=== PATIENT | male | born 1945 | race Caucasian/White ===

== ENCOUNTER → 2016-08-26 | Outpatient (CLI) | payer MEDICARE | END | disposition home or self-care (01) | LOC: LABWHC1 13:05 | PROVIDERS: ATTEND Psychiatry & Neurology Psychiatry | DX: F32.9 Major depressive disorder, single episode, unspecified (principal) | CPT/HCPCS: 36415; 80164; 84450; 84460 ==

== ENCOUNTER 2016-12-30 00:48 | Emergency (ER) | payer MEDICARE ==
--- NOTE | 2016-12-30 00:51 | ED ---
General Adult HPI - General Stated complaint: SEIZURE Time Seen by Provider: 12/30/16 00:49 Source: RN notes reviewed, old records reviewed - History of Present Illness Initial comments: This is a 71-year-old male to the ER for evaluation. This male presents for evaluation of seizure. Patient does have history of seizures. Patient does have medical history of heart disease. Patient did have witnessed seizure by family tonight. History of CVA - Related Data Home Medications Medication Instructions Recorded Confirmed Lisinopril 10 mg PO DAILY 06/14/15 08/12/16 Montelukast Sodium 10 mg PO DAILY 06/14/15 08/12/16 Oxybutynin Chloride [Ditropan] 5 mg PO BID 06/14/15 08/12/16 Albuterol Sulfate [Proair Hfa] 1 - 2 puff INHALATION RT-Q4H PRN 10/14/15 Budesonide/Formoterol Fumarate 2 puff INHALATION RT-BID 10/14/15 08/12/16 [Symbicort 160-4.5 Mcg Inhaler] Multivitamins, Thera [Multivitamin 1 tab PO DAILY 10/29/15 08/12/16 (formulary)] Calcium Carbonate [Tums] 500 mg PO QID 07/24/16 08/12/16 Divalproex ER [Depakote ER] 250 mg PO BID 07/24/16 08/12/16 Escitalopram [Lexapro] 10 mg PO DAILY 07/24/16 08/12/16 guaiFENesin [Mucinex] 600 mg PO Q12HR 07/24/16 08/12/16 Acetaminophen-Codeine 300-30mg 1 tab PO Q6HR PRN 08/12/16 08/12/16 [Tylenol w/codeine #3] Ipratropium-Albuterol Nebulize 3 ml INHALATION RT-TID 08/12/16 08/12/16 [Duoneb 0.5 mg-3 mg/3 ml Soln] Previous Rx's Medication Instructions Recorded Aspirin 81 mg PO BID chew 07/28/16 Atorvastatin [Lipitor] 40 mg PO DAILY #30 tab 07/28/16 Gabapentin [Neurontin] 300 mg PO TID #60 cap 07/28/16 Cefdinir [Omnicef] 300 mg PO BID #6 cap 08/15/16 predniSONE 10 mg PO DAILY #30 tab 08/15/16 Allergies Allergy/AdvReac Type Severity Reaction Status Date / Time No Known Allergies Allergy Verified 08/12/16 13:50 Review of Systems ROS Statement: Those systems with pertinent positive or pertinent negative responses have been documented in the HPI. ROS Other: All systems not noted in ROS Statement are negative. 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 Last Myocardial Infarction Date:: unknown History of Any Multi-Drug Resistant Organisms: None Reported Past Surgical History: Appendectomy, Back Surgery Additional Past Surgical History / Comment(s): EGD with bx/colonoscopy with bx. Past Anesthesia/Blood Transfusion Reactions: No Reported Reaction Additional Past Anesthesia/Blood Transfusion Reaction / Comment(s): Pt has never received blood. Past Psychological History: Anxiety, Depression Additional Psychological History / Comment(s): Pt resides with his neri. He has a walker which he uses prn. He no longer drives. His daughter is his snow plow tractor operator and drives him to appts. He has a legal gaurdian, Rica E-Semble ([facility]). Smoking Status: Former smoker Past Alcohol Use History: None Reported Additional Past Alcohol Use History / Comment(s): quit smoking August 2015, smoked for >50 yrs. Past alcohol abuse-quit drinking August 2015. Past Drug Use History: None Reported Additional Drug Use History / Comment(s): cocaine use in past-quit 2 yrs ago. - Past Family History Father Family Medical History: Cancer Additional Family Medical History / Comment(s): Father had throat cancer. Mother Family Medical History: Cancer Additional Family Medical History / Comment(s): Mother had breast cancer. General Exam General appearance: alert, in no apparent distress Head exam: Present: atraumatic, normocephalic, normal inspection Eye exam: Present: normal appearance, PERRL, EOMI. Absent: scleral icterus, conjunctival injection, periorbital swelling ENT exam: Present: normal exam, mucous membranes moist Neck exam: Present: normal inspection. Absent: tenderness, meningismus, lymphadenopathy Respiratory exam: Present: normal lung sounds bilaterally. Absent: respiratory distress, wheezes, rales, rhonchi, stridor Cardiovascular Exam: Present: regular rate, normal rhythm, normal heart sounds. Absent: systolic murmur, diastolic murmur, rubs, gallop, clicks GI/Abdominal exam: Present: soft, normal bowel sounds. Absent: distended, tenderness, guarding, rebound, rigid Extremities exam: Present: normal inspection, full ROM, normal capillary refill. Absent: tenderness, pedal edema, joint swelling, calf tenderness Back exam: Present: normal inspection Neurological exam: Present: alert, oriented X3, CN II-XII intact Psychiatric exam: Present: normal affect, normal mood Skin exam: Present: warm, dry, intact, normal color. Absent: rash Course Vital Signs 12/30/16 01:03 Temperature 97.6 F Pulse Rate 89 Respiratory 16 Rate Blood Pressure 125/88 O2 Sat by Pulse 93 L Oximetry - Reevaluation(s) Reevaluation #1: 12/30/16 02:33 Family family states patient is taking Depakote as prescribed EKG Findings - EKG Comments: EKG Findings:: EKG shows sinus rhythm rate of 80, NC 134, QRS 70, QTC 470 Medical Decision Making - Medical Decision Making 71-year-old male ER for evaluation of seizure, breakthrough seizure, at this point patient is awake alert no seizure-like activity, level is normal patient can be discharged home - Lab Data Result diagrams: 12/30/16 01:38 12/30/16 01:38 Lab Results 12/30/16 12/30/16 12/30/16 Range/Units 01:38 01:38 01:38 WBC 7.5 (3.8-10.6) k/uL RBC 3.91 L (4.30-5.90) m/uL Hgb 12.7 L (13.0-17.5) gm/dL Hct 37.4 L (39.0-53.0) % MCV 95.6 (80.0-100.0) fL MCH 32.4 (25.0-35.0) pg MCHC 33.8 (31.0-37.0) g/dL RDW 12.9 (11.5-15.5) % Plt Count 242 (150-450) k/uL Neutrophils % 63 % Lymphocytes % 24 % Monocytes % 7 % Eosinophils % 3 % Basophils % 0 % Neutrophils # 4.8 (1.3-7.7) k/uL Lymphocytes # 1.8 (1.0-4.8) k/uL Monocytes # 0.5 (0-1.0) k/uL Eosinophils # 0.2 (0-0.7) k/uL Basophils # 0.0 (0-0.2) k/uL PT (9.0-12.0) sec INR (<1.1) APTT (22.0-30.0) sec Sodium 129 L (137-145) mmol/L Potassium 4.1 (3.5-5.1) mmol/L Chloride 96 L (98-107) mmol/L Carbon Dioxide 25 (22-30) mmol/L Anion Gap 8 mmol/L BUN 15 (9-20) mg/dL Creatinine 0.90 (0.66-1.25) mg/dL Est GFR (MDRD) Af Amer >60 (>60 ml/min/1.73 sqM) Est GFR (MDRD) Non-Af >60 (>60 ml/min/1.73 sqM) Glucose 91 (74-99) mg/dL Calcium 8.9 (8.4-10.2) mg/dL Phosphorus 3.1 (2.5-4.5) mg/dL Magnesium 1.9 (1.6-2.3) mg/dL Total Bilirubin 0.3 (0.2-1.3) mg/dL AST 26 (17-59) U/L ALT 33 (21-72) U/L Alkaline Phosphatase 65 (38-126) U/L Total Creatine Kinase 152 (55-170) U/L CK-MB (CK-2) 3.5 H* (0.0-2.4) ng/mL CK-MB (CK-2) Rel Index 2.3 Troponin I <0.012 (0.000-0.034) ng/mL Total Protein 6.1 L (6.3-8.2) g/dL Albumin 3.5 (3.5-5.0) g/dL 12/30/16 Range/Units 01:38 WBC (3.8-10.6) k/uL RBC (4.30-5.90) m/uL Hgb (13.0-17.5) gm/dL Hct (39.0-53.0) % MCV (80.0-100.0) fL MCH (25.0-35.0) pg MCHC (31.0-37.0) g/dL RDW (11.5-15.5) % Plt Count (150-450) k/uL Neutrophils % % Lymphocytes % % Monocytes % % Eosinophils % % Basophils % % Neutrophils # (1.3-7.7) k/uL Lymphocytes # (1.0-4.8) k/uL Monocytes # (0-1.0) k/uL Eosinophils # (0-0.7) k/uL Basophils # (0-0.2) k/uL PT 12.2 H (9.0-12.0) sec INR 1.2 (<1.1) APTT 26.9 (22.0-30.0) sec Sodium (137-145) mmol/L Potassium (3.5-5.1) mmol/L Chloride (98-107) mmol/L Carbon Dioxide (22-30) mmol/L Anion Gap mmol/L BUN (9-20) mg/dL Creatinine (0.66-1.25) mg/dL Est GFR (MDRD) Af Amer (>60 ml/min/1.73 sqM) Est GFR (MDRD) Non-Af (>60 ml/min/1.73 sqM) Glucose (74-99) mg/dL Calcium (8.4-10.2) mg/dL Phosphorus (2.5-4.5) mg/dL Magnesium (1.6-2.3) mg/dL Total Bilirubin (0.2-1.3) mg/dL AST (17-59) U/L ALT (21-72) U/L Alkaline Phosphatase (38-126) U/L Total Creatine Kinase (55-170) U/L CK-MB (CK-2) (0.0-2.4) ng/mL CK-MB (CK-2) Rel Index Troponin I (0.000-0.034) ng/mL Total Protein (6.3-8.2) g/dL Albumin (3.5-5.0) g/dL - Radiology Data Radiology results: report reviewed (CT brain is negative for acute disease), image reviewed Disposition Clinical Impression: Altered mental status, Generalized seizure Disposition: HOME SELF-CARE Condition: Good Instructions: Recurrent Seizures in Adults (ED) Referrals: Errol Henderson MD [Primary Care Provider] - 1-2 days
[2016-12-30] MEDS ORDERED: SODIUM CHLORIDE 0.9% 500 ML IV STA (00:52)
[2016-12-30 01:07] VITALS: RESP 16; TEMP 97.6
[2016-12-30 01:52] LABS: Basophils % (A) 0 %; CH 32.5; CHCM 34.1; Eosinophils # (A) 0.2 k/uL (0-0.7); Eosinophils % (A) 3 %; HCT 37.4 % (39.0-53.0); HDW 2.35; HGB 12.7 gm/dL (13.0-17.5); Luc # (Auto) 0.17; Luc % (Auto) 2; Lymphocytes # (A) 1.8 k/uL (1.0-4.8); Lymphocytes % (A) 24 %; MCH 32.4 pg (25.0-35.0); MCHC 33.8 g/dL (31.0-37.0); MCV 95.6 fL (80.0-100.0); Mean Platelet Volume 6.3; Monocytes # (A) 0.5 k/uL (0-1.0); Monocytes % (A) 7 %; Neutrophils # (A) 4.8 k/uL (1.3-7.7); Neutrophils % (A) 63 %; RBC 3.91 m/uL (4.30-5.90); RDW 12.9 % (11.5-15.5); WBC 7.5 k/uL (3.8-10.6)
--- NOTE | 2016-12-30 02:00 | CT ---
EXAM: CT Head Without Intravenous Contrast CLINICAL HISTORY: Reason: weakness TECHNIQUE: Axial computed tomography images of the head/brain without intravenous contrast. Sagittal and coronal reformats were reviewed. CTDI is 77 mGy and DLP is 1047 mGy-cm This CT exam was performed using one or more of the following dose reduction techniques: automated exposure control, adjustment of the mA and/or kV according to patient size, and/or use of iterative reconstruction technique. COMPARISON: Head CT 07-24-16 FINDINGS: No intracranial hemorrhage, abnormal intra- or extra-axial collections or parenchymal lesions are seen. There are involutional changes with prominence of the sulci, basal cisterns and ventricles. Scattered white matter hypoattenuations are present, likely from small vessel disease. The lyles-white differentiation is preserved. No evidence of mass effect, midline shift, or edema. The osseous structures are unremarkable. The visualized portions of the paranasal sinuses are clear. IMPRESSION: 1. No acute intracranial process. 2. Involutional changes with small vessel disease.
[2016-12-30 02:04] LABS: ALT 33 U/L (21-72); AST 26 U/L (17-59); Alkaline Phosphatase 65 U/L (38-126); Anion Gap 8 mmol/L; Blood Urea Nitrogen 15 mg/dL (9-20); Calcium 8.9 mg/dL (8.4-10.2); Carbon Dioxide 25 mmol/L (22-30); Chloride 96 mmol/L (98-107); Glucose 91 mg/dL (74-99); Magnesium 1.9 mg/dL (1.6-2.3); Non-African American GFR(MDRD) >60 (>60 ml/min/1.73 sqM); Phosphorous 3.1 mg/dL (2.5-4.5); Potassium 4.1 mmol/L (3.5-5.1); Sodium 129 mmol/L (137-145); Total Bilirubin 0.3 mg/dL (0.2-1.3); Total Protein 6.1 g/dL (6.3-8.2)
[2016-12-30 02:07] LABS: INR 1.2 (<1.1); Partial Thromboplastin Time 26.9 sec (22.0-30.0); Prothrombin Time 12.2 sec (9.0-12.0)
[2016-12-30 02:12] LABS: Creatine Kinase 152 U/L (55-170)
[2016-12-30 02:24] LABS: Creatine Kinase MB 3.5 ng/mL (0.0-2.4)
[2016-12-30 02:26] LABS: Troponin I <0.012 ng/mL (0.000-0.034)
[2016-12-30 02:49] VITALS: BP 141/65; PULSE 78
== END 2016-12-30 02:49 | disposition home or self-care (01) ==
LOC: EC 00:48
DX: R56.9 Unspecified convulsions (principal); R41.82 Altered mental status, unspecified; F03.90 Unspecified dementia, unspecified severity, without behavioral disturbance, psychotic disturbance, mood disturbance, and anxiety; J44.9 Chronic obstructive pulmonary disease, unspecified; I10 Essential (primary) hypertension; K21.9 Gastro-esophageal reflux disease without esophagitis; F32.9 Major depressive disorder, single episode, unspecified; F41.9 Anxiety disorder, unspecified; Z87.891 Personal history of nicotine dependence; Z79.899 Other long term (current) drug therapy; Z79.51 Long term (current) use of inhaled steroids; Z87.01 Personal history of pneumonia (recurrent)
CPT/HCPCS: 36415; 70450; 80053; 82550; 82553; 83735; 84100; 84484; 85025; 85610; 85730; 93005; 99285

== ENCOUNTER → 2017-01-12 | Outpatient (CLI) | payer MEDICARE ==
--- NOTE | 2017-01-12 08:34 | MR ---
EXAMINATION TYPE: MR brain wo/w con DATE OF EXAM: 01/12/2017 8:14 AM COMPARISON: July 24, 2016 HISTORY: Stroke CONTRAST: Patient received 15 mL intravenous MultiHance gadolinium contrast. Multiplanar and multispin-echo imaging of the brain was performed . Pre and post contrast enhanced i mages are obtained. The ventricles, basal cisterns and sulci overlying the cerebral convexities are moderately enlarged. There is evidence of moderate periventricular white matter ischemic demyelination. Increased signal is also noted within the delma. Remote deep white matter insults are also noted. No acute edema is seen on diffusion weighted imaging. There is no evidence for midline shift or mass effect. Acute intracranial hemorrhage or extra-axial collection is not evident. No enhancing lesions are seen. The paranasal sinuses and mastoid air cells are well-aerated. IMPRESSION: Stable Age-related atrophic and chronic small vessel ischemic change. No acute intracranial process at this time. No enhancing lesions are seen.
== END | disposition home or self-care (01) ==
LOC: RADMRIMAIN 07:05
PROVIDERS: ATTEND Psychiatry & Neurology Pain Medicine
DX: G31.9 Degenerative disease of nervous system, unspecified (principal); I67.82 Cerebral ischemia
CPT/HCPCS: 70553; A9577

== ENCOUNTER → 2017-03-12 | Outpatient (CLI) | payer MEDICARE ==
[2017-03-12 11:04] LABS: Calcium 9.4 mg/dL (8.4-10.2); Magnesium 1.9 mg/dL (1.6-2.3)
[2017-03-12 12:27] LABS: Hemoglobin A1C 5.7 % (4.2-6.1)
[2017-03-14 09:15] LABS: Vitamin E (Alpha Tocopherol) 470 ug/dL (500-1800)
== END | disposition home or self-care (01) ==
LOC: LABWHC1 08:43
PROVIDERS: ATTEND Psychiatry & Neurology Pain Medicine
DX: G40.909 Epilepsy, unspecified, not intractable, without status epilepticus (principal); G89.4 Chronic pain syndrome; Z79.899 Other long term (current) drug therapy
CPT/HCPCS: 36415; 80164; 82306; 82310; 82550; 83036; 83519; 83735; 84207; 84425; 84446; 84590; 84591; 84597

== ENCOUNTER → 2017-05-13 | Outpatient (CLI) | payer MEDICARE ==
[2017-05-13 15:33] LABS: ALT 45 U/L (21-72); AST 31 U/L (17-59)
== END | disposition home or self-care (01) ==
LOC: LABWHC1 15:02
PROVIDERS: ATTEND Psychiatry & Neurology Psychiatry
DX: F32.9 Major depressive disorder, single episode, unspecified (principal)
CPT/HCPCS: 36415; 84450; 84460

== ENCOUNTER → 2017-07-20 | Day surgery (SDC) | payer MEDICARE ==
[2017-07-19 13:27] VITALS: BMI 27.3
[~2017-07-20] MED LIST: CEFTAROLINE FOSAMIL 600 MG in SODIUM CHLORIDE 0.9% 250 ML IVPB ONE; LIDOCAINE 2% INJ 20 MG/ML SQ ONE; cefTRIAXone IN SWFI 1,000 MG/10 ML SYRINGE IVP SCH
[2017-07-20 07:47] VITALS: BP 125/60; RESP 18; TEMP 98.2
[2017-07-20 10:22] VITALS: PULSE 68
--- NOTE | 2017-07-20 11:08 | IR ---
PICC LINE PLACEMENT: HISTORY: Infection requiring long-term antibiotic therapy PROCEDURE: Ultrasound and fluoroscopic guidance of PICC line placement. COMPLICATIONS: None ANESTHESIA: 1. 1% Lidocaine locally. FINDINGS/TECHNIQUE: The procedure was explained to the patient. The risks, complications, benefits and alternatives were discussed and any questions were answered. Informed consent was obtained. The patient was placed supine on the fluoroscopic table and prepped and draped in the usual sterile fas ion. Utilizing a 21 gauge needle and sonographic and fluoroscopic guidance, access in the vein was achieved and there is placement of a 0.018 guidewire. The vein is patent. A 4-F sheath was placed o tamara the guidewire. The guidewire and dilator were removed and a 4-F. PICC line was placed through th e sheath with the tip at the level of the SVC. The sheath was removed, the catheter was flushed and sutured into position. The patient was stable throughout the procedure and remained stable upon disc harge from the Department of Radiology. The vein puncture was patent under ultrasound. A river scale image was obtained to document patency of the vein punctured. All elements of the maximal barrier technique were utilized. FLUOROSCOPY TIME: 0.2 minutes, one image submitted. IMPRESSION: Successful PICC line placement under ultrasound and fluoroscopic guidance.
== END ==
LOC: CATHCVL 07:06
PROVIDERS: ATTEND Radiology Diagnostic Radiology
DX: J44.1 Chronic obstructive pulmonary disease with (acute) exacerbation (principal); M47.816 Spondylosis without myelopathy or radiculopathy, lumbar region; I25.9 Chronic ischemic heart disease, unspecified; I10 Essential (primary) hypertension; M54.6 Pain in thoracic spine; N40.0 Benign prostatic hyperplasia without lower urinary tract symptoms; Z79.82 Long term (current) use of aspirin; Z79.51 Long term (current) use of inhaled steroids; Z79.52 Long term (current) use of systemic steroids; Z79.899 Other long term (current) drug therapy
CPT/HCPCS: 96365; 96366; 36569; 76937; 77001; C1751; C1769; J2001; J1956; J1642; J0712

== ENCOUNTER → 2018-01-25 | Outpatient (CLI) | payer MEDICARE ==
--- NOTE | 2018-01-25 14:46 | US ---
EXAMINATION TYPE: US kidneys/renal and bladder DATE OF EXAM: 01/25/2018 COMPARISON: NONE CLINICAL HISTORY: R94.4 Abn results kidney function studies. Abnormal results of kidney function EXAM MEASUREMENTS: Right Kidney: 10.1x 4.0 x 4.0 cm Left Kidney: 10.1 x 5.5 x 4.6 cm Right Kidney: no evidence of hydronephrosis Left Kidney: lobulated mid/lower pole Bladder: not fully distended Bilateral Jets seen: no There is no evidence for hydronephrosis at this point in time. No nephrolithiasis is seen. The urina ry bladder is anechoic. Cortical medullary differentiation is maintained. IMPRESSION: The bladder is not distended. Lobular contour lower pole left kidney may be normal variant, consider short interval follow-up versus contrast enhanced CT or MRI for better evaluation to exclude mass.
== END | disposition home or self-care (01) ==
LOC: RADUSWWP 13:21
PROVIDERS: ATTEND Family Medicine
DX: R94.4 Abnormal results of kidney function studies (principal)
CPT/HCPCS: 76770

== ENCOUNTER 2018-04-13 13:35 | Inpatient (IN) | payer MEDICARE ==
[2018-04-13] MEDS ORDERED: DIPH,PERTUS(ACELL)TETVAC-LF 0.5 ML VIAL IM ONE (13:41)
--- NOTE | 2018-04-13 13:45 | ED ---
General Adult HPI - General Stated complaint: DIZZINESS, FALL, FACIAL INJURY Time Seen by Provider: 04/13/18 13:35 Source: RN notes reviewed - History of Present Illness Initial comments: This is a 72-year-old male who presents emergency department after he had a fall. Patient states he became dizzy in the parking lot of the hospital on his way to a doctor appointment. Patient states he started to walk fast try to get inside the hospital and then he fell and hit his nose on the ground. Patient states he now has some pain over the nose and a little bit of a headache. Patient denies any loss of consciousness. Patient denies being days. Patient denies any neck pain. Patient denies any numbness weakness. Patient denies any back pain chest pain difficulty breathing shortness of breath. Patient denies abdominal pain. Patient denies any extremity pain. - Related Data Home Medications Medication Instructions Recorded Confirmed Montelukast Sodium 10 mg PO DAILY 06/14/15 04/13/18 Oxybutynin Chloride [Ditropan] 5 mg PO BID 06/14/15 04/13/18 Albuterol Sulfate [Proair Hfa] 1 - 2 puff INHALATION RT-Q4H PRN 10/14/15 Budesonide/Formoterol Fumarate 2 puff INHALATION RT-BID 10/14/15 04/13/18 [Symbicort 160-4.5 Mcg Inhaler] Escitalopram [Lexapro] 10 mg PO DAILY 07/24/16 04/13/18 Gabapentin 600 mg PO TID 06/14/17 04/13/18 HYDROcodone/APAP 10-325MG [[place] 1 tab PO TID PRN 06/14/17 04/13/18 10-325] Primidone [Mysoline] 100 mg PO DAILY 06/14/17 04/13/18 Albuterol Nebulized [Ventolin 2.5 mg INHALATION RT-QID PRN 04/13/18 04/13/18 Nebulized] Divalproex Sodium [Depakote ER] 500 mg PO BID 04/13/18 04/13/18 Donepezil [Aricept] 20 mg PO HS 04/13/18 04/13/18 Ipratropium-Albuterol Nebulize 3 ml INHALATION RT-QID PRN 04/13/18 04/13/18 [Duoneb 0.5 mg-3 mg/3 ml Soln] Metoprolol Tartrate [Lopressor] 12.5 mg PO BID 04/13/18 04/13/18 Omeprazole 40 mg PO DAILY 04/13/18 04/13/18 Ranitidine HCl [Zantac] 150 mg PO BID 04/13/18 04/13/18 Rivaroxaban [Xarelto] 20 mg PO DAILY 04/13/18 04/13/18 rOPINIRole HCL [Requip] 0.5 mg PO TID 04/13/18 04/13/18 Previous Rx's Medication Instructions Recorded Atorvastatin [Lipitor] 40 mg PO DAILY #30 tab 07/28/16 Aspirin 81 mg PO DAILY #0 chew 08/10/17 Furosemide [Lasix] 40 mg PO DAILY #30 tab 08/10/17 Allergies Allergy/AdvReac Type Severity Reaction Status Date / Time No Known Allergies Allergy Verified 04/13/18 14:07 Review of Systems ROS Statement: Those systems with pertinent positive or pertinent negative responses have been documented in the HPI. ROS Other: All systems not noted in ROS Statement are negative. Past Medical History Past Medical History: COPD, CVA/TIA, Dementia, GERD/Reflux, Hyperlipidemia, Hypertension, Memory Impairment, Myocardial Infarction ([place]), Osteoarthritis (OA) , Pneumonia Additional Past Medical History / Comment(s): Dementia, COPD, coronary artery disease, CVA, acid reflux, hyperlipidemia, hypertension, osteoarthritis, hemorrhoids, small hiatal hernia, overactive bladder, chronic back pain, recovering alcoholic and he quit in August 2015 Last Myocardial Infarction Date:: unknown History of Any Multi-Drug Resistant Organisms: None Reported Past Surgical History: Appendectomy, Back Surgery Additional Past Surgical History / Comment(s): EGD with bx/colonoscopy with bx. Past Anesthesia/Blood Transfusion Reactions: No Reported Reaction Additional Past Anesthesia/Blood Transfusion Reaction / Comment(s): Pt has never received blood. Past Psychological History: Anxiety, Depression Smoking Status: Former smoker - Past Family History Father Family Medical History: Cancer Additional Family Medical History / Comment(s): Father had throat cancer. Mother Family Medical History: Cancer Additional Family Medical History / Comment(s): Mother had breast cancer. General Exam - General Exam Comments Initial Comments: GENERAL: Patient is well-developed and well-nourished. Patient is nontoxic and well- hydrated and is in mild distress. ENT: Neck is soft and supple. No significant lymphadenopathy is noted. Oropharynx is clear. Moist mucous membranes. Patient's in a c-collar did not move his neck until we get a CAT scan of the patient's C-spine EYES: The sclera were anicteric and conjunctiva were pink and moist. Extraocular movements were intact and pupils were equal round and reactive to light. Eyelids were unremarkable. PULMONARY: Unlabored respirations. Good breath sounds bilaterally. No audible rales rhonchi or wheezing was noted. CARDIOVASCULAR: There is a regular rate and rhythm without any murmurs gallops or rubs. ABDOMEN: Soft and nontender with normal bowel sounds. No palpable organomegaly was noted. There is no palpable pulsatile mass. SKIN: Patient has about a 1-1/2 cm laceration nose. Patient also has some superficial abrasions of the right wrist and fingers of the right hand NEUROLOGIC: Patient is alert and oriented x3. Cranial nerves II through XII are grossly intact. Motor and sensory are also intact. Normal speech, volume and content. Symmetrical smile. MUSCULOSKELETAL: Normal extremities with adequate strength and full range of motion. No lower extremity swelling or edema. No calf tenderness. LYMPHATICS: No significant lymphadenopathy is noted PSYCHIATRIC: Normal psychiatric evaluation. Course Vital Signs 04/13/18 04/13/18 13:39 15:25 Temperature 98.8 F Pulse Rate 62 55 L Respiratory 18 18 Rate Blood Pressure 137/59 140/67 O2 Sat by Pulse 96 97 Oximetry Procedures - Laceration Laceration #1 Consent Obtained: verbal consent Time Out Performed: Yes Indication: laceration Site: other (Nose) Size (cm): 1 Depth: simple, single layer Technique: other (Tissue adhesive) Patient Tolerated Procedure: well, no complications Medical Decision Making - Medical Decision Making EKG shows sinus bradycardia with PVC at 52 bpm KS interval is on a 42 QRS is 82 QT interval is 474 QTC is 440. Patient's EKG shows no ST segment elevation or depression or T wave abnormalities are noted. CT of the brain and C-spine are negative for any acute abnormality. However the CT of the brain does show a nasal bone fracture it's nondisplaced. Patient was given Ancef because it is an open fracture because the laceration. I spoke with sounds physician they agreed to admit the patient admitted the patient I wrote admitting orders. Patient's heart rate dipped down into the 30s a repeat EKG was done and showed that he had a 41 heart rate was a sinus bradycardia with a KS interval of 142 QRS is 86 QT interval is 508 QTC was 419. Patient was a symptomatically this time patient's EKG shows no ST segment elevation or depression. - Lab Data Result diagrams: 04/13/18 13:56 04/13/18 13:56 Lab Results 04/13/18 04/13/18 04/13/18 Range/Units 13:56 13:56 13:56 WBC 7.6 (3.8-10.6) k/uL RBC 4.19 L (4.30-5.90) m/uL Hgb 12.8 L (13.0-17.5) gm/dL Hct 40.5 (39.0-53.0) % MCV 96.8 (80.0-100.0) fL MCH 30.5 (25.0-35.0) pg MCHC 31.5 (31.0-37.0) g/dL RDW 13.5 (11.5-15.5) % Plt Count 314 (150-450) k/uL Neutrophils % 50 % Lymphocytes % 38 % Monocytes % 7 % Eosinophils % 3 % Basophils % 1 % Neutrophils # 3.8 (1.3-7.7) k/uL Lymphocytes # 2.9 (1.0-4.8) k/uL Monocytes # 0.5 (0-1.0) k/uL Eosinophils # 0.2 (0-0.7) k/uL Basophils # 0.1 (0-0.2) k/uL PT (9.0-12.0) sec INR (<1.2) APTT (22.0-30.0) sec Sodium 139 (137-145) mmol/L Potassium 4.3 (3.5-5.1) mmol/L Chloride 107 (98-107) mmol/L Carbon Dioxide 27 (22-30) mmol/L Anion Gap 5 mmol/L BUN 16 (9-20) mg/dL Creatinine 1.08 (0.66-1.25) mg/dL Est GFR (CKD-EPI)AfAm 78 (>60 ml/min/1.73 sqM) Est GFR (CKD-EPI)NonAf 68 (>60 ml/min/1.73 sqM) Glucose 91 (74-99) mg/dL Calcium 8.9 (8.4-10.2) mg/dL Magnesium 1.9 (1.6-2.3) mg/dL Total Bilirubin 0.4 (0.2-1.3) mg/dL AST 31 (17-59) U/L ALT 39 (21-72) U/L Alkaline Phosphatase 65 (38-126) U/L Total Creatine Kinase 56 (55-170) U/L CK-MB (CK-2) 1.3 (0.0-2.4) ng/mL CK-MB (CK-2) Rel Index 2.3 Troponin I <0.012 (0.000-0.034) ng/mL Total Protein 6.0 L (6.3-8.2) g/dL Albumin 3.3 L (3.5-5.0) g/dL 04/13/18 Range/Units 13:56 WBC (3.8-10.6) k/uL RBC (4.30-5.90) m/uL Hgb (13.0-17.5) gm/dL Hct (39.0-53.0) % MCV (80.0-100.0) fL MCH (25.0-35.0) pg MCHC (31.0-37.0) g/dL RDW (11.5-15.5) % Plt Count (150-450) k/uL Neutrophils % % Lymphocytes % % Monocytes % % Eosinophils % % Basophils % % Neutrophils # (1.3-7.7) k/uL Lymphocytes # (1.0-4.8) k/uL Monocytes # (0-1.0) k/uL Eosinophils # (0-0.7) k/uL Basophils # (0-0.2) k/uL PT 13.1 H (9.0-12.0) sec INR 1.4 H (<1.2) APTT 28.8 (22.0-30.0) sec Sodium (137-145) mmol/L Potassium (3.5-5.1) mmol/L Chloride (98-107) mmol/L Carbon Dioxide (22-30) mmol/L Anion Gap mmol/L BUN (9-20) mg/dL Creatinine (0.66-1.25) mg/dL Est GFR (CKD-EPI)AfAm (>60 ml/min/1.73 sqM) Est GFR (CKD-EPI)NonAf (>60 ml/min/1.73 sqM) Glucose (74-99) mg/dL Calcium (8.4-10.2) mg/dL Magnesium (1.6-2.3) mg/dL Total Bilirubin (0.2-1.3) mg/dL AST (17-59) U/L ALT (21-72) U/L Alkaline Phosphatase (38-126) U/L Total Creatine Kinase (55-170) U/L CK-MB (CK-2) (0.0-2.4) ng/mL CK-MB (CK-2) Rel Index Troponin I (0.000-0.034) ng/mL Total Protein (6.3-8.2) g/dL Albumin (3.5-5.0) g/dL Disposition Clinical Impression: Fall, Bradycardia, Dizziness, Nasal bones, open fracture Disposition: ADMITTED IP TO THIS [facility] Time of Disposition: 15:21
[2018-04-13 14:08] LABS: Basophils # (A) 0.1 k/uL (0-0.2); Basophils % (A) 1 %; Eosinophils # (A) 0.2 k/uL (0-0.7); Eosinophils % (A) 3 %; HCT 40.5 % (39.0-53.0); HGB 12.8 gm/dL (13.0-17.5); Lymphocytes # (A) 2.9 k/uL (1.0-4.8); Lymphocytes % (A) 38 %; MCH 30.5 pg (25.0-35.0); MCHC 31.5 g/dL (31.0-37.0); MCV 96.8 fL (80.0-100.0); Mean Platelet Volume 6.6; Monocytes # (A) 0.5 k/uL (0-1.0); Monocytes % (A) 7 %; Neutrophils # (A) 3.8 k/uL (1.3-7.7); Neutrophils % (A) 50 %; Platelet Count 314 k/uL (150-450); RBC 4.19 m/uL (4.30-5.90); RDW 13.5 % (11.5-15.5); WBC 7.6 k/uL (3.8-10.6)
[2018-04-13 14:24] LABS: Albumin 3.3 g/dL (3.5-5.0); Calcium 8.9 mg/dL (8.4-10.2); Magnesium 1.9 mg/dL (1.6-2.3); Potassium 4.3 mmol/L (3.5-5.1); Total Bilirubin 0.4 mg/dL (0.2-1.3)
[2018-04-13 14:25] LABS: INR 1.4 (<1.2); Partial Thromboplastin Time 28.8 sec (22.0-30.0); Prothrombin Time 13.1 sec (9.0-12.0)
[2018-04-13 14:30] LABS: Creatine Kinase 56 U/L (55-170)
[2018-04-13 14:42] LABS: Creatine Kinase MB 1.3 ng/mL (0.0-2.4); Troponin I <0.012 ng/mL (0.000-0.034)
--- NOTE | 2018-04-13 15:13 | CT ---
EXAMINATION TYPE: CT brain nette wo con DATE OF EXAM: 04/13/2018 COMPARISON: 12/30/2016 HISTORY: Trauma, fall CT DLP: [address] of the brain was performed. The ventricles, basal cisterns and sulci overlying the cerebral convexities demonstrate mild enlargem ent. There is no evidence for intracranial hemorrhage or sulcal effacement. There is decreased attenuatio n about the periventricular white matter and deep white matter of both cerebral hemispheres, compatib le with chronic small vessel ischemia. No mass effects are seen. If symptoms persist consider MRI. Osseous calvarium is intact. Chronic sinusitis noted. IMPRESSION: 1. Age related atrophic and chronic small vessel ischemic change without acute intracranial process seen at this time. CT Cervical Spine: Unenhanced CT of the cervical spine was performed with bone and soft tissue window settings submitted . Coronal and sagittal reconstruction is obtained. There is normal alignment and prevertebral soft tissues. No evidence for acute cervical fracture . Scattered degenerative disc disease and spondylosis. Biapical scarring. IMPRESSION: 1. No evidence for acute fracture or subluxation of the cervical spine.
[2018-04-13] MEDS ORDERED: ACETAMINOPHEN TAB 500 MG TAB PO STA (15:17)
[2018-04-13] MEDS ORDERED: TOPICAL SKIN ADHESIVE 1 EACH AMP TOPICAL ONE (15:18)
[2018-04-13] MEDS ORDERED: ceFAZolin IN SWFI 2 GM/20 ML SYRINGE IVP STA (15:21)
[2018-04-13] MEDS ORDERED: SODIUM CHLORIDE 0.9% 1,000 ML IV ONE (15:29)
[2018-04-13] MEDS ORDERED: traMADol 50 MG TAB PO PRN (18:04)
[2018-04-13] MEDS ORDERED: NALOXONE 0.4 MG/ML 1 ML VIAL IV PRN (18:04)
--- NOTE | 2018-04-13 18:26 | P.HPIM ---
History of Present Illness H&P Date: 04/13/18 Chief Complaint: Fall 72-year-old male who presents emergency department after he had a fall. Patient states he was not wearing the oxygen that he is supposed to, became dizzy while he was walking fast in the parking lot of the hospital on his way to a doctor appointment. He had slight chest pain after the fall. He denied losing consciousness. After the fall he hit his nose as well as right knee on the ground. Patient states he now has some pain over the nose and a little bit of a headache. No seizure activity, no focal weakness, no blurry vision or double vision. No slurred speech. No neck pain. He stated that he has chronic shortness of breath and that has not gotten worse lately. He felt nauseous but no vomiting, no abdominal pain. No fevers but he has some chills at times. In the emergency department he was found to have significant bradycardia with heart rate ranging between 40-50. He was subsequently admitted for further evaluation and management. 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 Past Anesthesia/Blood Transfusion Reactions: No Reported Reaction Additional Past Anesthesia/Blood Transfusion Reaction / Comment(s): Pt has never received blood. Past Psychological History: Anxiety, Depression Smoking Status: Former smoker - Past Family History Father Family Medical History: Cancer Additional Family Medical History / Comment(s): Father had throat cancer. Mother Family Medical History: Cancer Additional Family Medical History / Comment(s): Mother had breast cancer. Medications and Allergies Home Medications Medication Instructions Recorded Confirmed Type Montelukast Sodium 10 mg PO DAILY 06/14/15 04/13/18 History Oxybutynin Chloride [Ditropan] 5 mg PO BID 06/14/15 04/13/18 History Albuterol Sulfate [Proair Hfa] 1 - 2 puff INHALATION RT-Q4H PRN 10/14/15 History Budesonide/Formoterol Fumarate 2 puff INHALATION RT-BID 10/14/15 04/13/18 History [Symbicort 160-4.5 Mcg Inhaler] Escitalopram [Lexapro] 10 mg PO DAILY 07/24/16 04/13/18 History Atorvastatin [Lipitor] 40 mg PO DAILY #30 tab 07/28/16 04/13/18 Rx Gabapentin 600 mg PO TID 06/14/17 04/13/18 History HYDROcodone/APAP 10-325MG [[place] 1 tab PO TID PRN 06/14/17 04/13/18 History 10-325] Primidone [Mysoline] 100 mg PO DAILY 06/14/17 04/13/18 History Aspirin 81 mg PO DAILY #0 chew 08/10/17 04/13/18 Rx Furosemide [Lasix] 40 mg PO DAILY #30 tab 08/10/17 04/13/18 Rx Albuterol Nebulized [Ventolin 2.5 mg INHALATION RT-QID PRN 04/13/18 04/13/18 History Nebulized] Divalproex Sodium [Depakote ER] 500 mg PO BID 04/13/18 04/13/18 History Donepezil [Aricept] 20 mg PO HS 04/13/18 04/13/18 History Ipratropium-Albuterol Nebulize 3 ml INHALATION RT-QID PRN 04/13/18 04/13/18 History [Duoneb 0.5 mg-3 mg/3 ml Soln] Metoprolol Tartrate [Lopressor] 12.5 mg PO BID 04/13/18 04/13/18 History Omeprazole 40 mg PO DAILY 04/13/18 04/13/18 History Ranitidine HCl [Zantac] 150 mg PO BID 04/13/18 04/13/18 History Rivaroxaban [Xarelto] 20 mg PO DAILY 04/13/18 04/13/18 History rOPINIRole HCL [Requip] 0.5 mg PO TID 08/22/18 08/22/18 History Allergies Allergy/AdvReac Type Severity Reaction Status Date / Time No Known Allergies Allergy Verified 04/13/18 14:07 Physical Exam Vitals: Vital Signs Temp Pulse Resp BP Pulse Ox 04/13/18 17:28 46 L 18 136/63 100 04/13/18 16:19 52 L 04/13/18 16:12 38 L 18 164/84 99 04/13/18 15:25 55 L 18 140/67 97 04/13/18 13:39 98.8 F 62 18 137/59 96 Intake and Output 04/13/18 04/13/18 04/13/18 06:59 14:59 22:59 Other: Weight 79.379 kg Constitutional: No acute distress, conversant, pleasant Eyes:Anicteric sclerae, moist conjunctiva, no lid-lag, PERRLA, ENMT: Bloody nose, oropharynx clear, no erythema, exudates Neck: Supple, FROM, no masses, or JVD, No carotid bruits, No thyromegaly Lungs: Clear to auscultation, Clear to percussion, Normal respiratory effort, no accessory muscle use Cardiovascular: Bradycardia, irregular, No murmurs, gallops, or rubs, No peripheral edema Abdominal: Soft, Nontender, no guarding, rebound or rigidity, Normoactive bowel sounds, No hepatomegaly, No splenomegaly, No palpable mass Skin: Normal temperature, tone, texture, turgor, no induration, No subcutaneous nodules, No rash, lesions, No ulcers Extremities: Right knee bruise, no digital cyanosis, No clubbing, Pedal pulses intact and symmetrical, Radial pulses intact and symmetrical, No calf tenderness Psychiatric: Alert and oriented to person, place and time, appropriate affect, intact judgement Neuro: Muscles Strength 5/5 in all 4 extremities, Sensation to light touch grossly present throughout, Cranial nerves II-XII grossly intact, no focal sensory deficits Results CBC & Chem 7: 04/13/18 13:56 04/13/18 13:56 Labs: Abnormal Lab Results - Last 24 Hours (Table) 04/13/18 04/13/18 04/13/18 Range/Units 13:56 13:56 13:56 RBC 4.19 L (4.30-5.90) m/uL Hgb 12.8 L (13.0-17.5) gm/dL PT 13.1 H (9.0-12.0) sec INR 1.4 H (<1.2) Total Protein 6.0 L (6.3-8.2) g/dL Albumin 3.3 L (3.5-5.0) g/dL Assessment and Plan Plan: Severe bradycardia, high degree AV block Might qualify for a pacemaker, EKG reviewed Cardiology evaluation Monitor on telemetry Admit to selective Chest pain/ with history of CAD and [place] Rule out ACS, initial troponin negative Cycle troponins Monitor on telemetry History of COPD Stable No exacerbation Continue home inhalers and nebulizers. 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
[2018-04-13] MEDS: IPRATROPIUM-ALBUTEROL 3 ML NEB INHALATION PRN (19:48)
[2018-04-13] MEDS: SYMBICORT 160-4.5 MCG INHALER INHALATION SCH (19:48)
[2018-04-13] MEDS: HYDROcodone/APAP 10-325MG 1 EACH TAB PO PRN (20:25)
[2018-04-13] MEDS: FAMOTIDINE 20 MG TAB PO SCH (20:27)
[2018-04-13] MEDS: DONEPEZIL 10 MG TAB PO SCH (20:27)
[2018-04-13] MEDS: DIVALPROEX ER 500 MG TAB.ER.24H PO SCH (20:28)
[2018-04-13] MEDS: OXYBUTYNIN CHLORIDE 5 MG TAB PO SCH (20:28)
[2018-04-13] MEDS: GABAPENTIN 300 MG CAP PO SCH (20:28)
[2018-04-13] MEDS: ACETAMINOPHEN TAB 325 MG TAB PO PRN (23:09)
[2018-04-13 23:30] LABS: Creatine Kinase 62 U/L (55-170)
[2018-04-13 23:42] LABS: Creatine Kinase MB 1.7 ng/mL (0.0-2.4); Troponin I <0.012 ng/mL (0.000-0.034)
[2018-04-14 06:04] LABS: Basophils # (A) 0.1 k/uL (0-0.2); Basophils % (A) 1 %; Eosinophils # (A) 0.2 k/uL (0-0.7); Eosinophils % (A) 3 %; HCT 37.7 % (39.0-53.0); HGB 12.2 gm/dL (13.0-17.5); Lymphocytes # (A) 2.4 k/uL (1.0-4.8); Lymphocytes % (A) 36 %; MCH 31.3 pg (25.0-35.0); MCHC 32.2 g/dL (31.0-37.0); MCV 96.9 fL (80.0-100.0); Mean Platelet Volume 6.8; Monocytes # (A) 0.6 k/uL (0-1.0); Monocytes % (A) 9 %; Neutrophils # (A) 3.2 k/uL (1.3-7.7); Neutrophils % (A) 49 %; Platelet Count 264 k/uL (150-450); RBC 3.89 m/uL (4.30-5.90); RDW 13.2 % (11.5-15.5); WBC 6.5 k/uL (3.8-10.6)
[2018-04-14 06:14] LABS: ALT 38 U/L (21-72); AST 26 U/L (17-59); Albumin 2.9 g/dL (3.5-5.0); Alkaline Phosphatase 61 U/L (38-126); Anion Gap 6 mmol/L; Blood Urea Nitrogen 16 mg/dL (9-20); Calcium 8.7 mg/dL (8.4-10.2); Carbon Dioxide 25 mmol/L (22-30); Chloride 107 mmol/L (98-107); Glucose 83 mg/dL (74-99); Phosphorus 4.2 mg/dL (2.5-4.5); Potassium 4.3 mmol/L (3.5-5.1); Sodium 138 mmol/L (137-145); Total Bilirubin 0.3 mg/dL (0.2-1.3); Total Protein 5.4 g/dL (6.3-8.2)
[2018-04-14 06:27] LABS: Creatine Kinase 55 U/L (55-170)
[2018-04-14] MEDS: PANTOPRAZOLE 40 MG TABLET PO SCH (06:30)
[2018-04-14 06:39] LABS: Creatine Kinase MB 2.2 ng/mL (0.0-2.4); Troponin I <0.012 ng/mL (0.000-0.034)
[2018-04-14] MEDS: FAMOTIDINE 20 MG TAB PO SCH ×2 (07:58→20:21)
[2018-04-14] MEDS: ESCITALOPRAM 10 MG TAB PO SCH (07:58)
[2018-04-14] MEDS: GABAPENTIN 300 MG CAP PO SCH ×3 (07:58→20:21)
[2018-04-14] MEDS: ASPIRIN 81 MG PO SCH (07:58)
[2018-04-14] MEDS: MONTELUKAST 10 MG TAB PO SCH (07:58)
[2018-04-14] MEDS: ATORVASTATIN 40 MG TAB PO SCH (07:58)
[2018-04-14] MEDS: RIVAROXABAN 20 MG TAB PO SCH (07:58)
[2018-04-14] MEDS: OXYBUTYNIN CHLORIDE 5 MG TAB PO SCH ×2 (07:59→20:20)
[2018-04-14] MEDS: FUROSEMIDE 40 MG TAB PO SCH (07:59)
[2018-04-14] MEDS: DIVALPROEX ER 500 MG TAB.ER.24H PO SCH ×2 (07:59→20:21)
[2018-04-14] MEDS: PRIMIDONE 50 MG TAB PO SCH (07:59)
[2018-04-14] MEDS: HYDROcodone/APAP 10-325MG 1 EACH TAB PO PRN ×2 (08:10→18:18)
[2018-04-14] MEDS: IPRATROPIUM-ALBUTEROL 3 ML NEB INHALATION PRN ×3 (08:40→15:56)
[2018-04-14] MEDS: SYMBICORT 160-4.5 MCG INHALER INHALATION SCH ×2 (08:40→18:59)
--- NOTE | 2018-04-14 09:58 | P.PN ---
Subjective Progress Note Date: 04/14/18 Principal diagnosis: Dizziness and fall Discussed with the patient's daughter, patient has been having congestion and cough with phlegm production over the last year. Daughter is requesting pulmonary medicine to evaluate patient because of history of severe COPD. Otherwise patient denied having dizziness, pain, fevers or chills. Objective - Vital Signs Vital signs: Vital Signs Temp 97.9 F 04/14/18 08:00 Pulse 64 04/14/18 08:56 Resp 18 04/14/18 08:00 BP 141/61 04/14/18 08:00 Pulse Ox 99 04/14/18 08:00 Intake & Output 04/13/18 04/14/18 04/14/18 18:59 06:59 18:59 Intake Total 118 Output Total 0 325 Balance 0 -325 118 Weight 79.379 kg 75.5 kg Intake: Oral 118 Output: Urine 0 325 Other: # Voids 1 # Bowel Movements 1 - Exam Constitutional: No acute distress, conversant, pleasant Eyes:Anicteric sclerae, moist conjunctiva, no lid-lag, PERRLA, ENMT: Bloody nose, oropharynx clear, no erythema, exudates Neck: Supple, FROM, no masses, or JVD, No carotid bruits, No thyromegaly Lungs: Clear to auscultation, Clear to percussion, Normal respiratory effort, no accessory muscle use Cardiovascular: RRR, No murmurs, gallops, or rubs, No peripheral edema Abdominal: Soft, Nontender, no guarding, rebound or rigidity, Normoactive bowel sounds, No hepatomegaly, No splenomegaly, No palpable mass Skin: Normal temperature, tone, texture, turgor, no induration, No subcutaneous nodules, No rash, lesions, No ulcers Extremities: Right knee bruise, no digital cyanosis, No clubbing, Pedal pulses intact and symmetrical, Radial pulses intact and symmetrical, No calf tenderness Psychiatric: Alert and oriented to person, place and time, appropriate affect, intact judgement Neuro: Muscles Strength 5/5 in all 4 extremities, Sensation to light touch grossly present throughout, Cranial nerves II-XII grossly intact, no focal sensory deficits - Labs CBC & Chem 7: 04/14/18 05:40 04/14/18 05:40 Labs: Abnormal Lab Results - Last 24 Hours (Table) 04/13/18 04/13/1804/13/18 Range/Units 13:56 13:56 13:56 RBC 4.19 L (4.30-5.90) m/uL Hgb 12.8 L (13.0-17.5) gm/dL Hct (39.0-53.0) % PT 13.1 H (9.0-12.0) sec INR 1.4 H (<1.2) Total Protein 6.0 L (6.3-8.2) g/dL Albumin 3.3 L (3.5-5.0) g/dL 04/14/18 04/14/18 Range/Units 05:40 05:40 RBC 3.89 L (4.30-5.90) m/uL Hgb 12.2 L (13.0-17.5) gm/dL Hct 37.7 L (39.0-53.0) % PT (9.0-12.0) sec INR (<1.2) Total Protein 5.4 L (6.3-8.2) g/dL Albumin 2.9 L (3.5-5.0) g/dL Assessment and Plan Plan: Severe bradycardia, high degree AV block Noted on admission Might qualify for a pacemaker, EKG reviewed Cardiology evaluation, discussed with [employer] Monitor on telemetry, heart rate improved today Chest pain/ with history of CAD and MD ACS ruled out History of COPD Stable No exacerbation Consult pulmonary Continue home inhalers and nebulizers. 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
--- NOTE | 2018-04-14 10:58 | P.CRDCN ---
History of Present Illness Consult date: 04/14/18 Requesting physician: Yesenia Moore Reason for Consult (text): Bradycardia Chief complaint: Fall History of present illness: This is a pleasant 72-year-old gentleman has history of dementia, his daughter is his guardian and she is also at bedside, she provided most of his past medical history. Patient has severe COPD with home O2 use,prior CVA, hypertension, hyperlipidemia, prior history of smoking, patient apparently quit smoking 2 years ago. Patient apparently was at his doctor's office yesterday in the parking lot, became extremely dizzy and fell to the ground. It is unclear as to whether or not patient had a complete syncopal episode or not. He has a large laceration to the nose area for which he required stitches. According to the daughter, patient has been having episodes of dizziness and occasional falls at home. EKG on arrival here shows a sinus bradycardia with nonspecific ST-T wave changes and occasional PVCs. Subsequent EKG shows same. CT of the cervical spine was performed, did not reveal any evidence for acute fracture of subluxation of the spine. CT of the brain did not reveal any acute intracranial process. Blood pressure on arrival here 136/60 with a heart rate in the 60s, 96% on 3 L of oxygen. Let pressure this morning 140/60 with a heart rate in the 60s, 99% on 3 L of oxygen. White blood cell count is normal, hemoglobin 12.2, platelet count 264. Sodium 138, potassium 4.3, BUN 16, creatinine 0.9. Troponins are negative 3. At the time of my examination this morning, patient is complaining of a significant amount of pain in his nose area , no other complaints. Daughter is at bedside. 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 Past Anesthesia/Blood Transfusion Reactions: No Reported Reaction Additional Past Anesthesia/Blood Transfusion Reaction / Comment(s): Pt has never received blood. Past Psychological History: Anxiety, Depression Additional Psychological History / Comment(s): Pt resides with his neri. He has a walker which he uses prn.home 02 He no longer drives. His daughter is his retort setter and drives him to appts. his legal guardain/ dpoa is, Rica Hess ([facility] ). Smoking Status: Former smoker Past Alcohol Use History: None Reported Additional Past Alcohol Use History / Comment(s): quit smoking August 2015, smoked for >50 yrs. Past alcohol abuse-quit drinking August 2015. Past Drug Use History: None Reported Additional Drug Use History / Comment(s): cocaine use in past-quit 4-5yrs ago.either 2012 or 2013 per pt. - Past Family History Father Family Medical History: Cancer Additional Family Medical History / Comment(s): Father had throat cancer. Mother Family Medical History: Cancer Additional Family Medical History / Comment(s): Mother had breast cancer. Medications and Allergies Home Medications Medication Instructions Recorded Confirmed Type Montelukast Sodium 10 mg PO DAILY 06/14/15 04/13/18 History Oxybutynin Chloride [Ditropan] 5 mg PO BID 06/14/15 04/13/18 History Albuterol Sulfate [Proair Hfa] 1 - 2 puff INHALATION RT-Q4H PRN 10/14/15 History Budesonide/Formoterol Fumarate 2 puff INHALATION RT-BID 10/14/15 04/13/18 History [Symbicort 160-4.5 Mcg Inhaler] Escitalopram [Lexapro] 10 mg PO DAILY 07/24/16 04/13/18 History Atorvastatin [Lipitor] 40 mg PO DAILY #30 tab 07/28/16 04/13/18 Rx Gabapentin 600 mg PO TID 06/14/17 04/13/18 History HYDROcodone/APAP 10-325MG [[place] 1 tab PO TID PRN 06/14/17 04/13/18 History 10-325] Primidone [Mysoline] 100 mg PO DAILY 06/14/17 04/13/18 History Aspirin 81 mg PO DAILY #0 chew 08/10/17 04/13/18 Rx Furosemide [Lasix] 40 mg PO DAILY #30 tab 08/10/17 04/13/18 Rx Albuterol Nebulized [Ventolin 2.5 mg INHALATION RT-QID PRN 04/13/18 04/13/18 History Nebulized] Divalproex Sodium [Depakote ER] 500 mg PO BID 04/13/18 04/13/18 History Donepezil [Aricept] 20 mg PO HS 04/13/18 04/13/18 History Ipratropium-Albuterol Nebulize 3 ml INHALATION RT-QID PRN 04/13/18 04/13/18 History [Duoneb 0.5 mg-3 mg/3 ml Soln] Metoprolol Tartrate [Lopressor] 12.5 mg PO BID 04/13/18 04/13/18 History Omeprazole 40 mg PO DAILY 04/13/18 04/13/18 History Ranitidine HCl [Zantac] 150 mg PO BID 04/13/18 04/13/18 History Rivaroxaban [Xarelto] 20 mg PO DAILY 04/13/18 04/13/18 History rOPINIRole HCL [Requip] 0.5 mg PO TID 04/13/18 04/13/18 History Allergies Allergy/AdvReac Type Severity Reaction Status Date / Time caffeine AdvReac Diarrhea Verified 04/14/18 08:12 Physical Exam Vitals: Vital Signs Temp Pulse Pulse Pulse Pulse Resp BP 04/14/18 08:56 64 04/14/18 08:40 64 04/14/18 08:00 97.9 F 62 18 04/14/18 04:00 97.1 F L 58 L 17 04/14/18 00:00 97.1 F L 48 L 17 04/13/18 20:01 57 L 04/13/18 20:00 97.1 F L 53 L 17 04/13/18 19:49 54 L 04/13/18 18:47 97 F L 68 65 46 L 18 04/13/18 17:28 46 L 18 136/63 04/13/18 16:19 52 L 04/13/18 16:12 38 L 18 164/84 04/13/18 15:25 55 L 18 140/67 04/13/18 13:39 98.8 F 62 18 137/59 BP BP BP Pulse Ox 04/14/18 08:56 04/14/18 08:40 04/14/18 08:00 141/61 99 04/14/18 04:00 125/50 99 04/14/18 00:00 136/46 100 04/13/18 20:01 04/13/18 20:00 157/72 99 04/13/18 19:49 04/13/18 18:47 113/93 126/83 127/62 97 04/13/18 17:28 100 04/13/18 16:19 04/13/18 16:12 99 04/13/18 15:25 97 04/13/18 13:39 96 Intake and Output 04/13/18 04/14/18 04/14/18 22:59 06:59 14:59 Intake Total 118 Output Total 100 225 Balance -100 -225 118 Intake: Oral 118 Output: Urine 100 225 Other: # Voids 1 # Bowel Movements 1 Weight 75.5 kg PHYSICAL EXAMINATION: GENERAL: 72-year-old gentleman in no acute distress at the time of my examination HEENT: Head is atraumatic, normocephalic. Laceration noted to the nose. Pupils equal, round. Sclera anicteric. Conjunctiva are clear. Mucous membranes of the mouth are moist. Neck is supple. There is no elevated jugular venous pressure. No carotid bruit is heard. HEART EXAMINATION: Heart S1, S2 normal. No murmur or gallop heard. CHEST EXAMINATION: Lungs reveal scattered coarse rhonchi and wheezing throughout. ABDOMEN: Soft, nontender. Bowel sounds are heard. No organomegaly noted. EXTREMITIES: 1+ peripheral pulses with no evidence of peripheral edema and no calf tenderness noted. NEUROLOGIC [patient is awake, alert , confused. Oriented times one. Results 04/14/18 05:40 04/14/18 05:40 Cardiac Enzymes 04/13/18 04/13/18 04/13/18 Range/Units 13:56 13:56 22:17 AST 31 (17-59) U/L CK-MB (CK-2) 1.3 1.7 (0.0-2.4) ng/mL Troponin I <0.012 <0.012 (0.000-0.034) ng/mL 04/14/18 04/14/18 Range/Units 05:40 05:40 AST 26 (17-59) U/L CK-MB (CK-2) 2.2 (0.0-2.4) ng/mL Troponin I <0.012 (0.000-0.034) ng/mL Coagulation 04/13/18 Range/Units 13:56 PT 13.1 H (9.0-12.0) sec APTT 28.8 (22.0-30.0) sec CBC 04/13/18 04/14/18 Range/Units 13:56 05:40 WBC 7.6 6.5 (3.8-10.6) k/uL RBC 4.19 L 3.89 L (4.30-5.90) m/uL Hgb 12.8 L 12.2 L (13.0-17.5) gm/dL Hct 40.5 37.7 L (39.0-53.0) % Plt Count 314 264 (150-450) k/uL Comprehensive Metabolic Panel 04/13/18 04/14/18 Range/Units 13:56 05:40 Sodium 139 138 (137-145) mmol/L Potassium 4.3 4.3 (3.5-5.1) mmol/L Chloride 107 107 (98-107) mmol/L Carbon Dioxide 27 25 (22-30) mmol/L BUN 16 16 (9-20) mg/dL Creatinine 1.08 0.90 (0.66-1.25) mg/dL Glucose 91 83 (74-99) mg/dL Calcium 8.9 8.7 (8.4-10.2) mg/dL AST 31 26 (17-59) U/L ALT 39 38 (21-72) U/L Alkaline Phosphatase 65 61 (38-126) U/L Total Protein 6.0 L 5.4 L (6.3-8.2) g/dL Albumin 3.3 L 2.9 L (3.5-5.0) g/dL Current Medications Generic Name Dose Route Start Last Admin Trade Name Freq PRN Reason Stop Dose Admin Acetaminophen 650 mg 04/13/18 18:04 04/13/18 23:09 Tylenol Tab PO 650 mg Q6HR PRN Administration Mild Pain or Fever > 100.5 Hydrocodone Bitart/Acetaminophen 1 each 04/13/18 18:07 04/14/18 08:10 [place] 10 PO 1 each TID PRN Administration Moderate Pain Albuterol/Ipratropium 3 ml 04/13/18 18:07 04/14/18 08:40 Duoneb 0.5 Mg-3 Mg/3 Ml Soln INHALATION 3 ml RT-QID PRN Administration Shortness Of Breath Aspirin 81 mg 04/14/18 09:00 04/14/18 07:58 Aspirin PO 81 mg DAILY ABDOULAYE Administration Atorvastatin Calcium 40 mg 04/14/18 09:00 04/14/18 07:58 Lipitor PO 40 mg DAILY ABDOULAYE Administration Budesonide/Formoterol Fumarate 2 puff 04/13/18 20:00 04/14/18 08:40 Symbicort 160-4.5 Mcg Inhaler INHALATION 2 puff RT-BID ABDOULAYE Administration Divalproex Sodium 500 mg 04/13/18 21:00 04/14/18 07:59 Depakote Er PO 500 mg BID ABDOULAYE Administration Donepezil HCl 20 mg 04/13/18 21:00 04/13/18 20:27 Aricept PO 20 mg HS ABDOULAYE Administration Escitalopram Oxalate 10 mg 04/14/18 09:00 04/14/18 07:58 Lexapro PO 10 mg DAILY ABDOULAYE Administration Famotidine 20 mg 04/13/18 21:00 04/14/18 07:58 Pepcid PO 20 mg BID ABDOULAYE Administration Furosemide 40 mg 04/14/18 09:00 04/14/18 07:59 Lasix PO 40 mg DAILY ABDOULAYE Administration Gabapentin 600 mg 04/13/18 22:00 04/14/18 07:58 Neurontin PO 600 mg TID ABDOULAYE Administration Montelukast Sodium 10 mg 04/14/18 09:00 04/14/18 07:58 Singulair PO 10 mg DAILY ABDOULAYE Administration Naloxone HCl 0.2 mg 04/13/18 18:04 Narcan IV Q2M PRN Opioid Reversal Oxybutynin Chloride 5 mg 04/13/18 21:00 04/14/18 07:59 Ditropan PO 5 mg BID ABDOULAYE Administration Pantoprazole Sodium 40 mg 04/14/18 07:30 04/14/18 06:30 Protonix PO Not Given AC-[id number] ABDOULAYE Primidone 100 mg 04/14/18 09:00 04/14/18 07:59 Mysoline PO 100 mg DAILY ABDOULAYE Administration Rivaroxaban 20 mg 04/14/18 09:00 04/14/18 07:58 Xarelto PO 20 mg DAILY ABDOULAYE Administration Ropinirole HCl 0.5 mg 04/13/18 22:00 04/14/18 07:58 Requip PO 0.5 mg TID ABDOULAYE Administration Intake and Output 04/13/18 04/14/18 04/14/18 22:59 06:59 14:59 Intake Total 118 Output Total 100 225 Balance -100 -225 118 Intake: Oral 118 Output: Urine 100 225 Other: # Voids 1 # Bowel Movements 1 Weight 75.5 kg 04/14/18 05:40 04/14/18 05:40 EKG Interpretations (text) EKG on arrival here showed a sinus bradycardia with first-degree AV block and occasional PVCs. Assessment and Plan Plan: Assessment and plan #1 fall, possible syncope. Rule out cardiac causes. He had admission showed sinus bradycardia with first-degree AV block and occasional PVCs. #2 advanced COPD on home O2 #3 dementia #4 history of hypertension, on Lopressor 12-1/2 mg by mouth twice a day at home #5 hyperlipidemia, on Lipitor #6 history of seizures #7 history of prior stroke #8 history of pulmonary embolism #9 Prior nicotine dependence, patient apparently quit smoking approximately 2 years ago. Plan We will hold the patient's Lopressor and continue to monitor for significant pauses or further bradycardia of significance. We will check a TSH level We will also check orthostatic heart rate and blood pressure every shift. Obtain an echocardiogram with Doppler study. Further recommendations to follow. DNP note has been reviewed, I agree with a documented findings and plan of care. Patient was seen and examined.
--- NOTE | 2018-04-14 12:45 | XR ---
EXAMINATION TYPE: XR chest 1V DATE OF EXAM: 04/14/2018 COMPARISON: Prior chest 08/10/2017, 03/03/2018, chest CT 08/06/2017 HISTORY: COPD TECHNIQUE: Single frontal view of the chest is obtained. FINDINGS: There is no focal air space opacity, pleural effusion, or pneumothorax seen. The cardiac silhouette size is within normal limits. Patient is rotated. There are overlying cardiac leads. Left hilum shows a similar appearance with some superior displacement, there is some retraction, there is apical pleural thickening on the left. The osseous structures are intact. IMPRESSION: Emphysema.
--- NOTE | 2018-04-14 12:48 | ECHOF ---
Referral Reason:bradycardia MEASUREMENTS -------- HEIGHT: 170.2 cm WEIGHT: 75.3 kg BP: 141/61 RVIDd: 3.3 cm (< 3.3) IVSd: 1.3 cm (0.6 - 1.1) LVIDd: 3.4 cm (3.9 - 5.3) LVPWd: 1.1 cm (0.6 - 1.1) IVSs: 1.4 cm LVIDs: 2.2 cm LVPWs: 1.3 cm LAESV Index (A-L): 21.65 ml/m Ao Diam: 3.3 cm (2.0 - 3.7) AV Cusp: 1.7 cm (1.5 - 2.6) LA Diam: 2.9 cm (2.7 - 3.8) MV E Robin: 0.79 m/s MV DecT: 182 ms MV A Robin: 0.75 m/s MV E/A Ratio: 1.05 AR PHT: 592 ms RAP: 5.00 mmHg RVSP: 36.91 mmHg FINDINGS -------- Sinus rhythm. Resting bradycardia (HR<60bpm). This was a technically adequate study. The left ventricular size is normal. There is mild concentric left ventricular hypertrophy. Overa ll left ventricular systolic function is normal with, an EF between 55 - 60 %. The right ventricle is mildly enlarged. Normal LA size by volume 22+/-6 ml/m2. RA appears enlarged. There is mild aortic valve sclerosis. There is mild aortic regurgitation. There is no evidence of aortic stenosis. Mild mitral annular calcification present. There is trace mitral regurgitation. No regurgitation noted There is mild pulmonary hypertension. The right ventricular systolic press ure, as measured by Doppler, is 36.91mmHg. The pulmonic valve was not well visualized. There is no pulmonic regurgitation present. The aortic root size is normal. Normal inferior vena cava with normal inspiratory collapse consistent with estimated right atrial pre ssure of 5 mmHg. There is no pericardial effusion. CONCLUSIONS -------- 1. Sinus rhythm. 2. Resting bradycardia (HR<60bpm). 3. This was a technically adequate study. 4. The left ventricular size is normal. 5. There is mild concentric left ventricular hypertrophy. 6. Overall left ventricular systolic function is normal with, an EF between 55 - 60 %. 7. The right ventricle is mildly enlarged. 8. Normal LA size by volume 22+/-6 ml/m2. 9. RA appears enlarged. 10. There is mild aortic valve sclerosis. 11. There is mild aortic regurgitation. 12. Mild mitral annular calcification present. 13. There is trace mitral regurgitation. 14. No regurgitation noted 15. There is mild pulmonary hypertension. 16. The pulmonic valve was not well visualized. 17. There is no pulmonic regurgitation present. 18. The aortic root size is normal. 19. There is no pericardial effusion. RAMP FLIGHT ATTENDANT: Jatin Hunt RDCS
[2018-04-14] MEDS: IBUPROFEN 600 MG TAB PO PRN ×2 (14:17→22:28)
--- NOTE | 2018-04-14 14:51 | P.CNPUL ---
History of Present Illness Consult date: 04/14/18 Reason for consult: COPD History of present illness: 72-year-old male patient with known history of COPD with an FEV1 of 49% of predicted, quit smoking approximately 2 years ago, not oxygen dependent and uses oxygen on and off during the day as needed, in addition to previous history of CVA, hypertension and hyperlipidemia, came in to the hospital after he felt dizzy and he fell on the ground and he had a episodes of syncope. He has a large laceration on his nose and forehead area and the stitches were applied to treat the laceration. The patient denies having any headache. No altered mentation. No seizure activity was noted. No focal neurological deficits. Nose changes in speech. Inherent to the hospital over the EKG showed sinus bradycardia with some occasional PVCs. Heart rate was in the mid 40s to low 50s. CAT scan of the head on the neck was done. The CAT scan of the head showed no acute abnormalities and CAT scan of the neck showed no evidence of an acute fracture or subluxation of the spine. The patient was on beta blockers and he was taken off the beta blockers for now. His heart rate is improved and currently is in the mid 60s. He is also on 3 L of oxygen by nasal cannula. He has some chronic congested cough. No significant sputum production. No hemoptysis. No pleurisy. Reviewed the blood work. His INR is at 1.4 and the patient is on long-term articulation with Xarelto regarding previous history of pulmonary embolism. The pulmonary embolism occurred back in July 2017. I ordered a chest x-ray this morning and the chest x-ray showed no acute abnormalities and is consistent with emphysema. He is also on the case. Based on previous echocardiogram, the patient is a preserved LV function with an ejection fraction of 55-60%. He has moderately severe pulmonary hypertension with a PA pressure 57 probably related to his chronic lung disease. Review of Systems A 12 point review of system was done and the positive findings are almost above history of present illness Past Medical History Past Medical History: Coronary Artery Disease (CAD), Heart Failure, COPD, CVA/ TIA, Dementia, GERD/Reflux, Hyperlipidemia, Hypertension, Memory Impairment, Myocardial Infarction ([place]), Osteoarthritis (OA), Pneumonia, Pulmonary Embolus ( [place]) Additional Past Medical History / Comment(s): COPD, previous history of pulmonary embolism maintained on anticoagulation with Xarelto, Dementia, diastolic congestive heart failure, hemorrhoids, small hiatal hernia, overactive bladder, chronic back pain, recovering alcoholic and he quit in August 2015 Last Myocardial Infarction Date:: unknown History of Any Multi-Drug Resistant Organisms: None Reported Past Surgical History: Appendectomy, Back Surgery Additional Past Surgical History / Comment(s): EGD with bx/colonoscopy with bx. Past Anesthesia/Blood Transfusion Reactions: No Reported Reaction Additional Past Anesthesia/Blood Transfusion Reaction / Comment(s): Pt has never received blood. Past Psychological History: Anxiety, Depression Additional Psychological History / Comment(s): Pt resides with his neri. He has a walker which he uses prn.home 02 He no longer drives. His daughter is his senior nuclear medicine technologist and drives him to [employer]. his legal guardain/ dpoa is, Rica Hess ([facility] ). Smoking Status: Former smoker Past Alcohol Use History: None Reported Additional Past Alcohol Use History / Comment(s): quit smoking August 2015, smoked for >50 yrs. Past alcohol abuse-quit drinking August 2015. Past Drug Use History: None Reported Additional Drug Use History / Comment(s): cocaine use in past-quit 4-5yrs ago.either 2012 or 2013 per pt. - Past Family History Father Family Medical History: Cancer Additional Family Medical History / Comment(s): Father had throat cancer. Mother Family Medical History: Cancer Additional Family Medical History / Comment(s): Mother had breast cancer. Medications and Allergies Home Medications Medication Instructions Recorded Confirmed Type Montelukast Sodium 10 mg PO DAILY 06/14/15 04/13/18 History Oxybutynin Chloride [Ditropan] 5 mg PO BID 06/14/15 04/13/18 History Albuterol Sulfate [Proair Hfa] 1 - 2 puff INHALATION RT-Q4H PRN 10/14/15 History Budesonide/Formoterol Fumarate 2 puff INHALATION RT-BID 10/14/15 04/13/18 History [Symbicort 160-4.5 Mcg Inhaler] Escitalopram [Lexapro] 10 mg PO DAILY 07/24/16 04/13/18 History Atorvastatin [Lipitor] 40 mg PO DAILY #30 tab 07/28/16 04/13/18 Rx Gabapentin 600 mg PO TID 06/14/17 04/13/18 History HYDROcodone/APAP 10-325MG [[place] 1 tab PO TID PRN 06/14/17 04/13/18 History 10-325] Primidone [Mysoline] 100 mg PO DAILY 06/14/17 04/13/18 History Aspirin 81 mg PO DAILY #0 chew 08/10/17 04/13/18 Rx Furosemide [Lasix] 40 mg PO DAILY #30 tab 08/10/17 04/13/18 Rx Albuterol Nebulized [Ventolin 2.5 mg INHALATION RT-QID PRN 04/13/18 04/13/18 History Nebulized] Divalproex Sodium [Depakote ER] 500 mg PO BID 04/13/18 04/13/18 History Donepezil [Aricept] 20 mg PO HS 04/13/18 04/13/18 History Ipratropium-Albuterol Nebulize 3 ml INHALATION RT-QID PRN 04/13/18 04/13/18 History [Duoneb 0.5 mg-3 mg/3 ml Soln] Metoprolol Tartrate [Lopressor] 12.5 mg PO BID 04/13/18 04/13/18 History Omeprazole 40 mg PO DAILY 04/13/18 04/13/18 History Ranitidine HCl [Zantac] 150 mg PO BID 04/13/18 04/13/18 History Rivaroxaban [Xarelto] 20 mg PO DAILY 04/13/18 04/13/18 History rOPINIRole HCL [Requip] 0.5 mg PO TID 04/13/18 04/13/18 History Allergies Allergy/AdvReac Type Severity Reaction Status Date / Time caffeine AdvReac Diarrhea Verified 04/14/18 08:12 Physical Exam Vitals: Vital Signs Temp Pulse Pulse Pulse Pulse Resp BP 04/14/18 12:00 82 88 65 16 04/14/18 11:51 60 04/14/18 11:38 60 04/14/18 08:56 64 04/14/18 08:40 64 04/14/18 08:00 97.9 F 62 18 04/14/18 04:00 97.1 F L 58 L 17 04/14/18 00:00 97.1 F L 48 L 17 04/13/18 20:01 57 L 08/22/18 20:00 97.1 F L 53 L 17 04/13/18 19:49 54 L 04/13/18 18:47 97 F L 68 65 46 L 18 04/13/18 17:28 46 L 18 136/63 04/13/18 16:19 52 L 04/13/18 16:12 38 L 18 164/84 04/13/18 15:25 55 L 18 140/67 BP BP BP Pulse Ox 04/14/18 12:00 113/61 99/38 116/45 95 04/14/18 11:51 04/14/18 11:38 04/14/18 08:56 04/14/18 08:40 04/14/18 08:00 141/61 99 04/14/18 04:00 125/50 99 04/14/18 00:00 136/46 100 04/13/18 20:01 04/13/18 20:00 157/72 99 04/13/18 19:49 04/13/18 18:47 113/93 126/83 127/62 97 04/13/18 17:28 100 04/13/18 16:19 04/13/18 16:12 99 04/13/18 15:25 97 Intake and Output 04/13/18 04/14/18 04/14/18 22:59 06:59 14:59 Intake Total 1236 Output Total 100 225 600 Balance -100 -225 636 Intake: Intake, IV Titration 1000 Amount Sodium Chloride 0.9% 1, 1000 000 ml @ 75 mls/hr IV . [id number] ONE Rx#:[id number] Oral 236 Output: Urine 100 225 600 Other: # Voids 1 3 # Bowel Movements 1 Weight 75.5 kg Appearance the patient is, comfortable active distress Head exam was generally normal. There was no scleral icterus or corneal arcus. Mucous membranes were moist. The patient laceration over the forehead and the nose which superficial and has been appropriately treated Neck was supple and without jugular venous distension, thyromegaly, or carotid bruits. Carotids were easily palpable bilaterally. There was no adenopathy. Lungs are diminished bilaterally with scattered expiratory wheezes throughout the lung hernandes and scattered rhonchi Heart sounds are regular, positive S1-S2 and there is no significant murmurs appreciated. Abdominal exam revealed normal bowel sounds. The abdomen was soft, non-tender, and without masses, organomegaly, or appreciable enlargement of the abdominal aorta. Examination of the extremities revealed easily palpable radial, femoral and pedal pulses. There was no cyanosis, clubbing or edema. Examination of the skin revealed no evidence of significant rashes, suspicious appearing nevi or other concerning lesions. Neurologically the patient is awake and alert and there is no focal neurological deficit at this point in time. Results - Laboratory Findings CBC and BMP: 04/14/18 05:40 04/14/18 05:40 PT/INR, D-dimer PT 13.1 sec (9.0-12.0) H 04/13/18 13:56 INR 1.4 (<1.2) H 04/13/18 13:56 Abnormal lab findings: Abnormal Labs 04/13/18 04/13/18 04/13/18 13:56 13:56 13:56 RBC 4.19 L Hgb 12.8 L Hct PT 13.1 H INR 1.4 H Total Protein 6.0 L Albumin 3.3 L 04/14/18 04/14/18 05:40 05:40 RBC 3.89 L Hgb 12.2 L Hct 37.7 L PT INR Total Protein 5.4 L Albumin 2.9 L - Diagnostic Findings Chest x-ray: image reviewed Assessment and Plan Plan: Assessment 1 COPD moderate to severe with an FEV1 of 49% of predicted, currently inactive in stable and the chest x-rays when necessary acute pulmonary infiltrates or pneumonia 2 syncope probably related to bradycardia arrhythmia. The patient had sinus bradycardia with a first-degree AV block and occasional PVCs on EKG at time of admission. He was taken off the beta blockers. Hemodynamically stable at this point in time. Cardiology is on the case. 3 history of pulmonary embolism maintained on Xarelto on outpatient basis 4 dementia 5 hypertension 6 hyperlipidemia 7 previous history of CVA 8 mild to moderate pulmonary hypertension, secondary to chronic lung disease. 11 to ejection fraction within normal limits. 9 chronic back pain 10 recovering alcoholic Plan Will stop the metoprolol for now monitor the cardiac rhythm and rate. Continue anticoagulation with Xarelto. In terms of his COPD, the patient has been maintained on Symbicort and DuoNeb nebulized units [id number] and this will be resumed. I'll patient medication be ordered resume. We'll continue to follow. Awaiting further accommodation from cardiology regarding the syncope. Meanwhile, the CAT scan of the brain and the cervical spine showed no acute abnormalities. We'll continue to follow.
[2018-04-14] MEDS: DONEPEZIL 10 MG TAB PO SCH (20:21)
[2018-04-15] MEDS: HYDROcodone/APAP 10-325MG 1 EACH TAB PO PRN ×3 (03:55→20:27)
[2018-04-15] MEDS: PANTOPRAZOLE 40 MG TABLET PO SCH (06:14)
[2018-04-15] MEDS: GABAPENTIN 300 MG CAP PO SCH ×3 (08:16→21:04)
[2018-04-15] MEDS: RIVAROXABAN 20 MG TAB PO SCH (08:17)
[2018-04-15] MEDS: ESCITALOPRAM 10 MG TAB PO SCH (08:17)
[2018-04-15] MEDS: PRIMIDONE 50 MG TAB PO SCH (08:17)
[2018-04-15] MEDS: DIVALPROEX ER 500 MG TAB.ER.24H PO SCH ×2 (08:17→20:27)
[2018-04-15] MEDS: ASPIRIN 81 MG PO SCH (08:17)
[2018-04-15] MEDS: FAMOTIDINE 20 MG TAB PO SCH ×2 (08:17→20:27)
[2018-04-15] MEDS: OXYBUTYNIN CHLORIDE 5 MG TAB PO SCH ×2 (08:17→20:27)
[2018-04-15] MEDS: FUROSEMIDE 40 MG TAB PO SCH (08:17)
[2018-04-15] MEDS: ATORVASTATIN 40 MG TAB PO SCH (08:17)
[2018-04-15] MEDS: MONTELUKAST 10 MG TAB PO SCH (08:18)
[2018-04-15] MEDS: IBUPROFEN 600 MG TAB PO PRN (08:22)
[2018-04-15] MEDS: IPRATROPIUM-ALBUTEROL 3 ML NEB INHALATION PRN ×3 (08:38→20:41)
[2018-04-15] MEDS: SYMBICORT 160-4.5 MCG INHALER INHALATION SCH ×2 (08:38→20:43)
--- NOTE | 2018-04-15 10:04 | P.PN ---
Subjective Progress Note Date: 04/15/18 Principal diagnosis: Dizziness and fall Patient is still having shortness of breath and cough productive of white phlegm. No fevers or chills. No chest pain. Objective - Vital Signs Vital signs: Vital Signs Temp 97.8 F 04/15/18 08:34 Pulse 80 04/15/18 08:58 Resp 16 04/15/18 08:34 BP 130/54 04/15/18 08:34 Pulse Ox 99 04/15/18 08:34 Intake & Output 04/14/18 04/15/18 04/15/18 18:59 06:59 18:59 Intake Total 1472 240 Output Total 780 325 Balance 692 -325 240 Weight 75 kg Intake: Intake, IV Titration 1000 Amount Sodium Chloride 0.9% 1, 1000 000 ml @ 75 mls/hr IV . [id number] ONE Rx#:[id number] Oral 472 240 Output: Urine 780 325 Other: Voiding Method Urinal # Voids 3 - Exam Constitutional: No acute distress, conversant, pleasant Eyes:Anicteric sclerae, moist conjunctiva, no lid-lag, PERRLA, ENMT: Bloody nose, oropharynx clear, no erythema, exudates Neck: Supple, FROM, no masses, or JVD, No carotid bruits, No thyromegaly Lungs: Clear to auscultation, Clear to percussion, Normal respiratory effort, no accessory muscle use Cardiovascular: RRR, No murmurs, gallops, or rubs, No peripheral edema Abdominal: Soft, Nontender, no guarding, rebound or rigidity, Normoactive bowel sounds, No hepatomegaly, No splenomegaly, No palpable mass Skin: Normal temperature, tone, texture, turgor, no induration, No subcutaneous nodules, No rash, lesions, No ulcers Extremities: Right knee bruise, no digital cyanosis, No clubbing, Pedal pulses intact and symmetrical, Radial pulses intact and symmetrical, No calf tenderness Psychiatric: Alert and oriented to person, place and time, appropriate affect, intact judgement Neuro: Muscles Strength 5/5 in all 4 extremities, Sensation to light touch grossly present throughout, Cranial nerves II-XII grossly intact, no focal sensory deficits - Labs CBC & Chem 7: 04/14/18 05:40 04/14/18 05:40 Assessment and Plan Plan: Severe bradycardia Resolved Discussed with cardiology Monitor on telemetry Chest pain/ with history of CAD and [place] ACS ruled out History of COPD Stable No exacerbation Seen by pulmonary Continue home inhalers and nebulizers. General weakness PT evaluation Chronic Dementia, history of CVA, history of PE, GERD/Reflux, Hyperlipidemia, Hypertension, Osteoarthritis (OA), diastolic congestive heart failure, overactive bladder, chronic back pain, history of smoking, quit 2 years ago, recovering alcoholic and he quit in August 2015: All reviewed, stable, renew medications DVT prophylaxis Already on anticoagulation, we'll continue
--- NOTE | 2018-04-15 12:53 | CDI ---
Last Revision, July 2017 Documentation Clarification Form Date: 04/15/2018 12:44:18 PM From: Anika Briones [facility], CCDS Admit Date: 04/14/2018 8:27:00 AM Patient Name: Ricki Hess Visit Number: [id number] Discharge Date: ATTENTION: The Clinical Documentation Specialists (CDI) and [facility] Coding Staff appreciate your assistance in clarifying documentation. Please respond to the clarification below the line at the bottom and electronically sign. The CDI & [facility] Coding staff will review the response and follow-up if needed. Please note: Queries are made part of the Legal Health Record. If you have any questions, please contact the author of this message via ITS. Yves Weston MD: 72 yo male, presented to the ER after falling in the hospital parking lot. Noted to have bradycardia & a 1st degree AV block and has a laceration and fracture of his nose. Per the pulmonary consult the patient has "COPD moderate to severe with an FEV1 of 49% of predicted, currently inactive in stable...". Per the H/P the patient is supposed to wear O2 but was not on the day of admission. History/Risk Factors: CVA, Dementia, PE, GERD, Hyperlipidemia, Hypertension, Chronic Diastolic CHF & former smoker. Clinical Indicators: Vital signs: P 62 - 55*, PO 96 3Lnc Treatment: Albuterol INH, Symbicort INH, IV Kefzol, O2 2Lnc In your professional opinion, can you please clarify the patient's respiratory status: Chronic respiratory failure: o Yes o No Specificity if known: o With hypercapnia? o With hypoxia? o Other Diagnosis, please specify o Unable to determine Please continue to document in your progress notes and discharge summary in order to capture severity of illness and risk of mortality. Include clinical findings that support your diagnosis. Chronic hypoxic respiratory failure MTDD
--- NOTE | 2018-04-15 13:25 | P.PN ---
Subjective Progress Note Date: 04/15/18 Principal diagnosis: Syncope 72-year-old male patient with known history of COPD with an FEV1 of 49% of predicted, quit smoking approximately 2 years ago, not oxygen dependent and uses oxygen on and off during the day as needed, in addition to previous history of CVA, hypertension and hyperlipidemia, came in to the hospital after he felt dizzy and he fell on the ground and he had a episodes of syncope. He has a large laceration on his nose and forehead area and the stitches were applied to treat the laceration. The patient denies having any headache. No altered mentation. No seizure activity was noted. No focal neurological deficits. Nose changes in speech. Inherent to the hospital over the EKG showed sinus bradycardia with some occasional PVCs. Heart rate was in the mid 40s to low 50s. CAT scan of the head on the neck was done. The CAT scan of the head showed no acute abnormalities and CAT scan of the neck showed no evidence of an acute fracture or subluxation of the spine. The patient was on beta blockers and he was taken off the beta blockers for now. His heart rate is improved and currently is in the mid 60s. He is also on 3 L of oxygen by nasal cannula. He has some chronic congested cough. No significant sputum production. No hemoptysis. No pleurisy. Reviewed the blood work. His INR is at 1.4 and the patient is on long-term articulation with Xarelto regarding previous history of pulmonary embolism. The pulmonary embolism occurred back in July 2017. I ordered a chest x-ray this morning and the chest x-ray showed no acute abnormalities and is consistent with emphysema. He is also on the case. Based on previous echocardiogram, the patient is a preserved LV function with an ejection fraction of 55-60%. He has moderately severe pulmonary hypertension with a PA pressure 57 probably related to his chronic lung disease. The patient is seen again today 04/15/2018 in follow-up on the selective care unit. He is currently resting quite comfortably in bed. He is awake and alert in no acute distress. No further syncopal episodes. He currently denies any shortness of breath, cough or congestion. He is maintaining good O2 saturations in the high 90s on 3 L/m nasal cannula. His heart rate has remained in the 70s and 80s throughout the last 24 hours. Objective - Vital Signs Vital signs: Vital Signs Temp 97.8 F 04/15/18 08:34 Pulse 80 04/15/18 08:58 Resp 16 04/15/18 08:34 BP 110/59 04/15/18 11:27 Pulse Ox 99 04/15/18 08:34 Intake & Output 04/14/18 04/15/18 04/15/18 18:59 06:59 18:59 Intake Total 1472 240 Output Total 780 325 Balance 692 -325 240 Weight 75 kg Intake: Intake, IV Titration 1000 Amount Sodium Chloride 0.9% 1, 1000 000 ml @ 75 mls/hr IV . [id number] ONE Rx#:[id number] Oral 472 240 Output: Urine 780 325 Other: Voiding Method Urinal Urinal # Voids 3 - Exam Appearance the patient is, comfortable active distress Head exam was generally normal. There was no scleral icterus or corneal arcus. Mucous membranes were moist. The patient laceration over the forehead and the nose which superficial and has been appropriately treated area and some bruising around the left orbit Neck was supple and without jugular venous distension, thyromegaly, or carotid bruits. Carotids were easily palpable bilaterally. There was no adenopathy. Lungs are diminished bilaterally with scattered expiratory wheezes throughout the lung hernandes and scattered rhonchi Heart sounds are regular, positive S1-S2 and there is no significant murmurs appreciated. Abdominal exam revealed normal bowel sounds. The abdomen was soft, non-tender, and without masses, organomegaly, or appreciable enlargement of the abdominal aorta. Examination of the extremities revealed easily palpable radial, femoral and pedal pulses. There was no cyanosis, clubbing or edema. Examination of the skin revealed no evidence of significant rashes, suspicious appearing nevi or other concerning lesions. Neurologically the patient is awake and alert and there is no focal neurological deficit at this point in time. - Labs CBC & Chem 7: 04/14/18 05:40 04/14/18 05:40 Assessment and Plan Assessment: Assessment 1 Chronic hypoxic respiratory failure secondary to COPD moderate to severe with an FEV1 of 49% of predicted, currently inactive in stable and the chest x-rays demonstrate no acute pulmonary infiltrates or pneumonia 2 syncope probably related to bradycardia arrhythmia. The patient had sinus bradycardia with a first-degree AV block and occasional PVCs on EKG at time of admission. He was taken off the beta blockers. Hemodynamically stable at this point in time. Cardiology is on the case. 3 history of pulmonary embolism maintained on Xarelto on outpatient basis 4 dementia 5 hypertension 6 hyperlipidemia 7 previous history of CVA 8 mild to moderate pulmonary hypertension, secondary to chronic lung disease. 11 to ejection fraction within normal limits. 9 chronic back pain 10 recovering alcoholic Plan The patient was seen and evaluated by Dr. Stovall. He is stable from the pulmonary standpoint. No further syncopal episodes. His beta blockers have been held. He is maintaining heart rates in the 70s and 80s. We will increase his activity as tolerated. We'll continue to follow. I, the cosigning physician, performed a history & physical examination of the patient. Lungs sounds are clear. Diminished. Maintaining good O2 saturations in the 90s on 3 L/m per nasal cannula. I discussed the assessment and plan of care with my nurse practitioner, Praveena Easton. I attest to the above note as dictated by her.
--- NOTE | 2018-04-15 13:36 | P.PN ---
Subjective Progress Note Date: 04/15/18 This is a pleasant 72-year-old gentleman with history of dementia, his daughter's legal guardian, and is now at the bedside therefore HPI and past medical history was obtained from the chart. He has a history of severe COPD with home oxygen use, prior CVA, hypertension, hyperlipidemia, history of smoking and apparently quit about 2 years ago. Patient apparently was at his doctor's office in the parking lot and became extremely dizzy and fell to the ground. It is unclear as to whether or not the patient had a complete syncopal episode or not. His large laceration in his nose area for which he required stitches. According to the daughter the patient had been having episodes of dizziness and occasional falls at home. EKG on arrival showed sinus bradycardia with nonspecific ST-T wave changes and occasional PVCs. Orthostatic blood pressures showed a supine systolic blood pressure 116 and a standing blood pressure of 99 with a supine heart rate of 65 and a standing heart rate of 88. Echocardiogram with Doppler showed an ejection fraction of 55 -60% and a mild MR. He is currently on Lasix 40 mg by mouth daily. Upon examination, patient is resting comfortably in bed. Complains of being tired but denies current complaints of dizziness or lightheadedness. Objective - Vital Signs Vital signs: Vital Signs Temp 97.8 F 04/15/18 08:34 Pulse 80 04/15/18 08:58 Resp 16 04/15/18 08:34 BP 130/54 04/15/18 08:34 Pulse Ox 99 04/15/18 08:34 Intake & Output 04/14/18 04/15/18 04/15/18 18:59 06:59 18:59 Intake Total 1472 240 Output Total 780 325 Balance 692 -325 240 Weight 75 kg Intake: Intake, IV Titration 1000 Amount Sodium Chloride 0.9% 1, 1000 000 ml @ 75 mls/hr IV . [id number] ONE Rx#:[id number] Oral 472 240 Output: Urine 780 325 Other: Voiding Method Urinal Urinal # Voids 3 - Exam PHYSICAL EXAMINATION: HEENT: [Head is atraumatic, normocephalic. Pupils equal, round. Laceration noted to the nose. Neck is supple. There is no elevated jugular venous pressure.] HEART EXAMINATION: [Heart sounds regular, S1 and S2 normal. No murmur or gallop heard.] CHEST EXAMINATION:[ Lungs reveal diminished air entry throughout. No chest wall tenderness is noted on palpation or with deep breathing.] ABDOMEN: [ Soft, nontender. Bowel sounds are heard. No organomegaly noted]. EXTREMITIES:[ 1+ peripheral pulses with no evidence of peripheral edema and no calf tenderness noted]. NEUROLOGIC [patient is awake, alert, confused, oriented 1.] . - Labs CBC & Chem 7: 04/14/18 05:40 04/14/18 05:40 Assessment and Plan Assessment: #1 fall, possible syncope, evidence of orthostatic hypotension #2 advanced COPD, on home O2 #3 dementia #4 history of hypertension #5 hyperlipidemia #6 history of seizures #7 history of CVA Plan: From cardiology perspective, we will change Lasix to 20 mg by mouth twice a day. Continue to follow orthostatic vital signs. Further recommendations to follow. ORDER ANALYST note has been reviewed, I agree with a documented findings and plan of care. Patient was seen and examined.
[2018-04-15 20:25] VITALS: RESP 18
[2018-04-15] MEDS: DONEPEZIL 10 MG TAB PO SCH (20:28)
[2018-04-16] MEDS: ACETAMINOPHEN TAB 325 MG TAB PO PRN (04:11)
[2018-04-16] MEDS: PANTOPRAZOLE 40 MG TABLET PO SCH (06:59)
[2018-04-16] MEDS: SYMBICORT 160-4.5 MCG INHALER INHALATION SCH (07:45)
[2018-04-16] MEDS: OXYBUTYNIN CHLORIDE 5 MG TAB PO SCH (09:21)
[2018-04-16] MEDS: PRIMIDONE 50 MG TAB PO SCH (09:21)
[2018-04-16] MEDS: DIVALPROEX ER 500 MG TAB.ER.24H PO SCH (09:21)
[2018-04-16] MEDS: FUROSEMIDE 20 MG TAB PO SCH ×2 (09:21→14:36)
[2018-04-16] MEDS: FAMOTIDINE 20 MG TAB PO SCH (09:21)
[2018-04-16] MEDS: ASPIRIN 81 MG PO SCH (09:22)
[2018-04-16] MEDS: RIVAROXABAN 20 MG TAB PO SCH (09:22)
[2018-04-16] MEDS: ATORVASTATIN 40 MG TAB PO SCH (09:22)
[2018-04-16] MEDS: MONTELUKAST 10 MG TAB PO SCH (09:22)
[2018-04-16] MEDS: GABAPENTIN 300 MG CAP PO SCH ×2 (09:22→14:36)
[2018-04-16] MEDS: ESCITALOPRAM 10 MG TAB PO SCH (09:23)
[2018-04-16 10:30] VITALS: TEMP 97.8
[2018-04-16] MEDS: HYDROcodone/APAP 10-325MG 1 EACH TAB PO PRN (10:40)
[2018-04-16 11:40] VITALS: BP 119/84
[2018-04-16] MEDS: IPRATROPIUM-ALBUTEROL 3 ML NEB INHALATION PRN (12:52)
[2018-04-16 13:03] VITALS: PULSE 73
--- NOTE | 2018-04-17 22:47 | DS ---
DISCHARGE SUMMARY DATE OF ADMISSION: 04/13/2018. DATE OF DISCHARGE: 04/16/2017. FINAL DIAGNOSES: 1. Syncope secondary to bradycardia secondary to beta jane. 2. Chronic hypoxic respiratory failure due to underlying chronic obstructive pulmonary disease. 3. Chronic obstructive pulmonary disease in an ex-smoker. 4. Chronic pulmonary embolism, chronically on Xarelto. 5. Mild cognitive impairment secondary to Alzheimer dementia. 6. Essential hypertension. 7. Hyperlipidemia. 8. Secondary pulmonary hypertension secondary to chronic obstructive pulmonary disease. HOSPITAL COURSE: This patient presented with syncope, found to be bradycardic. Beta jane was discontinued. Heart rate came up. The 2D echocardiogram showed preserved LV function. The patient had a superficial laceration on the nose, treated with topical antibiotic given. On the day of discharge, care was discussed with the patient. He is doing much better. Uses oxygen at home. No new issues. PHYSICAL EXAMINATION: LUNGS: Decreased breath sounds. CARDIOVASCULAR: 1st and 2nd sounds normal. DISCUSSION AND DISCHARGE PLANNING: More than 35 minutes. CONSULTATION: Dr. Stovall from Pulmonary, Dr. Foster from Cardiology. DISCHARGE MEDICATIONS: 1. Singulair 10 mg a day. 2. Ditropan 5 mg p.o. b.i.d. 3. ProAir 1 to 2 puffs every 4 p.r.n. 4. Symbicort 160/4.5, two puffs b.i.d. 5. Lexapro 10 mg p.o. daily. 6. Lipitor 40 mg p.o. daily. 7. Neurontin 600 mg p.o. t.i.d. 8. [place] 10 one tablet p.o. t.i.d. p.r.n. 9. Primidone 100 mg p.o. daily. 10.Aspirin 81 mg p.o. daily. 11.Ventolin 2.5 q.i.d. p.r.n. 12.Depakote ER 500 mg b.i.d. 13.Aricept 20 mg at bedtime. 14.DuoNeb q.i.d. p.r.n. 15.Omeprazole 40 mg p.o. daily. 16.Zantac 150 mg p.o. b.i.d. 17.Xarelto 20 mg p.o. daily. 18.Requip 0.5 mg p.o. t.i.d. 19.Bacitracin ointment topical b.i.d. to the nose. 20.Lasix 20 mg p.o. b.i.d. FOLLOWUP: 1. Cardiology in [address] Errol Henderson in [place] in 3 days. Home oxygen to continue. MMODL / IJN: [id number] /
== END 2018-04-16 14:50 | disposition home or self-care (01) | DRG 309 ==
LOC: EC 13:35 → UNDOADMOB 15:29 → 3OBS 15:29 → 6SEL 16:40 → OBSVTOIN 04-14 08:27 → INTOOBSV 04-14 08:27 → UNDODISIN 04-16 14:50
PROVIDERS: ADMIT Hospitalist; ATTEND Hospitalist
DX: R00.1 Bradycardia, unspecified (principal); S02.2XXB Fracture of nasal bones, initial encounter for open fracture; I27.82 Chronic pulmonary embolism; I50.32 Chronic diastolic (congestive) heart failure; J96.11 Chronic respiratory failure with hypoxia; E78.5 Hyperlipidemia, unspecified; F02.80 Dementia in other diseases classified elsewhere, unspecified severity, without behavioral disturbance, psychotic disturbance, mood disturbance, and anxiety; F10.21 Alcohol dependence, in remission; F32.9 Major depressive disorder, single episode, unspecified; F41.9 Anxiety disorder, unspecified; G30.9 Alzheimer's disease, unspecified; G89.29 Other chronic pain; I11.0 Hypertensive heart disease with heart failure; I25.10 Atherosclerotic heart disease of native coronary artery without angina pectoris; I25.2 Old myocardial infarction; I27.29 Other secondary pulmonary hypertension; I44.0 Atrioventricular block, first degree; J44.9 Chronic obstructive pulmonary disease, unspecified; K21.9 Gastro-esophageal reflux disease without esophagitis; N32.81 Overactive bladder; K44.9 Diaphragmatic hernia without obstruction or gangrene; T44.7X5A Adverse effect of beta-adrenoreceptor antagonists, initial encounter; W19.XXXA Unspecified fall, initial encounter; Z79.01 Long term (current) use of anticoagulants; Z79.51 Long term (current) use of inhaled steroids; Z79.82 Long term (current) use of aspirin; Z79.899 Other long term (current) drug therapy; Z80.3 Family history of malignant neoplasm of breast; Z80.8 Family history of malignant neoplasm of other organs or systems; Z86.73 Personal history of transient ischemic attack (TIA), and cerebral infarction without residual deficits; Z87.891 Personal history of nicotine dependence; Z99.81 Dependence on supplemental oxygen; Z87.01 Personal history of pneumonia (recurrent); M54.9 Dorsalgia, unspecified; Z88.8 Allergy status to other drugs, medicaments and biological substances; F14.11 Cocaine abuse, in remission
CPT/HCPCS: 12011; 36415; 70450; 71045; 72125; 80053; 82550; 82553; 83735; 84100; 84443; 84484; 85025; 85610; 85730; 90471; 90715; 93005; 93306; 94640; 94760; 96361; 96374; 99285

== ENCOUNTER 2018-12-29 10:38 | Inpatient (IN) | payer MEDICARE ==
[2018-12-29] MEDS ORDERED: methylPREDNISolone SOD SUCCI 125 MG/2 ML VIAL IV STA (10:42)
[2018-12-29] MEDS ORDERED: SODIUM CHLORIDE 0.9% 1,000 ML IV STA (10:42)
--- NOTE | 2018-12-29 11:17 | XR ---
EXAMINATION TYPE: XR chest 2V DATE OF EXAM: 12/29/2018 COMPARISON: Chest x-ray April 14, 2018 HISTORY: History of COPD with difficulty breathing and wet cough. TECHNIQUE: Frontal and lateral views of the chest are obtained. FINDINGS: There is chronic signal changes elevated left hemidiaphragm redemonstrated. There is no ne w suspicious focal air space opacity, pleural effusion, or pneumothorax seen. The cardiac silhouette size is within normal limits with atherosclerotic change in aortic knob. The osseous structures ar e intact. IMPRESSION: Chronic changes without acute pulmonary process.
[2018-12-29 11:25] LABS: Albumin 3.9 g/dL (3.5-5.0); Calcium 9.5 mg/dL (8.4-10.2); Magnesium 2.2 mg/dL (1.6-2.3); Total Bilirubin 0.5 mg/dL (0.2-1.3); Total Protein 6.8 g/dL (6.3-8.2)
[2018-12-29 11:30] LABS: Basophils # (A) 0.1 k/uL (0-0.2); Basophils % (A) 1 %; Eosinophils # (A) 0.4 k/uL (0-0.7); Eosinophils % (A) 4 %; HGB 11.8 gm/dL (13.0-17.5); Lymphocytes # (A) 1.7 k/uL (1.0-4.8); Lymphocytes % (A) 19 %; MCHC 32.9 g/dL (31.0-37.0); MCV 94.2 fL (80.0-100.0); Mean Platelet Volume 7.1; Monocytes # (A) 0.7 k/uL (0-1.0); Monocytes % (A) 8 %; Neutrophils % (A) 65 %; Platelet Count 260 k/uL (150-450); RBC 3.82 m/uL (4.30-5.90); RDW 14.1 % (11.5-15.5); WBC 9.2 k/uL (3.8-10.6)
--- NOTE | 2018-12-29 11:47 | XR ---
EXAMINATION TYPE: XR ankle complete bilateral DATE OF EXAM: 12/29/2018 CLINICAL HISTORY: Pain and swelling. TECHNIQUE: Frontal, lateral and oblique images of the bilateral ankles are obtained. COMPARISON: None. FINDINGS: There is no acute fracture/dislocation evident in either ankle. Demineralization is presen t. The ankle mortise appears within normal limits bilaterally. Vascular calcification is noted bilat erally. IMPRESSION: As above
[2018-12-29 11:48] LABS: INR 1.1 (<1.2); Partial Thromboplastin Time 25.5 sec (22.0-30.0); Prothrombin Time 11.1 sec (9.0-12.0)
[2018-12-29] MEDS ORDERED: IPRATROPIUM-ALBUTEROL 3 ML NEB INHALATION STA (12:37)
--- NOTE | 2018-12-29 12:50 | ED ---
SOB HPI - General Chief Complaint: Shortness of Breath Stated Complaint: JEB Time Seen by Provider: 12/29/18 10:38 Source: patient, family, EMS, RN notes reviewed, old records reviewed Mode of arrival: EMS Limitations: no limitations - History of Present Illness Initial Comments: This is a 72-year-old male with a history of COPD and multiple medical problems who presents by EMS with complaints of shortness of breath also generalized weakness frequent falls. Her family patient's been short of breath last several days resistant to coming to the hospital or to see his doctor. He denies any fevers chills or sweats he has had decreased oral intake. He's not able ambulate or weight-bear by himself he does complain of bilateral ankle pain. No other modifying factors at this time. MD Complaint: shortness of breath - Related Data Home Medications Medication Instructions Recorded Confirmed Montelukast Sodium 10 mg PO DAILY 06/14/15 12/29/18 Oxybutynin Chloride [Ditropan] 5 mg PO BID 06/14/15 12/29/18 Albuterol Sulfate [Proair Hfa] 1 - 2 puff INHALATION RT-Q4H PRN 10/14/15 9 Budesonide/Formoterol Fumarate 2 puff INHALATION RT-BID 10/14/15 12/29/18 [Symbicort 160-4.5 Mcg Inhaler] Escitalopram [Lexapro] 10 mg PO DAILY 07/24/16 12/29/18 Gabapentin 600 mg PO TID 06/14/17 12/29/18 Primidone [Mysoline] 100 mg PO DAILY 06/14/17 12/29/18 Albuterol Nebulized [Ventolin 2.5 mg INHALATION RT-QID PRN 04/13/18 12/29/18 Nebulized] Divalproex Sodium [Depakote ER] 500 mg PO BID 04/13/18 12/29/18 Donepezil [Aricept] 20 mg PO HS 04/13/18 12/29/18 Ipratropium-Albuterol Nebulize 3 ml INHALATION RT-QID PRN 04/13/18 12/29/18 [Duoneb 0.5 mg-3 mg/3 ml Soln] Omeprazole 40 mg PO DAILY 04/13/18 12/29/18 Ranitidine HCl [Zantac] 150 mg PO BID 04/13/18 12/29/18 Rivaroxaban [Xarelto] 20 mg PO DAILY 04/13/18 12/29/18 Furosemide [Lasix] 40 mg PO DAILY 12/29/18 12/29/18 oxyCODONE-APAP 10-325MG [Percocet 1 tab PO AC-TID 12/29/18 12/29/18 10-325 mg] rOPINIRole HCL [Requip] 1 mg PO TID 12/29/18 12/29/18 Previous Rx's Medication Instructions Recorded Atorvastatin [Lipitor] 40 mg PO DAILY #30 tab 07/28/16 Aspirin 81 mg PO DAILY #0 chew 08/10/17 Allergies Allergy/AdvReac Type Severity Reaction Status Date / Time caffeine AdvReac Diarrhea Verified 12/29/18 10:56 Review of Systems ROS Statement: Those systems with pertinent positive or pertinent negative responses have been documented in the HPI. ROS Other: All systems not noted in ROS Statement are negative. Past Medical History Past Medical History: Coronary Artery Disease (CAD), Heart Failure, COPD, CVA/TIA, Dementia, GERD/Reflux, Hyperlipidemia, Hypertension, Memory Impairment, Myocardial Infarction (LA), Osteoarthritis (OA), Pneumonia, Pulmonary Embolus (PE) Additional Past Medical History / Comment(s): COPD, previous history of pulmonary embolism maintained on anticoagulation with Xarelto, Dementia, diastolic congestive heart failure, hemorrhoids, small hiatal hernia, overactive bladder, chronic back pain, recovering alcoholic and he quit in August 2015 Last Myocardial Infarction Date:: unknown History of Any Multi-Drug Resistant Organisms: None Reported Past Surgical History: Appendectomy, Back Surgery Additional Past Surgical History / Comment(s): EGD with bx/colonoscopy with bx. Past Anesthesia/Blood Transfusion Reactions: No Reported Reaction Additional Past Anesthesia/Blood Transfusion Reaction / Comment(s): Pt has never received blood. Past Psychological History: Anxiety, Depression Smoking Status: Former smoker Past Alcohol Use History: None Reported Past Drug Use History: None Reported - Past Family History Father Family Medical History: Cancer Additional Family Medical History / Comment(s): Father had throat cancer. Mother Family Medical History: Cancer Additional Family Medical History / Comment(s): Mother had breast cancer. General Exam - General Exam Comments Initial Comments: This is a well-developed well-nourished awake alert but lethargic male Limitations: no limitations General appearance: alert, lethargic, in distress Head exam: Present: atraumatic, normocephalic, normal inspection Eye exam: Present: normal appearance, PERRL, EOMI. Absent: scleral icterus, conjunctival injection, periorbital swelling ENT exam: Present: mucous membranes dry Neck exam: Present: normal inspection, full ROM, other (No stridor JVD or bruits). Absent: tenderness, meningismus, lymphadenopathy Respiratory exam: Present: normal lung sounds bilaterally, wheezes, accessory muscle use, decreased breath sounds. Absent: respiratory distress, rales, rhonchi, stridor Cardiovascular Exam: Present: regular rate, normal rhythm, normal heart sounds. Absent: systolic murmur, diastolic murmur, rubs, gallop, clicks GI/Abdominal exam: Present: soft, normal bowel sounds. Absent: distended, tenderness, guarding, rebound, rigid Extremities exam: Present: full ROM, normal capillary refill, other (Skin abrasions with dressing is applied both upper extremities. There is tenderness palpation over both ankles with no obvious deformity. No foot tenderness.). Absent: tenderness, pedal edema, joint swelling, calf tenderness Back exam: Present: normal inspection Neurological exam: Present: alert, oriented X3, CN II-XII intact Psychiatric exam: Present: normal affect, normal mood Skin exam: Present: warm, dry, intact, normal color. Absent: rash Course Vital Signs 12/29/18 12/29/18 12/29/18 10:53 10:56 11:41 Temperature 98.9 F Pulse Rate 94 84 Respiratory 25 H 25 H 18 Rate Blood Pressure 142/75 126/51 O2 Sat by Pulse 95 97 Oximetry 12/29/18 12:32 Temperature Pulse Rate 85 Respiratory 18 Rate Blood Pressure 128/56 O2 Sat by Pulse 96 Oximetry - Reevaluation(s) Reevaluation #1: 12/29/18 12:46 Reevaluation after initial evaluation reveals some improvement in his aeration. Procedures - [place] Protocol (Time Out) Nurse: Brandy Barakat Medical Decision Making - Medical Decision Making Patient did respond somewhat to initial therapy as well as rendered by EMS pers onnel. Patient does demonstrate evidence of dehydration prerenal azotemia COPD exacerbation as well as hypokalemia and labs. Patient will be admitted for inpatient treatment I did discuss case with Dr. Webb. - Lab Data Result diagrams: 12/29/18 10:55 12/29/18 10:55 Lab Results 12/29/18 12/29/18 12/29/18 Range/Units 10:55 10:55 10:55 WBC 9.2 (3.8-10.6) k/uL RBC 3.82 L (4.30-5.90) m/uL Hgb 11.8 L (13.0-17.5) gm/dL Hct 36.0 L (39.0-53.0) % MCV 94.2 (80.0-100.0) fL MCH 31.0 (25.0-35.0) pg MCHC 32.9 (31.0-37.0) g/dL RDW 14.1 (11.5-15.5) % Plt Count 260 (150-450) k/uL Neutrophils % 65 % Lymphocytes % 19 % Monocytes % 8 % Eosinophils % 4 % Basophils % 1 % Neutrophils # 6.0 (1.3-7.7) k/uL Lymphocytes # 1.7 (1.0-4.8) k/uL Monocytes # 0.7 (0-1.0) k/uL Eosinophils # 0.4 (0-0.7) k/uL Basophils # 0.1 (0-0.2) k/uL PT 11.1 (9.0-12.0) sec INR 1.1 (<1.2) APTT 25.5 (22.0-30.0) sec Sodium 139 (137-145) mmol/L Potassium 3.0 L (3.5-5.1) mmol/L Chloride 88 L (98-107) mmol/L Carbon Dioxide 43 H* (22-30) mmol/L Anion Gap 8 mmol/L BUN 43 H (9-20) mg/dL Creatinine 1.47 H (0.66-1.25) mg/dL Est GFR (CKD-EPI)AfAm 54 (>60 ml/min/1.73 sqM) Est GFR (CKD-EPI)NonAf 46 (>60 ml/min/1.73 sqM) Glucose 103 H (74-99) mg/dL Calcium 9.5 (8.4-10.2) mg/dL Magnesium 2.2 (1.6-2.3) mg/dL Total Bilirubin 0.5 (0.2-1.3) mg/dL AST 50 (17-59) U/L ALT 25 (21-72) U/L Alkaline Phosphatase 94 (38-126) U/L Troponin I (0.000-0.034) ng/mL NT-Pro-B Natriuret Pep pg/mL Total Protein 6.8 (6.3-8.2) g/dL Albumin 3.9 (3.5-5.0) g/dL 12/29/18 12/29/18 Range/Units 10:55 10:55 WBC (3.8-10.6) k/uL RBC (4.30-5.90) m/uL Hgb (13.0-17.5) gm/dL Hct (39.0-53.0) % MCV (80.0-100.0) fL MCH (25.0-35.0) pg MCHC (31.0-37.0) g/dL RDW (11.5-15.5) % Plt Count (150-450) k/uL Neutrophils % % Lymphocytes % % Monocytes % % Eosinophils % % Basophils % % Neutrophils # (1.3-7.7) k/uL Lymphocytes # (1.0-4.8) k/uL Monocytes # (0-1.0) k/uL Eosinophils # (0-0.7) k/uL Basophils # (0-0.2) k/uL PT (9.0-12.0) sec INR (<1.2) APTT (22.0-30.0) sec Sodium (137-145) mmol/L Potassium (3.5-5.1) mmol/L Chloride (98-107) mmol/L Carbon Dioxide (22-30) mmol/L Anion Gap mmol/L BUN (9-20) mg/dL Creatinine (0.66-1.25) mg/dL Est GFR (CKD-EPI)AfAm (>60 ml/min/1.73 sqM) Est GFR (CKD-EPI)NonAf (>60 ml/min/1.73 sqM) Glucose (74-99) mg/dL Calcium (8.4-10.2) mg/dL Magnesium (1.6-2.3) mg/dL Total Bilirubin (0.2-1.3) mg/dL AST (17-59) U/L ALT (21-72) U/L Alkaline Phosphatase (38-126) U/L Troponin I 0.017 (0.000-0.034) ng/mL NT-Pro-B Natriuret Pep 342 pg/mL Total Protein (6.3-8.2) g/dL Albumin (3.5-5.0) g/dL - EKG Data -: EKG Interpreted by [facility] EKG shows normal: sinus rhythm (Sinus rhythm rate of 96. Interval 150 to QRS duration 80 daily since QTC 390/[address] configuration prolonged QT is noted.) - Radiology Data Radiology results: report reviewed (Review the imaging and reports no definite acute findings), image reviewed Disposition Clinical Impression: Acute exacerbation of chronic obstructive airways disease, Adult respiratory distress syndrome, Dehydration, Acute prerenal azotemia, Failure to thrive in adult Disposition: ADMITTED IP TO THIS HOSP Condition: Fair Referrals: Errol Henderson MD [Primary Care Provider] - 1-2 days
[2018-12-29] MEDS: SODIUM CHLORIDE 0.9% 1,000 ML IV SCH ×2 (13:25→21:13)
[2018-12-29] MEDS: IPRATROPIUM-ALBUTEROL 3 ML NEB INHALATION SCH ×2 (15:28→19:41)
[2018-12-29] MEDS: GABAPENTIN 300 MG CAP PO SCH ×2 (17:47→21:12)
[2018-12-29] MEDS: oxyCODONE-APAP 10-325MG 1 EACH TAB PO SCH (17:48)
[2018-12-29] MEDS ORDERED: methylPREDNISolone SOD SUCCI 125 MG/2 ML VIAL IV SCH (18:00)
[2018-12-29 20:45] LABS: Glucose,Whole Blood 228 mg/dL (75-99)
[2018-12-29] MEDS ORDERED: DONEPEZIL 10 MG TAB PO SCH (21:00)
[2018-12-29] MEDS: DIVALPROEX ER 500 MG TAB.ER.24H PO SCH (21:11)
[2018-12-29] MEDS: FAMOTIDINE 20 MG TAB PO SCH (21:12)
[2018-12-29] MEDS: INSULIN ASPART (NovoLOG) 100 UNIT/ML VIAL SQ SCH (21:12)
[2018-12-29] MEDS: OXYBUTYNIN CHLORIDE 5 MG TAB PO SCH (21:12)
[2018-12-29] MEDS ORDERED: CARBIDOPA-LEVODOPA 10-100 MG 1 EACH TAB PO SCH (22:30)
[2018-12-29] MEDS ORDERED: POTASSIUM CHLORIDE ER 20 MEQ TAB.ER PO STA (22:30)
[2018-12-30] MEDS: LACTATED RINGERS 1,000 ML IV SCH ×4 (00:09→22:59)
[2018-12-30] MEDS: methylPREDNISolone SOD SUCCI 40 MG/ML 1 ML VIAL IV SCH ×3 (00:09→16:04)
[2018-12-30] MEDS: IPRATROPIUM-ALBUTEROL 3 ML NEB INHALATION SCH ×7 (01:03→23:26)
--- NOTE | 2018-12-30 05:49 | HP ---
HISTORY AND PHYSICAL DATE OF ADMISSION: 12/29/2018 DATE OF SERVICE: 12/29/2018 PRESENTING COMPLAINT: Fall, short of breath. HISTORY OF PRESENTING COMPLAINT: This is a very pleasant 73-year-old patient who follows with Dr. Henderson out of [place]. Rather extensive medical medical history that includes coronary artery disease, CHF, COPD, dementia, GERD, hypertension, hyperlipidemia, osteoarthritis. The patient presents with multitude of symptoms including he has been falling especially for the last 2 days, complaining of bilateral foot pain. Also, he is having tremors that he has had for quite some time. Recent MRI had shown 2 old fractures and herniated disc that is compressing on a nerve followed by Dr. Reed. The patient also got neuropathy. Patient also has noticed some stiffness. Patient even fell backwards, sometimes he is dizzy, also dizzy, lightheaded. The patient's appetite is okay. The patient is a recovered alcoholic. Last drink was back in 2016. The patient's breathing he thinks is quite at his , occasionally short of breath. No cough. No fever. No chills. REVIEW OF SYSTEMS: CONSTITUTIONAL: Tired. HEENT: Decreased hearing. RESPIRATORY: Some short of breath and wheezing. CARDIOVASCULAR: None. GASTROINTESTINAL: None. GENITOURINARY: None. MUSCULOSKELETAL: Aches and pains in different joints. DERMATOLOGICAL: None. HEMATOLOGIC: None. LYMPHATIC: None. PSYCHIATRY: Forgetful. NEUROLOGICAL: Tremors are present. Numbness in lower extremity. Some rigidity. PAST MEDICAL HISTORY: Coronary artery disease, congestive heart failure, COPD, stroke, dementia, GERD, hyperlipidemia, hypertension, memory impairment, osteoarthritis, pulmonary embolism, recent MRI showed two old fractures and a herniated disc with compression on a nerve followed by Dr. Reed, chronic back pain, neuropathy lower extremity, home oxygen 3 L, hemorrhoids, small hiatal hernia, overactive bladder, recovering alcoholic, last drink in 2016. PAST SURGICAL HISTORY: Appendectomy, back surgery, low back surgery. PSYCH HISTORY: Anxiety, depression. SOCIAL HISTORY: Lives with daughter, Rica. She is the caregiver. Increasing difficulty getting about. Daughter has recently had abdominal surgery, has difficulty picking him up. Patient has a walker. Rica is legal guardian and also Ricki Deshawn is legal guardian. The patient smoked for more than 50 years. Stopped smoking in August 2015. Alcohol abuse until August 2015. Cocaine use in the past, quit 4 to 5 years ago. FAMILY HISTORY: Father had throat cancer. HOME MEDICATIONS: 1. Ropinirole 1 mg p.o. t.i.d. 2. Percocet 10 one tablet p.o. a.c. t.i.d. 3. Xarelto 20 mg p.o. daily. 4. Zantac 150 mg p.o. b.i.d. 5. [place] 100 mg p.o. daily. 6. Ditropan 5 mg b.i.d. 7. Omeprazole 40 mg p.o. daily. 8. Montelukast 10 mg p.o. daily. 9. DuoNeb q.i.d. p.r.n. 10.Neurontin 600 mg t.i.d. 11.Lasix 40 mg p.o. daily. 12.Lexapro 10 mg p.o. daily. 13.Aricept 20 mg q.h.s. 14.Depakote ER 500 mg b.i.d. 15.Symbicort 160/4.5 two puffs b.i.d. 16.Lipitor 40 mg p.o. daily. 17.Aspirin 81 mg p.o. daily. 18.ProAir 1 or 2 puffs q.4 p.r.n. 19.Ventolin 2.5 q.i.d. p.r.n. ALLERGIES: Allergy to [place]. PHYSICAL EXAMINATION: On examination, temperature 98.9, pulse 94, respiration 25, blood pressure 142/75, pulse ox 95% on 2 L. GENERAL APPEARANCE: Average build, lying in bed, a bit tired appearing. EYES: Pupils equal. Conjunctivae normal. HENT: External appearance of nose and ears normal. Oral cavity normal. NECK: JVD unable to assess. Mass not palpable. RESPIRATORY: Effort increased. LUNGS: Diminished breath sounds. CARDIOVASCULAR: First and second sounds normal. No edema. ABDOMEN: Soft, nontender. Liver and spleen not palpable. LYMPHATIC: No lymph nodes palpable in the neck and axilla. PSYCHIATRY: Patient is able to answer simple questions. NEUROLOGICAL: Pupils equal. Cranial nerves grossly intact. Some tremors are present. Decreased sensation distally. INVESTIGATIONS: White count 9.2, hemoglobin 11.8, platelets 260. Potassium 3.0, BUN 43, creatinine 1.47. The patient's labs in March 2018 were all normal creatinine. ASSESSMENT: 1. Acute renal failure probably prerenal from patient being on Lasix. 2. Hypokalemia from diuretics causing increasing muscle weakness. 3. 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 4. Chronic obstructive pulmonary disease in an ex-smoker. 5. Mild to moderate cognitive impairment probably from Alzheimer's dementia. 6. Gastroesophageal reflux disease. 7. Hyperlipidemia. 8. Essential hypertension. 9. Primary osteoarthritis. 10.Chronic low back pain. 11.Peripheral neuropathy. 12.Chronic hypoxic respiratory failure on home oxygen 3 L. 13.Coronary artery disease, prior myocardial infarction. PLAN: At this point we will stop patient's Lasix, hydrate the patient, correct patient's potassium. This may explain quite a bit of his presentation. We will also check patient's TSH and B12 level. We will also put the patient on bronchodilators, IV steroids for his COPD. Some of this patient's findings could be from Neurontin toxicity in the setting of renal failure. We will discontinue the same. Will also hold off patient's Mysoline. I do expect patient's symptoms to improve with this. Lovenox for DVT prophylaxis. MMODL / IJN: [id number] /
[2018-12-30 07:12] LABS: Glucose,Whole Blood 139 mg/dL (75-99)
[2018-12-30] MEDS: INSULIN ASPART (NovoLOG) 100 UNIT/ML VIAL SQ SCH ×4 (08:21→21:53)
[2018-12-30] MEDS: ATORVASTATIN 40 MG TAB PO SCH (08:22)
[2018-12-30] MEDS: MONTELUKAST 10 MG TAB PO SCH (08:22)
[2018-12-30] MEDS: oxyCODONE-APAP 10-325MG 1 EACH TAB PO SCH ×3 (08:22→17:51)
[2018-12-30] MEDS: PANTOPRAZOLE 40 MG TABLET PO SCH (08:23)
[2018-12-30] MEDS: ASPIRIN 81 MG PO SCH (08:23)
[2018-12-30] MEDS: OXYBUTYNIN CHLORIDE 5 MG TAB PO SCH ×2 (08:23→21:53)
[2018-12-30] MEDS: FAMOTIDINE 20 MG TAB PO SCH ×2 (08:23→21:53)
[2018-12-30] MEDS ORDERED: FUROSEMIDE 40 MG TAB PO SCH (09:00)
[2018-12-30] MEDS ORDERED: PRIMIDONE 50 MG TAB PO SCH (09:00)
[2018-12-30 09:24] LABS: Calcium 8.5 mg/dL (8.4-10.2); Potassium 3.2 mmol/L (3.5-5.1)
[2018-12-30] MEDS: ESCITALOPRAM 10 MG TAB PO SCH (10:30)
[2018-12-30] MEDS: DIVALPROEX ER 500 MG TAB.ER.24H PO SCH ×2 (10:30→21:53)
[2018-12-30] MEDS ORDERED: POTASSIUM CHLORIDE ER 20 MEQ TAB.ER PO STA (10:39)
[2018-12-30 11:55] LABS: Glucose,Whole Blood 134 mg/dL (75-99)
[2018-12-30] MEDS: RIVAROXABAN 20 MG TAB PO SCH (12:20)
[2018-12-30 16:59] LABS: Glucose,Whole Blood 132 mg/dL (75-99)
[2018-12-30 21:17] LABS: Glucose,Whole Blood 148 mg/dL (75-99)
[2018-12-30] MEDS ORDERED: GABAPENTIN 300 MG CAP PO SCH (23:45)
[2018-12-30] MEDS ORDERED: PRIMIDONE 25 MG TAB PO SCH (23:45)
[2018-12-31] MEDS: PRIMIDONE 50 MG TAB PO SCH ×4 (00:07→21:27)
[2018-12-31] MEDS: IPRATROPIUM-ALBUTEROL 3 ML NEB INHALATION SCH ×6 (04:09→19:21)
[2018-12-31 06:58] LABS: Glucose,Whole Blood 84 mg/dL (75-99)
[2018-12-31] MEDS: INSULIN ASPART (NovoLOG) 100 UNIT/ML VIAL SQ SCH ×4 (07:14→21:27)
[2018-12-31 07:29] LABS: Calcium 8.7 mg/dL (8.4-10.2); Potassium 3.2 mmol/L (3.5-5.1)
[2018-12-31] MEDS: oxyCODONE-APAP 10-325MG 1 EACH TAB PO SCH ×3 (07:58→18:05)
[2018-12-31] MEDS: ATORVASTATIN 40 MG TAB PO SCH (07:58)
[2018-12-31] MEDS: MONTELUKAST 10 MG TAB PO SCH (07:58)
[2018-12-31] MEDS: predniSONE 20 MG TAB PO SCH (07:58)
[2018-12-31] MEDS: RIVAROXABAN 20 MG TAB PO SCH (07:58)
[2018-12-31] MEDS: ESCITALOPRAM 10 MG TAB PO SCH (07:58)
[2018-12-31] MEDS: DIVALPROEX ER 500 MG TAB.ER.24H PO SCH ×2 (07:59→21:27)
[2018-12-31] MEDS: ASPIRIN 81 MG PO SCH (07:59)
[2018-12-31] MEDS: OXYBUTYNIN CHLORIDE 5 MG TAB PO SCH ×2 (07:59→21:27)
[2018-12-31] MEDS: FAMOTIDINE 20 MG TAB PO SCH (07:59)
[2018-12-31] MEDS: PANTOPRAZOLE 40 MG TABLET PO SCH (08:01)
[2018-12-31 09:53] LABS: Basophils % (A) 0 %; Eosinophils # (A) 0.1 k/uL (0-0.7); Eosinophils % (A) 1 %; HCT 28.7 % (39.0-53.0); Lymphocytes # (A) 2.6 k/uL (1.0-4.8); Lymphocytes % (A) 22 %; MCH 31.6 pg (25.0-35.0); MCHC 33.3 g/dL (31.0-37.0); MCV 94.8 fL (80.0-100.0); Mean Platelet Volume 6.9; Monocytes # (A) 0.5 k/uL (0-1.0); Monocytes % (A) 5 %; Neutrophils # (A) 8.2 k/uL (1.3-7.7); Neutrophils % (A) 70 %; Platelet Count 299 k/uL (150-450); RBC 3.03 m/uL (4.30-5.90); RDW 13.7 % (11.5-15.5); WBC 11.6 k/uL (3.8-10.6)
[2018-12-31 10:02] LABS: HGB 9.6 gm/dL (13.0-17.5)
[2018-12-31 11:34] LABS: Glucose,Whole Blood 129 mg/dL (75-99)
[2018-12-31] MEDS ORDERED: Potassium Replacement Protocol 1 EACH MISC MISCELLANE PRN ×2 (12:10→12:32)
--- NOTE | 2018-12-31 12:13 | PN ---
PROGRESS NOTE DATE OF SERVICE: 12/30/2018 PRESENTING COMPLAINT: Fall, short of breath. 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 I discontinued the patient's primidone, Requip, Neurontin. Renal function is better today. The patient's tremors and rigidity are greatly improved. The patient is feeling better, tolerating his diet. REVIEW OF SYSTEMS: Done for constitutional, cardiovascular, GI, pulmonary; relevant findings as above. CURRENT MEDICATIONS: Current medications are reviewed they include IV Solu-Medrol, lactated Ringer's. PHYSICAL EXAMINATION: On examination, temperature 98.1, pulse 77, respiration 15, blood pressure 103/56, pulse ox 90% on 3 L. GENERAL APPEARANCE: Lying in bed, more awake. EYES: Pupils equal. Conjunctiva normal. NECK: JVD unable to assess. Mass not palpable. RESPIRATORY: Effort increased. LUNGS: Decreased breath sounds. CARDIOVASCULAR: First and second sounds normal. No edema. ABDOMEN: Soft, nontender. Liver and spleen not palpable. PSYCHIATRY: Able to answer simple questions. NEUROLOGICAL: Tremors are much improved. INVESTIGATIONS: Potassium 3.2. BUN 38, creatinine 0.99. Accu-Cheks are noted. ASSESSMENT: 1. Acute renal failure probably prerenal from patient being on Lasix. 2. Hypokalemia contributing to myopathy. 3. Alcoholic myopathy causing falls, combination of hypokalemia. 4. Chronic obstructive pulmonary disease in an ex-smoker. 5. Mild to moderate cognitive impairment probably from Alzheimer's dementia. 6. Gastroesophageal reflux disease. 7. Hyperlipidemia. 8. Essential hypertension. 9. Primary osteoarthritis. 10.Peripheral neuropathy. 11.Chronic hypoxic respiratory failure on home oxygen 3 L. 12.Coronary artery disease, prior history of myocardial infarction. 13.Neurontin toxicity in the setting of renal failure. PLAN: Will DC patient's lactated Ringer's. We will switch the patient's Solu-Medrol to oral prednisone. Will keep off patient's Neurontin. Will add the primidone back at a smaller dose and spread out the dose. Patient should be able to get discharged in the next 24 hours depending how he does. Steroids can be tapered off. Care was discussed with the patient. MMODL / IJN: [id number] /
[2018-12-31] MEDS: POTASSIUM CHLORIDE ER 20 MEQ TAB.ER PO SCH ×3 (12:48→18:06)
--- NOTE | 2018-12-31 13:58 | XR ---
EXAMINATION TYPE: XR chest 1V portable DATE OF EXAM: 12/31/2018 HISTORY: SOB. REFERENCE: Previous study dated 12/29/2018. FINDINGS: Lung volumes are prominent. Heart size upper limits of normal. There are stable, mild inter stitial changes within the lungs. There is no consolidation or edema. No definite pleural fluid is se en. IMPRESSION: COPD.
[2018-12-31] MEDS ORDERED: IPRATROPIUM-ALBUTEROL 3 ML NEB INHALATION PRN (15:58)
[2018-12-31 16:19] LABS: C Reactive Protein 61.9 mg/L (<10.0); Uric Acid 6.8 mg/dL (3.5-8.5)
[2018-12-31 16:50] LABS: Glucose,Whole Blood 135 mg/dL (75-99)
[2018-12-31] MEDS: SYMBICORT 160-4.5 MCG INHALER INHALATION SCH (19:21)
[2018-12-31 20:13] LABS: Glucose,Whole Blood 152 mg/dL (75-99)
--- NOTE | 2018-12-31 20:16 | PN ---
PROGRESS NOTE DATE OF SERVICE: 12/31/2018 This 73-year-old gentleman admitted with COPD acute exacerbation also had renal failure. The patient is being closely monitored at this time. Patient is complaining of bilateral leg pain, bilateral ankle pain also. The creatinine is improved to 1 and CO2 was 43. PAST MEDICAL HISTORY: Reviewed. REVIEW OF SYSTEMS: CARDIOVASCULAR SYSTEM: No angina or palpitations. RESPIRATORY: As mentioned earlier. GI: As mentioned earlier. mentioned earlier. CENTRAL NERVOUS SYSTEM: No numbness or weakness. CURRENT MEDICATIONS: Reviewed and include: 1. DuoNeb q.i.d. and p.r.n. 2. Aspirin 81 mg. 3. Lipitor 40 mg. 4. Depakote ER 500 mg b.i.d. 5. Lexapro 10 mg daily. 6. Pepcid 20 mg b.i.d. 7. NovoLog scale. 8. Replacement protocols. 9. Singular. 10.Ditropan. 11.Percocet. 12.Protonix. 13.Prednisone. 14.Mysoline. 15.Xarelto. PHYSICAL EXAM: Patient is alert, oriented x3, pulse is 89, blood pressure 137/64, respiration 17, temperature 97.8, pulse ox 97% on 3 L. HEENT: Conjunctivae normal. NECK: No jugular venous distention. CARDIOVASCULAR: S1, S2 muffled. RESPIRATION: Breath sounds diminished in the bases. Bilateral scattered rhonchi and crackles. ABDOMEN: Soft, nontender. LEGS: No edema, no swelling. CENTRAL NERVOUS SYSTEM: No focal deficits. LAB STUDIES: WBC 9.7, hemoglobin 9.7, sodium 129, potassium 3.5. ASSESSMENT: 1. Chronic obstructive pulmonary disease acute exacerbation with acute purulent tracheobronchitis. 2. Acute renal failure with some possible prerenal factors. 3. Hypokalemia. 4. Generalized weakness and tiredness. 5. Alcoholic myopathy. 6. Vftk-zj-gekakuzc cognitive impairment with possible dementia. 7. Bilateral ankle pain. 8. Gastroesophageal reflux disease. 9. Gait dysfunction. 10.Hyperlipidemia. 11.Hypertension. 12.Degenerative joint disease. 13.History of peripheral neuropathy. 14.Chronic hypoxic respiratory failure. 15.History of coronary artery disease, myocardial infarction. 16.Possible Neurontin toxicity in the setting of renal failure on admission. RECOMMENDATIONS AND DISCUSSION: Recommend to continue current medications, management and symptomatic treatment. Otherwise, at this time, I would recommend to optimize the bronchodilator treatment. Check serum uric acid. Symptomatic treatment will be provided. Otherwise, I would also recommend PT/OT evaluation, possible ECF rehab. Guarded prognosis because of multiple complex medical issues. Further recommendations to follow. SHE / DEBBIEN: [id number] /
[2019-01-01 06:51] LABS: Glucose,Whole Blood 89 mg/dL (75-99)
[2019-01-01] MEDS: INSULIN ASPART (NovoLOG) 100 UNIT/ML VIAL SQ SCH ×4 (07:06→22:16)
[2019-01-01 07:46] LABS: Anion Gap 2 mmol/L; Blood Urea Nitrogen 23 mg/dL (9-20); Calcium 9.2 mg/dL (8.4-10.2); Carbon Dioxide 33 mmol/L (22-30); Chloride 105 mmol/L (98-107); Glucose 81 mg/dL (74-99); Potassium 4.6 mmol/L (3.5-5.1); Sodium 140 mmol/L (137-145)
[2019-01-01] MEDS: IPRATROPIUM-ALBUTEROL 3 ML NEB INHALATION SCH ×5 (08:14→20:03)
[2019-01-01] MEDS: SYMBICORT 160-4.5 MCG INHALER INHALATION SCH ×2 (08:14→20:01)
[2019-01-01] MEDS: oxyCODONE-APAP 10-325MG 1 EACH TAB PO SCH ×3 (08:28→18:23)
[2019-01-01] MEDS: ESCITALOPRAM 10 MG TAB PO SCH (08:28)
[2019-01-01] MEDS: predniSONE 20 MG TAB PO SCH (08:28)
[2019-01-01] MEDS: RIVAROXABAN 20 MG TAB PO SCH (08:28)
[2019-01-01] MEDS: ATORVASTATIN 40 MG TAB PO SCH (08:28)
[2019-01-01] MEDS: OXYBUTYNIN CHLORIDE 5 MG TAB PO SCH ×2 (08:28→22:16)
[2019-01-01] MEDS: PANTOPRAZOLE 40 MG TABLET PO SCH (08:28)
[2019-01-01] MEDS: MONTELUKAST 10 MG TAB PO SCH (08:28)
[2019-01-01] MEDS: PRIMIDONE 50 MG TAB PO SCH ×3 (08:28→22:16)
[2019-01-01] MEDS: ASPIRIN 81 MG PO SCH (08:28)
[2019-01-01] MEDS: DIVALPROEX ER 500 MG TAB.ER.24H PO SCH ×2 (08:32→22:16)
[2019-01-01 11:39] LABS: Glucose,Whole Blood 113 mg/dL (75-99)
[2019-01-01 16:51] LABS: Glucose,Whole Blood 107 mg/dL (75-99)
[2019-01-01 21:30] LABS: Glucose,Whole Blood 113 mg/dL (75-99)
--- NOTE | 2019-01-01 23:18 | PN ---
PROGRESS NOTE DATE OF SERVICE: 01/01/2019 This 73-year-old gentleman who was admitted with COPD exacerbation, as well as acute tracheobronchitis also had acute renal failure also. Creatinine is improved significantly. Patient improved significantly. No chest pain. No palpitations. No fever. EXAM: Alert and oriented x3. The pulse is 81. Blood pressure 151/75, respiration 16, temperature 97.8, pulse ox 98% on 3 L. HEENT: Conjunctivae normal. NECK: No jugular venous distention. CARDIOVASCULAR: S1, S2 muffled. RESPIRATORY: Breath sounds diminished in the bases. Bilateral scattered rhonchi and crackles. ABDOMEN is soft, nontender. LEGS: No edema. No swelling. CENTRAL NERVOUS SYSTEM: No focal deficits. LAB: Sodium 140, potassium 4.7. WBC 11.6. ASSESSMENT: 1. Chronic obstructive pulmonary disease acute exacerbation with acute purulent tracheobronchitis. 2. Acute renal failure with some possible prerenal factors, improved. 3. Hypokalemia improved. 4. Generalized weakness and gait dysfunction, tiredness. 5. Alcoholic myopathy. 6. Wgdx-po-dasxyets cognitive impairment with possible dementia. 7. Bilateral ankle pains. 8. History of gastroesophageal reflux disease. 9. Gait dysfunction. 10.Hyperlipidemia. 11.Hypertension. 12.History of degenerative joint disease. 13.History of peripheral neuropathy. 14.Chronic hypoxic respiratory failure. 15.History of coronary artery disease. 16.Myocardial infarction. 17.History of possible Neurontin toxicity in the setting of renal failure, present on admission. RECOMMENDATIONS AND DISCUSSION: Recommend to continue current medications, management and symptomatic treatment. Patient improved significantly. I would recommend continue with p.o. steroids and also PT/OT evaluation, possible ECF rehab. The patient could be discharged in the next 24 to 48 hours. Further recommendations to follow. MMODL / IJN: [id number] /
[2019-01-02 07:12] LABS: Glucose,Whole Blood 82 mg/dL (75-99)
[2019-01-02] MEDS: IPRATROPIUM-ALBUTEROL 3 ML NEB INHALATION SCH ×4 (07:51→20:02)
[2019-01-02] MEDS: INSULIN ASPART (NovoLOG) 100 UNIT/ML VIAL SQ SCH ×4 (07:51→21:04)
[2019-01-02] MEDS: SYMBICORT 160-4.5 MCG INHALER INHALATION SCH ×2 (07:51→20:01)
[2019-01-02] MEDS: oxyCODONE-APAP 10-325MG 1 EACH TAB PO SCH ×3 (07:53→16:38)
[2019-01-02] MEDS: ASPIRIN 81 MG PO SCH (07:54)
[2019-01-02] MEDS: DIVALPROEX ER 500 MG TAB.ER.24H PO SCH ×2 (07:54→20:57)
[2019-01-02] MEDS: MONTELUKAST 10 MG TAB PO SCH (07:54)
[2019-01-02] MEDS: PRIMIDONE 50 MG TAB PO SCH ×3 (07:54→20:57)
[2019-01-02] MEDS: ATORVASTATIN 40 MG TAB PO SCH (07:54)
[2019-01-02] MEDS: PANTOPRAZOLE 40 MG TABLET PO SCH (07:54)
[2019-01-02] MEDS: predniSONE 20 MG TAB PO SCH (07:54)
[2019-01-02] MEDS: ESCITALOPRAM 10 MG TAB PO SCH (07:54)
[2019-01-02] MEDS: RIVAROXABAN 20 MG TAB PO SCH (07:55)
[2019-01-02] MEDS: OXYBUTYNIN CHLORIDE 5 MG TAB PO SCH ×2 (07:55→20:57)
[2019-01-02 08:37] LABS: Anion Gap 2 mmol/L; Blood Urea Nitrogen 23 mg/dL (9-20); Carbon Dioxide 32 mmol/L (22-30); Chloride 108 mmol/L (98-107); Glucose 80 mg/dL (74-99); Sodium 142 mmol/L (137-145)
[2019-01-02 12:12] LABS: Glucose,Whole Blood 127 mg/dL (75-99)
[2019-01-02 17:04] LABS: Glucose,Whole Blood 125 mg/dL (75-99)
[2019-01-02 20:41] LABS: Glucose,Whole Blood 148 mg/dL (75-99)
--- NOTE | 2019-01-02 21:50 | PN ---
PROGRESS NOTE DATE OF SERVICE: 01/02/2019 This 73 -year-old gentleman who was admitted with COPD acute exacerbation also had renal failure. Patient being closely monitored. No chest pain. No palpitations. No fever. Patient admitted with generalized weakness and tiredness. The family is concerned. EXAM: Alert and oriented x2. Pulse 92, blood pressure 104/50, respirations 16, temperature 98.2, pulse ox 98% on room air. HEENT: Conjunctivae normal. NECK: No jugular venous distention. CARDIOVASCULAR: S1, S2 muffled. RESPIRATORY: Breath sounds diminished in the bases. Scattered rhonchi and crackles. ABDOMEN is soft. Nontender. CENTRAL NERVOUS SYSTEM: No focal deficits. LABS: Sodium 142, potassium 5, WBC 11.2, hemoglobin 9.6. ASSESSMENT: 1. Chronic obstructive pulmonary disease acute exacerbation with acute purulent tracheobronchitis. 2. Acute renal failure with possible prerenal factors, improved. 3. Hypokalemia,improved. 4. Generalized weakness and gait dysfunction and tiredness. 5. Alcoholic myopathy. 6. Mild to moderate cognitive impairment with possible dementia. 7. Bilateral ankle pain. 8. History of gastroesophageal reflux disease. 9. Gait dysfunction. 10.Hypertension. 11.Hyperlipidemia. 12.History of degenerative joint disease. 13.History of peripheral neuropathy. 14.Chronic hypoxic respiratory failure. 15.History of coronary artery disease. 16.History of myocardial infarction. 17.History of possible Neurontin toxicity in the setting of renal failure present on admission. RECOMMENDATIONS AND DISCUSSION: Recommend to continue current medications, medical treatment, management and current treatment, otherwise, I would also recommend PT/OT evaluation, possible ECF rehab. Guarded prognosis. Further recommendations to follow. MMODL / IJN: [id number] /
[2019-01-03 07:11] LABS: Glucose,Whole Blood 84 mg/dL (75-99)
[2019-01-03] MEDS: SYMBICORT 160-4.5 MCG INHALER INHALATION SCH ×2 (07:26→19:48)
[2019-01-03] MEDS: IPRATROPIUM-ALBUTEROL 3 ML NEB INHALATION SCH ×4 (07:26→19:48)
[2019-01-03] MEDS: INSULIN ASPART (NovoLOG) 100 UNIT/ML VIAL SQ SCH ×4 (08:46→20:38)
[2019-01-03] MEDS: ASPIRIN 81 MG PO SCH (08:53)
[2019-01-03] MEDS: PANTOPRAZOLE 40 MG TABLET PO SCH (08:53)
[2019-01-03] MEDS: oxyCODONE-APAP 10-325MG 1 EACH TAB PO SCH ×3 (08:53→18:08)
[2019-01-03] MEDS: predniSONE 20 MG TAB PO SCH (08:53)
[2019-01-03] MEDS: DIVALPROEX ER 500 MG TAB.ER.24H PO SCH ×2 (08:53→20:35)
[2019-01-03] MEDS: ESCITALOPRAM 10 MG TAB PO SCH (08:55)
[2019-01-03] MEDS: RIVAROXABAN 20 MG TAB PO SCH (08:55)
[2019-01-03] MEDS: PRIMIDONE 50 MG TAB PO SCH ×3 (08:55→20:35)
[2019-01-03] MEDS: OXYBUTYNIN CHLORIDE 5 MG TAB PO SCH ×2 (08:55→20:35)
[2019-01-03] MEDS: MONTELUKAST 10 MG TAB PO SCH (08:55)
[2019-01-03] MEDS: ATORVASTATIN 40 MG TAB PO SCH (08:55)
[2019-01-03 09:50] LABS: Anion Gap 4 mmol/L; Blood Urea Nitrogen 23 mg/dL (9-20); Calcium 9.2 mg/dL (8.4-10.2); Carbon Dioxide 30 mmol/L (22-30); Chloride 108 mmol/L (98-107); Glucose 92 mg/dL (74-99); Potassium 4.7 mmol/L (3.5-5.1); Sodium 142 mmol/L (137-145)
[2019-01-03 11:57] LABS: Glucose,Whole Blood 138 mg/dL (75-99)
[2019-01-03 17:26] LABS: Glucose,Whole Blood 118 mg/dL (75-99)
[2019-01-03 20:35] LABS: Glucose,Whole Blood 170 mg/dL (75-99)
[2019-01-04 05:55] VITALS: BP 152/83; RESP 15; TEMP 98.1
[2019-01-04 07:37] LABS: Glucose,Whole Blood 88 mg/dL (75-99)
[2019-01-04] MEDS: INSULIN ASPART (NovoLOG) 100 UNIT/ML VIAL SQ SCH ×2 (08:02→12:26)
[2019-01-04] MEDS: PRIMIDONE 50 MG TAB PO SCH (08:04)
[2019-01-04] MEDS: DIVALPROEX ER 500 MG TAB.ER.24H PO SCH (08:04)
[2019-01-04] MEDS: OXYBUTYNIN CHLORIDE 5 MG TAB PO SCH (08:05)
[2019-01-04] MEDS: PANTOPRAZOLE 40 MG TABLET PO SCH (08:05)
[2019-01-04] MEDS: ESCITALOPRAM 10 MG TAB PO SCH (08:05)
[2019-01-04] MEDS: predniSONE 20 MG TAB PO SCH (08:05)
[2019-01-04] MEDS: MONTELUKAST 10 MG TAB PO SCH (08:05)
[2019-01-04] MEDS: ATORVASTATIN 40 MG TAB PO SCH (08:05)
[2019-01-04] MEDS: ASPIRIN 81 MG PO SCH (08:05)
[2019-01-04] MEDS: oxyCODONE-APAP 10-325MG 1 EACH TAB PO SCH ×2 (08:05→14:25)
[2019-01-04] MEDS: RIVAROXABAN 20 MG TAB PO SCH (08:06)
[2019-01-04] MEDS: IPRATROPIUM-ALBUTEROL 3 ML NEB INHALATION SCH ×2 (09:21→12:53)
[2019-01-04] MEDS: SYMBICORT 160-4.5 MCG INHALER INHALATION SCH (09:21)
[2019-01-04 09:34] VITALS: PULSE 80
--- NOTE | 2019-01-04 09:58 | P.DS ---
Providers Date of admission: 01/01/19 13:48 Attending physician: Marlo Webb Primary care physician: Errol Henderson [facility] Course: Final diagnosis COPD acute exacerbation with acute purulent tracheobronchitis. Acute renal failure with a possible prerenal factors Hypokalemia improved Generalized weakness and gait dysfunction and tiredness. Alcohol myopathy Mild to moderate cognitive impairment with the possible dementia. Bilateral ankle pain. History of GERD. Gait dysfunction. Hypertension Hyperlipidemia History DJD Assessment History of peripheral neuropathy Chronic hypoxic respiratory failure History of CAD History of microinfarction eczema Mccurtain history of possibly Neurontin toxicity in the setting of renal failure present on admission. Discharge disposition Patient be discharged in a stable condition the guarded prognosis to ECF. Time taken 35 minutes. History of present illness This 73-year-old gentleman with a past history multiple medical was admitted to COPD acute exacerbation as well as multiple upon the complex medical issues. Patient was treated symptomatically patient was significantly. Patient be sent to ECF rehab possibly to [facility] at this time. Please note the medication changes. Currently on exam vitals are stable. Cardio S1 and S2 normal. Respirator service. Abdomen Soft Nontender No System and Diffuse Weakness. Lasix Doses and Reduced to 20 Mg by Mouth Daily. Monitor BUN/creatinine Perla sely. Neurontin Dose Was Also Reduced. Please Refer to Medication Sheet for Further Information. Patient Condition at Discharge: Fair Plan - Discharge Summary Discharge Rx Participant: No New Discharge Prescriptions: New Cefuroxime Axetil [Ceftin] 500 mg PO BID 3 Days #6 tab Ipratropium-Albuterol Nebulize [Duoneb 0.5 mg-3 mg/3 ml Soln] 3 ml INHALATION RT-QID ampul.neb predniSONE 10 mg PO DIRECTED #30 tab Budesonide/Formoterol Fumarate [Symbicort 160-4.5 Mcg Inhaler] 1 puff IH BID #1 hfa.aer.ad Furosemide [Lasix] 20 mg PO DAILY #1 tab Continue Oxybutynin Chloride [Ditropan] 5 mg PO BID Montelukast Sodium 10 mg PO DAILY Budesonide/Formoterol Fumarate [Symbicort 160-4.5 Mcg Inhaler] 2 puff INHALATION RT-BID Albuterol Sulfate [Proair Hfa] 1 - 2 puff INHALATION RT-Q4H PRN PRN Reason: Shortness Of Breath Escitalopram [Lexapro] 10 mg PO DAILY Atorvastatin [Lipitor] 40 mg PO DAILY #30 tab Primidone [Mysoline] 100 mg PO DAILY Aspirin 81 mg PO DAILY #0 chew Omeprazole 40 mg PO DAILY Donepezil [Aricept] 20 mg PO HS Ipratropium-Albuterol Nebulize [Duoneb 0.5 mg-3 mg/3 ml Soln] 3 ml INHALATION RT-QID PRN PRN Reason: Shortness Of Breath Rivaroxaban [Xarelto] 20 mg PO DAILY Divalproex Sodium [Depakote ER] 500 mg PO BID rOPINIRole HCL [Requip] 1 mg PO TID Furosemide [Lasix] 40 mg PO DAILY Gabapentin 600 mg PO TID #10 tablet oxyCODONE-APAP 10-325MG [Percocet 10-325 mg] 1 tab PO AC-TID #10 tab Discontinued Ranitidine HCl [Zantac] 150 mg PO BID Albuterol Nebulized [Ventolin Nebulized] 2.5 mg INHALATION RT-QID PRN PRN Reason: Shortness Of Breath Discharge Medication List Montelukast Sodium 10 mg PO DAILY 06/14/15 [History] Oxybutynin Chloride [Ditropan] 5 mg PO BID 06/14/15 [History] Albuterol Sulfate [Proair Hfa] 1 - 2 puff INHALATION RT-Q4H PRN 10/14/15 [History] Budesonide/Formoterol Fumarate [Symbicort 160-4.5 Mcg Inhaler] 2 puff INHALATION RT-BID 10/14/15 [History] Escitalopram [Lexapro] 10 mg PO DAILY 07/24/16 [History] Atorvastatin [Lipitor] 40 mg PO DAILY #30 tab 07/28/16 [Rx] Primidone [Mysoline] 100 mg PO DAILY 06/14/17 [History] Aspirin 81 mg PO DAILY #0 chew 08/10/17 [Rx] Divalproex Sodium [Depakote ER] 500 mg PO BID 04/13/18 [History] Donepezil [Aricept] 20 mg PO HS 04/13/18 [History] Ipratropium-Albuterol Nebulize [Duoneb 0.5 mg-3 mg/3 ml Soln] 3 ml INHALATION RT-QID PRN 04/13/18 [History] Omeprazole 40 mg PO DAILY 04/13/18 [History] Rivaroxaban [Xarelto] 20 mg PO DAILY 04/13/18 [History] Furosemide [Lasix] 40 mg PO DAILY 12/29/18 [History] rOPINIRole HCL [Requip] 1 mg PO TID 12/29/18 [History] Budesonide/Formoterol Fumarate [Symbicort 160-4.5 Mcg Inhaler] 1 puff IH BID #1 hfa.aer.ad 01/04/19 [Rx] Cefuroxime Axetil [Ceftin] 500 mg PO BID 3 Days #6 tab 01/04/19 [Rx] Furosemide [Lasix] 20 mg PO DAILY #1 tab 01/04/19 [Rx] Gabapentin 600 mg PO TID #10 tablet 01/04/19 [Rx] Ipratropium-Albuterol Nebulize [Duoneb 0.5 mg-3 mg/3 ml Soln] 3 ml INHALATION RT-QID ampul.neb 01/04/19 [Rx] oxyCODONE-APAP 10-325MG [Percocet 10-325 mg] 1 tab PO AC-TID #10 tab 01/04/19 [Rx] predniSONE 10 mg PO DIRECTED #30 tab 01/04/19 [Rx] Follow up Appointment(s)/Referral(s): Errol Henderson MD [Primary Care Provider] - 2 Weeks Ricki Winters DO [STAFF PHYSICIAN] - 3 Days
[2019-01-04 12:13] LABS: Glucose,Whole Blood 112 mg/dL (75-99)
== END 2019-01-04 14:34 | disposition home or self-care (01) | DRG 191 ==
LOC: EC 10:38 → 4SSUR 12:51 → OBSVTOIN 01-01 13:48 → 4MS4W 01-01 15:34
PROVIDERS: ADMIT Hospitalist; ATTEND Hospitalist
DX: J44.0 Chronic obstructive pulmonary disease with (acute) lower respiratory infection (principal); N17.9 Acute kidney failure, unspecified; G72.1 Alcoholic myopathy; J96.11 Chronic respiratory failure with hypoxia; I50.32 Chronic diastolic (congestive) heart failure; J44.1 Chronic obstructive pulmonary disease with (acute) exacerbation; E87.6 Hypokalemia; T50.2X5A Adverse effect of carbonic-anhydrase inhibitors, benzothiadiazides and other diuretics, initial encounter; I11.0 Hypertensive heart disease with heart failure; G30.9 Alzheimer's disease, unspecified; F02.80 Dementia in other diseases classified elsewhere, unspecified severity, without behavioral disturbance, psychotic disturbance, mood disturbance, and anxiety; K21.9 Gastro-esophageal reflux disease without esophagitis; E86.0 Dehydration; R29.6 Repeated falls; M19.90 Unspecified osteoarthritis, unspecified site; I25.10 Atherosclerotic heart disease of native coronary artery without angina pectoris; G62.9 Polyneuropathy, unspecified; E78.5 Hyperlipidemia, unspecified; G89.29 Other chronic pain; M54.5 Low back pain; J20.9 Acute bronchitis, unspecified; F32.9 Major depressive disorder, single episode, unspecified; F41.9 Anxiety disorder, unspecified; R26.9 Unspecified abnormalities of gait and mobility; T42.6X5A Adverse effect of other antiepileptic and sedative-hypnotic drugs, initial encounter; R62.7 Adult failure to thrive; Z91.81 History of falling; Z79.01 Long term (current) use of anticoagulants; Z79.51 Long term (current) use of inhaled steroids; Z79.899 Other long term (current) drug therapy; Z87.891 Personal history of nicotine dependence; I25.2 Old myocardial infarction; Z99.81 Dependence on supplemental oxygen; Z79.82 Long term (current) use of aspirin; Z91.018 Allergy to other foods; Z86.73 Personal history of transient ischemic attack (TIA), and cerebral infarction without residual deficits; Z87.01 Personal history of pneumonia (recurrent); Z86.711 Personal history of pulmonary embolism; Z90.49 Acquired absence of other specified parts of digestive tract; Z98.890 Other specified postprocedural states; Z80.3 Family history of malignant neoplasm of breast; Z80.8 Family history of malignant neoplasm of other organs or systems
CPT/HCPCS: 36415; 71045; 71046; 80048; 80053; 83735; 83880; 84132; 84484; 84550; 85025; 85610; 85652; 85730; 86140; 93005; 94640; 94760; 96361; 96374; 99285

== ENCOUNTER 2019-01-18 09:42 | Observation (INO) | payer MEDICARE ==
[2019-01-18] MEDS ORDERED: ASPIRIN 81 MG PO STA (10:24)
[2019-01-18] MEDS ORDERED: NITROGLYCERIN OINT 1 INCH/GM PACKET TOPICAL STA (10:24)
--- NOTE | 2019-01-18 10:28 | ED ---
General Adult HPI - General Chief complaint: Chest Pain Stated complaint: CHEST PAIN Time Seen by Provider: 01/18/19 10:12 Source: patient, family, EMS, RN notes reviewed Mode of arrival: EMS Limitations: no limitations - History of Present Illness Initial comments: Patient is a pleasant 73-year-old male presenting to the emergency Department with complaints of chest discomfort. Daughter is present and helps provide history. Patient comes from a rehab facility. Patient there secondary to bilateral sprained ankles. Patient's discomfort resolved with nitro and aspirin. Patient is currently symptom-free. Discomfort was described as indigestion. There was some associated dyspnea and sweating however those have resolved as well. No nausea. Patient does have a history of similar symptoms previously associated with CHF per daughter. - Related Data Home Medications Medication Instructions Recorded Confirmed Montelukast Sodium 10 mg PO DAILY@0800 06/14/15 01/18/19 Oxybutynin Chloride [Ditropan] 5 mg PO BID@0800,1700 06/14/15 01/18/19 Albuterol Sulfate [Proair Hfa] 1 - 2 puff INHALATION RT-Q4H PRN 10/14/15 01/18/19 Escitalopram [Lexapro] 10 mg PO DAILY@0800 07/24/16 01/18/19 Primidone [Mysoline] 100 mg PO HS@209906/14/17 01/18/19 Donepezil [Aricept] 20 mg PO HS@2100 04/13/18 01/18/19 Ipratropium-Albuterol Nebulize 3 ml INHALATION RT-QID PRN 04/13/18 01/18/19 [Duoneb 0.5 mg-3 mg/3 ml Soln] Omeprazole 40 mg PO DAILY@0600 04/13/18 01/18/19 Rivaroxaban [Xarelto] 20 mg PO DAILY@0800 04/13/18 01/18/19 Furosemide [Lasix] 40 mg PO DAILY@0600 12/29/18 01/18/19 rOPINIRole HCL [Requip] 1 mg PO TID@0600,1400,2100 12/29/18 01/18/19 Aspirin 81 mg PO DAILY@1700 01/18/19 01/18/19 Atorvastatin [Lipitor] 40 mg PO HS@209901/18/19 01/18/19 Bisacodyl 10 mg RECTAL DAILY PRN 01/18/19 01/18/19 Budesonide/Formoterol Fumarate 1 puff INHALATION RT-BID 01/18/19 01/18/19 [Symbicort 160-4.5 Mcg Inhaler] Divalproex Sodium [Depakote] 500 mg PO BID@0800,1700 01/18/19 01/18/19 Gabapentin [Neurontin] 100 mg PO TID@0600,1400,2100 01/18/19 01/18/19 Lactose-Reduced Food [Ensure Plus] 1 can PO BID@0800,1700 01/18/19 01/18/19 Magnesium Hydroxide [Milk of 2,400 mg PO DAILY PRN 01/18/19 01/18/19 Magnesia] Na Phos,M-B/Na Phos,Di-Ba [Fleet 133 ml RECTAL DAILY PRN 01/18/19 01/18/19 Adult] oxyCODONE-APAP 10-325MG [Percocet 1 tab PO TID@0700,1100,1730 01/18/19 01/18/19 10-325 mg] predniSONE See Taper PO DAILY 01/18/19 01/18/19 Previous Rx's Medication Instructions Recorded Ipratropium-Albuterol Nebulize 3 ml INHALATION RT-QID ampul.neb 01/04/19 [Duoneb 0.5 mg-3 mg/3 ml Soln] Allergies Allergy/AdvReac Type Severity Reaction Status Date / Time caffeine AdvReac Diarrhea Verified 01/18/19 10:03 Review of Systems ROS Statement: Those systems with pertinent positive or pertinent negative responses have been documented in the HPI. ROS Other: All systems not noted in ROS Statement are negative. Constitutional: Denies: fever Eyes: Denies: eye pain ENT: Denies: ear pain Respiratory: Reports: as per HPI Cardiovascular: Reports: as per HPI Endocrine: Denies: fatigue Gastrointestinal: Denies: abdominal pain Genitourinary: Denies: dysuria Musculoskeletal: Denies: back pain Skin: Denies: rash Neurological: Denies: weakness Past Medical History Past Medical History: Coronary Artery Disease (CAD), Heart Failure, COPD, CVA/TIA, Dementia, GERD/Reflux, Hyperlipidemia, Hypertension, Memory Impairment, Myocardial Infarction (HI), Osteoarthritis (OA), Pneumonia, Pulmonary Embolus (PE), Syncope Additional Past Medical History / Comment(s): Pt has been falling and has fallen 2 days in a row-since falls, has been complaining of bilateral foot pain and has had increased difficulty ambulating, legs "buckle", tremors, recent MRI showed 2 old fractures and a herniated disc which is compressing on a nerve-followed by Dr. 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 Last Myocardial Infarction Date:: unknown History of Any Multi-Drug Resistant Organisms: None Reported Past Surgical History: Appendectomy, Back Surgery Additional Past Surgical History / Comment(s): EGD with bx/colonoscopy with bx, bronchoscopy, low back surgery, PICC-since removed. Past Anesthesia/Blood Transfusion Reactions: No Reported Reaction Additional Past Anesthesia/Blood Transfusion Reaction / Comment(s): Pt has never received blood. Past Psychological History: Anxiety, Depression Smoking Status: Former smoker Past Alcohol Use History: None Reported Past Drug Use History: None Reported - Past Family History Father Family Medical History: Cancer Additional Family Medical History / Comment(s): Father had throat cancer. Mother Family Medical History: Cancer Additional Family Medical History / Comment(s): Mother had breast cancer. General Exam Limitations: no limitations General appearance: alert, in no apparent distress Head exam: Present: atraumatic Eye exam: Present: normal appearance, PERRL ENT exam: Present: normal oropharynx Neck exam: Present: normal inspection Respiratory exam: Present: normal lung sounds bilaterally, respiratory distress. Absent: chest wall tenderness Cardiovascular Exam: Present: regular rate, normal rhythm GI/Abdominal exam: Present: soft. Absent: tenderness Extremities exam: Present: normal inspection. Absent: pedal edema, calf tenderness Neurological exam: Present: alert Psychiatric exam: Present: normal affect, normal mood Skin exam: Present: normal color Course Vital Signs 01/18/19 01/18/19 09:53 12:03 Temperature 97.8 F Pulse Rate 62 74 Respiratory 22 20 Rate Blood Pressure 147/83 123/66 O2 Sat by Pulse 99 97 Oximetry EKG Findings - EKG Comments: EKG Findings:: Normal sinus rhythm at 62. IL 144. QRS 86. QT 412. QTC 420. Normal axis. Normal QRS. No acute ST change. Medical Decision Making - Medical Decision Making Patient reevaluated. Patient and family updated. Dr. Escalona with [facility] has been paged for admission, covering for Dr. patel, who admits for Dr. Bee. - Lab Data Result diagrams: 01/18/19 10:00 01/18/19 10:00 Lab Results 01/18/19 01/18/19 01/18/19 Range/Units 10:00 10:00 10:00 WBC 10.8 H (3.8-10.6) k/uL RBC 3.68 L (4.30-5.90) m/uL Hgb 10.9 L (13.0-17.5) gm/dL Hct 35.3 L (39.0-53.0) % MCV 95.8 (80.0-100.0) fL MCH 29.7 (25.0-35.0) pg MCHC 31.0 (31.0-37.0) g/dL RDW 14.4 (11.5-15.5) % Plt Count 295 (150-450) k/uL Neutrophils % 65 % Lymphocytes % 22 % Monocytes % 7 % Eosinophils % 4 % Basophils % 1 % Neutrophils # 7.0 (1.3-7.7) k/uL Lymphocytes # 2.4 (1.0-4.8) k/uL Monocytes # 0.8 (0-1.0) k/uL Eosinophils # 0.4 (0-0.7) k/uL Basophils # 0.1 (0-0.2) k/uL PT (9.0-12.0) sec INR (<1.2) APTT (22.0-30.0) sec Sodium 140 (137-145) mmol/L Potassium 4.2 (3.5-5.1) mmol/L Chloride 104 (98-107) mmol/L Carbon Dioxide 30 (22-30) mmol/L Anion Gap 6 mmol/L BUN 13 (9-20) mg/dL Creatinine 0.83 (0.66-1.25) mg/dL Est GFR (CKD-EPI)AfAm >90 (>60 ml/min/1.73 sqM) Est GFR (CKD-EPI)NonAf 87 (>60 ml/min/1.73 sqM) Glucose 85 (74-99) mg/dL Calcium 8.7 (8.4-10.2) mg/dL Magnesium 2.0 (1.6-2.3) mg/dL Total Bilirubin 0.2 (0.2-1.3) mg/dL AST 26 (17-59) U/L ALT 45 (21-72) U/L Alkaline Phosphatase 116 (38-126) U/L Creatine Kinase 38 L (55-170) U/L CK-MB (CK-2) 1.1 (0.0-2.4) ng/mL Troponin I <0.012 (0.000-0.034) ng/mL Total Protein 5.8 L (6.3-8.2) g/dL Albumin 3.3 L (3.5-5.0) g/dL 01/18/19 Range/Units 10:00 WBC (3.8-10.6) k/uL RBC (4.30-5.90) m/uL Hgb (13.0-17.5) gm/dL Hct (39.0-53.0) % MCV (80.0-100.0) fL MCH (25.0-35.0) pg MCHC (31.0-37.0) g/dL RDW (11.5-15.5) % Plt Count (150-450) k/uL Neutrophils % % Lymphocytes % % Monocytes % % Eosinophils % % Basophils % % Neutrophils # (1.3-7.7) k/uL Lymphocytes # (1.0-4.8) k/uL Monocytes # (0-1.0) k/uL Eosinophils # (0-0.7) k/uL Basophils # (0-0.2) k/uL PT 11.0 (9.0-12.0) sec INR 1.0 (<1.2) APTT 27.6 (22.0-30.0) sec Sodium (137-145) mmol/L Potassium (3.5-5.1) mmol/L Chloride (98-107) mmol/L Carbon Dioxide (22-30) mmol/L Anion Gap mmol/L BUN (9-20) mg/dL Creatinine (0.66-1.25) mg/dL Est GFR (CKD-EPI)AfAm (>60 ml/min/1.73 sqM) Est GFR (CKD-EPI)NonAf (>60 ml/min/1.73 sqM) Glucose (74-99) mg/dL Calcium (8.4-10.2) mg/dL Magnesium (1.6-2.3) mg/dL Total Bilirubin (0.2-1.3) mg/dL AST (17-59) U/L ALT (21-72) U/L Alkaline Phosphatase (38-126) U/L Creatine Kinase (55-170) U/L CK-MB (CK-2) (0.0-2.4) ng/mL Troponin I (0.000-0.034) ng/mL Total Protein (6.3-8.2) g/dL Albumin (3.5-5.0) g/dL - Radiology Data Radiology results: image reviewed (Chest x-ray shows no acute process) Disposition Clinical Impression: Chest pain Disposition: ADMITTED IP TO THIS HOSP Is patient prescribed a controlled substance at d/c from ED?: No Referrals: Errol Henderson MD [Primary Care Provider] - 1-2 days Decision Time: 13:14
[2019-01-18 10:57] LABS: ALT 45 U/L (21-72); AST 26 U/L (17-59); Albumin 3.3 g/dL (3.5-5.0); Alkaline Phosphatase 116 U/L (38-126); Anion Gap 6 mmol/L; Blood Urea Nitrogen 13 mg/dL (9-20); Calcium 8.7 mg/dL (8.4-10.2); Carbon Dioxide 30 mmol/L (22-30); Chloride 104 mmol/L (98-107); Creatine Kinase 38 U/L (55-170); Glucose 85 mg/dL (74-99); Potassium 4.2 mmol/L (3.5-5.1); Sodium 140 mmol/L (137-145); Total Bilirubin 0.2 mg/dL (0.2-1.3); Total Protein 5.8 g/dL (6.3-8.2)
--- NOTE | 2019-01-18 10:57 | XR ---
EXAMINATION TYPE: XR chest 2V DATE OF EXAM: 01/18/2019 COMPARISON: September 24, 2016 as well as 12/31/2018 HISTORY: Shortness of breath TECHNIQUE: Frontal and lateral views of the chest are obtained. FINDINGS: Scattered senescent parenchymal changes noted. Hyperinflation compatible with COPD. No evidence for infiltrate. No evidence for atelectasis. Heart size is stable. Mediastinal structures are stable and grossly unremarkable. Chronic left hilar prominence. Degenerative changes dorsal spine. IMPRESSION: 1. No evidence for acute pulmonary disease.
[2019-01-18 11:04] LABS: Basophils # (A) 0.1 k/uL (0-0.2); Basophils % (A) 1 %; Eosinophils # (A) 0.4 k/uL (0-0.7); Eosinophils % (A) 4 %; HCT 35.3 % (39.0-53.0); HGB 10.9 gm/dL (13.0-17.5); Lymphocytes # (A) 2.4 k/uL (1.0-4.8); Lymphocytes % (A) 22 %; MCH 29.7 pg (25.0-35.0); MCV 95.8 fL (80.0-100.0); Mean Platelet Volume 6.9; Monocytes # (A) 0.8 k/uL (0-1.0); Monocytes % (A) 7 %; Neutrophils % (A) 65 %; Platelet Count 295 k/uL (150-450); RBC 3.68 m/uL (4.30-5.90); RDW 14.4 % (11.5-15.5); WBC 10.8 k/uL (3.8-10.6)
[2019-01-18 11:14] LABS: Partial Thromboplastin Time 27.6 sec (22.0-30.0)
[2019-01-18 11:24] LABS: Creatine Kinase MB 1.1 ng/mL (0.0-2.4); Troponin I <0.012 ng/mL (0.000-0.034)
[2019-01-18] MEDS ORDERED: NITROGLYCERIN SL TABS 0.4 MG TAB SUBLINGUAL PRN (13:15)
[2019-01-18] MEDS ORDERED: BISACODYL 10 MG SUPP RECTAL PRN (15:46)
[2019-01-18] MEDS ORDERED: MAGNESIUM HYDROXIDE 2,400 MG/10 ML CUP PO PRN (15:46)
[2019-01-18] MEDS ORDERED: NA PHOS,M-B/NA PHOS,DI-BA 133 ML ENEMA RECTAL PRN (15:46)
[2019-01-18] MEDS ORDERED: IPRATROPIUM-ALBUTEROL 3 ML NEB INHALATION PRN (15:46)
[2019-01-18] MEDS ORDERED: ALBUTEROL NEBULIZED 2.5 MG/3 ML INHALATION PRN (15:46)
[2019-01-18 15:47] VITALS: BMI 26.6
--- NOTE | 2019-01-18 15:51 | P.HPIM ---
History of Present Illness H&P Date: 01/18/19 Chief Complaint: chest pain The patient is a 73-year-old male with a past medical history of coronary artery disease, diastolic CHF, hyperlipidemia, COPD, CVA/TIA, dementia , chronic respiratory failure, history of pulmonary embolism currently on anticoagulation with eliquis who presents to the ER from [facility] with chief complaint of chest pain. apparently the patient began having moderate nonradiating left sided chest discomfort described as pressure and burning with some associated shortness of breath, and diaphoresis and nausea, the patient reports having ongoing intermittent bouts of this associated with meals and is most often associated with burning with some occasional nausea and bloating. Patient denies any lower extremity swelling. In the ER the patient had a comprehensive workup EKG showed normal sinus rhythm without suggestion of any acute ischemia, troponin was negative less than 0.012, serum sodium 140 potassium 4.2 BUN 13 creatinine 0.83, WBC 10.8, hemoglobin 11 . Chest x-ray showed no evidence of acute pulmonary disease, the patient was given aspirin and Nitro-Bid which resolved his symptoms Review of Systems pertinent positives per HPI all other review of systems otherwise negative Past Medical History Past Medical History: Coronary Artery Disease (CAD), Heart Failure, COPD, CVA/TIA, Dementia, GERD/Reflux, Hyperlipidemia, Hypertension, Memory Impairment, Myocardial Infarction (ND), Osteoarthritis (OA), Pneumonia, Pulmonary Embolus (PE), Syncope Additional Past Medical History / Comment(s): Pt has been falling and has fallen 2 days in a row-since falls, has been complaining of bilateral foot pain and has had increased difficulty ambulating, legs "buckle", tremors, recent MRI showed 2 old fractures and a herniated disc which is compressing on a nerve-followed by Dr. 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 Last Myocardial Infarction Date:: unknown History of Any Multi-Drug Resistant Organisms: None Reported Past Surgical History: Appendectomy, Back Surgery Additional Past Surgical History / Comment(s): EGD with bx/colonoscopy with bx, bronchoscopy, low back surgery, PICC-since removed. Past Anesthesia/Blood Transfusion Reactions: No Reported Reaction Additional Past Anesthesia/Blood Transfusion Reaction / Comment(s): Pt has never received blood. Past Psychological History: Anxiety, Depression Smoking Status: Former smoker Past Alcohol Use History: None Reported Past Drug Use History: None Reported - Past Family History Father Family Medical History: Cancer Additional Family Medical History / Comment(s): Father had throat cancer. Mother Family Medical History: Cancer Additional Family Medical History / Comment(s): Mother had breast cancer. Medications and Allergies Home Medications Medication Instructions Recorded Confirmed Type Montelukast Sodium 10 mg PO DAILY@0800 06/14/15 01/18/19 History Oxybutynin Chloride [Ditropan] 5 mg PO BID@0800,1700 06/14/15 01/18/19 History Albuterol Sulfate [Proair Hfa] 1 - 2 puff INHALATION RT-Q4H PRN 10/14/15 01/18/19 History Escitalopram [Lexapro] 10 mg PO DAILY@0800 07/24/16 01/18/19 History Primidone [Mysoline] 100 mg PO HS@209906/14/17 01/18/19 History Donepezil [Aricept] 20 mg PO HS@209904/13/18 01/18/19 History Ipratropium-Albuterol Nebulize 3 ml INHALATION RT-QID PRN 04/13/18 01/18/19 History [Duoneb 0.5 mg-3 mg/3 ml Soln] Omeprazole 40 mg PO DAILY@0600 04/13/18 01/18/19 History Rivaroxaban [Xarelto] 20 mg PO DAILY@0800 04/13/18 01/18/19 History Furosemide [Lasix] 40 mg PO DAILY@0600 12/29/18 01/18/19 History rOPINIRole HCL [Requip] 1 mg PO TID@0600,1400,209912/29/18 01/18/19 History Ipratropium-Albuterol Nebulize 3 ml INHALATION RT-QID ampul.neb 01/04/19 01/18/19 Rx [Duoneb 0.5 mg-3 mg/3 ml Soln] Aspirin 81 mg PO DAILY@1700 01/18/19 01/18/19 History Atorvastatin [Lipitor] 40 mg PO HS@209901/18/19 01/18/19 History Bisacodyl 10 mg RECTAL DAILY PRN 01/18/19 01/18/19 History Budesonide/Formoterol Fumarate 1 puff INHALATION RT-BID 01/18/19 01/18/19 History [Symbicort 160-4.5 Mcg Inhaler] Divalproex Sodium [Depakote] 500 mg PO BID@0800,1700 01/18/19 01/18/19 History Gabapentin [Neurontin] 100 mg PO TID@0600,1400,2100 01/18/19 01/18/19 History Lactose-Reduced Food [Ensure Plus] 1 can PO BID@0800,1700 01/18/19 01/18/19 History Magnesium Hydroxide [Milk of 2,400 mg PO DAILY PRN 01/18/19 01/18/19 History Magnesia] Na Phos,M-B/Na Phos,Di-Ba [Fleet 133 ml RECTAL DAILY PRN 01/18/19 01/18/19 History Adult] oxyCODONE-APAP 10-325MG [Percocet 1 tab PO TID@0700,1100,1730 01/18/19 01/18/19 History 10-325 mg] predniSONE See Taper PO DAILY 01/18/19 01/18/19 History Allergies Allergy/AdvReac Type Severity Reaction Status Date / Time caffeine AdvReac Diarrhea Verified 01/18/19 10:03 Physical Exam Vitals: Vital Signs Temp Pulse Pulse Resp BP BP Pulse Ox 01/18/19 15:27 98.1 F 86 19 151/67 98 01/18/19 15:00 98.2 F 65 18 143/71 99 01/18/19 14:30 55 L 18 146/68 98 01/18/19 13:10 97.8 F 82 18 159/76 99 01/18/19 12:03 74 20 123/66 97 01/18/19 09:53 97.8 F 62 22 147/83 99 Intake and Output 01/18/19 01/18/19 01/18/19 06:59 14:59 22:59 Other: Weight 77.111 kg Constitutional: No acute distress, conversant, pleasant Eyes: Anicteric sclerae, moist conjunctiva, no lid-lag, PERRLA ENMT: NC/AT,Oropharynx clear, no erythema, exudates Neck:Supple, FROM, no masses, or JVD, No carotid bruits; No thyromegaly Lungs: Clear to auscultation, Clear to percussion, Normal respiratory effort, no accessory muscle use Cardiovascular: Heart regular in rate and rhythm, No murmurs, gallops, or rubs no peripheral edema Abdominal: Soft Nontender, nom distended, no guarding, no rebound or rigidity, Normoactive bowel sounds No hepatomegaly, No splenomegaly, No palpable mass No abdominal wall hernia noted Skin: Normal temperature, tone, texture, turgor, No induration No subcutaneous nodules, No rash, lesions, No ulcers Extremities:No digital cyanosis No clubbing, Pedal pulses intact and symmetrical Radial pulses intact and symmetrical Normal gait and station, No calf tenderness Psychiatric: Alert and oriented to person, place and time, Appropriate affect Intact judgement Neuro: Muscles Strength 5/5 in all 4 extremities, Sensation to light touch grossly present throughout, Cranial nerves II-XII grossly intact. No focal sensory deficits Results CBC & Chem 7: 01/18/19 10:00 01/18/19 10:00 Labs: Abnormal Lab Results - Last 24 Hours (Table) 01/18/19 01/18/19 Range/Units 10:00 10:00 WBC 10.8 H (3.8-10.6) k/uL RBC 3.68 L (4.30-5.90) m/uL Hgb 10.9 L (13.0-17.5) gm/dL Hct 35.3 L (39.0-53.0) % Creatine Kinase 38 L (55-170) U/L Total Protein 5.8 L (6.3-8.2) g/dL Albumin 3.3 L (3.5-5.0) g/dL Assessment and Plan (1) Atypical chest pain Current Visit: Yes Status: Acute Code(s): R07.89 - OTHER CHEST PAIN SNOMED Code(s): 788611449 (2) CAD (coronary artery disease) Current Visit: Yes Status: Acute Code(s): I25.10 - ATHSCL HEART DISEASE OF [place] CORONARY ARTERY W/O ANG PCTRS SNOMED Code(s): 19908342 (3) Hyperlipidemia Current Visit: Yes Status: Acute Code(s): E78.5 - HYPERLIPIDEMIA, UNSPECIFIED SNOMED Code(s): 77597167 (4) COPD (chronic obstructive pulmonary disease) Current Visit: Yes Status: Acute Code(s): J44.9 - CHRONIC OBSTRUCTIVE PULMONARY DISEASE, UNSPECIFIED SNOMED Code(s): 21359229 (5) GERD (gastroesophageal reflux disease) Current Visit: Yes Status: Acute Code(s): K21.9 - GASTRO-ESOPHAGEAL REFLUX DISEASE WITHOUT ESOPHAGITIS SNOMED Code(s): 418292497 Plan: Patient is placed in observation anticipate a less than 2 midnight stay with atypical chest pain with reported history of coronary disease with ND and ongoing risk factors, initial troponin and EKG negative for any suggestion of acute ischemia. We'll sequentially trend troponins and order echocardiogram, with plans for cardiology consultation. Patient's chronic medical issues appear to be stable at this time we'll resume his home medical regimen and continue to follow his clinical course and cardiology recommendations. CODE STATUS: DO NOT RESUSCITATE Discussed plan of care with: Patient ER physician Anticipate discharge : 1-2 days Time with Patient: Greater than 30
[2019-01-18] MEDS ORDERED: NON-FORMULARY DRUG (Lactose-Reduced Food [Ensure Plus] 1 CAN) PO SCH (17:00)
[2019-01-18] MEDS: DIVALPROEX 500 MG TABLET.DR PO SCH (17:09)
[2019-01-18] MEDS: oxyCODONE-APAP 10-325MG 1 EACH TAB PO SCH (17:09)
[2019-01-18] MEDS: OXYBUTYNIN CHLORIDE 5 MG TAB PO SCH (17:10)
[2019-01-18] MEDS: NITROGLYCERIN OINT 1 INCH/GM PACKET TOPICAL SCH ×2 (18:57→23:48)
[2019-01-18] MEDS: SYMBICORT 160-4.5 MCG INHALER INHALATION SCH (19:02)
[2019-01-18] MEDS: IPRATROPIUM-ALBUTEROL 3 ML NEB INHALATION SCH ×2 (19:03)
[2019-01-18] MEDS ORDERED: ATORVASTATIN 40 MG TAB PO SCH (21:00)
[2019-01-18] MEDS ORDERED: DONEPEZIL 10 MG TAB PO SCH (21:00)
[2019-01-18] MEDS ORDERED: PRIMIDONE 50 MG TAB PO SCH (21:00)
[2019-01-18] MEDS: GABAPENTIN 100 MG CAP PO SCH (21:39)
[2019-01-19 05:26] LABS: Cholesterol 95 mg/dL (<200); HDL Cholesterol 55 mg/dL (40-60); LDL Cholesterol,Calculated 22 mg/dL (0-99); Triglycerides 92 mg/dL (<150)
[2019-01-19] MEDS: NITROGLYCERIN OINT 1 INCH/GM PACKET TOPICAL SCH (05:37)
[2019-01-19] MEDS ORDERED: FUROSEMIDE 40 MG TAB PO SCH (06:00)
[2019-01-19] MEDS ORDERED: PANTOPRAZOLE 40 MG TABLET PO SCH (06:00)
[2019-01-19] MEDS: oxyCODONE-APAP 10-325MG 1 EACH TAB PO SCH ×2 (06:02→11:30)
[2019-01-19] MEDS: GABAPENTIN 100 MG CAP PO SCH (06:02)
[2019-01-19] MEDS ORDERED: MONTELUKAST 10 MG TAB PO SCH (08:00)
[2019-01-19] MEDS ORDERED: ESCITALOPRAM 10 MG TAB PO SCH (08:00)
[2019-01-19] MEDS ORDERED: RIVAROXABAN 20 MG TAB PO SCH (08:00)
[2019-01-19] MEDS: SYMBICORT 160-4.5 MCG INHALER INHALATION SCH (08:09)
[2019-01-19] MEDS: IPRATROPIUM-ALBUTEROL 3 ML NEB INHALATION SCH ×2 (08:09→12:14)
[2019-01-19] MEDS: OXYBUTYNIN CHLORIDE 5 MG TAB PO SCH (08:44)
[2019-01-19] MEDS: DIVALPROEX 500 MG TABLET.DR PO SCH (08:44)
[2019-01-19] MEDS ORDERED: ISOSORBIDE MONONITRATE ER 30 MG TAB.ER.24H PO SCH (09:00)
[2019-01-19] MEDS ORDERED: predniSONE 10 MG TAB PO SCH (09:00)
[2019-01-19] MEDS ORDERED: ASPIRIN 325 MG TAB PO SCH (09:00)
--- NOTE | 2019-01-19 09:05 | P.CRDCN ---
History of Present Illness Consult date: 01/19/19 Chief complaint: Chest pain History of present illness: This is a pleasant 73-year-old gentleman with a past medical history significant for underlying dementia, chronic diastolic congestive heart failure, chronic obstructive pulmonary disease, hypertension, dyslipidemia, and history of CVA, as well as history of PE, presented to the hospital complaining of chest discomfort. As a matter of fact the patient was brought from [facility]. The patient somewhat is poor historian. He described chest discomfort, in the mid of the chest, as a dull kind of feeling, without any radiation to the arm or neck or shoulders, and without any associated symptoms of shortness of breath, sweating, dizziness, heart racing, or syncope. The patient currently is chest pain-free. In terms off work up, the EKG showed sinus rhythm without sign ificant ST or T-wave abnormalities. The cardiac enzymes were checked and came in to be unremarkable. The chest x-ray did not show any acute abnormalities. Currently the patient is on oral anticoagulation for PE. The creatinine was within normal limits. The hemoglobin also was within normal limits. An echocardiogram from 2018 was performed and showed normal LV function with mild valvular abnormalities consistent of mild MR and mild TR. Past Medical History Past Medical History: Coronary Artery Disease (CAD), Heart Failure, COPD, CVA/TIA, Dementia, GERD/Reflux, Hyperlipidemia, Hypertension, Memory Impairment, Myocardial Infarction ([place]), Osteoarthritis (OA), Pneumonia, Pulmonary Embolus (PE), Syncope Additional Past Medical History / Comment(s): Pt has been falling and has fallen 2 days in a row-since falls, has been complaining of bilateral foot pain and has had increased difficulty ambulating, legs "buckle", tremors, recent MRI showed 2 old fractures and a herniated disc which is compressing on a nerve-followed by Dr. 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 Last Myocardial Infarction Date:: unknown History of Any Multi-Drug Resistant Organisms: None Reported Past Surgical History: Appendectomy, Back Surgery Additional Past Surgical History / Comment(s): EGD with bx/colonoscopy with bx, bronchoscopy, low back surgery, PICC-since removed. Past Anesthesia/Blood Transfusion Reactions: No Reported Reaction Additional Past Anesthesia/Blood Transfusion Reaction / Comment(s): Pt has never received blood. Past Psychological History: Anxiety, Depression Smoking Status: Former smoker Past Alcohol Use History: None Reported Past Drug Use History: None Reported - Past Family History Father Family Medical History: Cancer Additional Family Medical History / Comment(s): Father had throat cancer. Mother Family Medical History: Cancer Additional Family Medical History / Comment(s): Mother had breast cancer. Medications and Allergies Home Medications Medication Instructions Recorded Confirmed Type Montelukast Sodium 10 mg PO DAILY@0800 06/14/15 01/18/19 History Oxybutynin Chloride [Ditropan] 5 mg PO BID@0800,1700 06/14/15 01/18/19 History Albuterol Sulfate [Proair Hfa] 1 - 2 puff INHALATION RT-Q4H PRN 10/14/15 01/18/19 History Escitalopram [Lexapro] 10 mg PO DAILY@0800 07/24/16 01/18/19 History Primidone [Mysoline] 100 mg PO HS@2100 06/14/17 01/18/19 History Donepezil [Aricept] 20 mg PO HS@2100 04/13/18 01/18/19 History Ipratropium-Albuterol Nebulize 3 ml INHALATION RT-QID PRN 04/13/18 01/18/19 History [Duoneb 0.5 mg-3 mg/3 ml Soln] Omeprazole 40 mg PO DAILY@0600 04/13/18 01/18/19 History Rivaroxaban [Xarelto] 20 mg PO DAILY@0800 04/13/18 01/18/19 History Furosemide [Lasix] 40 mg PO DAILY@0600 12/29/18 01/18/19 History rOPINIRole HCL [Requip] 1 mg PO TID@0600,1400,2100 12/29/18 01/18/19 History Ipratropium-Albuterol Nebulize 3 ml INHALATION RT-QID ampul.neb 01/04/19 01/18/19 Rx [Duoneb 0.5 mg-3 mg/3 ml Soln] Aspirin 81 mg PO DAILY@1700 01/18/19 01/18/19 History Atorvastatin [Lipitor] 40 mg PO HS@2100 01/18/19 01/18/19 History Bisacodyl 10 mg RECTAL DAILY PRN 01/18/19 01/18/19 History Budesonide/Formoterol Fumarate 1 puff INHALATION RT-BID 01/18/19 01/18/19 History [Symbicort 160-4.5 Mcg Inhaler] Divalproex Sodium [Depakote] 500 mg PO BID@0800,1700 01/18/19 01/18/19 History Gabapentin [Neurontin] 100 mg PO TID@0600,1400,2100 01/18/19 01/18/19 History Lactose-Reduced Food [Ensure Plus] 1 can PO BID@0800,1700 01/18/19 01/18/19 History Magnesium Hydroxide [Milk of 2,400 mg PO DAILY PRN 01/18/19 01/18/19 History Magnesia] Na Phos,M-B/Na Phos,Di-Ba [Fleet 133 ml RECTAL DAILY PRN 01/18/19 01/18/19 History Adult] oxyCODONE-APAP 10-325MG [Percocet 1 tab PO TID@0700,1100,1730 01/18/19 01/18/19 History 10-325 mg] predniSONE See Taper PO DAILY 01/18/19 01/18/19 History Allergies Allergy/AdvReac Type Severity Reaction Status Date / Time caffeine AdvReac Diarrhea Verified 01/18/19 10:03 Physical Exam Vitals: Vital Signs Temp Pulse Pulse Pulse Pulse Resp BP 01/19/19 08:23 80 01/19/19 08:12 76 01/19/19 08:00 98.4 F 60 17 01/19/19 04:00 97.9 F 66 15 01/19/19 03:12 14 01/19/19 00:00 98.0 F 86 14 01/18/19 20:00 15 01/18/19 19:15 98.1 F 72 15 01/18/19 19:14 70 16 01/18/19 19:05 70 16 01/18/19 16:00 86 19 01/18/19 15:27 98.1 F 86 19 01/18/19 15:00 98.2 F 65 18 143/71 01/18/19 14:30 55 L 18 146/68 01/18/19 13:10 97.8 F 82 18 159/76 01/18/19 12:03 74 20 123/66 01/18/19 09:53 97.8 F 62 22 147/83 BP BP Pulse Ox 01/19/19 08:23 01/19/19 08:12 01/19/19 08:00 129/77 97 01/19/19 04:00 118/64 98 01/19/19 03:12 01/19/19 00:00 119/65 99 01/18/19 20:00 01/18/19 19:15 146/79 97 01/18/19 19:14 01/18/19 19:05 01/18/19 16:00 01/18/19 15:27 151/67 98 01/18/19 15:00 99 01/18/19 14:30 98 01/18/19 13:10 99 01/18/19 12:03 97 01/18/19 09:53 99 Intake and Output 01/18/19 01/19/19 01/19/19 22:59 06:59 14:59 Intake Total 180 Output Total 700 Balance 180 -700 Intake: Oral 180 Output: Urine 700 Other: Voiding Method Urinal Urinal # Voids 1 - Constitutional General appearance: no acute distress - Respiratory Respiratory: bilateral: CTA - Cardiovascular Rhythm: regular Heart sounds: normal: S1, S2 Abnormal Heart Sounds: systolic murmur Results 01/18/19 10:00 01/18/19 10:00 Cardiac Enzymes 01/18/19 01/18/19 01/18/19 Range/Units 10:00 10:00 15:32 AST 26 (17-59) U/L CK-MB (CK-2) 1.1 (0.0-2.4) ng/mL Troponin I <0.012 <0.012 (0.000-0.034) ng/mL 01/18/19 Range/Units 22:04 AST (17-59) U/L CK-MB (CK-2) (0.0-2.4) ng/mL Troponin I <0.012 (0.000-0.034) ng/mL Coagulation 01/18/19 Range/Units 10:00 PT 11.0 (9.0-12.0) sec APTT 27.6 (22.0-30.0) sec Lipids 01/18/19 Range/Units 10:00 Triglycerides 92 (<150) mg/dL Cholesterol 95 (<200) mg/dL HDL Cholesterol 55 (40-60) mg/dL CBC 01/18/19 Range/Units 10:00 WBC 10.8 H (3.8-10.6) k/uL RBC 3.68 L (4.30-5.90) m/uL Hgb 10.9 L (13.0-17.5) gm/dL Hct 35.3 L (39.0-53.0) % Plt Count 295 (150-450) k/uL Comprehensive Metabolic Panel 01/18/19 Range/Units 10:00 Sodium 140 (137-145) mmol/L Potassium 4.2 (3.5-5.1) mmol/L Chloride 104 (98-107) mmol/L Carbon Dioxide 30 (22-30) mmol/L BUN 13 (9-20) mg/dL Creatinine 0.83 (0.66-1.25) mg/dL Glucose 85 (74-99) mg/dL Calcium 8.7 (8.4-10.2) mg/dL AST 26 (17-59) U/L ALT 45 (21-72) U/L Alkaline Phosphatase 116 (38-126) U/L Total Protein 5.8 L (6.3-8.2) g/dL Albumin 3.3 L (3.5-5.0) g/dL Current Medications Generic Name Dose Route Start Last Admin Trade Name Freq PRN Reason Stop Dose Admin Albuterol Sulfate 2.5 mg 01/18/19 15:46 Ventolin Nebulized INHALATION RT-Q4H PRN Shortness Of Breath Albuterol/Ipratropium 3 ml 01/18/19 15:46 Duoneb 0.5 Mg-3 Mg/3 Ml Soln INHALATION RT-QID PRN Shortness Of Breath Albuterol/Ipratropium 3 ml 01/18/19 16:00 01/19/19 08:09 Duoneb 0.5 Mg-3 Mg/3 Ml Soln INHALATION 3 ml RT-QID ABDOULAYE Administration Aspirin 325 mg 01/19/19 09:00 01/19/19 08:44 Aspirin PO 325 mg DAILY ABDOULAYE Administration Atorvastatin Calcium 40 mg 01/18/19 21:00 01/18/19 21:39 Lipitor PO 40 mg HS@2100 ABDOULAYE Administration Bisacodyl 10 mg 01/18/19 15:46 Dulcolax RECTAL DAILY PRN Constipation Budesonide/Formoterol Fumarate 1 puff 01/18/19 20:00 01/19/19 08:09 Symbicort 160-4.5 Mcg Inhaler INHALATION 1 puff RT-BID ABDOULAYE Administration Divalproex Sodium 500 mg 01/18/19 17:00 01/19/19 08:44 Depakote PO 500 mg BID@0800,1700 ABDOULAYE Administration Donepezil HCl 20 mg 01/18/19 21:00 01/18/19 21:39 Aricept PO 20 mg HS@2100 ABDOULAYE Administration Escitalopram Oxalate 10 mg 01/19/19 08:00 01/19/19 08:44 Lexapro PO 10 mg DAILY@0800 ABDOULAYE Administration Furosemide 40 mg 01/19/19 06:00 01/19/19 06:02 Lasix PO 40 mg DAILY@0600 [facility] Administration Gabapentin 100 mg 01/18/19 21:00 01/19/19 06:02 Neurontin PO 100 mg TID@0600,1400,2100 [facility] Administration Isosorbide Mononitrate 30 mg 01/19/19 09:00 Imdur PO DAILY [facility] Magnesium Hydroxide 2,400 mg 01/18/19 15:46 Milk Of Magnesia PO DAILY PRN Constipation Montelukast Sodium 10 mg 01/19/19 08:00 01/19/19 08:44 Singulair PO 10 mg DAILY@0800 [facility] Administration Nitroglycerin 0.4 mg 01/18/19 13:15 Nitrostat SUBLINGUAL Q5M PRN Chest Pain Oxybutynin Chloride 5 mg 01/18/19 17:00 01/19/19 08:44 Ditropan PO 5 mg BID@0800,1700 [facility] Administration Oxycodone/Acetaminophen 1 each 01/18/19 17:30 01/19/19 06:02 Percocet 10-325 PO 1 each TID@0700,1100,1730 ABDOULAYE Administration Pantoprazole Sodium 40 mg 01/19/19 06:00 01/19/19 06:02 Protonix PO 40 mg DAILY@0600 [facility] Administration Prednisone 10 mg 01/19/19 09:00 01/19/19 08:44 PO 10 mg DAILY ABDOULAYE Administration Primidone 100 mg 01/18/19 21:00 01/18/19 21:39 Mysoline PO 100 mg HS@2100 ABDOULAYE Administration Rivaroxaban 20 mg 01/19/19 08:00 01/19/19 08:44 Xarelto PO 20 mg DAILY@0800 ABDOULAYE Administration Ropinirole HCl 1 mg 01/18/19 21:00 01/19/19 06:02 Requip PO 1 mg TID@0600,1400,2100 ABDOULAYE Administration Sodium Biphosphate/Sodium Phosphate 133 ml 01/18/19 15:46 Fleet Adult RECTAL DAILY PRN Constipation Sodium Chloride 10 ml 01/18/19 21:00 01/19/19 08:45 Saline Flush IV 10 ml BID ABDOULAYE Administration Intake and Output 01/18/19 01/19/19 01/19/19 22:59 06:59 14:59 Intake Total 180 Output Total 700 Balance 180 -700 Intake: Oral 180 Output: Urine 700 Other: Voiding Method Urinal Urinal # Voids 1 01/18/19 10:00 01/18/19 10:00 Assessment and Plan Assessment: Assessment #1 atypical chest discomfort. The patient seems to be chest pain-free at this point #2 history of chronic hypoxic respiratory failure on home oxygen #3 history of PE currently on oral anticoagulation #4 multiple comorbid conditions Plan #1 acute coronary event was ruled out. #2 PE is unlikely giving the patient chronic anticoagulation state #3 I would advise conservative medical approach at this point, giving the nature of the pain which is atypical and the absence of any chest pain at this point #3 I am going to add oral nitrates to the current medical regimen #4 from the cardiac standpoint overview, the patient can be discharged home Thank you for allowing us participate in his care
[2019-01-19 12:10] VITALS: BP 144/74; RESP 16; TEMP 98.2
[2019-01-19 12:26] VITALS: PULSE 78
--- NOTE | 2019-01-19 13:09 | DS ---
DISCHARGE SUMMARY DATE OF ADMISSION: 01/18/2019 DATE OF DISCHARGE: 01/19/2019 FINAL DIAGNOSES: 1. Anterior chest wall pain possibly exacerbation of gastroesophageal reflux disease. 2. Chronic obstructive pulmonary disease in an ex-smoker. 3. Moderate cognitive impairment from Alzheimer's dementia. 4. Gastroesophageal reflux disease. 5. Hyperlipidemia. 6. Essential hypertension. 7. Primary osteoarthritis. 8. Peripheral neuropathy, could be from prior alcoholism. 9. Chronic hypoxic respiratory failure on home oxygen 3 L. 10.Coronary artery disease, prior history of myocardial infarction. CONSULTATION: Dr. Herndon from Cardiology. HOSPITAL COURSE: This patient presented with chest pain, seen by Dr. Herndon from Cardiology; felt to be noncardiac. Troponins were negative. The patient, it felt like heartburn. Feeling asymptomatic. Today feeling well. On examination, temperature 98.2, pulse 82, respiration 16, blood pressure 140/74, pulse ox 97% on 3 L. LUNGS: Fair air entry. ABDOMEN: Soft, nontender. INVESTIGATION: Troponins are negative. Hemoglobin 10.9. DISCHARGE MEDICATIONS: 1. Singulair 10 mg p.o. daily. 2. Ditropan 5 mg p.o. b.i.d. 3. ProAir 1 or 2 puffs q.4 p.r.n. 4. Lexapro 10 mg p.o. daily. 5. Mysoline 100 mg p.o. q.h.s. 6. Aricept 20 mg p.o. q.h.s. 7. DuoNeb q.i.d. p.r.n. 8. Xarelto 20 mg p.o. daily. 9. Lasix 40 mg p.o. daily. 10.Requip 1 mg p.o. t.i.d. 11.DuoNeb q.i.d. 12.Aspirin 81 mg p.o. daily. 13.Lipitor 40 mg q.h.s. 14.Dulcolax 10 mg rectally daily p.r.n. 15.Symbicort 160/4.5 one puff b.i.d. 16.Depakote 500 mg p.o. b.i.d. 17.Neurontin 100 mg p.o. t.i.d. 18.Ensure Plus 1 can p.o. b.i.d. 19.Milk of magnesia 2400 mg p.o. daily p.r.n. 20.Adult Fleet 133 mL daily p.r.n. 21.Finish prednisone taper. 22.Prilosec 20 mg b.i.d. 23.Percocet 10 one tablet p.o. t.i.d. . DISPOSITION: [facility]. Follow up with Dr. Sutherland at the [facility]. Follow up with Cardiology in 10 days. MMODL / IJN: [id number] /
--- NOTE | 2019-01-20 13:47 | ECHOF ---
Referral Reason:chest pain MEASUREMENTS -------- HEIGHT: 170.2 cm WEIGHT: 77.1 kg BP: 118/64 RVIDd: 3.8 cm (< 3.3) IVSd: 1.0 cm (0.6 - 1.1) LVIDd: 2.9 cm (3.9 - 5.3) LVPWd: 1.3 cm (0.6 - 1.1) IVSs: 1.5 cm LVIDs: 1.5 cm LVPWs: 1.6 cm LAESV Index (A-L): 18.14 ml/m Ao Diam: 3.1 cm (2.0 - 3.7) AV Cusp: 1.6 cm (1.5 - 2.6) LA Diam: 3.3 cm (2.7 - 3.8) MV E Robin: 0.61 m/s MV DecT: 205 ms MV A Robin: 0.85 m/s MV E/A Ratio: 0.72 AR PHT: 426 ms RAP: 5.00 mmHg RVSP: 50.22 mmHg FINDINGS -------- Sinus rhythm. This was a technically difficult study with suboptimal views. The left ventricular size is normal. Left ventricular wall thickness is normal. Overall left vent ricular systolic function is normal with, an EF between 55 - 60 %. The right ventricle is mild to moderately enlarged. Normal LA size by volume 22+/-6 ml/m2. The right atrial size is normal. Lumason used Interatrial and interventricular septum intact. There is mild aortic regurgitation. Mild mitral annular calcification present. No mitral regurgitation. [id number] tricuspid regurgitation present. There is moderate pulmonary hypertension. The r ight ventricular systolic pressure, as measured by Doppler, is 50.22mmHg. The pulmonic valve was not well visualized. The aortic root size is normal. IVC Not well visulized. Echo free space indicative of a pericardial fat pad. CONCLUSIONS -------- 1. Sinus rhythm. 2. This was a technically difficult study with suboptimal views. 3. The left ventricular size is normal. 4. Left ventricular wall thickness is normal. 5. Overall left ventricular systolic function is normal with, an EF between 55 - 60 %. 6. The right ventricle is mild to moderately enlarged. 7. Normal LA size by volume 22+/-6 ml/m2. 8. The right atrial size is normal. 9. Lumason used 10. Interatrial and interventricular septum intact. 11. There is mild aortic regurgitation. 12. Mild mitral annular calcification present. 13. No mitral regurgitation. 14. Uqvd-pf-zhebjzvp tricuspid regurgitation present. 15. There is moderate pulmonary hypertension. 16. The right ventricular systolic pressure, as measured by Doppler, is 50.22mmHg. 17. The pulmonic valve was not well visualized. 18. The aortic root size is normal. 19. IVC Not well visulized. 20. Echo free space indicative of a pericardial fat pad. ONION TOPPER: Radha Trujillo RDCS
== END 2019-01-19 14:08 | disposition home or self-care (01) ==
LOC: EC 09:42 → 1SOBS 13:15
PROVIDERS: ADMIT Hospitalist; ATTEND Hospitalist
DX: R07.89 Other chest pain (principal); R61 Generalized hyperhidrosis; R14.0 Abdominal distension (gaseous); K21.9 Gastro-esophageal reflux disease without esophagitis; J44.9 Chronic obstructive pulmonary disease, unspecified; Z87.891 Personal history of nicotine dependence; G30.9 Alzheimer's disease, unspecified; F02.80 Dementia in other diseases classified elsewhere, unspecified severity, without behavioral disturbance, psychotic disturbance, mood disturbance, and anxiety; E78.5 Hyperlipidemia, unspecified; I10 Essential (primary) hypertension; M19.91 Primary osteoarthritis, unspecified site; G62.9 Polyneuropathy, unspecified; J96.11 Chronic respiratory failure with hypoxia; Z99.81 Dependence on supplemental oxygen; G89.29 Other chronic pain; M54.9 Dorsalgia, unspecified; F32.9 Major depressive disorder, single episode, unspecified; F41.9 Anxiety disorder, unspecified; N32.81 Overactive bladder; R25.1 Tremor, unspecified; I25.10 Atherosclerotic heart disease of native coronary artery without angina pectoris; I25.2 Old myocardial infarction; I11.0 Hypertensive heart disease with heart failure; I50.32 Chronic diastolic (congestive) heart failure; Z86.73 Personal history of transient ischemic attack (TIA), and cerebral infarction without residual deficits; Z86.711 Personal history of pulmonary embolism; Z87.01 Personal history of pneumonia (recurrent); Z79.899 Other long term (current) drug therapy; Z79.01 Long term (current) use of anticoagulants; Z79.82 Long term (current) use of aspirin; Z79.51 Long term (current) use of inhaled steroids; Z79.891 Long term (current) use of opiate analgesic; Z91.81 History of falling; R29.6 Repeated falls; Z91.018 Allergy to other foods; Z66 Do not resuscitate; Z80.8 Family history of malignant neoplasm of other organs or systems; Z80.3 Family history of malignant neoplasm of breast
CPT/HCPCS: 99285; 36415; 94640 ×4; 93005; 97162; 80061; 80053; 82550; 82553; 83735; 84484; 85025; 85610; 85730; 71046; G0378 ×2; C8929; J7512; Q9950; 93306

== ENCOUNTER 2021-11-24 16:48 | Inpatient (IN) | payer MEDICARE ==
[2021-11-24] MEDS ORDERED: NITROGLYCERIN OINT 1 INCH/GM PACKET TOPICAL STA (16:54)
[2021-11-24] MEDS ORDERED: FUROSEMIDE 10 MG/ML 4 ML VIAL IV STA (16:54)
--- NOTE | 2021-11-24 16:57 | ED ---
SOB HPI - General Stated Complaint: Difficulty Breathing, Hypertensive Time Seen by Provider: 11/24/21 16:50 Source: patient, RN notes reviewed - History of Present Illness Initial Comments: 76-year-old male brought in by EMS with complaints of 3 days of shortness of breath came progressively worse he was noted by paramedics to be him a straight evidence of CHF with rales and rhonchi he was given albuterol as well as nitroglycerin for elevated blood pressure and suspected CHF. His pressure did improve his breathing improved. He did she was very pale his color is improved. He denied chest pain to paramedics he did indicate he was having some discomfort when I questioned him. MD Complaint: shortness of breath - Related Data Home Medications Medication Instructions Recorded Confirmed Cholecalciferol [Vitamin D3 (125 125 mcg PO DAILY 11/24/21 11/24/21 Mcg = 5000 Iu)] Gabapentin [Neurontin] 600 mg PO TID 11/24/21 11/24/21 Rivaroxaban [Xarelto] 2.5 mg PO BID 11/24/21 11/24/21 oxyCODONE-APAP 10-325MG [Percocet 1 tab PO TID-W/MEALS 11/24/21 11/24/21 10-325 mg] predniSONE 10 mg PO DAILY 11/24/21 11/24/21 Allergies Allergy/AdvReac Type Severity Reaction Status Date / Time caffeine AdvReac Diarrhea Verified 11/24/21 18:34 Review of Systems ROS Statement: Those systems with pertinent positive or pertinent negative responses have been documented in the HPI. ROS Other: All systems not noted in ROS Statement are negative. Past Medical History Past Medical History: Coronary Artery Disease (CAD), Heart Failure, COPD, CVA/TIA, Dementia, GERD/Reflux, Hyperlipidemia, Hypertension, Memory Impairment, Myocardial Infarction ([place]), Osteoarthritis (OA), Pneumonia, Pulmonary Embolus (PE), Syncope Additional Past Medical History / Comment(s): Pt has been falling and has fallen 2 days in a row-since falls, has been complaining of bilateral foot pain and has had increased difficulty ambulating, legs "buckle", tremors, recent MRI showed 2 old fractures and a herniated disc which is compressing on a nerve-followed by Dr. Reed, chronic back pain, neuropathy in one leg (neri cannot recall laterality), chronic COPD, home oxygen at 3L/NC ATC, possibly past MIs/EKG, tia,hemorrhoids, small hiatal hernia, overactive bladder, recovering alcoholic- last drank 2016. Last Myocardial Infarction Date:: unknown History of Any Multi-Drug Resistant Organisms: None Reported Past Surgical History: Appendectomy, Back Surgery Additional Past Surgical History / Comment(s): EGD with bx/colonoscopy with bx, bronchoscopy, low back surgery, PICC-since removed. Past Anesthesia/Blood Transfusion Reactions: No Reported Reaction Additional Past Anesthesia/Blood Transfusion Reaction / Comment(s): Pt has never received blood. Past Psychological History: Anxiety, Depression Past Alcohol Use History: None Reported Past Drug Use History: None Reported - Past Family History Father Family Medical History: Cancer Additional Family Medical History / Comment(s): Father had throat cancer. Mother Family Medical History: Cancer Additional Family Medical History / Comment(s): Mother had breast cancer. General Exam - General Exam Comments Initial Comments: This is a well-developed well-nourished awake alert oriented times 3 male General appearance: alert, anxious, in distress Head exam: Present: atraumatic, normocephalic, normal inspection Eye exam: Present: normal appearance, PERRL, EOMI. Absent: scleral icterus, conjunctival injection, periorbital swelling ENT exam: Present: normal exam, mucous membranes moist Neck exam: Present: normal inspection, full ROM, other. Absent: tenderness, meningismus, lymphadenopathy Respiratory exam: Present: respiratory distress, wheezes, rales, rhonchi (ALLERGY or bruits), chest wall tenderness (Is palpation of the left costal sternal margin no step-off or crepitation), accessory muscle use, decreased breath sounds. Absent: stridor Cardiovascular Exam: Present: regular rate, tachycardia. Absent: systolic murmur, diastolic murmur, rubs, gallop, clicks GI/Abdominal exam: Present: soft, normal bowel sounds. Absent: distended, tenderness, guarding, rebound, rigid Extremities exam: Present: normal inspection, full ROM, normal capillary refill. Absent: tenderness, pedal edema, joint swelling, calf tenderness Back exam: Present: normal inspection Neurological exam: Present: alert, oriented X3, CN II-XII intact Psychiatric exam: Present: normal affect, normal mood Skin exam: Present: warm, dry, intact, normal color. Absent: rash Course Vital Signs 11/24/21 11/24/21 11/24/21 16:51 17:35 18:55 Temperature 98.7 F Pulse Rate 158 H 107 H Respiratory 24 26 H 18 Rate Blood Pressure 105/52 87/52 O2 Sat by Pulse 96 95 Oximetry 11/24/21 20:00 Temperature Pulse Rate 109 H Respiratory 26 H Rate Blood Pressure 97/52 O2 Sat by Pulse 95 Oximetry - Reevaluation(s) Reevaluation #1: 11/24/21 20:08 Reevaluation the patient after the Lopressor given shows improvement of his heart rate he states he is feeling somewhat better. Reevaluation #2: 11/24/21 20:10 Repeat EKG after the patient did receive IV fluids and Lopressor shows sinus tachycardia rate 112. Interval 140 QRS duration 82 daily since QTC 303/[address]-T wave changes some artifact present Medical Decision Making - Medical Decision Making I did discuss findings with the patient family patient did get improvement with swelling of his heart rate improvement of his blood pressure after IV hydration and Lopressor. I did discuss the case with Dr. Girard. Elevated lactic acid likely secondary to poor perfusion secondary to viral depletion. Patient did respond to IV fluids - Lab Data Result diagrams: 11/24/21 17:16 11/24/21 17:16 Lab Results 11/24/21 11/24/21 11/24/21 Range/Units 17:16 17:16 17:16 WBC 14.2 H (3.8-10.6) k/uL RBC 4.61 (4.30-5.90) m/uL Hgb 15.0 (13.0-17.5) gm/dL Hct 46.2 (39.0-53.0) % MCV 100.2 H (80.0-100.0) fL MCH 32.5 (25.0-35.0) pg MCHC 32.4 (31.0-37.0) g/dL RDW 13.2 (11.5-15.5) % Plt Count 288 (150-450) k/uL MPV 7.1 Neutrophils % 84 % Lymphocytes % 14 % Monocytes % 1 % Eosinophils % 1 % Basophils % 0 % Neutrophils # 11.9 H (1.3-7.7) k/uL Lymphocytes # 1.9 (1.0-4.8) k/uL Monocytes # 0.1 (0-1.0) k/uL Eosinophils # 0.1 (0-0.7) k/uL Basophils # 0.1 (0-0.2) k/uL Manual Slide Review Performed Toxic Vacuolation Present RBC Morphology Normal PT 10.9 (9.0-12.0) sec INR 1.0 (<1.2) APTT 22.5 (22.0-30.0) sec D-Dimer 0.80 H (<0.60) mg/L FEU Sodium 139 (137-145) mmol/L Potassium 4.2 (3.5-5.1) mmol/L Chloride 105 (98-107) mmol/L Carbon Dioxide 27 (22-30) mmol/L Anion Gap 7 mmol/L BUN 15 (9-20) mg/dL Creatinine 0.96 (0.66-1.25) mg/dL Est GFR (CKD-EPI)AfAm 88 (>60 ml/min/1.73 sqM) Est GFR (CKD-EPI)NonAf 77 (>60 ml/min/1.73 sqM) Glucose 126 H (74-99) mg/dL Lactic Ac Sepsis Rflx Plasma Lactic Acid Paco (0.7-2.0) mmol/L Calcium 9.7 (8.4-10.2) mg/dL Magnesium 1.6 (1.6-2.3) mg/dL Total Bilirubin 1.0 (0.2-1.3) mg/dL AST 36 (17-59) U/L ALT 34 (4-49) U/L Alkaline Phosphatase 68 (38-126) U/L Troponin I (0.000-0.034) ng/mL NT-Pro-B Natriuret Pep pg/mL Total Protein 6.5 (6.3-8.2) g/dL Albumin 3.7 (3.5-5.0) g/dL 11/24/21 11/24/21 11/24/21 Range/Units 17:16 17:16 17:16 WBC (3.8-10.6) k/uL RBC (4.30-5.90) m/uL Hgb (13.0-17.5) gm/dL Hct (39.0-53.0) % MCV (80.0-100.0) fL MCH (25.0-35.0) pg MCHC (31.0-37.0) g/dL RDW (11.5-15.5) % Plt Count (150-450) k/uL MPV Neutrophils % % Lymphocytes % % Monocytes % % Eosinophils % % Basophils % % Neutrophils # (1.3-7.7) k/uL Lymphocytes # (1.0-4.8) k/uL Monocytes # (0-1.0) k/uL Eosinophils # (0-0.7) k/uL Basophils # (0-0.2) k/uL Manual Slide Review Toxic Vacuolation RBC Morphology PT (9.0-12.0) sec INR (<1.2) APTT (22.0-30.0) sec D-Dimer (<0.60) mg/L FEU Sodium (137-145) mmol/L Potassium (3.5-5.1) mmol/L Chloride (98-107) mmol/L Carbon Dioxide (22-30) mmol/L Anion Gap mmol/L BUN (9-20) mg/dL Creatinine (0.66-1.25) mg/dL Est GFR (CKD-EPI)AfAm (>60 ml/min/1.73 sqM) Est GFR (CKD-EPI)NonAf (>60 ml/min/1.73 sqM) Glucose (74-99) mg/dL Lactic Ac Sepsis Rflx Plasma Lactic Acid Paco 4.3 H* (0.7-2.0) mmol/L Calcium (8.4-10.2) mg/dL Magnesium (1.6-2.3) mg/dL Total Bilirubin (0.2-1.3) mg/dL AST (17-59) U/L ALT (4-49) U/L Alkaline Phosphatase (38-126) U/L Troponin I <0.012 (0.000-0.034) ng/mL NT-Pro-B Natriuret Pep 183 pg/mL Total Protein (6.3-8.2) g/dL Albumin (3.5-5.0) g/dL 11/24/21 Range/Units 17:46 WBC (3.8-10.6) k/uL RBC (4.30-5.90) m/uL Hgb (13.0-17.5) gm/dL Hct (39.0-53.0) % MCV (80.0-100.0) fL MCH (25.0-35.0) pg MCHC (31.0-37.0) g/dL RDW (11.5-15.5) % Plt Count (150-450) k/uL MPV Neutrophils % % Lymphocytes % % Monocytes % % Eosinophils % % Basophils % % Neutrophils # (1.3-7.7) k/uL Lymphocytes # (1.0-4.8) k/uL Monocytes # (0-1.0) k/uL Eosinophils # (0-0.7) k/uL Basophils # (0-0.2) k/uL Manual Slide Review Toxic Vacuolation RBC Morphology PT (9.0-12.0) sec INR (<1.2) APTT (22.0-30.0) sec D-Dimer (<0.60) mg/L FEU Sodium (137-145) mmol/L Potassium (3.5-5.1) mmol/L Chloride (98-107) mmol/L Carbon Dioxide (22-30) mmol/L Anion Gap mmol/L BUN (9-20) mg/dL Creatinine (0.66-1.25) mg/dL Est GFR (CKD-EPI)AfAm (>60 ml/min/1.73 sqM) Est GFR (CKD-EPI)NonAf (>60 ml/min/1.73 sqM) Glucose (74-99) mg/dL Lactic Ac Sepsis Rflx Y Plasma Lactic Acid Paco (0.7-2.0) mmol/L Calcium (8.4-10.2) mg/dL Magnesium (1.6-2.3) mg/dL Total Bilirubin (0.2-1.3) mg/dL AST (17-59) U/L ALT (4-49) U/L Alkaline Phosphatase (38-126) U/L Troponin I (0.000-0.034) ng/mL NT-Pro-B Natriuret Pep pg/mL Total Protein (6.3-8.2) g/dL Albumin (3.5-5.0) g/dL - EKG Data -: EKG Interpreted by Me EKG Comments: Tachycardia with short OK interval occasional PVCs question possible atrial flutter rate was 157 OK interval 118 QRS duration 80 QT since QTC 268/356 evidence a rate related changes - Radiology Data Radiology results: report reviewed (Imaging reviewed evidence of left upper lower lobe infiltrate.), image reviewed Critical Care Time Critical Care Time: Yes Total Critical Care Time: 45 Critical Care Time: Critical care time including initial presentation with history physical discussed with paramedics on arrival labs x-rays multiple reevaluation of the patient review of old charting was available discussed with the patient family regarding the findings discussion with the main physician admission orders and documentation of the above Disposition Clinical Impression: Pneumonia, COPD with exacerbation, Hypotensive episode, Tachycardia, Dehydration, Lactic acidosis Disposition: ADMITTED IP TO THIS HOSP Condition: Fair Referrals: Errol Henderson MD [Primary Care Provider] - 1-2 days Decision Date: 11/24/21 Decision Time: 20:00
[2021-11-24] MEDS ORDERED: METOPROLOL TARTRATE 5 MG/5 ML VIAL IVP STA (17:14)
[2021-11-24 17:26] LABS: Basophils # (A) 0.1 k/uL (0-0.2); Basophils % (A) 0 %; Eosinophils # (A) 0.1 k/uL (0-0.7); Eosinophils % (A) 1 %; HCT 46.2 % (39.0-53.0); Lymphocytes # (A) 1.9 k/uL (1.0-4.8); Lymphocytes % (A) 14 %; MCH 32.5 pg (25.0-35.0); MCHC 32.4 g/dL (31.0-37.0); MCV 100.2 fL (80.0-100.0); Mean Platelet Volume 7.1; Monocytes # (A) 0.1 k/uL (0-1.0); Monocytes % (A) 1 %; Neutrophils # (A) 11.9 k/uL (1.3-7.7); Neutrophils % (A) 84 %; Platelet Count 288 k/uL (150-450); RBC 4.61 m/uL (4.30-5.90); RDW 13.2 % (11.5-15.5); WBC 14.2 k/uL (3.8-10.6)
[2021-11-24 17:38] LABS: Albumin 3.7 g/dL (3.5-5.0); Calcium 9.7 mg/dL (8.4-10.2); Magnesium 1.6 mg/dL (1.6-2.3); Potassium 4.2 mmol/L (3.5-5.1); Total Protein 6.5 g/dL (6.3-8.2)
[2021-11-24 17:52] LABS: Partial Thromboplastin Time 22.5 sec (22.0-30.0); Prothrombin Time 10.9 sec (9.0-12.0)
[2021-11-24 17:57] LABS: RBC Morphology Normal; Toxic Vacuolation Present
--- NOTE | 2021-11-24 18:09 | XR ---
EXAMINATION TYPE: XR chest 2V DATE OF EXAM: 11/24/2021 5:46 PM COMPARISON: 01/18/2019 TECHNIQUE: XR chest 2V Frontal view of the chest. CLINICAL INDICATION:Male, 76 years old with history of difficulty breathing; FINDINGS: Lungs/Pleura: Scattered airspace opacities within the left mid and lower lung.There is increased luce ncy of the right lung apex. Pulmonary vascularity: Unremarkable. Heart/mediastinum: Cardiomediastinal silhouette is unremarkable. Musculoskeletal: No acute osseous pathology. IMPRESSION: 1. Left mid and lower lung scattered airspace opacities, correlate for pneumonia. 2. COPD changes.
[2021-11-24] MEDS ORDERED: SODIUM CHLORIDE 0.9% 1,000 ML IV STA ×2 (19:02)
[2021-11-24] MEDS ORDERED: cefTRIAXone IN SWFI 1,000 MG/10 ML SYRINGE IVP STA (19:03)
[2021-11-24] MEDS ORDERED: IPRATROPIUM-ALBUTEROL 3 ML NEB INHALATION STA (19:03)
[2021-11-24] MEDS ORDERED: methylPREDNISolone SOD SUCCI 125 MG/2 ML VIAL IV STA (19:03)
[2021-11-24] MEDS ORDERED: IPRATROPIUM-ALBUTEROL 3 ML NEB INHALATION PRN (20:15)
[2021-11-24] MEDS ORDERED: AZITHROMYCIN 500 MG in SODIUM CHLORIDE 0.9% 250 ML IVPB STA (20:15)
[2021-11-24] MEDS ORDERED: PNEUMONIA PROTOCOL UTILIZED 1 EACH MISC PO PRN (20:15)
[2021-11-24] MEDS ORDERED: SODIUM CHLORIDE 0.9% 1,000 ML IV ONE (21:45)
[2021-11-24] MEDS: GABAPENTIN 300 MG CAP PO SCH (22:33)
[2021-11-24] MEDS: RIVAROXABAN 2.5 MG TABLET PO SCH (23:06)
--- NOTE | 2021-11-25 00:33 | P.HPIM ---
History of Present Illness H&P Date: 11/24/21 Chief Complaint: progressive SOB 76 year old male with advanced COPD on home oxygen patient comes in with worsening SOB over the past couple days, describes pleuritic chest pain, and worsening SOB, with non productive cough, and feeling congested. he denies active smoking, denies any fevers or chills, but he was feeling increasingly weak and tired. he lives with his daughter who takes care of him, denies any recent travel or sick contacts. he denies otherwise, any naus ea, vomiting, abd pain , changes in his bowel or urinary habits. denies any GI bleeding. in the ED, he was found to have increase oxygen requirement, tachycardia, and leukocytosis and lactic acidosis. patient given IVF hydaration and started on IV antibiotics, CXR showed left mid and lower lung opacities. Review of Systems Pertinent positives as noted in HPI. All other systems were reviewed and are negative Past Medical History Past Medical History: Coronary Artery Disease (CAD), Heart Failure, COPD, CVA/TIA, Dementia, GERD/Reflux, Hyperlipidemia, Hypertension, Memory Impairment, Myocardial Infarction ([place]), Osteoarthritis (OA), Pneumonia, Pulmonary Embolus (PE), Syncope Additional Past Medical History / Comment(s): chronic COPD, home oxygen at 3L/NC ATC, possibly past MIs/EKG, tia,hemorrhoids, small hiatal hernia, overactive bladder, 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 Last Myocardial Infarction Date:: unknown History of Any Multi-Drug Resistant Organisms: None Reported Past Surgical History: Appendectomy, Back Surgery Additional Past Surgical History / Comment(s): EGD with bx/colonoscopy with bx, bronchoscopy, low back surgery, PICC-since removed. Past Anesthesia/Blood Transfusion Reactions: No Reported Reaction Additional Past Anesthesia/Blood Transfusion Reaction / Comment(s): Pt has never received blood. Past Psychological History: Anxiety, Depression Past Alcohol Use History: None Reported Past Drug Use History: None Reported - Past Family History Father Family Medical History: Cancer Additional Family Medical History / Comment(s): Father had throat cancer. Mother Family Medical History: Cancer Additional Family Medical History / Comment(s): Mother had breast cancer. Medications and Allergies Home Medications Medication Instructions Recorded Confirmed Type Cholecalciferol [Vitamin D3 (125 125 mcg PO DAILY 11/24/21 11/24/21 History Mcg = 5000 Iu)] Gabapentin [Neurontin] 600 mg PO TID 11/24/21 11/24/21 History Rivaroxaban [Xarelto] 2.5 mg PO BID 11/24/21 11/24/21 History oxyCODONE-APAP 10-325MG [Percocet 1 tab PO TID-W/MEALS 11/24/21 11/24/21 History 10-325 mg] predniSONE 10 mg PO DAILY 11/24/21 11/24/21 History Allergies Allergy/AdvReac Type Severity Reaction Status Date / Time caffeine AdvReac Diarrhea Verified 11/24/21 18:34 Physical Exam Vitals: Vital Signs Temp Pulse Resp BP Pulse Ox 11/24/21 23:03 101 H 22 93 L 11/24/21 22:39 104 H 24 125/58 94 L 11/24/21 22:07 104 H 25 H 113/70 11/24/21 21:38 111 H 24 79/34 11/24/21 21:37 109 H 24 91/64 973 H 11/24/21 20:52 109 H 11/24/21 20:42 106 H 11/24/21 20:15 105 H 20 97/52 97 11/24/21 20:00 109 H 26 H 97/52 95 11/24/21 18:55 107 H 18 87/52 95 11/24/21 17:35 26 H 11/24/21 16:51 98.7 F 158 H 24 105/52 96 Intake and Output 11/24/21 11/24/21 11/25/21 14:59 22:59 06:59 Other: Weight 68.039 kg Constitutional: No acute distress, conversant, pleasant Eyes: Anicteric sclerae, moist conjunctiva, Pupils equal round reactive to light ENMT: NC/AT Oropharynx clear, no erythema, or exudates Neck: Supple, no masses, or JVD No carotid bruits No thyromegaly Lungs: diminished breath sounds throughout Clear to percussion usinig accessory muscles of respiration Cardiovascular: Heart tachycardia No murmurs, gallops, or rubs No peripheral edema Abdominal: Soft Nontender, no guarding, rebound or rigidity Abdomen moving with respiration Normoactive bowel sounds No hepatomegaly, No splenomegaly No palpable mass No abdominal wall hernia noted Skin: Normal temperature, tone, texture, turgor No induration No subcutaneous nodules No rash, lesions No ulcers Extremities: No digital cyanosis severe fungal nail infection of the hands with thickening of the nails Pedal pulses intact and symmetrical Radial pulses intact and symmetrical No calf tenderness Psychiatric: Alert and oriented to person, place Neuro Muscles Strength 3-4/5 in all 4 extremities Sensation to light touch grossly present throughout Cranial nerves II-XII grossly intact No focal sensory deficits Lymphatics: no palpable cervical or supraclavicular , or inguinal lymph nodes Results CBC & Chem 7: 11/24/21 17:16 11/24/21 17:16 Labs: Abnormal Lab Results - Last 24 Hours (Table) 11/24/21 11/24/21 11/24/21 Range/Units 00:03 17:16 17:16 WBC 14.2 H (3.8-10.6) k/uL MCV 100.2 H (80.0-100.0) fL Neutrophils # 11.9 H (1.3-7.7) k/uL D-Dimer 0.80 H (<0.60) mg/L FEU Glucose (74-99) mg/dL Plasma Lactic Acid Paco 2.2 H* (0.7-2.0) mmol/L 11/24/21 11/24/21 11/24/21 Range/Units 17:16 17:16 20:24 WBC (3.8-10.6) k/uL MCV (80.0-100.0) fL Neutrophils # (1.3-7.7) k/uL D-Dimer (<0.60) mg/L FEU Glucose 126 H (74-99) mg/dL Plasma Lactic Acid Paco 4.3 H* 2.7 H* (0.7-2.0) mmol/L Assessment and Plan Assessment: sepsis community acquired pneumonia acute copd exacerbation lactic acidosis plan follow up cultures empiric IV antibiotics with rocephine and azithro IVF hydration with saline urine legionella antigen covid test negative supportive care monitor vital signs systemic steroids resume inhalers supplemental oxygen as needed Duoneb PRN chronic conditions dementia hypertension COPD resume home meds h/o alcohol abuse fall precaution s full code DVT PPX on eliquis anticipated length of stay > 2 midnights
[2021-11-25] MEDS: methylPREDNISolone SOD SUCCI 125 MG/2 ML VIAL IV SCH ×2 (01:59→09:28)
[2021-11-25] MEDS ORDERED: MORPHINE SULFATE 2 MG/ML SYRINGE IM STA (02:21)
[2021-11-25] MEDS: oxyCODONE-APAP 10-325MG 1 EACH TAB PO SCH ×3 (08:44→17:07)
--- NOTE | 2021-11-25 09:11 | XR ---
EXAMINATION TYPE: XR chest 1V portable DATE OF EXAM: 11/25/2021 COMPARISON: 11/24/2021 INDICATION: Short of breath TECHNIQUE: Single frontal view of the chest is obtained. FINDINGS: The heart size is normal. The pulmonary vasculature is normal. Left peripheral lung infiltrates are present. There may be some improvement from comparison. IMPRESSION: 1. Improving left lung infiltrates
[2021-11-25 09:16] LABS: HCT 42.8 % (39.0-53.0); HGB 13.4 gm/dL (13.0-17.5); Hypochromasia Slight; MCH 32.7 pg (25.0-35.0); MCHC 31.2 g/dL (31.0-37.0); MCV 104.7 fL (80.0-100.0); Macrocytosis Slight; Mean Platelet Volume 7.1; Platelet Count 265 k/uL (150-450); RBC 4.09 m/uL (4.30-5.90); RDW 13.1 % (11.5-15.5); WBC 18.6 k/uL (3.8-10.6)
[2021-11-25] MEDS: AZITHROMYCIN 500 MG TAB PO SCH (09:28)
[2021-11-25 09:30] LABS: Calcium 8.5 mg/dL (8.4-10.2); Potassium 4.7 mmol/L (3.5-5.1)
[2021-11-25] MEDS: CHOLECALCIFEROL 125 MCG (5000 IU) TABLET PO SCH (09:30)
[2021-11-25] MEDS: GABAPENTIN 300 MG CAP PO SCH ×3 (09:30→21:33)
[2021-11-25] MEDS: RIVAROXABAN 2.5 MG TABLET PO SCH ×2 (09:30→21:32)
--- NOTE | 2021-11-25 09:58 | P.PN ---
Subjective Patient was examined at bedside today not complaining of any worsening symptomatology. He does continue to complain of pleuritic chest pain that gets worse on inspiration and on palpation. The pain does not radiate to his left arm or to his jaw. Shortness of breath is also slightly improving compared to yesterday. Currently on 4 L nasal cannula bedside. Objective - Vital Signs Vital signs: Vital Signs Temp 97.5 F L 11/25/21 07:40 Pulse 127 H 11/25/21 07:49 Resp 20 11/25/21 07:49 BP 148/80 11/25/21 07:40 Pulse Ox 98 11/25/21 07:40 Intake & Output 11/24/21 11/25/21 11/25/21 18:59 06:59 18:59 Intake Total 220 240 Output Total 250 Balance -30 240 Weight 68.039 kg 68.039 kg Intake: Intake, IV Titration 100 Amount Sodium Chloride 0.9% 1, 100 000 ml @ 130 mls/hr IV . Q7H42M STA Rx#:[id number] Oral 120 240 Output: Urine 250 - Exam Constitutional: No acute distress, conversant, pleasant Eyes: Anicteric sclerae, moist conjunctiva, Pupils equal round reactive to light ENMT: NC/AT Oropharynx clear, no erythema, or exudates Neck: Supple, no masses, or JVD No carotid bruits No thyromegaly Lungs: diminished breath sounds throughout Clear to percussion Some wheezing appreciated Cardiovascular: Heart tachycardia No murmurs, gallops, or rubs No peripheral edema Abdominal: Soft Nontender, no guarding, rebound or rigidity Abdomen moving with respiration Normoactive bowel sounds No hepatomegaly, No splenomegaly No palpable mass No abdominal wall hernia noted Skin: Normal temperature, tone, texture, turgor No induration No subcutaneous nodules No rash, lesions No ulcers Extremities: No digital cyanosis severe fungal nail infection of the hands with thickening of the nails Pedal pulses intact and symmetrical Radial pulses intact and symmetrical No calf tenderness Psychiatric: Alert and oriented to person, place - Labs CBC & Chem 7: 11/25/21 08:57 11/25/21 08:57 Labs: Abnormal Lab Results - Last 24 Hours (Table) 11/24/21 11/24/21 11/24/21 Range/Units 00:03 17:16 17:16 WBC 14.2 H (3.8-10.6) k/uL RBC (4.30-5.90) m/uL MCV 100.2 H (80.0-100.0) fL Neutrophils # 11.9 H (1.3-7.7) k/uL D-Dimer 0.80 H (<0.60) mg/L FEU BUN (9-20) mg/dL Creatinine (0.66-1.25) mg/dL Glucose (74-99) mg/dL Plasma Lactic Acid Paco 2.2 H* (0.7-2.0) mmol/L 11/24/21 11/24/21 11/24/21 Range/Units 17:16 17:16 20:24 WBC (3.8-10.6) k/uL RBC (4.30-5.90) m/uL MCV (80.0-100.0) fL Neutrophils # (1.3-7.7) k/uL D-Dimer (<0.60) mg/L FEU BUN (9-20) mg/dL Creatinine (0.66-1.25) mg/dL Glucose 126 H (74-99) mg/dL Plasma Lactic Acid Paco 4.3 H* 2.7 H* (0.7-2.0) mmol/L 11/25/21 11/25/21 11/25/21 Range/Units 03:31 08:57 08:57 WBC 18.6 H (3.8-10.6) k/uL RBC 4.09 L (4.30-5.90) m/uL MCV 104.7 H (80.0-100.0) fL Neutrophils # (1.3-7.7) k/uL D-Dimer (<0.60) mg/L FEU BUN 22 H (9-20) mg/dL Creatinine 1.27 H (0.66-1.25) mg/dL Glucose 194 H (74-99) mg/dL Plasma Lactic Acid Paco 3.1 H* (0.7-2.0) mmol/L 11/25/21 Range/Units 08:57 WBC (3.8-10.6) k/uL RBC (4.30-5.90) m/uL MCV (80.0-100.0) fL Neutrophils # (1.3-7.7) k/uL D-Dimer (<0.60) mg/L FEU BUN (9-20) mg/dL Creatinine (0.66-1.25) mg/dL Glucose (74-99) mg/dL Plasma Lactic Acid Paco 5.8 H* (0.7-2.0) mmol/L Assessment and Plan Assessment: Assessment: #1 sepsis secondary to community acquired pneumonia #2 acute hypoxic respiratory distress secondary to COPD exacerbation secondary to above #3 lactic acidosis secondary to sepsis #4 essential hypertension #5 hyperlipidemia #6 history of pulmonary embolism on anticoagulation #7 acute kidney injury secondary to ATN/sepsis Plan: -Admit to medicine for close monitoring -Aspiration/fall precaution -Continue with IV Rocephin and azithromycin to complete 7 days -We'll de-escalate methyl prednisone to 40 mg twice a day -Chest x-ray tomorrow -Lactic acid elevated continue trend every 4 hours until normalized -Gentle hydration 100 mL an hour until lactic acid resolved. -Monitor creatinine level daily avoid nephrotoxic agents. -DVT prophylaxis onset alto -Disposition anticipate discharge in the next 24-48 hours pending respiratory status.
[2021-11-25] MEDS ORDERED: SODIUM CHLORIDE 0.9% 500 ML 500 ML IV ONE (10:35)
[2021-11-25 10:46] LABS: Band Neutrophils % 21 %; Lymphocytes # (M) 0.56 k/uL (1.0-4.8); Metamyelocytes # (M) 1.67 k/uL (0); Metamyelocytes % 9 %; Monocytes # (M) 0.19 k/uL (0-1.0); Myelocytes # (M) 0.56 k/uL (0); Myelocytes % 3 %; Neutrophils % (M) 64 %; Nucleated Red Blood Cells 0 /100 WBC (0-0); Total Cells Counted 200; Toxic Vacuolation Present
[2021-11-25] MEDS: IPRATROPIUM-ALBUTEROL 3 ML NEB INHALATION SCH ×3 (11:55→19:47)
[2021-11-25] MEDS: SODIUM CHLORIDE 0.9% 1,000 ML IV SCH ×2 (12:25→18:59)
--- NOTE | 2021-11-25 12:41 | P.CNPUL ---
History of Present Illness Consult date: 11/25/21 Requesting physician: Johnathan Lazo Reason for consult: dyspnea Chief complaint: Shortness of breath History of present illness: This a pleasant 76-year-old male patient with a known history of coronary artery disease congestive heart failure, T CVA/TIA, dementia, hypertension, hyperlipidemia, pulmonary embolism and maintained on Xarelto., He also has a history of chronic obstructive pulmonary disease with FEV1 value of 49% of predicted. He had a previous heavy smoking tobacco history but quit back in 2016. He presented here to the emergency room yesterday with a three-day history of increasing shortness of breath. He was also found to be in a tachycardic. He received Lopressor in the emergency department. Chest x-ray revealed scattered airspace opacities within the left mid and lower lung hernandes. Background COPD changes. White count 18.6. Hemoglobin 13.4. Sodium 139. P otassium 4.7. BUN 22. Creatinine 1.27. Glucose 194. Lactic acid 3.0. Troponin negative times one. ProBNP 183. Coronavirus PCR not detected. Legioinella antigen negative. Blood cultures reveal no growth. He's been initiated on ceftriaxone and azithromycin along with bronchodilators and IV solu Medrol. Anticoagulated with Xarelto. Review of Systems REVIEW OF SYSTEMS: CONSTITUTIONAL: Denies any recent significant weight loss or weight gain. EYES: Denies change in vision. EARS, NOSE, MOUTH, THROAT: Denies headaches, denies sore throat. CARDIOVASCULAR: Denies chest pain, palpitations or syncopal episodes. RESPIRATORY: Positive for shortness of breath, cough, congestion no hemoptysis. GASTROINTESTINAL: Denies change in appetite, denies abdominal pain GENITOURINARY: Denies hematuria, denies infections. MUSKULOSKELETAL: Denies pain, denies swelling. INTEGUMENTARY: Denies rash, denies eczema. NEUROLOGICAL: Denies recent memory loss, no recent seizure activity. PSYCHIATRIC: Denies anxiety, denies depression. HEMATOLOGIC/LYMPHATIC: Denies anemia, denies enlarged lymph nodes. Past Medical History Past Medical History: Coronary Artery Disease (CAD), Heart Failure, COPD (Severe COPD , FEV1 is 37-41%), CVA/TIA, Dementia, GERD/Reflux, Hyperlipidemia, Hypertension, Memory Impairment, Myocardial Infarction ([place]), Osteoarthritis (OA), Pneumonia, Pulmonary Embolus (PE), Syncope Additional Past Medical History / Comment(s): chronic COPD, home oxygen at 3L/NC ATC, possibly past MIs/EKG, tia,hemorrhoids, small hiatal hernia, overactive bladder, 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 Last Myocardial Infarction Date:: unknown History of Any Multi-Drug Resistant Organisms: None Reported Past Surgical History: Appendectomy, Back Surgery Additional Past Surgical History / Comment(s): EGD with bx/colonoscopy with bx, bronchoscopy, low back surgery, PICC-since removed. Past Anesthesia/Blood Transfusion Reactions: No Reported Reaction Additional Past Anesthesia/Blood Transfusion Reaction / Comment(s): Pt has never received blood. Past Psychological History: Anxiety, Depression Smoking Status: Former smoker (quit 10 years ago, he has 55 py smoking) Past Alcohol Use History: None Reported Past Drug Use History: None Reported - Past Family History Father Family Medical History: Cancer Additional Family Medical History / Comment(s): Father had throat cancer. Mother Family Medical History: Cancer Additional Family Medical History / Comment(s): Mother had breast cancer. Medications and Allergies Home Medications Medication Instructions Recorded Confirmed Type Cholecalciferol [Vitamin D3 (125 125 mcg PO DAILY 11/24/21 11/24/21 History Mcg = 5000 Iu)] Gabapentin [Neurontin] 600 mg PO TID 11/24/21 11/24/21 History Rivaroxaban [Xarelto] 2.5 mg PO BID 11/24/21 11/24/21 History oxyCODONE-APAP 10-325MG [Percocet 1 tab PO TID-W/MEALS 11/24/21 11/24/21 History 10-325 mg] predniSONE 10 mg PO DAILY 11/24/21 11/24/21 History Allergies Allergy/AdvReac Type Severity Reaction Status Date / Time caffeine AdvReac Diarrhea Verified 11/24/21 18:34 Physical Exam Vitals: Vital Signs Temp Pulse Pulse Resp BP BP BP 11/25/21 12:24 97.8 F 109 H 18 123/63 11/25/21 12:06 120 H 20 11/25/21 11:57 11/25/21 11:55 117 H 20 11/25/21 11:34 97.8 F 100 16 112/56 11/25/21 07:49 127 H 20 11/25/21 07:40 97.5 F L 101 H 20 148/80 11/25/21 07:39 129 H 20 11/25/21 03:48 11/25/21 03:41 92 22 136/70 11/25/21 01:42 104 H 22 123/62 11/25/21 00:00 109 H 20 104/61 11/24/21 23:03 101 H 22 11/24/21 22:39 104 H 24 125/58 11/24/21 22:07 104 H 25 H 113/70 11/24/21 21:38 111 H 24 79/34 11/24/21 21:37 109 H 24 91/64 11/24/21 20:52 109 H 11/24/21 20:42 106 H 11/24/21 20:36 98.4 F 90 22 142/72 11/24/21 20:15 105 H 20 97/52 11/24/21 20:00 109 H 26 H 97/52 11/24/21 18:55 107 H 18 87/52 11/24/21 17:35 26 H 11/24/21 16:51 98.7 F 158 H 24 105/52 Pulse Ox 11/25/21 12:24 95 11/25/21 12:06 11/25/21 11:57 97 11/25/21 11:55 11/25/21 11:34 94 L 11/25/21 07:49 11/25/21 07:40 98 11/25/21 07:39 97 11/25/21 03:48 94 L 11/25/21 03:41 95 11/25/21 01:42 95 11/25/21 00:00 95 11/24/21 23:03 93 L 11/24/21 22:39 94 L 11/24/21 22:07 11/24/21 21:38 11/24/21 21:37 973 H 11/24/21 20:52 11/24/21 20:42 11/24/21 20:36 94 L 11/24/21 20:15 97 11/24/21 20:00 95 11/24/21 18:55 95 11/24/21 17:35 11/24/21 16:51 96 Intake and Output 11/24/21 11/25/21 11/25/21 22:59 06:59 14:59 Intake Total 220 240 Output Total 250 Balance -30 240 Intake: Intake, IV Titration 100 Amount Sodium Chloride 0.9% 1, 100 000 ml @ 130 mls/hr IV . Q7H42M STA Rx#:[id number] Oral 120 240 Output: Urine 250 Other: Voiding Method Urinal Weight 68.039 kg GENERAL EXAM: Alert, pleasant, confused 76-year-old male patient, on 5 L nasal cannula, comfortable in no apparent distress. HEAD: Normocephalic. EYES: Normal reaction of pupils, equal size. NOSE: Clear with pink turbinates. THROAT: No erythema or exudates. NECK: No masses, no JVD. CHEST: No chest wall deformity. LUNGS: Equal air entry with scattered rhonchi more so on the left lung. CVS: S1 and S2 normal with no audible murmur, regular rhythm. ABDOMEN: No hepatosplenomegaly, normal bowel sounds, no guarding or rigidity. SPINE: No scoliosis or deformity SKIN: No rashes CENTRAL NERVOUS SYSTEM: No focal deficits, tone is normal in all 4 extremities. EXTREMITIES: There is no peripheral edema. No clubbing, no cyanosis. Peripheral pulses are intact. Results - Laboratory Findings CBC and BMP: 11/25/21 08:57 11/25/21 08:57 PT/INR, D-dimer PT 10.9 sec (9.0-12.0) 11/24/21 17:16 INR 1.0 (<1.2) 11/24/21 17:16 D-Dimer 0.80 mg/L FEU (<0.60) H 11/24/21 17:16 Abnormal lab findings: Abnormal Labs 11/24/21 11/24/21 11/24/21 00:03 17:16 17:16 WBC 14.2 H RBC MCV 100.2 H Neutrophils # 11.9 H Neutrophils # (Manual) Lymphocytes # (Manual) Metamyelocytes # (Man) Myelocytes # (Manual) D-Dimer 0.80 H BUN Creatinine Glucose Plasma Lactic Acid Paco 2.2 H* 11/24/21 11/24/21 11/24/21 17:16 17:16 20:24 WBC RBC MCV Neutrophils # Neutrophils # (Manual) Lymphocytes # (Manual) Metamyelocytes # (Man) Myelocytes # (Manual) D-Dimer BUN Creatinine Glucose 126 H Plasma Lactic Acid Paco 4.3 H* 2.7 H* 11/25/21 11/25/21 11/25/21 03:31 08:57 08:57 WBC 18.6 H RBC 4.09 L MCV 104.7 H Neutrophils # Neutrophils # (Manual) 15.80 H Lymphocytes # (Manual) 0.56 L Metamyelocytes # (Man) 1.67 H Myelocytes # (Manual) 0.56 H D-Dimer BUN 22 H Creatinine 1.27 H Glucose 194 H Plasma Lactic Acid Paco 3.1 H* 11/25/21 11/25/21 08:57 11:37 WBC RBC MCV Neutrophils # Neutrophils # (Manual) Lymphocytes # (Manual) Metamyelocytes # (Man) Myelocytes # (Manual) D-Dimer BUN Creatinine Glucose Plasma Lactic Acid Paco 5.8 H* 3.0 H* - Diagnostic Findings Chest x-ray: image reviewed Assessment and Plan Assessment: 1 Acute on chronic hypoxic respiratory failure secondary to an acute community- acquired pneumonia mainly in the left lung 2 Acute exacerbation of chronic obstructive pulmonary disease secondary to above . FEV1 value of 41% of predicted 3 History of pulmonary embolism, anticoagulated with Xarelto 4 Hypertension 5 History of congestive heart failure 6 Chronic thoracic back pain 7 Benign prosthetic hyperplasia 8 Lumbar spondylosis with myelopathy 9 Dementia Plan: The patient was seen and evaluated Chest x-ray and labs reviewed Continue ceftriaxone and azithromycin for now Check a pro-calcitonin Continue DuoNeb inhalations, IV Solu-Medrol We will continue to follow and make further recommendations based on his clinical status I have personally seen and examined the patient, performed the documentation and the assessment and plan as written. Number of minutes spent on the visit: 20. Plan: I have personally seen and examined the patient and reviewed the documentation. I performed a joint evaluation with the nurse practitioner in this evaluation was done more than 30 minutes. I fully agree with the documentation above and the plan of care. This is a joint evaluation that was done along with interstitial practitioner. The patient has a left lung pneumonia along with COPD exacerbation. We'll collect sputum. We'll continue current antibiotic c overage. Continue bronchodilators. Continue steroids.
[2021-11-25] MEDS ORDERED: VANCOMYCIN IV PER PHARMACY 1 EACH MISC MISCELLANE PRN (18:06)
[2021-11-25] MEDS ORDERED: VANCOMYCIN 1,250 MG in SODIUM CHLORIDE 0.9% 250 ML IVPB SCH (19:00)
[2021-11-25] MEDS: methylPREDNISolone SOD SUCCI 40 MG/ML 1 ML VIAL IV SCH (21:31)
[2021-11-25] MEDS: PIPERACILLIN-TAZOBACTAM 3.375 GM in SODIUM CHLORIDE 0.9% 100 ML IVPB SCH (22:30)
[2021-11-26] MEDS ORDERED: IPRATROPIUM-ALBUTEROL 3 ML NEB INHALATION ONE (04:45)
[2021-11-26] MEDS ORDERED: AMIODARONE 360 MG in DEXTROSE 5% IN WATER 200 ML IV ONE ×2 (04:46)
[2021-11-26] MEDS ORDERED: DEXTROSE 5% IN WATER 100 ML with AMIODARONE 150 MG IV ONE (04:46)
[2021-11-26] MEDS: oxyCODONE-APAP 10-325MG 1 EACH TAB PO SCH ×3 (06:18→17:24)
[2021-11-26] MEDS: SODIUM CHLORIDE 0.9% 1,000 ML IV SCH (06:19)
[2021-11-26] MEDS: PIPERACILLIN-TAZOBACTAM 3.375 GM in SODIUM CHLORIDE 0.9% 100 ML IVPB SCH ×3 (06:20→21:11)
[2021-11-26 07:41] LABS: Calcium 8.5 mg/dL (8.4-10.2); Potassium 4.5 mmol/L (3.5-5.1)
[2021-11-26 07:52] LABS: HCT 38.7 % (39.0-53.0); HGB 11.8 gm/dL (13.0-17.5); MCH 31.5 pg (25.0-35.0); MCHC 30.6 g/dL (31.0-37.0); Macrocytosis Slight; Platelet Count 248 k/uL (150-450); RBC 3.75 m/uL (4.30-5.90); RDW 13.2 % (11.5-15.5); WBC 23.5 k/uL (3.8-10.6)
[2021-11-26] MEDS: CHOLECALCIFEROL 125 MCG (5000 IU) TABLET PO SCH (08:22)
[2021-11-26] MEDS: RIVAROXABAN 2.5 MG TABLET PO SCH ×2 (08:22→21:10)
[2021-11-26] MEDS: methylPREDNISolone SOD SUCCI 40 MG/ML 1 ML VIAL IV SCH (08:22)
[2021-11-26] MEDS: THIAMINE 100 MG TAB PO SCH (08:22)
[2021-11-26] MEDS: GABAPENTIN 300 MG CAP PO SCH ×3 (08:22→21:10)
[2021-11-26] MEDS: AZITHROMYCIN 500 MG TAB PO SCH (08:22)
--- NOTE | 2021-11-26 08:41 | XR ---
EXAMINATION TYPE: XR chest 1V portable DATE OF EXAM: 11/26/2021 CLINICAL HISTORY: Difficulty breathing progress study. TECHNIQUE: Single AP portable upright view of the chest is obtained. COMPARISON: Chest x-ray from one day earlier and older studies. FINDINGS: Osseous structures are intact. Cardiac silhouette size is stable and within normal limits with atherosclerotic change aortic knob. Reticular and reticulonodular increased opacities left mid t o lower lung greatest in the periphery and right medial lung redemonstrated. Background Chronic emphy sematous change noted. IMPRESSION: Persistent left mid and lower lung and medial right basilar reticulonodular and reticular edema and/or infiltrates. Correlate for possible atypical infection. No significant change from one day earlier.
[2021-11-26] MEDS: IPRATROPIUM 0.5 MG/2.5 ML NEBU INHALATION SCH ×4 (09:16→20:06)
[2021-11-26 09:29] LABS: Band Neutrophils % 8 %; Lymphocytes # (M) 0.47 k/uL (1.0-4.8); Metamyelocytes # (M) 0.47 k/uL (0); Metamyelocytes % 2 %; Monocytes # (M) 0.71 k/uL (0-1.0); Neutrophils % (M) 87 %; Nucleated Red Blood Cells 0 /100 WBC (0-0); Total Cells Counted 200
--- NOTE | 2021-11-26 10:24 | CDI ---
Documentation Clarification Form Date: 11/26/2021 10:07:06 AM From: Anika Briones CCS, CCDS Admit Date: 11/24/2021 08:15:00 PM Patient Name: Ricki Hess Visit Number: [id number] Discharge Date: ATTENTION: The Clinical Documentation Specialists (CDI) and [facility] Coding Staff appreciate your assistance in clarifying documentation. Please respond to the clarification below the line at the bottom and electronically sign. The CDI & [facility] Coding staff will review the response and follow-up if needed. Please note: Queries are made part of the Legal Health Record. If you have any questions, please contact the author of this message via ITS. Dr. William Tony: CHF & Heart Failure without further specificity is documented in the following documentation: Per the 11/24 ED Note: 76-year-old male brought in by EMS with complaints of 3 days of shortness of breath came progressively worse he was noted by paramedics ( ) evidence of CHF with rales and rhonchi he was given albuterol as well as nitroglycerin for elevated blood pressure and suspected CHF. Heart Failure is documented in the patient's Past Medical History in the 11/24 ED Note, the 11/24 H/P and in the 11/25 Pulmonary Consult, Cardiology is not consulted. Additional information regarding the Acuity & Type of CHF is requested. History/Risk Factors per the 11/24 H/P: CAD, Heart Failure, COPD on Home O2 3Lnc atc, TIA, Dementia, GERD, Hyperlipidemia, Hypertension, Memory Impairment, [place], Osteoarthritis, Pneumonia, PE, Recovering Alcoholic. Clinical Indicators: Presented to the ED on 11/24 via EMS with SOB, Difficulty Breathing & Hypertension. Admit with Pneumonia, COPD with Exacerbation, Hypotensive Episode, Tachycardia, Dehydration, Lactic Acidosis. 11/24 VS: T 98.7, P 158, R 25, 26 (sob, labored, cough, Persistent, talks in phrases); BP 105/52, 87/52; PO 96 8L ventimask, BMI: 25.0 11/24 LAB: WBC 14.2, Neutrophils 11.9; D Dimer 0.80; Glucose 126, Lactic Acid 2.2, 4.3, 2.7; COVID negative (11/25) 11/24 CXR: Left mid & lower lung scattered airspace opacities, correlate for pneumonia. COPD changes. 11/25 CXR: Improving left lung infiltrates. 11/26 CXR: Persistent left mid and lower lung and medial right basilar reticulonodular and reticular edema and/or infiltrates. Correlate for possible atypical infection. No significant change from one day earlier. Most Recent ECHO 01/19/2019: Technically difficult study, Left ventricular systolic function is normal w/EF 55-60%. Right ventricle is mild-moderately enlarged, Mild AR, No MR. Mild-mod TR, Mod pulmonary hypertension. Treatment 11/24: EKG, O2: 8: ventimask, IV Lasix 40 mg x1, Nitropaste x1, IV Lopressor 5 mg x1, IV Na Cl 1,000 mls @ 999 mls/hr q1H, IV Na Cl 1,000 mls @ 130 mls/hr q7H, INH Duoneb 3ml x1, IV Rocephin 2,000 mg x1, IV Solumedrol 125 mg x1, IV Azithromycin 250 mls @ 250 mls/hr x1, IV Na Cl 1,000 mls @ 999 mls/hr q1H Home meds: Prednisone, Xarelto, Vit D3, Percocet, Neurontin In your professional opinion, can you please clarify the Type & Acuity of CHF if known? [ ] Acute Diastolic Heart Failure [ ] Chronic Diastolic Heart Failure [ ] Acute on Chronic Diastolic Heart Failure [ ] Other Heart Failure, please specify: [ ] Other, please specify: [ ] Unable to determine (Template Last Revised: September 2020) 12/03: Query response documented in 12/02 Cardiology Consult: Chronic diastolic heart failure. (CDS: YOMAIRA) VENANCIOD
[2021-11-26] MEDS ORDERED: AMIODARONE 450 MG in DEXTROSE 5% IN WATER 250 ML IV SCH ×2 (11:00)
[2021-11-26] MEDS: methylPREDNISolone SOD SUCCI 125 MG/2 ML VIAL IV SCH ×2 (13:16→20:12)
--- NOTE | 2021-11-26 13:18 | P.PN ---
Subjective Patient was evaluated at bedside today continues to complains of shortness of breath however slightly improved compared to yesterday. Continues to be on oxygen to maintain saturations above 90%. Case discussed with RN. Denies any chest pain, fever or chills. Objective - Vital Signs Vital signs: Vital Signs Temp 98.2 F 11/26/21 12:00 Pulse 109 H 11/26/21 12:00 Resp 18 11/26/21 12:00 BP 139/68 11/26/21 12:00 Pulse Ox 98 11/26/21 12:00 Intake & Output 11/25/21 11/26/21 11/26/21 18:59 06:59 18:59 Intake Total 480 240 Output Total 200 300 200 Balance 280 -300 40 Intake: Oral 480 240 Output: Urine 200 300 200 Other: Voiding Method Urinal Urinal Urinal # Voids 1 - Exam Constitutional: No acute distress, conversant, pleasant Eyes: Anicteric sclerae, moist conjunctiva, Pupils equal round reactive to light ENMT: NC/AT Oropharynx clear, no erythema, or exudates Neck: Supple, no masses, or JVD No carotid bruits No thyromegaly Lungs: diminished breath sounds throughout Diffuse wheezing appreciated bilaterally Cardiovascular: Heart tachycardia No murmurs, gallops, or rubs No peripheral edema Abdominal: Soft Nontender, no guarding, rebound or rigidity Abdomen moving with respiration Normoactive bowel sounds No hepatomegaly, No splenomegaly No palpable mass No abdominal wall hernia noted Skin: Normal temperature, tone, texture, turgor No induration No subcutaneous nodules No rash, lesions No ulcers Extremities: No digital cyanosis severe fungal nail infection of the hands with thickening of the nails Pedal pulses intact and symmetrical Radial pulses intact and symmetrical No calf tenderness Psychiatric: Alert and oriented to person, place - Labs CBC & Chem 7: 11/26/21 06:48 11/26/21 06:48 Labs: Abnormal Lab Results - Last 24 Hours (Table) 11/25/21 11/25/21 11/25/21 Range/Units 08:57 15:02 18:05 WBC (3.8-10.6) k/uL RBC (4.30-5.90) m/uL Hgb (13.0-17.5) gm/dL Hct (39.0-53.0) % MCV (80.0-100.0) fL MCHC (31.0-37.0) g/dL Neutrophils # (Manual) (1.3-7.7) k/uL Lymphocytes # (Manual) (1.0-4.8) k/uL Metamyelocytes # (Man) (0) k/uL Sodium (137-145) mmol/L BUN (9-20) mg/dL Glucose (74-99) mg/dL Plasma Lactic Acid Paco 3.6 H* 4.8 H* (0.7-2.0) mmol/L Procalcitonin 18.40 H (0.02-0.09) ng/mL 11/25/21 11/26/21 11/26/21 Range/Units 20:52 06:48 06:48 WBC 23.5 H (3.8-10.6) k/uL RBC 3.75 L (4.30-5.90) m/uL Hgb 11.8 L (13.0-17.5) gm/dL Hct 38.7 L (39.0-53.0) % MCV 103.0 H (80.0-100.0) fL MCHC 30.6 L (31.0-37.0) g/dL Neutrophils # (Manual) 22.30 H (1.3-7.7) k/uL Lymphocytes # (Manual) 0.47 L (1.0-4.8) k/uL Metamyelocytes # (Man) 0.47 H (0) k/uL Sodium 135 L (137-145) mmol/L BUN 32 H (9-20) mg/dL Glucose 199 H (74-99) mg/dL Plasma Lactic Acid Paco 4.3 H* (0.7-2.0) mmol/L Procalcitonin (0.02-0.09) ng/mL 11/26/21 Range/Units 06:48 WBC (3.8-10.6) k/uL RBC (4.30-5.90) m/uL Hgb (13.0-17.5) gm/dL Hct (39.0-53.0) % MCV (80.0-100.0) fL MCHC (31.0-37.0) g/dL Neutrophils # (Manual) (1.3-7.7) k/uL Lymphocytes # (Manual) (1.0-4.8) k/uL Metamyelocytes # (Man) (0) k/uL Sodium (137-145) mmol/L BUN (9-20) mg/dL Glucose (74-99) mg/dL Plasma Lactic Acid Paco 2.5 H* (0.7-2.0) mmol/L Procalcitonin (0.02-0.09) ng/mL Microbiology - Last 24 Hours (Table) 11/26/21 04:53 Sputum Culture - Preliminary Sputum 11/24/21 19:30 Blood Culture Gram Stain - Preliminary Blood Blood Culture - Preliminary Streptococcus pneumoniae 11/24/21 20:07 Blood Culture Gram Stain - Preliminary Blood Blood Culture - Preliminary Streptococcus pneumoniae 11/24/21 17:15 Blood Culture Gram Stain - Preliminary Blood Blood Culture - Preliminary Streptococcus pneumoniae 11/24/21 17:00 Blood Culture Gram Stain - Preliminary Blood Blood Culture - Preliminary Streptococcus pneumoniae 11/24/21 17:15 Blood Culture - Final Blood 11/24/21 17:00 Blood Culture - Final Blood 11/24/21 20:07 Blood Culture - Final Blood 11/24/21 20:07 Blood Culture - Final Blood Assessment and Plan Assessment: Assessment: #1 sepsis secondary to community acquired pneumonia #2 acute hypoxic respiratory distress secondary to COPD exacerbation secondary to above #3 lactic acidosis secondary to sepsis #4 bacteremia secondary to strep pneumo #5 hyperlipidemia #6 history of pulmonary embolism on anticoagulation #7 acute kidney injury secondary to ATN/sepsis Plan: -Admit to medicine for close monitoring -Aspiration/fall precaution -Repeat blood cultures -Antibiotic coverage was escalated to Zosyn and vancomycin we will de-escalate based on cultures. Vancomycin discontinued. Continue with azithromycin for atypical coverage. -Continue with IV methylprednisolone patient is wheezing diffusely -Chest x-ray reviewed -Lactic acid elevated continue trend every 4 hours until normalized slowly trending down -Continue with very gentle hydration and avoid fluid overload. -Monitor creatinine level daily avoid nephrotoxic agents. -DVT prophylaxis Xarelto -Disposition anticipate discharge in the next 24-48 hours pending respiratory status.
--- NOTE | 2021-11-26 14:16 | P.PN ---
Subjective Progress Note Date: 11/26/21 This a pleasant 76-year-old male patient with a known history of coronary artery disease congestive heart failure, T CVA/TIA, dementia, hypertension, hyperlipidemia, pulmonary embolism and maintained on Xarelto., He also has a history of chronic obstructive pulmonary disease with FEV1 value of 49% of pred icted. He had a previous heavy smoking tobacco history but quit back in 2016. He presented here to the emergency room yesterday with a three-day history of increasing shortness of breath. He was also found to be in a tachycardic. He received Lopressor in the emergency department. Chest x-ray revealed scattered airspace opacities within the left mid and lower lung hernandes. Background COPD changes. White count 18.6. Hemoglobin 13.4. Sodium 139. Potassium 4.7. BUN 22. Creatinine 1.27. Glucose 194. Lactic acid 3.0. Troponin negative times one. ProBNP 183. Coronavirus PCR not detected. Legioinella antigen negative. Blood cultures reveal no growth. He's been initiated on ceftriaxone and azithromycin along with bronchodilators and IV solu Medrol. Anticoagulated with Xarelto. On 11/26/2021 patient seen in follow-up on selective care unit, he states he is still coughing, feels congested, at times she is able to bring up some whitish colored sputum. Sputum specimen has been sent and results are pending, patient remains on Zosyn for antibiotic coverage, his been afebrile overnight, pro- calcitonin is significantly elevated at 18.4,multiple blood cultures were positive for strep pneumonia. Repeat blood culture has been ordered and pending at this time. Lung sounds reveal diffuse wheezes, rhonchi. Patient has an over [id number] smoking history, in remission for last 10 years, patient has advanced COPD he is only on home oxygen at 3-4 L and maintenance dose prednisone 10 mg daily. On IV Solu-Medrol 40 mg every 12 hours, DuoNeb 4 times a day. Currently amiodarone drip has been discontinued, patient is currently in sinus mechanism with a controlled rate. He is on Xarelto 2.5 mg BID. Objective - Vital Signs Vital signs: Vital Signs Temp 98.0 F 11/26/21 07:40 Pulse 110 H 11/26/21 09:25 Resp 20 11/26/21 07:40 BP 132/74 11/26/21 07:40 Pulse Ox 92 L 11/26/21 07:40 Intake & Output 11/25/21 11/26/21 11/26/21 18:59 06:59 18:59 Intake Total 480 Output Total 200 300 Balance 280 -300 Intake: Oral 480 Output: Urine 200 300 Other: Voiding Method Urinal Urinal - Exam GENERAL EXAM: Alert, pleasant, 76-year-old white male, on 3 L of oxygen pulse ox is 92%, comfortable in no apparent distress. HEAD: Normocephalic/atraumatic. EYES: Normal reaction of pupils, equal size. Conjunctiva pink, sclera white. NOSE: Clear with pink turbinates. THROAT: No erythema or exudates. NECK: No masses, no JVD, no thyroid enlargement, no adenopathy. CHEST: No chest wall deformity. Symmetrical expansion. LUNGS: Equal air entry with diffuse wheezes and rhonchi CVS: Regular rate and rhythm, normal S1 and S2, no gallops, no murmurs, no rubs ABDOMEN: Soft, nontender. No hepatosplenomegaly, normal bowel sounds, no guarding or rigidity. EXTREMITIES: No clubbing, no edema, no cyanosis, 2+ pulses and upper and lower extremities. MUSCULOSKELETAL: Muscle strength and tone normal. SPINE: No scoliosis or deformity SKIN: No rashes CENTRAL NERVOUS SYSTEM: Alert and oriented -3. No focal deficits, tone is normal in all 4 extremities. PSYCHIATRIC: Alert and oriented -3. Appropriate affect. Intact judgment and insight. - Labs CBC & Chem 7: 11/27/21 07:23 11/27/21 07:23 Labs: Abnormal Lab Results - Last 24 Hours (Table) 11/25/21 11/25/21 11/25/21 Range/Units 08:57 08:57 11:37 WBC 18.6 H (3.8-10.6) k/uL RBC 4.09 L (4.30-5.90) m/uL Hgb (13.0-17.5) gm/dL Hct (39.0-53.0) % MCV 104.7 H (80.0-100.0) fL MCHC (31.0-37.0) g/dL Neutrophils # (Manual) 15.80 H (1.3-7.7) k/uL Lymphocytes # (Manual) 0.56 L (1.0-4.8) k/uL Metamyelocytes # (Man) 1.67 H (0) k/uL Myelocytes # (Manual) 0.56 H (0) k/uL Sodium (137-145) mmol/L BUN (9-20) mg/dL Glucose (74-99) mg/dL Plasma Lactic Acid Paco 3.0 H* (0.7-2.0) mmol/L Procalcitonin 18.40 H (0.02-0.09) ng/mL 11/25/21 11/25/21 11/25/21 Range/Units 15:02 18:05 20:52 WBC (3.8-10.6) k/uL RBC (4.30-5.90) m/uL Hgb (13.0-17.5) gm/dL Hct (39.0-53.0) % MCV (80.0-100.0) fL MCHC (31.0-37.0) g/dL Neutrophils # (Manual) (1.3-7.7) k/uL Lymphocytes # (Manual) (1.0-4.8) k/uL Metamyelocytes # (Man) (0) k/uL Myelocytes # (Manual) (0) k/uL Sodium (137-145) mmol/L BUN (9-20) mg/dL Glucose (74-99) mg/dL Plasma Lactic Acid Paco 3.6 H* 4.8 H* 4.3 H* (0.7-2.0) mmol/L Procalcitonin (0.02-0.09) ng/mL 11/26/21 11/26/21 11/26/21 Range/Units 06:48 06:48 06:48 WBC 23.5 H (3.8-10.6) k/uL RBC 3.75 L (4.30-5.90) m/uL Hgb 11.8 L (13.0-17.5) gm/dL Hct 38.7 L (39.0-53.0) % MCV 103.0 H (80.0-100.0) fL MCHC 30.6 L (31.0-37.0) g/dL Neutrophils # (Manual) 22.30 H (1.3-7.7) k/uL Lymphocytes # (Manual) 0.47 L (1.0-4.8) k/uL Metamyelocytes # (Man) 0.47 H (0) k/uL Myelocytes # (Manual) (0) k/uL Sodium 135 L (137-145) mmol/L BUN 32 H (9-20) mg/dL Glucose 199 H (74-99) mg/dL Plasma Lactic Acid Paco 2.5 H* (0.7-2.0) mmol/L Procalcitonin (0.02-0.09) ng/mL Microbiology - Last 24 Hours (Table) 11/24/21 19:30 Blood Culture Gram Stain - Preliminary Blood Blood Culture - Preliminary Streptococcus pneumoniae 11/24/21 20:07 Blood Culture Gram Stain - Preliminary Blood Blood Culture - Preliminary Streptococcus pneumoniae 11/24/21 17:15 Blood Culture Gram Stain - Preliminary Blood Blood Culture - Preliminary Streptococcus pneumoniae 11/24/21 17:00 Blood Culture Gram Stain - Preliminary Blood Blood Culture - Preliminary Streptococcus pneumoniae 11/24/21 17:15 Blood Culture - Final Blood 11/24/21 17:00 Blood Culture - Final Blood 11/24/21 20:07 Blood Culture - Final Blood 11/24/21 20:07 Blood Culture - Final Blood Assessment and Plan Plan: Assessment: #1. Acute on chronic hypoxic respiratory failure secondary to an acute community-acquired pneumonia mainly in the left lung #2. Acute exacerbation of chronic obstructive pulmonary disease secondary to above. FEV1 value of 41% of predicted #3. History of pulmonary embolism, anticoagulated with Xarelto #4. Hypertension #5. History of congestive heart failure, unspecified #6. Chronic thoracic back pain #7. Benign prosthetic hyperplasia #8. Lumbar spondylosis with myelopathy #9. [id number] smoking history, in remission for last 10 years #10. Chronic hypoxic respiratory failure related to advanced COPD patient is normally on 3-4 L/m of home oxygen and maintenance dose prednisone of 10 mg Plan: Continue current medical treatment Continue current antibiotics and steroids Continue nebulized bronchodilators There is chest x-ray has been reviewed, showing relatively stable predominantly left lung pneumonia Sputum culture sent and pedning Blood cultures persistently positive Follow up blood culture has been sent Will follow clinical course I have personally seen and examined the patient, performed the documentation and the assessment and plan as written. Number of minutes spent on the visit: [10] This is a split shared evaluation that was done with the nurse practitioner. The evaluation was done more than 20 minutes. I was involved in more than 90% of this evaluation. Time with Patient: Less than 30
[2021-11-26] MEDS ORDERED: FORMOTEROL FUMARATE 20 MCG/2 ML NEBU INHALATION SCH (20:00)
[2021-11-26] MEDS ORDERED: BUDESONIDE 1 MG/2 ML NEBU INHALATION SCH (20:00)
[2021-11-26] MEDS: SYMBICORT 160-4.5 MCG INHALER INHALATION SCH (20:06)
[2021-11-27] MEDS: methylPREDNISolone SOD SUCCI 125 MG/2 ML VIAL IV SCH ×5 (00:18→23:49)
[2021-11-27] MEDS ORDERED: IPRATROPIUM-ALBUTEROL 3 ML NEB INHALATION PRN (02:24)
[2021-11-27] MEDS: oxyCODONE-APAP 10-325MG 1 EACH TAB PO PRN ×2 (02:40→23:48)
[2021-11-27] MEDS: PIPERACILLIN-TAZOBACTAM 3.375 GM in SODIUM CHLORIDE 0.9% 100 ML IVPB SCH (06:11)
[2021-11-27] MEDS: SODIUM CHLORIDE 0.9% 1,000 ML IV SCH ×2 (06:47→12:50)
[2021-11-27] MEDS: oxyCODONE-APAP 10-325MG 1 EACH TAB PO SCH ×3 (06:48→17:06)
[2021-11-27 07:43] LABS: Basophils # (A) 0.1 k/uL (0-0.2); Basophils % (A) 0 %; Eosinophils % (A) 0 %; HCT 39.8 % (39.0-53.0); HGB 12.3 gm/dL (13.0-17.5); Hypochromasia Slight; Lymphocytes # (A) 0.6 k/uL (1.0-4.8); Lymphocytes % (A) 2 %; MCH 32.1 pg (25.0-35.0); MCHC 30.8 g/dL (31.0-37.0); MCV 104.2 fL (80.0-100.0); Macrocytosis Slight; Mean Platelet Volume 7.5; Monocytes # (A) 0.6 k/uL (0-1.0); Monocytes % (A) 3 %; Neutrophils # (A) 22.6 k/uL (1.3-7.7); Neutrophils % (A) 94 %; Platelet Count 289 k/uL (150-450); RBC 3.82 m/uL (4.30-5.90); RDW 13.1 % (11.5-15.5); WBC 23.9 k/uL (3.8-10.6)
[2021-11-27 08:00] LABS: Potassium 4.6 mmol/L (3.5-5.1)
[2021-11-27] MEDS: CHOLECALCIFEROL 125 MCG (5000 IU) TABLET PO SCH (08:00)
[2021-11-27] MEDS: GABAPENTIN 300 MG CAP PO SCH ×3 (08:00→21:33)
[2021-11-27] MEDS: THIAMINE 100 MG TAB PO SCH (08:00)
[2021-11-27] MEDS: RIVAROXABAN 2.5 MG TABLET PO SCH ×2 (08:00→21:33)
[2021-11-27] MEDS: IPRATROPIUM 0.5 MG/2.5 ML NEBU INHALATION SCH (08:10)
[2021-11-27] MEDS: SYMBICORT 160-4.5 MCG INHALER INHALATION SCH ×2 (08:17→20:22)
--- NOTE | 2021-11-27 10:05 | P.PN ---
Subjective Patient was examined at bedside today continues to complain of shortness of breath and a productive cough. Denies any chest pain, palpitations however is bringing up some phlegm that was present at bedside in a couple. It is clear/greenish in color and approximately 2 teaspoons. Case also discussed with pulmonary. Present at bedside. Objective - Vital Signs Vital signs: Vital Signs Temp 98.1 F 11/27/21 08:00 Pulse 104 H 11/27/21 08:21 Resp 16 11/27/21 08:00 BP 173/98 11/27/21 08:00 Pulse Ox 97 11/27/21 08:00 Intake & Output 11/26/21 11/27/21 11/27/21 18:59 06:59 18:59 Intake Total 598 120 Output Total 500 600 275 Balance 98 -600 -155 Intake: Oral 598 120 Output: Urine 500 600 275 Other: Voiding Method Urinal Urinal Urinal # Voids 1 - Exam Constitutional: No acute distress, conversant, pleasant Eyes: Anicteric sclerae, moist conjunctiva, Pupils equal round reactive to light ENMT: NC/AT Oropharynx clear, no erythema, or exudates Neck: Supple, no masses, or JVD No carotid bruits No thyromegaly Lungs: diminished breath sounds throughout Diffuse wheezing appreciated bilaterally Cardiovascular: Heart tachycardia No murmurs, gallops, or rubs No peripheral edema Abdominal: Soft Nontender, no guarding, rebound or rigidity Abdomen moving with respiration Normoactive bowel sounds No hepatomegaly, No splenomegaly No palpable mass No abdominal wall hernia noted Skin: Normal temperature, tone, texture, turgor No induration No subcutaneous nodules No rash, lesions No ulcers Extremities: No digital cyanosis severe fungal nail infection of the hands with thickening of the nails Pedal pulses intact and symmetrical Radial pulses intact and symmetrical No calf tenderness Psychiatric: Alert and oriented to person, place - Labs CBC & Chem 7: 11/27/21 07:23 11/27/21 07:23 Labs: Abnormal Lab Results - Last 24 Hours (Table) 11/27/21 11/27/21 11/27/21 Range/Units 07:23 07:23 07:29 WBC 23.9 H (3.8-10.6) k/uL RBC 3.82 L (4.30-5.90) m/uL Hgb 12.3 L (13.0-17.5) gm/dL MCV 104.2 H (80.0-100.0) fL MCHC 30.8 L (31.0-37.0) g/dL Neutrophils # 22.6 H (1.3-7.7) k/uL Lymphocytes # 0.6 L (1.0-4.8) k/uL BUN 28 H (9-20) mg/dL Glucose 159 H (74-99) mg/dL Plasma Lactic Acid Paco 3.1 H* (0.7-2.0) mmol/L Microbiology - Last 24 Hours (Table) 11/26/21 04:53 Gram Stain - Preliminary Sputum Sputum Culture - Preliminary 11/24/21 19:30 Blood Culture Gram Stain - Preliminary Blood Blood Culture - Preliminary Streptococcus pneumoniae 11/24/21 20:07 Blood Culture Gram Stain - Preliminary Blood Blood Culture - Preliminary Streptococcus pneumoniae 11/24/21 17:15 Blood Culture Gram Stain - Preliminary Blood Blood Culture - Preliminary Streptococcus pneumoniae 11/24/21 17:00 Blood Culture Gram Stain - Preliminary Blood Blood Culture - Preliminary Streptococcus pneumoniae Assessment and Plan Assessment: Assessment: #1 sepsis secondary to community acquired pneumonia #2 acute hypoxic respiratory distress secondary to COPD exacerbation secondary to above #3 lactic acidosis secondary to sepsis #4 bacteremia secondary to strep pneumo #5 hyperlipidemia #6 history of pulmonary embolism on anticoagulation #7 acute kidney injury secondary to ATN/sepsis - resolved Plan: -Admit to medicine for close monitoring -Aspiration/fall precaution -Repeat blood cultures -Continue with IV methylprednisolone patient is wheezing diffusely -Chest x-ray reviewed -Continue with IV Zosyn for now de-escalate -Gentle hydration with IV fluids GEN lactic acid until normalized -DVT prophylaxis Xarelto -Disposition anticipate discharge in the next 24-48 hours pending respiratory status.
--- NOTE | 2021-11-27 10:59 | P.PN ---
Subjective Progress Note Date: 11/27/21 This a pleasant 76-year-old male patient with a known history of coronary artery disease congestive heart failure, T CVA/TIA, dementia, hypertension, hyperlipidemia, pulmonary embolism and maintained on Xarelto., He also has a history of chronic obstructive pulmonary disease with FEV1 value of 49% of pred icted. He had a previous heavy smoking tobacco history but quit back in 2016. He presented here to the emergency room yesterday with a three-day history of increasing shortness of breath. He was also found to be in a tachycardic. He received Lopressor in the emergency department. Chest x-ray revealed scattered airspace opacities within the left mid and lower lung hernandes. Background COPD changes. White count 18.6. Hemoglobin 13.4. Sodium 139. Potassium 4.7. BUN 22. Creatinine 1.27. Glucose 194. Lactic acid 3.0. Troponin negative times one. ProBNP 183. Coronavirus PCR not detected. Legioinella antigen negative. Blood cultures reveal no growth. He's been initiated on ceftriaxone and azithromycin along with bronchodilators and IV solu Medrol. Anticoagulated with Xarelto. On 11/26/2021 patient seen in follow-up on selective care unit, he states he is still coughing, feels congested, at times she is able to bring up some whitish colored sputum. Sputum specimen has been sent and results are pending, patient remains on Zosyn for antibiotic coverage, his been afebrile overnight, pro- calcitonin is significantly elevated at 18.4,multiple blood cultures were positive for strep pneumonia. Repeat blood culture has been ordered and pending at this time. Lung sounds reveal diffuse wheezes, rhonchi. Patient has an over [id number] smoking history, in remission for last 10 years, patient has advanced COPD he is only on home oxygen at 3-4 L and maintenance dose prednisone 10 mg daily. On IV Solu-Medrol 40 mg every 12 hours, DuoNeb 4 times a day. Currently amiodarone drip has been discontinued, patient is currently in sinus mechanism with a controlled rate. He is on Xarelto 2.5 mg BID. On 11/27/2021 patient seen in follow-up on selective care unit. Patient is quiet bronchospastic today, has a congested cough, at times he is able to bring up some whitish colored phlegm, he remains on Zosyn, sputum culture was sent, preliminary Gram stain shows few PMNs, many gram-positive cocci, few gram- positive bacilli. Follow-up blood culture from 11/26/2021 has shown no growth thus far. Afebrile. Vital signs have been stable, he remains on 3 L of oxygen pulse ox is 96%, yesterday we increased his IV steroids to 60 g every 6 hours, he is getting breathing treatments on an as-needed basis which we will switch to schedule bases. Objective - Vital Signs Vital signs: Vital Signs Temp 98.1 F 11/27/21 08:00 Pulse 104 H 11/27/21 08:21 Resp 16 11/27/21 08:00 BP 173/98 11/27/21 08:00 Pulse Ox 97 11/27/21 08:00 Intake & Output 11/26/21 11/27/21 11/27/21 18:59 06:59 18:59 Intake Total 598 120 Output Total 500 600 275 Balance 98 -600 -155 Intake: Oral 598 120 Output: Urine 500 600 275 Other: Voiding Method Urinal Urinal Urinal # Voids 1 - Exam GENERAL EXAM: Alert, pleasant, 76-year-old white male, on 3 L of oxygen pulse ox is 92%, comfortable in no apparent distress. HEAD: Normocephalic/atraumatic. EYES: Normal reaction of pupils, equal size. Conjunctiva pink, sclera white. NOSE: Clear with pink turbinates. THROAT: No erythema or exudates. NECK: No masses, no JVD, no thyroid enlargement, no adenopathy. CHEST: No chest wall deformity. Symmetrical expansion. LUNGS: Equal air entry with diffuse wheezes and rhonchi CVS: Regular rate and rhythm, normal S1 and S2, no gallops, no murmurs, no rubs ABDOMEN: Soft, nontender. No hepatosplenomegaly, normal bowel sounds, no guarding or rigidity. EXTREMITIES: No clubbing, no edema, no cyanosis, 2+ pulses and upper and lower extremities. MUSCULOSKELETAL: Muscle strength and tone normal. SPINE: No scoliosis or deformity SKIN: No rashes CENTRAL NERVOUS SYSTEM: Alert and oriented -3. No focal deficits, tone is normal in all 4 extremities. PSYCHIATRIC: Alert and oriented -3. Appropriate affect. Intact judgment and insight. - Labs CBC & Chem 7: 04/07/22 07:23 11/27/21 07:23 Labs: Abnormal Lab Results - Last 24 Hours (Table) 11/27/21 11/27/21 11/27/21 Range/Units 07:23 07:23 07:29 WBC 23.9 H (3.8-10.6) k/uL RBC 3.82 L (4.30-5.90) m/uL Hgb 12.3 L (13.0-17.5) gm/dL MCV 104.2 H (80.0-100.0) fL MCHC 30.8 L (31.0-37.0) g/dL Neutrophils # 22.6 H (1.3-7.7) k/uL Lymphocytes # 0.6 L (1.0-4.8) k/uL BUN 28 H (9-20) mg/dL Glucose 159 H (74-99) mg/dL Plasma Lactic Acid Paco 3.1 H* (0.7-2.0) mmol/L Microbiology - Last 24 Hours (Table) 11/24/21 20:07 Blood Culture Gram Stain - Final Blood Blood Culture - Final Streptococcus pneumoniae 11/24/21 19:30 Blood Culture Gram Stain - Final Blood Blood Culture - Final Streptococcus pneumoniae 11/24/21 17:15 Blood Culture Gram Stain - Final Blood Blood Culture - Final Streptococcus pneumoniae 11/24/21 17:00 Blood Culture Gram Stain - Final Blood Blood Culture - Final Streptococcus pneumoniae 11/26/21 07:46 Blood Culture - Preliminary Blood No Growth after 24 hours 11/26/21 04:53 Gram Stain - Preliminary Sputum Sputum Culture - Preliminary Assessment and Plan Plan: Assessment: #1. Acute on chronic hypoxic respiratory failure secondary to an acute community-acquired pneumonia mainly in the left lung #2. Strep pneumonia bacteremia likely related to pneumonia, community acquired #3. Acute exacerbation of chronic obstructive pulmonary disease secondary to above. FEV1 value of 41% of predicted #4. History of pulmonary embolism, anticoagulated with Xarelto #5. Hypertension #6. History of congestive heart failure, unspecified #7. Chronic thoracic back pain #8. Benign prosthetic hyperplasia #9. Lumbar spondylosis with myelopathy #10. [id number] smoking history, in remission for last 10 years #11. Chronic hypoxic respiratory failure related to advanced COPD patient is normally on 3-4 L/m of home oxygen and maintenance dose prednisone of 10 mg Plan: We'll switch IV antibiotics to Rocephin 2 g every 24 hours Continue with IV Solu-Medrol 60 mg every 6 hours DuoNeb every 4 hours Follow blood culture has shown no growth at the 24-hour sushila Vital signs are stable Follow up chest x-ray tomorrow Will follow clinical course This is a split joint evaluation that was done along with the nurse practitioner on the case.. I was involved in more than 80% of this evaluation, decision making and treatment. This evaluation was on a more than 20 minutes. In summary, the patient is bacteremic with strep pneumonia the patient will need IV antibiotics. I suggested to stop the IV Zosyn and put the patient on 2 g of IV Rocephin. Continue bronchodilators. Aggressive pulmonary toileting. Continue steroids. We'll continue to follow.
[2021-11-27] MEDS: IPRATROPIUM-ALBUTEROL 3 ML NEB INHALATION SCH ×3 (11:49→20:22)
[2021-11-27] MEDS ORDERED: LORazepam 1 MG TAB PO STA (17:27)
[2021-11-27] MEDS ORDERED: hydrALAZINE HCL 20 MG/ML 1 ML VIAL IVP PRN (17:27)
[2021-11-27] MEDS ORDERED: SODIUM CHLORIDE 0.9% 1,000 ML IV ONE (23:32)
[2021-11-28] MEDS: IPRATROPIUM-ALBUTEROL 3 ML NEB INHALATION SCH ×6 (00:19→21:17)
[2021-11-28] MEDS: ALPRAZolam 0.25 MG TAB PO PRN ×2 (00:45→16:13)
[2021-11-28] MEDS ORDERED: SODIUM CHLORIDE 0.9% 500 ML 500 ML IV ONE (03:33)
[2021-11-28] MEDS: SODIUM CHLORIDE 0.9% 1,000 ML IV SCH ×2 (04:19→04:56)
[2021-11-28 05:28] LABS: Basophils % (A) 0 %; Eosinophils % (A) 0 %; HCT 37.5 % (39.0-53.0); HGB 11.7 gm/dL (13.0-17.5); Hypochromasia Slight; Lymphocytes # (A) 0.6 k/uL (1.0-4.8); Lymphocytes % (A) 4 %; MCH 32.2 pg (25.0-35.0); MCHC 31.2 g/dL (31.0-37.0); MCV 103.2 fL (80.0-100.0); Macrocytosis Slight; Mean Platelet Volume 7.1; Monocytes # (A) 0.6 k/uL (0-1.0); Monocytes % (A) 4 %; Neutrophils # (A) 14.2 k/uL (1.3-7.7); Neutrophils % (A) 91 %; Platelet Count 304 k/uL (150-450); RBC 3.63 m/uL (4.30-5.90); RDW 13.5 % (11.5-15.5); WBC 15.5 k/uL (3.8-10.6)
[2021-11-28 05:44] LABS: Calcium 8.3 mg/dL (8.4-10.2); Potassium 4.5 mmol/L (3.5-5.1)
[2021-11-28] MEDS: oxyCODONE-APAP 10-325MG 1 EACH TAB PO SCH ×3 (06:48→16:13)
[2021-11-28] MEDS: methylPREDNISolone SOD SUCCI 125 MG/2 ML VIAL IV SCH (06:49)
[2021-11-28] MEDS: SYMBICORT 160-4.5 MCG INHALER INHALATION SCH ×2 (06:53→21:17)
[2021-11-28] MEDS: GABAPENTIN 300 MG CAP PO SCH ×3 (08:10→21:28)
[2021-11-28] MEDS: THIAMINE 100 MG TAB PO SCH (08:10)
[2021-11-28] MEDS: RIVAROXABAN 2.5 MG TABLET PO SCH ×2 (08:10→21:42)
[2021-11-28] MEDS: CHOLECALCIFEROL 125 MCG (5000 IU) TABLET PO SCH (08:10)
--- NOTE | 2021-11-28 08:20 | XR ---
EXAMINATION TYPE: XR chest 1V portable DATE OF EXAM: 11/28/2021 COMPARISON: X-ray dated 11/26/2021 HISTORY: Pneumonia TECHNIQUE: Single frontal view of the chest is obtained. FINDINGS: Persistent bilateral prominent interstitial lung markings with could be related to COPD changes or un derlying chronic pulmonary fibrotic changes. Associated minimal infiltration in the left mid to lower lung zone can not be excluded. Please correlate clinically. Suspected emphysematous changes in the upper lung zones. No sizable pleural effusion or definite pneu mothorax. No gross cardiomegaly. Aortic atherosclerotic calcifications. Unchanged bony thoracic cage. IMPRESSION: Persistent signs of COPD/pulmonary fibrotic changes. Associated minimal infiltration can't be exclude d as detailed above, please correlate clinically.
[2021-11-28] MEDS: cloNIDine HCL 0.2 MG TAB PO PRN ×2 (12:03→16:13)
--- NOTE | 2021-11-28 12:59 | P.PN ---
Subjective Progress Note Date: 11/28/21 This a pleasant 76-year-old male patient with a known history of coronary artery disease congestive heart failure, T CVA/TIA, dementia, hypertension, hyperlipidemia, pulmonary embolism and maintained on Xarelto., He also has a history of chronic obstructive pulmonary disease with FEV1 value of 49% of pred icted. He had a previous heavy smoking tobacco history but quit back in 2016. He presented here to the emergency room yesterday with a three-day history of increasing shortness of breath. He was also found to be in a tachycardic. He received Lopressor in the emergency department. Chest x-ray revealed scattered airspace opacities within the left mid and lower lung hernandes. Background COPD changes. White count 18.6. Hemoglobin 13.4. Sodium 139. Potassium 4.7. BUN 22. Creatinine 1.27. Glucose 194. Lactic acid 3.0. Troponin negative times one. ProBNP 183. Coronavirus PCR not detected. Legioinella antigen negative. Blood cultures reveal no growth. He's been initiated on ceftriaxone and azithromycin along with bronchodilators and IV solu Medrol. Anticoagulated with Xarelto. On 11/26/2021 patient seen in follow-up on selective care unit, he states he is still coughing, feels congested, at times she is able to bring up some whitish colored sputum. Sputum specimen has been sent and results are pending, patient remains on Zosyn for antibiotic coverage, his been afebrile overnight, pro- calcitonin is significantly elevated at 18.4,multiple blood cultures were positive for strep pneumonia. Repeat blood culture has been ordered and pending at this time. Lung sounds reveal diffuse wheezes, rhonchi. Patient has an over [id number] smoking history, in remission for last 10 years, patient has advanced COPD he is only on home oxygen at 3-4 L and maintenance dose prednisone 10 mg daily. On IV Solu-Medrol 40 mg every 12 hours, DuoNeb 4 times a day. Currently amiodarone drip has been discontinued, patient is currently in sinus mechanism with a controlled rate. He is on Xarelto 2.5 mg BID. On 11/27/2021 patient seen in follow-up on selective care unit. Patient is quiet bronchospastic today, has a congested cough, at times he is able to bring up some whitish colored phlegm, he remains on Zosyn, sputum culture was sent, preliminary Gram stain shows few PMNs, many gram-positive cocci, few gram- positive bacilli. Follow-up blood culture from 11/26/2021 has shown no growth thus far. Afebrile. Vital signs have been stable, he remains on 3 L of oxygen pulse ox is 96%, yesterday we increased his IV steroids to 60 g every 6 hours, he is getting breathing treatments on an as-needed basis which we will switch to scheduled bases. On 11/28/2021 patient seen in follow-up on [facility] care unit. Patient is on 4 L of oxygen pulse ox is 92%, is hypertensive, he is a bit anxious at times, still has a congested cough, he is bringing up some yellowish colored phlegm, his been afebrile, he remains on antibiotics, steroids switched him to IV Rocephin 2 g every 24 hours, today we'll contact the IV steroids and will continue on breathing treatments. Patient's daughters at the bedside and she states patient has been having pain swelling and drainage out of a wound on his left elbow which had been there for the last 3 weeks, and had been treated with oral antibiotics and steroid injection at the PCPs office. The left elbow is wrapped, there is some serous drainage, after removing the wraps there is open ulcer, does not appear to be infected, but will be cultured nevertheless. Patient does have swelling surrounding the area and upper forearm and lower arm as well. Objective - Vital Signs Vital signs: Vital Signs Temp 98.3 F 11/28/21 11:55 Pulse 113 H 11/28/21 11:55 Resp 18 11/28/21 11:55 BP 193/82 11/28/21 11:55 Pulse Ox 92 L 11/28/21 11:55 Intake & Output 11/27/21 11/28/21 11/28/21 18:59 06:59 18:59 Intake Total 1360 1290 180 Output Total 375 540 Balance 985 750 180 Intake: Intake, IV Titration 1050 Amount Sodium Chloride 0.9% 1, 1000 000 ml @ 999 mls/hr IV . Q1H1M ONE Rx#:[id number] cefTRIAXone 2 gm In 50 Sodium Chloride 0.9% 50 ml @ 100 mls/hr IVPB Q24HR [facility] Rx#:[id number] Oral 1360 240 180 Output: Urine 375 540 Post Void Residual 0 Other: Voiding Method Urinal # Voids 5 1 # Bowel Movements 1 - Exam GENERAL EXAM: Alert, pleasant, 76-year-old white male, on 4 L of oxygen pulse ox is 92-96%, comfortable in no apparent distress. HEAD: Normocephalic/atraumatic. EYES: Normal reaction of pupils, equal size. Conjunctiva pink, sclera white. NOSE: Clear with pink turbinates. THROAT: No erythema or exudates. NECK: No masses, no JVD, no thyroid enlargement, no adenopathy. CHEST: No chest wall deformity. Symmetrical expansion. LUNGS: Equal air entry with diffuse wheezes and rhonchi CVS: Regular rate and rhythm, normal S1 and S2, no gallops, no murmurs, no rubs ABDOMEN: Soft, nontender. No hepatosplenomegaly, normal bowel sounds, no guarding or rigidity. EXTREMITIES: No clubbing, no edema, no cyanosis, 2+ pulses and upper and lower extremities. MUSCULOSKELETAL: Muscle strength and tone normal. Left elbow swelling and open ulcer on left elbow SPINE: No scoliosis or deformity SKIN: No rashes CENTRAL NERVOUS SYSTEM: Alert and oriented -3. No focal deficits, tone is normal in all 4 extremities. PSYCHIATRIC: Alert and oriented -3. Appropriate affect. Intact judgment and insight. - Labs CBC & Chem 7: 11/28/21 05:14 11/28/21 05:14 Labs: Abnormal Lab Results - Last 24 Hours (Table) 11/27/21 11/28/21 11/28/21 Range/Units 15:03 01:33 05:14 WBC (3.8-10.6) k/uL RBC (4.30-5.90) m/uL Hgb (13.0-17.5) gm/dL Hct (39.0-53.0) % MCV (80.0-100.0) fL Neutrophils # (1.3-7.7) k/uL Lymphocytes # (1.0-4.8) k/uL Sodium (137-145) mmol/L BUN (9-20) mg/dL Glucose (74-99) mg/dL Plasma Lactic Acid Paco 3.2 H* 4.4 H* (0.7-2.0) mmol/L Calcium (8.4-10.2) mg/dL Procalcitonin 5.27 H (0.02-0.09) ng/mL 11/28/21 11/28/21 Range/Units 05:14 05:14 WBC 15.5 H (3.8-10.6) k/uL RBC 3.63 L (4.30-5.90) m/uL Hgb 11.7 L (13.0-17.5) gm/dL Hct 37.5 L (39.0-53.0) % MCV 103.2 H (80.0-100.0) fL Neutrophils # 14.2 H (1.3-7.7) k/uL Lymphocytes # 0.6 L (1.0-4.8) k/uL Sodium 136 L (137-145) mmol/L BUN 24 H (9-20) mg/dL Glucose 149 H (74-99) mg/dL Plasma Lactic Acid Paco (0.7-2.0) mmol/L Calcium 8.3 L (8.4-10.2) mg/dL Procalcitonin (0.02-0.09) ng/mL Microbiology - Last 24 Hours (Table) 11/26/21 07:46 Blood Culture - Preliminary Blood No Growth after 48 hours 11/26/21 04:53 Gram Stain - Final Sputum Sputum Culture - Final Alexandra albicans 11/24/21 20:07 Blood Culture Gram Stain - Final Blood Blood Culture - Final Streptococcus pneumoniae 11/24/21 19:30 Blood Culture Gram Stain - Final Blood Blood Culture - Final Streptococcus pneumoniae 11/24/21 17:15 Blood Culture Gram Stain - Final Blood Blood Culture - Final Streptococcus pneumoniae 11/24/21 17:00 Blood Culture Gram Stain - Final Blood Blood Culture - Final Streptococcus pneumoniae Assessment and Plan Plan: Assessment: Acute on chronic hypoxic respiratory failure secondary to an acute community- acquired pneumonia mainly in the left lung Strep pneumonia bacteremia likely related to pneumonia, community acquired Acute exacerbation of chronic obstructive pulmonary disease secondary to above. FEV1 value of 41% of predicted History of pulmonary embolism, anticoagulated with Xarelto Hypertension History of congestive heart failure, unspecified Chronic thoracic back pain Benign prosthetic hyperplasia Lumbar spondylosis with myelopathy [id number] smoking history, in remission for last 10 years Chronic hypoxic respiratory failure related to advanced COPD patient is normally on 3-4 L/m of home oxygen and maintenance dose prednisone of 10 mg Left elbow wound, with the possibility of osteomyelitis Plan: Continue current antibiotics Decrease IV steroids to 40 every 8 hours Obtain left elbow X-Rays Consult Dr. Sullivan from [place] for antibiotic recs will continue to follow I have personally seen and examined the patient, performed the documentation and the assessment and plan as written. Number of minutes spent on the visit: [10] This is a split shared evaluation that was done along with a nurse practitioner. I was involved in more than 90% of this evaluation in terms of history taking, examination decision making. This information was done more than 20 minutes. Upon further in depth evaluation, the patient was found to have a ulcer over the left elbow that necessitated further attention. I do think that the patient has a deep-seated infection probably an osteomyelitis. There is at the level of the left elbow. Based on that, consultation was placed for orthopedic surgery and infectious disease. The patient will be kept on IV Rocephin. X-ray of the elbow will be done. We'll continue to follow. Clinically is improving and the patient has a pneumococcal pneumonia and bacteremia for which he remains on IV Rocephin 2 g every 24 hours. Time with Patient: Less than 30
--- NOTE | 2021-11-28 14:30 | P.PN ---
Subjective Patient was examined at bedside today not complaining of any new symptomatology. Continues to be on 4 L nasal cannula. Shortness of breath is slightly improved compared to yesterday continues to bring up phlegm. Family present at bedside all questions have been answered. Patient is also being evaluated for a wound on the left elbow which was currently wrapped. I did not open this as this was completed recently and was evaluated by the plating machine operator. Case was discussed with RN and family present at bedside. Objective - Vital Signs Vital signs: Vital Signs Temp 98.3 F 11/28/21 11:55 Pulse 113 H 11/28/21 11:55 Resp 18 11/28/21 11:55 BP 193/82 11/28/21 11:55 Pulse Ox 92 L 11/28/21 11:55 Intake & Output 11/27/21 11/28/21 11/28/21 18:59 06:59 18:59 Intake Total 1360 1290 180 Output Total 375 540 Balance 985 750 180 Intake: Intake, IV Titration 1050 Amount Sodium Chloride 0.9% 1, 1000 000 ml @ 999 mls/hr IV . Q1H1M [facility] Rx#:[id number] cefTRIAXone 2 gm In 50 Sodium Chloride 0.9% 50 ml @ 100 mls/hr IVPB Q24HR [facility] Rx#:[id number] Oral 1360 240 180 Output: Urine 375 540 Post Void Residual 0 Other: Voiding Method Urinal # Voids 5 1 # Bowel Movements 1 - Exam Constitutional: No acute distress, conversant, pleasant Eyes: Anicteric sclerae, moist conjunctiva, Pupils equal round reactive to light ENMT: NC/AT Oropharynx clear, no erythema, or exudates Neck: Supple, no masses, or JVD No carotid bruits No thyromegaly Lungs: diminished breath sounds throughout Diffuse wheezing appreciated bilaterally Cardiovascular: Heart tachycardia No murmurs, gallops, or rubs No peripheral edema Abdominal: Soft Nontender, no guarding, rebound or rigidity Abdomen moving with respiration Normoactive bowel sounds No hepatomegaly, No splenomegaly No palpable mass No abdominal wall hernia noted Skin: Left elbow currently recently wrapped. There is a wound that is being concerned and questions about. Was evaluated by the plating machine operator in the morning. I will reevaluate this tomorrow morning. Extremities: No digital cyanosis severe fungal nail infection of the hands with thickening of the nails Pedal pulses intact and symmetrical Radial pulses intact and symmetrical No calf tenderness Psychiatric: Alert and oriented to person, place - Labs CBC & Chem 7: 11/28/21 05:14 11/28/21 05:14 Labs: Abnormal Lab Results - Last 24 Hours (Table) 11/27/21 11/28/21 11/28/21 Range/Units 15:03 01:33 05:14 WBC (3.8-10.6) k/uL RBC (4.30-5.90) m/uL Hgb (13.0-17.5) gm/dL Hct (39.0-53.0) % MCV (80.0-100.0) fL Neutrophils # (1.3-7.7) k/uL Lymphocytes # (1.0-4.8) k/uL Sodium (137-145) mmol/L BUN (9-20) mg/dL Glucose (74-99) mg/dL Plasma Lactic Acid Paco 3.2 H* 4.4 H* (0.7-2.0) mmol/L Calcium (8.4-10.2) mg/dL Procalcitonin 5.27 H (0.02-0.09) ng/mL 11/28/21 11/28/21 Range/Units 05:14 05:14 WBC 15.5 H (3.8-10.6) k/uL RBC 3.63 L (4.30-5.90) m/uL Hgb 11.7 L (13.0-17.5) gm/dL Hct 37.5 L (39.0-53.0) % MCV 103.2 H (80.0-100.0) fL Neutrophils # 14.2 H (1.3-7.7) k/uL Lymphocytes # 0.6 L (1.0-4.8) k/uL Sodium 136 L (137-145) mmol/L BUN 24 H (9-20) mg/dL Glucose 149 H (74-99) mg/dL Plasma Lactic Acid Paco (0.7-2.0) mmol/L Calcium 8.3 L (8.4-10.2) mg/dL Procalcitonin (0.02-0.09) ng/mL Microbiology - Last 24 Hours (Table) 11/26/21 07:46 Blood Culture - Preliminary Blood No Growth after 48 hours 11/26/21 04:53 Gram Stain - Final Sputum Sputum Culture - Final Alexandra albicans 11/24/21 20:07 Blood Culture Gram Stain - Final Blood Blood Culture - Final Streptococcus pneumoniae 11/24/21 19:30 Blood Culture Gram Stain - Final Blood Blood Culture - Final Streptococcus pneumoniae 11/24/21 17:15 Blood Culture Gram Stain - Final Blood Blood Culture - Final Streptococcus pneumoniae 11/24/21 17:00 Blood Culture Gram Stain - Final Blood Blood Culture - Final Streptococcus pneumoniae Assessment and Plan Assessment: Assessment: #1 sepsis secondary to community acquired pneumonia #2 acute hypoxic respiratory distress secondary to COPD exacerbation secondary to above #3 lactic acidosis secondary to sepsis #4 bacteremia secondary to strep pneumo #5 hyperlipidemia #6 history of pulmonary embolism on anticoagulation #7 acute kidney injury secondary to ATN/sepsis - resolved Plan: -Admit to medicine for close monitoring -Aspiration/fall precaution -De-escalate antibiotics from Zosyn to IV Rocephin 2 g daily. -Repeat blood cultures currently negative. -Continue with IV methylprednisolone patient is wheezing diffusely -Chest x-ray reviewed -Gentle hydration with IV fluids GEN lactic acid normalized -DVT prophylaxis Xarelto -Disposition anticipate discharge in the next 24-48 hours pending respiratory status.
--- NOTE | 2021-11-28 15:56 | XR ---
EXAMINATION TYPE: XR elbow complete LT DATE OF EXAM: 11/28/2021 CLINICAL HISTORY: Focal wound and swelling TECHNIQUE: Frontal, lateral and oblique images of the left elbow are obtained. COMPARISON: None FINDINGS: Focal lucency consistent with open wound over the olecranon extends to the bone surface wit hout bony destruction or erosive change. There is no acute fracture/dislocation evident in the left e lbow. No abnormal fat pad signs are seen. IMPRESSION: Soft tissue wound extends to the dorsal surface of the olecranon without bony destruction . No convincing radiographic evidence for acute osteomyelitis. If clinical concern persists, further investigation with 3 phase bone scan or MRI would be warranted.
[2021-11-28] MEDS: methylPREDNISolone SOD SUCCI 40 MG/ML 1 ML VIAL IV SCH (16:13)
--- NOTE | 2021-11-28 17:42 | P.CNOR ---
History of Present Illness - [facility] Consult date: 11/28/21 Requesting physician: Yves Stovall Consult reason: other (left elbow possible osteomyelitis) History of present illness: Patient is a 76-year-old male with a history of CAD, CHF, CVA, dementia, hypertension and COPD who presented the emergency department several days ago with a chief complaint of increasing shortness of breath. Patient is being treated on cardiac floor for sepsis secondary to community-acquired pneumonia. Patient also has history of pulmonary embolism for which he is being treated with Xarelto. We have been consulted for left elbow possible osteomyelitis. Epifanio lozano was seen at bedside this afternoon. Kerlix wrap was present over left elbow. Patient cannot recall when his left elbow began bothering him. Patient says mostly he began to have some swelling in the left forearm. Patient says it was not painful but just more so irritating. Patient denies radiation of pain. She rates pain as 5 out of 10. Patient did say he saw his primary care provider about 2 weeks ago in office whom he thinks is Dr. Reed or his partner. Patient says one of his primary care providers performed an aspiration or injection into the back of elbow. Patient is unsure how his elbow has progressed over the past week. Patient mostly states that his elbow hurts just during when his touch. Patient denies any other trauma to the area/falls. Patient denies any previous orthopedic surgical history. Patient denies chest pain, fever, nausea, vomiting, change in vision, loss of bowel/bladder control. Past Medical History Past Medical History: Coronary Artery Disease (CAD), Heart Failure, COPD (Severe COPD , FEV1 is 37-41%), CVA/TIA, Dementia, GERD/Reflux, Hyperlipidemia, Hypertension, Memory Impairment, Myocardial Infarction ([place]), Osteoarthritis (OA), Pneumonia, Pulmonary Embolus (PE), Syncope Additional Past Medical History / Comment(s): chronic COPD, home oxygen at 3L/NC ATC, possibly past MIs/EKG, tia,hemorrhoids, small hiatal hernia, overactive bladder, 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 Last Myocardial Infarction Date:: unknown History of Any Multi-Drug Resistant Organisms: None Reported Past Surgical History: Appendectomy, Back Surgery Additional Past Surgical History / Comment(s): EGD with bx/colonoscopy with bx, bronchoscopy, low back surgery, PICC-since removed. Past Anesthesia/Blood Transfusion Reactions: No Reported Reaction Additional Past Anesthesia/Blood Transfusion Reaction / Comm: Pt has never received blood. Smoking Status: Former smoker - Past Family History Father Family Medical History: Cancer Additional Family Medical History / Comment(s): Father had throat cancer. Mother Family Medical History: Cancer Additional Family Medical History / Comment(s): Mother had breast cancer. Medications and Allergies Home Medications Medication Instructions Recorded Confirmed Type Cholecalciferol [Vitamin D3 (125 125 mcg PO DAILY 11/24/21 11/24/21 History Mcg = 5000 Iu)] Gabapentin [Neurontin] 600 mg PO TID 11/24/21 11/24/21 History Rivaroxaban [Xarelto] 2.5 mg PO BID 11/24/21 11/24/21 History oxyCODONE-APAP 10-325MG [Percocet 1 tab PO TID-W/MEALS 11/24/21 11/24/21 History 10-325 mg] predniSONE 10 mg PO DAILY 11/24/21 11/24/21 History Allergies Allergy/AdvReac Type Severity Reaction Status Date / Time caffeine AdvReac Diarrhea Verified 11/24/21 18:34 Physical Examination Osteopathic Statement: *. No significant issues noted on an osteopathic structural exam other than those noted in the History and Physical/Consult. Left upper extremity: Inspection: Kerlix bandage present over the left elbow. Kerlix bandage was removed. Open wound present over left elbow approximately 2 cm in diameter roun ded shape. Negative for any drainage from the wound. The wound was inspected and the proximal portion the ulna can be visualized. Negative for any fluctuance/purulence. Left forearm there is mild to moderate edema. Sensation: Sensation is equal, symmetric, bilaterally intact throughout the uppe r extremities. Palpation: Moderate tenderness to palpation near the open wound on the left elbow. Nontender to palpation throughout the rest of exam Range of motion: Patient is able to fully extend and flex left elbow with known to very minimal pain in the left elbow. Patient is also able pronate and supinate left arm without pain. Patient has full flexion-extension left wrist. Ring Sorter strength is 4+/5 bilaterally. Patient has full range of motion in left shoulder abduction and forward elevation. Motor: 4/5 resisted left elbow flexion/extension, left wrist flexion/extension in left shoulder resisted abduction and flexion. Neurovascular status: Refill under 3 seconds in digits of upper extremities. Radial pulses intact, 2+ bilaterally. Special tests: Negative Homans bilaterally Results - Labs Labs: Abnormal Lab Results - Last 24 Hours (Table) 11/28/21 11/28/21 11/28/21 Range/Units 01:33 05:14 05:14 WBC 15.5 H (3.8-10.6) k/uL RBC 3.63 L (4.30-5.90) m/uL Hgb 11.7 L (13.0-17.5) gm/dL Hct 37.5 L (39.0-53.0) % MCV 103.2 H (80.0-100.0) fL Neutrophils # 14.2 H (1.3-7.7) k/uL Lymphocytes # 0.6 L (1.0-4.8) k/uL Sodium (137-145) mmol/L BUN (9-20) mg/dL Glucose (74-99) mg/dL Plasma Lactic Acid Paco 4.4 H* (0.7-2.0) mmol/L Calcium (8.4-10.2) mg/dL Procalcitonin 5.27 H (0.02-0.09) ng/mL 11/28/21 Range/Units 05:14 WBC (3.8-10.6) k/uL RBC (4.30-5.90) m/uL Hgb (13.0-17.5) gm/dL Hct (39.0-53.0) % MCV (80.0-100.0) fL Neutrophils # (1.3-7.7) k/uL Lymphocytes # (1.0-4.8) k/uL Sodium 136 L (137-145) mmol/L BUN 24 H (9-20) mg/dL Glucose 149 H (74-99) mg/dL Plasma Lactic Acid Paco (0.7-2.0) mmol/L Calcium 8.3 L (8.4-10.2) mg/dL Procalcitonin (0.02-0.09) ng/mL Microbiology - Last 24 Hours (Table) 11/26/21 07:46 Blood Culture - Preliminary Blood No Growth after 48 hours 11/26/21 04:53 Gram Stain - Final Sputum Sputum Culture - Final Alexandra albicans H & H 11/24/21 11/25/21 11/26/21 Range/Units 17:16 08:57 06:48 Hgb 15.0 13.4 11.8 L (13.0-17.5) gm/dL Hct 46.2 42.8 38.7 L (39.0-53.0) % 11/27/21 11/28/21 Range/Units 07:23 05:14 Hgb 12.3 L 11.7 L (13.0-17.5) gm/dL Hct 39.8 37.5 L (39.0-53.0) % Coagulation 11/24/21 Range/Units 17:16 INR 1.0 (<1.2) Result Diagrams: 11/28/21 05:14 11/28/21 05:14 Assessment and Plan Assessment: 1. 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 2. Multiple medical comorbidities Plan: 1. Age indeterminate left elbow presumptive osteomyelitis with 5mm open wound that probes directly down to bone, olecranon visible through wound. Patient would require MRI of elbow to determine extent and localization of bone involvement followed by formal irrigation and debridement with bone biopsy of olecranon followed by wound closure and bone culture specific antibiotics. Further discussion with medical team will be had regarding patients current medical state and if he is medically fit to undergo a formal I&D procedure in the OR in the near future. Fow now, I recommend continuation of antibiotics and keeping wound covered and avoiding direct pressure on posterior elbow. 2. Multiple medical comorbidities 3. Appreciate medical management; appreciate pulmonary management 4. Pain management - gabapentin; oxycodone 5. DVT prophylaxis - Xarelto 6. PT/OT - patient is encouraged to flex and extend his left elbow. Range of motion as tolerated. WBAT -Brady Marina DO Orthopedic Hand/Upper Extremity Surgeon Time with Patient: Less than 30
--- NOTE | 2021-11-28 23:34 | P.CONS ---
History of Present Illness - Reason for Consult Consult date: 11/28/21 Bacteremia and pneumonia left elbow cellulitis Requesting physician: Deja Peacock - Chief Complaint Shortness of breath 3 days - History of Present Illness Patient is a 76-year male presented to the ER 4 days ago for evaluation of increasing shortness of breath that has been progressively getting worse for 3 days before presentation to the hospital patient denies having any chest pain he did have a cough not bringing up any sputum patient denies any nausea no vomiting no shortness of food abdominal pain or any diarrhea patient on presentation to the hospital shows left mid and lower lung scattered opacities correlate for pneumonia patient on presentation to the hospital was afebrile and no fever had recorded subsequently patient did have a white count of 14.0 which is up to 23.9 until yesterday, however is down to 15.5 today did have elevated lactic acid and elevated procalcitonin patient did have a blood culture positive for strep pneumo sputum was Alexandra albicans patient was noticed to have a wound to the left elbow area patient not able to tell me when and how it started or if he has any pain associated with this area no purulent drainage has been reported by the nursing staff patient did have x-ray of the left elbow which did show soft tissue wound extend to the dorsal surface of the olecranon without any bony destruction no convincing evidence of osteomyelitis patient is currently being treated with Rocephin infectious disease was consulted for further management Review of Systems Positive points has been mentioned in HPI complete review could not be obtained because of his underlying mental status Past Medical History Past Medical History: Coronary Artery Disease (CAD), Heart Failure, COPD (Severe COPD , FEV1 is 37-41%), CVA/TIA, Dementia, GERD/Reflux, Hyperlipidemia, Hypertension, Memory Impairment, Myocardial Infarction ([place]), Osteoarthritis (OA), Pneumonia, Pulmonary Embolus (PE), Syncope Additional Past Medical History / Comment(s): chronic COPD, home oxygen at 3L/NC ATC, possibly past MIs/EKG, tia,hemorrhoids, small hiatal hernia, overactive bladder, 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 Last Myocardial Infarction Date:: unknown History of Any Multi-Drug Resistant Organisms: None Reported Past Surgical History: Appendectomy, Back Surgery Additional Past Surgical History / Comment(s): EGD with bx/colonoscopy with bx, bronchoscopy, low back surgery, PICC-since removed. Past Anesthesia/Blood Transfusion Reactions: No Reported Reaction Additional Past Anesthesia/Blood Transfusion Reaction / Comm: Pt has never received blood. Smoking Status: Former smoker - Past Family History Father Family Medical History: Cancer Additional Family Medical History / Comment(s): Father had throat cancer. Mother Family Medical History: Cancer Additional Family Medical History / Comment(s): Mother had breast cancer. Medications and Allergies Home Medications Medication Instructions Recorded Confirmed Type Cholecalciferol [Vitamin D3 (125 125 mcg PO DAILY 11/24/21 11/24/21 History Mcg = 5000 Iu)] Gabapentin [Neurontin] 600 mg PO TID 11/24/21 11/24/21 History Rivaroxaban [Xarelto] 2.5 mg PO BID 11/24/21 11/24/21 History oxyCODONE-APAP 10-325MG [Percocet 1 tab PO TID-W/MEALS 11/24/21 11/24/21 History 10-325 mg] predniSONE 10 mg PO DAILY 11/24/21 11/24/21 History Allergies Allergy/AdvReac Type Severity Reaction Status Date / Time caffeine AdvReac Diarrhea Verified 11/24/21 18:34 Physical Exam Vitals: Vital Signs Temp Pulse Pulse Resp BP Pulse Ox 11/28/21 11:55 98.3 F 113 H 18 193/82 92 L 11/28/21 11:32 112 H 11/28/21 11:15 112 H 11/28/21 08:00 98.3 F 126 H 18 182/96 96 11/28/21 07:08 104 H 11/28/21 06:54 100 11/28/21 04:18 92 11/28/21 04:08 91 11/28/21 03:22 98.0 F 104 H 18 156/79 97 11/28/21 00:30 138 H 11/28/21 00:19 122 H 11/27/21 23:33 97.6 F 158 H 22 173/96 96 11/27/21 22:54 124 H 197/96 11/27/21 20:37 100 11/27/21 20:22 97 96 11/27/21 20:00 97.4 F L 105 H 18 169/88 95 11/27/21 16:24 100 11/27/21 16:10 106 H 11/27/21 16:00 99.1 F 138 H 14 199/83 90 L Intake and Output 11/27/21 11/28/21 11/28/21 22:59 06:59 14:59 Intake Total 1120 1290 180 Output Total 320 320 Balance 800 970 180 Intake: Intake, IV Titration 1050 Amount Sodium Chloride 0.9% 1, 1000 000 ml @ 999 mls/hr IV . Q1H1M ONE Rx#:[id number] cefTRIAXone 2 gm In 50 Sodium Chloride 0.9% 50 ml @ 100 mls/hr IVPB Q24HR [facility] Rx#:[id number] Oral 1120 240 180 Output: Urine 320 320 Other: # Voids 5 1 # Bowel Movements 1 GENERAL DESCRIPTION: Elderly male lying in bed, no distress. No tachypnea or accessory muscle of respiration use. HEENT: Shows Pallor , no scleral icterus. Oral mucous membrane is dry. No pharyngeal erythema or thrush NECK: Trachea central, no thyromegaly. LUNGS: Unlabored breathing. Decreased intensity of breath sounds. No wheeze or crackle. HEART: S1, S2, regular rate and rhythm. No loud murmur ABDOMEN: Soft, no tenderness , guarding or rigidity, no organomegaly EXTREMITIES: Left elbow did have a superficial ulcer no significant surrounding redness or drainage SKIN: No rash, no masses palpable. NEUROLOGICAL: The patient is awake, alert, however not elevated good historian orientation could not be determined Results CBC & Chem 7: 11/28/21 05:14 11/28/21 05:14 Labs: Abnormal Lab Results - Last 24 Hours (Table) 11/27/21 11/28/21 11/28/21 Range/Units 15:03 01:33 05:14 WBC (3.8-10.6) k/uL RBC (4.30-5.90) m/uL Hgb (13.0-17.5) gm/dL Hct (39.0-53.0) % MCV (80.0-100.0) fL Neutrophils # (1.3-7.7) k/uL Lymphocytes # (1.0-4.8) k/uL Sodium (137-145) mmol/L BUN (9-20) mg/dL Glucose (74-99) mg/dL Plasma Lactic Acid Paco 3.2 H* 4.4 H* (0.7-2.0) mmol/L Calcium (8.4-10.2) mg/dL Procalcitonin 5.27 H (0.02-0.09) ng/mL 11/28/21 11/28/21 Range/Units 05:14 05:14 WBC 15.5 H (3.8-10.6) k/uL RBC 3.63 L (4.30-5.90) m/uL Hgb 11.7 L (13.0-17.5) gm/dL Hct 37.5 L (39.0-53.0) % MCV 103.2 H (80.0-100.0) fL Neutrophils # 14.2 H (1.3-7.7) k/uL Lymphocytes # 0.6 L (1.0-4.8) k/uL Sodium 136 L (137-145) mmol/L BUN 24 H (9-20) mg/dL Glucose 149 H (74-99) mg/dL Plasma Lactic Acid Paco (0.7-2.0) mmol/L Calcium 8.3 L (8.4-10.2) mg/dL Procalcitonin (0.02-0.09) ng/mL Microbiology - Last 24 Hours (Table) 11/26/21 07:46 Blood Culture - Preliminary Blood No Growth after 48 hours 11/26/21 04:53 Gram Stain - Final Sputum Sputum Culture - Final Alexandra albicans 11/24/21 20:07 Blood Culture Gram Stain - Final Blood Blood Culture - Final Streptococcus pneumoniae 11/24/21 19:30 Blood Culture Gram Stain - Final Blood Blood Culture - Final Streptococcus pneumoniae 11/24/21 17:15 Blood Culture Gram Stain - Final Blood Blood Culture - Final Streptococcus pneumoniae 11/24/21 17:00 Blood Culture Gram Stain - Final Blood Blood Culture - Final Streptococcus pneumoniae Assessment and Plan (1) Pneumonia Current Visit: Yes Status: Acute Code(s): J18.9 - PNEUMONIA, UNSPECIFIED ORGANISM SNOMED Code(s): 695625297 Plan: 1patient with a strep pneumo bacteremia source likely pneumonia in this patient presented to hospital with increasing shortness of breath and cough and evidence of pulmonary infiltrate and elevated procalcitonin. 2patient with a left elbow wound but no significant redness fluctuation or drainage was noticed x-rays were negative for any bony changes clinically not behaving as a left elbow olecranon bursitis or osteomyelitis. 3Rocephin 2 g daily to continue. 4we will check inflammatory markers We will follow on clinical condition and cultures to further adjust medication if needed Thank you for this consultation will follow this patient along with you Time with Patient: Greater than 30
[2021-11-29] MEDS: methylPREDNISolone SOD SUCCI 40 MG/ML 1 ML VIAL IV SCH ×4 (00:37→23:53)
[2021-11-29] MEDS: IPRATROPIUM-ALBUTEROL 3 ML NEB INHALATION SCH ×7 (02:09→23:40)
[2021-11-29] MEDS: SODIUM CHLORIDE 0.9% 1,000 ML IV SCH (03:59)
[2021-11-29] MEDS: oxyCODONE-APAP 10-325MG 1 EACH TAB PO SCH ×3 (06:54→16:12)
[2021-11-29] MEDS: SYMBICORT 160-4.5 MCG INHALER INHALATION SCH ×2 (07:31→20:40)
[2021-11-29] MEDS: CHOLECALCIFEROL 125 MCG (5000 IU) TABLET PO SCH (07:59)
[2021-11-29] MEDS: RIVAROXABAN 2.5 MG TABLET PO SCH ×2 (07:59→21:31)
[2021-11-29] MEDS: GABAPENTIN 300 MG CAP PO SCH ×3 (07:59→21:31)
[2021-11-29] MEDS: THIAMINE 100 MG TAB PO SCH (07:59)
[2021-11-29] MEDS: cloNIDine HCL 0.2 MG TAB PO PRN (08:11)
[2021-11-29] MEDS: ALPRAZolam 0.25 MG TAB PO PRN (08:12)
--- NOTE | 2021-11-29 11:54 | P.PN ---
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 Patient was seen at bedside this morning resting comfortably lying in donato irecumbent position. Patient's daughter, who says she is power of die maker apprentice for the patient was present during the encounter. I did discuss with the patient's daughter the history of patient's left elbow. Patient's daughter did say about 2 months ago the patient and daughter noticed the patient's left elbow was inflamed and red. Patient's daughter says she did take patient into his PCP, Dr. Henderson, where he performed steroid injection. Patient's daughter says about 1 month later she noticed the patients elbow was bothering him and she noticed pus draining from his elbow. She says she took him to urgent care where they washed out the left elbow and packed it with gauze while taking a culture of the elbow. She said patient was placed on antibiotics. Patient's daughter says the patient did have a follow-up appointment with his primary care provider where gauze was removed from wound. Patient says his elbow is bothering him today, but is about the same as yesterday. There is Kerlix wrap present over the left elbow at this time. Patient denies increasing chest pain, nausea, vo miting, change in vision, loss of bowel/bladder control. Objective - Vital Signs Vital signs: Vital Signs Temp 97.2 F L 11/29/21 07:55 Pulse 90 11/29/21 11:41 Resp 24 11/29/21 07:55 BP 190/80 11/29/21 07:55 Pulse Ox 93 L 11/29/21 07:55 Intake & Output 11/28/21 11/29/21 11/29/21 18:59 06:59 18:59 Intake Total 440 120 Output Total 1040 Balance 440 -1040 120 Intake: Oral 440 120 Output: Urine 1040 Other: Voiding Method Urinal Urinal # Voids 2 1 1 # Bowel Movements 1 1 - Exam Left upper extremity: Inspection: Kerlix bandage present over the left elbow. Open wound present over left elbow approximately 2 cm in diameter rounded shape. Negative for any drainage from the wound. The wound was inspected and the proximal portion the ulna can be visualized. Negative for any fluctuance/purulence. Left forearm there is mild to moderate edema. Sensation: Sensation is equal, symmetric, bilaterally intact throughout the upper extremities. Palpation: Moderate tenderness to palpation near the open wound on the left el bow. Nontender to palpation throughout the rest of exam Range of motion: Patient is able to fully extend and flex left elbow with known to very minimal pain in the left elbow. Patient is also able pronate and supinate left arm without pain. Patient has full flexion-extension left wrist. Event Management Consultant strength is 4+/5 bilaterally. Patient has full range of motion in left shoulder abduction and forward elevation. Motor: 4/5 resisted left elbow flexion/extension, left wrist flexion/extension in left shoulder resisted abduction and flexion. Neurovascular status: Refill under 3 seconds in digits of upper extremities. Radial pulses intact, 2+ bilaterally. Special tests: Negative Homans bilaterally - Labs CBC & Chem 7: 11/28/21 05:14 11/28/21 05:14 Labs: Microbiology - Last 24 Hours (Table) 11/28/21 10:36 Gram Stain - Preliminary Elbow - Left Wound Culture - Preliminary 11/26/21 07:46 Blood Culture - Preliminary Blood No Growth after 72 hours 11/26/21 04:53 Gram Stain - Final Sputum Sputum Culture - Final Alexandra albicans Assessment and Plan Assessment: 1. Presumptive subacute left ulna osteomyelitis s/p septic olecranon bursitis I&D with non healing open wound with exposed bone. 2. Multiple medical comorbidities Plan: 1. Patient seen at bedside this morning. There is evidence of open soft tissue wound extending to the dorsal aspect of the ulna/olecranon due to non healing wound after an outpatient I&D of septic olecranon bursitis roughly 2 months ago. MRI of the elbow could be considered for further localization of wound/osteomyelitis but if patient not able to tolerate MRI the recommendation is that he will require formal I&D with intra-op bone cultures in OR if or when deemed medically fit. If patient not medically fit for surgery I recommend continuation of antibiotics and local wound care. Findings are not consistent with bursitis, by definition a wound with direct tract to exposed bone is osteomyelitis, plain radiographic imaging findings typically lag 2 weeks behind infection and typically 50% bone loss must be present before any actual bone loss or involvement is present on X-ray. 2. Multiple medical comorbidities 3. Appreciate medical management; appreciate pulmonary management 4. Pain management - gabapentin; oxycodone 5. DVT prophylaxis - Xarelto 6. PT/OT - [facility]AT -Brady Marina DO Orthopedic Hand/Upper Extremity Surgeon Time with Patient: Less than 30
--- NOTE | 2021-11-29 12:16 | P.PN ---
Subjective Progress Note Date: 11/29/21 This a pleasant 76-year-old male patient with a known history of coronary artery disease congestive heart failure, T CVA/TIA, dementia, hypertension, hyperlipidemia, pulmonary embolism and maintained on Xarelto., He also has a history of chronic obstructive pulmonary disease with FEV1 value of 49% of pred icted. He had a previous heavy smoking tobacco history but quit back in 2016. He presented here to the emergency room yesterday with a three-day history of increasing shortness of breath. He was also found to be in a tachycardic. He received Lopressor in the emergency department. Chest x-ray revealed scattered airspace opacities within the left mid and lower lung hernandes. Background COPD changes. White count 18.6. Hemoglobin 13.4. Sodium 139. Potassium 4.7. BUN 22. Creatinine 1.27. Glucose 194. Lactic acid 3.0. Troponin negative times one. ProBNP 183. Coronavirus PCR not detected. Legioinella antigen negative. Blood cultures reveal no growth. He's been initiated on ceftriaxone and azithromycin along with bronchodilators and IV solu Medrol. Anticoagulated with Xarelto. On 11/26/2021 patient seen in follow-up on selective care unit, he states he is still coughing, feels congested, at times she is able to bring up some whitish colored sputum. Sputum specimen has been sent and results are pending, patient remains on Zosyn for antibiotic coverage, his been afebrile overnight, pro- calcitonin is significantly elevated at 18.4,multiple blood cultures were positive for strep pneumonia. Repeat blood culture has been ordered and pending at this time. Lung sounds reveal diffuse wheezes, rhonchi. Patient has an over [id number] smoking history, in remission for last 10 years, patient has advanced COPD he is only on home oxygen at 3-4 L and maintenance dose prednisone 10 mg daily. On IV Solu-Medrol 40 mg every 12 hours, DuoNeb 4 times a day. Currently amiodarone drip has been discontinued, patient is currently in sinus mechanism with a controlled rate. He is on Xarelto 2.5 mg BID. On 11/27/2021 patient seen in follow-up on selective care unit. Patient is quiet bronchospastic today, has a congested cough, at times he is able to bring up some whitish colored phlegm, he remains on Zosyn, sputum culture was sent, preliminary Gram stain shows few PMNs, many gram-positive cocci, few gram- positive bacilli. Follow-up blood culture from 11/26/2021 has shown no growth thus far. Afebrile. Vital signs have been stable, he remains on 3 L of oxygen pulse ox is 96%, yesterday we increased his IV steroids to 60 g every 6 hours, he is getting breathing treatments on an as-needed basis which we will switch to scheduled bases. On 11/28/2021 patient seen in follow-up on [facility] care unit. Patient is on 4 L of oxygen pulse ox is 92%, is hypertensive, he is a bit anxious at times, still has a congested cough, he is bringing up some yellowish colored phlegm, his been afebrile, he remains on antibiotics, steroids switched him to IV Rocephin 2 g every 24 hours, today we'll contact the IV steroids and will continue on breathing treatments. Patient's daughters at the bedside and she states patient has been having pain swelling and drainage out of a wound on his left elbow which had been there for the last 3 weeks, and had been treated with oral antibiotics and steroid injection at the PCPs office. The left elbow is wrapped, there is some serous drainage, after removing the wraps there is open ulcer, does not appear to be infected, but will be cultured nevertheless. Patient does have swelling surrounding the area and upper forearm and lower arm as well. 11/29/2021, the patient is being seen for a follow-up. His condition is stable. Remains on IV Rocephin 2 g every 24 hours. He is known to have streptococcal pneumonia bacteremia. He remains on bronchodilators. He remains on steroids. Overall respiratory status is stable. There was a concern for a left elbow osteomyelitis. The patient was seen by orthopedic surgery. Cultures were obtained. X-ray did not show any osteomyelitis yet on examination, the wound is deep and the bone can be easily controlled highly suggestive underlying osteomyelitis. The patient remains on IV Rocephin. Counts are essentially improving as the patient has a white cell count of 15 with a hemoglobin of 11.6 and the lactic acid level is down to 1.2. Legionella urine antigen is been negative. Objective - Vital Signs Vital signs: Vital Signs Temp 97.2 F L 11/29/21 07:55 Pulse 90 11/29/21 11:41 Resp 24 11/29/21 07:55 BP 190/80 11/29/21 07:55 Pulse Ox 93 L 11/29/21 07:55 Intake & Output 11/28/21 11/29/21 11/29/21 18:59 06:59 18:59 Intake Total 440 120 Output Total 1040 Balance 440 -1040 120 Intake: Oral 440 120 Output: Urine 1040 Other: Voiding Method Urinal Urinal # Voids 2 1 1 # Bowel Movements 1 1 - Exam GENERAL EXAM: Alert, pleasant, 76-year-old white male, on 4 L of oxygen pulse ox is 92-96%, comfortable in no apparent distress. HEAD: Normocephalic/atraumatic. EYES: Normal reaction of pupils, equal size. Conjunctiva pink, sclera white. NOSE: Clear with pink turbinates. THROAT: No erythema or exudates. NECK: No masses, no JVD, no thyroid enlargement, no adenopathy. CHEST: No chest wall deformity. Symmetrical expansion. LUNGS: Equal air entry with diffuse wheezes and rhonchi CVS: Regular rate and rhythm, normal S1 and S2, no gallops, no murmurs, no rubs ABDOMEN: Soft, nontender. No hepatosplenomegaly, normal bowel sounds, no guarding or rigidity. EXTREMITIES: No clubbing, no edema, no cyanosis, 2+ pulses and upper and lower extremities. MUSCULOSKELETAL: Muscle strength and tone normal. Left elbow swelling and open ulcer on left elbow SPINE: No scoliosis or deformity SKIN: No rashes CENTRAL NERVOUS SYSTEM: Alert and oriented -3. No focal deficits, tone is normal in all 4 extremities. PSYCHIATRIC: Alert and oriented -3. Appropriate affect. Intact judgment and insight. - Labs CBC & Chem 7: 11/28/21 05:14 11/28/21 05:14 Labs: Microbiology - Last 24 Hours (Table) 11/28/21 10:36 Gram Stain - Preliminary Elbow - Left Wound Culture - Preliminary 11/26/21 07:46 Blood Culture - Preliminary Blood No Growth after 72 hours 11/26/21 04:53 Gram Stain - Final Sputum Sputum Culture - Final Alexandra albicans Assessment and Plan Assessment: 1 Acute on chronic hypoxic respiratory failure secondary to an acute community- acquired pneumonia mainly in the left lung, this is likely an occult pneumonia as the patient had positive pneumococcal bacteremia on multiple blood cultures and the patient remains on 2 g of IV Rocephin. Clinically improving. The Pronestyl level is improving. The white cell count is improving her lactic acid level is also normalized. 2 Acute exacerbation of chronic obstructive pulmonary disease secondary to above. FEV1 value of 41% of predicted 3 History of pulmonary embolism, anticoagulated with Xarelto 4 Hypertension 5 History of congestive heart failure 6 Chronic thoracic back pain 7 Benign prosthetic hyperplasia 8 Lumbar spondylosis with myelopathy 9 Dementia 10 left elbow osteomyelitis/open wound and the bone can be probed. X-rays not is suggestive of osteopenia Plan: Continue bronchodilators Continue ceftriaxone and azithromycin for now Check a pro-calcitonin is improving Continue DuoNeb inhalations, IV Solu-Medrol We will continue to follow and make further recommendations based on his clinical status Input from orthopedic surgery and infectious disease has been appreciated
--- NOTE | 2021-11-29 15:49 | P.PN ---
Subjective Progress Note Date: 11/29/21 Principal diagnosis: Strep pneumo bacteremia pneumonia and a question of left elbow bursitis Patient is a 76-year-old male presented to the hospital with shortness of breath and cough with evidence of pneumonia and did have evidence of strep pneumo bacteremia, sputum has been cannula and the blood culture has been negative patient also having a problem with the left elbow which seemed to have been treated in the outpatient setting and culture were done to which I do not have any excess at this point , x-rays of the elbow did not show any bony changes. On today's evaluation that is 11/29/2021, the patient is afebrile, complaining of some shortness of breath, denies any chest pain or any worsening cough no abdominal pain is complaining of some pain to the left elbow area however was unable to quantify it any further Objective - Vital Signs Vital signs: Vital Signs Temp 97.2 F L 11/29/21 07:55 Pulse 90 11/29/21 11:41 Resp 24 11/29/21 07:55 BP 190/80 11/29/21 07:55 Pulse Ox 93 L 11/29/21 07:55 Intake & Output 11/28/21 11/29/21 11/29/21 18:59 06:59 18:59 Intake Total 440 238 Output Total 1040 Balance 440 -1040 238 Intake: Oral 440 238 Output: Urine 1040 Other: Voiding Method Urinal Urinal # Voids 2 1 1 # Bowel Movements 1 1 - Exam GENERAL DESCRIPTION: An elderly male lying in bed in no distress RESPIRATORY SYSTEM: Unlabored breathing , decreased breath sounds at bases HEART: S1 S2 regular rate and rhythm , ABDOMEN: Soft , no tenderness EXTREMITIES: Left elbow is currently dressed no drainage on the dressing - Labs CBC & Chem 7: 11/28/21 05:14 11/28/21 05:14 Labs: Microbiology - Last 24 Hours (Table) 11/28/21 11:15 Blood Culture - Preliminary Blood No Growth after 24 hours 11/28/21 11:25 Blood Culture - Preliminary Blood No Growth after 24 hours 11/28/21 10:36 Gram Stain - Preliminary Elbow - Left Wound Culture - Preliminary 11/26/21 07:46 Blood Culture - Preliminary Blood No Growth after 72 hours Assessment and Plan (1) Pneumonia Current Visit: Yes Status: Acute Code(s): J18.9 - PNEUMONIA, UNSPECIFIED ORGANISM SNOMED Code(s): 867727578 Plan: 1patient with a strep pneumo bacteremia source likely pneumonia in this patient presented to hospital with increasing shortness of breath and cough and evidence of pulmonary infiltrate and elevated procalcitonin. 2patient with a left elbow wound and apparently the patient did have a I&D done in the outpatient setting seems like a BURSITIS and did have outpatient cultures to try to obtain, x-rays were negative for any bony changes , orthopedic is recommending MRI and surgical drainage 3patient to continue with Rocephin 2 g daily to continue. 4 inflammatory markers are currently pending as well as culture from the left elbow Time with Patient: Less than 30
--- NOTE | 2021-11-29 18:32 | P.PN ---
Subjective Progress Note Date: 11/29/21 Patient was seen and examined. No acute events overnight. Patient continues to report what cough and unable to bring up sputum. He reports slight improvement in his breathing since admission. He denies any chest pain or palpitations. No nausea or vomiting. No fever or chills. He continues to be on Rocephin for streptococcal pneumonia and bacteremia. Legionella antigen negative. Currently on 4 L nasal cannula. Pro-calcitonin improved from 18.4-5.27 on current IV antibiotics. Objective - Vital Signs Vital signs: Vital Signs Temp 97.7 F 11/29/21 16:00 Pulse 86 11/29/21 17:02 Resp 24 11/29/21 16:00 BP 172/104 11/29/21 16:00 Pulse Ox 99 11/29/21 16:00 Intake & Output 11/28/21 11/29/21 11/29/21 18:59 06:59 18:59 Intake Total 440 608 Output Total 1040 400 Balance 440 -1040 208 Intake: IV 50 cefTRIAXone 2 gm In 50 Sodium Chloride 0.9% 50 ml @ 100 mls/hr IVPB Q24HR [facility] Rx#:[id number] Oral 440 558 Output: Urine 1040 400 Other: Voiding Method Urinal Urinal # Voids 2 1 1 # Bowel Movements 1 1 - Exam General: [non toxic], [no distress], [appears at stated age] Derm: [warm], [dry] Head: [atraumatic], [normocephalic], [symmetric] Eyes: [EOMI], [no lid lag], [anicteric sclera] Mouth: [no lip lesion], [mucus membranes moist] Cardiovascular: [S1S2 reg], [no murmur], [positive posterior tibial pulse bilateral], Lungs: [Decreased breath sounds bilateral], [no rhonchi, no rales] , [no accessory muscle use] Abdominal: [soft], [ nontender to palpation], [no guarding], [no appreciable organomegaly] Ext: [no gross muscle atrophy], [no edema], [no contractures] Neuro: [no focal neuro deficits] Psych: [Alert], [oriented], [appropriate affect] - Labs CBC & Chem 7: 11/28/21 05:14 11/28/21 05:14 Labs: Microbiology - Last 24 Hours (Table) 11/28/21 11:15 Blood Culture - Preliminary Blood No Growth after 24 hours 11/28/21 11:25 Blood Culture - Preliminary Blood No Growth after 24 hours 11/28/21 10:36 Gram Stain - Preliminary Elbow - Left Wound Culture - Preliminary 11/26/21 07:46 Blood Culture - Preliminary Blood No Growth after 72 hours Assessment and Plan Assessment: Assessment: #1 sepsis secondary to community acquired pneumonia #2 acute hypoxic respiratory distress secondary to COPD exacerbation secondary to above #3 lactic acidosis secondary to sepsis #4 bacteremia secondary to strep pneumo #5 hyperlipidemia #6 history of pulmonary embolism on anticoagulation #7 question of left elbow osteomyelitis Plan: -Admit to medicine for close monitoring -Aspiration/fall precaution -Patient continued on Rocephin 2 g IV daily. -Supplemental O2 to maintain O2 saturation greater than 92% -Continue bronchodilators with DuoNeb scheduled and as needed for shortness of breath and wheezing. -Repeat blood cultures currently negative. -Continue with IV methylprednisolone -Gentle hydration with IV fluids GEN lactic acid normalized -DVT prophylaxis Xarelto -Orthopedic surgery consulted for possible left elbow osteomyelitis, recommend MRI elbow and possible I&D in the future neck sign DVT prophylaxis: Patient is on Xarelto Patient is pending clinical improvement.
[2021-11-30] MEDS: IPRATROPIUM-ALBUTEROL 3 ML NEB INHALATION SCH ×5 (04:04→20:50)
[2021-11-30] MEDS: cloNIDine HCL 0.2 MG TAB PO PRN ×3 (04:35→23:14)
[2021-11-30] MEDS: SODIUM CHLORIDE 0.9% 1,000 ML IV SCH (05:42)
[2021-11-30] MEDS: oxyCODONE-APAP 10-325MG 1 EACH TAB PO SCH ×3 (06:56→17:22)
[2021-11-30] MEDS: CHOLECALCIFEROL 125 MCG (5000 IU) TABLET PO SCH (08:11)
[2021-11-30] MEDS: THIAMINE 100 MG TAB PO SCH (08:11)
[2021-11-30] MEDS: methylPREDNISolone SOD SUCCI 40 MG/ML 1 ML VIAL IV SCH (08:11)
[2021-11-30] MEDS: RIVAROXABAN 2.5 MG TABLET PO SCH ×2 (08:11→21:10)
[2021-11-30] MEDS: GABAPENTIN 300 MG CAP PO SCH ×3 (08:11→21:10)
[2021-11-30] MEDS: SYMBICORT 160-4.5 MCG INHALER INHALATION SCH ×2 (08:20→20:50)
[2021-11-30 09:06] LABS: HGB 11.7 gm/dL (13.0-17.5); Hypochromasia Slight; MCH 32.7 pg (25.0-35.0); MCHC 31.7 g/dL (31.0-37.0); MCV 103.1 fL (80.0-100.0); Macrocytosis Slight; Mean Platelet Volume 7.4; Platelet Count 367 k/uL (150-450); RBC 3.59 m/uL (4.30-5.90); RDW 13.1 % (11.5-15.5); WBC 12.9 k/uL (3.8-10.6)
[2021-11-30 09:16] LABS: African American GFR (CKD) >90 (>60 ml/min/1.73 sqM); Anion Gap 6 mmol/L; Blood Urea Nitrogen 21 mg/dL (9-20); Calcium 8.6 mg/dL (8.4-10.2); Carbon Dioxide 29 mmol/L (22-30); Chloride 103 mmol/L (98-107); Glucose 241 mg/dL (74-99); Non-African American GFR(CKD) 84 (>60 ml/min/1.73 sqM); Potassium 4.1 mmol/L (3.5-5.1); Sodium 138 mmol/L (137-145)
[2021-11-30 09:38] LABS: C Reactive Protein 2.6 mg/dL (<1.0)
--- NOTE | 2021-11-30 10:04 | P.PN ---
Subjective Progress Note Date: 11/30/21 Principal diagnosis: Ulcer, left elbow Patient was seen at bedside this morning lying in semirecumbent position. Patient still has Kerlix bandage present over the left elbow. Patient still says he is having some pain in the left elbow. Patient denies increasing chest pain, nausea, vomiting, change in vision, loss of bowel/bladder control. Objective - Vital Signs Vital signs: Vital Signs Temp 97.6 F 11/30/21 08:07 Pulse 86 11/30/21 08:30 Resp 22 11/30/21 08:07 BP 147/66 11/30/21 08:07 Pulse Ox 96 11/30/21 08:07 Intake & Output 11/29/21 11/30/21 11/30/21 18:59 06:59 18:59 Intake Total 608 260 Output Total 400 Balance 208 260 Intake: IV 50 cefTRIAXone 2 gm In 50 Sodium Chloride 0.9% 50 ml @ 100 mls/hr IVPB Q24HR [facility] Rx#:[id number] Oral 558 260 Output: Urine 400 Other: Voiding Method Urinal # Voids 1 0 # Bowel Movements 1 1 - Exam Left upper extremity: Inspection: Kerlix bandage present over the left elbow. Open wound present over left elbow approximately 2 cm in diameter rounded shape. Negative for any drainage from the wound. The wound was inspected and the proximal portion the ulna can be visualized. Negative for any fluctuance/purulence. Left forearm there is mild to moderate edema. Sensation: Sensation is equal, symmetric, bilaterally intact throughout the upper extremities. Palpation: Moderate tenderness to palpation near the open wound on the left elbow. Nontender to palpation throughout the rest of exam Range of motion: Patient is able to fully extend and flex left elbow with known to very minimal pain in the left elbow. Patient is also able pronate and supinate left arm without pain. Patient has full flexion-extension left wrist. Mental Health Clinician strength is 4+/5 bilaterally. Patient has full range of motion in left sh oulder abduction and forward elevation. Motor: 4/5 resisted left elbow flexion/extension, left wrist flexion/extension in left shoulder resisted abduction and flexion. Neurovascular status: Refill under 3 seconds in digits of upper extremities. Radial pulses intact, 2+ bilaterally. Special tests: Negative Homans bilaterally - Labs CBC & Chem 7: 11/30/21 08:40 11/30/21 08:40 Labs: Abnormal Lab Results - Last 24 Hours (Table) 11/30/21 11/30/21 Range/Units 08:40 08:40 WBC 12.9 H (3.8-10.6) k/uL RBC 3.59 L (4.30-5.90) m/uL Hgb 11.7 L (13.0-17.5) gm/dL Hct 37.0 L (39.0-53.0) % MCV 103.1 H (80.0-100.0) fL BUN 21 H (9-20) mg/dL Glucose 241 H (74-99) mg/dL C-Reactive Protein 2.6 H (<1.0) mg/dL Microbiology - Last 24 Hours (Table) 11/28/21 11:15 Blood Culture - Preliminary Blood No Growth after 24 hours 11/28/21 11:25 Blood Culture - Preliminary Blood No Growth after 24 hours 11/28/21 10:36 Gram Stain - Preliminary Elbow - Left Wound Culture - Preliminary 11/26/21 07:46 Blood Culture - Preliminary Blood No Growth after 72 hours Assessment and Plan Assessment: 1. 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 Plan: 1. Patient will likely need an incision and debridement with closure of open wound of the left elbow if medically fit for surgery in near future. Due to chronicity of open wound with exposed bone after septic olecranon bursitis I&D 2 months prior the wound is unlikely to close by secondary intention. We'll continue to keep the left elbow wrapped with Kerlix bandage at this time. We'll continue follow patient while in hospital. 2. Multiple medical comorbidities 3. Appreciate medical management; appreciate pulmonary management 4. Pain management - gabapentin; oxycodone 5. DVT prophylaxis - Xarelto 6. PT/OT - [facility] -Brady Marina DO Orthopedic Hand/Upper Extremity Surgeon Time with Patient: Less than 30
[2021-11-30 10:25] LABS: Erythrocyte Sedimentation Rate 35 mm/hr (0-15)
--- NOTE | 2021-11-30 12:17 | P.PN ---
Subjective Progress Note Date: 11/30/21 This a pleasant 76-year-old male patient with a known history of coronary artery disease congestive heart failure, T CVA/TIA, dementia, hypertension, hyperlipidemia, pulmonary embolism and maintained on Xarelto., He also has a history of chronic obstructive pulmonary disease with FEV1 value of 49% of pred icted. He had a previous heavy smoking tobacco history but quit back in 2016. He presented here to the emergency room yesterday with a three-day history of increasing shortness of breath. He was also found to be in a tachycardic. He received Lopressor in the emergency department. Chest x-ray revealed scattered airspace opacities within the left mid and lower lung hernandes. Background COPD changes. White count 18.6. Hemoglobin 13.4. Sodium 139. Potassium 4.7. BUN 22. Creatinine 1.27. Glucose 194. Lactic acid 3.0. Troponin negative times one. ProBNP 183. Coronavirus PCR not detected. Legioinella antigen negative. Blood cultures reveal no growth. He's been initiated on ceftriaxone and azithromycin along with bronchodilators and IV solu Medrol. Anticoagulated with Xarelto. On 11/26/2021 patient seen in follow-up on selective care unit, he states he is still coughing, feels congested, at times she is able to bring up some whitish colored sputum. Sputum specimen has been sent and results are pending, patient remains on Zosyn for antibiotic coverage, his been afebrile overnight, pro- calcitonin is significantly elevated at 18.4,multiple blood cultures were positive for strep pneumonia. Repeat blood culture has been ordered and pending at this time. Lung sounds reveal diffuse wheezes, rhonchi. Patient has an over [id number] smoking history, in remission for last 10 years, patient has advanced COPD he is only on home oxygen at 3-4 L and maintenance dose prednisone 10 mg daily. On IV Solu-Medrol 40 mg every 12 hours, DuoNeb 4 times a day. Currently amiodarone drip has been discontinued, patient is currently in sinus mechanism with a controlled rate. He is on Xarelto 2.5 mg BID. On 11/27/2021 patient seen in follow-up on selective care unit. Patient is quiet bronchospastic today, has a congested cough, at times he is able to bring up some whitish colored phlegm, he remains on Zosyn, sputum culture was sent, preliminary Gram stain shows few PMNs, many gram-positive cocci, few gram- positive bacilli. Follow-up blood culture from 11/26/2021 has shown no growth thus far. Afebrile. Vital signs have been stable, he remains on 3 L of oxygen pulse ox is 96%, yesterday we increased his IV steroids to 60 g every 6 hours, he is getting breathing treatments on an as-needed basis which we will switch to scheduled bases. On 11/28/2021 patient seen in follow-up on [facility] care unit. Patient is on 4 L of oxygen pulse ox is 92%, is hypertensive, he is a bit anxious at times, still has a congested cough, he is bringing up some yellowish colored phlegm, his been afebrile, he remains on antibiotics, steroids switched him to IV Rocephin 2 g every 24 hours, today we'll contact the IV steroids and will continue on breathing treatments. Patient's daughters at the bedside and she states patient has been having pain swelling and drainage out of a wound on his left elbow which had been there for the last 3 weeks, and had been treated with oral antibiotics and steroid injection at the PCPs office. The left elbow is wrapped, there is some serous drainage, after removing the wraps there is open ulcer, does not appear to be infected, but will be cultured nevertheless. Patient does have swelling surrounding the area and upper forearm and lower arm as well. 11/29/2021, the patient is being seen for a follow-up. His condition is stable. Remains on IV Rocephin 2 g every 24 hours. He is known to have streptococcal pneumonia bacteremia. He remains on bronchodilators. He remains on steroids. Overall respiratory status is stable. There was a concern for a left elbow osteomyelitis. The patient was seen by orthopedic surgery. Cultures were obtained. X-ray did not show any osteomyelitis yet on examination, the wound is deep and the bone can be easily controlled highly suggestive underlying osteomyelitis. The patient remains on IV Rocephin. Counts are essentially improving as the patient has a white cell count of 15 with a hemoglobin of 11.6 and the lactic acid level is down to 1.2. Legionella urine antigen is been negative. 11/30/2021, I'm seeing the patient for a follow-up. Clinically stable. No new complaints. Remains on IV Rocephin regarding pneumococcal bacteremia. The patient also had a left lower lobe pneumonia. The patient remains on bronchodilators. The patient remains on IV Solu-Medrol. I'm going to d iscontinue the IV Solu Medrol start the patient prednisone burst taper. At the same time, the patient has possibly an osteomyelitis of the left elbow. Orthopedic surgery and infectious disease are both on the case. He is tolerating his diet. No nausea. No vomiting. He remains on long-term brina culation with Xarelto. No other significant events over the past 24 hours. Overall respiratory status is stable. IV fluids are currently at KVO. Objective - Vital Signs Vital signs: Vital Signs Temp 97.6 F 11/30/21 08:07 Pulse 92 11/30/21 12:09 Resp 22 11/30/21 08:07 BP 147/66 11/30/21 08:07 Pulse Ox 96 11/30/21 08:07 Intake & Output 11/29/21 11/30/21 11/30/21 18:59 06:59 18:59 Intake Total 608 260 Output Total 400 Balance 208 260 Intake: IV 50 cefTRIAXone 2 gm In 50 Sodium Chloride 0.9% 50 ml @ 100 mls/hr IVPB Q24HR [facility] Rx#:[id number] Oral 558 260 Output: Urine 400 Other: Voiding Method Urinal # Voids 1 0 # Bowel Movements 1 1 - Exam GENERAL EXAM: Alert, pleasant, 76-year-old white male, on 4 L of oxygen pulse ox is 92-96%, comfortable in no apparent distress. HEAD: Normocephalic/atraumatic. EYES: Normal reaction of pupils, equal size. Conjunctiva pink, sclera white. NOSE: Clear with pink turbinates. THROAT: No erythema or exudates. NECK: No masses, no JVD, no thyroid enlargement, no adenopathy. CHEST: No chest wall deformity. Symmetrical expansion. LUNGS: Equal air entry with diffuse wheezes and rhonchi CVS: Regular rate and rhythm, normal S1 and S2, no gallops, no murmurs, no rubs ABDOMEN: Soft, nontender. No hepatosplenomegaly, normal bowel sounds, no guarding or rigidity. EXTREMITIES: No clubbing, no edema, no cyanosis, 2+ pulses and upper and lower extremities. MUSCULOSKELETAL: Muscle strength and tone normal. Left elbow swelling and open ulcer on left elbow SPINE: No scoliosis or deformity SKIN: No rashes CENTRAL NERVOUS SYSTEM: Alert and oriented -3. No focal deficits, tone is normal in all 4 extremities. PSYCHIATRIC: Alert and oriented -3. Appropriate affect. Intact judgment and insight. - Labs CBC & Chem 7: 11/30/21 08:40 11/30/21 08:40 Labs: Abnormal Lab Results - Last 24 Hours (Table) 11/30/21 11/30/21 Range/Units 08:40 08:40 WBC 12.9 H (3.8-10.6) k/uL RBC 3.59 L (4.30-5.90) m/uL Hgb 11.7 L (13.0-17.5) gm/dL Hct 37.0 L (39.0-53.0) % MCV 103.1 H (80.0-100.0) fL ESR 35 H (0-15) mm/hr BUN 21 H (9-20) mg/dL Glucose 241 H (74-99) mg/dL C-Reactive Protein 2.6 H (<1.0) mg/dL Microbiology - Last 24 Hours (Table) 11/26/21 07:46 Blood Culture - Preliminary Blood No Growth after 96 hours 11/28/21 11:15 Blood Culture - Preliminary Blood No Growth after 24 hours 11/28/21 11:25 Blood Culture - Preliminary Blood No Growth after 24 hours 11/28/21 10:36 Gram Stain - Preliminary Elbow - Left Wound Culture - Preliminary Assessment and Plan Assessment: 1 Acute on chronic hypoxic respiratory failure secondary to an acute community- acquired pneumonia mainly in the left lung, this is likely secondary to pneumonia as the patient had positive pneumococcal bacteremia on multiple blood cultures and the patient remains on 2 g of IV Rocephin. Clinically improving. The Pronestyl level is improving. The white cell count is improving her lactic acid level is also normalized. 2 Acute exacerbation of chronic obstructive pulmonary disease secondary to above. FEV1 value of 41% of predicted 3 History of pulmonary embolism, anticoagulated with Xarelto 4 Hypertension 5 History of congestive heart failure 6 Chronic thoracic back pain 7 Benign prosthetic hyperplasia 8 Lumbar spondylosis with myelopathy 9 Dementia 10 left elbow osteomyelitis/open wound and the bone can be probed. X-rays not is suggestive of osteopenia Plan: Continue bronchodilators Continue IV Rocephin 2 g every 24 hours Discontinue the IV Solu Medrol put the patient prednisone burst taper Check a pro-calcitonin is improving Infectious disease and orthopedic surgeries on the case regarding the left elbow osteomyelitis We will continue to follow and make further recommendations based on his clinical status Input from orthopedic surgery and infectious disease has been appreciated
[2021-11-30] MEDS: predniSONE 20 MG TAB PO SCH (12:25)
--- NOTE | 2021-11-30 15:22 | P.PN ---
Subjective Principal diagnosis: Strep pneumonia and bacteremia Patient was seen and examined. No acute events overnight. Patient continues to report what cough and unable to bring up sputum. He reports generalized pain but mostly localized to his lower back. He denies any chest pain or palpitations. No nausea or vomiting. No fever or chills. He continues to be on Rocephin for streptococcal pneumonia and bacteremia. Legionella antigen negative. Currently on 4 L nasal cannula (he in on 3L NC at home). Pro- calcitonin improved from 18.4-5.27 on current IV antibiotics. Objective - Vital Signs Vital signs: Vital Signs Temp 97.2 F L 11/30/21 12:00 Pulse 92 11/30/21 12:09 Resp 20 11/30/21 12:00 BP 163/86 11/30/21 12:00 Pulse Ox 97 11/30/21 12:00 Intake & Output 11/29/21 11/30/21 11/30/21 18:59 06:59 18:59 Intake Total 608 380 Output Total 400 Balance 208 380 Intake: IV 50 cefTRIAXone 2 gm In 50 Sodium Chloride 0.9% 50 ml @ 100 mls/hr IVPB Q24HR [facility] Rx#:[id number] Oral 558 380 Output: Urine 400 Other: Voiding Method Urinal # Voids 1 0 2 # Bowel Movements 1 1 - Exam General: [non toxic], [no distress], [appears at stated age] Derm: [warm], [dry] Head: [atraumatic], [normocephalic], [symmetric] Eyes: [EOMI], [no lid lag], [anicteric sclera] Mouth: [no lip lesion], [mucus membranes moist] Cardiovascular: [S1S2 reg], [no murmur] Lungs: [Decreased breath sounds bilateral], [no rhonchi, no rales] , [no accessory muscle use] Ext: [no gross muscle atrophy], [no edema], [no contractures] Neuro: [no focal neuro deficits] Psych: [Alert], [oriented], [appropriate affect] - Labs CBC & Chem 7: 11/30/21 08:40 11/30/21 08:40 Labs: Abnormal Lab Results - Last 24 Hours (Table) 11/30/21 11/30/21 Range/Units 08:40 08:40 WBC 12.9 H (3.8-10.6) k/uL RBC 3.59 L (4.30-5.90) m/uL Hgb 11.7 L (13.0-17.5) gm/dL Hct 37.0 L (39.0-53.0) % MCV 103.1 H (80.0-100.0) fL ESR 35 H (0-15) mm/hr BUN 21 H (9-20) mg/dL Glucose 241 H (74-99) mg/dL C-Reactive Protein 2.6 H (<1.0) mg/dL Microbiology - Last 24 Hours (Table) 11/28/21 11:15 Blood Culture - Preliminary Blood No Growth after 48 hours 11/28/21 11:25 Blood Culture - Preliminary Blood No Growth after 48 hours 11/28/21 10:36 Gram Stain - Final Elbow - Left Wound Culture - Final 11/26/21 07:46 Blood Culture - Preliminary Blood No Growth after 96 hours Assessment and Plan Assessment: Assessment: #1 sepsis secondary to community acquired pneumonia #2 acute on chronic hypoxic respiratory distress secondary to COPD exacerbation secondary to above #3 lactic acidosis secondary to sepsis #4 bacteremia secondary to strep pneumo #5 hyperlipidemia #6 history of pulmonary embolism on anticoagulation #7 question of left elbow osteomyelitis Plan: -Admit to medicine for close monitoring -Aspiration/fall precaution -Patient continued on Rocephin 2 g IV daily. -Supplemental O2 to maintain O2 saturation greater than 92% -Continue bronchodilators with DuoNeb scheduled and as needed for shortness of breath and wheezing. -Robitussin ordered. -Repeat blood cultures currently negative at 48H. -SoluMedrol discontinued, started on Prednisone taper. -Gentle hydration with IV fluids -DVT prophylaxis Xarelto -Orthopedic surgery consulted for possible left elbow osteomyelitis, recommend MRI elbow and possible I&D in the future DVT prophylaxis: Patient is on Xarelto Patient is pending clinical improvement.
[2021-11-30] MEDS: ALPRAZolam 0.25 MG TAB PO PRN (17:22)
[2021-11-30] MEDS: guaiFENesin SYRUP 100MG/5ML 200 MG/10 ML CUP PO SCH ×2 (17:22→23:14)
--- NOTE | 2021-11-30 23:01 | P.PN ---
Subjective Progress Note Date: 11/30/21 Principal diagnosis: Strep pneumo bacteremia pneumonia and a question of left elbow bursitis Patient is a 76-year-old male presented to the hospital with shortness of breath and cough with evidence of pneumonia and did have evidence of strep pneumo bacteremia, sputum has been cannula and the blood culture has been negative patient also having a problem with the left elbow which seemed to have been treated in the outpatient setting and culture were done to which I do not have any excess at this point , x-rays of the elbow did not show any bony changes. On today's evaluation that is 11/30/2021, the patient remains to be afebrile, the patient is breathing comfortably on nasal cannula oxygen, the patient denies any chest pain or any worsening cough no abdominal pain , no worsening pain to the left elbow area Objective - Vital Signs Vital signs: Vital Signs Temp 97.2 F L 11/30/21 12:00 Pulse 92 11/30/21 12:09 Resp 20 11/30/21 12:00 BP 163/86 11/30/21 12:00 Pulse Ox 97 11/30/21 12:00 Intake & Output 11/29/21 11/30/21 11/30/21 18:59 06:59 18:59 Intake Total 608 380 Output Total 400 Balance 208 380 Intake: IV 50 cefTRIAXone 2 gm In 50 Sodium Chloride 0.9% 50 ml @ 100 mls/hr IVPB Q24HR [facility] Rx#:[id number] Oral 558 380 Output: Urine 400 Other: Voiding Method Urinal # Voids 1 0 2 # Bowel Movements 1 1 - Exam GENERAL DESCRIPTION: An elderly male lying in bed in no distress RESPIRATORY SYSTEM: Unlabored breathing , decreased breath sounds at bases HEART: S1 S2 regular rate and rhythm , ABDOMEN: Soft , no tenderness EXTREMITIES: Left elbow is currently dressed no drainage on the dressing - Labs CBC & Chem 7: 11/30/21 08:40 11/30/21 08:40 Labs: Abnormal Lab Results - Last 24 Hours (Table) 11/30/21 11/30/21 Range/Units 08:40 08:40 WBC 12.9 H (3.8-10.6) k/uL RBC 3.59 L (4.30-5.90) m/uL Hgb 11.7 L (13.0-17.5) gm/dL Hct 37.0 L (39.0-53.0) % MCV 103.1 H (80.0-100.0) fL ESR 35 H (0-15) mm/hr BUN 21 H (9-20) mg/dL Glucose 241 H (74-99) mg/dL C-Reactive Protein 2.6 H (<1.0) mg/dL Microbiology - Last 24 Hours (Table) 11/28/21 11:25 Blood Culture - Preliminary Blood No Growth after 48 hours 11/28/21 10:36 Gram Stain - Final Elbow - Left Wound Culture - Final 11/26/21 07:46 Blood Culture - Preliminary Blood No Growth after 96 hours 11/28/21 11:15 Blood Culture - Preliminary Blood No Growth after 24 hours Assessment and Plan (1) Pneumonia Current Visit: Yes Status: Acute Code(s): J18.9 - PNEUMONIA, UNSPECIFIED ORGANISM SNOMED Code(s): 972512779 Plan: 1patient with a strep pneumo bacteremia source likely pneumonia in this patient presented to hospital with increasing shortness of breath and cough and evidence of pulmonary infiltrate and elevated procalcitonin. 2patient with a left elbow wound and apparently the patient did have a I&D done in the outpatient setting seems like a BURSITIS and did have outpatient cultures to try to obtain, x-rays were negative for any bony changes , culture done this admission has been negative so far 3patient to continue with Rocephin 2 g daily to continue. 4mildly elevated white count could be related to steroids Time with Patient: Less than 30
[2021-12-01] MEDS: IPRATROPIUM-ALBUTEROL 3 ML NEB INHALATION SCH ×7 (00:07→23:30)
[2021-12-01] MEDS: oxyCODONE-APAP 10-325MG 1 EACH TAB PO SCH ×3 (06:40→17:57)
[2021-12-01] MEDS: SODIUM CHLORIDE 0.9% 1,000 ML IV SCH (06:42)
[2021-12-01] MEDS: SYMBICORT 160-4.5 MCG INHALER INHALATION SCH ×2 (07:01→19:59)
[2021-12-01 10:10] VITALS: BMI 25.0
--- NOTE | 2021-12-01 10:22 | P.PN ---
Subjective Progress Note Date: 12/01/21 Principal diagnosis: Ulcer, left elbow Patient was seen at bedside this morning lying in semirecumbent position. Patient still has Kerlix bandage present over the left elbow. Patient still says he is having some pain in the left elbow. Patient denies increasing chest pain, nausea, vomiting, change in vision, loss of bowel/bladder control. Objective - Vital Signs Vital signs: Vital Signs Temp 98.0 F 12/01/21 04:00 Pulse 78 12/01/21 07:15 Resp 18 12/01/21 04:00 BP 184/82 12/01/21 04:00 Pulse Ox 97 12/01/21 07:02 Intake & Output 11/30/21 12/01/21 12/01/21 18:59 06:59 18:59 Intake Total 498 1080 120 Output Total 900 Balance 498 180 120 Weight 68.039 kg Intake: Oral 498 1080 120 Output: Urine 900 Other: Voiding Method Urinal # Voids 2 - Exam Left upper extremity: Inspection: Kerlix bandage present over the left elbow. Open wound present over left elbow approximately 2 cm in diameter rounded shape. Negative for any drainage from the wound. The wound was inspected and the proximal portion the ulna can be visualized. Negative for any fluctuance/purulence. Left forearm there is mild to moderate edema. Sensation: Sensation is equal, symmetric, bilaterally intact throughout the up per extremities. Palpation: Moderate tenderness to palpation near the open wound on the left elbow. Nontender to palpation throughout the rest of exam Range of motion: Patient is able to fully extend and flex left elbow with known to very minimal pain in the left elbow. Patient is also able pronate and supinate left arm without pain. Patient has full flexion-extension left wrist. [employer] strength is 4+/5 bilaterally. Patient has full range of motion in left shoulder abduction and forward elevation. Motor: 4/5 resisted left elbow flexion/extension, left wrist flexion/extension in left shoulder resisted abduction and flexion. Neurovascular status: Refill under 3 seconds in digits of upper extremities. Radial pulses intact, 2+ bilaterally. Special tests: Negative Homans bilaterally - Labs CBC & Chem 7: 11/30/21 08:40 11/30/21 08:40 Labs: Abnormal Lab Results - Last 24 Hours (Table) 11/30/21 Range/Units 08:40 ESR 35 H (0-15) mm/hr Microbiology - Last 24 Hours (Table) 11/26/21 07:46 Blood Culture - Preliminary Blood No Growth after 120 hours 11/28/21 11:15 Blood Culture - Preliminary Blood No Growth after 48 hours 11/28/21 11:25 Blood Culture - Preliminary Blood No Growth after 48 hours 11/28/21 10:36 Gram Stain - Final Elbow - Left Wound Culture - Final Assessment and Plan Assessment: 1. 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 Plan: 1. 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 We are planning for surgery this 12/03/2021 if patient can be cleared. If patient cannot be cleared for surgery during his inpatient stay, surgery can be perfromed within the next few weeks. Due to chronicity of open wound with exposed bone after septic olecranon bursitis I&D 2 months prior the wound is unlikely to close by secondary intention. We'll continue to keep the left elbow wrapped with Kerlix bandage at this time. We'll continue follow patient while in hospital. 2. Multiple medical comorbidities 3. Appreciate medical management; appreciate pulmonary management - patient does need medical, pulmonology, cardiac clearance for surgery 4. Pain management - gabapentin; oxycodone 5. DVT prophylaxis - Xarelto 6. PT/OT - WBAT Time with Patient: Less than 30
[2021-12-01] MEDS: guaiFENesin SYRUP 100MG/5ML 200 MG/10 ML CUP PO SCH ×3 (10:45→17:57)
[2021-12-01] MEDS: GABAPENTIN 300 MG CAP PO SCH ×3 (10:46→20:35)
[2021-12-01] MEDS: CHOLECALCIFEROL 125 MCG (5000 IU) TABLET PO SCH (10:46)
[2021-12-01] MEDS: THIAMINE 100 MG TAB PO SCH (10:46)
[2021-12-01] MEDS: predniSONE 20 MG TAB PO SCH (10:46)
[2021-12-01] MEDS: RIVAROXABAN 2.5 MG TABLET PO SCH ×2 (10:47→20:35)
[2021-12-01] MEDS: cloNIDine HCL 0.2 MG TAB PO PRN (15:04)
--- NOTE | 2021-12-01 15:09 | P.PN ---
Subjective Progress Note Date: 12/01/21 This a pleasant 76-year-old male patient with a known history of coronary artery disease congestive heart failure, T CVA/TIA, dementia, hypertension, hyperlipidemia, pulmonary embolism and maintained on Xarelto., He also has a history of chronic obstructive pulmonary disease with FEV1 value of 49% of pred icted. He had a previous heavy smoking tobacco history but quit back in 2016. He presented here to the emergency room yesterday with a three-day history of increasing shortness of breath. He was also found to be in a tachycardic. He received Lopressor in the emergency department. Chest x-ray revealed scattered airspace opacities within the left mid and lower lung hernandes. Background COPD changes. White count 18.6. Hemoglobin 13.4. Sodium 139. Potassium 4.7. BUN 22. Creatinine 1.27. Glucose 194. Lactic acid 3.0. Troponin negative times one. ProBNP 183. Coronavirus PCR not detected. Legioinella antigen negative. Blood cultures reveal no growth. He's been initiated on ceftriaxone and azithromycin along with bronchodilators and IV solu Medrol. Anticoagulated with Xarelto. On 11/26/2021 patient seen in follow-up on selective care unit, he states he is still coughing, feels congested, at times she is able to bring up some whitish colored sputum. Sputum specimen has been sent and results are pending, patient remains on Zosyn for antibiotic coverage, his been afebrile overnight, pro- calcitonin is significantly elevated at 18.4,multiple blood cultures were positive for strep pneumonia. Repeat blood culture has been ordered and pending at this time. Lung sounds reveal diffuse wheezes, rhonchi. Patient has an over [id number] smoking history, in remission for last 10 years, patient has advanced COPD he is only on home oxygen at 3-4 L and maintenance dose prednisone 10 mg daily. On IV Solu-Medrol 40 mg every 12 hours, DuoNeb 4 times a day. Currently amiodarone drip has been discontinued, patient is currently in sinus mechanism with a controlled rate. He is on Xarelto 2.5 mg BID. On 11/27/2021 patient seen in follow-up on selective care unit. Patient is quiet bronchospastic today, has a congested cough, at times he is able to bring up some whitish colored phlegm, he remains on Zosyn, sputum culture was sent, preliminary Gram stain shows few PMNs, many gram-positive cocci, few gram- positive bacilli. Follow-up blood culture from 11/26/2021 has shown no growth thus far. Afebrile. Vital signs have been stable, he remains on 3 L of oxygen pulse ox is 96%, yesterday we increased his IV steroids to 60 g every 6 hours, he is getting breathing treatments on an as-needed basis which we will switch to scheduled bases. On 11/28/2021 patient seen in follow-up on selective care unit. Patient is on 4 L of oxygen pulse ox is 92%, is hypertensive, he is a bit anxious at times, still has a congested cough, he is bringing up some yellowish colored phlegm, his been afebrile, he remains on antibiotics, steroids switched him to IV Rocephin 2 g every 24 hours, today we'll contact the IV steroids and will continue on breathing treatments. Patient's daughters at the bedside and she states patient has been having pain swelling and drainage out of a wound on his left elbow which had been there for the last 3 weeks, and had been treated with oral antibiotics and steroid injection at the PCPs office. The left elbow is wrapped, there is some serous drainage, after removing the wraps there is open ulcer, does not appear to be infected, but will be cultured nevertheless. Patient does have swelling surrounding the area and upper forearm and lower arm as well. On 12/01/2021 patient seen in follow-up on selective care unit, he is resting comfortably in bed, seems to be breathing easier. Doesn't appear to be in any acute distress. Patient currently remains on Rocephin 2 g every 24 hours, nebulized bronchodilators, his IV steroids have been transitioned to oral prednisone. He is less short of breath, left bronchospastic. On 3 L of oxygen pulse ox of 94%. His follow-up blood cultures from 11/26/2021 and 11/28/2021 have shown no growth thus far, wound culture from his left elbow had shown no growth, patient was evaluated by orthopedic surgery and the plan is for I&D procedure likely on 12/03/2021 pending clearance from cardiology and pulmonary Objective - Vital Signs Vital signs: Vital Signs Temp 97.7 F 12/01/21 09:00 Pulse 80 12/01/21 11:10 Resp 16 12/01/21 11:05 BP 186/86 12/01/21 11:05 Pulse Ox 97 12/01/21 11:05 Intake & Output 11/30/21 12/01/21 12/01/21 18:59 06:59 18:59 Intake Total 498 1080 240 Output Total 900 175 Balance 498 180 65 Weight 68.039 kg Intake: Oral 498 1080 240 Output: Urine 900 175 Other: Voiding Method Urinal Urinal # Voids 2 - Exam GENERAL EXAM: Alert, pleasant, 76-year-old white male, on 3 L of oxygen pulse ox is 92-96%, comfortable in no apparent distress. HEAD: Normocephalic/atraumatic. EYES: Normal reaction of pupils, equal size. Conjunctiva pink, sclera white. NOSE: Clear with pink turbinates. THROAT: No erythema or exudates. NECK: No masses, no JVD, no thyroid enlargement, no adenopathy. CHEST: No chest wall deformity. Symmetrical expansion. LUNGS: Equal air entry with diffuse wheezes and rhonchi CVS: Regular rate and rhythm, normal S1 and S2, no gallops, no murmurs, no rubs ABDOMEN: Soft, nontender. No hepatosplenomegaly, normal bowel sounds, no guarding or rigidity. EXTREMITIES: No clubbing, no edema, no cyanosis, 2+ pulses and upper and lower extremities. MUSCULOSKELETAL: Muscle strength and tone normal. Left elbow swelling and open ulcer on left elbow SPINE: No scoliosis or deformity SKIN: No rashes CENTRAL NERVOUS SYSTEM: Alert and oriented -3. No focal deficits, tone is normal in all 4 extremities. PSYCHIATRIC: Alert and oriented -3. Appropriate affect. Intact judgment and insight. - Labs CBC & Chem 7: 11/30/21 08:40 11/30/21 08:40 Labs: Microbiology - Last 24 Hours (Table) 11/28/21 11:15 Blood Culture - Preliminary Blood No Growth after 72 hours 11/28/21 11:25 Blood Culture - Preliminary Blood No Growth after 72 hours 11/26/21 07:46 Blood Culture - Preliminary Blood No Growth after 120 hours 11/28/21 10:36 Gram Stain - Final Elbow - Left Wound Culture - Final Assessment and Plan Plan: Assessment: Acute on chronic hypoxic respiratory failure secondary to an acute community- acquired pneumonia mainly in the left lung Strep pneumonia bacteremia likely related to pneumonia, community acquired Acute exacerbation of chronic obstructive pulmonary disease secondary to above. FEV1 value of 41% of predicted History of pulmonary embolism, anticoagulated with Xarelto Hypertension History of congestive heart failure, unspecified Chronic thoracic back pain Benign prosthetic hyperplasia Lumbar spondylosis with myelopathy [id number] smoking history, in remission for last 10 years Chronic hypoxic respiratory failure related to advanced COPD patient is normally on 3-4 L/m of home oxygen and maintenance dose prednisone of 10 mg Left elbow wound, with the possibility of osteomyelitis Plan: From pulmonary perspective patient's breathing is improving Continue oral prednisone, continue nebulized bronchodilators Continue IV antibiotics per ID service recommendations Patient is cleared for I&D procedure by orthopedic surgery for his left elbow from pulmonary perspective Continue to follow his clinical course I have personally seen and examined the patient, performed the documentation and the assessment and plan as written. Number of minutes spent on the visit: [10] Time with Patient: Less than 30
--- NOTE | 2021-12-01 15:27 | P.PN ---
Subjective Progress Note Date: 12/01/21 No significant events overnight. Patient is still complaining of shortness of breath at rest but is overall improving. His cough has become significantly more productive of thick yellow sputum for the last 24 hours. Initial blood cultures showed Streptococcus pneumonia bacteremia, repeat blood cultures have been negative so far. He is also being evaluated by orthopedic surgery for left elbow osteomyelitis, with plans for an I&D on Wednesday Objective - Vital Signs Vital signs: Vital Signs Temp 98 F 12/01/21 14:57 Pulse 80 12/01/21 15:09 Resp 18 12/01/21 14:57 BP 194/94 12/01/21 14:57 Pulse Ox 94 L 12/01/21 14:57 Intake & Output 11/30/21 12/01/21 12/01/21 18:59 06:59 18:59 Intake Total 498 1080 240 Output Total 900 675 Balance 498 180 -435 Weight 68.039 kg Intake: Oral 498 1080 240 Output: Urine 900 675 Other: Voiding Method Urinal Urinal # Voids 2 - Constitutional General appearance: Present: average body habitus, mild distress - EENT Eyes: Present: EOMI, PERRLA - Neck Neck: Present: normal ROM - Respiratory Respiratory: bilateral: rhonchi, wheezing, prolonged expiration - Cardiovascular Rhythm: regular Heart sounds: normal: S1, S2 Abnormal Heart Sounds: Absent: systolic murmur, diastolic murmur - Gastrointestinal General gastrointestinal: Present: normal bowel sounds. Absent: tenderness - Integumentary Integumentary: Present: ulcer - Neurologic Neurologic: Present: CNII-XII intact, focal deficits - Musculoskeletal Musculoskeletal Comment(s): Left elbow swelling and open ulcer on left elbow Musculoskeletal: Absent: generalized weakness - Psychiatric Psychiatric: Present: A&O x's 3, appropriate affect - Labs CBC & Chem 7: 11/30/21 08:40 11/30/21 08:40 Labs: Microbiology - Last 24 Hours (Table) 11/28/21 11:15 Blood Culture - Preliminary Blood No Growth after 72 hours 11/28/21 11:25 Blood Culture - Preliminary Blood No Growth after 72 hours 11/26/21 07:46 Blood Culture - Preliminary Blood No Growth after 120 hours 11/28/21 10:36 Gram Stain - Final Elbow - Left Wound Culture - Final Assessment and Plan Assessment: Acute on chronic hypoxic respiratory failure -Improving -secondary to an acute community-acquired pneumonia mainly in the left lung -Strep pneumonia bacteremia likely related to pneumonia, few blood cultures negative to date Acute exacerbation of chronic obstructive pulmonary disease secondary to above -Improving, continue bronchodilators, schedule, prednisone -Started on prednisone taper History of pulmonary embolism anticoagulated with Xarelto Last dose tonight, hold for at least 24 hours for possible I&D on Wednesday Left elbow wound, with the possibility of osteomyelitis -Orthopedic surgery planning for I&D on Wednesday -Patient is clinically improving, at acceptable cardiovascular risk for surgery -Hold Xarelto for 24 hours per surgery Hypertension Chronic thoracic back pain Benign prosthetic hyperplasia Lumbar spondylosis with myelopathy [id number] smoking history, in remission for last 10 years Time with Patient: Less than 30
--- NOTE | 2021-12-01 20:47 | P.PN ---
Subjective Progress Note Date: 12/01/21 Principal diagnosis: Strep pneumo bacteremia pneumonia and a question of left elbow bursitis Patient is a 76-year-old male presented to the hospital with shortness of breath and cough with evidence of pneumonia and did have evidence of strep pneumo bacteremia, sputum has been cannula and the blood culture has been negative patient also having a problem with the left elbow which seemed to have been treated in the outpatient setting and culture were done to which I do not have any excess at this point , x-rays of the elbow did not show any bony changes. On today's evaluation that is 12/01/2021, the patient is afebrile, the patient is breathing comfortably on nasal cannula oxygen, the patient did have part not wake up any sputum denies abdominal pain and no worsening pain to the left elbow area Objective - Vital Signs Vital signs: Vital Signs Temp 97.7 F 12/01/21 09:00 Pulse 80 12/01/21 11:10 Resp 16 12/01/21 11:05 BP 186/86 12/01/21 11:05 Pulse Ox 97 12/01/21 11:05 Intake & Output 11/30/21 12/01/21 12/01/21 18:59 06:59 18:59 Intake Total 498 1080 240 Output Total 900 175 Balance 498 180 65 Weight 68.039 kg Intake: Oral 498 1080 240 Output: Urine 900 175 Other: Voiding Method Urinal Urinal # Voids 2 - Exam GENERAL DESCRIPTION: An elderly male lying in bed in no distress RESPIRATORY SYSTEM: Unlabored breathing , decreased breath sounds at bases HEART: S1 S2 regular rate and rhythm , ABDOMEN: Soft , no tenderness EXTREMITIES: Left elbow is currently dressed no drainage on the dressing - Labs CBC & Chem 7: 11/30/21 08:40 11/30/21 08:40 Labs: Microbiology - Last 24 Hours (Table) 11/28/21 11:25 Blood Culture - Preliminary Blood No Growth after 72 hours 11/26/21 07:46 Blood Culture - Preliminary Blood No Growth after 120 hours 11/28/21 11:15 Blood Culture - Preliminary Blood No Growth after 48 hours 11/28/21 10:36 Gram Stain - Final Elbow - Left Wound Culture - Final Assessment and Plan (1) Pneumonia Current Visit: Yes Status: Acute Code(s): J18.9 - PNEUMONIA, UNSPECIFIED ORGANISM SNOMED Code(s): 790518152 Plan: 1patient with a strep pneumo bacteremia source likely pneumonia in this patient presented to hospital with increasing shortness of breath and cough and evidence of pulmonary infiltrate and elevated procalcitonin. 2patient with a left elbow wound and apparently the patient did have a I&D done in the outpatient setting seems like a BURSITIS and did have outpatient cultures which we are not able to obtain, x-rays were negative for any bony changes , culture done this admission has been negative so far 3patient is currently being treated with Rocephin 2 g daily , hopefully fi nishing therapy with oral antibiotics, white count is trending down Time with Patient: Less than 30
[2021-12-02] MEDS: IPRATROPIUM-ALBUTEROL 3 ML NEB INHALATION SCH ×6 (03:47→23:26)
[2021-12-02] MEDS: SODIUM CHLORIDE 0.9% 1,000 ML IV SCH ×2 (03:55→09:24)
[2021-12-02] MEDS: guaiFENesin SYRUP 100MG/5ML 200 MG/10 ML CUP PO SCH ×4 (03:55→18:01)
[2021-12-02] MEDS: oxyCODONE-APAP 10-325MG 1 EACH TAB PO SCH ×3 (04:53→18:01)
[2021-12-02] MEDS: cloNIDine HCL 0.2 MG TAB PO PRN (07:26)
--- NOTE | 2021-12-02 08:43 | P.PN ---
Subjective Progress Note Date: 12/02/21 This a pleasant 76-year-old male patient with a known history of coronary artery disease congestive heart failure, T CVA/TIA, dementia, hypertension, hyperlipidemia, pulmonary embolism and maintained on Xarelto., He also has a history of chronic obstructive pulmonary disease with FEV1 value of 49% of pred icted. He had a previous heavy smoking tobacco history but quit back in 2016. He presented here to the emergency room yesterday with a three-day history of increasing shortness of breath. He was also found to be in a tachycardic. He received Lopressor in the emergency department. Chest x-ray revealed scattered airspace opacities within the left mid and lower lung hernandes. Background COPD changes. White count 18.6. Hemoglobin 13.4. Sodium 139. Potassium 4.7. BUN 22. Creatinine 1.27. Glucose 194. Lactic acid 3.0. Troponin negative times one. ProBNP 183. Coronavirus PCR not detected. Legioinella antigen negative. Blood cultures reveal no growth. He's been initiated on ceftriaxone and azithromycin along with bronchodilators and IV solu Medrol. Anticoagulated with Xarelto. On 11/26/2021 patient seen in follow-up on selective care unit, he states he is still coughing, feels congested, at times she is able to bring up some whitish colored sputum. Sputum specimen has been sent and results are pending, patient remains on Zosyn for antibiotic coverage, his been afebrile overnight, pro- calcitonin is significantly elevated at 18.4,multiple blood cultures were positive for strep pneumonia. Repeat blood culture has been ordered and pending at this time. Lung sounds reveal diffuse wheezes, rhonchi. Patient has an over [id number] smoking history, in remission for last 10 years, patient has advanced COPD he is only on home oxygen at 3-4 L and maintenance dose prednisone 10 mg daily. On IV Solu-Medrol 40 mg every 12 hours, DuoNeb 4 times a day. Currently amiodarone drip has been discontinued, patient is currently in sinus mechanism with a controlled rate. He is on Xarelto 2.5 mg BID. On 11/27/2021 patient seen in follow-up on selective care unit. Patient is quiet bronchospastic today, has a congested cough, at times he is able to bring up some whitish colored phlegm, he remains on Zosyn, sputum culture was sent, preliminary Gram stain shows few PMNs, many gram-positive cocci, few gram- positive bacilli. Follow-up blood culture from 11/26/2021 has shown no growth thus far. Afebrile. Vital signs have been stable, he remains on 3 L of oxygen pulse ox is 96%, yesterday we increased his IV steroids to 60 g every 6 hours, he is getting breathing treatments on an as-needed basis which we will switch to scheduled bases. On 11/28/2021 patient seen in follow-up on selective care unit. Patient is on 4 L of oxygen pulse ox is 92%, is hypertensive, he is a bit anxious at times, still has a congested cough, he is bringing up some yellowish colored phlegm, his been afebrile, he remains on antibiotics, steroids switched him to IV Rocephin 2 g every 24 hours, today we'll contact the IV steroids and will continue on breathing treatments. Patient's daughters at the bedside and she states patient has been having pain swelling and drainage out of a wound on his left elbow which had been there for the last 3 weeks, and had been treated with oral antibiotics and steroid injection at the PCPs office. The left elbow is wrapped, there is some serous drainage, after removing the wraps there is open ulcer, does not appear to be infected, but will be cultured nevertheless. Patient does have swelling surrounding the area and upper forearm and lower arm as well. On 12/01/2021 patient seen in follow-up on selective care unit, he is resting comfortably in bed, seems to be breathing easier. Doesn't appear to be in any acute distress. Patient currently remains on Rocephin 2 g every 24 hours, nebulized bronchodilators, his IV steroids have been transitioned to oral prednisone. He is less short of breath, left bronchospastic. On 3 L of oxygen pulse ox of 94%. His follow-up blood cultures from 11/26/2021 and 11/28/2021 have shown no growth thus far, wound culture from his left elbow had shown no growth, patient was evaluated by orthopedic surgery and the plan is for I&D procedure likely on 12/03/2021 pending clearance from cardiology and pulmonary. On 12/02/2021 patient seen in follow-up on selective care unit, he is breathing comfortably, he is currently on 3 L of oxygen pulse ox is 94%, still has a congested cough, at times he is told to bring up some creamy colored sputum, and he states he did see some red in it but a small amount. He continues on IV Rocephin 2 g every 24 hours, his vital signs have been stable. Lung sounds are diminished, no wheezing or rhonchi noted on today's exam, continues on nebulized bronchodilators. Hemodynamically she is stable. he is in sinus mechanism. No new labs today. IV fluids of 0.9 normal saline at a rate of 20 ML per hour His blood cultures from 11/26/2021 and 11/28/2021 have shown no growth, left elbow wound culture was negative. Patient is getting local wound treatments. Orthopedic surgery is following and incision and drainage of the left elbow wound was recommended. From pulmonary perspective patient is stable for I&D of the left elbow tomorrow on 12/03/2021. Objective - Vital Signs Vital signs: Vital Signs Temp 97.9 F 12/02/21 07:50 Pulse 81 12/02/21 07:50 Resp 18 12/02/21 07:50 BP 195/83 12/02/21 07:50 Pulse Ox 94 L 12/02/21 07:50 Intake & Output 12/01/21 12/02/21 12/02/21 18:59 06:59 18:59 Intake Total 240 340 118 Output Total 675 350 Balance -435 -10 118 Weight 68.039 kg Intake: Intake, IV Titration 100 Amount Sodium Chloride 0.9% 1, 100 000 ml @ 10 mls/hr IV . Q24H [facility] Rx#:[id number] Oral 240 240 118 Output: Urine 675 350 Other: Voiding Method Urinal Urinal - Exam GENERAL EXAM: Alert, pleasant, 76-year-old white male, on 3 L of oxygen pulse ox is 94%, comfortable in no apparent distress. HEAD: Normocephalic/atraumatic. EYES: Normal reaction of pupils, equal size. Conjunctiva pink, sclera white. NOSE: Clear with pink turbinates. THROAT: No erythema or exudates. NECK: No masses, no JVD, no thyroid enlargement, no adenopathy. CHEST: No chest wall deformity. Symmetrical expansion. LUNGS: Equal air entry with diminished breath sounds. CVS: Regular rate and rhythm, normal S1 and S2, no gallops, no murmurs, no rubs ABDOMEN: Soft, nontender. No hepatosplenomegaly, normal bowel sounds, no guarding or rigidity. EXTREMITIES: No clubbing, mild lower extremity and pedal edema, no cyanosis, 2+ pulses and upper and lower extremities. MUSCULOSKELETAL: Muscle strength and tone normal. Left elbow swelling and open ulcer on left elbow SPINE: No scoliosis or deformity SKIN: No rashes CENTRAL NERVOUS SYSTEM: Alert and oriented -3. No focal deficits, tone is normal in all 4 extremities. PSYCHIATRIC: Alert and oriented -3. Appropriate affect. Intact judgment and insight. - Labs CBC & Chem 7: 11/30/21 08:40 11/30/21 08:40 Labs: Microbiology - Last 24 Hours (Table) 11/28/21 11:15 Blood Culture - Preliminary Blood No Growth after 72 hours 11/28/21 11:25 Blood Culture - Preliminary Blood No Growth after 72 hours 11/26/21 07:46 Blood Culture - Preliminary Blood No Growth after 120 hours Assessment and Plan Plan: Assessment: Acute on chronic hypoxic respiratory failure secondary to an acute community- acquired pneumonia mainly in the left lung Strep pneumonia bacteremia likely related to pneumonia, community acquired Acute exacerbation of chronic obstructive pulmonary disease secondary to above. FEV1 value of 41% of predicted History of pulmonary embolism, anticoagulated with Xarelto Hypertension History of congestive heart failure, unspecified Chronic thoracic back pain Benign prosthetic hyperplasia Lumbar spondylosis with myelopathy [id number] smoking history, in remission for last 10 years Chronic hypoxic respiratory failure related to advanced COPD patient is normally on 3-4 L/m of home oxygen and maintenance dose prednisone of 10 mg Left elbow wound, with the possibility of osteomyelitis Plan: Continue current medical treatment Continue antibiotics, breathing treatments and steroids Breathing continues to improve Stable for I&D of the left elbow wound by orthopedic surgery tomorrow on 12/03/2021 from pulmonary perspective I have personally seen and examined the patient, performed the documentation and the assessment and plan as written. Number of minutes spent on the visit: [10] Time with Patient: Less than 30
[2021-12-02 08:56] LABS: ALT 38 U/L (4-49); AST 27 U/L (17-59); African American GFR (CKD) >90 (>60 ml/min/1.73 sqM); Alkaline Phosphatase 76 U/L (38-126); Anion Gap 4 mmol/L; Blood Urea Nitrogen 19 mg/dL (9-20); Calcium 8.5 mg/dL (8.4-10.2); Carbon Dioxide 31 mmol/L (22-30); Chloride 101 mmol/L (98-107); Glucose 100 mg/dL (74-99); Non-African American GFR(CKD) 85 (>60 ml/min/1.73 sqM); Potassium 4.4 mmol/L (3.5-5.1); Sodium 136 mmol/L (137-145); Total Bilirubin 0.5 mg/dL (0.2-1.3); Total Protein 5.6 g/dL (6.3-8.2)
[2021-12-02] MEDS: CHOLECALCIFEROL 125 MCG (5000 IU) TABLET PO SCH (09:20)
[2021-12-02 09:21] LABS: HCT 41.9 % (39.0-53.0); HGB 13.1 gm/dL (13.0-17.5); Hypochromasia Slight; MCH 32.2 pg (25.0-35.0); MCHC 31.2 g/dL (31.0-37.0); MCV 103.3 fL (80.0-100.0); Macrocytosis Slight; Mean Platelet Volume 7.4; Platelet Count 398 k/uL (150-450); RBC 4.06 m/uL (4.30-5.90); RDW 13.7 % (11.5-15.5); WBC 16.6 k/uL (3.8-10.6)
[2021-12-02] MEDS: GABAPENTIN 300 MG CAP PO SCH ×3 (09:21→19:52)
[2021-12-02] MEDS: predniSONE 20 MG TAB PO SCH (09:21)
[2021-12-02] MEDS: THIAMINE 100 MG TAB PO SCH (09:22)
[2021-12-02] MEDS: SYMBICORT 160-4.5 MCG INHALER INHALATION SCH ×2 (09:36→19:11)
[2021-12-02 09:40] LABS: Band Neutrophils % 1 %; Eosinophils # (M) 0.17 k/uL (0-0.7); Lymphocytes # (M) 2.99 k/uL (1.0-4.8); Metamyelocytes % 3 %; Monocytes # (M) 0.66 k/uL (0-1.0); Neutrophils % (M) 73 %; Nucleated Red Blood Cells 0 /100 WBC (0-0); Polychromasia Present; Total Cells Counted 100
--- NOTE | 2021-12-02 09:52 | CDI ---
Documentation Clarification Form Date: 12/02/2021 09:43:00 AM From: Anika CentenoBrionesHEATHER sutton, CCDS Admit Date: 11/24/2021 08:15:00 PM Patient Name: Ricki Hess Visit Number: [id number] Discharge Date: ATTENTION: The Clinical Documentation Specialists (CDI) and [facility] Coding Staff appreciate your assistance in clarifying documentation. Please respond to the clarification below the line at the bottom and electronically sign. The CDI & [facility] Coding staff will review the response and follow-up if needed. Please note: Queries are made part of the Legal Health Record. If you have any questions, please contact the author of this message via ITS. Dr. Dima Elizondo or Dr. Suzie Wen: Sepsis secondary to community acquired pneumonia and Lactic Acidosis secondary to Sepsis is documented by the Attending Physician beginning in the 11/25 Attending Physician Progress Notes through 11/30. Sepsis is not documented in subsequent documentation beginning on 12/01. Clarification is requested. History/Risk Factors per the 11/24 H/P: CAD, Heart Failure, COPD on Home O2 3Lnc atc, TIA, Dementia, GERD, Hyperlipidemia, Hypertension, Memory Impairment, MO, Osteoarthritis, Pneumonia, PE, Recovering Alcoholic. Clinical Indicators: Presented to the ED on 11/24 via EMS with SOB, Difficulty Breathing & Hypertension. Admit with Pneumonia, COPD with Exacerbation, Hypotensive Episode, Tachycardia, Dehydration, Lactic Acidosis. 11/24 VS: T 98.7, P 158, R 25, 26 (sob, labored, cough, Persistent, talks in phrases); BP 105/52, 87/52; PO 96 8L ventimask 11/25 VS: T 95.7, P 127, R 20 (sob, labored, cough, talks in phrases, shallow, tachypnea), BP 148/80, 112/56, PO 98 5Lnc, 94 5Lnc. 11/24 LAB: WBC 14.2, Neutrophils 11.9; D Dimer 0.80; Glucose 126, Lactic Acid 2.2, 4.3, 2.7; COVID negative (11/25) 11/25 LAB: WBC 18.6, Neutrophils 15.80, Lymph 0.56, Lactic Acid 3.0, 3.6, 4.8; Procalcitonin 18.40 11/24 Blood Culture (final): Streptococcus pneumoniae x4 11/26 Sputum Culture (final): Alexandra albicans 11/24 CXR: Left mid & lower lung scattered airspace opacities, correlate for pneumonia. COPD changes. 11/25 CXR: Improving left lung infiltrates. Treatment 11/24: EKG, O2: 8: ventimask, IV Lasix 40 mg x1, Nitropaste x1, IV Lopressor 5 mg x1, IV Na Cl 1,000 mls @ 999 mls/hr q1H, IV Na Cl 1,000 mls @ 130 mls/hr q7H, INH Duoneb 3ml x1, IV Rocephin 2,000 mg x1, IV Solumedrol 125 mg x1, IV Azithromycin 250 mls @ 250 mls/hr x1, IV Na Cl 1,000 mls @ 999 mls/hr q1H Please clarify if Sepsis is: [ ] Sepsis confirmed, remains under treatment, please specify cause if known. [ x ] Sepsis confirmed, resolved, please specify cause if known. --- Bacteremia and CAP [ ] Sepsis is ruled out [ ] Other condition, please specify [ ] Unable to determine (Template Last Revised: October 2020) MTDD
--- NOTE | 2021-12-02 10:25 | P.PN ---
Subjective Principal diagnosis: Ulcer, left elbow Patient was seen at bedside this morning lying in semirecumbent position. Patient still has Kerlix bandage present over the left elbow. Patient still says he is having some pain in the left elbow. Patient denies increasing chest pain, nausea, vomiting, change in vision, loss of bowel/bladder control. Objective - Vital Signs Vital signs: Vital Signs Temp 97.9 F 12/02/21 07:50 Pulse 81 12/02/21 08:00 Resp 18 12/02/21 08:00 BP 195/83 12/02/21 07:50 Pulse Ox 94 L 12/02/21 07:50 Intake & Output 12/01/21 12/02/21 12/02/21 18:59 06:59 18:59 Intake Total 240 340 418 Output Total 675 350 100 Balance -435 -10 318 Weight 68.039 kg Intake: Intake, IV Titration 100 Amount Sodium Chloride 0.9% 1, 100 000 ml @ 10 mls/hr IV . Q24H [facility] Rx#:[id number] Oral 240 240 418 Output: Urine 675 350 100 Other: Voiding Method Urinal Urinal Urinal - Exam Left upper extremity: Inspection: Kerlix bandage present over the left elbow. Open wound present over left elbow approximately 2 cm in diameter rounded shape. Negative for any drainage from the wound. The wound was inspected and the proximal portion the ulna can be visualized. Negative for any fluctuance/purulence. Left forearm there is mild to moderate edema. Sensation: Sensation is equal, symmetric, bilaterally intact throughout the upper extremities. Palpation: Moderate tenderness to palpation near the open wound on the left elbow. Nontender to palpation throughout the rest of exam Range of motion: Patient is able to fully extend and flex left elbow with known to very minimal pain in the left elbow. Patient is also able pronate and supinate left arm without pain. Patient has full flexion-extension left wrist. Crumb Packer strength is 4+/5 bilaterally. Patient has full range of motion in left shoulder abduction and forward elevation. Motor: 4/5 resisted left elbow flexion/extension, left wrist flexion/extension in left shoulder resisted abduction and flexion. Neurovascular status: Refill under 3 seconds in digits of upper extremities. Radial pulses intact, 2+ bilaterally. Special tests: Negative Homans bilaterally - Labs CBC & Chem 7: 12/02/21 07:45 12/02/21 07:45 Labs: Abnormal Lab Results - Last 24 Hours (Table) 12/02/21 12/02/21 Range/Units 07:45 07:45 WBC 16.6 H (3.8-10.6) k/uL RBC 4.06 L (4.30-5.90) m/uL MCV 103.3 H (80.0-100.0) fL Neutrophils # (Manual) 12.20 H (1.3-7.7) k/uL Metamyelocytes # (Man) 0.50 H (0) k/uL Sodium 136 L (137-145) mmol/L Carbon Dioxide 31 H (22-30) mmol/L Glucose 100 H (74-99) mg/dL Total Protein 5.6 L (6.3-8.2) g/dL Albumin 3.0 L (3.5-5.0) g/dL Microbiology - Last 24 Hours (Table) 11/26/21 07:46 Blood Culture - Final Blood No Growth after 144 hours 11/28/21 11:15 Blood Culture - Preliminary Blood No Growth after 72 hours 11/28/21 11:25 Blood Culture - Preliminary Blood No Growth after 72 hours Assessment and Plan Assessment: 1. 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 Plan: 1. 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 We are planning for surgery , 12/03/2021 if patient can be cleared by cardio. If patient cannot be cleared for surgery during his inpatient stay, surgery can be perfromed within the next few weeks. Due to chronicity of open wound with exposed bone after septic olecranon bursitis I&D 2 months prior the wound is unlikely to close by secondary intention. We'll continue to keep the left elbow wrapped with Kerlix bandage at this time. We'll continue follow patient while in hospital. 2. Multiple medical comorbidities 3. Appreciate medical management; appreciate pulmonary management - patient does need cardiac clearance 4. Pain management - gabapentin; oxycodone 5. DVT prophylaxis - Withhold thinners at this time. 6. PT/OT - WBAT Time with Patient: Less than 30
[2021-12-02] MEDS: amLODIPine 5 MG TAB PO SCH ×2 (11:01→19:52)
[2021-12-02] MEDS: METOPROLOL TARTRATE 12.5 MG TAB PO SCH ×2 (11:01→19:52)
[2021-12-02 11:54] LABS: Glucose,Whole Blood 97 mg/dL (75-99)
--- NOTE | 2021-12-02 13:00 | ECHOF ---
Referral Reason:LV function, pre-surgical clearance MEASUREMENTS -------- HEIGHT: 165.1 cm WEIGHT: 68.0 kg BP: 195/83 RVIDd: 3.5 cm (< 3.3) IVSd: 1.3 cm (0.6 - 1.1) LVIDd: 3.5 cm (3.9 - 5.3) LVPWd: 1.3 cm (0.6 - 1.1) IVSs: 1.9 cm LVIDs: 2.1 cm LVPWs: 1.5 cm LA Diam: 3.4 cm (2.7 - 3.8) Ao Diam: 3.7 cm (2.0 - 3.7) AV Cusp: 1.8 cm (1.5 - 2.6) MV EXCURSION: 18.807 mm (> 18.000) MV EF SLOPE: 12 mm/s (70 - 150) EPSS: 0.6 cm MV E Robin: 0.48 m/s MV DecT: 271 ms MV A Robin: 0.61 m/s MV E/A Ratio: 0.79 AR PHT: 2436 ms RAP: 5.00 mmHg RVSP: 43.73 mmHg FINDINGS -------- Sinus rhythm. This was a technically difficult study with suboptimal views. The left ventricular size is normal. There is mild concentric left ventricular hypertrophy. Overa ll left ventricular systolic function is normal with, an EF between 60 - 65 %. The right ventricle is mildly enlarged. The left atrium is normal in size. The right atrium is normal in size. Interatrial and interventricular septum intact. There is mild aortic valve sclerosis. There is mild aortic regurgitation. Mild mitral annular calcification present. Mild tricuspid regurgitation present. There is mild pulmonary hypertension. The right ventricular systolic pressure, as measured by Doppler, is 43.73mmHg. The pulmonic valve was not well visualized. The aortic root size is normal. Normal inferior vena cava with normal inspiratory collapse consistent with estimated right atrial pre ssure of 5 mmHg. There is no pericardial effusion. CONCLUSIONS -------- 1. The left ventricular size is normal. 2. There is mild concentric left ventricular hypertrophy. 3. Overall left ventricular systolic function is normal with, an EF between 60 - 65 %. 4. The right ventricle is mildly enlarged. 5. There is mild aortic valve sclerosis. 6. There is mild aortic regurgitation. 7. Mild mitral annular calcification present. 8. Mild tricuspid regurgitation present. 9. There is mild pulmonary hypertension. 10. The right ventricular systolic pressure, as measured by Doppler, is 43.73mmHg. 11. There is no pericardial effusion. STICK PULLER: Uma Barrios RDCS
--- NOTE | 2021-12-02 14:20 | P.CRDCN ---
History of Present Illness History of present illness: HISTORY OF PRESENTING ILLNESS This is a pleasant 76-year-old male past medical history significant for COPD, chronic diastolic heart failure, dementia, COPD, hypertension, dyslipidemia, prior CVA, pulmonary embolism on Xarelto., Pulmonary hypertension, chronic nicotine dependence, carotid stenosis. He used to follow in the office with Dr. Ashford last seen in 2019. We have been asked to see in consultation for cardiac clearance. Patient presents emergency department on 11/24/2021 with complaints of shortness of breath, nonproductive cough, congestion. Chest is a left mid and lower lung opacities concerning for pneumonia. Patient is also being treated with COPD exacerbation. Patient also had left elbow and forearm swelling and wound noted. Orthopedics was consulted concerning for osteomyelitis of the left elbow. Orthopedics is recommending incision and debridement with closure of the open wound of left elbow on 12/03/2021. Patient seen and examined at bedside, no acute distress. Continue to require 3L oxygen. Continues to have productive cough with creamy colored sputum. Vital signs are stable. No chest pain. DIAGNOSTICS EKG on admission revealed sinus tachycardia, heart rate 127, no acute ST S2 abnormality suggests ischemia. Echocardiogram revealed an EF of 6065 percent, no significant wall motion abnormalities. Most recent chest x-ray on 11/28 revealed persistence of the COPD and pulmonary primary changes. Laboratory reviewed, WBC 16, hemoglobin 13, platelets 398, sodium 136, potassium 4.4, BUN 19, serum creatinine 0.8 Current home medications: Prednisone, Xarelto 2.5 mg twice a day, gabapentin, Percocet, Vitamin D REVIEW OF SYSTEMS At the time of my exam: CONSTITUTIONAL: Denies fever or chills. CARDIOVASCULAR: Denies chest pain, +shortness of breath,Denies orthopnea, PND or palpitations. RESPIRATORY: Denies cough. GASTROINTESTINAL: Denies abdominal pain, diarrhea, constipation, nausea or vomiting. MUSCULOSKELETAL: Denies myalgias. NEUROLOGIC: Denies numbness, tingling, headacbe or weakness. ENDOCRINE: Denies fatigue, weight change, polydipsia or polyurina. GENITOURINARY: Denies burning, hematuria or urgency with micturation. HEMATOLOGIC: Denies history of anemia or bleeding. PHYSICAL EXAMINATION Blood pressure 135/61, heart rate 73, afebrile, saturations 92% on 3 L nasal cannula CONSTITUTIONAL: No apparent distress. HEENT: Head is normocephalic. Pupils are equal, round. Sclerae anicteric. Mucous membranes of the mouth are moist. No JVD. No carotid bruit. CHEST EXAMINATION: Lungs are diminished with rhonchi bilaterally to auscultati on. No chest wall tenderness is noted on palpation or with deep breathing. HEART EXAMINATION: Regular rate and rhythm. S1, S2 heard. No murmurs, gallops or rub. ABDOMEN: Soft, nontender. Positive bowel sounds. EXTREMITIES: 2+ peripheral pulses, no lower extremity edema and no calf tenderness. NEUROLOGIC EXAMINATION: Patient is awake, alert and oriented x3. ASSESSMENT Pneumonia Bacteremia, Strep pneumonia Acute COPD exacerbation History of pulmonary embolism Left elbow wound and swelling, possible osteomyelitis History of dementia History of hypertension Dyslipidemia PLAN The patient has the following risk factors history of congestive heart failure, history of CVA, acute COPD exacerbation and admitted with sepsis. Patient is not able to perform >4 METs levels of activity, but does have any acute cardiac conditions. There are no absolute contraindications to undergo debridement of left elbow at this time. Patient is hemodynamically stable. Recommend cautious fluid administration and optimal BP control. Nurse practitioner note has been reviewed by physician. Signing provider agrees with the documented findings, assessment, and plan of care. 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 Last Myocardial Infarction Date:: unknown History of Any Multi-Drug Resistant Organisms: None Reported Past Surgical History: Appendectomy, Back Surgery Additional Past Surgical History / Comment(s): EGD with bx/colonoscopy with bx, bronchoscopy, low back surgery, PICC-since removed. Past Anesthesia/Blood Transfusion Reactions: No Reported Reaction Additional Past Anesthesia/Blood Transfusion Reaction / Comment(s): Pt has never received blood. Smoking Status: Former smoker - Past Family History Father Family Medical History: Cancer Additional Family Medical History / Comment(s): Father had throat cancer. Mother Family Medical History: Cancer Additional Family Medical History / Comment(s): Mother had breast cancer. Medications and Allergies Home Medications Medication Instructions Recorded Confirmed Type Cholecalciferol [Vitamin D3 (125 125 mcg PO DAILY 11/24/21 11/24/21 History Mcg = 5000 Iu)] Gabapentin [Neurontin] 600 mg PO TID 11/24/21 11/24/21 History Rivaroxaban [Xarelto] 2.5 mg PO BID 11/24/21 11/24/21 History oxyCODONE-APAP 10-325MG [Percocet 1 tab PO TID-W/MEALS 11/24/21 11/24/21 History 10-325 mg] predniSONE 10 mg PO DAILY 11/24/21 11/24/21 History Allergies Allergy/AdvReac Type Severity Reaction Status Date / Time caffeine AdvReac Diarrhea Verified 11/24/21 18:34 Physical Exam Vitals: Vital Signs Temp Pulse Pulse Pulse Pulse Resp BP 12/02/21 11:48 84 12/02/21 11:39 82 12/02/21 11:29 98.0 F 73 18 135/64 12/02/21 08:00 66 70 81 18 12/02/21 07:50 97.9 F 81 18 195/83 12/02/21 03:56 98 F 82 70 18 151/86 12/02/21 03:47 81 12/02/21 01:45 66 70 18 12/02/21 00:00 98.1 F 66 18 146/80 12/01/21 23:40 86 12/01/21 23:30 85 12/01/21 20:10 83 12/01/21 20:00 98.4 F 74 70 18 153/76 12/01/21 18:04 172/73 12/01/21 16:00 18 12/01/21 15:19 82 12/01/21 15:09 80 12/01/21 14:57 98 F 88 18 194/94 Pulse Ox 12/02/21 11:48 12/02/21 11:39 12/02/21 11:29 92 L 12/02/21 08:00 12/02/21 07:50 94 L 12/02/21 03:56 94 L 12/02/21 03:47 12/02/21 01:45 12/02/21 00:00 95 12/01/21 23:40 12/01/21 23:30 12/01/21 20:10 12/01/21 20:00 96 12/01/21 18:04 12/01/21 16:00 12/01/21 15:19 12/01/21 15:09 12/01/21 14:57 94 L Intake and Output 12/01/21 12/02/21 12/02/21 22:59 06:59 14:59 Intake Total 340 418 Output Total 250 100 890 Balance 90 -100 -472 Intake: Intake, IV Titration 100 Amount Sodium Chloride 0.9% 1, 100 000 ml @ 10 mls/hr IV . Q24H [facility] Rx#:[id number] Oral 240 418 Output: Urine 250 100 890 Other: Voiding Method Urinal Urinal Urinal Results 12/02/21 07:45 12/02/21 07:45 Cardiac Enzymes 12/02/21 Range/Units 07:45 AST 27 (17-59) U/L CBC 12/02/21 Range/Units 07:45 WBC 16.6 H (3.8-10.6) k/uL RBC 4.06 L (4.30-5.90) m/uL Hgb 13.1 (13.0-17.5) gm/dL Hct 41.9 (39.0-53.0) % Plt Count 398 (150-450) k/uL Comprehensive Metabolic Panel 12/02/21 Range/Units 07:45 Sodium 136 L (137-145) mmol/L Potassium 4.4 (3.5-5.1) mmol/L Chloride 101 (98-107) mmol/L Carbon Dioxide 31 H (22-30) mmol/L BUN 19 (9-20) mg/dL Creatinine 0.82 (0.66-1.25) mg/dL Glucose 100 H (74-99) mg/dL Calcium 8.5 (8.4-10.2) mg/dL AST 27 (17-59) U/L ALT 38 (4-49) U/L Alkaline Phosphatase 76 (38-126) U/L Total Protein 5.6 L (6.3-8.2) g/dL Albumin 3.0 L (3.5-5.0) g/dL Current Medications Generic Name Dose Route Start Last Admin Trade Name Freq PRN Reason Stop Dose Admin Albuterol/Ipratropium 3 ml 11/27/21 02:24 11/27/21 03:05 Ipratropium-Albuterol 3 Ml Neb INHALATION 3 ml RT-Q2H PRN Administration Shortness Of Breath Or Wheezing Albuterol/Ipratropium 3 ml 11/27/21 12:00 12/02/21 11:39 Ipratropium-Albuterol 3 Ml Neb INHALATION 3 ml RT-Q4H ABDOULAYE Administration Alprazolam 0.25 mg 11/27/21 23:41 11/30/21 17:22 Alprazolam 0.25 Mg Tab PO 0.25 mg TID PRN Administration Anxiety Amlodipine Besylate 5 mg 12/02/21 10:30 12/02/21 11:01 Amlodipine 5 Mg Tab PO 5 mg BID ABDOULAYE Administration Budesonide/Formoterol Fumarate 2 puff 11/26/21 20:00 12/02/21 09:36 Symbicort 160-4.5 Mcg Inhaler INHALATION Not Given RT-BID ABDOULAYE Cholecalciferol 125 mcg 11/25/21 09:00 12/02/21 09:20 Cholecalciferol 125 Mcg (5000 Iu) Tablet PO 125 mcg DAILY ABDOULAYE Administration Clonidine 0.2 mg 11/27/21 23:32 12/02/21 07:26 Clonidine Hcl 0.2 Mg Tab PO 0.2 mg QID PRN Administration Blood Pressure - High Gabapentin 600 mg 11/24/21 22:00 12/02/21 09:21 Gabapentin 300 Mg Cap PO 600 mg TID ABDOULAYE Administration Guaifenesin 200 mg 11/30/21 18:00 12/02/21 12:06 Guaifenesin Syrup 100mg/5ml 200 Mg/10 Ml Cup PO 200 mg Q6HR ABDOULAYE Administration Sodium Chloride 1,000 mls @ 10 mls/hr 11/25/21 07:45 12/02/21 09:24 Saline 0.9% IV 10 mls/hr .Q24H ABDOULAYE Administration Protocol Ceftriaxone Sodium 2 gm/ 50 mls @ 100 mls/hr 11/27/21 11:00 12/02/21 09:20 Sodium Chloride IVPB 100 mls/hr Q24HR ABDOULAYE Administration Protocol Metoprolol Tartrate 12.5 mg 12/02/21 10:30 12/02/21 11:01 Metoprolol Tartrate 12.5 Mg Tab PO 12.5 mg BID ABDOULAYE Administration Miscellaneous Information 1 each 11/24/21 20:15 Pneumonia Protocol Utilized 1 Each Misc PO ONCE PRN Per Protocol Oxycodone/Acetaminophen 1 each 11/25/21 07:30 12/02/21 12:06 Oxycodone-Apap 10-325mg 1 Each Tab PO 1 each TID-W/MEALS ABDOULAYE Administration Oxycodone/Acetaminophen 1 each 11/26/21 07:23 11/27/21 23:48 Oxycodone-Apap 10-325mg 1 Each Tab PO 1 each Q6HR PRN Administration Pain Prednisone 40 mg 11/30/21 09:45 12/02/21 09:21 Prednisone 20 Mg Tab PO 40 mg DAILY ABDOULAYE Administration Thiamine HCl 100 mg 11/26/21 09:00 12/02/21 09:22 Thiamine 100 Mg Tab PO 100 mg DAILY ABDOULAYE Administration Intake and Output 12/01/21 12/02/21 12/02/21 22:59 06:59 14:59 Intake Total 340 418 Output Total 250 100 890 Balance 90 100 -472 Intake: Intake, IV Titration 100 Amount Sodium Chloride 0.9% 1, 100 000 ml @ 10 mls/hr IV . Q24H ABDOULAYE Rx#:[id number] Oral 240 418 Output: Urine 250 100 890 Other: Voiding Method Urinal Urinal Urinal 12/02/21 07:45 12/02/21 07:45
[2021-12-02] MEDS ORDERED: polyethylene glycoL 3350 17 GM POWD.PACK PO STA (14:47)
[2021-12-02 16:32] LABS: Glucose,Whole Blood 233 mg/dL (75-99)
--- NOTE | 2021-12-02 18:39 | P.PN ---
Subjective Progress Note Date: 12/02/21 Patient is a 76-year-old male with coronary artery disease, congestive heart failure, dementia, hypertension, and dyslipidemia along with prior pulmonary embolism maintain on Xarelto who initially presented to the ER with complaints of creasing shortness of breath. In the ER he underwent an extensive evaluation was ultimately diagnosed with pneumonia with sepsis and acute on chronic hypoxic respiratory failure. Patient was subsequently admitted. He was started on Rocephin, Zithromax, and Solu-Medrol. He was seen by pulmonary. Blood cultures came back positive for strep pneumonia. Infectious disease was consulted due to bacteremia as well as left elbow wound. Orthopedics was consulted and evaluated the patient. They felt he had presumptive left olecranon osteomyelitis with a wound that probes to exposed bone. They recommended an MRI. Antibiotics were simplified to Rocephin. Imaging: X-ray left elbow-soft tissue wound without bony distraction no convincing radiologic evidence of osteomyelitis. X-ray: Left mid and lower lung interface opacities correlate for pneumonia Patient seen and examined at bedside: He complains of pain and shortness of breath, denies and pain. Very fatigued and unable to walk. General: non toxic, no distress, appears at stated age Derm: warm, dry Head: atraumatic, normocephalic, symmetric Eyes: EOMI, no lid lag, anicteric sclera Mouth: no lip lesion, mucus membranes moist Cardiovascular: S1S2 reg, no murmur, positive posterior tibial pulse bilateral, Lungs: Rhonchi bilateral bases , no accessory muscle use Abdominal: soft, nontender to palpation, no guarding, no appreciable organomegaly Ext: no gross muscle atrophy, no edema, no contractures, left elbow with dressing in place Neuro: CN II-XI grossly intact, no focal neuro deficits Psych: Alert, oriented, appropriate affect Assessment/Plan: Strep pneumonia community-acquired pneumonia Acute exacerbation of COPD Acute on chronic hypoxic respiratory failure baseline 3-4 L Strep Pneumonia Bacteremia -Pulmonary recommendations appreciated-oral prednisone, bronchodilators -Back on home O2 requirements. - ID recs appreciated - Rocpehin Left olecranon osteomyelitis -Orthopedic surgery recommendations appreciated. Plan I&D on 12/03/21. - Risk stratification: - NSQIP above average of all risk including cardiac, , any c omplication and serious complications - patient without active cardiac decompensation and no additional testing needed prior to surgery - Above average risk. Looks comfortable risks secondary to patient's continued increasing white blood cell count. History of pulmonary embolism -Xarelto Hyperglycemia - Likely secondary to steroids - follow BS - check A1C Lactic acidosis, resolved Sepsis, resolved Chronic: Chronic Congestive heart failure, unknown type Chronic back pain BPH Lumbar spondylolysis with myelopathy Hypertension Dyslipidemia Coronary artery disease DVT prophylaxis: SCDs Discussed with: Patient, nursing Anticipated discharge: in 2-[address]: SNF A total of 37 minutes was spent on the care of this complex patient more than 50% of the time was spent in counseling and care coordination. Active Medications Generic Name Dose Route Start Last Admin Trade Name Freq PRN Reason Stop Dose Admin Albuterol/Ipratropium 3 ml 11/27/21 02:24 11/27/21 03:05 Ipratropium-Albuterol 3 Ml Neb INHALATION 3 ml RT-Q2H PRN Administration Shortness Of Breath Or Wheezing Albuterol/Ipratropium 3 ml 11/27/21 12:00 12/02/21 14:59 Ipratropium-Albuterol 3 Ml Neb INHALATION 3 ml RT-Q4H ABDOULAYE Administration Alprazolam 0.25 mg 11/27/21 23:41 11/30/21 17:22 Alprazolam 0.25 Mg Tab PO 0.25 mg TID PRN Administration Anxiety Amlodipine Besylate 5 mg 12/02/21 10:30 12/02/21 11:01 Amlodipine 5 Mg Tab PO 5 mg BID ABDOULAYE Administration Budesonide/Formoterol Fumarate 2 puff 11/26/21 20:00 12/02/21 09:36 Symbicort 160-4.5 Mcg Inhaler INHALATION Not Given RT-BID ABDOULAYE Cholecalciferol 125 mcg 11/25/21 09:00 12/02/21 09:20 Cholecalciferol 125 Mcg (5000 Iu) Tablet PO 125 mcg DAILY ABDOULAYE Administration Clonidine 0.2 mg 11/27/21 23:32 12/02/21 07:26 Clonidine Hcl 0.2 Mg Tab PO 0.2 mg QID PRN Administration Blood Pressure - High Gabapentin 600 mg 11/24/21 22:00 12/02/21 15:11 Gabapentin 300 Mg Cap PO 600 mg TID ABDOULAYE Administration Guaifenesin 200 mg 11/30/21 18:00 12/02/21 18:01 Guaifenesin Syrup 100mg/5ml 200 Mg/10 Ml Cup PO 200 mg Q6HR ABDOULAYE Administration Sodium Chloride 1,000 mls @ 10 mls/hr 11/25/21 07:45 12/02/21 09:24 Saline 0.9% IV 10 mls/hr .Q24H ABDOULAYE Administration Protocol Ceftriaxone Sodium 2 gm/ 50 mls @ 100 mls/hr 11/27/21 11:00 12/02/21 09:20 Sodium Chloride IVPB 100 mls/hr Q24HR ABDOULAYE Administration Protocol Metoprolol Tartrate 12.5 mg 12/02/21 10:30 12/02/21 11:01 Metoprolol Tartrate 12.5 Mg Tab PO 12.5 mg BID ABDOULAYE Administration Miscellaneous Information 1 each 11/24/21 20:15 Pneumonia Protocol Utilized 1 Each Misc PO ONCE PRN Per Protocol Oxycodone/Acetaminophen 1 each 11/25/21 07:30 12/02/21 18:01 Oxycodone-Apap 10-325mg 1 Each Tab PO 1 each TID-W/MEALS ABDOULAYE Administration Oxycodone/Acetaminophen 1 each 11/26/21 07:23 11/27/21 23:48 Oxycodone-Apap 10-325mg 1 Each Tab PO 1 each Q6HR PRN Administration Pain Polyethylene Glycol 17 gm 12/03/21 09:00 Polyethylene Glycol 3350 17 Gm Powd.Pack PO DAILY ABDOULAYE Prednisone 40 mg 11/30/21 09:45 12/02/21 09:21 Prednisone 20 Mg Tab PO 40 mg DAILY ABDOULAYE Administration Thiamine HCl 100 mg 11/26/21 09:00 12/02/21 09:22 Thiamine 100 Mg Tab PO 100 mg DAILY ABDOULAYE Administration Objective - Vital Signs Vital signs: Vital Signs Temp 97.9 F 12/02/21 07:50 Pulse 81 12/02/21 07:50 Resp 18 12/02/21 07:50 BP 195/83 12/02/21 07:50 Pulse Ox 94 L 12/02/21 07:50 Intake & Output 12/01/21 12/02/21 12/02/21 18:59 06:59 18:59 Intake Total 240 340 118 Output Total 675 350 Balance -435 -10 118 Weight 68.039 kg Intake: Intake, IV Titration 100 Amount Sodium Chloride 0.9% 1, 100 000 ml @ 10 mls/hr IV . Q24H [facility] Rx#:[id number] Oral 240 240 118 Output: Urine 675 350 Other: Voiding Method Urinal Urinal - Labs CBC & Chem 7: 12/02/21 07:45 12/02/21 07:45 Labs: Microbiology - Last 24 Hours (Table) 11/28/21 11:15 Blood Culture - Preliminary Blood No Growth after 72 hours 11/28/21 11:25 Blood Culture - Preliminary Blood No Growth after 72 hours 11/26/21 07:46 Blood Culture - Preliminary Blood No Growth after 120 hours
[2021-12-02 20:16] LABS: Glucose,Whole Blood 178 mg/dL (75-99)
--- NOTE | 2021-12-02 21:14 | P.PN ---
Subjective Progress Note Date: 12/02/21 Principal diagnosis: Strep pneumo bacteremia pneumonia and a question of left elbow bursitis Patient is a 76-year-old male presented to the hospital with shortness of breath and cough with evidence of pneumonia and did have evidence of strep pneumo bacteremia, sputum has been cannula and the blood culture has been negative patient also having a problem with the left elbow which seemed to have been treated in the outpatient setting and culture were done to which I do not have any excess at this point , x-rays of the elbow did not show any bony changes. On today's evaluation that is 12/02/2021, the patient remains to be afebrile, the patient is breathing comfortably on nasal cannula oxygen, the patient is breathing comfortably, patient denies having any chest pain continued have a cough but not bringing up any sputum no worsening pain to the left elbow Objective - Vital Signs Vital signs: Vital Signs Temp 98.0 F 12/02/21 11:29 Pulse 84 12/02/21 11:48 Resp 18 12/02/21 11:29 BP 135/64 12/02/21 11:29 Pulse Ox 92 L 12/02/21 11:29 Intake & Output 12/01/21 12/02/21 12/02/21 18:59 06:59 18:59 Intake Total 240 340 418 Output Total 675 350 775 Balance -435 10 345 Weight 68.039 kg Intake: Intake, IV Titration 100 Amount Sodium Chloride 0.9% 1, 100 000 ml @ 10 mls/hr IV . Q24H [facility] Rx#:[id number] Oral 240 240 418 Output: Urine 675 350 775 Other: Voiding Method Urinal Urinal Urinal - Exam GENERAL DESCRIPTION: An elderly male lying in bed in no distress RESPIRATORY SYSTEM: Unlabored breathing , decreased breath sounds at bases HEART: S1 S2 regular rate and rhythm , ABDOMEN: Soft , no tenderness EXTREMITIES: Left elbow is currently dressed no drainage on the dressing - Labs CBC & Chem 7: 12/02/21 07:45 12/02/21 07:45 Labs: Abnormal Lab Results - Last 24 Hours (Table) 12/02/21 12/02/21 Range/Units 07:45 07:45 WBC 16.6 H (3.8-10.6) k/uL RBC 4.06 L (4.30-5.90) m/uL MCV 103.3 H (80.0-100.0) fL Neutrophils # (Manual) 12.20 H (1.3-7.7) k/uL Metamyelocytes # (Man) 0.50 H (0) k/uL Sodium 136 L (137-145) mmol/L Carbon Dioxide 31 H (22-30) mmol/L Glucose 100 H (74-99) mg/dL Total Protein 5.6 L (6.3-8.2) g/dL Albumin 3.0 L (3.5-5.0) g/dL Microbiology - Last 24 Hours (Table) 11/26/21 07:46 Blood Culture - Final Blood No Growth after 144 hours 11/28/21 11:15 Blood Culture - Preliminary Blood No Growth after 72 hours 11/28/21 11:25 Blood Culture - Preliminary Blood No Growth after 72 hours Assessment and Plan (1) Pneumonia Current Visit: Yes Status: Acute Code(s): J18.9 - PNEUMONIA, UNSPECIFIED ORGANISM SNOMED Code(s): 561110839 Plan: 1patient with a strep pneumo bacteremia source likely pneumonia in this patient presented to hospital with increasing shortness of breath and cough and evidence of pulmonary infiltrate and elevated procalcitonin. 2patient with a left elbow wound and apparently the patient did have a I&D done in the outpatient setting seems like a BURSITIS and did have outpatient cultures which we are not able to obtain, x-rays were negative for any bony changes , culture done this admission has been negative so far, we will try to obtain a culture from his PCP biological technical officer is working to get those cultures 3patient to continue with Rocephin 2 g daily while inpatient and monitor clinical course closely Time with Patient: Less than 30
[2021-12-03] MEDS: guaiFENesin SYRUP 100MG/5ML 200 MG/10 ML CUP PO SCH ×4 (01:07→16:13)
[2021-12-03] MEDS: IPRATROPIUM-ALBUTEROL 3 ML NEB INHALATION SCH ×6 (03:40→23:44)
[2021-12-03] MEDS: oxyCODONE-APAP 10-325MG 1 EACH TAB PO SCH ×3 (03:45→16:13)
[2021-12-03 06:04] LABS: Glucose,Whole Blood 85 mg/dL (75-99)
[2021-12-03] MEDS: SYMBICORT 160-4.5 MCG INHALER INHALATION SCH ×2 (07:16→19:14)
[2021-12-03] MEDS: polyethylene glycoL 3350 17 GM POWD.PACK PO SCH (08:54)
[2021-12-03] MEDS: amLODIPine 5 MG TAB PO SCH ×2 (08:55→20:03)
[2021-12-03] MEDS: CHOLECALCIFEROL 125 MCG (5000 IU) TABLET PO SCH (08:55)
[2021-12-03] MEDS: GABAPENTIN 300 MG CAP PO SCH ×3 (08:55→20:03)
[2021-12-03] MEDS: METOPROLOL TARTRATE 12.5 MG TAB PO SCH ×2 (08:56→20:03)
[2021-12-03] MEDS: predniSONE 20 MG TAB PO SCH (08:56)
[2021-12-03] MEDS: THIAMINE 100 MG TAB PO SCH (08:56)
[2021-12-03 09:18] LABS: HCT 42.8 % (39.0-53.0); HGB 13.4 gm/dL (13.0-17.5); Hypochromasia Slight; MCH 32.3 pg (25.0-35.0); MCHC 31.3 g/dL (31.0-37.0); MCV 103.1 fL (80.0-100.0); Macrocytosis Slight; Mean Platelet Volume 7.3; Platelet Count 421 k/uL (150-450); RBC 4.16 m/uL (4.30-5.90); RDW 13.7 % (11.5-15.5); WBC 21.1 k/uL (3.8-10.6)
[2021-12-03] MEDS ORDERED: LACTATED RINGERS 1,000 ML IV ONE (09:22)
[2021-12-03] MEDS ORDERED: ONDANSETRON 4 MG/2 ML VIAL ONE (09:26)
[2021-12-03] MEDS ORDERED: DEXAMETHASONE SOD PHOSPHATE 4 MG/ML 1 ML VIAL IVP ONE (09:30)
[2021-12-03] MEDS ORDERED: ONDANSETRON 4 MG/2 ML VIAL IVP ONE (09:30)
[2021-12-03] MEDS ORDERED: hydrALAZINE HCL 20 MG/ML 1 ML VIAL IVP ONE (09:31)
[2021-12-03 09:38] LABS: Glucose,Whole Blood 82 mg/dL (75-99)
[2021-12-03] MEDS ORDERED: FUROSEMIDE 10 MG/ML 4 ML VIAL IV ONE ×2 (09:42→09:58)
[2021-12-03] MEDS ORDERED: PROPOFOL 10 MG/ML 20 ML VIAL IV ONE (10:22)
[2021-12-03] MEDS ORDERED: fentaNYL (PF) 50 MCG/ML 2 ML AMP ONE (10:22)
[2021-12-03] MEDS ORDERED: LIDOCAINE 1% INJ 10MG/ML (20 ML MDV) ONE (10:22)
[2021-12-03] MEDS ORDERED: SUCCINYLCHOLINE CHLORIDE 100 MG/5 ML SYR IV ONE (10:22)
[2021-12-03] MEDS ORDERED: PHENYLEPHRINE-0.9% NACL SYG 1,000 MCG/10 ML SYRINGE ONE (10:22)
--- NOTE | 2021-12-03 10:55 | P.PN ---
Subjective Progress Note Date: 12/03/21 This a pleasant 76-year-old male patient with a known history of coronary artery disease congestive heart failure, T CVA/TIA, dementia, hypertension, hyperlipidemia, pulmonary embolism and maintained on Xarelto., He also has a history of chronic obstructive pulmonary disease with FEV1 value of 49% of pred icted. He had a previous heavy smoking tobacco history but quit back in 2016. He presented here to the emergency room yesterday with a three-day history of increasing shortness of breath. He was also found to be in a tachycardic. He received Lopressor in the emergency department. Chest x-ray revealed scattered airspace opacities within the left mid and lower lung hernandes. Background COPD changes. White count 18.6. Hemoglobin 13.4. Sodium 139. Potassium 4.7. BUN 22. Creatinine 1.27. Glucose 194. Lactic acid 3.0. Troponin negative times one. ProBNP 183. Coronavirus PCR not detected. Legioinella antigen negative. Blood cultures reveal no growth. He's been initiated on ceftriaxone and azithromycin along with bronchodilators and IV solu Medrol. Anticoagulated with Xarelto. On 11/26/2021 patient seen in follow-up on selective care unit, he states he is still coughing, feels congested, at times she is able to bring up some whitish colored sputum. Sputum specimen has been sent and results are pending, patient remains on Zosyn for antibiotic coverage, his been afebrile overnight, pro- calcitonin is significantly elevated at 18.4,multiple blood cultures were positive for strep pneumonia. Repeat blood culture has been ordered and pending at this time. Lung sounds reveal diffuse wheezes, rhonchi. Patient has an over [id number] smoking history, in remission for last 10 years, patient has advanced COPD he is only on home oxygen at 3-4 L and maintenance dose prednisone 10 mg daily. On IV Solu-Medrol 40 mg every 12 hours, DuoNeb 4 times a day. Currently amiodarone drip has been discontinued, patient is currently in sinus mechanism with a controlled rate. He is on Xarelto 2.5 mg BID. On 11/27/2021 patient seen in follow-up on selective care unit. Patient is quiet bronchospastic today, has a congested cough, at times he is able to bring up some whitish colored phlegm, he remains on Zosyn, sputum culture was sent, preliminary Gram stain shows few PMNs, many gram-positive cocci, few gram- positive bacilli. Follow-up blood culture from 11/26/2021 has shown no growth thus far. Afebrile. Vital signs have been stable, he remains on 3 L of oxygen pulse ox is 96%, yesterday we increased his IV steroids to 60 g every 6 hours, he is getting breathing treatments on an as-needed basis which we will switch to scheduled bases. On 11/28/2021 patient seen in follow-up on selective care unit. Patient is on 4 L of oxygen pulse ox is 92%, is hypertensive, he is a bit anxious at times, still has a congested cough, he is bringing up some yellowish colored phlegm, his been afebrile, he remains on antibiotics, steroids switched him to IV Rocephin 2 g every 24 hours, today we'll contact the IV steroids and will continue on breathing treatments. Patient's daughters at the bedside and she states patient has been having pain swelling and drainage out of a wound on his left elbow which had been there for the last 3 weeks, and had been treated with oral antibiotics and steroid injection at the PCPs office. The left elbow is wrapped, there is some serous drainage, after removing the wraps there is open ulcer, does not appear to be infected, but will be cultured nevertheless. Patient does have swelling surrounding the area and upper forearm and lower arm as well. On 12/01/2021 patient seen in follow-up on selective care unit, he is resting comfortably in bed, seems to be breathing easier. Doesn't appear to be in any acute distress. Patient currently remains on Rocephin 2 g every 24 hours, nebulized bronchodilators, his IV steroids have been transitioned to oral prednisone. He is less short of breath, left bronchospastic. On 3 L of oxygen pulse ox of 94%. His follow-up blood cultures from 11/26/2021 and 11/28/2021 have shown no growth thus far, wound culture from his left elbow had shown no growth, patient was evaluated by orthopedic surgery and the plan is for I&D procedure likely on 12/03/2021 pending clearance from cardiology and pulmonary. On 12/02/2021 patient seen in follow-up on selective care unit, he is breathing comfortably, he is currently on 3 L of oxygen pulse ox is 94%, still has a congested cough, at times he is told to bring up some creamy colored sputum, and he states he did see some red in it but a small amount. He continues on IV Rocephin 2 g every 24 hours, his vital signs have been stable. Lung sounds are diminished, no wheezing or rhonchi noted on today's exam, continues on nebulized bronchodilators. Hemodynamically she is stable. he is in sinus mechanism. No new labs today. IV fluids of 0.9 normal saline at a rate of 20 ML per hour His blood cultures from 11/26/2021 and 11/28/2021 have shown no growth, left elbow wound culture was negative. Patient is getting local wound treatments. Orthopedic surgery is following and incision and drainage of the left elbow wound was recommended. From pulmonary perspective patient is stable for I&D of the left elbow tomorrow on 12/03/2021. On 12/03/2021 patient seen in follow-up on selective care unit, he sitting up in the chair, does not appear to be in any acute distress, he has mild wheezing on today's exam, mild congestive cough, he is able to produce some whaley colored phlegm from time to time. Remains on Rocephin 2 g every 24 hours, vital signs have been stable, he remains on 3 L of oxygen, pulse ox is 91-96%. No acute e vents overnight. Follow up blood cultures have shown no growth at 96 hour sushila. Left elbow culture has shown no growth. Patient is scheduled for I&D of the left elbow today. Objective - Vital Signs Vital signs: Vital Signs Temp 97.0 F L 12/03/21 09:13 Pulse 84 12/03/21 10:00 Resp 18 12/03/21 10:00 BP 181/86 12/03/21 10:00 Pulse Ox 97 12/03/21 10:00 Intake & Output 12/02/21 12/03/21 12/03/21 18:59 06:59 18:59 Intake Total 418 240 450 Output Total 1290 1185 Balance -872 240 -735 Intake: IV 250 Oral 418 240 200 Output: Urine 1290 1185 Other: Voiding Method Urinal Urinal Urinal - Exam GENERAL EXAM: Alert, pleasant, 76-year-old white male, on 3 L of oxygen pulse ox is 94%, comfortable in no apparent distress. HEAD: Normocephalic/atraumatic. EYES: Normal reaction of pupils, equal size. Conjunctiva pink, sclera white. NOSE: Clear with pink turbinates. THROAT: No erythema or exudates. NECK: No masses, no JVD, no thyroid enlargement, no adenopathy. CHEST: No chest wall deformity. Symmetrical expansion. LUNGS: Equal air entry with diminished breath sounds. CVS: Regular rate and rhythm, normal S1 and S2, no gallops, no murmurs, no rubs ABDOMEN: Soft, nontender. No hepatosplenomegaly, normal bowel sounds, no guarding or rigidity. EXTREMITIES: No clubbing, mild lower extremity and pedal edema, no cyanosis, 2+ pulses and upper and lower extremities. MUSCULOSKELETAL: Muscle strength and tone normal. Left elbow swelling and open ulcer on left elbow SPINE: No scoliosis or deformity SKIN: No rashes CENTRAL NERVOUS SYSTEM: Alert and oriented -3. No focal deficits, tone is normal in all 4 extremities. PSYCHIATRIC: Alert and oriented -3. Appropriate affect. Intact judgment and insight. - Labs CBC & Chem 7: 12/03/21 08:06 12/02/21 07:45 Labs: Abnormal Lab Results - Last 24 Hours (Table) 12/02/21 12/02/21 12/03/21 Range/Units 16:31 20:13 08:06 WBC 21.1 H (3.8-10.6) k/uL RBC 4.16 L (4.30-5.90) m/uL MCV 103.1 H (80.0-100.0) fL POC Glucose (mg/dL) 233 H 178 H (75-99) mg/dL Microbiology - Last 24 Hours (Table) 11/28/21 11:15 Blood Culture - Preliminary Blood No Growth after 96 hours 11/28/21 11:25 Blood Culture - Preliminary Blood No Growth after 96 hours 11/26/21 07:46 Blood Culture - Final Blood No Growth after 144 hours Assessment and Plan Plan: Assessment: #1. Acute on chronic hypoxic respiratory failure secondary to an acute community-acquired pneumonia mainly in the left lung #2. Strep pneumonia bacteremia likely related to pneumonia, community acquired #3. Acute exacerbation of chronic obstructive pulmonary disease secondary to above. FEV1 value of 41% of predicted #4. History of pulmonary embolism, anticoagulated with Xarelto #5. Hypertension #6. History of congestive heart failure, unspecified #7. Chronic thoracic back pain #8. Benign prosthetic hyperplasia #9. Lumbar spondylosis with myelopathy #10. [id number] smoking history, in remission for last 10 years #11. Chronic hypoxic respiratory failure related to advanced COPD patient is normally on 3-4 L/m of home oxygen and maintenance dose prednisone of 10 mg #12. Left elbow wound, with the possibility of osteomyelitis Plan: No acute events overnight There is mild wheezing and congestion Continue current medical treatment Continue antibiotics, breathing treatments and steroids We'll continue following the patient in the postoperative period following his I & D of the left elbow I have personally seen and examined the patient, performed the documentation and the assessment and plan as written. Number of minutes spent on the visit: [10] Time with Patient: Less than 30
[2021-12-03 12:04] LABS: Glucose,Whole Blood 114 mg/dL (75-99)
[2021-12-03 13:50] LABS: African American GFR (CKD) >90 (>60 ml/min/1.73 sqM); Anion Gap 4 mmol/L; Blood Urea Nitrogen 21 mg/dL (9-20); Calcium 9.2 mg/dL (8.4-10.2); Carbon Dioxide 38 mmol/L (22-30); Chloride 95 mmol/L (98-107); Glucose 134 mg/dL (74-99); Non-African American GFR(CKD) 82 (>60 ml/min/1.73 sqM); Potassium 4.3 mmol/L (3.5-5.1); Sodium 137 mmol/L (137-145)
[2021-12-03 14:46] LABS: Estimated Average Glucose UNC
[2021-12-03 16:58] LABS: Glucose,Whole Blood 260 mg/dL (75-99)
--- NOTE | 2021-12-03 19:22 | P.PN ---
Subjective Progress Note Date: 12/03/21 (delayed charting seen at 0815) Patient is a 76-year-old male with coronary artery disease, congestive heart failure, dementia, hypertension, and dyslipidemia along with prior pulmonary embolism maintain on Xarelto who initially presented to the ER with complaints of creasing shortness of breath. In the ER he underwent an extensive evaluation was ultimately diagnosed with pneumonia with sepsis and acute on chronic hypoxic respiratory failure. Patient was subsequently admitted. He was started on Rocephin, Zithromax, and Solu-Medrol. He was seen by pulmonary. Blood cultures came back positive for strep pneumonia. Infectious disease was consulted due to bacteremia as well as left elbow wound. Orthopedics was consulted and evaluated the patient. They felt he had presumptive left olecranon osteomyelitis with a wound that probes to exposed bone. They recommended an MRI. Antibiotics were simplified to Rocephin. Imaging: X-ray left elbow-soft tissue wound without bony distraction no convincing radiologic evidence of osteomyelitis. X-ray: Left mid and lower lung interface opacities correlate for pneumonia Patient seen and examined at bedside: He is not speaking much but has pain. Guardian present at bedside. Discussed that culture here is negative but we will know more after procedure today. General: non toxic, no distress, appears at stated age Derm: warm, dry Head: atraumatic, normocephalic, symmetric Eyes: EOMI, no lid lag, anicteric sclera Mouth: no lip lesion, mucus membranes moist Cardiovascular: S1S2 reg, no murmur, positive posterior tibial pulse bilateral, Lungs: Rhonchi bilateral bases , no accessory muscle use Abdominal: soft, nontender to palpation, no guarding, no appreciable organomegaly Ext: no gross muscle atrophy, no edema, no contractures, left elbow with dressing in place Neuro: CN II-XI grossly intact, no focal neuro deficits Psych: Alert, oriented, appropriate affect Assessment/Plan: Strep pneumonia community-acquired pneumonia Acute exacerbation of COPD Acute on chronic hypoxic respiratory failure baseline 3-4 L Strep Pneumonia Bacteremia -Pulmonary recommendations appreciated-oral prednisone, bronchodilators -Back on home O2 requirements. - ID recs appreciated - Rocpehin Left olecranon osteomyelitis -Orthopedic surgery recommendations appreciated. Plan I&D today - Risk stratification: - NSQIP above average of all risk including cardiac, , any complication and serious complications - patient without active cardiac decompensation and no additional testing needed prior to surgery - Above average risk. Looks comfortable risks secondary to patient's continued increasing white blood cell count. History of pulmonary embolism -Xarelto Hyperglycemia - Likely secondary to steroids - follow BS - A1C pending Lactic acidosis, resolved Sepsis, resolved Chronic: Chronic Congestive heart failure, unknown type Chronic back pain BPH Lumbar spondylolysis with myelopathy Hypertension Dyslipidemia Coronary artery disease DVT prophylaxis: SCDs Discussed with: Patient, nursing Anticipated discharge: in 2-[address]: SNF A total of 37 minutes was spent on the care of this complex patient more than 50% of the time was spent in counseling and care coordination. Active Medications Generic Name Dose Route Start Last Admin Trade Name Freq PRN Reason Stop Dose Admin Albuterol/Ipratropium 3 ml 11/27/21 02:24 11/27/21 03:05 Ipratropium-Albuterol 3 Ml Neb INHALATION 3 ml RT-Q2H PRN Administration Shortness Of Breath Or Wheezing Albuterol/Ipratropium 3 ml 11/27/21 12:00 12/03/21 19:13 Ipratropium-Albuterol 3 Ml Neb INHALATION 3 ml RT-Q4H ABDOULAYE Administration Alprazolam 0.25 mg 11/27/21 23:41 11/30/21 17:22 Alprazolam 0.25 Mg Tab PO 0.25 mg TID PRN Administration Anxiety Amlodipine Besylate 5 mg 12/02/21 10:30 12/03/21 08:55 Amlodipine 5 Mg Tab PO 5 mg BID ABDOULAYE Administration Budesonide/Formoterol Fumarate 2 puff 11/26/21 20:00 12/03/21 19:14 Symbicort 160-4.5 Mcg Inhaler INHALATION 2 puff RT-BID ABDOULAYE Administration Cholecalciferol 125 mcg 11/25/21 09:00 12/03/21 08:55 Cholecalciferol 125 Mcg (5000 Iu) Tablet PO 125 mcg DAILY ABDOULAYE Administration Clonidine 0.2 mg 11/27/21 23:32 12/02/21 07:26 Clonidine Hcl 0.2 Mg Tab PO 0.2 mg QID PRN Administration Blood Pressure - High Gabapentin 600 mg 11/24/21 22:00 12/03/21 16:13 Gabapentin 300 Mg Cap PO 600 mg TID ABDOULAYE Administration Guaifenesin 200 mg 11/30/21 18:00 12/03/21 16:13 Guaifenesin Syrup 100mg/5ml 200 Mg/10 Ml Cup PO 200 mg Q6HR ABDOULAYE Administration Sodium Chloride 1,000 mls @ 10 mls/hr 11/25/21 07:45 12/02/21 09:24 Saline 0.9% IV 10 mls/hr .Q24H ABDOULAYE Administration Protocol Ceftriaxone Sodium 2 gm/ 50 mls @ 100 mls/hr 11/27/21 11:00 12/03/21 10:27 Sodium Chloride IVPB 50 mls Q24HR ABDOULAYE Administration Protocol Metoprolol Tartrate 12.5 mg 12/02/21 10:30 12/03/21 08:56 Metoprolol Tartrate 12.5 Mg Tab PO 12.5 mg BID ABDOULAYE Administration Miscellaneous Information 1 each 11/24/21 20:15 Pneumonia Protocol Utilized 1 Each Misc PO ONCE PRN Per Protocol Oxycodone/Acetaminophen 1 each 11/25/21 07:30 12/03/21 16:13 Oxycodone-Apap 10-325mg 1 Each Tab PO 1 each TID-W/MEALS ABDOULAYE Administration Oxycodone/Acetaminophen 1 each 11/26/21 07:23 11/27/21 23:48 Oxycodone-Apap 10-325mg 1 Each Tab PO 1 each Q6HR PRN Administration Pain Polyethylene Glycol 17 gm 12/03/21 09:00 12/03/21 08:54 Polyethylene Glycol 3350 17 Gm Powd.Pack PO 17 gm DAILY ABDOULAYE Administration Prednisone 40 mg 11/30/21 09:45 12/03/21 08:56 Prednisone 20 Mg Tab PO 40 mg DAILY ABDOULAYE Administration Thiamine HCl 100 mg 11/26/21 09:00 12/03/21 08:56 Thiamine 100 Mg Tab PO 100 mg DAILY ABDOULAYE Administration Objective - Vital Signs Vital signs: Vital Signs Temp 98.5 F 12/03/21 16:00 Pulse 72 12/03/21 16:00 Resp 16 12/03/21 16:00 BP 151/71 12/03/21 16:00 Pulse Ox 81 L 12/03/21 16:00 Intake & Output 12/03/21 12/03/21 12/04/21 06:59 18:59 06:59 Intake Total 240 1090 Output Total 1985 Balance 240 -895 Weight 68.039 kg Intake: IV 350 Oral 240 740 Output: Urine 1985 Estimated Blood Loss 0 Other: Voiding Method Urinal Urinal - Labs CBC & Chem 7: 12/03/21 08:06 12/03/21 13:06 Labs: Abnormal Lab Results - Last 24 Hours (Table) 12/02/21 12/03/21 12/03/21 Range/Units 20:13 08:06 12:01 WBC 21.1 H (3.8-10.6) k/uL RBC 4.16 L (4.30-5.90) m/uL MCV 103.1 H (80.0-100.0) fL Chloride (98-107) mmol/L Carbon Dioxide (22-30) mmol/L BUN (9-20) mg/dL Glucose (74-99) mg/dL POC Glucose (mg/dL) 178 H 114 H (75-99) mg/dL 12/03/21 12/03/21 Range/Units 13:06 16:53 WBC (3.8-10.6) k/uL RBC (4.30-5.90) m/uL MCV (80.0-100.0) fL Chloride 95 L (98-107) mmol/L Carbon Dioxide 38 H (22-30) mmol/L BUN 21 H (9-20) mg/dL Glucose 134 H (74-99) mg/dL POC Glucose (mg/dL) 260 H (75-99) mg/dL Microbiology - Last 24 Hours (Table) 11/28/21 11:15 Blood Culture - Preliminary Blood No Growth after 120 hours 11/28/21 11:25 Blood Culture - Preliminary Blood No Growth after 120 hours
--- NOTE | 2021-12-03 19:44 | P.OP ---
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 Procedure(s) Performed: 1.) Incision and excisional debridement of left olecranon bone osteomyelitis with bone cultures. Anesthesia: GETA Surgeon: Brady Marina Service Delivery Supervisor #1: Carlton Stanton Estimated Blood Loss (ml): 0 Pathology: other (Olecranon bone x1) Condition: stable Disposition: PACU Description of Procedure: This is a 76 year old male with a left elbow non healing wound with exposed olecranon who presents today for surgical intervention. Risks and benefits of surgery were discussed with the patient and DPOA including bleeding, damage to surrounding tissue, infection, need for further surgery as well as risks of anesthesia including pulmonary embolism and even and the patient wished to proceed with surgical intervention. The patient was seen in the pre-operative area by myself. Consent and H&P were completed and updated. The correct extrem ity was marked in the pre-operative area by myself and all other questions were answered. Operative Narrative: The patient was brought to the operating room by the department of anesthesia. They remained on the portable stretcher and a rolling hand table was brought to the side of the operative extremity. Pre-operative time out was performed indicating the correct patient, procedure and laterality. All in the room agreed. Pre-operative antibiotics were given prior to skin incision. The patient was then drifted off to sleep by the department of anesthesia. A nonster ile tourniquet was then applied to the operative extremity and the left upper extremity was then prepped and draped in normal sterile fashion. The operative extremity was the exsanguinated with an esmarch bandage and the tourniquet was inflated to 250mmHg. 15 blade scalpel was utilized to sharply excise previous skin wound edges to fresh tissue. The incision was extended proximal and distal. Adhesions were broken up around the olecranon bursa which was scarred down to surrounding tissue and non viable bursa was sharply excised with scalpel. A ronguer was then utilized to debride non viable bone, upon removal bone was found to be soft. Bone was then taken for specimen. The wound was the copiously irrigated with sterile saline. Closure was performed with 3-0 nylon suture in a horizontal mattress fashion. A large bulky dressing consisting of 4x4s, adaptic and cast padding with zoey wrap. Tourniquet was then let down and the hand had immediate perfusion. The patient was then woken by the department of anesthesia and transferred to PACU in stable condition. Carlton JACKSON was present for the case to assist in major portions of the procedure. Post op Plan: Dressing may stay on until post operative day 2. Dressing can be changed at that time. We will plan to follow cultures of collected bone and continue his current antibiotic regimen. He has weight bearing as tolerated with this extremity and is to keep the wound covered while at rest. He is stable for DC from orthopedic standpoint and may follow up in outpatient setting in 10-14 days. Brady Marina D.O. Orthopedic Hand/Upper Extremity Surgeon
[2021-12-03 19:57] LABS: Glucose,Whole Blood 243 mg/dL (75-99)
[2021-12-03] MEDS: oxyCODONE-APAP 10-325MG 1 EACH TAB PO PRN (20:03)
[2021-12-03] MEDS: ALPRAZolam 0.25 MG TAB PO PRN (20:03)
[2021-12-04] MEDS: guaiFENesin SYRUP 100MG/5ML 200 MG/10 ML CUP PO SCH ×5 (03:08→23:56)
[2021-12-04] MEDS: IPRATROPIUM-ALBUTEROL 3 ML NEB INHALATION SCH ×6 (03:23→23:35)
[2021-12-04] MEDS: SODIUM CHLORIDE 0.9% 1,000 ML IV SCH (05:53)
[2021-12-04 06:19] LABS: Glucose,Whole Blood 138 mg/dL (75-99)
[2021-12-04] MEDS: SYMBICORT 160-4.5 MCG INHALER INHALATION SCH ×2 (07:20→19:35)
[2021-12-04] MEDS: GABAPENTIN 300 MG CAP PO SCH ×3 (08:09→20:20)
[2021-12-04] MEDS: THIAMINE 100 MG TAB PO SCH (08:09)
[2021-12-04] MEDS: CHOLECALCIFEROL 125 MCG (5000 IU) TABLET PO SCH (08:09)
[2021-12-04] MEDS: oxyCODONE-APAP 10-325MG 1 EACH TAB PO SCH ×3 (08:09→17:08)
[2021-12-04] MEDS: amLODIPine 5 MG TAB PO SCH ×2 (08:09→20:20)
[2021-12-04] MEDS: predniSONE 20 MG TAB PO SCH (08:09)
[2021-12-04] MEDS: METOPROLOL TARTRATE 12.5 MG TAB PO SCH ×2 (08:09→20:20)
[2021-12-04] MEDS: polyethylene glycoL 3350 17 GM POWD.PACK PO SCH (08:10)
[2021-12-04] MEDS ORDERED: FUROSEMIDE 10 MG/ML 4 ML VIAL IV STA (08:39)
[2021-12-04] MEDS: methylPREDNISolone SOD SUCCI 40 MG/ML 1 ML VIAL IV SCH ×3 (08:56→23:56)
[2021-12-04] MEDS: RIVAROXABAN 2.5 MG TABLET PO SCH ×2 (11:24→20:20)
[2021-12-04 11:27] LABS: Glucose,Whole Blood 111 mg/dL (75-99)
[2021-12-04 11:43] LABS: HCT 44.9 % (39.0-53.0); HGB 13.8 gm/dL (13.0-17.5); MCH 31.3 pg (25.0-35.0); MCHC 30.8 g/dL (31.0-37.0); MCV 101.6 fL (80.0-100.0); Macrocytosis Slight; Platelet Count 498 k/uL (150-450); RBC 4.42 m/uL (4.30-5.90); RDW 13.4 % (11.5-15.5); WBC 29.1 k/uL (3.8-10.6)
--- NOTE | 2021-12-04 11:46 | P.PN ---
Subjective Progress Note Date: 12/04/21 This a pleasant 76-year-old male patient with a known history of coronary artery disease congestive heart failure, T CVA/TIA, dementia, hypertension, hyperlipidemia, pulmonary embolism and maintained on Xarelto., He also has a history of chronic obstructive pulmonary disease with FEV1 value of 49% of pred icted. He had a previous heavy smoking tobacco history but quit back in 2016. He presented here to the emergency room yesterday with a three-day history of increasing shortness of breath. He was also found to be in a tachycardic. He received Lopressor in the emergency department. Chest x-ray revealed scattered airspace opacities within the left mid and lower lung hernandes. Background COPD changes. White count 18.6. Hemoglobin 13.4. Sodium 139. Potassium 4.7. BUN 22. Creatinine 1.27. Glucose 194. Lactic acid 3.0. Troponin negative times one. ProBNP 183. Coronavirus PCR not detected. Legioinella antigen negative. Blood cultures reveal no growth. He's been initiated on ceftriaxone and azithromycin along with bronchodilators and IV solu Medrol. Anticoagulated with Xarelto. On 11/26/2021 patient seen in follow-up on selective care unit, he states he is still coughing, feels congested, at times she is able to bring up some whitish colored sputum. Sputum specimen has been sent and results are pending, patient remains on Zosyn for antibiotic coverage, his been afebrile overnight, pro- calcitonin is significantly elevated at 18.4,multiple blood cultures were positive for strep pneumonia. Repeat blood culture has been ordered and pending at this time. Lung sounds reveal diffuse wheezes, rhonchi. Patient has an over [id number] smoking history, in remission for last 10 years, patient has advanced COPD he is only on home oxygen at 3-4 L and maintenance dose prednisone 10 mg daily. On IV Solu-Medrol 40 mg every 12 hours, DuoNeb 4 times a day. Currently amiodarone drip has been discontinued, patient is currently in sinus mechanism with a controlled rate. He is on Xarelto 2.5 mg BID. On 11/27/2021 patient seen in follow-up on selective care unit. Patient is quiet bronchospastic today, has a congested cough, at times he is able to bring up some whitish colored phlegm, he remains on Zosyn, sputum culture was sent, preliminary Gram stain shows few PMNs, many gram-positive cocci, few gram- positive bacilli. Follow-up blood culture from 11/26/2021 has shown no growth thus far. Afebrile. Vital signs have been stable, he remains on 3 L of oxygen pulse ox is 96%, yesterday we increased his IV steroids to 60 g every 6 hours, he is getting breathing treatments on an as-needed basis which we will switch to scheduled bases. On 11/28/2021 patient seen in follow-up on selective care unit. Patient is on 4 L of oxygen pulse ox is 92%, is hypertensive, he is a bit anxious at times, still has a congested cough, he is bringing up some yellowish colored phlegm, his been afebrile, he remains on antibiotics, steroids switched him to IV Rocephin 2 g every 24 hours, today we'll contact the IV steroids and will continue on breathing treatments. Patient's daughters at the bedside and she states patient has been having pain swelling and drainage out of a wound on his left elbow which had been there for the last 3 weeks, and had been treated with oral antibiotics and steroid injection at the PCPs office. The left elbow is wrapped, there is some serous drainage, after removing the wraps there is open ulcer, does not appear to be infected, but will be cultured nevertheless. Patient does have swelling surrounding the area and upper forearm and lower arm as well. On 12/01/2021 patient seen in follow-up on selective care unit, he is resting comfortably in bed, seems to be breathing easier. Doesn't appear to be in any acute distress. Patient currently remains on Rocephin 2 g every 24 hours, nebulized bronchodilators, his IV steroids have been transitioned to oral prednisone. He is less short of breath, left bronchospastic. On 3 L of oxygen pulse ox of 94%. His follow-up blood cultures from 11/26/2021 and 11/28/2021 have shown no growth thus far, wound culture from his left elbow had shown no growth, patient was evaluated by orthopedic surgery and the plan is for I&D procedure likely on 12/03/2021 pending clearance from cardiology and pulmonary. On 12/02/2021 patient seen in follow-up on selective care unit, he is breathing comfortably, he is currently on 3 L of oxygen pulse ox is 94%, still has a congested cough, at times he is told to bring up some creamy colored sputum, and he states he did see some red in it but a small amount. He continues on IV Rocephin 2 g every 24 hours, his vital signs have been stable. Lung sounds are diminished, no wheezing or rhonchi noted on today's exam, continues on nebulized bronchodilators. Hemodynamically she is stable. he is in sinus mechanism. No new labs today. IV fluids of 0.9 normal saline at a rate of 20 ML per hour His blood cultures from 11/26/2021 and 11/28/2021 have shown no growth, left elbow wound culture was negative. Patient is getting local wound treatments. Orthopedic surgery is following and incision and drainage of the left elbow wound was recommended. From pulmonary perspective patient is stable for I&D of the left elbow tomorrow on 12/03/2021. On 12/03/2021 patient seen in follow-up on selective care unit, he sitting up in the chair, does not appear to be in any acute distress, he has mild wheezing on today's exam, mild congestive cough, he is able to produce some whaley colored phlegm from time to time. Remains on Rocephin 2 g every 24 hours, vital signs have been stable, he remains on 3 L of oxygen, pulse ox is 91-96%. No acute e vents overnight. Follow up blood cultures have shown no growth at 96 hour sushila. Left elbow culture has shown no growth. Patient is scheduled for I&D of the left elbow today. 12/04/2021 patient is seen in follow-up on selective care unit, he is more dyspneic bronchospastic on today's exam, increased chest congestion, at times he is able to bring up some thick yellow phlegm. In addition she is complaining of pain in his abdomen, abdomen is soft, but distended. Denies any nausea or vomiting, no diarrhea. Yesterday patient underwent incision and drainage of the left elbow, please refer to the operative report. History of gastric liters of oxygen pulse ox is 92%, he is afebrile, vital signs have been stable, lung sounds are diminished, with diffuse rhonchi, audible congestion. And in addition patient is complaining of increased swelling in his bilateral lower extremities. He has been on oral prednisone, breathing treatments. He remains on IV Rocephin. Objective - Vital Signs Vital signs: Vital Signs Temp 98.3 F 12/04/21 08:00 Pulse 108 H 12/04/21 11:27 Resp 17 12/04/21 08:00 BP 131/68 12/04/21 08:00 Pulse Ox 92 L 12/04/21 08:00 Intake & Output 12/03/21 12/04/21 12/04/21 18:59 06:59 18:59 Intake Total 1090 240 Output Total 1984 100 900 Balance -895 140 -900 Weight 68.039 kg Intake: IV 350 Oral 740 240 Output: Urine 1984 100 900 Estimated Blood Loss 0 Other: Voiding Method Urinal Urinal - Exam GENERAL EXAM: Alert, pleasant, 76-year-old white male, on 3 L of oxygen pulse ox is 92%, comfortable in no apparent distress. HEAD: Normocephalic/atraumatic. EYES: Normal reaction of pupils, equal size. Conjunctiva pink, sclera white. NOSE: Clear with pink turbinates. THROAT: No erythema or exudates. NECK: No masses, no JVD, no thyroid enlargement, no adenopathy. CHEST: No chest wall deformity. Symmetrical expansion. LUNGS: Equal air entry with diminished breath sounds. CVS: Regular rate and rhythm, normal S1 and S2, no gallops, no murmurs, no rubs ABDOMEN: Soft, nontender. No hepatosplenomegaly, normal bowel sounds, no guarding or rigidity. EXTREMITIES: No clubbing, mild lower extremity and pedal edema, no cyanosis, 2+ pulses and upper and lower extremities. MUSCULOSKELETAL: Muscle strength and tone normal. Left elbow swelling and open ulcer on left elbow SPINE: No scoliosis or deformity SKIN: No rashes CENTRAL NERVOUS SYSTEM: Alert and oriented -3. No focal deficits, tone is normal in all 4 extremities. PSYCHIATRIC: Alert and oriented -3. Appropriate affect. Intact judgment and insight. - Labs CBC & Chem 7: 12/03/21 08:06 12/03/21 13:06 Labs: Abnormal Lab Results - Last 24 Hours (Table) 12/03/21 12/03/21 12/03/21 Range/Units 12:01 13:06 16:53 Chloride 95 L (98-107) mmol/L Carbon Dioxide 38 H (22-30) mmol/L BUN 21 H (9-20) mg/dL Glucose 134 H (74-99) mg/dL POC Glucose (mg/dL) 114 H 260 H (75-99) mg/dL 12/03/21 12/04/21 12/04/21 Range/Units 19:56 06:17 11:21 Chloride (98-107) mmol/L Carbon Dioxide (22-30) mmol/L BUN (9-20) mg/dL Glucose (74-99) mg/dL POC Glucose (mg/dL) 243 H 138 H 111 H (75-99) mg/dL Microbiology - Last 24 Hours (Table) 12/03/21 12:00 Gram Stain - Preliminary Elbow - Left Tissue Culture - Preliminary 12/03/21 12:00 Anaerobic Culture - Preliminary Elbow - Left 11/28/21 11:15 Blood Culture - Preliminary Blood No Growth after 120 hours 11/28/21 11:25 Blood Culture - Preliminary Blood No Growth after 120 hours Assessment and Plan Plan: Assessment: #1. Acute on chronic hypoxic respiratory failure secondary to an acute community-acquired pneumonia mainly in the left lung #2. Strep pneumonia bacteremia likely related to pneumonia, community acquired #3. Acute exacerbation of chronic obstructive pulmonary disease secondary to above. FEV1 value of 41% of predicted #4. History of pulmonary embolism, anticoagulated with Xarelto #5. Hypertension #6. History of congestive heart failure, unspecified #7. Chronic thoracic back pain #8. Benign prosthetic hyperplasia #9. Lumbar spondylosis with myelopathy #10. [id number] smoking history, in remission for last 10 years #11. Chronic hypoxic respiratory failure related to advanced COPD patient is normally on 3-4 L/m of home oxygen and maintenance dose prednisone of 10 mg #12. Left elbow wound, with the possibility of osteomyelitis, status post surgical incision and drainage on 12/03/2021 Plan: Patient is complaining of increased dyspnea and congestion We'll switch the patient back to IV steroids 40 mg every 8 hours We'll give the patient one time dose Lasix Continue Rocephin chest x-ray has been ordered Flat plate abdominal film has been ordered for abdominal discomfort We'll continue to follow I have personally seen and examined the patient, performed the documentation and the assessment and plan as written. Number of minutes spent on the visit: [10] Time with Patient: Less than 30
[2021-12-04 12:31] LABS: African American GFR (CKD) >90 (>60 ml/min/1.73 sqM); Anion Gap 6 mmol/L; Blood Urea Nitrogen 25 mg/dL (9-20); Calcium 9.4 mg/dL (8.4-10.2); Carbon Dioxide 37 mmol/L (22-30); Chloride 94 mmol/L (98-107); Glucose 124 mg/dL (74-99); Magnesium 2.2 mg/dL (1.6-2.3); Non-African American GFR(CKD) 79 (>60 ml/min/1.73 sqM); Potassium 4.2 mmol/L (3.5-5.1); Sodium 137 mmol/L (137-145)
--- NOTE | 2021-12-04 13:02 | XR ---
EXAMINATION TYPE: XR chest 1V portable, XR abdomen 2V DATE OF EXAM: 12/04/2021 COMPARISON: X-ray dated 11/28/2021 HISTORY: Shortness of breath. Abdominal pain TECHNIQUE: Single frontal view of the chest is obtained, with 3 views of the abdomen. FINDINGS: Stable suspected COPD changes and minimal fibrotic changes/infiltration the left mid to lower lung zo ne without interval progression. No sizable pleural effusion or definite pneumothorax. No gross cardi omegaly. Aortic atherosclerotic calcifications. Unchanged bony thoracic cage. No free air under the diaphragm. Nonspecific gaseous distention of the stomach. No signs of acute hig h-grade small bowel obstruction. No significant fecal loading of the colon. Degenerative changes of t he lumbar spine. Osteopenia. Arterial atherosclerotic calcifications. IMPRESSION: As above.
--- NOTE | 2021-12-04 16:01 | P.PN ---
Subjective Progress Note Date: 12/04/21 (delayed charting seen at 1045) Principal diagnosis: cough and congestion Patient is a 76-year-old male with coronary artery disease, congestive heart failure, dementia, hypertension, and dyslipidemia along with prior pulmonary embolism maintain on Xarelto who initially presented to the ER with complaints of creasing shortness of breath. In the ER he underwent an extensive evaluation was ultimately diagnosed with pneumonia with sepsis and acute on chronic hypoxic respiratory failure. Patient was subsequently admitted. He was started on Rocephin, Zithromax, and Solu-Medrol. He was seen by pulmonary. Blood cultures came back positive for strep pneumonia. Infectious disease was consulted due to bacteremia as well as left elbow wound. Orthopedics was consulted and evaluated the patient. They felt he had presumptive left olecranon osteomyelitis with a wound that probes to exposed bone. They recommended an MRI which was unable to be obtained. Antibiotics were simplified to Rocephin. Patient underwent incision and excisional debridement of the left olecranon bone with osteomyelitis and bone cultures. Case was discussed with infectious disease. Plan will be for PICC line placement and IV antibiotics. Imaging: X-ray left elbow-soft tissue wound without bony distraction no convincing radiological evidence of osteomyelitis. X-ray: Left mid and lower lung interface opacities correlate for pneumonia Patient seen and examined at bedside: He complains of congestion and shoe shortness of breath. He is also having some suprapubic pain and edema in his lower extremities. He has some pain in his arm. General: non toxic, no distress, appears at stated age Derm: warm, dry Head: atraumatic, normocephalic, symmetric Eyes: EOMI, no lid lag, anicteric sclera Mouth: no lip lesion, mucus membranes moist Cardiovascular: S1S2 reg, no murmur, positive posterior tibial pulse bilateral, Lungs: Rhonchi bilateral bases , no accessory muscle use Abdominal: soft, nontender to palpation, no guarding, no appreciable organomegaly Ext: no gross muscle atrophy, no edema, no contractures, left elbow with dressing in place Neuro: CN II-XI grossly intact, no focal neuro deficits Psych: Alert, oriented, appropriate affect Assessment/Plan: Strep pneumonia community-acquired pneumonia Acute exacerbation of COPD Acute on chronic hypoxic respiratory failure baseline 3-4 L Strep Pneumonia Bacteremia -Pulmonary recommendations appreciated-increased back to solumedrol, , bronchodilators -Back on home O2 requirements. - ID recs appreciated - Rocpehin, PICC line Left olecranon osteomyelitis -Orthopedic surgery recommendations appreciated. outpatint in 10-14 days.. - Discussed with ID await cultures, repeat blood cultures negative. PICC line ordered anticipated 4-6 weeks of IV abx. Abdominal Pain - x-ray without acute process - continue with bowel regiment History of pulmonary embolism -Xarelto to resume tonight Hyperglycemia - Likely secondary to steroids - follow BS - A1C was cancelled for unkown reason, will reorder Lactic acidosis, resolved Sepsis, resolved Chronic: Chronic Congestive Heart Failure, unknown type Chronic back pain BPH Lumbar spondylolysis with myelopathy Hypertension Dyslipidemia Coronary artery disease DVT prophylaxis: SCDs Discussed with: Patient, nursing Anticipated discharge: in 2-[address]: SNF A total of 37 minutes was spent on the care of this complex patient more than 50% of the time was spent in counseling and care coordination. Active Medications Generic Name Dose Route Start Last Admin Trade Name Freq PRN Reason Stop Dose Admin Albuterol/Ipratropium 3 ml 11/27/21 02:24 11/27/21 03:05 Ipratropium-Albuterol 3 Ml Neb INHALATION 3 ml RT-Q2H PRN Administration Shortness Of Breath Or Wheezing Albuterol/Ipratropium 3 ml 11/27/21 12:00 12/04/21 11:17 Ipratropium-Albuterol 3 Ml Neb INHALATION 3 ml RT-Q4H ABDOULAYE Administration Alprazolam 0.25 mg 11/27/21 23:41 12/03/21 20:03 Alprazolam 0.25 Mg Tab PO 0.25 mg TID PRN Administration Anxiety Amlodipine Besylate 5 mg 12/02/21 10:30 12/04/21 08:09 Amlodipine 5 Mg Tab PO 5 mg BID ABDOULAYE Administration Budesonide/Formoterol Fumarate 2 puff 11/26/21 20:00 12/04/21 07:20 Symbicort 160-4.5 Mcg Inhaler INHALATION 2 puff RT-BID ABDOULAYE Administration Cholecalciferol 125 mcg 11/25/21 09:00 12/04/21 08:09 Cholecalciferol 125 Mcg (5000 Iu) Tablet PO 125 mcg DAILY ABDOULAYE Administration Clonidine 0.2 mg 11/27/21 23:32 12/02/21 07:26 Clonidine Hcl 0.2 Mg Tab PO 0.2 mg QID PRN Administration Blood Pressure - High Gabapentin 600 mg 11/24/21 22:00 12/04/21 08:09 Gabapentin 300 Mg Cap PO 600 mg TID ABDOULAYE Administration Guaifenesin 200 mg 11/30/21 18:00 12/04/21 11:45 Guaifenesin Syrup 100mg/5ml 200 Mg/10 Ml Cup PO 200 mg Q6HR ABDOULAYE Administration Sodium Chloride 1,000 mls @ 10 mls/hr 11/25/21 07:45 12/04/21 05:53 Saline 0.9% IV Not Given .Q24H ABDOULAYE Protocol Ceftriaxone Sodium 2 gm/ 50 mls @ 100 mls/hr 11/27/21 11:00 12/04/21 08:09 Sodium Chloride IVPB 100 mls/hr Q24HR ABDOULAYE Administration Protocol Loratadine 10 mg 12/04/21 15:00 Loratadine 10 Mg Tab PO DAILY ABDOULAYE Methylprednisolone Sodium Succinate 40 mg 12/04/21 09:00 12/04/21 08:56 Methylprednisolone Sod Succi 40 Mg/Ml 1 Ml Vial IV 40 mg Q8HR ABDOULAYE Administration Metoprolol Tartrate 12.5 mg 12/02/21 10:30 12/04/21 08:09 Metoprolol Tartrate 12.5 Mg Tab PO 12.5 mg BID ABDOULAYE Administration Miscellaneous Information 1 each 11/24/21 20:15 Pneumonia Protocol Utilized 1 Each Misc PO ONCE PRN Per Protocol Oxycodone/Acetaminophen 1 each 11/25/21 07:30 12/04/21 11:45 Oxycodone-Apap 10-325mg 1 Each Tab PO 1 each TID-W/MEALS ABDOULAYE Administration Oxycodone/Acetaminophen 1 each 11/26/21 07:23 12/03/21 20:03 Oxycodone-Apap 10-325mg 1 Each Tab PO 1 each Q6HR PRN Administration Pain Polyethylene Glycol 17 gm 12/03/21 09:00 12/04/21 08:10 Polyethylene Glycol 3350 17 Gm Powd.Pack PO 17 gm DAILY ABDOULAYE Administration Rivaroxaban 2.5 mg 12/04/21 11:15 12/04/21 11:24 Rivaroxaban 2.5 Mg Tablet PO Not Given BID [facility] Protocol Thiamine HCl 100 mg 11/26/21 09:00 12/04/21 08:09 Thiamine 100 Mg Tab PO 100 mg DAILY ABDOULAYE Administration Objective - Vital Signs Vital signs: Vital Signs Temp 98.3 F 12/04/21 08:00 Pulse 108 H 12/04/21 11:27 Resp 17 12/04/21 08:00 BP 131/68 12/04/21 08:00 Pulse Ox 92 L 12/04/21 08:00 Intake & Output 12/03/21 12/04/21 12/04/21 18:59 06:59 18:59 Intake Total 1090 240 Output Total 1984 100 900 Balance -895 140 -900 Weight 68.039 kg Intake: IV 350 Oral 740 240 Output: Urine 1984 100 900 Estimated Blood Loss 0 Other: Voiding Method Urinal Urinal - Labs CBC & Chem 7: 12/04/21 11:12 12/04/21 11:12 Labs: Abnormal Lab Results - Last 24 Hours (Table) 12/03/21 12/03/21 12/04/21 Range/Units 16:53 19:56 06:17 WBC (3.8-10.6) k/uL MCV (80.0-100.0) fL MCHC (31.0-37.0) g/dL Plt Count (150-450) k/uL Chloride (98-107) mmol/L Carbon Dioxide (22-30) mmol/L BUN (9-20) mg/dL Glucose (74-99) mg/dL POC Glucose (mg/dL) 260 H 243 H 138 H (75-99) mg/dL 12/04/21 12/04/21 12/04/21 Range/Units 11:12 11:12 11:21 WBC 29.1 H (3.8-10.6) k/uL MCV 101.6 H (80.0-100.0) fL MCHC 30.8 L (31.0-37.0) g/dL Plt Count 498 H (150-450) k/uL Chloride 94 L (98-107) mmol/L Carbon Dioxide 37 H (22-30) mmol/L BUN 25 H (9-20) mg/dL Glucose 124 H (74-99) mg/dL POC Glucose (mg/dL) 111 H (75-99) mg/dL Microbiology - Last 24 Hours (Table) 11/28/21 11:15 Blood Culture - Final Blood No Growth after 144 hours 11/28/21 11:25 Blood Culture - Final Blood No Growth after 144 hours 12/03/21 12:00 Gram Stain - Preliminary Elbow - Left Tissue Culture - Preliminary 12/03/21 12:00 Anaerobic Culture - Preliminary Elbow - Left
[2021-12-04 16:23] LABS: Glucose,Whole Blood 194 mg/dL (75-99)
[2021-12-04] MEDS: LORATADINE 10 MG TAB PO SCH (17:00)
[2021-12-04 20:17] LABS: Glucose,Whole Blood 166 mg/dL (75-99)
--- NOTE | 2021-12-04 20:59 | P.PN ---
Subjective Progress Note Date: 12/03/21 Principal diagnosis: Strep pneumo bacteremia pneumonia and a question of left elbow bursitis Patient is a 76-year-old male presented to the hospital with shortness of breath and cough with evidence of pneumonia and did have evidence of strep pneumo bacteremia, sputum has been cannula and the blood culture has been negative patient also having a problem with the left elbow which seemed to have been treated in the outpatient setting and culture were done to which I do not have any excess at this point , x-rays of the elbow did not show any bony changes. 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 On today's evaluation that is 12/03/2021, the patient is afebrile, the patient is breathing comfortably on nasal cannula oxygen, patient denies having any chest pain, the patient did have a cough but not bringing up any sputum, the patient pain to the left elbow is currently controlled Objective - Vital Signs Vital signs: Vital Signs Temp 98.7 F 12/03/21 12:00 Pulse 87 12/03/21 12:00 Resp 16 12/03/21 12:00 BP 144/64 12/03/21 12:00 Pulse Ox 89 L 12/03/21 12:00 Intake & Output 12/02/21 12/03/21 12/03/21 18:59 06:59 18:59 Intake Total 418 240 550 Output Total 1290 1685 Balance -872 240 -1135 Weight 68.039 kg Intake: IV 350 Oral 418 240 200 Output: Urine 1290 1685 Estimated Blood Loss 0 Other: Voiding Method Urinal Urinal Urinal - Exam GENERAL DESCRIPTION: An elderly male lying in bed in no distress RESPIRATORY SYSTEM: Unlabored breathing , decreased breath sounds at bases HEART: S1 S2 regular rate and rhythm , ABDOMEN: Soft , no tenderness EXTREMITIES: Left elbow is currently dressed no drainage on the dressing - Labs CBC & Chem 7: 12/04/21 11:12 12/04/21 11:12 Labs: Abnormal Lab Results - Last 24 Hours (Table) 12/02/21 12/02/21 12/03/21 Range/Units 16:31 20:13 08:06 WBC 21.1 H (3.8-10.6) k/uL RBC 4.16 L (4.30-5.90) m/uL MCV 103.1 H (80.0-100.0) fL POC Glucose (mg/dL) 233 H 178 H (75-99) mg/dL 12/03/21 Range/Units 12:01 WBC (3.8-10.6) k/uL RBC (4.30-5.90) m/uL MCV (80.0-100.0) fL POC Glucose (mg/dL) 114 H (75-99) mg/dL Microbiology - Last 24 Hours (Table) 11/28/21 11:15 Blood Culture - Preliminary Blood No Growth after 96 hours 11/28/21 11:25 Blood Culture - Preliminary Blood No Growth after 96 hours 11/26/21 07:46 Blood Culture - Final Blood No Growth after 144 hours Assessment and Plan (1) Pneumonia Current Visit: Yes Status: Acute Code(s): J18.9 - PNEUMONIA, UNSPECIFIED ORGANISM SNOMED Code(s): 343072831 Plan: 1patient with a strep pneumo bacteremia source likely pneumonia in this patient presented to hospital with increasing shortness of breath and cough and evidence of pulmonary infiltrate and elevated procalcitonin. 2patient with a left elbow wound status post I&D concerning for Osteomyelitis cultures are currently pending patient is covered with Rocephin antibiotic associated further on the basis of culture Time with Patient: Less than 30
[2021-12-04] MEDS ORDERED: FLUCONAZOLE 100 MG TAB PO ONE (21:00)
--- NOTE | 2021-12-04 21:00 | P.PN ---
Subjective Progress Note Date: 12/04/21 Principal diagnosis: Strep pneumo bacteremia pneumonia and a question of left elbow bursitis Patient is a 76-year-old male presented to the hospital with shortness of breath and cough with evidence of pneumonia and did have evidence of strep pneumo bacteremia, sputum has been cannula and the blood culture has been negative patient also having a problem with the left elbow which seemed to have been treated in the outpatient setting and culture were done to which I do not have any excess at this point , x-rays of the elbow did not show any bony changes. 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 On today's evaluation that is 12/04/2021, the patient remains to be afebrile, the patient is breathing comfortably on nasal cannula oxygen, patient denies having any chest pain and cough or sputum production did have the pain to the left elbow but no worsening Objective - Vital Signs Vital signs: Vital Signs Temp 98.3 F 12/04/21 08:00 Pulse 108 H 12/04/21 11:27 Resp 17 12/04/21 08:00 BP 131/68 12/04/21 08:00 Pulse Ox 92 L 12/04/21 08:00 Intake & Output 12/03/21 12/04/21 12/04/21 18:59 06:59 18:59 Intake Total 1090 240 Output Total 1984 100 900 Balance -895 140 -900 Weight 68.039 kg Intake: IV 350 Oral 740 240 Output: Urine 1984 100 900 Estimated Blood Loss 0 Other: Voiding Method Urinal Urinal - Exam GENERAL DESCRIPTION: An elderly male lying in bed in no distress RESPIRATORY SYSTEM: Unlabored breathing , decreased breath sounds at bases HEART: S1 S2 regular rate and rhythm , ABDOMEN: Soft , no tenderness EXTREMITIES: Left elbow is currently dressed no drainage on the dressing - Labs CBC & Chem 7: 12/04/21 11:12 12/04/21 11:12 Labs: Abnormal Lab Results - Last 24 Hours (Table) 12/03/21 12/03/21 12/03/21 Range/Units 13:06 16:53 19:56 WBC (3.8-10.6) k/uL MCV (80.0-100.0) fL MCHC (31.0-37.0) g/dL Plt Count (150-450) k/uL Chloride 95 L (98-107) mmol/L Carbon Dioxide 38 H (22-30) mmol/L BUN 21 H (9-20) mg/dL Glucose 134 H (74-99) mg/dL POC Glucose (mg/dL) 260 H 243 H (75-99) mg/dL 12/04/21 12/04/21 12/04/21 Range/Units 06:17 11:12 11:12 WBC 29.1 H (3.8-10.6) k/uL MCV 101.6 H (80.0-100.0) fL MCHC 30.8 L (31.0-37.0) g/dL Plt Count 498 H (150-450) k/uL Chloride 94 L (98-107) mmol/L Carbon Dioxide 37 H (22-30) mmol/L BUN 25 H (9-20) mg/dL Glucose 124 H (74-99) mg/dL POC Glucose (mg/dL) 138 H (75-99) mg/dL 12/04/21 Range/Units 11:21 WBC (3.8-10.6) k/uL MCV (80.0-100.0) fL MCHC (31.0-37.0) g/dL Plt Count (150-450) k/uL Chloride (98-107) mmol/L Carbon Dioxide (22-30) mmol/L BUN (9-20) mg/dL Glucose (74-99) mg/dL POC Glucose (mg/dL) 111 H (75-99) mg/dL Microbiology - Last 24 Hours (Table) 12/03/21 12:00 Gram Stain - Preliminary Elbow - Left Tissue Culture - Preliminary 12/03/21 12:00 Anaerobic Culture - Preliminary Elbow - Left 11/28/21 11:15 Blood Culture - Preliminary Blood No Growth after 120 hours 11/28/21 11:25 Blood Culture - Preliminary Blood No Growth after 120 hours Assessment and Plan (1) Pneumonia Current Visit: Yes Status: Acute Code(s): J18.9 - PNEUMONIA, UNSPECIFIED ORGANISM SNOMED Code(s): 738761333 Plan: 1patient with a strep pneumo bacteremia source likely pneumonia in this patient presented to hospital with increasing shortness of breath and cough and evidence of pulmonary infiltrate and elevated procalcitonin. 2patient with a left elbow wound status post I&D concerning for Osteomyelitis cultures are currently pending patient is covered with Rocephin antibiotic associated further on the basis of culture 3-worsening leukocytosis possible oropharyngeal candidiasis/thrush will add Diflucan and see response Time with Patient: Less than 30
[2021-12-05] MEDS: IPRATROPIUM-ALBUTEROL 3 ML NEB INHALATION SCH ×6 (03:33→23:22)
[2021-12-05 05:59] LABS: Glucose,Whole Blood 185 mg/dL (75-99)
[2021-12-05] MEDS: SODIUM CHLORIDE 0.9% 1,000 ML IV SCH (06:18)
[2021-12-05] MEDS: guaiFENesin SYRUP 100MG/5ML 200 MG/10 ML CUP PO SCH ×4 (06:18→23:04)
[2021-12-05] MEDS: oxyCODONE-APAP 10-325MG 1 EACH TAB PO SCH ×3 (06:18→16:44)
[2021-12-05] MEDS: RIVAROXABAN 2.5 MG TABLET PO SCH ×2 (07:44→19:59)
[2021-12-05] MEDS: METOPROLOL TARTRATE 12.5 MG TAB PO SCH ×2 (07:44→19:59)
[2021-12-05] MEDS: CHOLECALCIFEROL 125 MCG (5000 IU) TABLET PO SCH (07:44)
[2021-12-05] MEDS: polyethylene glycoL 3350 17 GM POWD.PACK PO SCH (07:44)
[2021-12-05] MEDS: methylPREDNISolone SOD SUCCI 40 MG/ML 1 ML VIAL IV SCH ×3 (07:44→23:04)
[2021-12-05] MEDS: LORATADINE 10 MG TAB PO SCH (07:45)
[2021-12-05] MEDS: GABAPENTIN 300 MG CAP PO SCH ×3 (07:45→19:59)
[2021-12-05] MEDS: FLUCONAZOLE 100 MG TAB PO SCH (07:45)
[2021-12-05] MEDS: amLODIPine 5 MG TAB PO SCH ×2 (07:45→19:59)
[2021-12-05] MEDS: THIAMINE 100 MG TAB PO SCH (07:45)
[2021-12-05] MEDS ORDERED: LIDOCAINE 1% INJ 10MG/ML (20 ML MDV) ONE (08:26)
[2021-12-05] MEDS ORDERED: LIDOCAINE 1% INJ 10MG/ML (20 ML MDV) SQ ONE (08:48)
[2021-12-05] MEDS: SYMBICORT 160-4.5 MCG INHALER INHALATION SCH ×2 (09:01→19:24)
--- NOTE | 2021-12-05 09:18 | IR ---
PICC LINE PLACEMENT: HISTORY: Infection requiring long-term antibiotic therapy PROCEDURE: Ultrasound and fluoroscopic guidance of PICC line placement. COMPLICATIONS: None ANESTHESIA: 1. 1% Lidocaine locally. FINDINGS/TECHNIQUE: The procedure was explained to the patient. The risks, complications, benefits and alternatives were discussed and any questions were answered. Informed consent was obtained. The patient was placed supine on the fluoroscopic table and prepped and draped in the usual sterile fash ion. Utilizing a 21 gauge needle and sonographic and fluoroscopic guidance, access in the right bas ilic vein was achieved and there is placement of a 0.018 guidewire. The vein is patent. A 4-F sheat h was placed over the guidewire. The guidewire and dilator were removed and a 4-F. PICC line was mika maninder through the sheath with the tip at the level of the SVC. The sheath was removed, the catheter wa s flushed and sutured into position. The patient was stable throughout the procedure and remained st able upon discharge from the Department of Radiology. The vein puncture was patent under ultrasound. A river scale image was obtained to document patency of the vein punctured. All elements of the maximal barrier technique were utilized. FLUOROSCOPY TIME: 0.3 minutes and one images submitted IMPRESSION: Successful PICC line placement under ultrasound and fluoroscopic guidance.
[2021-12-05 09:52] LABS: HCT 42.8 % (39.0-53.0); HGB 13.3 gm/dL (13.0-17.5); MCH 31.7 pg (25.0-35.0); MCHC 31.1 g/dL (31.0-37.0); Macrocytosis Slight; Mean Platelet Volume 7.2; Platelet Count 501 k/uL (150-450); RDW 13.3 % (11.5-15.5); WBC 24.5 k/uL (3.8-10.6)
[2021-12-05 10:03] LABS: African American GFR (CKD) >90 (>60 ml/min/1.73 sqM); Anion Gap 9 mmol/L; Blood Urea Nitrogen 24 mg/dL (9-20); Calcium 9.2 mg/dL (8.4-10.2); Carbon Dioxide 33 mmol/L (22-30); Chloride 93 mmol/L (98-107); Glucose 207 mg/dL (74-99); Non-African American GFR(CKD) 82 (>60 ml/min/1.73 sqM); Potassium 4.4 mmol/L (3.5-5.1); Sodium 135 mmol/L (137-145)
--- NOTE | 2021-12-05 10:11 | P.PN ---
Subjective Progress Note Date: 12/05/21 Principal diagnosis: Left olecranon osteomyelitis Patient was seen at bedside this morning resting comfortably lying in the semirecumbent position with Zechariah bandage present on left elbow. Patient says he is having some pain in the left elbow, however, he says it is a little bit b rustam than it was yesterday. Patient says he has been able to move his left elbow okay since surgery. Patient denies increasing chest pain, nausea, vomiting, change in vision, loss of bowel/bladder control. Objective - Vital Signs Vital signs: Vital Signs Temp 98.2 F 12/05/21 08:00 Pulse 90 12/05/21 08:00 Resp 20 12/05/21 08:00 BP 156/65 12/05/21 08:00 Pulse Ox 95 12/05/21 08:00 Intake & Output 12/04/21 12/05/21 12/05/21 18:59 06:59 18:59 Output Total 1900 700 Balance -1900 -700 Output: Urine 1900 700 Other: Voiding Method Urinal - Exam Left upper extremity: Inspection: Zechariah bandage present left elbow. Zechariah bandage from surgery and rest of operative dressing was taken down. Incision was clean, dry, intact. Negative for any fluctuance/purulence. Sutures are in good place and well aligned. New dressing was placed over left elbow using Adaptic, 4 x 4's, Kerlix, Zechariah bandage. Sensation: Sensation is equal, symmetric, bilaterally intact throughout the upper extremities. Palpation: Moderate tenderness to palpation near the surgical incision on the left elbow. Nontender to palpation throughout the rest of exam Range of motion: Patient is able to fully extend and flex left elbow with known to very minimal pain in the left elbow. Patient is also able pronate and supinate left arm without pain. Patient has full flexion-extension left wrist. Shoe Cobbler strength is 4+/5 bilaterally. Patient has full range of motion in left shoulder abduction and forward elevation. Motor: 4/5 resisted left elbow flexion/extension, left wrist flexion/extension in left shoulder resisted abduction and flexion. Neurovascular status: Refill under 3 seconds in digits of upper extremities. Radial pulses intact, 2+ bilaterally. Special tests: Negative Homans bilaterally - Labs CBC & Chem 7: 12/05/21 09:27 12/04/21 11:12 Labs: Abnormal Lab Results - Last 24 Hours (Table) 12/04/21 12/04/21 12/04/21 Range/Units 11:12 11:12 11:21 WBC 29.1 H (3.8-10.6) k/uL MCV 101.6 H (80.0-100.0) fL MCHC 30.8 L (31.0-37.0) g/dL Plt Count 498 H (150-450) k/uL Chloride 94 L (98-107) mmol/L Carbon Dioxide 37 H (22-30) mmol/L BUN 25 H (9-20) mg/dL Glucose 124 H (74-99) mg/dL POC Glucose (mg/dL) 111 H (75-99) mg/dL 12/04/21 12/04/21 12/05/21 Range/Units 16:21 20:15 05:56 WBC (3.8-10.6) k/uL MCV (80.0-100.0) fL MCHC (31.0-37.0) g/dL Plt Count (150-450) k/uL Chloride (98-107) mmol/L Carbon Dioxide (22-30) mmol/L BUN (9-20) mg/dL Glucose (74-99) mg/dL POC Glucose (mg/dL) 194 H 166 H 185 H (75-99) mg/dL Microbiology - Last 24 Hours (Table) 12/03/21 12:00 Gram Stain - Preliminary Elbow - Left Tissue Culture - Preliminary 11/28/21 11:15 Blood Culture - Final Blood No Growth after 144 hours 11/28/21 11:25 Blood Culture - Final Blood No Growth after 144 hours Assessment and Plan Assessment: 1. left olecranon osteomyelitis post-op day #2 s/p Incision and excisional debridement of left olecranon bone osteomyelitis with bone cultures Plan: 1. Left olecranon osteomyelitis with 5x5mm open wound with exposed bone - surgery performed Wednesday12/03/2021 - Incision and excisional debridement of left olecranon bone osteomyelitis with bone cultures. Patient stable at bedside this morning. Dressing was taken down and changed. Incision is clean, dry, intact. Sutures well aligned. New adaptic, 4x4's, Kerlix, and zechariah wraps covered over incision and left elbow. patient is to keep incision, clean, dry. Keep incision padded/covered. Can change dressing every couple days. f/u in office in 2 weeks. Patient is stable from orthopedic standpoint for discharge home. Orthopedics is signing off at this time. Please do not hesitate to contact us for any further questions. 2. Multiple medical comorbidities 3. Appreciate medical management; appreciate pulmonary management 4. Pain management - gabapentin; oxycodone 5. DVT prophylaxis - Xarelto 6. PT/OT - WBAT Time with Patient: Less than 30
[2021-12-05 10:39] LABS: C Reactive Protein 1.3 mg/dL (<1.0)
--- NOTE | 2021-12-05 11:00 | P.PN ---
Subjective Progress Note Date: 12/05/21 This a pleasant 76-year-old male patient with a known history of coronary artery disease congestive heart failure, T CVA/TIA, dementia, hypertension, hyperlipidemia, pulmonary embolism and maintained on Xarelto., He also has a history of chronic obstructive pulmonary disease with FEV1 value of 49% of pred icted. He had a previous heavy smoking tobacco history but quit back in 2016. He presented here to the emergency room yesterday with a three-day history of increasing shortness of breath. He was also found to be in a tachycardic. He received Lopressor in the emergency department. Chest x-ray revealed scattered airspace opacities within the left mid and lower lung hernandes. Background COPD changes. White count 18.6. Hemoglobin 13.4. Sodium 139. Potassium 4.7. BUN 22. Creatinine 1.27. Glucose 194. Lactic acid 3.0. Troponin negative times one. ProBNP 183. Coronavirus PCR not detected. Legioinella antigen negative. Blood cultures reveal no growth. He's been initiated on ceftriaxone and azithromycin along with bronchodilators and IV solu Medrol. Anticoagulated with Xarelto. On 11/26/2021 patient seen in follow-up on selective care unit, he states he is still coughing, feels congested, at times she is able to bring up some whitish colored sputum. Sputum specimen has been sent and results are pending, patient remains on Zosyn for antibiotic coverage, his been afebrile overnight, pro- calcitonin is significantly elevated at 18.4,multiple blood cultures were positive for strep pneumonia. Repeat blood culture has been ordered and pending at this time. Lung sounds reveal diffuse wheezes, rhonchi. Patient has an over [id number] smoking history, in remission for last 10 years, patient has advanced COPD he is only on home oxygen at 3-4 L and maintenance dose prednisone 10 mg daily. On IV Solu-Medrol 40 mg every 12 hours, DuoNeb 4 times a day. Currently amiodarone drip has been discontinued, patient is currently in sinus mechanism with a controlled rate. He is on Xarelto 2.5 mg BID. On 11/27/2021 patient seen in follow-up on selective care unit. Patient is quiet bronchospastic today, has a congested cough, at times he is able to bring up some whitish colored phlegm, he remains on Zosyn, sputum culture was sent, preliminary Gram stain shows few PMNs, many gram-positive cocci, few gram- positive bacilli. Follow-up blood culture from 11/26/2021 has shown no growth thus far. Afebrile. Vital signs have been stable, he remains on 3 L of oxygen pulse ox is 96%, yesterday we increased his IV steroids to 60 g every 6 hours, he is getting breathing treatments on an as-needed basis which we will switch to scheduled bases. On 11/28/2021 patient seen in follow-up on selective care unit. Patient is on 4 L of oxygen pulse ox is 92%, is hypertensive, he is a bit anxious at times, still has a congested cough, he is bringing up some yellowish colored phlegm, his been afebrile, he remains on antibiotics, steroids switched him to IV Rocephin 2 g every 24 hours, today we'll contact the IV steroids and will continue on breathing treatments. Patient's daughters at the bedside and she states patient has been having pain swelling and drainage out of a wound on his left elbow which had been there for the last 3 weeks, and had been treated with oral antibiotics and steroid injection at the PCPs office. The left elbow is wrapped, there is some serous drainage, after removing the wraps there is open ulcer, does not appear to be infected, but will be cultured nevertheless. Patient does have swelling surrounding the area and upper forearm and lower arm as well. On 12/01/2021 patient seen in follow-up on selective care unit, he is resting comfortably in bed, seems to be breathing easier. Doesn't appear to be in any acute distress. Patient currently remains on Rocephin 2 g every 24 hours, nebulized bronchodilators, his IV steroids have been transitioned to oral prednisone. He is less short of breath, left bronchospastic. On 3 L of oxygen pulse ox of 94%. His follow-up blood cultures from 11/26/2021 and 11/28/2021 have shown no growth thus far, wound culture from his left elbow had shown no growth, patient was evaluated by orthopedic surgery and the plan is for I&D procedure likely on 12/03/2021 pending clearance from cardiology and pulmonary. On 12/02/2021 patient seen in follow-up on selective care unit, he is breathing comfortably, he is currently on 3 L of oxygen pulse ox is 94%, still has a congested cough, at times he is told to bring up some creamy colored sputum, and he states he did see some red in it but a small amount. He continues on IV Rocephin 2 g every 24 hours, his vital signs have been stable. Lung sounds are diminished, no wheezing or rhonchi noted on today's exam, continues on nebulized bronchodilators. Hemodynamically she is stable. he is in sinus mechanism. No new labs today. IV fluids of 0.9 normal saline at a rate of 20 ML per hour His blood cultures from 11/26/2021 and 11/28/2021 have shown no growth, left elbow wound culture was negative. Patient is getting local wound treatments. Orthopedic surgery is following and incision and drainage of the left elbow wound was recommended. From pulmonary perspective patient is stable for I&D of the left elbow tomorrow on 12/03/2021. On 12/03/2021 patient seen in follow-up on selective care unit, he sitting up in the chair, does not appear to be in any acute distress, he has mild wheezing on today's exam, mild congestive cough, he is able to produce some whaley colored phlegm from time to time. Remains on Rocephin 2 g every 24 hours, vital signs have been stable, he remains on 3 L of oxygen, pulse ox is 91-96%. No acute e vents overnight. Follow up blood cultures have shown no growth at 96 hour sushila. Left elbow culture has shown no growth. Patient is scheduled for I&D of the left elbow today. 12/04/2021 patient is seen in follow-up on selective care unit, he is more dyspneic bronchospastic on today's exam, increased chest congestion, at times he is able to bring up some thick yellow phlegm. In addition she is complaining of pain in his abdomen, abdomen is soft, but distended. Denies any nausea or vomiting, no diarrhea. Yesterday patient underwent incision and drainage of the left elbow, please refer to the operative report. History of gastric liters of oxygen pulse ox is 92%, he is afebrile, vital signs have been stable, lung sounds are diminished, with diffuse rhonchi, audible congestion. And in addition patient is complaining of increased swelling in his bilateral lower extremities. He has been on oral prednisone, breathing treatments. He remains on IV Rocephin. On 12/05/2021 patient seen in follow-up on selective care unit. He is still quite congested, his bronchospastic, although breathing a bit easier compared to yesterday. He received a dose of IV Lasix yesterday, he has diabetes, lower extremity edema is improving. He is able to bring up some yellow colored phlegm. He is using incentive spirometer but needs encouragement, he is achieving 1750 ML on the today. Remains on antibiotics for strep pneumonia bacteremia, ID service is following. He is status post I&D of the left elbow. He is currently on IV Solu-Medrol 41 g every 8 hours, he is on DuoNeb, and Symbicort. Yesterday's chest x-ray is showing stable suspected COPD, minimal fibrotic changes to the left mid and lower lung zone without significant interval progression. No pleural effusion or pneumothorax. Flat plate of the abdomen showed no free air under the diaphragm, no signs of acute high-grade small bowel obstruction, no significant fecal loading. Wound cultures from the left elbow I&D have shown no organisms thus far, follow up blood cultures are negative, sputum culture has shown Alexandra albicans. Objective - Vital Signs Vital signs: Vital Signs Temp 98.2 F 12/05/21 08:00 Pulse 90 12/05/21 08:00 Resp 20 12/05/21 08:00 BP 156/65 12/05/21 08:00 Pulse Ox 95 12/05/21 08:00 Intake & Output 12/04/21 12/05/21 12/05/21 18:59 06:59 18:59 Intake Total 120 Output Total 1900 700 300 Balance -1900 -700 -180 Intake: Oral 120 Output: Urine 1900 700 300 Other: Voiding Method Urinal - Exam GENERAL EXAM: Alert, pleasant, 76-year-old white male, on 3 L of oxygen pulse ox is 95%, comfortable in no apparent distress. HEAD: Normocephalic/atraumatic. EYES: Normal reaction of pupils, equal size. Conjunctiva pink, sclera white. NOSE: Clear with pink turbinates. THROAT: No erythema or exudates. NECK: No masses, no JVD, no thyroid enlargement, no adenopathy. CHEST: No chest wall deformity. Symmetrical expansion. LUNGS: Equal air entry with diffuse rhonchi and wheezing CVS: Regular rate and rhythm, normal S1 and S2, no gallops, no murmurs, no rubs ABDOMEN: Soft, nontender. No hepatosplenomegaly, normal bowel sounds, no guarding or rigidity. EXTREMITIES: No clubbing, mild lower extremity and pedal edema, no cyanosis, 2+ pulses and upper and lower extremities. MUSCULOSKELETAL: Muscle strength and tone normal. Left elbow swelling and open ulcer on left elbow SPINE: No scoliosis or deformity SKIN: No rashes CENTRAL NERVOUS SYSTEM: Alert and oriented -3. No focal deficits, tone is normal in all 4 extremities. PSYCHIATRIC: Alert and oriented -3. Appropriate affect. Intact judgment and insight. - Labs CBC & Chem 7: 12/05/21 09:27 12/05/21 09:27 Labs: Abnormal Lab Results - Last 24 Hours (Table) 12/04/21 12/04/21 12/04/21 Range/Units 11:12 11:12 11:21 WBC 29.1 H (3.8-10.6) k/uL RBC (4.30-5.90) m/uL MCV 101.6 H (80.0-100.0) fL MCHC 30.8 L (31.0-37.0) g/dL Plt Count 498 H (150-450) k/uL Sodium (137-145) mmol/L Chloride 94 L (98-107) mmol/L Carbon Dioxide 37 H (22-30) mmol/L BUN 25 H (9-20) mg/dL Glucose 124 H (74-99) mg/dL POC Glucose (mg/dL) 111 H (75-99) mg/dL C-Reactive Protein (<1.0) mg/dL 12/04/21 12/04/21 12/05/21 Range/Units 16:21 20:15 05:56 WBC (3.8-10.6) k/uL RBC (4.30-5.90) m/uL MCV (80.0-100.0) fL MCHC (31.0-37.0) g/dL Plt Count (150-450) k/uL Sodium (137-145) mmol/L Chloride (98-107) mmol/L Carbon Dioxide (22-30) mmol/L BUN (9-20) mg/dL Glucose (74-99) mg/dL POC Glucose (mg/dL) 194 H 166 H 185 H (75-99) mg/dL C-Reactive Protein (<1.0) mg/dL 12/05/21 12/05/21 Range/Units 09:27 09:27 WBC 24.5 H (3.8-10.6) k/uL RBC 4.20 L (4.30-5.90) m/uL MCV 102.0 H (80.0-100.0) fL MCHC (31.0-37.0) g/dL Plt Count 501 H (150-450) k/uL Sodium 135 L (137-145) mmol/L Chloride 93 L (98-107) mmol/L Carbon Dioxide 33 H (22-30) mmol/L BUN 24 H (9-20) mg/dL Glucose 207 H (74-99) mg/dL POC Glucose (mg/dL) (75-99) mg/dL C-Reactive Protein 1.3 H (<1.0) mg/dL Microbiology - Last 24 Hours (Table) 12/03/21 12:00 Gram Stain - Preliminary Elbow - Left Tissue Culture - Preliminary 11/28/21 11:15 Blood Culture - Final Blood No Growth after 144 hours 11/28/21 11:25 Blood Culture - Final Blood No Growth after 144 hours Assessment and Plan Plan: Assessment: #1. Acute on chronic hypoxic respiratory failure secondary to an acute community-acquired pneumonia mainly in the left lung #2. Strep pneumonia bacteremia likely related to pneumonia, community acquired #3. Acute exacerbation of chronic obstructive pulmonary disease secondary to above. FEV1 value of 41% of predicted #4. History of pulmonary embolism, anticoagulated with Xarelto #5. Hypertension #6. History of congestive heart failure, unspecified #7. Chronic thoracic back pain #8. Benign prosthetic hyperplasia #9. Lumbar spondylosis with myelopathy #10. [id number] smoking history, in remission for last 10 years #11. Chronic hypoxic respiratory failure related to advanced COPD patient is normally on 3-4 L/m of home oxygen and maintenance dose prednisone of 10 mg #12. Left elbow wound, with the possibility of osteomyelitis, status post surgical incision and drainage on 12/03/2021 Plan: Continue current medical treatment Continue breathing treatments and steroids Patient's getting a PICC line inserted today Continue antibiotic as per ID service recommendations Possible discharge to penitentiary facility today or possibly tomorrow if cleared by medicine I have personally seen and examined the patient, performed the documentation and the assessment and plan as written. Number of minutes spent on the visit: [10] Time with Patient: Less than 30
[2021-12-05 11:28] LABS: Glucose,Whole Blood 174 mg/dL (75-99)
[2021-12-05 11:42] LABS: Erythrocyte Sedimentation Rate 17 mm/hr (0-15)
[2021-12-05] MEDS: IOPAMIDOL CONTRAST (ORAL USE) VIAL PO PRN ×2 (12:58→14:27)
--- NOTE | 2021-12-05 15:12 | CT ---
EXAMINATION TYPE: CT abdomen pelvis wo con DATE OF EXAM: 12/05/2021 COMPARISON: None HISTORY: Abdominal pain. CT DLP: 690.4 mGycm Automated exposure control for dose reduction was used. TECHNIQUE: Helical acquisition of images was performed from the lung bases through the pelvis. FINDINGS: There is mild focal area of honeycombing in the left lung base but no acute airspace consolidation or mass or pleural effusion. The gallbladder is normal without gallstones, wall thickening, pericholecystic fluid or distention. T here is no biliary ductal dilatation. There is no organomegaly involving the liver, pancreas, spleen or adrenal glands. There are no renal or ureteral calcifications no hydronephrosis. There is diffuse calcification of th e abdominal aorta but no evidence of aneurysm. There is no retroperitoneal adenopathy or hemorrhage. The bowel loops are normal in caliber and there is no evidence of obstruction. There is no bowel wall thickening or mesenteric inflammation. There is no free intraperitoneal air or fluid. There is no pelvic mass, free fluid, abscess or adenopathy. There is mild prosthetic calcifications b ut no prostatic hypertrophy There is marked degenerative disc disease in the lumbar spine and mild degenerative change of the hip s bilaterally. There is no focal lytic or blastic osseous abnormality. IMPRESSION: 1. Mild focal chronic changes in the left lung base. 2. No acute changes within the abdomen or pelvis. 3. No renal calcifications or hydronephrosis. 4. Marked degenerative disc disease lumbar spine and mild osteoarthritic change of the hips bilateral ly.
--- NOTE | 2021-12-05 16:07 | P.PN ---
Subjective Progress Note Date: 12/05/21 Principal diagnosis: Strep pneumo bacteremia pneumonia and a question of left elbow bursitis Patient is a 76-year-old male presented to the hospital with shortness of breath and cough with evidence of pneumonia and did have evidence of strep pneumo bacteremia, sputum has been cannula and the blood culture has been negative patient also having a problem with the left elbow which seemed to have been treated in the outpatient setting and culture were done to which I do not have any excess at this point , x-rays of the elbow did not show any bony changes. 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 On today's evaluation that is 12/05/2021, the patient is afebrile, the patient is breathing comfortably on nasal cannula oxygen, patient denies having any chest pain no worsening cough or sputum production, pain to the left elbow is currently controlled seemed to be slightly unhappy for not able to go home today Objective - Vital Signs Vital signs: Vital Signs Temp 98.4 F 12/05/21 12:00 Pulse 80 12/05/21 11:24 Resp 16 12/05/21 12:00 BP 163/79 12/05/21 12:00 Pulse Ox 94 L 12/05/21 12:00 Intake & Output 12/04/21 12/05/21 12/05/21 18:59 06:59 18:59 Intake Total 120 Output Total 1900 700 300 Balance -1900 -700 -180 Intake: Oral 120 Output: Urine 1900 700 300 Other: Voiding Method Urinal - Exam GENERAL DESCRIPTION: An elderly male lying in bed in no distress RESPIRATORY SYSTEM: Unlabored breathing , decreased breath sounds at bases HEART: S1 S2 regular rate and rhythm , ABDOMEN: Soft , no tenderness EXTREMITIES: Left elbow is currently dressed no drainage on the dressing - Labs CBC & Chem 7: 12/05/21 09:27 12/05/21 09:27 Labs: Abnormal Lab Results - Last 24 Hours (Table) 12/04/21 12/04/21 12/05/21 Range/Units 16:21 20:15 05:56 WBC (3.8-10.6) k/uL RBC (4.30-5.90) m/uL MCV (80.0-100.0) fL Plt Count (150-450) k/uL ESR (0-15) mm/hr Sodium (137-145) mmol/L Chloride (98-107) mmol/L Carbon Dioxide (22-30) mmol/L BUN (9-20) mg/dL Glucose (74-99) mg/dL POC Glucose (mg/dL) 194 H 166 H 185 H (75-99) mg/dL Hemoglobin A1c (0.0-6.0) % C-Reactive Protein (<1.0) mg/dL 12/05/21 12/05/21 12/05/21 Range/Units 09:27 09:27 09:27 WBC 24.5 H (3.8-10.6) k/uL RBC 4.20 L (4.30-5.90) m/uL MCV 102.0 H (80.0-100.0) fL Plt Count 501 H (150-450) k/uL ESR 17 H (0-15) mm/hr Sodium 135 L (137-145) mmol/L Chloride 93 L (98-107) mmol/L Carbon Dioxide 33 H (22-30) mmol/L BUN 24 H (9-20) mg/dL Glucose 207 H (74-99) mg/dL POC Glucose (mg/dL) (75-99) mg/dL Hemoglobin A1c 6.4 H (0.0-6.0) % C-Reactive Protein 1.3 H (<1.0) mg/dL 12/05/21 Range/Units 11:26 WBC (3.8-10.6) k/uL RBC (4.30-5.90) m/uL MCV (80.0-100.0) fL Plt Count (150-450) k/uL ESR (0-15) mm/hr Sodium (137-145) mmol/L Chloride (98-107) mmol/L Carbon Dioxide (22-30) mmol/L BUN (9-20) mg/dL Glucose (74-99) mg/dL POC Glucose (mg/dL) 174 H (75-99) mg/dL Hemoglobin A1c (0.0-6.0) % C-Reactive Protein (<1.0) mg/dL Microbiology - Last 24 Hours (Table) 12/03/21 12:00 Gram Stain - Preliminary Elbow - Left Tissue Culture - Preliminary 11/28/21 11:15 Blood Culture - Final Blood No Growth after 144 hours 11/28/21 11:25 Blood Culture - Final Blood No Growth after 144 hours Assessment and Plan (1) Pneumonia Current Visit: Yes Status: Acute Code(s): J18.9 - PNEUMONIA, UNSPECIFIED ORGANISM SNOMED Code(s): 549095115 Plan: 1patient with a strep pneumo bacteremia source likely pneumonia in this patient presented to hospital with increasing shortness of breath and cough and evidence of pulmonary infiltrate and elevated procalcitonin. 2patient with a left elbow wound status post I&D concerning for Osteomyelitis cultures are currently pending patient is covered with Rocephin antibiotic will be adjusted further on the basis of culture from the left elbow 3-worsening leukocytosis possible oropharyngeal candidiasis/thrush , white count is trending downward with addition of Diflucan which will be continued Time with Patient: Less than 30
[2021-12-05 16:30] LABS: Glucose,Whole Blood 143 mg/dL (75-99)
--- NOTE | 2021-12-05 17:40 | P.PN ---
Subjective Progress Note Date: 12/05/21 (delayed charting seen at 1145) Principal diagnosis: cough and congestion Patient is a 76-year-old male with coronary artery disease, congestive heart failure, dementia, hypertension, and dyslipidemia along with prior pulmonary embolism maintain on Xarelto who initially presented to the ER with complaints of creasing shortness of breath. In the ER he underwent an extensive evaluation was ultimately diagnosed with pneumonia with sepsis and acute on chronic hypoxic respiratory failure. Patient was subsequently admitted. He was started on Rocephin, Zithromax, and Solu-Medrol. He was seen by pulmonary. Blood cultures came back positive for strep pneumonia. Infectious disease was consulted due to bacteremia as well as left elbow wound. Orthopedics was consulted and evaluated the patient. They felt he had presumptive left olecranon osteomyelitis with a wound that probes to exposed bone. They recommended an MRI which was unable to be obtained. Antibiotics were simplified to Rocephin. Patient underwent incision and excisional debridement of the left olecranon bone with osteomyelitis and bone cultures. Case was discussed with infectious disease. Plan will be for PICC line placement and IV antibiotics. Imaging: X-ray left elbow-soft tissue wound without bony distraction no convincing radiological evidence of osteomyelitis. X-ray: Left mid and lower lung interface opacities correlate for pneumonia Patient seen and examined at bedside: He had a BM today. Still have some abdominal pain, Arm pain is better controlled. General: non toxic, no distress, appears at stated age Derm: warm, dry Head: atraumatic, normocephalic, symmetric Eyes: EOMI, no lid lag, anicteric sclera Mouth: no lip lesion, mucus membranes moist Cardiovascular: S1S2 reg, no murmur, positive posterior tibial pulse bilateral, Lungs: Rhonchi bilateral bases , no accessory muscle use Abdominal: soft, nontender to palpation, no guarding, no appreciable organomegaly Ext: no gross muscle atrophy, no edema, no contractures, left elbow with dressing in place, R arm picc line dressing Neuro: CN II-XI grossly intact, no focal neuro deficits Psych: Alert, oriented, appropriate affect Assessment/Plan: Strep pneumonia community-acquired pneumonia Acute exacerbation of COPD Acute on chronic hypoxic respiratory failure baseline 3-4 L Strep Pneumonia Bacteremia -Pulmonary recommendations appreciated- solumedrol, , bronchodilators -Back on home O2 requirements. - ID recs appreciated - Rocpehin, PICC line Left olecranon osteomyelitis -Orthopedic surgery recommendations appreciated. outpatint in 10-14 days.. - Discussed with ID await cultures, repeat blood cultures negative. PICC line ordered anticipated 4-6 weeks of IV abx. Abdominal Pain - x-ray without acute process - continue with bowel regiment History of pulmonary embolism -Xarelto Prediabetes with Hyperglycemia - Likely secondary to steroids - follow BS - Metformin on discharge Leukocytosis - follow CBC - likely due to steroid use Lactic acidosis, resolved Sepsis, resolved Chronic: Chronic Congestive Heart Failure, unknown type Chronic back pain BPH Lumbar spondylolysis with myelopathy Hypertension Dyslipidemia Coronary artery disease DVT prophylaxis: SCDs Discussed with: Patient, nursing Anticipated discharge: in 2-[address]: A total of 37 minutes was spent on the care of this complex patient more than 50% of the time was spent in counseling and care coordination. Active Medications Generic Name Dose Route Start Last Admin Trade Name Freq PRN Reason Stop Dose Admin Albuterol/Ipratropium 3 ml 11/27/21 02:24 11/27/21 03:05 Ipratropium-Albuterol 3 Ml Neb INHALATION 3 ml RT-Q2H PRN Administration Shortness Of Breath Or Wheezing Albuterol/Ipratropium 3 ml 11/27/21 12:00 12/05/21 17:04 Ipratropium-Albuterol 3 Ml Neb INHALATION Not Given RT-Q4H ABDOULAYE Alprazolam 0.25 mg 11/27/21 23:41 12/03/21 20:03 Alprazolam 0.25 Mg Tab PO 0.25 mg TID PRN Administration Anxiety Amlodipine Besylate 5 mg 12/02/21 10:30 12/05/21 07:45 Amlodipine 5 Mg Tab PO 5 mg BID ABDOULAYE Administration Budesonide/Formoterol Fumarate 2 puff 11/26/21 20:00 12/05/21 09:01 Symbicort 160-4.5 Mcg Inhaler INHALATION Not Given RT-BID ABDOULAYE Cholecalciferol 125 mcg 11/25/21 09:00 12/05/21 07:44 Cholecalciferol 125 Mcg (5000 Iu) Tablet PO 125 mcg DAILY ABDOULAYE Administration Clonidine 0.2 mg 11/27/21 23:32 12/02/21 07:26 Clonidine Hcl 0.2 Mg Tab PO 0.2 mg QID PRN Administration Blood Pressure - High Fluconazole 100 mg 12/05/21 09:00 12/05/21 07:45 Fluconazole 100 Mg Tab PO 100 mg DAILY ABDOULAYE Administration Protocol Gabapentin 600 mg 11/24/21 22:00 12/05/21 16:45 Gabapentin 300 Mg Cap PO 600 mg TID ABDOULAYE Administration Guaifenesin 200 mg 11/30/21 18:00 12/05/21 16:44 Guaifenesin Syrup 100mg/5ml 200 Mg/10 Ml Cup PO 200 mg Q6HR ABDOULAYE Administration Sodium Chloride 1,000 mls @ 10 mls/hr 11/25/21 07:45 12/05/21 06:18 Saline 0.9% IV Not Given .Q24H ABDOULAYE Protocol Ceftriaxone Sodium 2 gm/ 50 mls @ 100 mls/hr 11/27/21 11:00 12/05/21 07:45 Sodium Chloride IVPB 100 mls/hr Q24HR ABDOULAYE Administration Protocol Loratadine 10 mg 12/04/21 15:00 12/05/21 07:45 Loratadine 10 Mg Tab PO 10 mg DAILY ABDOULAYE Administration Methylprednisolone Sodium Succinate 40 mg 12/04/21 09:00 12/05/21 16:45 Methylprednisolone Sod Succi 40 Mg/Ml 1 Ml Vial IV 40 mg Q8HR ABDOULAYE Administration Metoprolol Tartrate 12.5 mg 12/02/21 10:30 12/05/21 07:44 Metoprolol Tartrate 12.5 Mg Tab PO 12.5 mg BID ABDOULAYE Administration Miscellaneous Information 1 each 11/24/21 20:15 Pneumonia Protocol Utilized 1 Each Misc PO ONCE PRN Per Protocol Oxycodone/Acetaminophen 1 each 11/25/21 07:30 12/05/21 16:44 Oxycodone-Apap 10-325mg 1 Each Tab PO 1 each TID-W/MEALS ABDOULAYE Administration Oxycodone/Acetaminophen 1 each 11/26/21 07:23 12/03/21 20:03 Oxycodone-Apap 10-325mg 1 Each Tab PO 1 each Q6HR PRN Administration Pain Polyethylene Glycol 17 gm 12/03/21 09:00 12/05/21 07:44 Polyethylene Glycol 3350 17 Gm Powd.Pack PO 17 gm DAILY ABDOULAYE Administration Rivaroxaban 2.5 mg 12/04/21 11:15 12/05/21 07:44 Rivaroxaban 2.5 Mg Tablet PO 2.5 mg BID ABDOULAYE Administration Protocol Thiamine HCl 100 mg 11/26/21 09:00 12/05/21 07:45 Thiamine 100 Mg Tab PO 100 mg DAILY ABDOULAYE Administration Objective - Vital Signs Vital signs: Vital Signs Temp 98.1 F 12/05/21 15:49 Pulse 80 12/05/21 11:24 Resp 16 12/05/21 15:49 BP 148/67 12/05/21 15:49 Pulse Ox 95 12/05/21 15:49 Intake & Output 12/04/21 12/05/21 12/05/21 18:59 06:59 18:59 Intake Total 120 Output Total 1900 700 300 Balance -1900 -700 -180 Intake: Oral 120 Output: Urine 1900 700 300 Other: Voiding Method Urinal - Labs CBC & Chem 7: 12/05/21 09:27 12/05/21 09:27 Labs: Abnormal Lab Results - Last 24 Hours (Table) 12/04/21 12/05/21 12/05/21 Range/Units 20:15 05:56 09:27 WBC (3.8-10.6) k/uL RBC (4.30-5.90) m/uL MCV (80.0-100.0) fL Plt Count (150-450) k/uL ESR (0-15) mm/hr Sodium (137-145) mmol/L Chloride (98-107) mmol/L Carbon Dioxide (22-30) mmol/L BUN (9-20) mg/dL Glucose (74-99) mg/dL POC Glucose (mg/dL) 166 H 185 H (75-99) mg/dL Hemoglobin A1c 6.4 H (0.0-6.0) % C-Reactive Protein (<1.0) mg/dL 12/05/21 12/05/21 12/05/21 Range/Units 09:27 09:27 11:26 WBC 24.5 H (3.8-10.6) k/uL RBC 4.20 L (4.30-5.90) m/uL MCV 102.0 H (80.0-100.0) fL Plt Count 501 H (150-450) k/uL ESR 17 H (0-15) mm/hr Sodium 135 L (137-145) mmol/L Chloride 93 L (98-107) mmol/L Carbon Dioxide 33 H (22-30) mmol/L BUN 24 H (9-20) mg/dL Glucose 207 H (74-99) mg/dL POC Glucose (mg/dL) 174 H (75-99) mg/dL Hemoglobin A1c (0.0-6.0) % C-Reactive Protein 1.3 H (<1.0) mg/dL 12/05/21 Range/Units 16:28 WBC (3.8-10.6) k/uL RBC (4.30-5.90) m/uL MCV (80.0-100.0) fL Plt Count (150-450) k/uL ESR (0-15) mm/hr Sodium (137-145) mmol/L Chloride (98-107) mmol/L Carbon Dioxide (22-30) mmol/L BUN (9-20) mg/dL Glucose (74-99) mg/dL POC Glucose (mg/dL) 143 H (75-99) mg/dL Hemoglobin A1c (0.0-6.0) % C-Reactive Protein (<1.0) mg/dL Microbiology - Last 24 Hours (Table) 12/03/21 12:00 Gram Stain - Preliminary Elbow - Left Tissue Culture - Preliminary 11/28/21 11:15 Blood Culture - Final Blood No Growth after 144 hours 11/28/21 11:25 Blood Culture - Final Blood No Growth after 144 hours
[2021-12-05 20:59] LABS: Glucose,Whole Blood 142 mg/dL (75-99)
[2021-12-06] MEDS: IPRATROPIUM-ALBUTEROL 3 ML NEB INHALATION SCH ×6 (03:45→23:38)
[2021-12-06] MEDS: SODIUM CHLORIDE 0.9% 1,000 ML IV SCH (05:49)
[2021-12-06] MEDS: oxyCODONE-APAP 10-325MG 1 EACH TAB PO SCH ×3 (06:19→17:27)
[2021-12-06] MEDS: guaiFENesin SYRUP 100MG/5ML 200 MG/10 ML CUP PO SCH ×4 (06:19→23:33)
[2021-12-06 06:23] LABS: Glucose,Whole Blood 145 mg/dL (75-99)
[2021-12-06] MEDS: SYMBICORT 160-4.5 MCG INHALER INHALATION SCH ×2 (08:04→19:39)
[2021-12-06 08:37] LABS: HCT 43.7 % (39.0-53.0); HGB 13.2 gm/dL (13.0-17.5); Hypochromasia Slight; MCH 31.1 pg (25.0-35.0); MCHC 30.2 g/dL (31.0-37.0); MCV 103.1 fL (80.0-100.0); Macrocytosis Slight; Mean Platelet Volume 7.3; Platelet Count 471 k/uL (150-450); RBC 4.24 m/uL (4.30-5.90); RDW 13.1 % (11.5-15.5); WBC 22.8 k/uL (3.8-10.6)
[2021-12-06 08:47] LABS: African American GFR (CKD) >90 (>60 ml/min/1.73 sqM); Anion Gap 4 mmol/L; Blood Urea Nitrogen 25 mg/dL (9-20); Carbon Dioxide 35 mmol/L (22-30); Chloride 93 mmol/L (98-107); Glucose 223 mg/dL (74-99); Non-African American GFR(CKD) 81 (>60 ml/min/1.73 sqM); Potassium 4.9 mmol/L (3.5-5.1); Sodium 132 mmol/L (137-145)
[2021-12-06] MEDS: CHOLECALCIFEROL 125 MCG (5000 IU) TABLET PO SCH (09:06)
[2021-12-06] MEDS: THIAMINE 100 MG TAB PO SCH (09:06)
[2021-12-06] MEDS: GABAPENTIN 300 MG CAP PO SCH ×3 (09:06→20:53)
[2021-12-06] MEDS: RIVAROXABAN 2.5 MG TABLET PO SCH ×2 (09:06→20:53)
[2021-12-06] MEDS: METOPROLOL TARTRATE 12.5 MG TAB PO SCH ×2 (09:06→20:53)
[2021-12-06] MEDS: FLUCONAZOLE 100 MG TAB PO SCH (09:06)
[2021-12-06] MEDS: amLODIPine 5 MG TAB PO SCH ×2 (09:06→20:53)
[2021-12-06] MEDS: LORATADINE 10 MG TAB PO SCH (09:06)
[2021-12-06] MEDS: methylPREDNISolone SOD SUCCI 40 MG/ML 1 ML VIAL IV SCH ×3 (09:07→20:53)
[2021-12-06] MEDS: polyethylene glycoL 3350 17 GM POWD.PACK PO SCH (09:08)
--- NOTE | 2021-12-06 12:24 | P.PN ---
Subjective Progress Note Date: 12/06/21 Principal diagnosis: acute on chronic hypoxic respiratory failure secondary to acute could be community-acquired pneumonia On 12/05/2021 patient seen in follow-up on selective care unit. He is still quite congested, his bronchospastic, although breathing a bit easier compared to yesterday. He received a dose of IV Lasix yesterday, he has diabetes, lower extremity edema is improving. He is able to bring up some yellow colored phlegm. He is using incentive spirometer but needs encouragement, he is achieving 1750 ML on the today. Remains on antibiotics for strep pneumonia bacteremia, ID service is following. He is status post I&D of the left elbow. He is currently on IV Solu-Medrol 41 g every 8 hours, he is on DuoNeb, and Symbicort. Yesterday's chest x-ray is showing stable suspected COPD, minimal fibrotic changes to the left mid and lower lung zone without significant interval progression. No pleural effusion or pneumothorax. Flat plate of the abdomen showed no free air under the diaphragm, no signs of acute high-grade small bowel obstruction, no significant fecal loading. Wound cultures from the left elbow I&D have shown no organisms thus far, follow up blood cultures are negative, sputum culture has shown Alexandra albicans. Patient was reevaluated today on 12/06/2021, patient remains on the regular medical floor, he is doing fairly well, his pulmonary status seems to be intermittently waxing and waning. Today he seems to be more comfortable, less short of breath, hardly any rhonchi or wheezes. His CT of the abdomen showed no evidence of significant pulmonary disease especially on the proximal cuts were and I was able to review the left lower lobe. He has some chronic changes in the left lower lobe, no clear-cut evidence of active pneumonia at present.patient continues to have leukocytosis with the present of 22.8 hemoglobin is 13.2 lites are normal renal profile is normal. Patient is still being followed by infectious disease on the case. Objective - Vital Signs Vital signs: Vital Signs Temp 97.6 F 12/06/21 08:00 Pulse 72 12/06/21 11:47 Resp 18 12/06/21 08:00 BP 131/64 12/06/21 08:00 Pulse Ox 95 12/06/21 08:00 Intake & Output 12/05/21 12/06/2122 18:59 06:59 18:59 Intake Total 120 240 Output Total 300 1000 Balance -180 -1000 240 Intake: Oral 120 240 Output: Urine 300 1000 Other: Voiding Method Urinal Urinal # Voids 1 # Bowel Movements 1 - Exam Physical Exam: Revealed a 76-year-old white male in no distress, on 3 L nasal cannula O2 sat is 95%. Head: Is atraumatic, normocephalic. HEENT:[Neck is supple.] [No neck masses.] [No thyromegaly.] [No JVD.] Chest: [minimal fine crackles at the bases, intermittent rhonchi on forced expir atory maneuver noted. Cardiac Exam: [Normal S1 and S2, no S3 gallop, no murmur.] Abdomen: [Soft, nontender, no megaly, no rebound, no guarding, normal bowel sounds.] Extremities: [No clubbing, no edema, no cyanosis.] Neurological Exam: [No focal neurologic deficit.]alert oriented 3. Psychiatric: Normal mood affect and normal mental status examination. - Labs CBC & Chem 7: 12/06/21 08:20 12/06/21 08:20 Labs: Abnormal Lab Results - Last 24 Hours (Table) 12/05/21 12/05/21 12/05/21 Range/Units 09:27 16:28 20:46 WBC (3.8-10.6) k/uL RBC (4.30-5.90) m/uL MCV (80.0-100.0) fL MCHC (31.0-37.0) g/dL Plt Count (150-450) k/uL Sodium (137-145) mmol/L Chloride (98-107) mmol/L Carbon Dioxide (22-30) mmol/L BUN (9-20) mg/dL Glucose (74-99) mg/dL POC Glucose (mg/dL) 143 H 142 H (75-99) mg/dL Hemoglobin A1c 6.4 H (0.0-6.0) % 12/06/21 12/06/21 12/06/21 Range/Units 05:55 08:20 08:20 WBC 22.8 H (3.8-10.6) k/uL RBC 4.24 L (4.30-5.90) m/uL MCV 103.1 H (80.0-100.0) fL MCHC 30.2 L (31.0-37.0) g/dL Plt Count 471 H (150-450) k/uL Sodium 132 L (137-145) mmol/L Chloride 93 L (98-107) mmol/L Carbon Dioxide 35 H (22-30) mmol/L BUN 25 H (9-20) mg/dL Glucose 223 H (74-99) mg/dL POC Glucose (mg/dL) 145 H (75-99) mg/dL Hemoglobin A1c (0.0-6.0) % Microbiology - Last 24 Hours (Table) 12/05/21 09:27 Blood Culture - Preliminary Blood No Growth after 24 hours 12/03/21 12:00 Anaerobic Culture - Preliminary Elbow - Left 12/03/21 12:00 Gram Stain - Preliminary Elbow - Left Tissue Culture - Preliminary Assessment and Plan Assessment: impression: Acute Streptococcus pneumonia with streptococcus bacteremia Acute on chronic hypoxic respiratory failure secondary to pneumonia and suspect underlying COPD FEV1 is 41%, Acute exacerbation of COPD. History of pulmonary embolism. Benign essential hypertension. History of lumbar spondylosis and myelopathy. [id number] smoking history, and remission for the last 10 years. Chronic hypoxic respiratory failure secondary to COPD. Left elbow laceration, requiring incision and drainage by General surgery. recommendation: continue medical treatment. Continue bronchodilators and steroids. Consider discharge planning in the next 24-48 hours, patient will definitely need placement. Time with Patient: Less than 30
--- NOTE | 2021-12-06 17:38 | P.PN ---
Subjective Progress Note Date: 12/06/21 Principal diagnosis: Strep pneumo bacteremia pneumonia and a question of left elbow bursitis Patient is a 76-year-old male presented to the hospital with shortness of breath and cough with evidence of pneumonia and did have evidence of strep pneumo bacteremia, sputum has been cannula and the blood culture has been negative patient also having a problem with the left elbow which seemed to have been treated in the outpatient setting and culture were done to which I do not have any excess at this point , x-rays of the elbow did not show any bony changes. 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 On today's evaluation that is 12/06/2021, the patient remains to be afebrile, the patient is breathing comfortably on nasal cannula oxygen, patient denies chest pain , continued to have cough with some purulent sputum production, the patient pain to the left elbow is currently controlled and did have minimal blood stained drainage on the dressing per the nursing staff Objective - Vital Signs Vital signs: Vital Signs Temp 98.3 F 12/06/21 12:00 Pulse 60 12/06/21 15:39 Resp 18 12/06/21 14:00 BP 136/70 12/06/21 12:00 Pulse Ox 99 12/06/21 12:00 Intake & Output 12/05/21 12/06/21 12/06/21 18:59 06:59 18:59 Intake Total 120 240 Output Total 300 1000 Balance -180 -1000 240 Intake: Oral 120 240 Output: Urine 300 1000 Other: Voiding Method Urinal Urinal # Voids 1 # Bowel Movements 1 - Exam GENERAL DESCRIPTION: An elderly male lying in bed in no distress RESPIRATORY SYSTEM: Unlabored breathing , decreased breath sounds at bases HEART: S1 S2 regular rate and rhythm , ABDOMEN: Soft , no tenderness EXTREMITIES: Left elbow is currently dressed no drainage on the dressing - Labs CBC & Chem 7: 12/06/21 08:20 12/06/21 08:20 Labs: Abnormal Lab Results - Last 24 Hours (Table) 12/05/21 12/05/21 12/06/21 Range/Units 16:28 20:46 05:55 WBC (3.8-10.6) k/uL RBC (4.30-5.90) m/uL MCV (80.0-100.0) fL MCHC (31.0-37.0) g/dL Plt Count (150-450) k/uL Sodium (137-145) mmol/L Chloride (98-107) mmol/L Carbon Dioxide (22-30) mmol/L BUN (9-20) mg/dL Glucose (74-99) mg/dL POC Glucose (mg/dL) 143 H 142 H 145 H (75-99) mg/dL 12/06/21 12/06/21 Range/Units 08:20 08:20 WBC 22.8 H (3.8-10.6) k/uL RBC 4.24 L (4.30-5.90) m/uL MCV 103.1 H (80.0-100.0) fL MCHC 30.2 L (31.0-37.0) g/dL Plt Count 471 H (150-450) k/uL Sodium 132 L (137-145) mmol/L Chloride 93 L (98-107) mmol/L Carbon Dioxide 35 H (22-30) mmol/L BUN 25 H (9-20) mg/dL Glucose 223 H (74-99) mg/dL POC Glucose (mg/dL) (75-99) mg/dL Microbiology - Last 24 Hours (Table) 12/05/21 09:27 Blood Culture - Preliminary Blood No Growth after 24 hours 12/03/21 12:00 Anaerobic Culture - Preliminary Elbow - Left 12/03/21 12:00 Gram Stain - Preliminary Elbow - Left Tissue Culture - Preliminary Assessment and Plan (1) Pneumonia Current Visit: Yes Status: Acute Code(s): J18.9 - PNEUMONIA, UNSPECIFIED ORGANISM SNOMED Code(s): 496678821 Plan: 1patient with a strep pneumo bacteremia source likely pneumonia in this patient presented to hospital with increasing shortness of breath and cough and evidence of pulmonary infiltrate and elevated procalcitonin. 2patient with a left elbow wound status post I&D concerning for Osteomyelitis cultures are currently pending patient is covered with Rocephin antibiotic will be adjusted further on the basis of culture from the left elbow 3-leukocytosis possible oropharyngeal candidiasis/thrush , white count is trending downward and is down to 22,000 today, continue with addition of Diflucan and monitor clinical course closely Time with Patient: Less than 30
--- NOTE | 2021-12-06 18:06 | P.PN ---
Subjective Progress Note Date: 12/06/21 (delayed charting seen at 1130) Principal diagnosis: cough and congestion Patient is a 76-year-old male with coronary artery disease, congestive heart failure, dementia, hypertension, and dyslipidemia along with prior pulmonary embolism maintain on Xarelto who initially presented to the ER with complaints of creasing shortness of breath. In the ER he underwent an extensive evaluation was ultimately diagnosed with pneumonia with sepsis and acute on chronic hypoxic respiratory failure. Patient was subsequently admitted. He was started on Rocephin, Zithromax, and Solu-Medrol. He was seen by pulmonary. Blood cultures came back positive for strep pneumonia. Infectious disease was consulted due to bacteremia as well as left elbow wound. Orthopedics was consulted and evaluated the patient. They felt he had presumptive left olecranon osteomyelitis with a wound that probes to exposed bone. They recommended an MRI which was unable to be obtained. Antibiotics were simplified to Rocephin. Patient underwent incision and excisional debridement of the left olecranon bone with osteomyelitis confirmed. TIERNEY recommended PICC line and IV ABX. Imaging: X-ray left elbow-soft tissue wound without bony distraction no convincing radiological evidence of osteomyelitis. X-ray: Left mid and lower lung interface opacities correlate for pneumonia Patient seen and examined at bedside: ABD pain with movement but getting better, wants to go home. No chest pain, breathin is better. General: non toxic, no distress, appears at stated age Derm: warm, dry Head: atraumatic, normocephalic, symmetric Eyes: EOMI, no lid lag, anicteric sclera Mouth: no lip lesion, mucus membranes moist Cardiovascular: S1S2 reg, no murmur, positive posterior tibial pulse bilateral, Lungs: Decresaed bs bilateral , no accessory muscle use Abdominal: soft, nontender to palpation, no guarding, no appreciable organomegaly Ext: no gross muscle atrophy, no edema, no contractures, left elbow with dressing in place, R arm picc line dressing Neuro: CN II-XI grossly intact, no focal neuro deficits Psych: Alert, oriented, appropriate affect Assessment/Plan: Strep pneumonia community-acquired pneumonia Acute exacerbation of COPD Acute on chronic hypoxic respiratory failure baseline 3-4 L Strep Pneumonia Bacteremia Thrush -Pulmonary recommendations appreciated- solumedrol, bronchodilators -Back on home O2 requirements. - ID recs appreciated - Rocpehin, PICC line placed on 4/15. - Diflucan Left olecranon osteomyelitis -Orthopedic surgery recommendations appreciated. outpatient in 10-14 days.. - Discussed with ID await cultures, repeat blood cultures negative. PICC line placed outpatient rocpephin- awaiting auth Abdominal Pain - CT without acute abnormality - pain control - continue with bowel regiment History of pulmonary embolism -Xarelto Prediabetes with Hyperglycemia - Likely secondary to steroids - follow BS - Metformin on discharge Leukocytosis - follow CBC - likely due to steroid use Lactic acidosis, resolved Sepsis, resolved Chronic: Chronic Congestive Heart Failure, unknown type Chronic back pain BPH Lumbar spondylolysis with myelopathy Hypertension Dyslipidemia Coronary artery disease Discussed with daughter and plan is for him to return home with her and she will help with IV abx after training from nursing. All questions answered. DVT prophylaxis: SCDs Discussed with: Patient, nursing Anticipated discharge: once abx auth obtained Anticipated discharge place: A total of 25 minutes was spent on the care of this complex patient more than 50% of the time was spent in counseling and care coordination. Active Medications Generic Name Dose Route Start Last Admin Trade Name Freq PRN Reason Stop Dose Admin Albuterol/Ipratropium 3 ml 11/27/21 02:24 11/27/21 03:05 Ipratropium-Albuterol 3 Ml Neb INHALATION 3 ml RT-Q2H PRN Administration Shortness Of Breath Or Wheezing Albuterol/Ipratropium 3 ml 11/27/21 12:00 12/06/21 15:26 Ipratropium-Albuterol 3 Ml Neb INHALATION 3 ml RT-Q4H ABDOULAYE Administration Alprazolam 0.25 mg 11/27/21 23:41 12/03/21 20:03 Alprazolam 0.25 Mg Tab PO 0.25 mg TID PRN Administration Anxiety Amlodipine Besylate 5 mg 12/02/21 10:30 12/06/21 09:06 Amlodipine 5 Mg Tab PO 5 mg BID ABDOULAYE Administration Budesonide/Formoterol Fumarate 2 puff 11/26/21 20:00 12/06/21 08:04 Symbicort 160-4.5 Mcg Inhaler INHALATION 2 puff RT-BID ABDOULAYE Administration Cholecalciferol 125 mcg 11/25/21 09:00 12/06/21 09:06 Cholecalciferol 125 Mcg (5000 Iu) Tablet PO 125 mcg DAILY ABDOULAYE Administration Clonidine 0.2 mg 11/27/21 23:32 12/02/21 07:26 Clonidine Hcl 0.2 Mg Tab PO 0.2 mg QID PRN Administration Blood Pressure - High Fluconazole 100 mg 12/05/21 09:00 12/06/21 09:06 Fluconazole 100 Mg Tab PO 100 mg DAILY ABDOULAYE Administration Protocol Gabapentin 600 mg 11/24/21 22:00 12/06/21 16:42 Gabapentin 300 Mg Cap PO 600 mg TID ABDOULAYE Administration Guaifenesin 200 mg 11/30/21 18:00 12/06/21 17:27 Guaifenesin Syrup 100mg/5ml 200 Mg/10 Ml Cup PO 200 mg Q6HR ABDOULAYE Administration Sodium Chloride 1,000 mls @ 10 mls/hr 11/25/21 07:45 12/06/21 05:49 Saline 0.9% IV Not Given .Q24H ABDOULAYE Protocol Ceftriaxone Sodium 2 gm/ 50 mls @ 100 mls/hr 11/27/21 11:00 12/06/21 09:07 Sodium Chloride IVPB 100 mls/hr Q24HR ABDOULAYE Administration Protocol Loratadine 10 mg 12/04/21 15:00 12/06/21 09:06 Loratadine 10 Mg Tab PO 10 mg DAILY ABDOULAYE Administration Methylprednisolone Sodium Succinate 40 mg 12/04/21 09:00 12/06/21 16:42 Methylprednisolone Sod Succi 40 Mg/Ml 1 Ml Vial IV 40 mg Q8HR ABDOULAYE Administration Metoprolol Tartrate 12.5 mg 12/02/21 10:30 12/06/21 09:06 Metoprolol Tartrate 12.5 Mg Tab PO 12.5 mg BID ABDOULAYE Administration Miscellaneous Information 1 each 11/24/21 20:15 Pneumonia Protocol Utilized 1 Each Misc PO ONCE PRN Per Protocol Oxycodone/Acetaminophen 1 each 11/25/21 07:30 12/06/21 17:27 Oxycodone-Apap 10-325mg 1 Each Tab PO 1 each TID-W/MEALS ABDOULAYE Administration Oxycodone/Acetaminophen 1 each 11/26/21 07:23 12/03/21 20:03 Oxycodone-Apap 10-325mg 1 Each Tab PO 1 each Q6HR PRN Administration Pain Polyethylene Glycol 17 gm 12/03/21 09:00 12/06/21 09:08 Polyethylene Glycol 3350 17 Gm Powd.Pack PO 17 gm DAILY ABDOULAYE Administration Rivaroxaban 2.5 mg 12/04/21 11:15 12/06/21 09:06 Rivaroxaban 2.5 Mg Tablet PO 2.5 mg BID ABDOULAYE Administration Protocol Thiamine HCl 100 mg 11/26/21 09:00 12/06/21 09:06 Thiamine 100 Mg Tab PO 100 mg DAILY ABDOULAYE Administration Objective - Vital Signs Vital signs: Vital Signs Temp 98.2 F 12/06/21 16:00 Pulse 94 12/06/21 16:00 Resp 18 12/06/21 16:00 BP 148/66 12/06/21 16:00 Pulse Ox 92 L 12/06/21 16:00 Intake & Output 12/05/21 12/06/21 12/06/21 18:59 06:59 18:59 Intake Total 120 440 Output Total 300 1000 300 Balance -180 -1000 140 Intake: Oral 120 440 Output: Urine 300 1000 300 Other: Voiding Method Urinal Urinal # Voids 1 # Bowel Movements 1 - Labs CBC & Chem 7: 12/06/21 08:20 12/06/21 08:20 Labs: Abnormal Lab Results - Last 24 Hours (Table) 12/05/21 12/06/21 12/06/21 Range/Units 20:46 05:55 08:20 WBC 22.8 H (3.8-10.6) k/uL RBC 4.24 L (4.30-5.90) m/uL MCV 103.1 H (80.0-100.0) fL MCHC 30.2 L (31.0-37.0) g/dL Plt Count 471 H (150-450) k/uL Sodium (137-145) mmol/L Chloride (98-107) mmol/L Carbon Dioxide (22-30) mmol/L BUN (9-20) mg/dL Glucose (74-99) mg/dL POC Glucose (mg/dL) 142 H 145 H (75-99) mg/dL 12/06/21 Range/Units 08:20 WBC (3.8-10.6) k/uL RBC (4.30-5.90) m/uL MCV (80.0-100.0) fL MCHC (31.0-37.0) g/dL Plt Count (150-450) k/uL Sodium 132 L (137-145) mmol/L Chloride 93 L (98-107) mmol/L Carbon Dioxide 35 H (22-30) mmol/L BUN 25 H (9-20) mg/dL Glucose 223 H (74-99) mg/dL POC Glucose (mg/dL) (75-99) mg/dL Microbiology - Last 24 Hours (Table) 12/05/21 09:27 Blood Culture - Preliminary Blood No Growth after 24 hours 12/03/21 12:00 Anaerobic Culture - Preliminary Elbow - Left 12/03/21 12:00 Gram Stain - Preliminary Elbow - Left Tissue Culture - Preliminary
[2021-12-06 20:40] LABS: Glucose,Whole Blood 184 mg/dL (75-99)
[2021-12-06] MEDS: ALPRAZolam 0.25 MG TAB PO PRN (23:38)
[2021-12-07] MEDS: IPRATROPIUM-ALBUTEROL 3 ML NEB INHALATION SCH ×6 (03:28→23:07)
[2021-12-07] MEDS: guaiFENesin SYRUP 100MG/5ML 200 MG/10 ML CUP PO SCH ×4 (06:19→23:27)
[2021-12-07] MEDS: oxyCODONE-APAP 10-325MG 1 EACH TAB PO SCH ×3 (06:19→17:41)
[2021-12-07 06:33] LABS: Glucose,Whole Blood 153 mg/dL (75-99)
[2021-12-07] MEDS: SYMBICORT 160-4.5 MCG INHALER INHALATION SCH ×2 (07:46→20:49)
[2021-12-07 08:03] LABS: HCT 42.1 % (39.0-53.0); HGB 13.4 gm/dL (13.0-17.5); MCH 32.4 pg (25.0-35.0); MCHC 31.8 g/dL (31.0-37.0); MCV 101.9 fL (80.0-100.0); Macrocytosis Slight; Platelet Count 451 k/uL (150-450); RBC 4.13 m/uL (4.30-5.90); RDW 13.2 % (11.5-15.5); WBC 20.7 k/uL (3.8-10.6)
[2021-12-07 08:29] LABS: African American GFR (CKD) >90 (>60 ml/min/1.73 sqM); Anion Gap 8 mmol/L; Blood Urea Nitrogen 28 mg/dL (9-20); Calcium 9.1 mg/dL (8.4-10.2); Carbon Dioxide 32 mmol/L (22-30); Chloride 95 mmol/L (98-107); Glucose 162 mg/dL (74-99); Non-African American GFR(CKD) 83 (>60 ml/min/1.73 sqM); Potassium 4.7 mmol/L (3.5-5.1); Sodium 135 mmol/L (137-145)
[2021-12-07] MEDS: GABAPENTIN 300 MG CAP PO SCH ×3 (08:42→20:01)
[2021-12-07] MEDS: RIVAROXABAN 2.5 MG TABLET PO SCH ×2 (08:42→19:57)
[2021-12-07] MEDS: methylPREDNISolone SOD SUCCI 40 MG/ML 1 ML VIAL IV SCH ×2 (08:42→20:01)
[2021-12-07] MEDS: METOPROLOL TARTRATE 12.5 MG TAB PO SCH ×2 (08:42→19:56)
[2021-12-07] MEDS: FLUCONAZOLE 100 MG TAB PO SCH (08:42)
[2021-12-07] MEDS: amLODIPine 5 MG TAB PO SCH ×2 (08:42→19:56)
[2021-12-07] MEDS: polyethylene glycoL 3350 17 GM POWD.PACK PO SCH (08:42)
[2021-12-07] MEDS: CHOLECALCIFEROL 125 MCG (5000 IU) TABLET PO SCH (08:42)
[2021-12-07] MEDS: THIAMINE 100 MG TAB PO SCH (08:42)
[2021-12-07] MEDS: LORATADINE 10 MG TAB PO SCH (08:42)
--- NOTE | 2021-12-07 11:35 | P.PN ---
Subjective Progress Note Date: 12/07/21 Principal diagnosis: acute on chronic hypoxic respiratory failure secondary to acute could be community-acquired pneumonia On 12/05/2021 patient seen in follow-up on selective care unit. He is still quite congested, his bronchospastic, although breathing a bit easier compared to yesterday. He received a dose of IV Lasix yesterday, he has diabetes, lower extremity edema is improving. He is able to bring up some yellow colored phlegm. He is using incentive spirometer but needs encouragement, he is achieving 1750 ML on the today. Remains on antibiotics for strep pneumonia bacteremia, ID service is following. He is status post I&D of the left elbow. He is currently on IV Solu-Medrol 41 g every 8 hours, he is on DuoNeb, and Symbicort. Yesterday's chest x-ray is showing stable suspected COPD, minimal fibrotic changes to the left mid and lower lung zone without significant interval progression. No pleural effusion or pneumothorax. Flat plate of the abdomen showed no free air under the diaphragm, no signs of acute high-grade small bowel obstruction, no significant fecal loading. Wound cultures from the left elbow I&D have shown no organisms thus far, follow up blood cultures are negative, sputum culture has shown Alexandra albicans. Patient was reevaluated today on 12/06/2021, patient remains on the regular medical floor, he is doing fairly well, his pulmonary status seems to be intermittently waxing and waning. Today he seems to be more comfortable, less short of breath, hardly any rhonchi or wheezes. His CT of the abdomen showed no evidence of significant pulmonary disease especially on the proximal cuts were and I was able to review the left lower lobe. He has some chronic changes in the left lower lobe, no clear-cut evidence of active pneumonia at present.patient continues to have leukocytosis with the present of 22.8 hemoglobin is 13.2 lites are normal renal profile is normal. Patient is still being followed by infectious disease on the case. Reevaluated today on 12/07/21, patient is basically about the same, continues to have intermittent episodes of cough wheezing shortness of breath. His pulmonary status seems to be waxing and waning, and fluctuating from day-to-day basis. Today the patient is coughing and wheezing, he has some difficulty clearing his secretions, and on physical examination he had significant rhonchi bilaterally. Hence I explained to the patient today that we'll may have to consider bronchoscopy and airways evaluation and possibly lavage of his lungs if he continues to do so in the next 24-48 hours. WBC count is still high 20.7 hemoglobin is 13.4 events lites are normal renal profile is normal. Patient remains on 3 L nasal cannula, and his O2 saturation is 92% Objective - Vital Signs Vital signs: Vital Signs Temp 98.1 F 12/07/21 08:00 Pulse 84 12/07/21 10:57 Resp 18 12/07/21 08:00 BP 121/62 12/07/21 08:00 Pulse Ox 92 L 12/07/21 08:00 Intake & Output 12/06/21 12/07/21 12/07/21 18:59 06:59 18:59 Intake Total 558 180 Output Total 400 800 Balance 158 -800 180 Intake: Oral 558 180 Output: Urine 400 800 Other: Voiding Method Urinal Urinal Urinal # Bowel Movements 1 1 - Exam Physical Exam: Revealed a 76-year-old white male in no distress, on 3 L nasal cannula O2 sat is 95%. Head: Is atraumatic, normocephalic. HEENT:[Neck is supple.] [No neck masses.] [No thyromegaly.] [No JVD.] Chest: [Rhonchi noted bilaterally. Cardiac Exam: [Normal S1 and S2, no S3 gallop, no murmur.] Abdomen: [Soft, nontender, no megaly, no rebound, no guarding, normal bowel sounds.] Extremities: [No clubbing, no edema, no cyanosis.] Left elbow is wrapped with sterile dressing Neurological Exam: [No focal neurologic deficit.]alert oriented 3. Psychiatric: Normal mood affect and normal mental status examination. - Labs CBC & Chem 7: 12/07/21 07:32 12/07/21 07:32 Labs: Abnormal Lab Results - Last 24 Hours (Table) 12/06/21 12/07/21 12/07/21 Range/Units 20:11 06:19 07:32 WBC 20.7 H (3.8-10.6) k/uL RBC 4.13 L (4.30-5.90) m/uL MCV 101.9 H (80.0-100.0) fL Plt Count 451 H (150-450) k/uL Sodium (137-145) mmol/L Chloride (98-107) mmol/L Carbon Dioxide (22-30) mmol/L BUN (9-20) mg/dL Glucose (74-99) mg/dL POC Glucose (mg/dL) 184 H 153 H (75-99) mg/dL 12/07/21 Range/Units 07:32 WBC (3.8-10.6) k/uL RBC (4.30-5.90) m/uL MCV (80.0-100.0) fL Plt Count (150-450) k/uL Sodium 135 L (137-145) mmol/L Chloride 95 L (98-107) mmol/L Carbon Dioxide 32 H (22-30) mmol/L BUN 28 H (9-20) mg/dL Glucose 162 H (74-99) mg/dL POC Glucose (mg/dL) (75-99) mg/dL Microbiology - Last 24 Hours (Table) 12/03/21 12:00 Gram Stain - Preliminary Elbow - Left Tissue Culture - Preliminary 12/05/21 09:27 Blood Culture - Preliminary Blood No Growth after 24 hours Assessment and Plan Assessment: impression: Acute Streptococcus pneumonia with streptococcus bacteremia Acute on chronic hypoxic respiratory failure secondary to pneumonia and suspect underlying COPD FEV1 is 41%, Acute exacerbation of COPD. History of pulmonary embolism. Benign essential hypertension. History of lumbar spondylosis and myelopathy. [id number] smoking history, and remission for the last 10 years. Chronic hypoxic respiratory failure secondary to COPD. Left elbow laceration, requiring incision and drainage by General surgery. recommendation: Order follow-up chest x-ray to be done in a.m. Continue bronchodilators. Continue antibiotics. Continue steroids. May have to consider bronchoscopy on this patient if he doesn't demonstrate improvement in the next 24-48 hours. Not quite ready for discharge planning. continue medical treatment. We'll continue to follow Time with Patient: Less than 30
[2021-12-07 11:39] LABS: Glucose,Whole Blood 161 mg/dL (75-99)
[2021-12-07] MEDS: SODIUM CHLORIDE 0.9% 1,000 ML IV SCH (12:00)
--- NOTE | 2021-12-07 13:33 | P.PN ---
Subjective Progress Note Date: 12/07/21 (delayed charting seen at 0920) Principal diagnosis: cough and congestion Patient is a 76-year-old male with coronary artery disease, congestive heart failure, dementia, hypertension, and dyslipidemia along with prior pulmonary embolism maintain on Xarelto who initially presented to the ER with complaints of creasing shortness of breath. In the ER he underwent an extensive evaluation was ultimately diagnosed with pneumonia with sepsis and acute on chronic hypoxic respiratory failure. Patient was subsequently admitted. He was started on Rocephin, Zithromax, and Solu-Medrol. He was seen by pulmonary. Blood cultures came back positive for strep pneumonia. Infectious disease was consulted due to bacteremia as well as left elbow wound. Orthopedics was consulted and evaluated the patient. They felt he had presumptive left olecranon osteomyelitis with a wound that probes to exposed bone. They recommended an MRI which was unable to be obtained. Antibiotics were simplified to Rocephin. Patient underwent incision and excisional debridement of the left olecranon bone with osteomyelitis confirmed. ID recommended PICC line and IV ABX. Imaging: X-ray left elbow-soft tissue wound without bony distraction no convincing radiological evidence of osteomyelitis. X-ray: Left mid and lower lung interface opacities correlate for pneumonia Patient seen and examined at bedside. Wants to go home, thinks breathing is near baseline, no chest pain, no shortness of breath General: non toxic, no distress, appears at stated age Derm: warm, dry Head: atraumatic, normocephalic, symmetric Eyes: EOMI, no lid lag, anicteric sclera Mouth: no lip lesion, mucus membranes moist Cardiovascular: S1S2 reg, no murmur, positive posterior tibial pulse bilateral, Lungs: ronchi bilateral , no accessory muscle use Abdominal: soft, nontender to palpation, no guarding, no appreciable organomegaly Ext: no gross muscle atrophy, no edema, no contractures, left elbow with dressing in place, R arm picc line dressing Neuro: CN II-XI grossly intact, no focal neuro deficits Psych: Alert, oriented, appropriate affect Assessment/Plan: Strep pneumonia community-acquired pneumonia Acute exacerbation of COPD Acute on chronic hypoxic respiratory failure baseline 3-4 L Strep Pneumonia Bacteremia Thrush -Pulmonary recommendations appreciated- solumedrol, bronchodilators -Back on home O2 requirements. - ID recs appreciated - Rocpehin, PICC line placed on 12/05. - Diflucan Left olecranon osteomyelitis - s/p I and D on 12/03 -Orthopedic surgery recommendations appreciated. outpatient follow-up in 10-14 days. - Discussed with ID await cultures, repeat blood cultures negative. PICC line placed outpatient rocpephin- awaiting auth Abdominal Pain, improved - CT without acute abnormality - pain control - continue with bowel regiment History of pulmonary embolism -Xarelto Prediabetes with Hyperglycemia - Likely secondary to steroids - follow BS - Metformin on discharge Leukocytosis - follow CBC - likely due to steroid use Lactic acidosis, resolved Sepsis, resolved Chronic: Chronic Congestive Heart Failure, unknown type Chronic back pain BPH Lumbar spondylolysis with myelopathy Hypertension Dyslipidemia Coronary artery disease Was planning on discharge in AM, however per nursing pulm is now considering bronch due to his congestion DVT prophylaxis: SCDs Discussed with: Patient, nursing Anticipated discharge: once abx auth obtained Anticipated discharge place: A total of 25 minutes was spent on the care of this complex patient more than 50% of the time was spent in counseling and care coordination. Active Medications Generic Name Dose Route Start Last Admin Trade Name Freq PRN Reason Stop Dose Admin Albuterol/Ipratropium 3 ml 11/27/21 02:24 11/27/21 03:05 Ipratropium-Albuterol 3 Ml Neb INHALATION 3 ml RT-Q2H PRN Administration Shortness Of Breath Or Wheezing Albuterol/Ipratropium 3 ml 11/27/21 12:00 12/07/21 10:45 Ipratropium-Albuterol 3 Ml Neb INHALATION 3 ml RT-Q4H ABDOULAYE Administration Alprazolam 0.25 mg 11/27/21 23:41 12/06/21 23:38 Alprazolam 0.25 Mg Tab PO 0.25 mg TID PRN Administration Anxiety Amlodipine Besylate 5 mg 12/02/21 10:30 12/07/21 08:42 Amlodipine 5 Mg Tab PO 5 mg BID ABDOULAYE Administration Budesonide/Formoterol Fumarate 2 puff 11/26/21 20:00 12/07/21 07:46 Symbicort 160-4.5 Mcg Inhaler INHALATION 2 puff RT-BID ABDOULAYE Administration Cholecalciferol 125 mcg 11/25/21 09:00 12/07/21 08:42 Cholecalciferol 125 Mcg (5000 Iu) Tablet PO 125 mcg DAILY ABDOULAYE Administration Clonidine 0.2 mg 11/27/21 23:32 12/02/21 07:26 Clonidine Hcl 0.2 Mg Tab PO 0.2 mg QID PRN Administration Blood Pressure - High Fluconazole 100 mg 12/05/21 09:00 12/07/21 08:42 Fluconazole 100 Mg Tab PO 100 mg DAILY ABDOULAYE Administration Protocol Gabapentin 600 mg 11/24/21 22:00 12/07/21 08:42 Gabapentin 300 Mg Cap PO 600 mg TID ABDOULAYE Administration Guaifenesin 200 mg 11/30/21 18:00 12/07/21 12:05 Guaifenesin Syrup 100mg/5ml 200 Mg/10 Ml Cup PO 200 mg Q6HR ABDOULAYE Administration Sodium Chloride 1,000 mls @ 10 mls/hr 11/25/21 07:45 12/07/21 12:00 Saline 0.9% IV Not Given .Q24H ABDOULAYE Protocol Ceftriaxone Sodium 2 gm/ 50 mls @ 100 mls/hr 11/27/21 11:00 12/07/21 08:41 Sodium Chloride IVPB 100 mls/hr Q24HR ABDOULAYE Administration Protocol Loratadine 10 mg 12/04/21 15:00 12/07/21 08:42 Loratadine 10 Mg Tab PO 10 mg DAILY ABDOULAYE Administration Methylprednisolone Sodium Succinate 40 mg 12/06/21 21:00 12/07/21 08:42 Methylprednisolone Sod Succi 40 Mg/Ml 1 Ml Vial IV 40 mg Q12HR ABDOULAYE Administration Metoprolol Tartrate 12.5 mg 12/02/21 10:30 12/07/21 08:42 Metoprolol Tartrate 12.5 Mg Tab PO 12.5 mg BID ABDOULAYE Administration Miscellaneous Information 1 each 11/24/21 20:15 Pneumonia Protocol Utilized 1 Each Misc PO ONCE PRN Per Protocol Oxycodone/Acetaminophen 1 each 11/25/21 07:30 12/07/21 12:05 Oxycodone-Apap 10-325mg 1 Each Tab PO 1 each TID-W/MEALS ABDOULAYE Administration Oxycodone/Acetaminophen 1 each 11/26/21 07:23 12/03/21 20:03 Oxycodone-Apap 10-325mg 1 Each Tab PO 1 each Q6HR PRN Administration Pain Polyethylene Glycol 17 gm 12/03/21 09:00 12/07/21 08:42 Polyethylene Glycol 3350 17 Gm Powd.Pack PO 17 gm DAILY ABDOULAYE Administration Rivaroxaban 2.5 mg 12/04/21 11:15 12/07/21 08:42 Rivaroxaban 2.5 Mg Tablet PO 2.5 mg BID ABDOULAYE Administration Protocol Thiamine HCl 100 mg 11/26/21 09:00 12/07/21 08:42 Thiamine 100 Mg Tab PO 100 mg DAILY ABDOULAYE Administration Objective - Vital Signs Vital signs: Vital Signs Temp 98.1 F 12/07/21 08:00 Pulse 84 12/07/21 10:57 Resp 18 12/07/21 08:00 BP 121/62 12/07/21 08:00 Pulse Ox 92 L 12/07/21 08:00 Intake & Output 12/06/21 12/07/21 12/07/21 18:59 06:59 18:59 Intake Total 558 360 Output Total 400 800 400 Balance 158 -800 -40 Intake: Oral 558 360 Output: Urine 400 800 400 Other: Voiding Method Urinal Urinal Urinal # Bowel Movements 1 1 - Labs CBC & Chem 7: 12/07/21 07:32 12/07/21 07:32 Labs: Abnormal Lab Results - Last 24 Hours (Table) 12/06/21 12/07/21 12/07/21 Range/Units 20:11 06:19 07:32 WBC 20.7 H (3.8-10.6) k/uL RBC 4.13 L (4.30-5.90) m/uL MCV 101.9 H (80.0-100.0) fL Plt Count 451 H (150-450) k/uL Sodium (137-145) mmol/L Chloride (98-107) mmol/L Carbon Dioxide (22-30) mmol/L BUN (9-20) mg/dL Glucose (74-99) mg/dL POC Glucose (mg/dL) 184 H 153 H (75-99) mg/dL 12/07/21 12/07/21 Range/Units 07:32 11:38 WBC (3.8-10.6) k/uL RBC (4.30-5.90) m/uL MCV (80.0-100.0) fL Plt Count (150-450) k/uL Sodium 135 L (137-145) mmol/L Chloride 95 L (98-107) mmol/L Carbon Dioxide 32 H (22-30) mmol/L BUN 28 H (9-20) mg/dL Glucose 162 H (74-99) mg/dL POC Glucose (mg/dL) 161 H (75-99) mg/dL Microbiology - Last 24 Hours (Table) 12/05/21 09:27 Blood Culture - Preliminary Blood No Growth after 48 hours 12/03/21 12:00 Gram Stain - Preliminary Elbow - Left Tissue Culture - Preliminary
[2021-12-07 16:18] LABS: Glucose,Whole Blood 140 mg/dL (75-99)
--- NOTE | 2021-12-07 17:30 | P.PN ---
Subjective Progress Note Date: 12/07/21 Principal diagnosis: Strep pneumo bacteremia pneumonia and a question of left elbow bursitis Patient is a 76-year-old male presented to the hospital with shortness of breath and cough with evidence of pneumonia and did have evidence of strep pneumo bacteremia, sputum has been cannula and the blood culture has been negative patient also having a problem with the left elbow which seemed to have been treated in the outpatient setting and culture were done to which I do not have any excess at this point , x-rays of the elbow did not show any bony changes. 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 On today's evaluation that is 12/07/2021, the patient continues to be afebrile, the patient is breathing comfortably on nasal cannula oxygen, patient denies chest pain, the patient did have moderate cough with some purulent sputum production, the patient pain to the left elbow is currently controlled and denies having any abdominal pain or diarrhea Objective - Vital Signs Vital signs: Vital Signs Temp 98.0 F 12/07/21 12:00 Pulse 85 12/07/21 16:10 Resp 18 12/07/21 14:00 BP 147/66 12/07/21 12:00 Pulse Ox 94 L 12/07/21 12:00 Intake & Output 12/06/21 12/07/21 12/07/21 18:59 06:59 18:59 Intake Total 558 360 Output Total 400 800 400 Balance 158 -800 -40 Intake: Oral 558 360 Output: Urine 400 800 400 Other: Voiding Method Urinal Urinal Urinal # Bowel Movements 1 1 - Exam GENERAL DESCRIPTION: An elderly male lying in bed in no distress RESPIRATORY SYSTEM: Unlabored breathing , decreased breath sounds at bases HEART: S1 S2 regular rate and rhythm , ABDOMEN: Soft , no tenderness EXTREMITIES: Left elbow is currently dressed no drainage on the dressing - Labs CBC & Chem 7: 12/07/21 07:32 12/07/21 07:32 Labs: Abnormal Lab Results - Last 24 Hours (Table) 12/06/21 12/07/21 12/07/21 Range/Units 20:11 06:19 07:32 WBC 20.7 H (3.8-10.6) k/uL RBC 4.13 L (4.30-5.90) m/uL MCV 101.9 H (80.0-100.0) fL Plt Count 451 H (150-450) k/uL Sodium (137-145) mmol/L Chloride (98-107) mmol/L Carbon Dioxide (22-30) mmol/L BUN (9-20) mg/dL Glucose (74-99) mg/dL POC Glucose (mg/dL) 184 H 153 H (75-99) mg/dL 12/07/21 12/07/21 Range/Units 07:32 11:38 WBC (3.8-10.6) k/uL RBC (4.30-5.90) m/uL MCV (80.0-100.0) fL Plt Count (150-450) k/uL Sodium 135 L (137-145) mmol/L Chloride 95 L (98-107) mmol/L Carbon Dioxide 32 H (22-30) mmol/L BUN 28 H (9-20) mg/dL Glucose 162 H (74-99) mg/dL POC Glucose (mg/dL) 161 H (75-99) mg/dL Microbiology - Last 24 Hours (Table) 12/05/21 09:27 Blood Culture - Preliminary Blood No Growth after 48 hours 12/03/21 12:00 Gram Stain - Preliminary Elbow - Left Tissue Culture - Preliminary Assessment and Plan (1) Pneumonia Current Visit: Yes Status: Acute Code(s): J18.9 - PNEUMONIA, UNSPECIFIED ORGANISM SNOMED Code(s): 001681097 Plan: 1patient with a strep pneumo bacteremia source likely pneumonia in this patient presented to hospital with increasing shortness of breath and cough and evidence of pulmonary infiltrate and elevated procalcitonin. 2patient with a left elbow wound status post I&D concerning for Osteomyelitis cultures are currently pending patient is covered with Rocephin , with the culture so far negative from the left elbow planning for Rocephin on discharge 3-leukocytosis possible oropharyngeal candidiasis/thrush , white count is trending downward and is down to 20,000 today, patient will continue with Diflucan and monitor clinical course closely Time with Patient: Less than 30
[2021-12-07 20:05] LABS: Glucose,Whole Blood 192 mg/dL (75-99)
[2021-12-08] MEDS: oxyCODONE-APAP 10-325MG 1 EACH TAB PO PRN ×2 (00:09→22:12)
[2021-12-08] MEDS: IPRATROPIUM-ALBUTEROL 3 ML NEB INHALATION SCH ×5 (04:36→21:02)
[2021-12-08] MEDS: SODIUM CHLORIDE 0.9% 1,000 ML IV SCH (05:43)
[2021-12-08 06:18] LABS: Glucose,Whole Blood 138 mg/dL (75-99)
[2021-12-08] MEDS: oxyCODONE-APAP 10-325MG 1 EACH TAB PO SCH ×3 (06:49→16:47)
[2021-12-08] MEDS: guaiFENesin SYRUP 100MG/5ML 200 MG/10 ML CUP PO SCH ×4 (06:49→23:33)
--- NOTE | 2021-12-08 08:15 | XR ---
EXAMINATION TYPE: XR chest 1V portable DATE OF EXAM: 12/08/2021 COMPARISON: X-ray dated 12/04/2021 HISTORY: Pneumonia/COPD TECHNIQUE: Single frontal view of the chest is obtained. FINDINGS: Persistent signs of COPD. Small atelectasis seen in the left lung base. No gillian area of pulmonary co nsolidation. No sizable pleural effusion or definite pneumothorax. No gross cardiomegaly. Aortic athe rosclerotic calcifications. IMPRESSION: As above.
[2021-12-08] MEDS ORDERED: HYDROmorphone 0.5 MG/0.5 ML SYRINGE IVP PRN (09:09)
[2021-12-08] MEDS ORDERED: ONDANSETRON 4 MG/2 ML VIAL IVP ONE ×2 (09:09→12:54)
[2021-12-08] MEDS ORDERED: MIDAZOLAM 2 MG/2 ML VIAL IV PRN (09:09)
[2021-12-08] MEDS ORDERED: LIDOCAINE 1% (10MG/ML) FOR IV START INTRADERMA PRN (09:09)
[2021-12-08] MEDS: GABAPENTIN 300 MG CAP PO SCH ×3 (09:24→20:42)
[2021-12-08] MEDS: RIVAROXABAN 2.5 MG TABLET PO SCH ×2 (09:24→20:43)
[2021-12-08] MEDS: LORATADINE 10 MG TAB PO SCH (09:24)
[2021-12-08] MEDS: FLUCONAZOLE 100 MG TAB PO SCH (09:24)
[2021-12-08] MEDS: METOPROLOL TARTRATE 12.5 MG TAB PO SCH ×2 (09:24→20:42)
[2021-12-08] MEDS: amLODIPine 5 MG TAB PO SCH ×2 (09:25→20:43)
[2021-12-08] MEDS: THIAMINE 100 MG TAB PO SCH (09:25)
[2021-12-08] MEDS: methylPREDNISolone SOD SUCCI 40 MG/ML 1 ML VIAL IV SCH ×2 (09:25→20:42)
[2021-12-08] MEDS: CHOLECALCIFEROL 125 MCG (5000 IU) TABLET PO SCH (09:25)
[2021-12-08] MEDS: polyethylene glycoL 3350 17 GM POWD.PACK PO SCH (09:28)
[2021-12-08] MEDS: SYMBICORT 160-4.5 MCG INHALER INHALATION SCH ×2 (09:57→21:02)
[2021-12-08 11:40] LABS: Glucose,Whole Blood 117 mg/dL (75-99)
--- NOTE | 2021-12-08 13:18 | P.PN ---
Subjective Progress Note Date: 12/08/21 Principal diagnosis: COPD exacerbation. On 12/05/2021 patient seen in follow-up on selective care unit. He is still quite congested, his bronchospastic, although breathing a bit easier compared to yesterday. He received a dose of IV Lasix yesterday, he has diabetes, lower extremity edema is improving. He is able to bring up some yellow colored phlegm. He is using incentive spirometer but needs encouragement, he is achieving 1750 ML on the today. Remains on antibiotics for strep pneumonia bacteremia, ID service is following. He is status post I&D of the left elbow. He is currently on IV Solu-Medrol 41 g every 8 hours, he is on DuoNeb, and Symbicort. Yesterday's chest x-ray is showing stable suspected COPD, minimal fibrotic changes to the left mid and lower lung zone without significant interval progression. No pleural effusion or pneumothorax. Flat plate of the abdomen showed no free air under the diaphragm, no signs of acute high-grade small bowel obstruction, no significant fecal loading. Wound cultures from the left elbow I&D have shown no organisms thus far, follow up blood cultures are negative, sputum culture has shown Alexandra albicans. Patient was reevaluated today on 12/06/2021, patient remains on the regular medical floor, he is doing fairly well, his pulmonary status seems to be intermittently waxing and waning. Today he seems to be more comfortable, less short of breath, hardly any rhonchi or wheezes. His CT of the abdomen showed no evidence of significant pulmonary disease especially on the proximal cuts were and I was able to review the left lower lobe. He has some chronic changes in the left lower lobe, no clear-cut evidence of active pneumonia at present.patient continues to have leukocytosis with the present of 22.8 hem oglobin is 13.2 lites are normal renal profile is normal. Patient is still being followed by infectious disease on the case. Reevaluated today on 12/07/21, patient is basically about the same, continues to have intermittent episodes of cough wheezing shortness of breath. His pulmonary status seems to be waxing and waning, and fluctuating from day-to-day basis. Today the patient is coughing and wheezing, he has some difficulty clearing his secretions, and on physical examination he had significant rhonchi bilaterally. Hence I explained to the patient today that we'll may have to consider br onchoscopy and airways evaluation and possibly lavage of his lungs if he continues to do so in the next 24-48 hours. WBC count is still high 20.7 hemoglobin is 13.4 events lites are normal renal profile is normal. Patient remains on 3 L nasal cannula, and his O2 saturation is 92% Progress note dated 12/08/2021. The patient is again seen today in room 351. He remains on 3 L nasal cannula. Blood cultures are showing evidence of Streptococcus pneumoniae. He's not receiving any IV fluids. The plan today is to do bronchoscopy. The patient is currently on Rocephin. No new laboratory data today. Chest x-ray shows persistent findings of COPD, and some atelectasis or infiltrate at the left lung base. Objective - Vital Signs Vital signs: Vital Signs Temp 97.8 F 12/08/21 12:13 Pulse 78 12/08/21 12:23 Resp 18 12/08/21 12:23 BP 133/60 12/08/21 12:13 Pulse Ox 95 12/08/21 12:13 Intake & Output 12/07/21 12/08/21 12/08/21 18:59 06:59 18:59 Intake Total 360 Output Total 900 500 Balance -540 -500 Intake: Oral 360 Output: Urine 900 500 Other: Voiding Method Urinal Urinal Urinal # Bowel Movements 1 - Exam No acute distress, oriented 3. Mild conversational dyspnea. Currently on 3 L nasal cannula. HEENT examination is grossly unremarkable. Neck supple. Full range of motion. No adenopathy thyromegaly or neck vein distention. Cardiovascular examination reveals regular rhythm rate. S1-S2 normal. No S3 or S4. No discernible murmur noted. Heart sounds are distant. Heart rate 78 bpm. Lungs reveal coarse bilateral rhonchi. Breath sounds are diminished. Slight prolongation. Scattered crackles. No wheezes. Breath sounds equal bilaterally but diminished throughout. 3 L saturation 95%. Abdomen soft bowel sounds are heard. No masses or tenderness. Extremities are intact. No cyanosis clubbing or edema. Skin is without rash or lesion. Neurologic examination is brief but nonfocal. - Labs CBC & Chem 7: 12/07/21 07:32 12/07/21 07:32 Labs: Abnormal Lab Results - Last 24 Hours (Table) 12/07/21 12/07/21 12/08/21 Range/Units 16:16 20:04 06:17 POC Glucose (mg/dL) 140 H 192 H 138 H (75-99) mg/dL 12/08/21 Range/Units 11:33 POC Glucose (mg/dL) 117 H (75-99) mg/dL Microbiology - Last 24 Hours (Table) 12/05/21 09:27 Blood Culture - Preliminary Blood No Growth after 72 hours 12/03/21 12:00 Anaerobic Culture - Final Elbow - Left 12/03/21 12:00 Gram Stain - Final Elbow - Left Tissue Culture - Final Assessment and Plan Assessment: Acute Streptococcus pneumoniae pneumonia with streptococcal bacteremia. Acute on chronic hypoxemic respiratory failure. Severe COPD, with an FEV1 that is 41% of predicted. Acute COPD exacerbation. History of pulmonary embolism. Benign essential hypertension. History of lumbar spondylosis and myelopathy. Left elbow laceration, requiring incision and drainage. Plan: Plan dated 12/08/2021. The plan today is to do bronchoscopy airway examination therapy lavage and BAL. Additional recommendations and suggestions are forthcoming. His may help the patient get better more quickly as it well physically remove the secretions and mucous in his airways. In addition, we'll send the sample to laboratory for analysis. No additional recommendations are made. We'll continue to follow. The patient remains on Rocephin for her streptococcal infection. Prognosis is guarded. Time with Patient: Less than 30
[2021-12-08] MEDS ORDERED: GLYCOPYRROLATE 0.2 MG/ML 2 ML VIAL ONE (13:26)
[2021-12-08] MEDS ORDERED: PROPOFOL 10 MG/ML 20 ML VIAL IV ONE (13:26)
[2021-12-08] MEDS ORDERED: MIDAZOLAM 2 MG/2 ML VIAL ONE (13:26)
[2021-12-08] MEDS ORDERED: KETAMINE 10 MG/ML 20 ML VIAL ONE (13:26)
[2021-12-08] MEDS ORDERED: IV FLUID CONTINUATION 500 ML IV ONE (13:26)
[2021-12-08] MEDS ORDERED: LIDOCAINE 2% INJ 20 MG/ML INTRATRACH ONE (13:32)
[2021-12-08] MEDS: LACTATED RINGERS 1,000 ML IV SCH (14:51)
--- NOTE | 2021-12-08 15:01 | PCN ---
PROCEDURE NOTE PULMONARY/CRITICAL CARE PROCEDURE NOTE: PROCEDURE PERFORMED: Bronchoscopy, airway examination, therapeutic lavage, BAL. OPERATORS: 1. Dr. Schuler. 2. Dr. Peacock. PREOPERATIVE DIAGNOSIS: Chronic obstructive pulmonary disease, retained secretions. POSTOPERATIVE DIAGNOSIS: Chronic obstructive pulmonary disease, retained secretions. PROCEDURE DESCRIPTION: There was informed consent and universal timeout. General anesthesia was provided by [facility] and Dr. Burns. The patient's procedure was done in [facility] room #1. After the patient was adequately sedated and being fully monitored, the bronchoscope was inserted through the nostril on the right side. It passed through the nasopharynx into the oropharynx. The hypopharynx was identified. The arytenoids appeared to be a bit inflamed. There was no gross abnormality noted in the hypopharynx. The hypopharyngeal structures were evaluated, including anterior commissure, true cords, false cords, arytenoids, piriform sinuses, right and left valleculae and epiglottis. Everything otherwise appeared normal. The glottic opening was topicalized with lidocaine. The bronchoscope was pushed through the glottic opening into the trachea. There were thick secretions noted in the mid portion to the distal trachea. They were suctioned with some difficulty, with secretions being removed with saline lavage. The right and left mainstem were topicalized. The right upper lobe and its 3 segments, right middle lobe and its 2 segments, right lower lobe and its 5 segments, the left upper lobe proper and its 2 segments, the lingula and its 2 segments, and the left lower lobe and its 4 segments were all evaluated. There were thick secretions noted throughout. There was diffuse airway erythema and hyperemia. There was some vascular permeability. The patient did have some minimal bleeding with suctioning. After all the secretions were suctioned with some difficulty, the bronchoscope was wedged into the lingula. We did a lavage. Thirty mL of fluid was recovered. The patient tolerated the procedure well. The bronchoscope was withdrawn. There was no immediate complication. The fluid will be sent for analysis. MMODL / IJN: [id number] /
--- NOTE | 2021-12-08 16:27 | P.PN ---
Subjective Progress Note Date: 12/08/21 (delayed charting seen at 0900) Principal diagnosis: cough and congestion Patient is a 76-year-old male with coronary artery disease, congestive heart failure, dementia, hypertension, and dyslipidemia along with prior pulmonary embolism maintain on Xarelto who initially presented to the ER with complaints of creasing shortness of breath. In the ER he underwent an extensive evaluation was ultimately diagnosed with pneumonia with sepsis and acute on chronic hypoxic respiratory failure. Patient was subsequently admitted. He was started on Rocephin, Zithromax, and Solu-Medrol. He was seen by pulmonary. Blood cultures came back positive for strep pneumonia. Infectious disease was consulted due to bacteremia as well as left elbow wound. Orthopedics was consulted and evaluated the patient. They felt he had presumptive left olecranon osteomyelitis with a wound that probes to exposed bone. They recommended an MRI which was unable to be obtained. Antibiotics were simplified to Rocephin. Patient underwent incision and excisional debridement of the left olecranon bone with osteomyelitis confirmed. ID recommended PICC line and IV ABX. His breathing worsened. He underwent bronchoscopy on 12/08 retained secretions. Imaging: X-ray left elbow-soft tissue wound without bony distraction no convincing radiological evidence of osteomyelitis. X-ray: Left mid and lower lung interface opacities correlate for pneumonia Patient seen and examined at bedside. Breathing is worse today, coughing more ut having a hard time getting things up, no nausea, no vomiting. arm pain is well controlled. General: non toxic, no distress, appears at stated age Derm: warm, dry Head: atraumatic, normocephalic, symmetric Eyes: EOMI, no lid lag, anicteric sclera Mouth: no lip lesion, mucus membranes moist Cardiovascular: S1S2 reg, no murmur, positive posterior tibial pulse bilateral, Lungs: ronchi bilateral , + accessory muscle use, 3 word accessory muscle use Abdominal: soft, nontender to palpation, no guarding, no appreciable organomegaly Ext: no gross muscle atrophy, no edema, no contractures, left elbow with dressing in place, R arm picc line dressing Neuro: CN II-XI grossly intact, no focal neuro deficits Psych: Alert, oriented, appropriate affect Assessment/Plan: Strep pneumonia community-acquired pneumonia Acute exacerbation of COPD Acute on chronic hypoxic respiratory failure baseline 3-4 L Strep Pneumonia Bacteremia Thrush -Pulmonary recommendations appreciated- solumedrol, bronchodilators, bronch today with retained secretions. - Back on home O2 requirements. - ID recs appreciated - Rocpehin, PICC line placed on 12/05. - Diflucan Left olecranon osteomyelitis - s/p I and D on 12/03 -Orthopedic surgery recommendations appreciated. outpatient follow-up in 10-14 days. - Discussed with ID await cultures, repeat blood cultures negative. PICC line placed outpatient rocpephin- awaiting auth History of pulmonary embolism -Xarelto Prediabetes with Hyperglycemia - Likely secondary to steroids - follow BS - Metformin on discharge Leukocytosis - follow CBC - likely due to steroid use Lactic acidosis, resolved Sepsis, resolved Abdominal Pain, improved Chronic: Chronic Congestive Heart Failure, unknown type Chronic back pain BPH Lumbar spondylolysis with myelopathy Hypertension Dyslipidemia Coronary artery disease ABX approved, had bronch today, if better in AM can again consider discharge. DVT prophylaxis: SCDs Discussed with: Patient, nursing Anticipated discharge: 1-[address]: A total of 25 minutes was spent on the care of this complex patient more than 50% of the time was spent in counseling and care coordination. Active Medications Albuterol/Ipratropium (Ipratropium-Albuterol 3 Ml Neb) 3 ml INHALATION RT-Q2H PRN PRN Reason: Shortness Of Breath Or Wheezing Last Admin: 11/27/21 03:05 Dose: 3 ml Documented by: Albuterol/Ipratropium (Ipratropium-Albuterol 3 Ml Neb) 3 ml INHALATION RT-Q4H [facility] Last Admin: 12/08/21 12:23 Dose: 3 ml Documented by: Alprazolam (Alprazolam 0.25 Mg Tab) 0.25 mg PO TID PRN PRN Reason: Anxiety Last Admin: 12/06/21 23:38 Dose: 0.25 mg Documented by: Amlodipine Besylate (Amlodipine 5 Mg Tab) 5 mg PO BID [facility] Last Admin: 12/08/21 09:25 Dose: 5 mg Documented by: Budesonide/Formoterol Fumarate (Symbicort 160-4.5 Mcg Inhaler) 2 puff INHALATION RT-BID [facility] Last Admin: 12/08/21 09:57 Dose: 2 puff Documented by: Cholecalciferol (Cholecalciferol 125 Mcg (5000 Iu) Tablet) 125 mcg PO DAILY [facility] Last Admin: 12/08/21 09:25 Dose: 125 mcg Documented by: Clonidine (Clonidine Hcl 0.2 Mg Tab) 0.2 mg PO QID PRN PRN Reason: Blood Pressure - High Last Admin: 12/02/21 07:26 Dose: 0.2 mg Documented by: Fluconazole (Fluconazole 100 Mg Tab) 100 mg PO DAILY [facility]; Protocol Last Admin: 12/08/21 09:24 Dose: 100 mg Documented by: Gabapentin (Gabapentin 300 Mg Cap) 600 mg PO TID [facility] Last Admin: 12/08/21 09:24 Dose: 600 mg Documented by: Guaifenesin (Guaifenesin Syrup 100mg/5ml 200 Mg/10 Ml Cup) 200 mg PO Q6HR [facility] Last Admin: 12/08/21 14:09 Dose: Not Given Documented by: Sodium Chloride (Saline 0.9%) 1,000 mls @ 10 mls/hr IV .Q24H [facility]; Protocol Last Admin: 12/08/21 05:43 Dose: Not Given Documented by: Ceftriaxone Sodium 2 gm/ (Sodium Chloride) 50 mls @ 100 mls/hr IVPB Q24HR [facility]; Protocol Last Admin: 12/08/21 09:25 Dose: 100 mls/hr Documented by: Lactated Ringer's (Lactated Ringers) 1,000 mls @ 20 mls/hr IV .Q24H [facility] Last Admin: 12/08/21 14:51 Dose: Not Given Documented by: Lidocaine HCl (Lidocaine 1% (10mg/Ml) For Iv Start) 0.1 ml INTRADERMA PER PROTOCOL PRN PRN Reason: IV Start Loratadine (Loratadine 10 Mg Tab) 10 mg PO DAILY [facility] Last Admin: 12/08/21 09:24 Dose: 10 mg Documented by: Methylprednisolone Sodium Succinate (Methylprednisolone Sod Succi 40 Mg/Ml 1 Ml Vial) 40 mg IV Q12HR [facility] Last Admin: 12/08/21 09:25 Dose: 40 mg Documented by: Metoprolol Tartrate (Metoprolol Tartrate 12.5 Mg Tab) 12.5 mg PO BID [facility] Last Admin: 12/08/21 09:24 Dose: 12.5 mg Documented by: Miscellaneous Information (Pneumonia Protocol Utilized 1 Each Misc) 1 each PO ONCE PRN PRN Reason: Per Protocol Oxycodone/Acetaminophen (Oxycodone-Apap 10-325mg 1 Each Tab) 1 each PO TID- W/MEALS [facility] Last Admin: 12/08/21 14:09 Dose: Not Given Documented by: Oxycodone/Acetaminophen (Oxycodone-Apap 10-325mg 1 Each Tab) 1 each PO Q6HR PRN PRN Reason: Pain Last Admin: 12/08/21 00:09 Dose: 1 each Documented by: Polyethylene Glycol (Polyethylene Glycol 3350 17 Gm Powd.Pack) 17 gm PO DAILY [facility] Last Admin: 12/08/21 09:28 Dose: Not Given Documented by: Rivaroxaban (Rivaroxaban 2.5 Mg Tablet) 2.5 mg PO BID [facility]; Protocol Last Admin: 12/08/21 09:24 Dose: 2.5 mg Documented by: Thiamine HCl (Thiamine 100 Mg Tab) 100 mg PO DAILY [facility] Last Admin: 12/08/21 09:25 Dose: 100 mg Documented by: Objective - Vital Signs Vital signs: Vital Signs Temp 97.8 F 12/08/21 12:13 Pulse 78 12/08/21 12:23 Resp 18 12/08/21 14:00 BP 133/60 12/08/21 12:13 Pulse Ox 95 12/08/21 12:13 Intake & Output 12/07/21 12/08/21 12/08/21 18:59 06:59 18:59 Intake Total 360 100 Output Total 900 500 375 Balance -540 -500 -275 Intake: IV 100 Oral 360 Output: Urine 900 500 375 Other: Voiding Method Urinal Urinal Urinal # Bowel Movements 1 - Labs CBC & Chem 7: 12/07/21 07:32 12/07/21 07:32 Labs: Abnormal Lab Results - Last 24 Hours (Table) 12/07/21 12/08/21 12/08/21 Range/Units 20:04 06:17 11:33 POC Glucose (mg/dL) 192 H 138 H 117 H (75-99) mg/dL Microbiology - Last 24 Hours (Table) 12/05/21 09:27 Blood Culture - Preliminary Blood No Growth after 72 hours 12/03/21 12:00 Anaerobic Culture - Final Elbow - Left 12/03/21 12:00 Gram Stain - Final Elbow - Left Tissue Culture - Final
[2021-12-08 16:53] LABS: Glucose,Whole Blood 145 mg/dL (75-99)
[2021-12-08 18:56] LABS: Appearance,BF Cloudy
[2021-12-08 19:01] LABS: Glucose,Whole Blood 200 mg/dL (75-99)
--- NOTE | 2021-12-08 20:55 | P.PN ---
Subjective Progress Note Date: 12/08/21 Principal diagnosis: Strep pneumo bacteremia pneumonia and a question of left elbow bursitis Patient is a 76-year-old male presented to the hospital with shortness of breath and cough with evidence of pneumonia and did have evidence of strep pneumo bacteremia, sputum has been cannula and the blood culture has been negative patient also having a problem with the left elbow which seemed to have been treated in the outpatient setting and culture were done to which I do not have any excess at this point , x-rays of the elbow did not show any bony changes. 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 On today's evaluation that is 12/08/2021, the patient remains to be afebrile, the patient is breathing comfortably on nasal cannula oxygen, patient denies chest pain, the patient did have cough with some sputum production no hemoptysis, the patient been to the left elbow is currently controlled Objective - Vital Signs Vital signs: Vital Signs Temp 97.8 F 12/08/21 12:13 Pulse 87 12/08/21 12:13 Resp 18 12/08/21 12:13 BP 133/60 12/08/21 12:13 Pulse Ox 95 12/08/21 12:13 Intake & Output 12/07/21 12/08/21 12/08/21 18:59 06:59 18:59 Intake Total 360 Output Total 900 500 Balance -540 -500 Intake: Oral 360 Output: Urine 900 500 Other: Voiding Method Urinal Urinal Urinal # Bowel Movements 1 - Exam GENERAL DESCRIPTION: An elderly male lying in bed in no distress RESPIRATORY SYSTEM: Unlabored breathing , decreased breath sounds at bases HEART: S1 S2 regular rate and rhythm , ABDOMEN: Soft , no tenderness EXTREMITIES: Left elbow is currently dressed no drainage on the dressing - Labs CBC & Chem 7: 12/07/21 07:32 12/07/21 07:32 Labs: Abnormal Lab Results - Last 24 Hours (Table) 12/07/21 12/07/21 12/08/21 Range/Units 16:16 20:04 06:17 POC Glucose (mg/dL) 140 H 192 H 138 H (75-99) mg/dL 12/08/21 Range/Units 11:33 POC Glucose (mg/dL) 117 H (75-99) mg/dL Microbiology - Last 24 Hours (Table) 12/05/21 09:27 Blood Culture - Preliminary Blood No Growth after 72 hours 12/03/21 12:00 Anaerobic Culture - Final Elbow - Left 12/03/21 12:00 Gram Stain - Final Elbow - Left Tissue Culture - Final Assessment and Plan (1) Pneumonia Current Visit: Yes Status: Acute Code(s): J18.9 - PNEUMONIA, UNSPECIFIED ORGANISM SNOMED Code(s): 694073000 Plan: 1patient with a strep pneumo bacteremia source likely pneumonia in this patient presented to hospital with increasing shortness of breath and cough and evidence of pulmonary infiltrate and elevated procalcitonin. 2patient with a left elbow wound status post I&D concerning for Osteomyelitis cultures are so far negative, patient is covered with Rocephin and will be continued in the outpatient setting 3-leukocytosis possible oropharyngeal candidiasis/thrush , white count was trending downward and down to 20,000 yesterday, no CBC was done today we'll order for tomorrow Time with Patient: Less than 30
[2021-12-09] MEDS: IPRATROPIUM-ALBUTEROL 3 ML NEB INHALATION SCH ×5 (00:09→15:43)
[2021-12-09] MEDS: SODIUM CHLORIDE 0.9% 1,000 ML IV SCH (05:14)
[2021-12-09 05:35] LABS: Glucose,Whole Blood 155 mg/dL (75-99)
[2021-12-09] MEDS: guaiFENesin SYRUP 100MG/5ML 200 MG/10 ML CUP PO SCH ×2 (06:26→12:27)
[2021-12-09] MEDS: oxyCODONE-APAP 10-325MG 1 EACH TAB PO SCH ×2 (06:38→12:27)
[2021-12-09 07:20] LABS: HCT 41.2 % (39.0-53.0); MCH 32.4 pg (25.0-35.0); MCHC 31.7 g/dL (31.0-37.0); MCV 102.2 fL (80.0-100.0); Macrocytosis Slight; Mean Platelet Volume 7.1; Platelet Count 338 k/uL (150-450); RBC 4.03 m/uL (4.30-5.90); RDW 13.1 % (11.5-15.5); WBC 14.9 k/uL (3.8-10.6)
[2021-12-09 07:28] LABS: African American GFR (CKD) >90 (>60 ml/min/1.73 sqM); Anion Gap 4 mmol/L; Blood Urea Nitrogen 29 mg/dL (9-20); Calcium 8.8 mg/dL (8.4-10.2); Carbon Dioxide 29 mmol/L (22-30); Chloride 102 mmol/L (98-107); Glucose 157 mg/dL (74-99); Magnesium 2.3 mg/dL (1.6-2.3); Non-African American GFR(CKD) 86 (>60 ml/min/1.73 sqM); Potassium 4.7 mmol/L (3.5-5.1); Sodium 135 mmol/L (137-145)
[2021-12-09] MEDS: SYMBICORT 160-4.5 MCG INHALER INHALATION SCH (08:33)
--- NOTE | 2021-12-09 10:21 | P.PN ---
Subjective Progress Note Date: 12/09/21 Principal diagnosis: COPD exacerbation. On 12/05/2021 patient seen in follow-up on selective care unit. He is still quite congested, his bronchospastic, although breathing a bit easier compared to yesterday. He received a dose of IV Lasix yesterday, he has diabetes, lower extremity edema is improving. He is able to bring up some yellow colored phlegm. He is using incentive spirometer but needs encouragement, he is achieving 1750 ML on the today. Remains on antibiotics for strep pneumonia bacteremia, ID service is following. He is status post I&D of the left elbow. He is currently on IV Solu-Medrol 41 g every 8 hours, he is on DuoNeb, and Symbicort. Yesterday's chest x-ray is showing stable suspected COPD, minimal fibrotic changes to the left mid and lower lung zone without significant interval progression. No pleural effusion or pneumothorax. Flat plate of the abdomen showed no free air under the diaphragm, no signs of acute high-grade small bowel obstruction, no significant fecal loading. Wound cultures from the left elbow I&D have shown no organisms thus far, follow up blood cultures are negative, sputum culture has shown Alexandra albicans. Patient was reevaluated today on 12/06/2021, patient remains on the regular medical floor, he is doing fairly well, his pulmonary status seems to be intermittently waxing and waning. Today he seems to be more comfortable, less short of breath, hardly any rhonchi or wheezes. His CT of the abdomen showed no evidence of significant pulmonary disease especially on the proximal cuts were and I was able to review the left lower lobe. He has some chronic changes in the left lower lobe, no clear-cut evidence of active pneumonia at present.patient continues to have leukocytosis with the present of 22.8 hem oglobin is 13.2 lites are normal renal profile is normal. Patient is still being followed by infectious disease on the case. Reevaluated today on 12/07/21, patient is basically about the same, continues to have intermittent episodes of cough wheezing shortness of breath. His pulmonary status seems to be waxing and waning, and fluctuating from day-to-day basis. Today the patient is coughing and wheezing, he has some difficulty clearing his secretions, and on physical examination he had significant rhonchi bilaterally. Hence I explained to the patient today that we'll may have to consider br onchoscopy and airways evaluation and possibly lavage of his lungs if he continues to do so in the next 24-48 hours. WBC count is still high 20.7 hemoglobin is 13.4 events lites are normal renal profile is normal. Patient remains on 3 L nasal cannula, and his O2 saturation is 92% Progress note dated 12/08/2021. The patient is again seen today in room 351. He remains on 3 L nasal cannula. Blood cultures are showing evidence of Streptococcus pneumoniae. He's not receiving any IV fluids. The plan today is to do bronchoscopy. The patient is currently on Rocephin. No new laboratory data today. Chest x-ray shows persistent findings of COPD, and some atelectasis or infiltrate at the left lung base. Progress note dated 12/09/2021. 76-year-old male seen in room 351. He is feeling much better today. He remains on 3 L nasal cannula. The patient had bronchoscopy, BAL, airway examination, and therapeutic lavage yesterday. His airways were full with thick viscid mucous. Samples were sent to laboratory for analysis. Laboratory data today includes a white count of 14.9, he will been 13, hematocrit 41.2, and platelet count 338,000. Sodium 135, potassium 4.7, chlorides 102, CO2 29, with BUN of 29 and a creatinine of 0.81. Microbiologic studies from the bronchoscopy, are currently pending or negative. Objective - Vital Signs Vital signs: Vital Signs Temp 98.2 F 12/09/21 07:51 Pulse 86 12/09/21 07:51 Resp 22 12/09/21 09:06 BP 147/67 12/09/21 07:51 Pulse Ox 95 12/09/21 07:51 Intake & Output 12/08/21 12/09/21 12/09/21 18:59 06:59 18:59 Intake Total 580 360 Output Total 375 800 Balance 205 -800 360 Intake: IV 100 Oral 480 360 Output: Urine 375 800 Other: Voiding Method Urinal Urinal # Voids 500 1 - Exam No acute distress, oriented 3. Currently on 2 L nasal cannula. Saturations are 95%. HEENT examination is grossly unremarkable. Neck supple. Full range of motion. No adenopathy thyromegaly or neck vein distention. Cardiovascular examination reveals regular rhythm rate. S1-S2 normal. No S3 or S4. No discernible murmur noted. Heart sounds are distant. Heart rate 86 bpm. Lungs reveal coarse bilateral rhonchi. Breath sounds are diminished. Slight prolongation. Scattered crackles. No wheezes. Breath sounds equal bilaterally but diminished throughout. Breath sounds are improved. Abdomen soft bowel sounds are heard. No masses or tenderness. Extremities are intact. No cyanosis clubbing or edema. Skin is without rash or lesion. Neurologic examination is brief but nonfocal. - Labs CBC & Chem 7: 12/09/21 06:10 12/09/21 06:10 Labs: Abnormal Lab Results - Last 24 Hours (Table) 12/08/21 12/08/21 12/08/21 Range/Units 11:33 16:38 18:59 WBC (3.8-10.6) k/uL RBC (4.30-5.90) m/uL MCV (80.0-100.0) fL Sodium (137-145) mmol/L BUN (9-20) mg/dL Glucose (74-99) mg/dL POC Glucose (mg/dL) 117 H 145 H 200 H (75-99) mg/dL 12/09/21 12/09/21 12/09/21 Range/Units 05:33 06:10 06:10 WBC 14.9 H (3.8-10.6) k/uL RBC 4.03 L (4.30-5.90) m/uL MCV 102.2 H (80.0-100.0) fL Sodium 135 L (137-145) mmol/L BUN 29 H (9-20) mg/dL Glucose 157 H (74-99) mg/dL POC Glucose (mg/dL) 155 H (75-99) mg/dL Microbiology - Last 24 Hours (Table) 12/08/21 13:30 Gram Stain - Preliminary Bronchial Washings - Random Bronchial Washings Culture - Preliminary 12/08/21 13:30 Fungal Culture - Preliminary Bronchial Washings - Random 12/08/21 13:30 Acid Fast Bacilli Culture - Preliminary Bronchial Washings - Random 12/05/21 09:27 Blood Culture - Preliminary Blood No Growth after 72 hours Assessment and Plan Assessment: Acute Streptococcus pneumoniae pneumonia with streptococcal bacteremia. Status post bronchoscopy, airway examination, therapeutic lavage, and BAL of the lingula, 12/08/2021. Acute on chronic hypoxemic respiratory failure. Severe COPD, with an FEV1 that is 41% of predicted. Acute COPD exacerbation. History of pulmonary embolism. Benign essential hypertension. History of lumbar spondylosis and myelopathy. Left elbow laceration, requiring incision and drainage. Plan: Plan dated 12/08/2021. The plan today is to do bronchoscopy airway examination therapy lavage and BAL. Additional recommendations and suggestions are forthcoming. His may help the patient get better more quickly as it well physically remove the secretions and mucous in his airways. In addition, we'll send the sample to laboratory for analysis. No additional recommendations are made. We'll continue to follow. The patient remains on Rocephin for her streptococcal infection. Prognosis is guarded. Plan dated 12/09/2021. The patient had bronchoscopy yesterday. He had very thick this in secretions within the airways. There were suctioned. A sample was sent to laboratory for analysis. Clinically, the patient feels better today. He is down to 2 L. From my perspective, the patient could be considered for possible discharge. Results from the bronchoscopy, currently pending. He remains on ceftriaxone. We will continue to follow make recommendations where appropriate. Prognosis is guarded. He should follow-up with me post discharge. Time with Patient: Less than 30
[2021-12-09] MEDS: polyethylene glycoL 3350 17 GM POWD.PACK PO SCH (10:32)
[2021-12-09] MEDS: amLODIPine 5 MG TAB PO SCH (10:45)
[2021-12-09] MEDS: CHOLECALCIFEROL 125 MCG (5000 IU) TABLET PO SCH (10:46)
[2021-12-09] MEDS: FLUCONAZOLE 100 MG TAB PO SCH (10:47)
[2021-12-09] MEDS: GABAPENTIN 300 MG CAP PO SCH (10:47)
[2021-12-09] MEDS: LORATADINE 10 MG TAB PO SCH (10:47)
[2021-12-09] MEDS: methylPREDNISolone SOD SUCCI 40 MG/ML 1 ML VIAL IV SCH (10:47)
[2021-12-09] MEDS: METOPROLOL TARTRATE 12.5 MG TAB PO SCH (10:48)
[2021-12-09] MEDS: RIVAROXABAN 2.5 MG TABLET PO SCH (10:48)
[2021-12-09] MEDS: THIAMINE 100 MG TAB PO SCH (10:48)
[2021-12-09 11:43] LABS: Glucose,Whole Blood 121 mg/dL (75-99)
[2021-12-09 11:48] VITALS: BP 151/62; RESP 24; TEMP 97.7
[2021-12-09] MEDS: LACTATED RINGERS 1,000 ML IV SCH (14:27)
[2021-12-09 15:55] VITALS: PULSE 77
--- NOTE | 2021-12-11 09:26 | CDI ---
Documentation Clarification Form Date: 12/11/21 From: Xenia Choi Admit Date: 11/24/2021 08:15:00 PM Patient Name: Ricki Hess Visit Number: [id number] Discharge Date: 12/09/2021 04:23:00 PM ATTENTION: The Clinical Documentation Specialists (CDI) and [facility] Coding Staff appreciate your assistance in clarifying documentation. Please respond to the clarification below the line at the bottom and electronically sign. The CDI & [facility] Coding staff will review the response and follow-up if needed. Please note: Queries are made part of the Legal Health Record. If you have any questions, please contact the author of this message via ITS. Dr. Brady Marina, Osteomyelitis is documented in the your consult, PNs & operative report. Additional clarification regarding the cause and acuity of the osteomyelitis is requested. 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 Per op: A ronguer was then utilized to debride non- viable bone, upon removal bone was found to be soft. 11/27 Labs: WBC 23.5, Neutrophils 22.6, CRP 2.6, Lactic acid (11/28) 4.4 X-Ray Results: Soft tissue wound extends to the dorsal surface of the olecranon without bony destruction. No convincing radiographic evidence for acute osteomyelitis. Treatment: Incision and excisional debridement of left olecranon bone osteomyelitis with bone cultures. IV antibiotics post-hospitalization Please clarify the acuity of the osteomyelitis, if known: Acuity: [ ] Acute osteomyelitis [ ] Chronic osteomyelitis [x ] Subacute osteomyelitis [ ] Unable to Determine MTDD
--- NOTE | 2021-12-16 23:57 | P.PN ---
Subjective Progress Note Date: 12/09/21 Principal diagnosis: Strep pneumo bacteremia pneumonia and a question of left elbow bursitis Patient is a 76-year-old male presented to the hospital with shortness of breath and cough with evidence of pneumonia and did have evidence of strep pneumo bacteremia, sputum has been cannula and the blood culture has been negative patient also having a problem with the left elbow which seemed to have been treated in the outpatient setting and culture were done to which I do not have any excess at this point , x-rays of the elbow did not show any bony changes. 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 On today's evaluation that is 12/09/2021, the patient continues to be afebrile, the patient is breathing comfortably on nasal cannula oxygen, patient denies chest pain, the patient cough is decreased intensity and less productive, the patient pain to the left elbow is currently controlled Objective - Vital Signs Vital signs: Vital Signs Temp 97.7 F 12/09/21 11:47 Pulse 82 12/09/21 11:53 Resp 24 12/09/21 11:47 BP 151/62 12/09/21 11:47 Pulse Ox 100 12/09/21 11:47 Intake & Output 12/08/21 12/09/21 12/09/21 18:59 06:59 18:59 Intake Total 580 360 Output Total 375 800 Balance 205 -800 360 Intake: IV 100 Oral 480 360 Output: Urine 375 800 Other: Voiding Method Urinal Urinal # Voids 500 1 - Exam GENERAL DESCRIPTION: An elderly male lying in bed in no distress RESPIRATORY SYSTEM: Unlabored breathing , decreased breath sounds at bases HEART: S1 S2 regular rate and rhythm , ABDOMEN: Soft , no tenderness EXTREMITIES: Left elbow is currently dressed no drainage on the dressing - Labs CBC & Chem 7: 12/09/21 06:10 12/09/21 06:10 Labs: Abnormal Lab Results - Last 24 Hours (Table) 12/08/21 12/08/21 12/09/21 Range/Units 16:38 18:59 05:33 WBC (3.8-10.6) k/uL RBC (4.30-5.90) m/uL MCV (80.0-100.0) fL Sodium (137-145) mmol/L BUN (9-20) mg/dL Glucose (74-99) mg/dL POC Glucose (mg/dL) 145 H 200 H 155 H (75-99) mg/dL 12/09/21 12/09/21 12/09/21 Range/Units 06:10 06:10 11:38 WBC 14.9 H (3.8-10.6) k/uL RBC 4.03 L (4.30-5.90) m/uL MCV 102.2 H (80.0-100.0) fL Sodium 135 L (137-145) mmol/L BUN 29 H (9-20) mg/dL Glucose 157 H (74-99) mg/dL POC Glucose (mg/dL) 121 H (75-99) mg/dL Microbiology - Last 24 Hours (Table) 12/05/21 09:27 Blood Culture - Preliminary Blood No Growth after 96 hours 12/08/21 13:30 Gram Stain - Preliminary Bronchial Washings - Random Bronchial Washings Culture - Preliminary 12/08/21 13:30 Fungal Culture - Preliminary Bronchial Washings - Random 12/08/21 13:30 Acid Fast Bacilli Culture - Preliminary Bronchial Washings - Random Assessment and Plan (1) Pneumonia Status: Acute Code(s): J18.9 - PNEUMONIA, UNSPECIFIED ORGANISM SNOMED Code(s): 235307840 Plan: 1patient with a strep pneumo bacteremia source likely pneumonia in this patient presented to hospital with increasing shortness of breath and cough and evidence of pulmonary infiltrate and elevated procalcitonin. 2patient with a left elbow wound status post I&D concerning for Osteomyelitis cultures are so far negative, patient is covered with Rocephin and will be cont inued in the outpatient setting to finish a 6 week course of therapy and close outpatient follow up 3-leukocytosis possible oropharyngeal candidiasis/thrush , white count was trending downward and will continue with the nystatin swish and swallow Time with Patient: Less than 30
== END 2021-12-09 16:23 | disposition home health service (06) | DRG 853 ==
LOC: EC 16:48 → 3SCARD 20:15
PROVIDERS: ADMIT Internal Medicine; ATTEND Internal Medicine
PROC: 0PBL0ZZ Excision of Left Ulna, Open Approach (ICD-10-PCS; principal; 2021-12-03 10:30)
PROC: 02HV33Z Insertion of Infusion Device into Superior Vena Cava, Percutaneous Approach (ICD-10-PCS; 2021-12-05)
PROC: 0B9G8ZZ Drainage of Left Upper Lung Lobe, Via Natural or Artificial Opening Endoscopic (ICD-10-PCS; 2021-12-08 07:50)
PROC: 0B9C8ZZ Drainage of Right Upper Lung Lobe, Via Natural or Artificial Opening Endoscopic (ICD-10-PCS; 2021-12-08 07:50)
PROC: 0B918ZZ Drainage of Trachea, Via Natural or Artificial Opening Endoscopic (ICD-10-PCS; 2021-12-08 07:50)
PROC: 0B9H8ZX Drainage of Lung Lingula, Via Natural or Artificial Opening Endoscopic, Diagnostic (ICD-10-PCS; 2021-12-08 07:50)
DX: A40.3 Sepsis due to Streptococcus pneumoniae (principal); J13 Pneumonia due to Streptococcus pneumoniae; J96.21 Acute and chronic respiratory failure with hypoxia; N17.0 Acute kidney failure with tubular necrosis; E87.2 Acidosis; B37.0 Candidal stomatitis; J44.1 Chronic obstructive pulmonary disease with (acute) exacerbation; J44.0 Chronic obstructive pulmonary disease with (acute) lower respiratory infection; M47.16 Other spondylosis with myelopathy, lumbar region; I50.32 Chronic diastolic (congestive) heart failure; M86.28 Subacute osteomyelitis, other site; E11.41 Type 2 diabetes mellitus with diabetic mononeuropathy; I27.20 Pulmonary hypertension, unspecified; I95.9 Hypotension, unspecified; E11.69 Type 2 diabetes mellitus with other specified complication; I11.0 Hypertensive heart disease with heart failure; F03.90 Unspecified dementia, unspecified severity, without behavioral disturbance, psychotic disturbance, mood disturbance, and anxiety; E11.65 Type 2 diabetes mellitus with hyperglycemia; F10.21 Alcohol dependence, in remission; Z20.822 Contact with and (suspected) exposure to COVID-19; S51.012A Laceration without foreign body of left elbow, initial encounter; M71.122 Other infective bursitis, left elbow; I65.29 Occlusion and stenosis of unspecified carotid artery; E86.0 Dehydration; I25.10 Atherosclerotic heart disease of native coronary artery without angina pectoris; E78.5 Hyperlipidemia, unspecified; I25.2 Old myocardial infarction; I49.3 Ventricular premature depolarization; F41.9 Anxiety disorder, unspecified; N32.81 Overactive bladder; K44.9 Diaphragmatic hernia without obstruction or gangrene; K64.9 Unspecified hemorrhoids; G89.29 Other chronic pain; M54.6 Pain in thoracic spine; B35.1 Tinea unguium; K21.9 Gastro-esophageal reflux disease without esophagitis; N40.0 Benign prostatic hyperplasia without lower urinary tract symptoms; T38.0X5A Adverse effect of glucocorticoids and synthetic analogues, initial encounter; R25.1 Tremor, unspecified; M79.672 Pain in left foot; M79.671 Pain in right foot; R29.6 Repeated falls; M19.90 Unspecified osteoarthritis, unspecified site; Z79.01 Long term (current) use of anticoagulants; Z99.81 Dependence on supplemental oxygen; Z79.891 Long term (current) use of opiate analgesic; Z79.51 Long term (current) use of inhaled steroids; Z79.52 Long term (current) use of systemic steroids; Z79.899 Other long term (current) drug therapy; Z87.01 Personal history of pneumonia (recurrent); Z91.81 History of falling; Z86.711 Personal history of pulmonary embolism; Z86.73 Personal history of transient ischemic attack (TIA), and cerebral infarction without residual deficits; Z87.81 Personal history of (healed) traumatic fracture; Z87.39 Personal history of other diseases of the musculoskeletal system and connective tissue; Z90.49 Acquired absence of other specified parts of digestive tract; Z87.19 Personal history of other diseases of the digestive system; Z87.891 Personal history of nicotine dependence; Z98.890 Other specified postprocedural states; Z91.02 Food additives allergy status; Z86.59 Personal history of other mental and behavioral disorders; Z80.8 Family history of malignant neoplasm of other organs or systems; Z80.3 Family history of malignant neoplasm of breast
CPT/HCPCS: 31624; 31645; 36415; 36573; 71045; 71046; 74019; 74176; 80048; 80053; 83036; 83605; 83735; 83880; 84145; 84484; 85025; 85027; 85379; 85610; 85652; 85730; 86140; 87040; 87070; 87075; 87077; 87102; 87116; 87186; 87205; 87206; 87252; 87449; 87496; 87498; 87502; 87529; 87634; 87635; 87798; 88108; 88305; 89050; 93005; 93306; 94640; 94667; 94668; 94760; 96361; 96365; 96366; 96375; 99291

== ENCOUNTER 2022-06-01 14:31 | Emergency (ER) | payer MEDICARE ==
[2022-06-01 15:05] LABS: Basophils # (A) 0.1 k/uL (0-0.2); Basophils % (A) 1 %; Eosinophils # (A) 0.1 k/uL (0-0.7); Eosinophils % (A) 0 %; HCT 42.1 % (39.0-53.0); HGB 13.9 gm/dL (13.0-17.5); Lymphocytes # (A) 1.3 k/uL (1.0-4.8); Lymphocytes % (A) 12 %; MCH 30.6 pg (25.0-35.0); MCV 92.7 fL (80.0-100.0); Mean Platelet Volume 7.3; Monocytes # (A) 0.4 k/uL (0-1.0); Monocytes % (A) 3 %; Neutrophils # (A) 8.8 k/uL (1.3-7.7); Neutrophils % (A) 83 %; Platelet Count 378 k/uL (150-450); RBC 4.54 m/uL (4.30-5.90); RDW 13.1 % (11.5-15.5); WBC 10.7 k/uL (3.8-10.6)
[2022-06-01 15:16] LABS: ALT 33 U/L (4-49); AST 32 U/L (17-59); African American GFR (CKD) >90 (>60 ml/min/1.73 sqM); Albumin 4.5 g/dL (3.5-5.0); Alkaline Phosphatase 87 U/L (38-126); Anion Gap 12 mmol/L; Blood Urea Nitrogen 19 mg/dL (9-20); Calcium 9.7 mg/dL (8.4-10.2); Carbon Dioxide 23 mmol/L (22-30); Chloride 103 mmol/L (98-107); Glucose 113 mg/dL (74-99); Non-African American GFR(CKD) 81 (>60 ml/min/1.73 sqM); Potassium 4.7 mmol/L (3.5-5.1); Sodium 138 mmol/L (137-145); Total Bilirubin 0.6 mg/dL (0.2-1.3)
--- NOTE | 2022-06-01 15:20 | XR ---
EXAMINATION TYPE: XR chest 2V DATE OF EXAM: 06/01/2022 3:16 PM COMPARISON: Chest radiographs from 12/08/2021. TECHNIQUE: XR chest 2V Frontal and lateral views of the chest. CLINICAL INDICATION:Male, 76 years old with history of Cough; FINDINGS: Lungs/Pleura: There is flattening of the diaphragm with increased lucency of the lungs. No evidence o f pneumothorax, pleural effusion or focal consolidation. Left apical parenchymal thickening. Pulmonary vascularity: Unremarkable. Heart/mediastinum: Cardiomediastinal silhouette is unremarkable. Atherosclerotic calcifications are seen in the aorta. Musculoskeletal: No acute osseous pathology. IMPRESSION: 1. No acute cardiopulmonary disease process. 2. COPD changes.
[2022-06-01 15:29] LABS: Partial Thromboplastin Time 28.3 sec (22.0-30.0)
[2022-06-01] MEDS ORDERED: AZITHROMYCIN 500 MG in SODIUM CHLORIDE 0.9% 250 ML IVPB STA (16:03)
[2022-06-01] MEDS ORDERED: IPRATROPIUM-ALBUTEROL 3 ML NEB INHALATION STA ×2 (16:03→17:22)
[2022-06-01] MEDS ORDERED: methylPREDNISolone SOD SUCCI 125 MG/2 ML VIAL IV STA (16:03)
--- NOTE | 2022-06-01 18:02 | ED ---
SOB HPI - General Chief Complaint: Shortness of Breath Stated Complaint: pneumonia Time Seen by Provider: 06/01/22 15:53 Source: patient Mode of arrival: wheelchair Limitations: no limitations - History of Present Illness Initial Comments: Patient is a 76-year-old male with a past medical history of COPD who presents to the emergency department with concern for pneumonia. Patient states he has had productive cough for the past 3 weeks and his pet walker Dr. Schuler had concern for pneumonia so he was sent to the emergency department. Reports yello w sputum. Patient feels more short of breath than his normal. He wears 4 L of oxygen via nasal cannula at home. He has been using breathing treatments at home with his nebulizer. He denies fever, chills, headache, runny nose, chest pain, abdominal pain, nausea, vomiting. Denies recent sick contacts. - Related Data Home Medications Medication Instructions Recorded Confirmed Cholecalciferol [Vitamin D3 (125 125 mcg PO DAILY 11/24/21 11/24/21 Mcg = 5000 Iu)] Gabapentin [Neurontin] 600 mg PO TID 11/24/21 11/24/21 Rivaroxaban [Xarelto] 2.5 mg PO BID 11/24/21 11/24/21 oxyCODONE-APAP 10-325MG [Percocet 1 tab PO TID-W/MEALS 11/24/21 11/24/21 10-325 mg] Previous Rx's Medication Instructions Recorded Budesonide-Formot 160-4.5 Mcg 2 puff INHALATION RT-BID #0 each 12/09/21 [Symbicort 160-4.5 Mcg Inhaler] Ipratropium-Albuterol Nebulize 3 ml INHALATION RT-Q4H ml 12/09/21 [Duoneb 0.5 mg-3 mg/3 ml Soln] Metoprolol Tartrate [Lopressor] 12.5 mg PO BID tab 12/09/21 amLODIPine [Norvasc] 5 mg PO BID tab 12/09/21 cefTRIAXone [Rocephin] 2 gm IVPB Q24HR each 12/09/21 predniSONE 10 mg PO DIRECTED #30 tab 12/09/21 Azithromycin [Zithromax] 250 mg PO DIRECTED #6 tab 06/01/22 predniSONE 50 mg PO DAILY #5 tab 06/01/22 Allergies Allergy/AdvReac Type Severity Reaction Status Date / Time caffeine AdvReac Diarrhea Verified 06/01/22 14:42 Review of Systems ROS Statement: Those systems with pertinent positive or pertinent negative responses have been documented in the HPI. ROS Other: All systems not noted in ROS Statement are negative. Past Medical History Past Medical History: Coronary Artery Disease (CAD), Heart Failure, COPD, CVA/TIA, Dementia, GERD/Reflux, Hyperlipidemia, Hypertension, Memory Impairment, Myocardial Infarction (MO), Osteoarthritis (OA), Pneumonia, Pulmonary Embolus (PE), Syncope Additional Past Medical History / Comment(s): chronic COPD, home oxygen at 3L/NC ATC, possibly past MIs/EKG, tia,hemorrhoids, small hiatal hernia, overactive bladder, 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 Last Myocardial Infarction Date:: unknown History of Any Multi-Drug Resistant Organisms: None Reported Past Surgical History: Appendectomy, Back Surgery Additional Past Surgical History / Comment(s): EGD with bx/colonoscopy with bx, bronchoscopy, low back surgery, PICC-since removed. Past Anesthesia/Blood Transfusion Reactions: No Reported Reaction Additional Past Anesthesia/Blood Transfusion Reaction / Comment(s): Pt has never received blood. Past Psychological History: Anxiety, Depression Smoking Status: Former smoker Past Alcohol Use History: None Reported Past Drug Use History: None Reported - Past Family History Father Family Medical History: Cancer Additional Family Medical History / Comment(s): Father had throat cancer. Mother Family Medical History: Cancer Additional Family Medical History / Comment(s): Mother had breast cancer. General Exam Limitations: no limitations General appearance: alert, in no apparent distress Eye exam: Present: normal appearance, PERRL, EOMI. Absent: scleral icterus, conjunctival injection, periorbital swelling Respiratory exam: Present: normal lung sounds bilaterally, rhonchi (upper airway). Absent: respiratory distress, wheezes, rales, stridor, accessory muscle use, decreased breath sounds Cardiovascular Exam: Present: regular rate, normal rhythm, normal heart sounds. Absent: systolic murmur, diastolic murmur, rubs, gallop, clicks Extremities exam: Present: normal capillary refill. Absent: pedal edema Neurological exam: Present: alert, oriented X3, CN II-XII intact Psychiatric exam: Present: normal affect, normal mood Skin exam: Present: warm, dry, intact, normal color. Absent: rash Course Vital Signs 06/01/22 06/01/22 06/01/22 14:39 16:24 16:33 Temperature 98.1 F Pulse Rate 119 H 78 82 Respiratory 24 Rate Blood Pressure 139/78 O2 Sat by Pulse 98 Oximetry 06/01/22 06/01/22 06/01/22 17:50 18:02 18:11 Temperature 98.2 F Pulse Rate 87 86 88 Respiratory 20 Rate Blood Pressure 139/74 O2 Sat by Pulse 98 Oximetry Medical Decision Making - Medical Decision Making This is a 76-year-old male with COPD presenting with shortness of breath and productive cough. Patient is well-appearing. There is no increased work of breathing or respiratory distress. There is no hypoxia. Oxygen saturation is 98% on 4 L nasal cannula. Laboratory studies obtained and are relatively unremarkable. COVID-19 and influenza are not detected. Chest x-ray shows COPD changes without pneumonia. Patient given multiple breathing treatments, Solu-Medrol, azithromycin in the emergency department. Rhonchi improved after breathing treatments. Patient will be discharged with Z-French and prednisone. Patient states he takes 10 mg of prednisone daily. We discussed cessation of this prescription until 5 days of prednisone prescribed today is finished. Patient will continue breathing treatments at home. Strict return parameters discussed. Dr. Peralta is my attending. - Lab Data Result diagrams: 06/01/22 14:43 06/01/22 14:43 Lab Results 06/01/22 06/01/22 06/01/22 Range/Units 14:43 14:43 14:43 WBC 10.7 H (3.8-10.6) k/uL RBC 4.54 (4.30-5.90) m/uL Hgb 13.9 (13.0-17.5) gm/dL Hct 42.1 (39.0-53.0) % MCV 92.7 (80.0-100.0) fL MCH 30.6 (25.0-35.0) pg MCHC 33.0 (31.0-37.0) g/dL RDW 13.1 (11.5-15.5) % Plt Count 378 (150-450) k/uL MPV 7.3 Neutrophils % 83 % Lymphocytes % 12 % Monocytes % 3 % Eosinophils % 0 % Basophils % 1 % Neutrophils # 8.8 H (1.3-7.7) k/uL Lymphocytes # 1.3 (1.0-4.8) k/uL Monocytes # 0.4 (0-1.0) k/uL Eosinophils # 0.1 (0-0.7) k/uL Basophils # 0.1 (0-0.2) k/uL PT 11.0 (9.0-12.0) sec INR 1.0 (<1.2) APTT 28.3 (22.0-30.0) sec Sodium 138 (137-145) mmol/L Potassium 4.7 (3.5-5.1) mmol/L Chloride 103 (98-107) mmol/L Carbon Dioxide 23 (22-30) mmol/L Anion Gap 12 mmol/L BUN 19 (9-20) mg/dL Creatinine 0.91 (0.66-1.25) mg/dL Est GFR (CKD-EPI)AfAm >90 (>60 ml/min/1.73 sqM) Est GFR (CKD-EPI)NonAf 81 (>60 ml/min/1.73 sqM) Glucose 113 H (74-99) mg/dL Plasma Lactic Acid Paco (0.7-2.0) mmol/L Calcium 9.7 (8.4-10.2) mg/dL Total Bilirubin 0.6 (0.2-1.3) mg/dL AST 32 (17-59) U/L ALT 33 (4-49) U/L Alkaline Phosphatase 87 (38-126) U/L Troponin I (0.000-0.034) ng/mL Total Protein 7.0 (6.3-8.2) g/dL Albumin 4.5 (3.5-5.0) g/dL Coronavirus (PCR) (Not Detectd) Influenza Type A RNA (Not Detectd) Influenza Type B (PCR) (Not Detectd) 06/01/22 06/01/22 06/01/22 Range/Units 14:43 14:57 16:22 WBC (3.8-10.6) k/uL RBC (4.30-5.90) m/uL Hgb (13.0-17.5) gm/dL Hct (39.0-53.0) % MCV (80.0-100.0) fL MCH (25.0-35.0) pg MCHC (31.0-37.0) g/dL RDW (11.5-15.5) % Plt Count (150-450) k/uL MPV Neutrophils % % Lymphocytes % % Monocytes % % Eosinophils % % Basophils % % Neutrophils # (1.3-7.7) k/uL Lymphocytes # (1.0-4.8) k/uL Monocytes # (0-1.0) k/uL Eosinophils # (0-0.7) k/uL Basophils # (0-0.2) k/uL PT (9.0-12.0) sec INR (<1.2) APTT (22.0-30.0) sec Sodium (137-145) mmol/L Potassium (3.5-5.1) mmol/L Chloride (98-107) mmol/L Carbon Dioxide (22-30) mmol/L Anion Gap mmol/L BUN (9-20) mg/dL Creatinine (0.66-1.25) mg/dL Est GFR (CKD-EPI)AfAm (>60 ml/min/1.73 sqM) Est GFR (CKD-EPI)NonAf (>60 ml/min/1.73 sqM) Glucose (74-99) mg/dL Plasma Lactic Acid Paco 1.7 (0.7-2.0) mmol/L Calcium (8.4-10.2) mg/dL Total Bilirubin (0.2-1.3) mg/dL AST (17-59) U/L ALT (4-49) U/L Alkaline Phosphatase (38-126) U/L Troponin I <0.012 (0.000-0.034) ng/mL Total Protein (6.3-8.2) g/dL Albumin (3.5-5.0) g/dL Coronavirus (PCR) (Not Detectd) Influenza Type A RNA Not Detected (Not Detectd) Influenza Type B (PCR) Not Detected (Not Detectd) 06/01/22 Range/Units 16:22 WBC (3.8-10.6) k/uL RBC (4.30-5.90) m/uL Hgb (13.0-17.5) gm/dL Hct (39.0-53.0) % MCV (80.0-100.0) fL MCH (25.0-35.0) pg MCHC (31.0-37.0) g/dL RDW (11.5-15.5) % Plt Count (150-450) k/uL MPV Neutrophils % % Lymphocytes % % Monocytes % % Eosinophils % % Basophils % % Neutrophils # (1.3-7.7) k/uL Lymphocytes # (1.0-4.8) k/uL Monocytes # (0-1.0) k/uL Eosinophils # (0-0.7) k/uL Basophils # (0-0.2) k/uL PT (9.0-12.0) sec INR (<1.2) APTT (22.0-30.0) sec Sodium (137-145) mmol/L Potassium (3.5-5.1) mmol/L Chloride (98-107) mmol/L Carbon Dioxide (22-30) mmol/L Anion Gap mmol/L BUN (9-20) mg/dL Creatinine (0.66-1.25) mg/dL Est GFR (CKD-EPI)AfAm (>60 ml/min/1.73 sqM) Est GFR (CKD-EPI)NonAf (>60 ml/min/1.73 sqM) Glucose (74-99) mg/dL Plasma Lactic Acid Paco (0.7-2.0) mmol/L Calcium (8.4-10.2) mg/dL Total Bilirubin (0.2-1.3) mg/dL AST (17-59) U/L ALT (4-49) U/L Alkaline Phosphatase (38-126) U/L Troponin I (0.000-0.034) ng/mL Total Protein (6.3-8.2) g/dL Albumin (3.5-5.0) g/dL Coronavirus (PCR) Not Detected (Not Detectd) Influenza Type A RNA (Not Detectd) Influenza Type B (PCR) (Not Detectd) Disposition Clinical Impression: COPD exacerbation, Shortness of breath, Cough with sputum Disposition: HOME SELF-CARE Condition: Good Instructions (If sedation given, give patient instructions): Emphysema (ED), COPD (Chronic Obstructive Pulmonary Disease) (ED), Chronic Bronchitis (ED) Additional Instructions: Take medication as directed. Continue [id number] breathing treatments at home until cough improves. Follow-up with pulmonary doctor in one to 2 days. Return to emergency department experience new, concerning, or worsening symptoms. Prescriptions: predniSONE 50 mg PO DAILY #5 tab Azithromycin [Zithromax] 250 mg PO DIRECTED #6 tab Is patient prescribed a controlled substance at d/c from ED?: No Referrals: Maximiliano Walden MD [Primary Care Provider] - 1-2 days Time of Disposition: 18:02
[2022-06-01 18:12] VITALS: BP 139/74; PULSE 88; RESP 20; TEMP 98.2
== END 2022-06-01 18:40 | disposition home or self-care (01) ==
LOC: EEVIPCON 14:31 → EC 14:31
DX: J44.1 Chronic obstructive pulmonary disease with (acute) exacerbation (principal); Z20.822 Contact with and (suspected) exposure to COVID-19; I11.0 Hypertensive heart disease with heart failure; H44.9 Unspecified disorder of globe; E78.5 Hyperlipidemia, unspecified; Z87.891 Personal history of nicotine dependence; Z88.8 Allergy status to other drugs, medicaments and biological substances
CPT/HCPCS: 36415; 94640 ×2; 93005; 80053; 83605; 84484; 85025; 85610; 85730; 87502; 87635; 71046; 99285; 96365; 96366; J2930; J0456

== ENCOUNTER 2022-12-09 06:55 | Inpatient (IN) | payer MEDICARE ==
--- NOTE | 2022-12-09 07:12 | ED ---
General Adult HPI - General Chief complaint: Shortness of Breath Stated complaint: SOB Time Seen by Provider: 12/09/22 07:00 Source: patient, RN notes reviewed Mode of arrival: EMS Limitations: no limitations - History of Present Illness Initial comments: Patient is a pleasant 69-year-old male presenting to the emergency department by EMS for difficulty breathing. Symptoms started a couple of days ago and have progressively worsened. Mild cough. Patient states he did have a febrile couple of days ago. No leg pain or leg swelling. Patient is unclear if he has history of dysrhythmia or atrial flutter/fib - Related Data Home Medications Medication Instructions Recorded Confirmed Cholecalciferol [Vitamin D3 (125 125 mcg PO DAILY 11/24/21 11/24/21 Mcg = 5000 Iu)] Gabapentin [Neurontin] 600 mg PO TID 11/24/21 11/24/21 Rivaroxaban [Xarelto] 2.5 mg PO BID 11/24/21 11/24/21 oxyCODONE-APAP 10-325MG [Percocet 1 tab PO TID-W/MEALS 11/24/21 11/24/21 10-325 mg] Previous Rx's Medication Instructions Recorded Budesonide-Formot 160-4.5 Mcg 2 puff INHALATION RT-BID #0 each 12/09/21 [Symbicort 160-4.5 Mcg Inhaler] Ipratropium-Albuterol Nebulize 3 ml INHALATION RT-Q4H ml 12/09/21 [Duoneb 0.5 mg-3 mg/3 ml Soln] Metoprolol Tartrate [Lopressor] 12.5 mg PO BID tab 12/09/21 amLODIPine [Norvasc] 5 mg PO BID tab 12/09/21 cefTRIAXone [Rocephin] 2 gm IVPB Q24HR each 12/09/21 predniSONE 10 mg PO DIRECTED #30 tab 12/09/21 Azithromycin [Zithromax] 250 mg PO DIRECTED #6 tab 06/01/22 predniSONE 50 mg PO DAILY #5 tab 06/01/22 Allergies Allergy/AdvReac Type Severity Reaction Status Date / Time caffeine AdvReac Diarrhea Verified 06/01/22 14:42 Review of Systems ROS Statement: Those systems with pertinent positive or pertinent negative responses have been documented in the HPI. ROS Other: All systems not noted in ROS Statement are negative. Constitutional: Reports: as per HPI Eyes: Denies: eye pain ENT: Denies: ear pain Respiratory: Reports: as per HPI, dyspnea Cardiovascular: Denies: chest pain Endocrine: Reports: fatigue Gastrointestinal: Denies: abdominal pain Genitourinary: Denies: dysuria Musculoskeletal: Denies: back pain Skin: Denies: rash Neurological: Denies: weakness Past Medical History Past Medical History: Coronary Artery Disease (CAD), Heart Failure, COPD, CVA/TIA, Dementia, GERD/Reflux, Hyperlipidemia, Hypertension, Memory Impairment, Myocardial Infarction ([place]), Osteoarthritis (OA), Pneumonia, Pulmonary Embolus (PE), Syncope Additional Past Medical History / Comment(s): chronic COPD, home oxygen at 3L/[place] ATC, possibly past MIs/EKG, tia,hemorrhoids, small hiatal hernia, overactive bladder, 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 Last Myocardial Infarction Date:: unknown History of Any Multi-Drug Resistant Organisms: None Reported Past Surgical History: Appendectomy, Back Surgery Additional Past Surgical History / Comment(s): EGD with bx/colonoscopy with bx, bronchoscopy, low back surgery, PICC-since removed. Past Anesthesia/Blood Transfusion Reactions: No Reported Reaction Additional Past Anesthesia/Blood Transfusion Reaction / Comment(s): Pt has never received blood. Past Psychological History: Anxiety, Depression Smoking Status: Former smoker Past Alcohol Use History: None Reported Past Drug Use History: None Reported - Past Family History Father Family Medical History: Cancer Additional Family Medical History / Comment(s): Father had throat cancer. Mother Family Medical History: Cancer Additional Family Medical History / Comment(s): Mother had breast cancer. General Exam Limitations: no limitations General appearance: alert, in distress Head exam: Present: normocephalic Eye exam: Present: normal appearance Neck exam: Present: normal inspection Respiratory exam: Present: respiratory distress, rales Cardiovascular Exam: Present: tachycardia, irregular rhythm GI/Abdominal exam: Present: soft. Absent: tenderness Extremities exam: Present: normal inspection. Absent: pedal edema, calf tenderness Neurological exam: Present: alert Psychiatric exam: Present: normal affect, normal mood Skin exam: Present: normal color Course Vital Signs 12/09/22 12/09/22 12/09/22 06:59 07:19 07:20 Temperature 97.9 F Pulse Rate 142 H 144 H Respiratory 24 20 Rate Blood Pressure 162/105 O2 Sat by Pulse 92 L 97 Oximetry Fraction of 40 Inspired Oxygen (FIO2) - Reevaluation(s) Reevaluation #1: 12/09/22 08:28 There is concern for sepsis diagnosed at 0 820. Lactic acid and blood cultures and IV antibiotics will be ordered. EKG Findings - EKG Results: EKG: interpreted by KENDALD (Atrial flutter appearance.), normal axis, normal QRS, normal ST/T EKG shows: tachycardia Medical Decision Making - Medical Decision Making Was pt. sent in by a medical professional or institution (, PA, [facility], urgent care, hospital, or assisted...) When possible be specific @ -No Did you speak to anyone other than the patient for history (EMS, parent, family, police, friend...)? What history was obtained from this source @ -Family later arrives and helps provide history including no history of previous cardiac arrhythmia Did you review nursing and triage notes (agree or disagree)? Why? @ -I reviewed and agree with nursing and triage notes Were old charts reviewed (outside hosp., previous admission, EMS record, old EKG, old radiological studies, urgent care reports/EKG's, assisted records)? Report findings @ -No old charts were reviewed Differential Diagnosis (chest pain, altered mental status, abdominal pain women, abdominal pain men, vaginal bleeding, weakness, fever, dyspnea, syncope, headache, dizziness, GI bleed, back pain, seizure, CVA, palpatations, mental health)? @ -Differential Dyspnea: Coronary syndrome, arrhythmia, tamponade, asthma, COPD, pulmonary embolism, pneumonia, pneumothorax, pulmonary effusion, anaphylaxis, diabetic ketoacidosis, flailed chest, pulmonary contusion, diaphragmatic rupture, anemia, neuromuscular, this is not meant to be an all-inclusive list. EKG interpreted by me (3pts min.). @ -As above X-rays interpreted by me (1pt min.). @ -Chest x-ray shows some residual infiltrate suspicious for atypical pneumonia, more so right lower CT interpreted by me (1pt min.). @ -None done U/S interpreted by me (1pt. min.). @ -None done What testing was considered but not performed or refused? (CT, X-rays, U/S, labs)? Why? @ -None What meds were considered but not given or refused? Why? @ -Patient originally presented with concerns for CHF and considered medication for this including Lasix and nitro however blood work and chest x-ray appear more like pneumonia Did you discuss the management of the patient with other professionals (professionals i.e. , PA, [facility], lab, RT, psych nurse, addiction social worker, beekeeper, teacher, boat officer, supportive employment case manager)? Give summary @ -Case was discussed with Dr. Smith, who will admit covering Dr. Walden. Was smoking cessation discussed for >3mins.? @ -No Was critical care preformed (if so, how long)? @ -31 minutes critical care time Were there social determinants of health that impacted care today? How? (Homelessness, low income, unemployed, alcoholism, drug addiction, transportation, low edu. Level, literacy, decrease access to med. care, shelter, rehab)? @ -No Was there de-escalation of care discussed even if they declined (Discuss DNR or withdrawal of care, Hospice)? DNR status @ -No What co-morbidities impacted this encounter? (DM, HTN, Smoking, COPD, CAD, Cancer, CVA, ARF, Chemo, Hep., AIDS, mental health diagnosis, sleep apnea, morbid obesity)? @ -None Was patient admitted / discharged? Hospital course, mention meds given and route , prescriptions, significant lab abnormalities, going to OR and other pertinent info. @ -Patient reevaluated and somewhat improved with BiPAP. Heart rate improved to 1:30. Patient and family updated on results and plan. Patient will be admitted with consults with pulmonary and cardiology. Undiagnosed new problem with uncertain prognosis? @ -No Drug Therapy requiring intensive monitoring for toxicity (Heparin, Nitro, Insulin, Cardizem)? @ -Patient will need monitoring for Cardizem drip. Patient also on BiPAP and will need monitoring for that Were any procedures done? @ -No Diagnosis/symptom? @ -Pneumonia, new onset A. fib with RVR Acute, or Chronic, or Acute on Chronic? @ -Acute, acute Uncomplicated (without systemic symptoms) or Complicated (systemic symptoms)? @ -Pneumonia is complicated with respiratory failure Side effects of treatment? @ -No Exacerbation, Progression, or Severe Exacerbation? @ -No Poses a threat to life or bodily function? How? (Chest pain, [place], [place], pneumonia, PE, COPD, DKA, ARF, appy, cholecystitis, CVA, Diverticulitis, Homicidal, Suicidal, threat to staff... and all critical care pts) @ -No - Lab Data Result diagrams: 12/09/22 07:04 12/09/22 07:04 Lab Results 12/09/22 12/09/22 12/09/22 Range/Units 07:04 07:04 07:04 WBC 16.5 H (3.8-10.6) k/uL RBC 4.92 (4.30-5.90) m/uL Hgb 15.0 (13.0-17.5) gm/dL Hct 48.4 (39.0-53.0) % MCV 98.3 (80.0-100.0) fL MCH 30.5 (25.0-35.0) pg MCHC 31.0 (31.0-37.0) g/dL RDW 12.9 (11.5-15.5) % Plt Count 336 (150-450) k/uL MPV 7.1 Neutrophils % 83 % Lymphocytes % 10 % Monocytes % 4 % Eosinophils % 1 % Basophils % 0 % Neutrophils # 13.7 H (1.3-7.7) k/uL Lymphocytes # 1.6 (1.0-4.8) k/uL Monocytes # 0.7 (0-1.0) k/uL Eosinophils # 0.2 (0-0.7) k/uL Basophils # 0.1 (0-0.2) k/uL PT 10.3 (9.0-12.0) sec INR 1.0 (<1.2) APTT 23.7 (22.0-30.0) sec Sodium 136 L (137-145) mmol/L Potassium 5.7 H (3.5-5.1) mmol/L Chloride 97 L (98-107) mmol/L Carbon Dioxide 30 (22-30) mmol/L Anion Gap 9 mmol/L BUN 35 H (9-20) mg/dL Creatinine 1.33 H (0.66-1.25) mg/dL Est GFR (CKD-EPI)AfAm 59 (>60 ml/min/1.73 sqM) Est GFR (CKD-EPI)NonAf 51 (>60 ml/min/1.73 sqM) Glucose 112 H (74-99) mg/dL Plasma Lactic Acid Paco (0.7-2.0) mmol/L Calcium 9.4 (8.4-10.2) mg/dL Total Bilirubin 0.4 (0.2-1.3) mg/dL AST 61 H (17-59) U/L ALT 84 H (4-49) U/L Alkaline Phosphatase 131 H (38-126) U/L Troponin I (0.000-0.034) ng/mL NT-Pro-B Natriuret Pep pg/mL Total Protein 7.7 (6.3-8.2) g/dL Albumin 4.4 (3.5-5.0) g/dL Influenza Type A (PCR) (Not Detectd) Influenza Type B (PCR) (Not Detectd) RSV (PCR) (Not Detectd) SARS-CoV-2 (PCR) (Not Detectd) 12/09/22 12/09/22 12/09/22 Range/Units 07:04 07:04 07:04 WBC (3.8-10.6) k/uL RBC (4.30-5.90) m/uL Hgb (13.0-17.5) gm/dL Hct (39.0-53.0) % MCV (80.0-100.0) fL MCH (25.0-35.0) pg MCHC (31.0-37.0) g/dL RDW (11.5-15.5) % Plt Count (150-450) k/uL MPV Neutrophils % % Lymphocytes % % Monocytes % % Eosinophils % % Basophils % % Neutrophils # (1.3-7.7) k/uL Lymphocytes # (1.0-4.8) k/uL Monocytes # (0-1.0) k/uL Eosinophils # (0-0.7) k/uL Basophils # (0-0.2) k/uL PT (9.0-12.0) sec INR (<1.2) APTT (22.0-30.0) sec Sodium (137-145) mmol/L Potassium (3.5-5.1) mmol/L Chloride (98-107) mmol/L Carbon Dioxide (22-30) mmol/L Anion Gap mmol/L BUN (9-20) mg/dL Creatinine (0.66-1.25) mg/dL Est GFR (CKD-EPI)AfAm (>60 ml/min/1.73 sqM) Est GFR (CKD-EPI)NonAf (>60 ml/min/1.73 sqM) Glucose (74-99) mg/dL Plasma Lactic Acid Paco 1.3 (0.7-2.0) mmol/L Calcium (8.4-10.2) mg/dL Total Bilirubin (0.2-1.3) mg/dL AST (17-59) U/L ALT (4-49) U/L Alkaline Phosphatase (38-126) U/L Troponin I 0.025 (0.000-0.034) ng/mL NT-Pro-B Natriuret Pep pg/mL Total Protein (6.3-8.2) g/dL Albumin (3.5-5.0) g/dL Influenza Type A (PCR) Not Detected (Not Detectd) Influenza Type B (PCR) Not Detected (Not Detectd) RSV (PCR) Not Detected (Not Detectd) SARS-CoV-2 (PCR) Not Detected (Not Detectd) 12/09/22 Range/Units 07:11 WBC (3.8-10.6) k/uL RBC (4.30-5.90) m/uL Hgb (13.0-17.5) gm/dL Hct (39.0-53.0) % MCV (80.0-100.0) fL MCH (25.0-35.0) pg MCHC (31.0-37.0) g/dL RDW (11.5-15.5) % Plt Count (150-450) k/uL MPV Neutrophils % % Lymphocytes % % Monocytes % % Eosinophils % % Basophils % % Neutrophils # (1.3-7.7) k/uL Lymphocytes # (1.0-4.8) k/uL Monocytes # (0-1.0) k/uL Eosinophils # (0-0.7) k/uL Basophils # (0-0.2) k/uL PT (9.0-12.0) sec INR (<1.2) APTT (22.0-30.0) sec Sodium (137-145) mmol/L Potassium (3.5-5.1) mmol/L Chloride (98-107) mmol/L Carbon Dioxide (22-30) mmol/L Anion Gap mmol/L BUN (9-20) mg/dL Creatinine (0.66-1.25) mg/dL Est GFR (CKD-EPI)AfAm (>60 ml/min/1.73 sqM) Est GFR (CKD-EPI)NonAf (>60 ml/min/1.73 sqM) Glucose (74-99) mg/dL Plasma Lactic Acid Paco (0.7-2.0) mmol/L Calcium (8.4-10.2) mg/dL Total Bilirubin (0.2-1.3) mg/dL AST (17-59) U/L ALT (4-49) U/L Alkaline Phosphatase (38-126) U/L Troponin I (0.000-0.034) ng/mL NT-Pro-B Natriuret Pep 102 pg/mL Total Protein (6.3-8.2) g/dL Albumin (3.5-5.0) g/dL Influenza Type A (PCR) (Not Detectd) Influenza Type B (PCR) (Not Detectd) RSV (PCR) (Not Detectd) SARS-CoV-2 (PCR) (Not Detectd) Critical Care Time Critical Care Time: Yes Total Critical Care Time: 31 Disposition Clinical Impression: Pneumonia, Acute respiratory failure, Atrial flutter with rapid ventricular response, Sepsis Disposition: ADMITTED IP TO THIS HOSP Condition: Serious Is patient prescribed a controlled substance at d/c from ED?: No Referrals: Maximiliano Walden MD [Primary Care Provider] - 1-2 days Time of Disposition: 08:27
--- NOTE | 2022-12-09 07:22 | XR ---
EXAMINATION TYPE: XR chest 1V portable DATE OF EXAM: 12/09/2022 COMPARISON: 11/27/2022 INDICATION: Difficulty breathing TECHNIQUE: Single frontal view of the chest is obtained. FINDINGS: The heart size is normal. The pulmonary vasculature is normal. Minimal scattered infiltrates are present within the mid and lower lung hernandes greater in the left co stophrenic angle. Findings are nonspecific consider atelectasis or pneumonia. Consider atypical pneum onia. IMPRESSION: 1. Scattered lower lung field infiltrates. Consider atypical pneumonia
[2022-12-09] MEDS ORDERED: DILTIAZEM 125 MG in SODIUM CHLORIDE 0.9% 100 ML IV SCH (07:30)
[2022-12-09 07:38] LABS: Basophils # (A) 0.1 k/uL (0-0.2); Basophils % (A) 0 %; Eosinophils # (A) 0.2 k/uL (0-0.7); Eosinophils % (A) 1 %; HCT 48.4 % (39.0-53.0); Lymphocytes # (A) 1.6 k/uL (1.0-4.8); Lymphocytes % (A) 10 %; MCH 30.5 pg (25.0-35.0); MCV 98.3 fL (80.0-100.0); Mean Platelet Volume 7.1; Monocytes # (A) 0.7 k/uL (0-1.0); Monocytes % (A) 4 %; Neutrophils # (A) 13.7 k/uL (1.3-7.7); Neutrophils % (A) 83 %; Platelet Count 336 k/uL (150-450); RBC 4.92 m/uL (4.30-5.90); RDW 12.9 % (11.5-15.5); WBC 16.5 k/uL (3.8-10.6)
[2022-12-09] MEDS ORDERED: LORazepam 2 MG/ML INJ IV STA ×2 (07:47→10:16)
[2022-12-09 07:51] LABS: Partial Thromboplastin Time 23.7 sec (22.0-30.0); Prothrombin Time 10.3 sec (9.0-12.0)
[2022-12-09 07:52] LABS: Albumin 4.4 g/dL (3.5-5.0); Calcium 9.4 mg/dL (8.4-10.2); Potassium 5.7 mmol/L (3.5-5.1); Total Bilirubin 0.4 mg/dL (0.2-1.3); Total Protein 7.7 g/dL (6.3-8.2)
[2022-12-09] MEDS ORDERED: PNEUMONIA PROTOCOL UTILIZED 1 EACH MISC PO PRN (08:28)
[2022-12-09] MEDS ORDERED: AZITHROMYCIN 500 MG in SODIUM CHLORIDE 0.9% 250 ML IVPB STA (08:30)
[2022-12-09] MEDS: SODIUM CHLORIDE 0.9% 500 ML 500 ML IV SCH ×4 (09:14→10:41)
[2022-12-09] MEDS: SODIUM CHLORIDE 0.9% 1,000 ML IV SCH ×2 (09:15→16:51)
[2022-12-09] MEDS ORDERED: CISATRACURIUM 2 MG/ML 5 ML VIAL IV ONE (11:03)
--- NOTE | 2022-12-09 11:29 | P.CNPUL ---
History of Present Illness Consult date: 12/09/22 Reason for consult: dyspnea History of present illness: Visit 76-year-old male patient presented to [facility] department because of worsening shortness of breath. The patient is known to have severe COPD with an FEV1 of 49% of predicted at baseline. He has underlying dementia, hypertension and hyperlipidemia and previous history of pulmonary embolism and he has been maintained on long-term xarelto . I was unable to interview the patient. As by the time I arrived, he was having agonal breathing while being on a BiPAP. I came to find other the patient was already being supported with BiPAP since he came in his breathing was progressively getting worse. He was unable to provide any history. He was unresponsive, and at that point, I intubated this patient in the emergency department. Currently is intubated on a mechanical ventilator. Is on assist-control at the rate of 26, tidal volume of 400, FiO2 of 100% with a PEEP of 5. Most recent blood pressure is 159/90. He is on propofol running at 40 mcg/kg/m. Intubation process was done without any complications. Chest x-ray is consistent with you. Post intubation chest x-rays pending. Meanwhile, his blood work from today showed a basic of 16.9 with a hemoglobin of 15 and a p latelet count of 336. Normal coagulation profile. BUN is at 35 with a creatinine of 1.38. Sodium is 136. Potassium level is at 5.7. LFTs are slightly elevated with an AST of 61, ALT of 84, alkaline phosphatase of 131, proBNP is nonelevated at 102 and the patient has a negative Covid 19 testing, negative influenza and negative RSV. Blood gases pending. Post intubation chest x-rays pending. He has not required any pressors. He is afebrile. He was started on Rocephin and Zithromax and is also on IV Solu-Medrol. No reported chest pain. EKG showed no ischemic changes. It is consistent with sinus tachycardia. Review of Systems ROS unobtainable: due to endotracheal tube Past Medical History Past Medical History: Coronary Artery Disease (CAD), Heart Failure, COPD, CVA/TIA, Dementia, GERD/Reflux, Hyperlipidemia, Hypertension, Memory Impairment, Myocardial Infarction (AR), Osteoarthritis (OA), Pneumonia, Pulmonary Embolus (PE), Syncope Additional Past Medical History / Comment(s): chronic COPD, home oxygen at 3L/[place] ATC, possibly past MIs/EKG, tia,hemorrhoids, small hiatal hernia, overactive bladder, 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 Last Myocardial Infarction Date:: unknown History of Any Multi-Drug Resistant Organisms: None Reported Past Surgical History: Appendectomy, Back Surgery Additional Past Surgical History / Comment(s): EGD with bx/colonoscopy with bx, bronchoscopy, low back surgery, PICC-since removed. Past Anesthesia/Blood Transfusion Reactions: No Reported Reaction Additional Past Anesthesia/Blood Transfusion Reaction / Comment(s): Pt has never received blood. Past Psychological History: Anxiety, Depression Smoking Status: Former smoker Past Alcohol Use History: None Reported Past Drug Use History: None Reported - Past Family History Father Family Medical History: Cancer Additional Family Medical History / Comment(s): Father had throat cancer. Mother Family Medical History: Cancer Additional Family Medical History / Comment(s): Mother had breast cancer. Medications and Allergies Home Medications Medication Instructions Recorded Confirmed Type Gabapentin [Neurontin] 600 mg PO TID 11/24/21 12/09/22 History Rivaroxaban [Xarelto] 2.5 mg PO BID 11/24/21 12/09/22 History oxyCODONE-APAP 10-325MG [Percocet 1 tab PO TID-W/MEALS 11/24/21 12/09/22 History 10-325 mg] Albuterol Sulfate [Albuterol 2 puff INHALATION RT-QID PRN 12/09/22 12/09/22 History Sulfate Hfa] Ipratropium-Albuterol Nebulize 3 ml INHALATION RT-QID PRN 12/09/22 12/09/22 History [Duoneb 0.5 mg-3 mg/3 ml Soln] Metoprolol Tartrate [Lopressor] 12.5 mg PO BID 12/09/22 12/09/22 History predniSONE 10 mg PO DAILY 12/09/22 12/09/22 History Allergies Allergy/AdvReac Type Severity Reaction Status Date / Time caffeine AdvReac Diarrhea Verified 12/09/22 08:35 Physical Exam Vitals: Vital Signs Temp Pulse Resp BP Pulse Ox FiO2 12/09/22 11:06 100 12/09/22 09:57 40 12/09/22 09:17 116 H 20 141/79 97 12/09/22 08:41 133 H 20 128/82 98 12/09/22 07:20 144 H 20 162/105 97 12/09/22 07:19 40 12/09/22 06:59 97.9 F 142 H 24 92 L Intake and Output 12/08/22 12/09/22 12/09/22 22:59 06:59 14:59 Other: Weight 70.307 kg Patient is sedated currently intubated on a mechanical ventilator. Orogastric and orotracheal tube are both in place Head exam was generally normal. There was no scleral icterus or corneal arcus. Mucous membranes were moist. Neck was supple and without jugular venous distension, thyromegaly, or carotid bruits. Carotids were easily palpable bilaterally. There was no adenopathy. Lungs sounds are markedly diminished and the patient had diffuse expiratory wheezes throughout the lung hernandes bilaterally Heart sounds are consistent with sinus tachycardia. No significant murmurs overall heart sounds are distant Abdominal exam revealed normal bowel sounds. The abdomen was soft, non-tender, and without masses, organomegaly, or appreciable enlargement of the abdominal aorta. Examination of the extremities revealed easily palpable radial, femoral and pedal pulses. There was no cyanosis, clubbing or edema. Examination of the skin revealed no evidence of significant rashes, suspicious appearing nevi or other concerning lesions. Neurologically the patient is currently sedated on a mechanical ventilator. Results - Laboratory Findings CBC and BMP: 12/09/22 07:04 12/09/22 07:04 PT/INR, D-dimer PT 10.3 sec (9.0-12.0) 12/09/22 07:04 INR 1.0 (<1.2) 12/09/22 07:04 Abnormal lab findings: Abnormal Labs 12/09/22 12/09/22 07:04 07:04 WBC 16.5 H Neutrophils # 13.7 H Sodium 136 L Potassium 5.7 H Chloride 97 L BUN 35 H Creatinine 1.33 H Glucose 112 H AST 61 H ALT 84 H Alkaline Phosphatase 131 H - Diagnostic Findings Chest x-ray: image reviewed Assessment and Plan Plan: Altered mentation secondary to respiratory failure. The patient was in agonal breathing, intubated in the emergency and placed on a mechanical ventilator and currently is on propofol. Acute COPD exacerbation with questionable pneumonia. The chest x-ray is more c onsistent with COPD. There is some methods scattered lower lobe pulmonary infiltrates. Acute hypoxic/hypercapnic respiratory failure secondary to exacerbation Chronic hypoxic respiratory failure and the patient will maintain oxygen at 3 L on outpatient basis Previous history of hospitalization for pneumococcal pneumonia approximately year ago Coronary artery disease Dementia Hiatal hernia Overactive bladder History of smoking quit in 2016 History of alcoholism quit in 2016 Osteoarthritis Previous history of pulmonary embolism maintain on long-term anticoagulants Hypertension Hyperlipidemia Acid reflux Previous history of TIA Plan Patient is currently intubated on a mechanical ventilator pending blood gas. Pending chest x-ray. Necessary ventilator changes will be done Continue propofol for sedation Continue DuoNeb nebulized treatments [id number] IV Solu-Medrol 60 mg every 6 hours Agree on Rocephin and Zithromax Obtain ultrasound the liver, LFTs are slightly elevated IV Protonix Resume all medications including anticoagulants This is a critical care evaluation. The patient is critically ill currently intubated on a mechanical ventilator. This evaluation was done in the emergency department. The patient which acid to the ICU once beds are available. Time with Patient: Greater than 30
--- NOTE | 2022-12-09 11:32 | P.PCN ---
Date of Procedure: 12/09/22 Preoperative Diagnosis: Acute hypoxic respiratory failure Postoperative Diagnosis: Same Procedure(s) Performed: Intubation and central line Anesthesia: AMAN Surgeon: Yves Stovall Pathology: other Condition: critical Disposition: ICU Operative Findings: Indication: Hemodynamic monitoring/Intravenous access. A time-out was completed verifying correct patient, procedure, site, positioning, and implant(s) or special equipment if applicable. The patient was placed in a dependent position appropriate for central line placement based on the vein to be cannulated. The patients right groin was prepped and draped in sterile fashion. 1% Lidocaine was used to anesthetize the surrounding skin area. A triple lumen 9F Cordis catheter was introduced into the right common femoral vein using Seldinger technique. The catheter was threaded smoothly over the guide wire and appropriate blood return was obtained. Each lumen of the catheter was evacuated of air and flushed with sterile saline. The catheter was then sutured in place to the skin and a sterile dressing applied. Perfusion to the extremity distal to the point of catheter insertion was checked and found to be adequate. The patient tolerated the procedure well and there were no complications. Indication: Respiratory compromise. A time-out was completed verifying correct patient, procedure, site, positioning, and implant(s) or special equipment if applicable. The patient was positioned appropriately and a #8 endotracheal tube was placed under direct laryngoscopy. The tube was anchored at 22 cm at the teeth. Correct placement was confirmed by presence of bilateral breath sounds without air sounds in the abdomen on auscultation. An end-tidal CO2 monitor was also used to confirm tracheal placement of the ET tube. A chest x-ray was ordered to assess for pneumothorax and verify endotracheal tube placement. The patient tolerated the procedure well and there were no complications.
--- NOTE | 2022-12-09 11:35 | P.HPIM ---
History of Present Illness H&P Date: 12/09/22 History of Presenting Illness: Patient is a very pleasant 77-year-old male with a past medical history of coronary artery disease, hypertension, hyperlipidemia, diastolic heart failure with previously known EF of 60-65%, COPD home oxygen dependent 3 L, pulmonary hypertension, history of CVA with reports of memory impairment on low dose Xarelto, history of pulmonary emboli, and history of previous alcohol abuse with last drink being in 2016. Patient presented to the emergency department this morning with a chief complaint of shortness of breath. Upon arrival to our facility patient was found to be in respiratory distress with tachypneic labored respirations at 24 breaths per minute, tachycardic with heart rate 140s, hypertensive a blood pressure 162/105, temp 97.9F and hypoxic requiring placement on BiPAP. Patient states history of pneumonia and reported he was last treated outpatient for pneumonia back in August and reports that he did recover, but has since not quite been back to his baseline. He stated approximately 5 days ago he noticed exertional dyspnea with increased cough and congestion the progressively worsened and reports about 2-3 days ago the symptoms significantly worsened and were accompanied by a fever, fatigue, and w eakness. Patient denied having any headache, lightheadedness, dizziness, chest pain, palpitations, or experiencing any numbness/tingling/weakness/swelling in his extremities. he underwent full evaluation in the emergency department. As stated above patient was placed on BiPAP upon arrival due to severe respiratory distress. EKG was completedshowing sinus tachycardia at 145 bpm upon personal review and interpretation. Chest x-ray completed and radiology report reviewed reporting scattered lung field infiltrates concerning for atypical pneumonia. Labs completed and reviewed. CBC showing leukocytosis with WBC count of 16.5 with left shift with neutrophils of 13.7. BMP revealing hyperkalemia with potassium of 5.7, and an acute kidney injury with BUN 35, creatinine 1.33, and GFR of 51 with baseline creatinine of 0.9. Liver profile revealing transaminitis with acutely elevated LFTs with AST of 61, ALT of 84, and alkaline phosphatase of 131. (patient does have history of alcohol use with last drink being reported in 2016, but does not have history of transaminitis).Troponin 0.025 and pro-BMP of 102. Influenza A, influenza B, RSV, and Covid PCR were completed all with negative findings. Discussed patient along with clinical, laboratory, and imaging findings in detail with the ED physician. Patient being admitted to stepdown unit with telemetry under our services with consultation to pulmonology. Review of systems: Pertinent positives and negatives as discussed in HPI, a complete review of systems was performed and all other systems are negative. Physical exam: Vital signs reviewed and stable. General: Nontoxic, no distress and appears stated age. Derm: Skin warm and dry, normal coloration for ethnicity. Head: Atraumatic, normocephalic and symmetric. Eyes: EOMs intact, no lid lag, and anicteric sclera Mouth: no lip lesions, mucus membranes moist Cardiovascular: regular rate with tachycardic rhythm, systolic murmur, positive posterior tibial pulses bilaterally, and cap refill < 2 seconds. Lungs: Respirations tachypneic and labored on BiPAP.. Lungs diffuse rhonchi with soft expiratory wheezes. Abdominal: Soft, nontender to palpation, no guarding, no appreciable organomeg [place] Ext: ROM intact. No gross muscle atrophy, no edema, no contractures Neuro: Speech clear, face symmetrical and CN II-XII grossly intact with no noted focal neuro deficits Psych: Alert and oriented to person, place, time, and situation. Appropriate and pleasant affect. Assessment and Plan of Care: Sepsis 2/2 Acute on chronic respiratory failure with hypoxia, likely multifactorial secondary to advanced COPD and pneumonia, COPD with acute exacerbation Sinus tachycardia secondary to above Hypertensive urgency secondary to above Acute kidney injury Transaminitis Pulmonary hypertension Chronic diastolic heart failure with previously known EF of 60-65% History of coronary artery disease History of hypertension History of hyperlipidemia History of CVA with reports of memory impairment on low-dose xarelto History of pulmonary emboli History of previous alcohol abuse with last drink being in 2016 -Upon arrival to our facility patient was found to be in respiratory distress with tachypneic labored respirations at 24 breaths per minute, tachycardic with heart rate 140s, hypertensive a blood pressure 162/105, temp 97.9F and hypoxic requiring immediate placement on BiPAP. -EKG was completed showing sinus tachycardia at 145 bpm upon personal review and interpretation. -Chest x-ray completed and radiology report reviewed reporting scattered lung field infiltrates concerning for atypical pneumonia. -Labs completed and reviewed. CBC showing leukocytosis with WBC count of 16.5 with left shift with neutrophils of 13.7. BMP revealing hyperkalemia with potassium of 5.7, and an acute kidney injury with BUN 35, creatinine 1.33, and GFR of 51 with baseline creatinine of 0.9. Liver profile revealing transaminitis with acutely elevated LFTs with AST of 61, ALT of 84, and alkaline phosphatase of 131. (patient does have history of alcohol use with last drink being reported in 2016, but does not have history of transaminitis). Troponin 0.025 and pro- BMP of 102. -Influenza A, influenza B, RSV, and Covid PCR were completed all with negative findings. -Discussed patient along with clinical, laboratory, and imaging findings in detail with the ED physician. -Patient being admitted to stepdown unit with telemetry under our services. -Printed Circuit [employer] Layout Designer consulted. -Continue BiPAP -Continuous telemetry monitoring. -IV antibiotics with azithromycin and Rocephin for treatment of pneumonia. The patient is admitted with an anticipated greater than 2 midnight stay for evaluation of acute on chronic respiratory failure with hypoxia secondary to COPD exacerbation and pneumonia. CODE STATUS: Full code DVT prophylaxis: Xarelto Discussed with: PT, ED physician, and RN Anticipated discharge date: clinical course to determine Anticipated discharge place: home Patient was seen independently by Nurse Practitioner. This document was prepared using Quantitative Medicine dictation software. Please allow for errors in pharmaceutical assistant while rare they do occur. Jakub Davison NP rendered care for this patient independently, reviewed the findings and plan as documented in the note above. I had seen the patient once the patient was intubated. Will be assuming care from hereon. Past Medical History Past Medical History: Coronary Artery Disease (CAD), Heart Failure, COPD, CVA/TIA, Dementia, GERD/Reflux, Hyperlipidemia, Hypertension, Memory Impairment, Myocardial Infarction (MT), Osteoarthritis (OA), Pneumonia, Pulmonary Embolus (PE), Syncope Additional Past Medical History / Comment(s): chronic COPD, home oxygen at 3L/NC ATC, possibly past MIs/EKG, tia,hemorrhoids, small hiatal hernia, overactive bladder, recovering alcoholic-last drank 2016. Last Myocardial Infarction Date:: unknown History of Any Multi-Drug Resistant Organisms: None Reported Past Surgical History: Appendectomy, Back Surgery Additional Past Surgical History / Comment(s): EGD with bx/colonoscopy with bx, bronchoscopy, low back surgery, PICC-since removed. Past Anesthesia/Blood Transfusion Reactions: No Reported Reaction Additional Past Anesthesia/Blood Transfusion Reaction / Comment(s): Pt has never received blood. Past Psychological History: Anxiety, Depression Smoking Status: Former smoker Past Alcohol Use History: None Reported Past Drug Use History: None Reported - Past Family History Father Family Medical History: Cancer Additional Family Medical History / Comment(s): Father had throat cancer. Mother Family Medical History: Cancer Additional Family Medical History / Comment(s): Mother had breast cancer. Medications and Allergies Home Medications Medication Instructions Recorded Confirmed Type Gabapentin [Neurontin] 600 mg PO TID 11/24/21 12/09/22 History Rivaroxaban [Xarelto] 2.5 mg PO BID 11/24/21 12/09/22 History oxyCODONE-APAP 10-325MG [Percocet 1 tab PO TID-W/MEALS 11/24/21 12/09/22 History 10-325 mg] Albuterol Sulfate [Albuterol 2 puff INHALATION RT-QID PRN 12/09/22 12/09/22 History Sulfate Hfa] Ipratropium-Albuterol Nebulize 3 ml INHALATION RT-QID PRN 12/09/22 12/09/22 History [Duoneb 0.5 mg-3 mg/3 ml Soln] Metoprolol Tartrate [Lopressor] 12.5 mg PO BID 12/09/22 12/09/22 History predniSONE 10 mg PO DAILY 12/09/22 12/09/22 History Allergies Allergy/AdvReac Type Severity Reaction Status Date / Time caffeine AdvReac Diarrhea Verified 12/09/22 08:35 Physical Exam Vitals: Vital Signs Temp Pulse Resp BP Pulse Ox FiO2 12/09/22 07:20 144 H 20 162/105 97 12/09/22 07:19 40 12/09/22 06:59 97.9 F 142 H 24 92 L Intake and Output 12/08/22 12/09/22 12/09/22 22:59 06:59 14:59 Other: Weight 70.307 kg Results CBC & Chem 7: 12/09/22 07:04 12/09/22 07:04 Labs: Abnormal Lab Results - Last 24 Hours (Table) 12/09/22 12/09/22 Range/Units 07:04 07:04 WBC 16.5 H (3.8-10.6) k/uL Neutrophils # 13.7 H (1.3-7.7) k/uL Sodium 136 L (137-145) mmol/L Potassium 5.7 H (3.5-5.1) mmol/L Chloride 97 L (98-107) mmol/L BUN 35 H (9-20) mg/dL Creatinine 1.33 H (0.66-1.25) mg/dL Glucose 112 H (74-99) mg/dL AST 61 H (17-59) U/L ALT 84 H (4-49) U/L Alkaline Phosphatase 131 H (38-126) U/L
[2022-12-09 11:37] LABS: ABG Base Excess -4.4 mmol/L; ABG HCO3 24 mmol/L (21-25); ABG PCO2 63 mmHg (35-45); ABG PO2 >400 mmHg (83-108); ABG TCO2 26 mmol/L (19-24); Allen Test Performed? Yes
[2022-12-09] MEDS ORDERED: VANCOMYCIN IV PER PHARMACY 1 EACH MISC MISCELLANE PRN (11:37)
--- NOTE | 2022-12-09 11:42 | XR ---
EXAMINATION TYPE: XR chest 1V confirm line [facility] DATE OF EXAM: 12/09/2022 COMPARISON: 12/09/2022 at 0706 hours HISTORY: Intubation and central line placement. TECHNIQUE: Single frontal view of the chest is obtained. FINDINGS: There is an endotracheal tube terminating approximately 5 cm from the armando, an orogastric tube whic h extends past the diaphragm and terminating outside the field of view, and multiple overlying cardia c monitoring leads. A central venous catheter is not visualized. The heart size is normal the pulmonary vasculature is within normal limits. There are increased lung volumes, compatible with emphysema. There are patchy and interstitial opacities at the left lung base , which are slightly worsened when compared to previous examination. The bilateral costophrenic angle s are partially excluded from the [id number], which slightly limits evaluation for bilateral pleur al effusions. There is no appreciable pneumothorax. IMPRESSION: 1. Endotracheal and orogastric tubes, as above. 2. Patchy and interstitial opacities at the left lung base. This finding may relate to atelectasis or a developing pneumonia. Attention on follow-up.
--- NOTE | 2022-12-09 12:07 | P.CRDCN ---
History of Present Illness Consult date: 12/09/22 History of present illness: History of Present Illness: The patient is a 77-year-old male with known history of severe COPD, history of dementia, hypertension, hyperlipidemia, prior history of pulmonary embolism and preserved systolic function in November 2021 who presented to the hospital with symptoms of progressive dyspnea and tachycardia. The patient deteriorated with agonal breathing requiring mechanical ventilation. He is intubated. This time, and sinus tachycardia with no evidence of malignant arrhythmia. There was a question of atrial flutter but reviewing the EKG is sinus tachycardia. The patient has no documented history of obstructive CAD, he has a prior history of congestive heart failure with preserved systolic function as well has a history of carotid obstructive disease. In the emergency room his NT proBNP was 102. His chest x-ray showed patchy infiltrate that could represent pneumonia. He was hyperkalemic in the emergency room, his troponin was normal and he had abnormal renal functions. Medications: Metoprolol 12.5 mg twice a day, prednisone, Neurontin, Xarelto 2.5 mg twice a day Review of Systems: Could not be obtained, the patient is intubated Physical Examination: 77-year-old male, intubated and sedated ,Blood pressure 141/70, Heart rate 115 Head: Normocephalic. Eyes: Sclerae nonicteric. Neck: Good carotid upstroke, no bruit, no jugular venous distention. Lungs: Decreased breath sounds anteriorly Heart: Regular rate and rhythm, S1-S2, no S3, no rub. Systolic ejection murmur. Abdomen: Soft positive bowel sounds no organomegaly. Extremities: No edema, intact distal pulses. Labs: Potassium 5.7, BUN 35, creatinine 1.33. White blood cell 16.5, hemoglobin 15. Troponin 0.025. AST 61, ALT 84 EKG: Sinus tachycardia with nonspecific ST-T wave changes Impression: 1. Respiratory failure with exacerbation of COPD in a patient with known history of severe COPD and possible pneumonia 2. Sinus tachycardia secondary to the underlying lung status and hypoxemia 3. Prior history of hypertension 4. History of hyperlipidemia 5. Abnormal renal functions 6. History of dementia 7. History of pulmonary embolism Plan: 1. Respiratory management per pulmonary service 2. No evidence of acute coronary ischemia or arrhythmia 3. Obtain an echocardiogram with Doppler 4. Follow renal functions 5. Depending on his progress further recommendations will be made. Thank you for this consult we will follow with you. Past Medical History Past Medical History: Coronary Artery Disease (CAD), Heart Failure, COPD, CVA/TIA, Dementia, GERD/Reflux, Hyperlipidemia, Hypertension, Memory Impairment, Myocardial Infarction (NM), Osteoarthritis (OA), Pneumonia, Pulmonary Embolus (PE), Syncope Additional Past Medical History / Comment(s): chronic COPD, home oxygen at 3L/[place] ATC, possibly past MIs/EKG, tia,hemorrhoids, small hiatal hernia, overactive bladder, 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 Last Myocardial Infarction Date:: unknown History of Any Multi-Drug Resistant Organisms: None Reported Past Surgical History: Appendectomy, Back Surgery Additional Past Surgical History / Comment(s): EGD with bx/colonoscopy with bx, bronchoscopy, low back surgery, PICC-since removed. Past Anesthesia/Blood Transfusion Reactions: No Reported Reaction Additional Past Anesthesia/Blood Transfusion Reaction / Comment(s): Pt has never received blood. Past Psychological History: Anxiety, Depression Smoking Status: Former smoker Past Alcohol Use History: None Reported Past Drug Use History: None Reported - Past Family History Father Family Medical History: Cancer Additional Family Medical History / Comment(s): Father had throat cancer. Mother Family Medical History: Cancer Additional Family Medical History / Comment(s): Mother had breast cancer. Medications and Allergies Home Medications Medication Instructions Recorded Confirmed Type Gabapentin [Neurontin] 600 mg PO TID 11/24/21 12/09/22 History Rivaroxaban [Xarelto] 2.5 mg PO BID 11/24/21 12/09/22 History oxyCODONE-APAP 10-325MG [Percocet 1 tab PO TID-W/MEALS 11/24/21 12/09/22 History 10-325 mg] Albuterol Sulfate [Albuterol 2 puff INHALATION RT-QID PRN 12/09/22 12/09/22 History Sulfate Hfa] Ipratropium-Albuterol Nebulize 3 ml INHALATION RT-QID PRN 12/09/22 12/09/22 History [Duoneb 0.5 mg-3 mg/3 ml Soln] Metoprolol Tartrate [Lopressor] 12.5 mg PO BID 12/09/22 12/09/22 History predniSONE 10 mg PO DAILY 12/09/22 12/09/22 History Allergies Allergy/AdvReac Type Severity Reaction Status Date / Time caffeine AdvReac Diarrhea Verified 12/09/22 08:35 Physical Exam Vitals: Vital Signs Temp Pulse Resp BP Pulse Ox FiO2 12/09/22 11:51 40 12/09/22 11:40 40 12/09/22 11:10 100 12/09/22 09:57 40 12/09/22 09:17 116 H 20 141/79 97 12/09/22 08:41 133 H 20 128/82 98 12/09/22 07:20 144 H 20 162/105 97 12/09/22 07:19 40 12/09/22 06:59 97.9 F 142 H 24 92 L Intake and Output 12/08/22 12/09/22 12/09/22 22:59 06:59 14:59 Other: Weight 70.307 kg Results 12/09/22 07:04 12/09/22 07:04 Cardiac Enzymes 12/09/22 12/09/22 Range/Units 07:04 07:04 AST 61 H (17-59) U/L Troponin I 0.025 (0.000-0.034) ng/mL Coagulation 12/09/22 Range/Units 07:04 PT 10.3 (9.0-12.0) sec APTT 23.7 (22.0-30.0) sec CBC 12/09/22 Range/Units 07:04 WBC 16.5 H (3.8-10.6) k/uL RBC 4.92 (4.30-5.90) m/uL Hgb 15.0 (13.0-17.5) gm/dL Hct 48.4 (39.0-53.0) % Plt Count 336 (150-450) k/uL Comprehensive Metabolic Panel 12/09/22 Range/Units 07:04 Sodium 136 L (137-145) mmol/L Potassium 5.7 H (3.5-5.1) mmol/L Chloride 97 L (98-107) mmol/L Carbon Dioxide 30 (22-30) mmol/L BUN 35 H (9-20) mg/dL Creatinine 1.33 H (0.66-1.25) mg/dL Glucose 112 H (74-99) mg/dL Calcium 9.4 (8.4-10.2) mg/dL AST 61 H (17-59) U/L ALT 84 H (4-49) U/L Alkaline Phosphatase 131 H (38-126) U/L Total Protein 7.7 (6.3-8.2) g/dL Albumin 4.4 (3.5-5.0) g/dL Current Medications Generic Name Dose Route Start Last Admin Trade Name Freq PRN Reason Stop Dose Admin Albuterol/Ipratropium 3 ml 12/09/22 12:00 Ipratropium-Albuterol 3 Ml Neb INHALATION RT-QID ABDOULAYE Albuterol/Ipratropium 3 ml 12/09/22 08:30 Ipratropium-Albuterol 3 Ml Neb INHALATION RT-Q4H PRN shortness of breath Azithromycin 500 mg 12/10/22 09:00 Azithromycin 500 Mg Tab PO 12/11/22 09:01 DAILY [facility] Protocol Chlorhexidine Gluconate 15 ml 12/09/22 21:00 Chlorhexidine Gluconate 15 Ml Cup MUCOUS MEM BID [facility] Gabapentin 600 mg 12/09/22 16:00 Gabapentin 300 Mg Cap PO TID [facility] Sodium Chloride 1,000 mls @ 130 mls/hr 12/09/22 08:30 12/09/22 09:15 Saline 0.9% IV 130 mls/hr .[id number] [facility] Administration Propofol 1,000 mg/ IV Solution 100 mls @ 6.328 mls/hr 12/09/22 11:15 12/09/22 10:55 IV 15 mcg/kg/min .[id number] ABDOULAEY 6.328 mls/hr Administration Protocol 15 MCG/KG/MIN Cefepime HCl 2 gm/ Sodium 100 mls @ 25 mls/hr 12/09/22 16:00 Chloride IVPB Q8HR [facility] Protocol Metoprolol Tartrate 12.5 mg 12/09/22 21:00 Metoprolol Tartrate 12.5 Mg Tab PO BID [facility] Miscellaneous Information 1 each 12/09/22 08:28 Pneumonia Protocol Utilized 1 Each Misc PO ONCE PRN Per Protocol Miscellaneous Information 1 each 12/09/22 11:37 Vancomycin Iv Per Pharmacy 1 Each Misc MISCELLANE DIRECTED PRN Per Protocol Protocol Rivaroxaban 2.5 mg 12/09/22 21:00 Rivaroxaban 2.5 Mg Tablet PO BID [facility] Protocol Intake and Output 12/08/22 12/09/2223 22:59 06:59 14:59 Other: Weight 70.307 kg 12/09/22 07:04 12/09/22 07:04
[2022-12-09 12:54] LABS: ABG PH 7.19 (7.35-7.45)
[2022-12-09] MEDS: IPRATROPIUM-ALBUTEROL 3 ML NEB INHALATION SCH ×3 (13:00→22:00)
[2022-12-09] MEDS ORDERED: VANCOMYCIN 1,500 MG in SODIUM CHLORIDE 0.9% 500 ML 500 ML IVPB ONE (15:00)
[2022-12-09] MEDS ORDERED: CEFEPIME 2 GM in SODIUM CHLORIDE 0.9% 100 ML IVPB SCH (16:00)
[2022-12-09] MEDS: GABAPENTIN 300 MG CAP PO SCH ×2 (16:37→21:37)
[2022-12-09] MEDS: methylPREDNISolone SOD SUCCI 40 MG/ML 1 ML VIAL IV SCH (16:41)
--- NOTE | 2022-12-09 18:13 | CA ---
Transthoracic Echo Report Name: Ricki Hess Age: 77 Gender: M : 1945 Exam Date: 12/09/2022 14:54 Exam Location: [facility] Ht (in): 68 Wt (lb): 155 Ordering Physician: Sophie Foster MD ([id number]) Attending/Referring Phys: Civil Lawyer Radha Trujillo, SEKOU Procedure CPT: Indications: dyspnea Cardiac Hx: Technical Quality: Fair Contrast 1: Total Dose (mL): Contrast 2: Total Dose (mL): MEASUREMENTS (Male / Female) Normal Values 2D ECHO LV Diastolic Diameter PLAX 3.5 cm 4.2 - 5.9 / 3.9 - 5.3 cm LV Systolic Diameter PLAX 2.5 cm IVS Diastolic Thickness 1.4 cm 0.6 - 1.0 / 0.6 - 0.9 cm LVPW Diastolic Thickness 1.2 cm 0.6 - 1.0 / 0.6 - 0.9 cm LV Relative Wall Thickness 0.7 RV Internal Dim ED PLAX 4.2 cm DOPPLER AV Peak Velocity 117.7 cm/s AV Peak Gradient 5.5 mmHg TR Peak Velocity 287.9 cm/s TR Peak Gradient 33.2 mmHg Right Ventricular Systolic Press 37.3 mmHg FINDINGS Left Ventricle Moderately increased left ventricular wall thickness. Left ventricular ejection fraction is estimated at __ %. Normal left ventricular systolic function with no obvious regional wall motion abnormalities. Left ventricular ejection fraction is estimated at 55-60 %. Right Ventricle Moderate right ventricular dilatation. Mild pulmonary hypertension. Right Atrium Normal right atrial size. Left Atrium Left atrium not well visualized. Mitral Valve No mitral stenosis, regurgitation or prolapse. Aortic Valve No aortic valve stenosis or regurgitation. Tricuspid Valve Structurally normal tricuspid valve. Mild tricuspid regurgitation. Pulmonic Valve Structurally normal pulmonic valve. Pericardium No pericardial effusion. Aorta Normal size aortic root and proximal ascending aorta. CONCLUSIONS Normal LV systolic function Mild pulmonary hypertension Previewed by: Dr. Stephen Ashford MD (Electronically Signed) Final Date: 09 December 2022 18:12
[2022-12-09] MEDS: CHLORHEXIDINE GLUCONATE 15 ML CUP MUCOUS MEM SCH (21:37)
[2022-12-09] MEDS: PANTOPRAZOLE 40 MG/10 ML VIAL IVP SCH (21:37)
[2022-12-09] MEDS: RIVAROXABAN 2.5 MG TABLET PO SCH (21:38)
[2022-12-09] MEDS: METOPROLOL TARTRATE 12.5 MG TAB PO SCH (21:38)
[2022-12-10] MEDS: methylPREDNISolone SOD SUCCI 40 MG/ML 1 ML VIAL IV SCH ×2 (00:18→08:49)
[2022-12-10 04:22] LABS: ABG Base Excess -2.8 mmol/L; ABG HCO3 23 mmol/L (21-25); ABG Oxygen Saturation 99.3 % (94-97); ABG PCO2 40 mmHg (35-45); ABG PH 7.36 (7.35-7.45); ABG PO2 130 mmHg (83-108); ABG TCO2 24 mmol/L (19-24); Allen Test Performed? Yes
[2022-12-10 04:49] LABS: Calcium 7.3 mg/dL (8.4-10.2); Potassium 5.2 mmol/L (3.5-5.1)
[2022-12-10] MEDS: CEFEPIME 2 GM in SODIUM CHLORIDE 0.9% 100 ML IVPB SCH ×2 (04:55→15:30)
[2022-12-10 06:04] LABS: Basophils % (A) 0 %; Eosinophils % (A) 0 %; HCT 39.3 % (39.0-53.0); HGB 12.6 gm/dL (13.0-17.5); Lymphocytes # (A) 0.4 k/uL (1.0-4.8); Lymphocytes % (A) 3 %; MCH 32.1 pg (25.0-35.0); MCHC 32.1 g/dL (31.0-37.0); MCV 99.9 fL (80.0-100.0); Mean Platelet Volume 7.3; Monocytes # (A) 0.2 k/uL (0-1.0); Monocytes % (A) 2 %; Neutrophils % (A) 95 %; Platelet Count 249 k/uL (150-450); RBC 3.93 m/uL (4.30-5.90); WBC 13.7 k/uL (3.8-10.6)
[2022-12-10] MEDS: SODIUM CHLORIDE 0.9% 1,000 ML IV SCH ×3 (06:18→17:48)
--- NOTE | 2022-12-10 07:08 | XR ---
EXAMINATION TYPE: XR chest 1V portable DATE OF EXAM: 12/10/2022 4:55 AM COMPARISON: Chest radiographs from 12/09/2022 TECHNIQUE: XR chest 1V portable Portable AP radiograph of the chest. CLINICAL INDICATION:Male, 77 years old with history of Tube placement; FINDINGS: Lungs/Pleura: There is flattening of the diaphragm with increased lucency of the lungs. No pneumothor ax. Blunting of the right costophrenic angle. Improved bibasilar patchy interstitial opacities. Pulmonary vascularity: Unremarkable. Heart/mediastinum: Cardiomediastinal silhouette is unremarkable. Atherosclerotic calcifications are seen in the aorta. Musculoskeletal: No acute osseous pathology. Other findings: None Lines/Tubes: Endotracheal tube is in stable position above the armando Nasogastric tube with its distal tip and side-port projecting under the diaphragm. IMPRESSION: 1. Stable support tubes. 2. Small right pleural effusion with improved bibasilar patchy interstitial opacities. 3. COPD changes.
--- NOTE | 2022-12-10 07:39 | P.PN ---
Subjective Progress Note Date: 12/10/22 PROGRESS NOTE The patient is a 77-year-old male with known history of severe COPD, history of dementia, hypertension, hyperlipidemia, prior history of pulmonary embolism and preserved systolic function in November 2021 who presented to the hospital with symptoms of progressive dyspnea and tachycardia. The patient deteriorated with agonal breathing requiring mechanical ventilation. He is intubated. This time, and sinus tachycardia with no evidence of malignant arrhythmia. There was a question of atrial flutter but reviewing the EKG is sinus tachycardia. The patient has no documented history of obstructive CAD, he has a prior history of congestive heart failure with preserved systolic function as well has a history of carotid obstructive disease. In the emergency room his NT proBNP was 102. His chest x-ray showed patchy infiltrate that could represent pneumonia. He was hyperkalemic in the emergency room, his troponin was normal and he had abnormal renal functions. December 10: The patient remains intubated and sedated. He is in sinus mechanism. He underwent an echocardiogram that showed a normal systolic function with no significant valvular disease. Hemodynamically he stable. His urinary output is stable. There is no evidence of malignant arrhythmia. His chest x-ray shows improvement in his interstitial opacities with evidence of COPD. Medications: Gabapentin, metoprolol 12.5 mg twice a day, PHYSICAL EXAMINATION: Blood pressure 126/60 heart rate 90, intubated and sedated LUNGS: Decreased breath sounds anteriorly HEART: Regular rate and rhythm, S1, S2. No S3. systolic ejection murmur ABDOMEN: Soft, nontender, no organomegaly EXTREMETIES: No edema LAB: WBC 13.7, hemoglobin 12.6. Potassium 5.2. BUN 27, creatinine 1.01. IMPRESSION: 1. Respiratory failure with exacerbation of COPD and possible pneumonia 2. History of severe COPD 3. Sinus tachycardia, improved 4. History of dementia 5. Prior history of pulmonary embolism PLAN: 1. No evidence of acute ischemia 2. Patient has no evidence of atrial fibrillation or significant cardiac arrhythmia 3. Continue present therapy 4. We will see on as needed basis, please feel free to call us for any question Objective - Vital Signs Vital signs: Vital Signs Temp 98.1 F 12/10/22 04:00 Pulse 96 12/10/22 07:00 Resp 26 H 12/10/22 07:00 BP 126/61 12/10/22 07:00 Pulse Ox 99 12/10/22 07:00 FiO2 40 12/10/22 04:00 Intake & Output 12/09/22 12/10/22 12/10/22 18:59 06:59 18:59 Intake Total 567.822 7110.491 130 Output Total 550 1030 25 Balance -401.544 755.491 105 Weight 71.9 kg Intake: IV 130 1560 130 Sodium Chloride 0.9% 1, 130 1560 130 000 ml @ 130 mls/hr IV . Q7H42M [facility] Rx#:[id number] Intake, IV Titration 18.456 165.491 Amount propofoL 1,000 mg In 18.456 165.491 Empty Bag 1 bag @ 15 MCG/ KG/MIN 6.328 mls/hr IV . [id number] [facility] Rx#:[id number] Other 60 Output: Gastric Drainage 200 600 Urine 350 430 25 Other: Voiding Method Indwelling Catheter Indwelling Catheter - Labs CBC & Chem 7: 12/10/22 05:21 12/10/22 04:14 Labs: Abnormal Lab Results - Last 24 Hours (Table) 12/09/22 12/09/22 12/09/22 Range/Units 07:04 07:04 11:27 WBC 16.5 H (3.8-10.6) k/uL RBC (4.30-5.90) m/uL Hgb (13.0-17.5) gm/dL Neutrophils # 13.7 H (1.3-7.7) k/uL Lymphocytes # (1.0-4.8) k/uL ABG pH 7.19 L* (7.35-7.45) ABG pCO2 63 H (35-45) mmHg ABG pO2 >400 H (83-108) mmHg ABG Total CO2 26 H (19-24) mmol/L ABG O2 Saturation 100.0 H (94-97) % Sodium 136 L (137-145) mmol/L Potassium 5.7 H (3.5-5.1) mmol/L Chloride 97 L (98-107) mmol/L BUN 35 H (9-20) mg/dL Creatinine 1.33 H (0.66-1.25) mg/dL Glucose 112 H (74-99) mg/dL Calcium (8.4-10.2) mg/dL AST 61 H (17-59) U/L ALT 84 H (4-49) U/L Alkaline Phosphatase 131 H (38-126) U/L Procalcitonin (0.02-0.09) ng/mL 12/09/22 12/10/22 12/10/22 Range/Units 15:06 04:14 04:20 WBC (3.8-10.6) k/uL RBC (4.30-5.90) m/uL Hgb (13.0-17.5) gm/dL Neutrophils # (1.3-7.7) k/uL Lymphocytes # (1.0-4.8) k/uL ABG pH (7.35-7.45) ABG pCO2 (35-45) mmHg ABG pO2 130 H (83-108) mmHg ABG Total CO2 (19-24) mmol/L ABG O2 Saturation 99.3 H (94-97) % Sodium 133 L (137-145) mmol/L Potassium 5.2 H (3.5-5.1) mmol/L Chloride (98-107) mmol/L BUN 27 H (9-20) mg/dL Creatinine (0.66-1.25) mg/dL Glucose 153 H (74-99) mg/dL Calcium 7.3 L (8.4-10.2) mg/dL AST (17-59) U/L ALT (4-49) U/L Alkaline Phosphatase (38-126) U/L Procalcitonin 0.17 H (0.02-0.09) ng/mL 12/10/22 Range/Units 05:21 WBC 13.7 H (3.8-10.6) k/uL RBC 3.93 L (4.30-5.90) m/uL Hgb 12.6 L (13.0-17.5) gm/dL Neutrophils # 13.0 H (1.3-7.7) k/uL Lymphocytes # 0.4 L (1.0-4.8) k/uL ABG pH (7.35-7.45) ABG pCO2 (35-45) mmHg ABG pO2 (83-108) mmHg ABG Total CO2 (19-24) mmol/L ABG O2 Saturation (94-97) % Sodium (137-145) mmol/L Potassium (3.5-5.1) mmol/L Chloride (98-107) mmol/L BUN (9-20) mg/dL Creatinine (0.66-1.25) mg/dL Glucose (74-99) mg/dL Calcium (8.4-10.2) mg/dL AST (17-59) U/L ALT (4-49) U/L Alkaline Phosphatase (38-126) U/L Procalcitonin (0.02-0.09) ng/mL Microbiology - Last 24 Hours (Table) 12/09/22 11:47 Gram Stain - Preliminary Sputum Sputum Culture - Preliminary
[2022-12-10] MEDS: IPRATROPIUM-ALBUTEROL 3 ML NEB INHALATION SCH ×4 (07:44→20:25)
[2022-12-10] MEDS: CHLORHEXIDINE GLUCONATE 15 ML CUP MUCOUS MEM SCH ×2 (08:49→22:08)
[2022-12-10] MEDS: PANTOPRAZOLE 40 MG/10 ML VIAL IVP SCH (08:50)
[2022-12-10] MEDS: GABAPENTIN 300 MG CAP PO SCH ×3 (08:50→22:08)
[2022-12-10] MEDS: METOPROLOL TARTRATE 12.5 MG TAB PO SCH ×2 (08:50→22:08)
[2022-12-10] MEDS: RIVAROXABAN 2.5 MG TABLET PO SCH ×2 (08:52→22:08)
[2022-12-10] MEDS: AZITHROMYCIN 500 MG TAB PO SCH (08:52)
[2022-12-10] MEDS ORDERED: VANCOMYCIN 1,250 MG in SODIUM CHLORIDE 0.9% 250 ML IVPB SCH (09:00)
--- NOTE | 2022-12-10 10:37 | US ---
EXAMINATION TYPE: US liver DATE OF EXAM: 12/10/2022 COMPARISON: NONE CLINICAL INDICATION: Male, 77 years old with history of elevated LFTs; Intubated ICU patient, elevate d lft's TECHNIQUE: Multiple sonographic images of the right upper quadrant are obtained. FINDINGS: EXAM MEASUREMENTS: Liver Length: 12.6 cm Gallbladder Wall: 0.2 cm CBD: 0.4 cm Right Kidney: 9.1 x 3.5 x 4.5 cm Pancreas: wnl Liver: wnl Gallbladder: multiple shadowing stones seen Evidence for sonographic Abel's sign: no CBD: wnl Right Kidney: wnl The pancreas is within normal limits. The visualized liver is within normal limits without focal lesi on. Multiple gallstones identified without evidence of wall thickening or pericholecystic fluid. Per brusher operator, negative sonographic Abel sign. Common bile duct is within normal limits. Right kidney is unremarkable without evidence of hydronephrosis, nephrolithiasis, or contour deforming solid mass . Cortical medullary differentiation maintained. IMPRESSION: Cholelithiasis without ultrasound evidence for acute cholecystitis.
--- NOTE | 2022-12-10 11:21 | P.PN ---
Subjective Progress Note Date: 12/10/22 Hospital Course: 77-year-old male with a past medical history of coronary artery disease, hypertension, hyperlipidemia, diastolic heart failure with previously known EF of 60-65%, COPD home oxygen dependent 3 L, pulmonary hypertension, history of CVA with reports of memory impairment on low dose Xarelto, history of pulmonary emboli, and history of previous alcohol abuse presented with shortness of breath. Upon arrival to our facility patient was found to be in respiratory distress with tachypneic labored respirations at 24 breaths per minute, tachycardic with heart rate 140s, hypertensive a blood pressure 162/105, temp 97.9F and hypoxic requiring placement on BiPAP. EKG was completed showing sinus tachycardia at 145 bpm. Chest x-ray reporting scattered lung field infiltrates concerning for atypical pneumonia. CBC showing leukocytosis with WBC count of 16.5 with left shift with neutrophils of 13.7. BMP revealing hyperkalemia with potassium of 5.7, and an acute kidney injury with BUN 35, creatinine 1.33, and GFR of 51 with baseline creatinine of 0.9. Liver profile revealing transaminitis with acutely elevated LFTs with AST of 61, ALT of 84, and alkaline phosphatase of 131,Troponin 0.025 and pro-BMP of 102. Influenza A, influenza B, RSV, and Covid PCR were completed all with negative findings. Patient was subsequently intubated in the ER due to hypoxia and increased work of breathing while on BiPAP. Patient was transferred to the medical ICU. Subjective: Patient seen and examined at bedside. No acute events overnight. Patient currently remains intubated and sedated. Pertinent positives and negatives as discussed above, a complete review of systems was performed and all other systems are negative. Vitals Signs Reviewed. General: Intubated and sedated Derm: warm, dry Head: atraumatic, normocephalic, symmetric Eyes: Pupils equal and reactive Mouth: no lip lesion, mucus membranes moist Cardiovascular: S1S2 reg, no murmur Lungs: Bilateral rhonchi, intubated Abdominal: soft, nondistended, no appreciable organomegaly Ext: no gross muscle atrophy, no edema, no contractures Neuro: Sedated Psych: Unable to assess Data Reviewed Today: Pertinent Labs: WBC 13.7, hemoglobin 12.6, pH 7.36, pCO2 40, sodium 133, potassium 5.2, creatinine 1.01, pro calcitonin 0.17 Imaging: Chest x-ray independently interpreted, shows flattened diaphragms consistent with COPD, no significant opacities Liver ultrasound report reviewed, shows cholelithiasis, liver within normal limits Assessment and Plan: Patient is critically ill, currently intubated and sedated in the medical ICU. Active: Sepsis secondary to pneumonia Acute on chronic respiratory failure with hypoxia and hypercapnia COPD with acute exacerbation Transaminitis -Currently intubated and sedated -On vancomycin, dosed based on trough levels, monitor for renal toxicity with daily BMP -Also on cefepime 2 g IV every 12 hours and azithromycin 500 mg daily -Sputum and blood cultures pending -Pulmonology following, patient currently on bronchodilators and Solu-Medrol 60 mg IV every 6 hours -Cardiology note reviewed, no evidence of ischemia or arrhythmia -Liver ultrasound unremarkable, repeat liver function testing for tomorrow Resolved: Sinus tachycardia Hypertensive urgency Acute kidney injury Chronic: Pulmonary hypertension Chronic diastolic heart failure with previously known EF of 60-65% History of coronary artery disease History of hypertension History of hyperlipidemia History of CVA with reports of memory impairment on low-dose xarelto History of pulmonary emboli History of previous alcohol abuse with last drink being in 2015 DVT ppx: xarelto Code status: DO NOT RESUSCITATE Anticipated discharge place: Pending clinical course Anticipated discharge time: Pending clinical course Objective - Vital Signs Vital signs: Vital Signs Temp 97.1 F L 12/10/22 08:00 Pulse 78 12/10/22 10:00 Resp 26 H 12/10/22 10:00 BP 124/61 12/10/22 10:00 Pulse Ox 98 12/10/22 10:00 FiO2 35 12/10/22 10:00 Intake & Output 12/09/22 12/10/22 12/10/22 18:59 06:59 18:59 Intake Total 209.946 1391.491 996.911 Output Total 550 1030 280 Balance -401.544 755.491 716.911 Weight 71.9 kg Intake: IV 130 1560 520 Sodium Chloride 0.9% 1, 130 1560 520 000 ml @ 130 mls/hr IV . Q7H42M [facility] Rx#:[id number] Intake, IV Titration 18.456 165.491 386.911 Amount Cefepime 2 gm In Sodium 100 Chloride 0.9% 100 ml @ 25 mls/hr IVPB Q12H [facility] Rx# :[id number] Vancomycin 1,250 mg In 250 Sodium Chloride 0.9% 250 ml @ 125 mls/hr IVPB Q24HR [facility] Rx#:[id number] propofoL 1,000 mg In 18.456 165.491 36.911 Empty Bag 1 bag @ 15 MCG/ KG/MIN 6.328 mls/hr IV . [id number] [facility] Rx#:[id number] Tube Feeding 10 Other 60 80 Output: Gastric Drainage 200 600 Urine 350 430 280 Other: Voiding Method Indwelling Catheter Indwelling Catheter Indwelling Catheter - Labs CBC & Chem 7: 12/10/22 05:21 12/10/22 04:14 Labs: Abnormal Lab Results - Last 24 Hours (Table) 12/09/22 12/09/22 12/10/22 Range/Units 11:27 15:06 04:14 WBC (3.8-10.6) k/uL RBC (4.30-5.90) m/uL Hgb (13.0-17.5) gm/dL Neutrophils # (1.3-7.7) k/uL Lymphocytes # (1.0-4.8) k/uL ABG pH 7.19 L* (7.35-7.45) ABG pCO2 63 H (35-45) mmHg ABG pO2 >400 H (83-108) mmHg ABG Total CO2 26 H (19-24) mmol/L ABG O2 Saturation 100.0 H (94-97) % Sodium 133 L (137-145) mmol/L Potassium 5.2 H (3.5-5.1) mmol/L BUN 27 H (9-20) mg/dL Glucose 153 H (74-99) mg/dL Calcium 7.3 L (8.4-10.2) mg/dL Procalcitonin 0.17 H (0.02-0.09) ng/mL 12/10/22 12/10/22 Range/Units 04:20 05:21 WBC 13.7 H (3.8-10.6) k/uL RBC 3.93 L (4.30-5.90) m/uL Hgb 12.6 L (13.0-17.5) gm/dL Neutrophils # 13.0 H (1.3-7.7) k/uL Lymphocytes # 0.4 L (1.0-4.8) k/uL ABG pH (7.35-7.45) ABG pCO2 (35-45) mmHg ABG pO2 130 H (83-108) mmHg ABG Total CO2 (19-24) mmol/L ABG O2 Saturation 99.3 H (94-97) % Sodium (137-145) mmol/L Potassium (3.5-5.1) mmol/L BUN (9-20) mg/dL Glucose (74-99) mg/dL Calcium (8.4-10.2) mg/dL Procalcitonin (0.02-0.09) ng/mL Microbiology - Last 24 Hours (Table) 12/09/22 11:47 Gram Stain - Preliminary Sputum Sputum Culture - Preliminary
[2022-12-10] MEDS: methylPREDNISolone SOD SUCCI 125 MG/2 ML VIAL IV SCH ×3 (12:11→23:33)
--- NOTE | 2022-12-10 13:15 | P.PN ---
Subjective Progress Note Date: 12/10/22 Principal diagnosis: Hypercapnic and hypoxic respiratory failure Visit 76-year-old male patient presented to [facility] department because of worsening shortness of breath. The patient is known to have severe COPD with an FEV1 of 49% of predicted at baseline. He has underlying dementia, hypertension and hyperlipidemia and previous history of pulmonary embolism and he has been ma intained on long-term xarelto . I was unable to interview the patient. As by the time I arrived, he was having agonal breathing while being on a BiPAP. I came to find other the patient was already being supported with BiPAP since he came in his breathing was progressively getting worse. He was unable to provide any history. He was unresponsive, and at that point, I intubated this patient in the emergency department. Currently is intubated on a mechanical ventilator. Is on assist-control at the rate of 26, tidal volume of 400, FiO2 of 100% with a PEEP of 5. Most recent blood pressure is 159/90. He is on propofol running at 40 mcg/kg/m. Intubation process was done without any complications. Chest x-ray is consistent with you. Post intubation chest x-rays pending. Meanwhile, his blood work from today showed a basic of 16.9 with a hemoglobin of 15 and a platelet count of 336. Normal coagulation profile. BUN is at 35 with a creatinine of 1.38. Sodium is 136. Potassium level is at 5.7. LFTs are slightly elevated with an AST of 61, ALT of 84, alkaline phosphatase of 131, p roBNP is nonelevated at 102 and the patient has a negative Covid 19 testing, negative influenza and negative RSV. Blood gases pending. Post intubation chest x-rays pending. He has not required any pressors. He is afebrile. He was started on Rocephin and Zithromax and is also on IV Solu-Medrol. No reported chest pain. EKG showed no ischemic changes. It is consistent with sinus tachycardia. I am seeing this patient in follow-up 12/10/2022 in the intensive care unit. He remains intubated on mechanical ventilator with settings of assist control, respiratory rate 26, tidal volume 450, FiO2 40%, PEEP of 5. ABGs done on the settings show PO2 130, pCO2 of 40, pH of 7.36. Patient's FiO2 is dropped 35%. Chest x-ray from this morning shows endotracheal tube approximately 2 cm above the armando, improved bibasilar infiltrates, small right pleural effusion, and chronic COPD changes. Sputum culture is pending. Patient is covered on a combination of Zithromax, cefepime, and vancomycin. Patient has been afebrile overnight. Procalcitonin level was only mildly elevated at 0.17. Patient's CBC shows a WBC count down to 13.7, hemoglobin 12.6, hematocrit 39.3, platelets 249,000. BMP from this morning shows a sodium 133, potassium 5.2, chloride 106, serum CO2 24, BUN of 27, creatinine 1.01, glucose 153. Patient is currently sedated on propofol 20 mics per kilogram per minute. He does wake up and follow commands to verbal stimulation. So has normal saline infusing at 130 ML's per hour. He has not required any vasopressors. Urine output in the order of 40-50 mL an hour. He has not been started on tube feeds yet. Peak airway pressures are 35 and plateau pressure 17. He remains on bronchodilators, IV Solu-Medrol. Patient is mildly elevated, and a liver ultrasound is pending. Vital signs are stable at this time. Objective - Vital Signs Vital signs: Vital Signs Temp 98.1 F 12/10/22 04:00 Pulse 95 12/10/22 08:04 Resp 26 H 12/10/22 07:00 BP 126/61 12/10/22 07:00 Pulse Ox 99 12/10/22 07:00 FiO2 40 12/10/22 07:44 Intake & Output 12/09/22 12/10/22 12/10/22 18:59 06:59 18:59 Intake Total 239.741 7805.491 166.911 Output Total 550 1030 25 Balance -401.544 755.491 141.911 Weight 71.9 kg Intake: IV 130 1560 130 Sodium Chloride 0.9% 1, 130 1560 130 000 ml @ 130 mls/hr IV . Q7H42M [facility] Rx#:[id number] Intake, IV Titration 18.456 165.491 36.911 Amount propofoL 1,000 mg In 18.456 165.491 36.911 Empty Bag 1 bag @ 15 MCG/ KG/MIN 6.328 mls/hr IV . [id number] [facility] Rx#:[id number] Other 60 Output: Gastric Drainage 200 600 Urine 350 430 25 Other: Voiding Method Indwelling Catheter Indwelling Catheter - Exam General: Patient is currently sedated, responds to verbal commands, synchronous with mechanical ventilator. Head: Atraumatic. There was no scleral icterus or corneal arcus. Mucous membranes were moist. Neck: supple without jugular venous distention Lungs: have equal air movement with minimal end expiratory wheeze. No crackles, rhonchi, or focal dullness. Patient is intubated on mechanical ventilator Heart: S1 and S2, regular rhythm, no extra heart sounds Abdominal: abdomen is nondistended, normal bowel sounds, no guarding or rigidity Extremities: revealed easily palpable radial, femoral and pedal pulses. There was no cyanosis, clubbing or edema Skin: revealed no evidence of significant rashes, suspicious appearing nevi or other concerning lesions. Neurologically: the patient is currently sedated on a mechanical ventilator. He does awake and respond appropriately to verbal stimulation. No focal deficits - Labs CBC & Chem 7: 12/10/22 05:21 12/10/22 04:14 Labs: Abnormal Lab Results - Last 24 Hours (Table) 12/09/22 12/09/22 12/10/22 Range/Units 11:27 15:06 04:14 WBC (3.8-10.6) k/uL RBC (4.30-5.90) m/uL Hgb (13.0-17.5) gm/dL Neutrophils # (1.3-7.7) k/uL Lymphocytes # (1.0-4.8) k/uL ABG pH 7.19 L* (7.35-7.45) ABG pCO2 63 H (35-45) mmHg ABG pO2 >400 H (83-108) mmHg ABG Total CO2 26 H (19-24) mmol/L ABG O2 Saturation 100.0 H (94-97) % Sodium 133 L (137-145) mmol/L Potassium 5.2 H (3.5-5.1) mmol/L BUN 27 H (9-20) mg/dL Glucose 153 H (74-99) mg/dL Calcium 7.3 L (8.4-10.2) mg/dL Procalcitonin 0.17 H (0.02-0.09) ng/mL 04/20/23 04/20/23 Range/Units 04:20 05:21 WBC 13.7 H (3.8-10.6) k/uL RBC 3.93 L (4.30-5.90) m/uL Hgb 12.6 L (13.0-17.5) gm/dL Neutrophils # 13.0 H (1.3-7.7) k/uL Lymphocytes # 0.4 L (1.0-4.8) k/uL ABG pH (7.35-7.45) ABG pCO2 (35-45) mmHg ABG pO2 130 H (83-108) mmHg ABG Total CO2 (19-24) mmol/L ABG O2 Saturation 99.3 H (94-97) % Sodium (137-145) mmol/L Potassium (3.5-5.1) mmol/L BUN (9-20) mg/dL Glucose (74-99) mg/dL Calcium (8.4-10.2) mg/dL Procalcitonin (0.02-0.09) ng/mL Microbiology - Last 24 Hours (Table) 12/09/22 11:47 Gram Stain - Preliminary Sputum Sputum Culture - Preliminary Assessment and Plan Assessment: Altered mentation secondary to respiratory failure. Patient was intubated and placed on propofol for sedation. Patient does wake up and respond appropriately to commands on minimal sedation. Acute COPD exacerbation with questionable pneumonia. The chest x-ray is more consistent with COPD. There is some methods scattered lower lobe pulmonary infiltrates which have improved on today's x-ray. Procalcitonin level was only minimally elevated at 0.17 Acute hypoxic/hypercapnic respiratory failure secondary to exacerbation Chronic hypoxic respiratory failure and the patient will maintain oxygen at 3 L on outpatient basis Previous history of hospitalization for pneumococcal pneumonia approximately year ago Coronary artery disease Dementia Hiatal hernia Overactive bladder History of smoking quit in 2016 History of alcoholism quit in 2016 Osteoarthritis Previous history of pulmonary embolism maintain on long-term anticoagulants Hypertension Hyperlipidemia Acid reflux Previous history of TIA Plan Patient remains on the mechanical ventilator FIO2 was reduced to 35%, and can be weaned maintaining O2 saturation greater than 92% Continue daily interruptions of sedation to assess readiness for weaning Continue DuoNeb nebulized treatments [id number] Increase the patient Solu-Medrol 60mg every q 6hr Add budesonide and formoterol inhalation Patient is on a combination of cefepime, azithromycin and vancomycin was added this morning by internal medicine Liver ultrasound is pending IV Protonix Resume all medications including anticoagulants Start the patient on tube feeds and consult dietary We will continue to follow and monitor this patient closely in ICU I have personally seen and examined the patient, performed the documentation and the assessment and plan as written. Number of minutes spent on the visit:30 The joint evaluation that was done along with the nurse practitioner. The patient was intubated yesterday in emergency and the patient currently is in the intensive care unit. The patient has an acute COPD exacerbation with secondary respiratory failure. The patient was in acute hypoxic and hypercapnic res piratory failure. Currently, the patient is intubated and sedated. Chest x-ray shows some increased interstitial markings bilaterally. There is no evidence of any acute consolidation or pneumonia. There may be a small right-sided pleural effusion. The patient has patchy bilateral interstitial infiltrates. The patient's echoes at 13.7. The acid-base status is improved and the blood gas on oxygen is also improved. The patient's FiO2 is down to 35%. Peak air pressures 34. Sputum cultures still pending for now. Remains on bronchodilators. Remains on steroids. Remains on broad-spectrum antibiotics. Continue cefepime and Zithromax and discontinue the vancomycin as there is no in dication for underlying MRSA infection. We will also initiate enteral feeding for nutritional support We'll keep the patient intubated for today, sedated We'll continue to follow. This evaluation was done in more than 30 minutes. Critical care evaluation. Time with Patient: Greater than 30
--- NOTE | 2022-12-10 15:22 | CDI ---
Documentation Clarification Form Date: 12/10/2022 2:57:04 PM From: Glendy Shannon RN CCDS Phone: [phone] Admit Date: 12/09/2022 8:30:00 AM Patient Name: Ricki Hess Visit Number: [id number] Discharge Date: ATTENTION: The Clinical Documentation Specialists (CDI) and [facility] Coding Staff appreciate your assistance in clarifying documentation. Please respond to the clarification below the line at the bottom and electronically sign. The CDI & [facility] Coding staff will review the response and follow-up if needed. Please note: Queries are made part of the Legal Health Record. If you have any questions, please contact the author of this message via ITS. Dr. Yves Stovall Your patient has the documented symptom of Altered Mentation 12/09, Pulmonology consult. Additional clarification regarding the etiology/cause of this symptom is requested. History/Risk Factors: 77 y/o male presents to the ED with worsening shortness of breath, while in the ED the patient was on BiPap and having agonal breathing. Medical History: Severe COPD, HTN, HLD, Dementia and on home oxygen 3L. 12/09, Pulmonary consult. Clinical Indicators: VSS: 12/09 B/P162/105; HR 133; RR 20; Spo2 97% BiPaP 12/09,Pulmonary consult: Lung sounds are markedly diminished and the patient had diffuse expiratory wheezes throughout the lung hernandes bilaterally. Labs: 12/09 Blood gas Right radial PH 7.19; pCO2 63; pO2 .400; HCO3 24; CO2 26; O2 Saturation 100.0; ABG Base Excess -4.4; Jeff test yes, FiO2 100 CXR, 12/09: Patchy and interstitial opacities at the left lung base. Treatment: 12/09 BiPaP; Intubation on mechanical ventilator; Duoneb Inhalation; Solumedrol IV; Pulmicort Inhalation; Perforomist Inhalation; Please clarify the etiology of the symptom of Altered Mentation: [ x ] Metabolic Encephalopathy due to respiratory failure [ ] Other condition (please specify) [ ] Unable to determine (Template Last Revised: September 2020) MTDD
[2022-12-10] MEDS: BUDESONIDE 1 MG/2 ML NEBU INHALATION SCH (20:25)
[2022-12-10] MEDS: FORMOTEROL FUMARATE 20 MCG/2 ML NEBU INHALATION SCH (20:25)
[2022-12-11] MEDS ORDERED: VANCOMYCIN 1,250 MG in SODIUM CHLORIDE 0.9% 250 ML IVPB SCH ×2
[2022-12-11] MEDS: CEFEPIME 2 GM in SODIUM CHLORIDE 0.9% 100 ML IVPB SCH ×3 (03:13→19:54)
[2022-12-11] MEDS: methylPREDNISolone SOD SUCCI 125 MG/2 ML VIAL IV SCH ×3 (05:04→17:36)
[2022-12-11 05:14] LABS: Basophils % (A) 0 %; Eosinophils % (A) 0 %; HCT 36.5 % (39.0-53.0); HGB 11.4 gm/dL (13.0-17.5); Lymphocytes # (A) 0.6 k/uL (1.0-4.8); Lymphocytes % (A) 4 %; MCH 31.1 pg (25.0-35.0); MCHC 31.3 g/dL (31.0-37.0); MCV 99.5 fL (80.0-100.0); Mean Platelet Volume 7.3; Monocytes # (A) 0.3 k/uL (0-1.0); Monocytes % (A) 2 %; Neutrophils # (A) 13.3 k/uL (1.3-7.7); Neutrophils % (A) 93 %; Platelet Count 245 k/uL (150-450); RBC 3.67 m/uL (4.30-5.90); RDW 13.1 % (11.5-15.5); WBC 14.2 k/uL (3.8-10.6)
[2022-12-11 05:58] LABS: African American GFR (CKD) >90 (>60 ml/min/1.73 sqM); Anion Gap 6 mmol/L; Blood Urea Nitrogen 29 mg/dL (9-20); Calcium 7.9 mg/dL (8.4-10.2); Carbon Dioxide 22 mmol/L (22-30); Chloride 110 mmol/L (98-107); Glucose 211 mg/dL (74-99); Non-African American GFR(CKD) 81 (>60 ml/min/1.73 sqM); Potassium 4.5 mmol/L (3.5-5.1); Sodium 138 mmol/L (137-145)
[2022-12-11 06:08] LABS: Allen Test Performed? Yes
[2022-12-11 06:28] LABS: ABG Base Excess -3.2 mmol/L; ABG HCO3 23 mmol/L (21-25); ABG Oxygen Saturation 95.6 % (94-97); ABG PCO2 43 mmHg (35-45); ABG PH 7.33 (7.35-7.45); ABG PO2 82 mmHg (83-108); ABG TCO2 24 mmol/L (19-24)
--- NOTE | 2022-12-11 06:47 | XR ---
EXAMINATION TYPE: XR chest 1V portable DATE OF EXAM: 12/11/2022 CLINICAL HISTORY: Difficulty breathing progress study. TECHNIQUE: Single AP portable semiupright view of the chest is obtained. COMPARISON: Chest x-ray from one day earlier and older studies. FINDINGS: Stable endotracheal and orogastric tubes. Underlying chronic emphysematous change redemonstrated. No suspicious new focal airspace opacity, ple ural effusion, or pneumothorax seen bilaterally. Cardiac silhouette size is stable and within normal limits. Osseous structures are intact. IMPRESSION: Chronic emphysematous change without acute pulmonary process. No significant change from one day earlier.
--- NOTE | 2022-12-11 08:08 | P.PN ---
Subjective Progress Note Date: 12/11/22 PROGRESS NOTE The patient is a 77-year-old male with known history of severe COPD, history of dementia, hypertension, hyperlipidemia, prior history of pulmonary embolism and preserved systolic function in November 2021 who presented to the hospital with symptoms of progressive dyspnea and tachycardia. The patient deteriorated with agonal breathing requiring mechanical ventilation. He is intubated. This time, and sinus tachycardia with no evidence of malignant arrhythmia. There was a question of atrial flutter but reviewing the EKG is sinus tachycardia. The patient has no documented history of obstructive CAD, he has a prior history of congestive heart failure with preserved systolic function as well has a history of carotid obstructive disease. In the emergency room his NT proBNP was 102. His chest x-ray showed patchy infiltrate that could represent pneumonia. He was hyperkalemic in the emergency room, his troponin was normal and he had abnormal renal functions. December 10: The patient remains intubated and sedated. He is in sinus mechanism. He underwent an echocardiogram that showed a normal systolic function with no significant valvular disease. Hemodynamically he stable. His urinary output is stable. There is no evidence of malignant arrhythmia. His chest x-ray shows improvement in his interstitial opacities with evidence of COPD. December 11: The patient remains intubated and sedated, he is in sinus mechanism without malignant arrhythmia. He has no evidence of atrial fibrillation. Hemodynamically he is stable. He is tolerating the beta jane. He continues to be on antibiotics. His urine output is stable. Medications: Gabapentin, metoprolol 12.5 mg twice a day, Xarelto PHYSICAL EXAMINATION: Blood pressure 148/78 heart rate 89, intubated and sedated LUNGS: Decreased breath sounds anteriorly HEART: Regular rate and rhythm, S1, S2. No S3. systolic ejection murmur ABDOMEN: Soft, nontender, no organomegaly EXTREMETIES: No edema LAB: WBC 14.2, hemoglobin 11.4. Potassium 4.5. BUN 29, creatinine 0.91. IMPRESSION: 1. Respiratory failure with exacerbation of COPD and possible pneumonia 2. History of severe COPD 3. Sinus tachycardia, improved 4. History of dementia 5. Prior history of pulmonary embolism PLAN: 1. Continue present therapy 2. We will see him on as-needed basis, please feel free to call us for any question Objective - Vital Signs Vital signs: Vital Signs Temp 98.2 F 12/11/22 04:00 Pulse 89 04/21/23 07:00 Resp 26 H 12/11/22 07:00 BP 148/78 12/11/22 07:00 Pulse Ox 97 12/11/22 07:00 FiO2 30 12/11/22 04:17 Intake & Output 12/10/22 12/11/22 12/11/22 18:59 06:59 18:59 Intake Total 2187.376 5978.032 70 Output Total 615 470 70 Balance 1036.627 594.032 0 Weight 71.9 kg Intake: IV 1020 480 40 Sodium Chloride 0.9% 1, 1020 480 40 000 ml @ 40 mls/hr IV . Q24H [facility] Rx#:[id number] Intake, IV Titration 431.627 174.032 Amount Cefepime 2 gm In Sodium 100 Chloride 0.9% 100 ml @ 25 mls/hr IVPB Q12H [facility] Rx# :[id number] Vancomycin 1,250 mg In 250 Sodium Chloride 0.9% 250 ml @ 125 mls/hr IVPB Q24HR [facility] Rx#:[id number] propofoL 1,000 mg In 81.627 174.032 Empty Bag 1 bag @ 15 MCG/ KG/MIN 6.328 mls/hr IV . [id number] [facility] Rx#:[id number] Tube Feeding 90 260 30 Other 110 150 Output: Urine 615 470 70 Other: Voiding Method Indwelling Catheter Indwelling Catheter # Bowel Movements 1 - Labs CBC & Chem 7: 12/11/22 04:48 12/11/22 04:48 Labs: Abnormal Lab Results - Last 24 Hours (Table) 12/11/22 12/11/22 12/11/22 Range/Units 04:48 04:48 06:27 WBC 14.2 H (3.8-10.6) k/uL RBC 3.67 L (4.30-5.90) m/uL Hgb 11.4 L (13.0-17.5) gm/dL Hct 36.5 L (39.0-53.0) % Neutrophils # 13.3 H (1.3-7.7) k/uL Lymphocytes # 0.6 L (1.0-4.8) k/uL ABG pH 7.33 L (7.35-7.45) ABG pO2 82 L (83-108) mmHg Chloride 110 H (98-107) mmol/L BUN 29 H (9-20) mg/dL Glucose 211 H (74-99) mg/dL Calcium 7.9 L (8.4-10.2) mg/dL Microbiology - Last 24 Hours (Table) 12/09/22 11:47 Gram Stain - Preliminary Sputum Sputum Culture - Preliminary Gram Neg Bacilli
[2022-12-11] MEDS: METOPROLOL TARTRATE 12.5 MG TAB PO SCH ×2 (08:37→20:42)
[2022-12-11] MEDS: CHLORHEXIDINE GLUCONATE 15 ML CUP MUCOUS MEM SCH ×2 (08:37→20:32)
[2022-12-11] MEDS: GABAPENTIN 300 MG CAP PO SCH ×3 (08:37→22:51)
[2022-12-11] MEDS: PANTOPRAZOLE 40 MG/10 ML VIAL IVP SCH (08:37)
[2022-12-11] MEDS: AZITHROMYCIN 500 MG TAB PO SCH (08:38)
[2022-12-11] MEDS: RIVAROXABAN 2.5 MG TABLET PO SCH ×2 (08:38→20:42)
[2022-12-11] MEDS: IPRATROPIUM-ALBUTEROL 3 ML NEB INHALATION SCH ×4 (09:00→20:24)
[2022-12-11] MEDS: FORMOTEROL FUMARATE 20 MCG/2 ML NEBU INHALATION SCH ×2 (09:00→20:24)
[2022-12-11] MEDS: BUDESONIDE 1 MG/2 ML NEBU INHALATION SCH ×2 (09:00→20:25)
--- NOTE | 2022-12-11 10:42 | P.PN ---
Subjective Progress Note Date: 12/11/22 Hospital Course: 77-year-old male with a past medical history of coronary artery disease, hypertension, hyperlipidemia, diastolic heart failure with previously known EF of 60-65%, COPD home oxygen dependent 3 L, pulmonary hypertension, history of CVA with reports of memory impairment on low dose Xarelto, history of pulmonary emboli, and history of previous alcohol abuse presented with shortness of breath. Upon arrival to our facility patient was found to be in respiratory distress with tachypneic labored respirations at 24 breaths per minute, tachycardic with heart rate 140s, hypertensive a blood pressure 162/105, temp 97.9F and hypoxic requiring placement on BiPAP. EKG was completed showing sinus tachycardia at 145 bpm. Chest x-ray reporting scattered lung field infiltrates concerning for atypical pneumonia. CBC showing leukocytosis with WBC count of 16.5 with left shift with neutrophils of 13.7. BMP revealing hyperkalemia with potassium of 5.7, and an acute kidney injury with BUN 35, creatinine 1.33, and GFR of 51 with baseline creatinine of 0.9. Liver profile revealing transaminitis with acutely elevated LFTs with AST of 61, ALT of 84, and alkaline phosphatase of 131,Troponin 0.025 and pro-BMP of 102. Influenza A, influenza B, RSV, and Covid PCR were completed all with negative findings. Patient was subsequently intubated in the ER due to hypoxia and increased work of breathing while on BiPAP. Patient was transferred to the medical ICU. Weaning sedation, possible extubation today Subjective: Patient seen and examined at bedside. No acute events overnight. Patient currently remains intubated and sedated. Plan to wean sedation and possible extubation today Pertinent positives and negatives as discussed above, a complete review of systems was performed and all other systems are negative. Vitals Signs Reviewed. General: Intubated and sedated Derm: warm, dry Head: atraumatic, normocephalic, symmetric Eyes: Pupils equal and reactive Mouth: no lip lesion, mucus membranes moist Cardiovascular: S1S2 reg, no murmur Lungs: Bilateral rhonchi, intubated Abdominal: soft, nondistended, no appreciable organomegaly Ext: no gross muscle atrophy, no edema, no contractures Neuro: Sedated Psych: Unable to assess Data Reviewed Today: Pertinent Labs: WBC 14.2, hemoglobin 11.4, sodium 138, creatinine 0.91, pH 7.33, pCO2 43 Imaging: Chest x-ray independently interpreted, shows flattened diaphragms consistent with COPD, no significant opacities, similar to yesterday Sputum cultures positive for gram-negative bacilli Assessment and Plan: Patient is critically ill, currently intubated and sedated in the medical ICU. Active: Sepsis secondary to pneumonia, gram-negative Acute on chronic respiratory failure with hypoxia and hypercapnia COPD with acute exacerbation Transaminitis -Currently intubated and sedated, continue to wean sedation, possible extubation today -Vancomycin discontinued -On cefepime 2 g IV every 12 hours and azithromycin 500 mg daily -Sputum positive for gram-negative bacilli and blood cultures no growth to date -Pulmonology following, patient currently on bronchodilators and Solu-Medrol 60 mg IV every 6 hours -Cardiology note reviewed, signing off -Liver ultrasound unremarkable, CMP tomorrow Resolved: Sinus tachycardia Hypertensive urgency Acute kidney injury Chronic: Pulmonary hypertension Chronic diastolic heart failure with previously known EF of 60-65% History of coronary artery disease History of hypertension History of hyperlipidemia History of CVA with reports of memory impairment on low-dose xarelto History of pulmonary emboli History of previous alcohol abuse with last drink being in 2015 DVT ppx: xarelto Code status: DO NOT RESUSCITATE Anticipated discharge place: Pending clinical course Anticipated discharge time: Pending clinical course Objective - Vital Signs Vital signs: Vital Signs Temp 98.5 F 12/11/22 08:00 Pulse 78 12/11/22 09:21 Resp 26 H 12/11/22 09:00 BP 150/74 12/11/22 09:00 Pulse Ox 97 12/11/22 09:00 FiO2 30 12/11/22 08:59 Intake & Output 12/10/22 12/11/22 12/11/22 18:59 06:59 18:59 Intake Total 9740.068 2975.032 192.097 Output Total 615 470 140 Balance 1036.627 594.032 52.097 Weight 71.9 kg Intake: IV 1020 480 80 Sodium Chloride 0.9% 1, 1020 480 80 000 ml @ 40 mls/hr IV . Q24H [facility] Rx#:[id number] Intake, IV Titration 431.627 174.032 52.097 Amount Cefepime 2 gm In Sodium 100 Chloride 0.9% 100 ml @ 25 mls/hr IVPB Q12H [facility] Rx# :[id number] Vancomycin 1,250 mg In 250 Sodium Chloride 0.9% 250 ml @ 125 mls/hr IVPB Q24HR [facility] Rx#:[id number] propofoL 1,000 mg In 81.627 174.032 52.097 Empty Bag 1 bag @ 15 MCG/ KG/MIN 6.328 mls/hr IV . [id number] [facility] Rx#:[id number] Tube Feeding 90 260 60 Other 110 150 Output: Urine 615 470 140 Other: Voiding Method Indwelling Catheter Indwelling Catheter Indwelling Catheter # Bowel Movements 1 - Labs CBC & Chem 7: 12/11/22 04:48 12/11/22 04:48 Labs: Abnormal Lab Results - Last 24 Hours (Table) 12/11/22 12/11/22 12/11/22 Range/Units 04:48 04:48 06:27 WBC 14.2 H (3.8-10.6) k/uL RBC 3.67 L (4.30-5.90) m/uL Hgb 11.4 L (13.0-17.5) gm/dL Hct 36.5 L (39.0-53.0) % Neutrophils # 13.3 H (1.3-7.7) k/uL Lymphocytes # 0.6 L (1.0-4.8) k/uL ABG pH 7.33 L (7.35-7.45) ABG pO2 82 L (83-108) mmHg Chloride 110 H (98-107) mmol/L BUN 29 H (9-20) mg/dL Glucose 211 H (74-99) mg/dL Calcium 7.9 L (8.4-10.2) mg/dL Microbiology - Last 24 Hours (Table) 12/09/22 09:05 Blood Culture - Preliminary Blood 12/09/22 09:20 Blood Culture - Preliminary Blood 12/09/22 11:47 Gram Stain - Preliminary Sputum Sputum Culture - Preliminary Gram Neg Bacilli
[2022-12-11 11:32] LABS: Glucose,Whole Blood 166 mg/dL (70-110)
--- NOTE | 2022-12-11 12:00 | P.PN ---
Subjective Progress Note Date: 12/11/22 Visit 76-year-old male patient presented to [facility] department because of worsening shortness of breath. The patient is known to have severe COPD with an FEV1 of 49% of predicted at baseline. He has underlying dementia, hypertension and hyperlipidemia and previous history of pulmonary embolism and he has been maintained on long-term xarelto . I was unable to interview the patient. As by the time I arrived, he was having agonal breathing while being on a BiPAP. I came to find other the patient was already being supported with BiPAP since he came in his breathing was progressively getting worse. He was unable to provide any history. He was unresponsive, and at that point, I intubated this patient in the emergency department. Currently is intubated on a mechanical ventilator. Is on assist-control at the rate of 26, tidal volume of 400, FiO2 of 100% with a PEEP of 5. Most recent blood pressure is 159/90. He is on propofol running at 40 mcg/kg/m. Intubation process was done without any complications. Chest x-ray is consistent with you. Post intubation chest x-rays pending. Meanwhile, his blood work from today showed a basic of 16.9 with a hemoglobin of 15 and a platelet count of 336. Normal coagulation profile. BUN is at 35 with a creatinine of 1.38. Sodium is 136. Potassium level is at 5.7. LFTs are slightly elevated with an AST of 61, ALT of 84, alkaline phosphatase of 131, proBNP is nonelevated at 102 and the patient has a negative Covid 19 testing, negative influenza and negative RSV. Blood gases pending. Post intubation chest x-rays pending. He has not required any pressors. He is afebrile. He was started on Rocephin and Zithromax and is also on IV Solu-Medrol. No reported chest pain. EKG showed no ischemic changes. It is consistent with sinus tachycardia. I am seeing this patient in follow-up 12/10/2022 in the intensive care unit. He remains intubated on mechanical ventilator with settings of assist control, respiratory rate 26, tidal volume 450, FiO2 40%, PEEP of 5. ABGs done on the settings show PO2 130, pCO2 of 40, pH of 7.36. Patient's FiO2 is dropped 35%. Chest x-ray from this morning shows endotracheal tube approximately 2 cm above the armando, improved bibasilar infiltrates, small right pleural effusion, and chronic COPD changes. Sputum culture is pending. Patient is covered on a combination of Zithromax, cefepime, and vancomycin. Patient has been afebrile overnight. Procalcitonin level was only mildly elevated at 0.17. Patient's CBC shows a WBC count down to 13.7, hemoglobin 12.6, hematocrit 39.3, platelets 249,000. BMP from this morning shows a sodium 133, potassium 5.2, chloride 106, serum CO2 24, BUN of 27, creatinine 1.01, glucose 153. Patient is currently sedated on propofol 20 mics per kilogram per minute. He does wake up and follow commands to verbal stimulation. So has normal saline infusing at 130 ML's per hour. He has not required any vasopressors. Urine output in the order of 40-50 mL an hour. He has not been started on tube feeds yet. Peak airway pressures are 35 and plateau pressure 17. He remains on bronchodilators, IV Solu-Medrol. Patient is mildly elevated, and a liver ultrasound is pending. Vital signs are stable at this time. On today's evaluation of 12/11/2022, I'm seeing the patient for a follow-up. The patient remains intubated on a mechanical ventilator. This morning he is taken off the sedation and the patient is awake and alert and following simple commands. He remains on mechanical ventilator for now on assist control mode at the rate of 26, tidal volume of 450, FiO2 of 30% with a PEEP of 5. Blood gases from today shows a pH of 7.33 with a pCO2 of 43 and pO2 of 82 and this was an FiO2 of 30%. Chest x-ray from today shows emphysema without any acute abnormalities. The patient remains on a combination of bronchodilators and ster oids. The sputum sample was positive for pseudomonas aeruginosa and the patient is currently on IV cefepime and Zithromax has been discontinued. He remains on bronchodilators. He remains on steroids. He is also on long-term and coagulation with Xarelto 2.5 mg by mouth twice a day. He is also on normal saline at rate of 40 mL an hour. His cardiac rhythm is sinus. Urine output is adequate. The overall fluid balance has been +1.6 L over the past 24 hours. Objective - Vital Signs Vital signs: Vital Signs Temp 98.5 F 12/11/22 08:00 Pulse 89 12/11/22 11:00 Resp 26 H 12/11/22 11:00 BP 147/73 12/11/22 11:00 Pulse Ox 96 12/11/22 11:00 FiO2 30 12/11/22 08:59 Intake & Output 12/10/22 12/11/22 12/11/22 18:59 06:59 18:59 Intake Total 1436.056 0505.032 402.097 Output Total 615 470 250 Balance 1036.627 594.032 152.097 Weight 71.9 kg Intake: IV 1020 480 200 Sodium Chloride 0.9% 1, 1020 480 200 000 ml @ 40 mls/hr IV . Q24H [facility] Rx#:[id number] Intake, IV Titration 431.627 174.032 52.097 Amount Cefepime 2 gm In Sodium 100 Chloride 0.9% 100 ml @ 25 mls/hr IVPB Q12H [facility] Rx# :[id number] Vancomycin 1,250 mg In 250 Sodium Chloride 0.9% 250 ml @ 125 mls/hr IVPB Q24HR [facility] Rx#:[id number] propofoL 1,000 mg In 81.627 174.032 52.097 Empty Bag 1 bag @ 15 MCG/ KG/MIN 6.328 mls/hr IV . [id number] [facility] Rx#:[id number] Tube Feeding 90 260 150 Other 110 150 Output: Urine 615 470 250 Other: Voiding Method Indwelling Catheter Indwelling Catheter Indwelling Catheter # Bowel Movements 1 - Exam General responds to verbal commands, synchronous with mechanical ventilator. The patient was taken off sedation and the patient is following simple commands. Head: Atraumatic. There was no scleral icterus or corneal arcus. Mucous membranes were moist. Neck: supple without jugular venous distention Lungs: have equal air movement with minimal end expiratory wheeze. No crackles, rhonchi, or focal dullness. Patient is intubated on mechanical ventilator Heart: S1 and S2, regular rhythm, no extra heart sounds Abdominal: abdomen is nondistended, normal bowel sounds, no guarding or rigidity Extremities: revealed easily palpable radial, femoral and pedal pulses. There was no cyanosis, clubbing or edema Skin: revealed no evidence of significant rashes, suspicious appearing nevi or other concerning lesions. Neurologically: the patient is currently getting a sedation holiday He does awake and respond appropriately to verbal stimulation. No focal deficits - Labs CBC & Chem 7: 12/11/22 04:48 12/11/22 04:48 Labs: Abnormal Lab Results - Last 24 Hours (Table) 12/11/22 12/11/22 12/11/22 Range/Units 04:48 04:48 06:27 WBC 14.2 H (3.8-10.6) k/uL RBC 3.67 L (4.30-5.90) m/uL Hgb 11.4 L (13.0-17.5) gm/dL Hct 36.5 L (39.0-53.0) % Neutrophils # 13.3 H (1.3-7.7) k/uL Lymphocytes # 0.6 L (1.0-4.8) k/uL ABG pH 7.33 L (7.35-7.45) ABG pO2 82 L (83-108) mmHg Chloride 110 H (98-107) mmol/L BUN 29 H (9-20) mg/dL Glucose 211 H (74-99) mg/dL POC Glucose (mg/dL) (70-110) mg/dL Calcium 7.9 L (8.4-10.2) mg/dL 12/11/22 Range/Units 11:30 WBC (3.8-10.6) k/uL RBC (4.30-5.90) m/uL Hgb (13.0-17.5) gm/dL Hct (39.0-53.0) % Neutrophils # (1.3-7.7) k/uL Lymphocytes # (1.0-4.8) k/uL ABG pH (7.35-7.45) ABG pO2 (83-108) mmHg Chloride (98-107) mmol/L BUN (9-20) mg/dL Glucose (74-99) mg/dL POC Glucose (mg/dL) 166 H (70-110) mg/dL Calcium (8.4-10.2) mg/dL Microbiology - Last 24 Hours (Table) 12/09/22 11:47 Gram Stain - Final Sputum Sputum Culture - Final Pseudomonas aeruginosa 12/09/22 09:05 Blood Culture - Preliminary Blood 12/09/22 09:20 Blood Culture - Preliminary Blood Assessment and Plan Assessment: Altered mentation secondary to respiratory failure. Patient is getting a sedation holiday for now and he is following simple commands. He remains on a mechanical ventilator. Acute COPD exacerbation with questionable pneumonia. The chest x-ray is more consistent with COPD. There is some methods scattered lower lobe pulmonary infiltrates which have improved on today's x-ray. Procalcitonin level was only minimally elevated at 0.17 Pseudomonas aeruginosa in the sputum, colonization versus a true infection. Currently on IV cefepime. Acute hypoxic/hypercapnic respiratory failure secondary to exacerbation Chronic hypoxic respiratory failure and the patient will maintain oxygen at 3 L on outpatient basis Previous history of hospitalization for pneumococcal pneumonia approximately year ago Coronary artery disease Dementia Hiatal hernia Overactive bladder History of smoking quit in 2016 History of alcoholism quit in 2016 Osteoarthritis Previous history of pulmonary embolism maintain on long-term anticoagulants Hypertension Hyperlipidemia Acid reflux Previous history of TIA Cholelithiasis without evidence of any acute cholecystitis Plan Check set of weaning parameters Keep the patient off sedation for now We'll change the patient to spontaneous mode of breathing trial once weaning parameters all checked. The patient is currently on assist control mode. He'll be switched to pressure support of 7 and a PEEP of 5 and a follow-up blood gas debilitated 30 minutes in as the patient for possible extubation. Continue IV cefepime Continue DuoNeb nebulized treatments [id number] Increase the patient Solu-Medrol 60mg every q 6hr Add budesonide and formoterol inhalation IV Protonix Continue anticoagulants Hold enteral feeds for now it's patient for extubation today We'll continue to follow This evaluation was done in more than 30 minutes. Critical care evaluation.
[2022-12-11 18:15] LABS: Glucose,Whole Blood 143 mg/dL (70-110)
[2022-12-11] MEDS: SODIUM CHLORIDE 0.9% 1,000 ML IV SCH (22:54)
[2022-12-12] MEDS: cloNIDine HCL 0.1 MG TAB PO PRN ×3 (00:02→18:35)
[2022-12-12] MEDS: methylPREDNISolone SOD SUCCI 125 MG/2 ML VIAL IV SCH ×5 (00:27→23:03)
[2022-12-12 00:28] LABS: Glucose,Whole Blood 153 mg/dL (70-110)
[2022-12-12] MEDS ORDERED: MAG HYDROX/AL HYDROX/SIMETH 30 ML CUP PO PRN (01:03)
[2022-12-12] MEDS: CEFEPIME 2 GM in SODIUM CHLORIDE 0.9% 100 ML IVPB SCH ×3 (03:20→19:27)
[2022-12-12 05:34] LABS: Basophils % (A) 0 %; Eosinophils # (A) 0.1 k/uL (0-0.7); Eosinophils % (A) 0 %; HGB 11.5 gm/dL (13.0-17.5); Lymphocytes # (A) 0.4 k/uL (1.0-4.8); Lymphocytes % (A) 2 %; MCH 31.4 pg (25.0-35.0); MCHC 31.2 g/dL (31.0-37.0); MCV 100.8 fL (80.0-100.0); Mean Platelet Volume 7.3; Monocytes # (A) 0.6 k/uL (0-1.0); Monocytes % (A) 2 %; Neutrophils # (A) 22.7 k/uL (1.3-7.7); Neutrophils % (A) 95 %; Platelet Count 270 k/uL (150-450); RBC 3.67 m/uL (4.30-5.90); RDW 13.2 % (11.5-15.5); WBC 23.8 k/uL (3.8-10.6)
[2022-12-12 05:42] LABS: Calcium 8.2 mg/dL (8.4-10.2); Potassium 4.7 mmol/L (3.5-5.1)
--- NOTE | 2022-12-12 06:25 | XR ---
EXAMINATION TYPE: XR chest 1V portable DATE OF EXAM: 12/12/2022 COMPARISON: 12/11/2022 HISTORY: Shortness of breath TECHNIQUE: Frontal and lateral views of the chest are obtained. FINDINGS: Scattered senescent parenchymal changes noted. Hyperinflation compatible with COPD. Indwelling tubes and catheters have been removed. No evidence for infiltrate. No evidence for atelectasis. Heart size is stable. Mediastinal structures are stable and grossly unremarkable. No evidence for hilar prominence. Degenerative changes dorsal spine. IMPRESSION: 1. No evidence for acute pulmonary disease.
[2022-12-12 07:01] LABS: Glucose,Whole Blood 142 mg/dL (70-110)
[2022-12-12] MEDS: METOPROLOL TARTRATE 12.5 MG TAB PO SCH ×2 (07:04→21:17)
[2022-12-12] MEDS: BUDESONIDE 1 MG/2 ML NEBU INHALATION SCH ×2 (07:38→20:12)
[2022-12-12] MEDS: FORMOTEROL FUMARATE 20 MCG/2 ML NEBU INHALATION SCH ×2 (07:38→20:12)
[2022-12-12] MEDS: IPRATROPIUM-ALBUTEROL 3 ML NEB INHALATION SCH ×4 (07:39→20:12)
[2022-12-12] MEDS: PANTOPRAZOLE 40 MG/10 ML VIAL IVP SCH (08:29)
[2022-12-12] MEDS: ENALAPRILAT 1.25 MG/ML 1 ML VIAL IVP PRN ×2 (08:29→17:15)
[2022-12-12] MEDS: RIVAROXABAN 2.5 MG TABLET PO SCH ×2 (08:44→21:17)
[2022-12-12] MEDS: GABAPENTIN 300 MG CAP PO SCH ×3 (09:00→21:17)
--- NOTE | 2022-12-12 10:22 | P.PN ---
Subjective Progress Note Date: 12/12/22 Hospital Course: 77-year-old male with a past medical history of coronary artery disease, hypert ension, hyperlipidemia, diastolic heart failure with previously known EF of 60- 65%, COPD home oxygen dependent 3 L, pulmonary hypertension, history of CVA with reports of memory impairment on low dose Xarelto, history of pulmonary emboli, and history of previous alcohol abuse presented with shortness of breath. Upon arrival to our facility patient was found to be in respiratory distress with tachypneic labored respirations at 24 breaths per minute, tachycardic with heart rate 140s, hypertensive a blood pressure 162/105, temp 97.9F and hypoxic requiring placement on BiPAP. EKG was completed showing sinus tachycardia at 145 bpm. Chest x-ray reporting scattered lung field infiltrates concerning for atypical pneumonia. CBC showing leukocytosis with WBC count of 16.5 with left shift with neutrophils of 13.7. BMP revealing hyperkalemia with potassium of 5.7, and an acute kidney injury with BUN 35, creatinine 1.33, and GFR of 51 with baseline creatinine of 0.9. Liver profile revealing transaminitis with acutely elevated LFTs with AST of 61, ALT of 84, and alkaline phosphatase of 131,Trop onin 0.025 and pro-BMP of 102. Influenza A, influenza B, RSV, and Covid PCR were completed all with negative findings. Patient was subsequently intubated in the ER due to hypoxia and increased work of breathing while on BiPAP. Patient was transferred to the medical ICU. Patient was extubated yesterday, currently on BiPAP due to the increased work of breathing. Subjective: Patient seen and examined at bedside. No acute events overnight. Extubated yesterday, currently on BiPAP. Per nursing, patient still having increased work of breathing. Pertinent positives and negatives as discussed above, a complete review of systems was performed and all other systems are negative. Vitals Signs Reviewed. General: In mild respiratory distress, appears stated age Derm: warm, dry Head: atraumatic, normocephalic, symmetric Eyes: Pupils equal and reactive, EOMI Mouth: no lip lesion, mucus membranes moist Cardiovascular: S1S2 reg, no murmur, no edema Lungs: Bilateral scattered wheezing, on BiPAP Abdominal: soft, nondistended, nontender no appreciable organomegaly Ext: no gross muscle atrophy, no edema, no contractures Neuro: CN II-12 are grossly normal Psych: Alert and oriented Data Reviewed Today: Pertinent Labs: WBC 23.8, hemoglobin 11.5, sodium 143, creatinine 0.99, glucose ranged between 142-159 Imaging: Chest x-ray independently interpreted, shows flattened diaphragms consistent with COPD, no significant opacities, similar to yesterday Sputum cultures positive for Pseudomonas Assessment and Plan: Patient is critically ill, currently in the medical ICU, on BiPAP Active: Sepsis secondary to pneumonia, Pseudomonas Acute on chronic respiratory failure with hypoxia and hypercapnia COPD with acute exacerbation Transaminitis -Extubated yesterday, currently on BiPAP -On cefepime 2 g IV every 12 hours -Pulmonology following, patient currently on bronchodilators and Solu-Medrol 60 mg IV every 6 hours -Cardiology note reviewed, signing off -Liver ultrasound unremarkable, CMP tomorrow -If patient continues to remain on BiPAP, we'll consider palliative care for end-stage COPD Resolved: Sinus tachycardia Hypertensive urgency Acute kidney injury Chronic: Pulmonary hypertension Chronic diastolic heart failure with previously known EF of 60-65% History of coronary artery disease History of hypertension History of hyperlipidemia History of CVA with reports of memory impairment on low-dose xarelto History of pulmonary emboli History of previous alcohol abuse with last drink being in 2016 DVT ppx: xarelto Code status: DO NOT RESUSCITATE Anticipated discharge place: Pending clinical course Anticipated discharge time: Pending clinical course Objective - Vital Signs Vital signs: Vital Signs Temp 97.7 F 12/12/22 04:00 Pulse 90 12/12/22 08:12 Resp 15 12/12/22 06:00 BP 186/99 12/12/22 06:00 Pulse Ox 99 12/12/22 06:00 FiO2 40 12/12/22 07:45 Intake & Output 12/11/22 12/12/22 12/12/22 18:59 06:59 18:59 Intake Total 714.206 680 160 Output Total 660 490 190 Balance 54.206 190 -30 Weight 73.936 kg Intake: IV 480 680 160 Cefepime 2 gm In Sodium 200 Chloride 0.9% 100 ml @ 25 mls/hr IVPB Q8H [facility] Rx#: [id number] Sodium Chloride 0.9% 1, 480 480 160 000 ml @ 40 mls/hr IV . Q24H [facility] Rx#:[id number] Intake, IV Titration 54.206 Amount propofoL 1,000 mg In 54.206 Empty Bag 1 bag @ 15 MCG/ KG/MIN 6.328 mls/hr IV . [id number] [facility] Rx#:[id number] Tube Feeding 180 Output: Urine 660 490 190 Other: Voiding Method Indwelling Catheter Indwelling Catheter # Bowel Movements 1 - Labs CBC & Chem 7: 12/12/22 04:45 12/12/22 04:45 Labs: Abnormal Lab Results - Last 24 Hours (Table) 12/11/22 12/11/22 12/12/22 Range/Units 11:30 18:13 00:27 WBC (3.8-10.6) k/uL RBC (4.30-5.90) m/uL Hgb (13.0-17.5) gm/dL Hct (39.0-53.0) % MCV (80.0-100.0) fL Neutrophils # (1.3-7.7) k/uL Lymphocytes # (1.0-4.8) k/uL Chloride (98-107) mmol/L BUN (9-20) mg/dL Glucose (74-99) mg/dL POC Glucose (mg/dL) 166 H 143 H 153 H (70-110) mg/dL Calcium (8.4-10.2) mg/dL 12/12/22 12/12/22 12/12/22 Range/Units 04:45 04:45 07:00 WBC 23.8 H (3.8-10.6) k/uL RBC 3.67 L (4.30-5.90) m/uL Hgb 11.5 L (13.0-17.5) gm/dL Hct 37.0 L (39.0-53.0) % MCV 100.8 H (80.0-100.0) fL Neutrophils # 22.7 H (1.3-7.7) k/uL Lymphocytes # 0.4 L (1.0-4.8) k/uL Chloride 111 H (98-107) mmol/L BUN 33 H (9-20) mg/dL Glucose 159 H (74-99) mg/dL POC Glucose (mg/dL) 142 H (70-110) mg/dL Calcium 8.2 L (8.4-10.2) mg/dL Microbiology - Last 24 Hours (Table) 12/09/22 09:05 Blood Culture - Preliminary Blood 12/09/22 09:20 Blood Culture - Preliminary Blood 12/09/22 11:47 Gram Stain - Final Sputum Sputum Culture - Final Pseudomonas aeruginosa
--- NOTE | 2022-12-12 10:28 | P.PN ---
Subjective Progress Note Date: 12/12/22 Visit 76-year-old male patient presented to [facility] department because of worsening shortness of breath. The patient is known to have severe COPD with an FEV1 of 49% of predicted at baseline. He has underlying dementia, hypertension and hyperlipidemia and previous history of pulmonary embolism and he has been maintained on long-term xarelto . I was unable to interview the patient. As by the time I arrived, he was having agonal breathing while being on a BiPAP. I came to find other the patient was already being supported with BiPAP since he came in his breathing was progressively getting worse. He was unable to provide any history. He was unresponsive, and at that point, I intubated this patient in the emergency department. Currently is intubated on a mechanical ventilator. Is on assist-control at the rate of 26, tidal volume of 400, FiO2 of 100% with a PEEP of 5. Most recent blood pressure is 159/90. He is on propofol running at 40 mcg/kg/m. Intubation process was done without any complications. Chest x-ray is consistent with you. Post intubation chest x-rays pending. Meanwhile, his blood work from today showed a basic of 16.9 with a hemoglobin of 15 and a platelet count of 336. Normal coagulation profile. BUN is at 35 with a creatinine of 1.38. Sodium is 136. Potassium level is at 5.7. LFTs are slightly elevated with an AST of 61, ALT of 84, alkaline phosphatase of 131, proBNP is nonelevated at 102 and the patient has a negative Covid 19 testing, negative influenza and negative RSV. Blood gases pending. Post intubation chest x-rays pending. He has not required any pressors. He is afebrile. He was started on Rocephin and Zithromax and is also on IV Solu-Medrol. No reported chest pain. EKG showed no ischemic changes. It is consistent with sinus tachycardia. I am seeing this patient in follow-up 12/10/2022 in the intensive care unit. He remains intubated on mechanical ventilator with settings of assist control, respiratory rate 26, tidal volume 450, FiO2 40%, PEEP of 5. ABGs done on the settings show PO2 130, pCO2 of 40, pH of 7.36. Patient's FiO2 is dropped 35%. Chest x-ray from this morning shows endotracheal tube approximately 2 cm above the armando, improved bibasilar infiltrates, small right pleural effusion, and chronic COPD changes. Sputum culture is pending. Patient is covered on a combination of Zithromax, cefepime, and vancomycin. Patient has been afebrile overnight. Procalcitonin level was only mildly elevated at 0.17. Patient's CBC shows a WBC count down to 13.7, hemoglobin 12.6, hematocrit 39.3, platelets 249,000. BMP from this morning shows a sodium 133, potassium 5.2, chloride 106, serum CO2 24, BUN of 27, creatinine 1.01, glucose 153. Patient is currently sedated on propofol 20 mics per kilogram per minute. He does wake up and follow commands to verbal stimulation. So has normal saline infusing at 130 ML's per hour. He has not required any vasopressors. Urine output in the order of 40-50 mL an hour. He has not been started on tube feeds yet. Peak airway pressures are 35 and plateau pressure 17. He remains on bronchodilators, IV Solu-Medrol. Patient is mildly elevated, and a liver ultrasound is pending. Vital signs are stable at this time. On today's evaluation of 12/11/2022, I'm seeing the patient for a follow-up. The patient remains intubated on a mechanical ventilator. This morning he is taken off the sedation and the patient is awake and alert and following simple commands. He remains on mechanical ventilator for now on assist control mode at the rate of 26, tidal volume of 450, FiO2 of 30% with a PEEP of 5. Blood gases from today shows a pH of 7.33 with a pCO2 of 43 and pO2 of 82 and this was an FiO2 of 30%. Chest x-ray from today shows emphysema without any acute abnormalities. The patient remains on a combination of bronchodilators and ster oids. The sputum sample was positive for pseudomonas aeruginosa and the patient is currently on IV cefepime and Zithromax has been discontinued. He remains on bronchodilators. He remains on steroids. He is also on long-term and coagulation with Xarelto 2.5 mg by mouth twice a day. He is also on normal saline at rate of 40 mL an hour. His cardiac rhythm is sinus. Urine output is adequate. The overall fluid balance has been +1.6 L over the past 24 hours. On 12/12/2022, the patient was extubated yesterday and the patient is currently on BiPAP at a pressure of 12/5 cm of water. He is currently on FiO2 of 40% in his oxygenation is adequate with a saturation of 90%. Is able to generate approximately 800 mL on his BiPAP machine in terms of his tidal volume. His minute ventilation is around 13 L. He remains bronchospastic and wheezy. His breathing is nonlabored on the BiPAP. Once switched to nasal cannula, his oxygen saturations remains unchanged, however his work of breathing gets worse. As such, we'll try to keep him on a BiPAP for most of the day. He is hemodynamically stable. Cardiac rhythm is sinus. He is awake and alert and is also communicating. Noted. Pseudomonas in his sputum and the patient is currently on IV cefepime. He remains on bronchodilators. He remains on steroids. IV fluids are running in the form of normal saline at rate of 30 mL an hour. White cell count is at 23.8 with a hemoglobin 11.5, BUN is at 33 with a creatinine of 0.9 and sodium level is 143. Blood pressure is slightly elevated and the patient was given IV Vasotec. The chest x-ray from today shows hyperinflation, no acute pulmonary infiltrates. Objective - Vital Signs Vital signs: Vital Signs Temp 97.7 F 12/12/22 04:00 Pulse 90 12/12/22 08:12 Resp 15 12/12/22 06:00 BP 186/99 12/12/22 06:00 Pulse Ox 99 12/12/22 06:00 FiO2 40 12/12/22 07:45 Intake & Output 12/11/22 12/12/22 12/12/22 18:59 06:59 18:59 Intake Total 714.206 680 160 Output Total 660 490 190 Balance 54.206 190 -30 Weight 73.936 kg Intake: IV 480 680 160 Cefepime 2 gm In Sodium 200 Chloride 0.9% 100 ml @ 25 mls/hr IVPB Q8H [facility] Rx#: [id number] Sodium Chloride 0.9% 1, 480 480 160 000 ml @ 40 mls/hr IV . Q24H [facility] Rx#:[id number] Intake, IV Titration 54.206 Amount propofoL 1,000 mg In 54.206 Empty Bag 1 bag @ 15 MCG/ KG/MIN 6.328 mls/hr IV . [id number] [facility] [place] Rx#:[id number] Tube Feeding 180 Output: Urine 660 490 190 Other: Voiding Method Indwelling Catheter Indwelling Catheter # Bowel Movements 1 - Exam General responds to verbal commands, synchronous with mechanical ventilator. The patient was taken off sedation and the patient is following simple commands. Head: Atraumatic. There was no scleral icterus or corneal arcus. Mucous membranes were moist. Neck: supple without jugular venous distention Lungs: have equal air movement with minimal end expiratory wheeze. No crackles, rhonchi, or focal dullness. Patient is intubated on mechanical ventilator Heart: S1 and S2, regular rhythm, no extra heart sounds Abdominal: abdomen is nondistended, normal bowel sounds, no guarding or rigidity Extremities: revealed easily palpable radial, femoral and pedal pulses. There was no cyanosis, clubbing or edema Skin: revealed no evidence of significant rashes, suspicious appearing nevi or other concerning lesions. Neurologically: the patient is currently getting a sedation holiday He does awake and respond appropriately to verbal stimulation. No focal deficits - Labs CBC & Chem 7: 12/12/22 04:45 12/12/22 04:45 Labs: Abnormal Lab Results - Last 24 Hours (Table) 12/11/22 12/11/22 12/12/22 Range/Units 11:30 18:13 00:27 WBC (3.8-10.6) k/uL RBC (4.30-5.90) m/uL Hgb (13.0-17.5) gm/dL Hct (39.0-53.0) % MCV (80.0-100.0) fL Neutrophils # (1.3-7.7) k/uL Lymphocytes # (1.0-4.8) k/uL Chloride (98-107) mmol/L BUN (9-20) mg/dL Glucose (74-99) mg/dL POC Glucose (mg/dL) 166 H 143 H 153 H (70-110) mg/dL Calcium (8.4-10.2) mg/dL 12/12/22 12/12/22 12/12/22 Range/Units 04:45 04:45 07:00 WBC 23.8 H (3.8-10.6) k/uL RBC 3.67 L (4.30-5.90) m/uL Hgb 11.5 L (13.0-17.5) gm/dL Hct 37.0 L (39.0-53.0) % MCV 100.8 H (80.0-100.0) fL Neutrophils # 22.7 H (1.3-7.7) k/uL Lymphocytes # 0.4 L (1.0-4.8) k/uL Chloride 111 H (98-107) mmol/L BUN 33 H (9-20) mg/dL Glucose 159 H (74-99) mg/dL POC Glucose (mg/dL) 142 H (70-110) mg/dL Calcium 8.2 L (8.4-10.2) mg/dL Microbiology - Last 24 Hours (Table) 12/09/22 09:05 Blood Culture - Preliminary Blood 12/09/22 09:20 Blood Culture - Preliminary Blood 12/09/22 11:47 Gram Stain - Final Sputum Sputum Culture - Final Pseudomonas aeruginosa Assessment and Plan Plan: Altered mentation secondary to respiratory failure, recovered and the patient's mental status normalized Acute COPD exacerbation with questionable pneumonia. The chest x-ray is more consistent with COPD. There is some methods scattered lower lobe pulmonary infiltrates which have improved on today's x-ray. Procalcitonin level was only minimally elevated at 0.17. The patient was weaned off the mechanical ventilator the patient was extubated to BiPAP, and a chest x-ray findings are stable Pseudomonas aeruginosa in the sputum, colonization versus a true infection. Currently on IV cefepime. Acute hypoxic/hypercapnic respiratory failure secondary to exacerbation, currently on BiPAP Chronic hypoxic respiratory failure and the patient will maintain oxygen at 3 L on outpatient basis Previous history of hospitalization for pneumococcal pneumonia approximately y ear ago Coronary artery disease Dementia Hiatal hernia Overactive bladder History of smoking quit in 2016 History of alcoholism quit in 2016 Osteoarthritis Previous history of pulmonary embolism maintain on long-term anticoagulants Hypertension Hyperlipidemia Acid reflux Previous history of TIA Cholelithiasis without evidence of any acute cholecystitis Plan Continue BiPAP at the same setting of 07/27 with an FiO2 of 40% Continue bronchodilators and steroids Continue IV cefepime Keep BiPAP for the most of the day today with brief interruptions Continue DuoNeb nebulized treatments [id number] Solu-Medrol 60mg every q 6hr budesonide and formoterol inhalation IV Protonix Continue anticoagulants We'll continue to follow This evaluation was done in more than 30 minutes. Critical care evaluation. Time with Patient: Greater than 30
[2022-12-12 11:36] LABS: Glucose,Whole Blood 157 mg/dL (70-110)
[2022-12-12] MEDS: SODIUM CHLORIDE 0.9% 1,000 ML IV SCH ×2 (13:33→22:16)
[2022-12-12] MEDS: ALPRAZolam 0.5 MG TAB PO PRN (18:00)
[2022-12-12 18:14] LABS: Glucose,Whole Blood 142 mg/dL (70-110)
[2022-12-13 00:26] LABS: Glucose,Whole Blood 156 mg/dL (70-110)
[2022-12-13] MEDS: CEFEPIME 2 GM in SODIUM CHLORIDE 0.9% 100 ML IVPB SCH ×3 (03:03→20:49)
[2022-12-13] MEDS: SODIUM CHLORIDE 0.9% 1,000 ML IV SCH (03:04)
[2022-12-13] MEDS: ENALAPRILAT 1.25 MG/ML 1 ML VIAL IVP PRN ×3 (03:20→14:17)
[2022-12-13 04:13] LABS: Basophils % (A) 0 %; Eosinophils % (A) 0 %; HCT 38.8 % (39.0-53.0); Lymphocytes # (A) 0.4 k/uL (1.0-4.8); Lymphocytes % (A) 2 %; MCHC 30.8 g/dL (31.0-37.0); MCV 100.4 fL (80.0-100.0); Mean Platelet Volume 7.4; Monocytes # (A) 0.4 k/uL (0-1.0); Monocytes % (A) 2 %; Neutrophils # (A) 15.4 k/uL (1.3-7.7); Neutrophils % (A) 95 %; Platelet Count 283 k/uL (150-450); RBC 3.87 m/uL (4.30-5.90); RDW 13.1 % (11.5-15.5); WBC 16.3 k/uL (3.8-10.6)
[2022-12-13 04:21] LABS: African American GFR (CKD) >90 (>60 ml/min/1.73 sqM); Anion Gap 4 mmol/L; Blood Urea Nitrogen 32 mg/dL (9-20); Calcium 8.2 mg/dL (8.4-10.2); Carbon Dioxide 27 mmol/L (22-30); Chloride 110 mmol/L (98-107); Glucose 190 mg/dL (74-99); Non-African American GFR(CKD) 80 (>60 ml/min/1.73 sqM); Potassium 4.4 mmol/L (3.5-5.1); Sodium 141 mmol/L (137-145)
[2022-12-13] MEDS: methylPREDNISolone SOD SUCCI 125 MG/2 ML VIAL IV SCH ×3 (05:06→17:11)
[2022-12-13] MEDS: cloNIDine HCL 0.1 MG TAB PO PRN (05:21)
[2022-12-13 07:03] LABS: Glucose,Whole Blood 147 mg/dL (70-110)
[2022-12-13] MEDS: PANTOPRAZOLE 40 MG/10 ML VIAL IVP SCH (08:05)
[2022-12-13] MEDS: RIVAROXABAN 2.5 MG TABLET PO SCH ×2 (08:05→20:51)
[2022-12-13] MEDS: METOPROLOL TARTRATE 12.5 MG TAB PO SCH ×2 (08:06→20:51)
[2022-12-13] MEDS: GABAPENTIN 300 MG CAP PO SCH ×3 (08:06→21:00)
--- NOTE | 2022-12-13 09:06 | P.PN ---
Subjective Progress Note Date: 12/13/22 Visit 76-year-old male patient presented to [facility] department because of worsening shortness of breath. The patient is known to have severe COPD with an FEV1 of 49% of predicted at baseline. He has underlying dementia, hypertension and hyperlipidemia and previous history of pulmonary embolism and he has been maintained on long-term xarelto . I was unable to interview the patient. As by the time I arrived, he was having agonal breathing while being on a BiPAP. I came to find other the patient was already being supported with BiPAP since he came in his breathing was progressively getting worse. He was unable to provide any history. He was unresponsive, and at that point, I intubated this patient in the emergency department. Currently is intubated on a mechanical ventilator. Is on assist-control at the rate of 26, tidal volume of 400, FiO2 of 100% with a PEEP of 5. Most recent blood pressure is 159/90. He is on propofol running at 40 mcg/kg/m. Intubation process was done without any complications. Chest x-ray is consistent with you. Post intubation chest x-rays pending. Meanwhile, his blood work from today showed a basic of 16.9 with a hemoglobin of 15 and a platelet count of 336. Normal coagulation profile. BUN is at 35 with a creatinine of 1.38. Sodium is 136. Potassium level is at 5.7. LFTs are slightly elevated with an AST of 61, ALT of 84, alkaline phosphatase of 131, proBNP is nonelevated at 102 and the patient has a negative Covid 19 testing, negative influenza and negative RSV. Blood gases pending. Post intubation chest x-rays pending. He has not required any pressors. He is afebrile. He was started on Rocephin and Zithromax and is also on IV Solu-Medrol. No reported chest pain. EKG showed no ischemic changes. It is consistent with sinus tachycardia. I am seeing this patient in follow-up 12/10/2022 in the intensive care unit. He remains intubated on mechanical ventilator with settings of assist control, respiratory rate 26, tidal volume 450, FiO2 40%, PEEP of 5. ABGs done on the settings show PO2 130, pCO2 of 40, pH of 7.36. Patient's FiO2 is dropped 35%. Chest x-ray from this morning shows endotracheal tube approximately 2 cm above the armando, improved bibasilar infiltrates, small right pleural effusion, and chronic COPD changes. Sputum culture is pending. Patient is covered on a combination of Zithromax, cefepime, and vancomycin. Patient has been afebrile overnight. Procalcitonin level was only mildly elevated at 0.17. Patient's CBC shows a WBC count down to 13.7, hemoglobin 12.6, hematocrit 39.3, platelets 249,000. BMP from this morning shows a sodium 133, potassium 5.2, chloride 106, serum CO2 24, BUN of 27, creatinine 1.01, glucose 153. Patient is currently sedated on propofol 20 mics per kilogram per minute. He does wake up and follow commands to verbal stimulation. So has normal saline infusing at 130 ML's per hour. He has not required any vasopressors. Urine output in the order of 40-50 mL an hour. He has not been started on tube feeds yet. Peak airway pressures are 35 and plateau pressure 17. He remains on bronchodilators, IV Solu-Medrol. Patient is mildly elevated, and a liver ultrasound is pending. Vital signs are stable at this time. On today's evaluation of 12/11/2022, I'm seeing the patient for a follow-up. The patient remains intubated on a mechanical ventilator. This morning he is taken off the sedation and the patient is awake and alert and following simple commands. He remains on mechanical ventilator for now on assist control mode at the rate of 26, tidal volume of 450, FiO2 of 30% with a PEEP of 5. Blood gases from today shows a pH of 7.33 with a pCO2 of 43 and pO2 of 82 and this was an FiO2 of 30%. Chest x-ray from today shows emphysema without any acute abnormalities. The patient remains on a combination of bronchodilators and ster oids. The sputum sample was positive for pseudomonas aeruginosa and the patient is currently on IV cefepime and Zithromax has been discontinued. He remains on bronchodilators. He remains on steroids. He is also on long-term and coagulation with Xarelto 2.5 mg by mouth twice a day. He is also on normal saline at rate of 40 mL an hour. His cardiac rhythm is sinus. Urine output is adequate. The overall fluid balance has been +1.6 L over the past 24 hours. On 12/12/2022, the patient was extubated yesterday and the patient is currently on BiPAP at a pressure of 12/5 cm of water. He is currently on FiO2 of 40% in his oxygenation is adequate with a saturation of 90%. Is able to generate approximately 800 mL on his BiPAP machine in terms of his tidal volume. His minute ventilation is around 13 L. He remains bronchospastic and wheezy. His breathing is nonlabored on the BiPAP. Once switched to nasal cannula, his oxygen saturations remains unchanged, however his work of breathing gets worse. As such, we'll try to keep him on a BiPAP for most of the day. He is hemodynamically stable. Cardiac rhythm is sinus. He is awake and alert and is also communicating. Noted. Pseudomonas in his sputum and the patient is currently on IV cefepime. He remains on bronchodilators. He remains on steroids. IV fluids are running in the form of normal saline at rate of 30 mL an hour. White cell count is at 23.8 with a hemoglobin 11.5, BUN is at 33 with a creatinine of 0.9 and sodium level is 143. Blood pressure is slightly elevated and the patient was given IV Vasotec. The chest x-ray from today shows hyperinflation, no acute pulmonary infiltrates. 12/12/2022, the patient was transitioned again to BiPAP. After being on high flow oxygen overnight at 45 L with an FiO2 of 40%, the patient was placed again on BiPAP this morning at a pressures of 12/5 with an FiO2 of 35%. Oxygenation remains stable at 97%. His generating adequate tidal volume. His minute ventilation is also adequate at 6 L/m nasal cannula. No chest x-rays available from today. Most recent x-rays were essentially clear. History recovering from acute COPD exacerbation. He is post ventilator dependent respiratory failure and he was extubated approximately 48 hours ago. He is tolerating the BiPAP w hile. Note that he is also Pseudomonas in his sputum and the patient is being treated accordingly with IV cefepime. Remains on bronchodilators and steroids. The white cell count is down to 16.3 with a hemoglobin of 12 and a platelet count of 283. BUN is 32 with a creatinine of 0.9 and his sodium level is at 141. Also, the patient is on DuoNeb nebulized treatments [id number], IV Solu-Medrol, IV cefepime, and he is also on long-term anticoagulation for now. His cough is still congested. We'll proceed with adequate pulmonary toileting. His blood pressure was also elevated. He was started on clonidine and this will be continued at a dose of 0.2 mg every 8 hours on a regular basis. He is also receiving Vasotec 2.5 mg IV every 6 hours on a when necessary basis. He was not taking any form of antihypertensive medications on outpatient basis. He was maintained on Lopressor which is still on board at 12.5 mg by mouth twice a day. Objective - Vital Signs Vital signs: Vital Signs Temp 97.5 F L 12/13/22 08:00 Pulse 105 H 12/13/22 08:00 Resp 16 12/13/22 08:00 BP 174/101 12/13/22 08:00 Pulse Ox 92 L 12/13/22 08:00 FiO2 40 12/13/22 08:00 Intake & Output 12/12/22 12/13/22 12/13/22 18:59 06:59 18:59 Intake Total 730 680 280 Output Total 485 700 200 Balance 245 -20 80 Weight 74.4 kg Intake: IV 480 680 80 Cefepime 2 gm In Sodium 200 Chloride 0.9% 100 ml @ 25 mls/hr IVPB Q8H ABDOULAYE Rx#: [id number] Sodium Chloride 0.9% 1, 480 480 80 000 ml @ 40 mls/hr IV . Q24H ABDOULAYE Rx#:[id number] Oral 250 200 Output: Urine 485 700 200 Other: Voiding Method Indwelling Catheter Indwelling Catheter Indwelling Catheter - Exam General appearance, comfortable and very much success in the BiPAP machine at a pressures of 12/5 cm of water. Head: Atraumatic. There was no scleral icterus or corneal arcus. Mucous membranes were moist. Neck: supple without jugular venous distention Lungs: have equal air movement with minimal end expiratory wheeze. No crackles, rhonchi, or focal dullness. Diminished breath sounds bilaterally along with prolongation of vaccination phase of breathing Heart: S1 and S2, regular rhythm, no extra heart sounds Abdominal: abdomen is nondistended, normal bowel sounds, no guarding or rigidity Extremities: revealed easily palpable radial, femoral and pedal pulses. There was no cyanosis, clubbing or edema Skin: revealed no evidence of significant rashes, suspicious appearing nevi or other concerning lesions. Neurologically:Neurologically, the patient is awake and alert and the patient does not have any focal neurological deficit. Cranial nerves are essentially intact. - Labs CBC & Chem 7: 12/13/22 03:53 12/13/22 03:53 Labs: Abnormal Lab Results - Last 24 Hours (Table) 12/12/22 12/12/22 12/13/22 Range/Units 11:35 18:12 00:25 WBC (3.8-10.6) k/uL RBC (4.30-5.90) m/uL Hgb (13.0-17.5) gm/dL Hct (39.0-53.0) % MCV (80.0-100.0) fL MCHC (31.0-37.0) g/dL Neutrophils # (1.3-7.7) k/uL Lymphocytes # (1.0-4.8) k/uL Chloride (98-107) mmol/L BUN (9-20) mg/dL Glucose (74-99) mg/dL POC Glucose (mg/dL) 157 H 142 H 156 H (70-110) mg/dL Calcium (8.4-10.2) mg/dL 12/13/22 12/13/22 12/13/22 Range/Units 03:53 03:53 07:02 WBC 16.3 H (3.8-10.6) k/uL RBC 3.87 L (4.30-5.90) m/uL Hgb 12.0 L (13.0-17.5) gm/dL Hct 38.8 L (39.0-53.0) % MCV 100.4 H (80.0-100.0) fL MCHC 30.8 L (31.0-37.0) g/dL Neutrophils # 15.4 H (1.3-7.7) k/uL Lymphocytes # 0.4 L (1.0-4.8) k/uL Chloride 110 H (98-107) mmol/L BUN 32 H (9-20) mg/dL Glucose 190 H (74-99) mg/dL POC Glucose (mg/dL) 147 H (70-110) mg/dL Calcium 8.2 L (8.4-10.2) mg/dL Microbiology - Last 24 Hours (Table) 12/09/22 09:05 Blood Culture - Preliminary Blood 12/09/22 09:20 Blood Culture - Preliminary Blood Assessment and Plan Plan: Altered mentation secondary to respiratory failure, recovered and the patient's mental status normalized , this was related to metabolic encephalopathy Acute COPD exacerbation with questionable pneumonia. There is limited pneumonia related to pseudomonas aeruginosa and the patient is also on IV cefepime. The patient was extubated on 12/11/2022. Currently is requiring BiPA P for respiratory support which is also being alternated with high flow oxygen. Tolerating the BiPAP well without any major difficulties. Pseudomonas aeruginosa in the sputum, colonization versus a true infection. Currently on IV cefepime. Acute hypoxic/hypercapnic respiratory failure secondary to exacerbation, currently on BiPAP Chronic hypoxic respiratory failure and the patient will maintain oxygen at 3 L on outpatient basis Previous history of hospitalization for pneumococcal pneumonia approximately year ago Coronary artery disease Dementia Hiatal hernia Overactive bladder History of smoking quit in 2015 History of alcoholism quit in 2015 Osteoarthritis Previous history of pulmonary embolism maintain on long-term anticoagulants Hypertension Hyperlipidemia Acid reflux Previous history of TIA Cholelithiasis without evidence of any acute cholecystitis Plan We'll continue same treatment Continue BiPAP at the same setting of 12/5 with an FiO2 of 40%, this can be alte rnated with high flow oxygen No issues with oxygenation Continue bronchodilators and steroids Continue IV cefepime Keep BiPAP on and off during the day Continue DuoNeb nebulized treatments [id number] Solu-Medrol 60mg every q 6hr budesonide and formoterol inhalation IV Protonix Continue Catapres her blood pressure control Continue metoprolol IV Vasotec as needed 2.5 mg every 6 hours Continue anticoagulants We'll continue to follow This evaluation was done in more than 30 minutes. Critical care evaluation. Time with Patient: Greater than 30
[2022-12-13] MEDS: IPRATROPIUM-ALBUTEROL 3 ML NEB INHALATION SCH ×4 (09:16→22:08)
[2022-12-13] MEDS: FORMOTEROL FUMARATE 20 MCG/2 ML NEBU INHALATION SCH ×2 (09:16→22:08)
[2022-12-13] MEDS: BUDESONIDE 1 MG/2 ML NEBU INHALATION SCH ×2 (09:17→22:09)
[2022-12-13] MEDS: ACETAMINOPHEN TAB 325 MG TAB PO PRN ×2 (09:41→20:52)
--- NOTE | 2022-12-13 10:05 | P.PN ---
Subjective Progress Note Date: 12/13/22 Hospital Course: 77-year-old male with a past medical history of coronary artery disease, hypert ension, hyperlipidemia, diastolic heart failure with previously known EF of 60- 65%, COPD home oxygen dependent 3 L, pulmonary hypertension, history of CVA with reports of memory impairment on low dose Xarelto, history of pulmonary emboli, and history of previous alcohol abuse presented with shortness of breath. Upon arrival to our facility patient was found to be in respiratory distress with tachypneic labored respirations at 24 breaths per minute, tachycardic with heart rate 140s, hypertensive a blood pressure 162/105, temp 97.9F and hypoxic requiring placement on BiPAP. EKG was completed showing sinus tachycardia at 145 bpm. Chest x-ray reporting scattered lung field infiltrates concerning for atypical pneumonia. CBC showing leukocytosis with WBC count of 16.5 with left shift with neutrophils of 13.7. BMP revealing hyperkalemia with potassium of 5.7, and an acute kidney injury with BUN 35, creatinine 1.33, and GFR of 51 with baseline creatinine of 0.9. Liver profile revealing transaminitis with acutely elevated LFTs with AST of 61, ALT of 84, and alkaline phosphatase of 131,Trop onin 0.025 and pro-BMP of 102. Influenza A, influenza B, RSV, and Covid PCR were completed all with negative findings. Patient was subsequently intubated in the ER due to hypoxia and increased work of breathing while on BiPAP. Patient was transferred to the medical ICU. Patient is status post extubation, currently on BiPAP and occasional high flow due to the increased work of breathing and hypoxia. Subjective: Patient seen and examined at bedside. No acute events overnight. Continues to have increased work of breathing, requiring BiPAP. Pertinent positives and negatives as discussed above, a complete review of systems was performed and all other systems are negative. Vitals Signs Reviewed. General: In mild respiratory distress, appears stated age Derm: warm, dry Head: atraumatic, normocephalic, symmetric Eyes: Pupils equal and reactive, EOMI Mouth: no lip lesion, mucus membranes moist Cardiovascular: S1S2 reg, no murmur, no edema Lungs: Bilateral scattered wheezing, on BiPAP Abdominal: soft, nondistended, nontender no appreciable organomegaly Ext: no gross muscle atrophy, no edema, no contractures Neuro: CN II-12 are grossly normal Psych: Alert and oriented Data Reviewed Today: Pertinent Labs: WBC 16.3, hemoglobin 12, sodium 141, creatinine 0.9 to, blood sugars range between 142-190 Assessment and Plan: Patient is critically ill, currently in the medical ICU, on BiPAP Active: Sepsis secondary to pneumonia, Pseudomonas Acute on chronic respiratory failure with hypoxia and hypercapnia COPD with acute exacerbation Transaminitis Hypertensive urgency -currently on BiPAP -On cefepime 2 g IV every 12 hours -Pulmonology note reviewed: Continue bronchodilators and Solu-Medrol 60 mg IV every 6 hours -Cardiology signing off -Liver ultrasound unremarkable -If patient continues to remain on BiPAP, we'll consider palliative care for end-stage COPD -On clonidine 0.2 mg oral every 8 hours, and Vasotec 2.5 mg IV push as needed every 6 hours Resolved: Sinus tachycardia Acute kidney injury Chronic: Pulmonary hypertension Chronic diastolic heart failure with previously known EF of 60-65% History of coronary artery disease History of hypertension History of hyperlipidemia History of CVA with reports of memory impairment on low-dose xarelto History of pulmonary emboli History of previous alcohol abuse with last drink being in 2015 DVT ppx: xarelto Code status: DO NOT RESUSCITATE Anticipated discharge place: Pending clinical course Anticipated discharge time: Pending clinical course Objective - Vital Signs Vital signs: Vital Signs Temp 97.5 F L 12/13/22 08:00 Pulse 92 12/13/22 09:41 Resp 18 12/13/22 09:00 BP 180/81 12/13/22 09:00 Pulse Ox 97 12/13/22 09:00 FiO2 35 12/13/22 09:17 Intake & Output 12/12/22 12/13/22 12/13/22 18:59 06:59 18:59 Intake Total 730 680 320 Output Total 485 700 235 Balance 245 -20 85 Weight 74.4 kg Intake: IV 480 680 120 Cefepime 2 gm In Sodium 200 Chloride 0.9% 100 ml @ 25 mls/hr IVPB Q8H [facility] Rx#: [id number] Sodium Chloride 0.9% 1, 480 480 120 000 ml @ 40 mls/hr IV . Q24H ABDOULAYE Rx#:[id number] Oral 250 200 Output: Urine 485 700 235 Other: Voiding Method Indwelling Catheter Indwelling Catheter Indwelling Catheter - Labs CBC & Chem 7: 12/13/22 03:53 12/13/22 03:53 Labs: Abnormal Lab Results - Last 24 Hours (Table) 12/12/22 12/12/22 12/13/22 Range/Units 11:35 18:12 00:25 WBC (3.8-10.6) k/uL RBC (4.30-5.90) m/uL Hgb (13.0-17.5) gm/dL Hct (39.0-53.0) % MCV (80.0-100.0) fL MCHC (31.0-37.0) g/dL Neutrophils # (1.3-7.7) k/uL Lymphocytes # (1.0-4.8) k/uL Chloride (98-107) mmol/L BUN (9-20) mg/dL Glucose (74-99) mg/dL POC Glucose (mg/dL) 157 H 142 H 156 H (70-110) mg/dL Calcium (8.4-10.2) mg/dL 12/13/22 12/13/22 12/13/22 Range/Units 03:53 03:53 07:02 WBC 16.3 H (3.8-10.6) k/uL RBC 3.87 L (4.30-5.90) m/uL Hgb 12.0 L (13.0-17.5) gm/dL Hct 38.8 L (39.0-53.0) % MCV 100.4 H (80.0-100.0) fL MCHC 30.8 L (31.0-37.0) g/dL Neutrophils # 15.4 H (1.3-7.7) k/uL Lymphocytes # 0.4 L (1.0-4.8) k/uL Chloride 110 H (98-107) mmol/L BUN 32 H (9-20) mg/dL Glucose 190 H (74-99) mg/dL POC Glucose (mg/dL) 147 H (70-110) mg/dL Calcium 8.2 L (8.4-10.2) mg/dL Microbiology - Last 24 Hours (Table) 12/09/22 09:05 Blood Culture - Preliminary Blood 12/09/22 09:20 Blood Culture - Preliminary Blood
[2022-12-13 11:46] LABS: Glucose,Whole Blood 161 mg/dL (70-110)
[2022-12-13] MEDS: cloNIDine HCL 0.1 MG TAB PO SCH ×2 (12:00→20:51)
[2022-12-13] MEDS: ALPRAZolam 0.5 MG TAB PO PRN (16:59)
[2022-12-13] MEDS ORDERED: ENALAPRILAT 1.25 MG/ML 1 ML VIAL IVP STA (17:11)
[2022-12-13] MEDS: amLODIPine 10 MG TAB PO SCH (18:05)
[2022-12-13 18:11] LABS: Glucose,Whole Blood 131 mg/dL (70-110)
[2022-12-14 00:05] LABS: Glucose,Whole Blood 154 mg/dL (70-110)
[2022-12-14] MEDS: methylPREDNISolone SOD SUCCI 125 MG/2 ML VIAL IV SCH ×4 (00:45→17:03)
[2022-12-14] MEDS: ENALAPRILAT 1.25 MG/ML 1 ML VIAL IVP PRN ×3 (00:45→18:12)
[2022-12-14] MEDS: SODIUM CHLORIDE 0.9% 1,000 ML IV SCH (02:29)
[2022-12-14] MEDS: ACETAMINOPHEN TAB 325 MG TAB PO PRN ×2 (03:04→19:49)
[2022-12-14] MEDS: CEFEPIME 2 GM in SODIUM CHLORIDE 0.9% 100 ML IVPB SCH ×3 (03:08→19:49)
[2022-12-14] MEDS: cloNIDine HCL 0.1 MG TAB PO SCH ×3 (04:07→21:28)
[2022-12-14 04:56] LABS: Basophils % (A) 0 %; Eosinophils % (A) 0 %; HCT 40.4 % (39.0-53.0); HGB 12.6 gm/dL (13.0-17.5); Lymphocytes # (A) 0.4 k/uL (1.0-4.8); Lymphocytes % (A) 2 %; MCH 30.9 pg (25.0-35.0); MCHC 31.2 g/dL (31.0-37.0); Mean Platelet Volume 7.2; Monocytes # (A) 0.5 k/uL (0-1.0); Monocytes % (A) 3 %; Neutrophils % (A) 94 %; Platelet Count 287 k/uL (150-450); RBC 4.08 m/uL (4.30-5.90); RDW 13.2 % (11.5-15.5)
[2022-12-14 05:01] LABS: African American GFR (CKD) >90 (>60 ml/min/1.73 sqM); Anion Gap 3 mmol/L; Blood Urea Nitrogen 26 mg/dL (9-20); Calcium 8.5 mg/dL (8.4-10.2); Carbon Dioxide 32 mmol/L (22-30); Chloride 105 mmol/L (98-107); Glucose 162 mg/dL (74-99); Non-African American GFR(CKD) 87 (>60 ml/min/1.73 sqM); Potassium 4.2 mmol/L (3.5-5.1); Sodium 140 mmol/L (137-145)
[2022-12-14 06:37] LABS: Glucose,Whole Blood 192 mg/dL (70-110)
--- NOTE | 2022-12-14 08:04 | XR ---
EXAMINATION TYPE: XR chest 1V portable DATE OF EXAM: 12/14/2022 6:07 AM COMPARISON: Chest radiographs from 12/12/2022 TECHNIQUE: XR chest 1V portable Frontal view of the chest. CLINICAL INDICATION:Male, 77 years old with history of dyspnea; FINDINGS: Lungs/Pleura: There is no evidence of pleural effusion, focal consolidation, or pneumothorax. Pulmonary vascularity: Unremarkable. Heart/mediastinum: Cardiomediastinal silhouette is unremarkable. Atherosclerotic calcifications are seen in the aorta. Musculoskeletal: No acute osseous pathology. IMPRESSION: 1. No acute cardiopulmonary disease process. 2. COPD changes.
[2022-12-14] MEDS: amLODIPine 10 MG TAB PO SCH (08:18)
[2022-12-14] MEDS: GABAPENTIN 300 MG CAP PO SCH ×3 (08:18→21:28)
[2022-12-14] MEDS: PANTOPRAZOLE 40 MG/10 ML VIAL IVP SCH (08:18)
[2022-12-14] MEDS: METOPROLOL TARTRATE 12.5 MG TAB PO SCH ×2 (08:18→21:28)
[2022-12-14] MEDS: RIVAROXABAN 2.5 MG TABLET PO SCH ×2 (08:18→21:28)
--- NOTE | 2022-12-14 08:19 | P.PN ---
Subjective Progress Note Date: 12/14/22 Patient is a 77-year-old male with coronary artery disease, hypertension, dyslipidemia, chronic diastolic congestive heart failure with ejection fraction 60-65%, severe COPD on home O2 at 3 L nasal cannula, pulmonary hypertension, and history of CVA with memory impairment on low-dose Xarelto due to prior pulmonary embolus on who presented via EMS for difficulty in breathing. The presentation to the ER he was in respiratory distress with a respiratory rate of 24, heart rate of 140, and was requiring BiPAP. Chest x-ray demonstrated atypical pneumonia. Laboratory analysis was remarkable for white blood cell count of 16.5, potassium 5.7, BUN 35, creatinine 1.33, troponin 0.025. At that time influenza A/B/RC/COVID-19 testing was negative. Patient was diagnosed with pneumonia resulting in sepsis and COPD exacerbation. He was started on antibiotics, steroids, and arrangements were made for admission to the telemetry unit. Pulmonary and cardiology were consulted. He was continued on broad- spectrum antibiotics and steroids as well as optimize bronchodilators. He was extubated on 12/11. He did require BiPAP after extubation. Imaging: Echocardiogram: Ejection fraction 55-60%, mild pulmonary hypertension Chest x-ray: Scattered lower lung infiltrate Liver ultrasound: Cholelithiasis without evidence of acute cholecystitis Patient seen and examined at bedside. He is very lethargic and required reinitiation of BiPAP today per nursing due to respiratory distress. He does complain of some shortness of breath and feeling tired. He is otherwise rather non-conversational due to his level of fatigue and lethargy. Vital signs reviewed General: nontoxic, no distress, appears at stated age Cardiovascular: S1S2 reg, no murmur, positive posterior tibial pulse bilateral, Lungs: Wheeze on the left bilateral, no rhonchi, no rales , no accessory muscle use Abdominal: soft, nontender to palpation, no guarding, no appreciable organomegaly Ext: no gross muscle atrophy, trace pedal edema, no contractures Neuro: CN II-XI grossly intact, no focal neuro deficits Psych: Letheragic, oriented to slef, appropriate affect Assessment: Acute exacerbation of COPD, possible pseudomonal pneumonia -Pseudomonas was cultured and the sputum this is difficult to determine if it is a true infection versus colonization: Patient has been maintained on cefepime Acute on chronic hypoxic hypercapnic respiratory failure, status post extubation Sepsis due to Pseudomonas Hypertensive urgency Transaminitis Cholelithiasis without any signs of acute cholecystitis Results: Sinus tachycardia Acute kidney injury Chronic: Chronic diastolic heart failure with ejection fraction 55-60% Coronary artery disease Dementia Overactive bladder History of pulmonary embolism and stroke on low-dose Xarelto Hypertension Dyslipidemia GERD Acute metabolic encephalopathy Imaging: Chest x-ray is reviewed by myself on 12/14/22 shows no acute process Data Review: Vital signs reviewed from this morning and pulse is 78, respirations 14, blood pressure 147/62, O2 sat 95% on 40% FiO2 Urinalysis from 12/14 reviewed and remarkable for white blood cell count of 17 (up from 16.3), BUN 26 Blood sugars reviewed a.m. fasting 192, midnight 154 Plan: -Pulmonary no reviewed from 12/14: Continue with BiPAP and alternate with high flow nasal cannula, continue on cefepime, Solu-Medrol, budesonide, and from Adderall. Continue with as needed blood pressure medications -Continue with DuoNeb 4 times daily scheduled and every 4 hours as needed, budesonide 1 mg inhalation twice daily, Solu-Medrol 20 g inhalation twice daily -Continue with Norvasc 10 mg by mouth daily started on 12/13, continue Catapres 0.2 mg every 8 hours, metoprolol 12.5 mg twice daily -We will add lisinopril 10 mg daily and hope to decrease Vasotec use. Once patient has no lobar requiring when necessary Vasotec we'll attempt to wean Catapres as long-term use of this medication is associated with rebound hypertension if doses are missed. -Continue with Vasotec 2.5 mg IV push every 6 hours -Continue with methylprednisolone 60 IV every 6 -Xarelto 2.5 mg twice daily -For treatment of pneumonia patient has completed a course of 3 days of Zithromax, he received 1 dose of Rocephin, continue with cefepime 2 g every 8 hours day #6 - Consult Palliative care DVT prophylaxis: Xarelto Discussed with: Nursing Anticipated discharge date: Pending Clinical course Anticipated discharge place: Pending Clinical Course This dictation was prepared using [employer] voice recognition software. Though every attempt is made to correct errors during during dictation some may still exist. Objective - Vital Signs Vital signs: Vital Signs Temp 97.4 F L 12/14/22 04:00 Pulse 92 12/14/22 07:00 Resp 16 12/14/22 07:00 BP 168/72 12/14/22 07:00 Pulse Ox 92 L 12/14/22 07:00 FiO2 40 12/14/22 07:00 Intake & Output 12/13/22 12/14/22 12/14/22 18:59 06:59 18:59 Intake Total 680 580 40 Output Total 1070 2275 75 Balance -390 -1695 -35 Weight 71 kg Intake: IV 480 580 40 Cefepime 2 gm In Sodium 100 Chloride 0.9% 100 ml @ 25 mls/hr IVPB Q8H [facility] Rx#: [id number] Sodium Chloride 0.9% 1, 480 480 40 000 ml @ 40 mls/hr IV . Q24H [facility] Rx#:[id number] Oral 200 Output: Urine 1070 2275 75 Other: Voiding Method Indwelling Catheter Indwelling Catheter # Bowel Movements 1 - Labs CBC & Chem 7: 12/14/22 04:30 12/14/22 04:30 Labs: Abnormal Lab Results - Last 24 Hours (Table) 12/13/22 12/13/22 12/14/22 Range/Units 11:44 18:08 00:03 WBC (3.8-10.6) k/uL RBC (4.30-5.90) m/uL Hgb (13.0-17.5) gm/dL Neutrophils # (1.3-7.7) k/uL Lymphocytes # (1.0-4.8) k/uL Carbon Dioxide (22-30) mmol/L BUN (9-20) mg/dL Glucose (74-99) mg/dL POC Glucose (mg/dL) 161 H 131 H 154 H (70-110) mg/dL 12/14/22 12/14/22 12/14/22 Range/Units 04:30 04:30 06:35 WBC 17.0 H (3.8-10.6) k/uL RBC 4.08 L (4.30-5.90) m/uL Hgb 12.6 L (13.0-17.5) gm/dL Neutrophils # 16.0 H (1.3-7.7) k/uL Lymphocytes # 0.4 L (1.0-4.8) k/uL Carbon Dioxide 32 H (22-30) mmol/L BUN 26 H (9-20) mg/dL Glucose 162 H (74-99) mg/dL POC Glucose (mg/dL) 192 H (70-110) mg/dL Microbiology - Last 24 Hours (Table) 12/09/22 09:05 Blood Culture - Preliminary Blood 12/09/22 09:20 Blood Culture - Preliminary Blood
[2022-12-14] MEDS: FORMOTEROL FUMARATE 20 MCG/2 ML NEBU INHALATION SCH ×2 (08:49→21:07)
[2022-12-14] MEDS: IPRATROPIUM-ALBUTEROL 3 ML NEB INHALATION SCH ×4 (08:49→21:07)
[2022-12-14] MEDS: BUDESONIDE 1 MG/2 ML NEBU INHALATION SCH ×2 (08:49→21:07)
[2022-12-14] MEDS ORDERED: lisinopriL 10 MG TAB PO SCH (09:00)
[2022-12-14] MEDS: ALPRAZolam 0.5 MG TAB PO PRN ×2 (09:20→18:11)
[2022-12-14 11:43] LABS: Glucose,Whole Blood 161 mg/dL (70-110)
--- NOTE | 2022-12-14 14:05 | P.PN ---
Subjective Progress Note Date: 12/14/22 Principal diagnosis: Acute hypoxic and hypercapnic respiratory failure, multifactorial secondary to pseudomonal pneumonia and COPD exacerbation Visit 76-year-old male patient presented to [facility] department because of worsening shortness of breath. The patient is known to have severe COPD with an FEV1 of 49% of predicted at baseline. He has underlying dementia, hypertension and hyperlipidemia and previous history of pulmonary embolism and he has been maintained on long-term xarelto . I was unable to interview the patient. As by the time I arrived, he was having agonal breathing while being on a BiPAP. I came to find other the patient was already being supported with BiPAP since he came in his breathing was progressively getting worse. He was unable to provide any history. He was unresponsive, and at that point, I intubated this patient in the emergency department. Currently is intubated on a mechanical ventilator. Is on assist-control at the rate of 26, tidal volume of 400, FiO2 of 100% with a PEEP of 5. Most recent blood pressure is 159/90. He is on propofol running at 40 mcg/kg/m. Intubation process was done without any complications. Chest x-ray is consistent with you. Post intubation chest x-rays pending. Meanwhile, his blood work from today showed a basic of 16.9 with a hemoglobin of 15 and a platelet count of 336. Normal coagulation profile. BUN is at 35 with a creatinine of 1.38. Sodium is 136. Potassium level is at 5.7. LFTs are s lightly elevated with an AST of 61, ALT of 84, alkaline phosphatase of 131, proBNP is nonelevated at 102 and the patient has a negative Covid 19 testing, negative influenza and negative RSV. Blood gases pending. Post intubation chest x-rays pending. He has not required any pressors. He is afebrile. He was started on Rocephin and Zithromax and is also on IV Solu-Medrol. No reported chest pain. EKG showed no ischemic changes. It is consistent with sinus tachycardia. I am seeing this patient in follow-up 12/10/2022 in the intensive care unit. He remains intubated on mechanical ventilator with settings of assist control, respiratory rate 26, tidal volume 450, FiO2 40%, PEEP of 5. ABGs done on the settings show PO2 130, pCO2 of 40, pH of 7.36. Patient's FiO2 is dropped 35%. Chest x-ray from this morning shows endotracheal tube approximately 2 cm above the armando, improved bibasilar infiltrates, small right pleural effusion, and chronic COPD changes. Sputum culture is pending. Patient is covered on a combination of Zithromax, cefepime, and vancomycin. Patient has been afebrile overnight. Procalcitonin level was only mildly elevated at 0.17. Patient's CBC shows a WBC count down to 13.7, hemoglobin 12.6, hematocrit 39.3, platelets 249,000. BMP from this morning shows a sodium 133, potassium 5.2, chloride 106, serum CO2 24, BUN of 27, creatinine 1.01, glucose 153. Patient is currently sedated on propofol 20 mics per kilogram per minute. He does wake up and follow commands to verbal stimulation. So has normal saline infusing at 130 ML's per hour. He has not required any vasopressors. Urine output in the order of 40-50 mL an hour. He has not been started on tube feeds yet. Peak airway pressures are 35 and plateau pressure 17. He remains on bronchodilators, IV Solu-Medrol. Patient is mildly elevated, and a liver ultrasound is pending. Vital signs are stable at this time. On today's evaluation of 12/11/2022, I'm seeing the patient for a follow-up. The patient remains intubated on a mechanical ventilator. This morning he is taken off the sedation and the patient is awake and alert and following simple commands. He remains on mechanical ventilator for now on assist control mode at the rate of 26, tidal volume of 450, FiO2 of 30% with a PEEP of 5. Blood gases from today shows a pH of 7.33 with a pCO2 of 43 and pO2 of 82 and this was an FiO2 of 30%. Chest x-ray from today shows emphysema without any acute abnormalities. The patient remains on a combination of bronchodilators and steroids. The sputum sample was positive for pseudomonas aeruginosa and the patient is currently on IV cefepime and Zithromax has been discontinued. He remains on bronchodilators. He remains on steroids. He is also on long-term and coagulation with Xarelto 2.5 mg by mouth twice a day. He is also on normal saline at rate of 40 mL an hour. His cardiac rhythm is sinus. Urine output is adequate. The overall fluid balance has been +1.6 L over the past 24 hours. On 12/12/2022, the patient was extubated yesterday and the patient is currently on BiPAP at a pressure of 12/5 cm of water. He is currently on FiO2 of 40% in his oxygenation is adequate with a saturation of 90%. Is able to generate approximately 800 mL on his BiPAP machine in terms of his tidal volume. His minute ventilation is around 13 L. He remains bronchospastic and wheezy. His breathing is nonlabored on the BiPAP. Once switched to nasal cannula, his oxygen saturations remains unchanged, however his work of breathing gets worse. As such, we'll try to keep him on a BiPAP for most of the day. He is hemodynamically stable. Cardiac rhythm is sinus. He is awake and alert and is also communicating. Noted. Pseudomonas in his sputum and the patient is currently on IV cefepime. He remains on bronchodilators. He remains on steroids. IV fluids are running in the form of normal saline at rate of 30 mL an hour. White cell count is at 23.8 with a hemoglobin 11.5, BUN is at 33 with a creatinine of 0.9 and sodium level is 143. Blood pressure is slightly elevated and the patient was given IV Vasotec. The chest x-ray from today shows hyperinflation, no acute pulmonary infiltrates. 12/13/2022, the patient was transitioned again to BiPAP. After being on high flow oxygen overnight at 45 L with an FiO2 of 40%, the patient was placed again on BiPAP this morning at a pressures of 12/5 with an FiO2 of 35%. Oxygenation remains stable at 97%. His generating adequate tidal volume. His minute ventilation is also adequate at 6 L/m nasal cannula. No chest x-rays available from today. Most recent x-rays were essentially clear. History recovering from acute COPD exacerbation. He is post ventilator dependent respiratory failure and he was extubated approximately 48 hours ago. He is tolerating the BiPAP while. Note that he is also Pseudomonas in his sputum and the patient is being treated accordingly with IV cefepime. Remains on bronchodilators and steroids. The white cell count is down to 16.3 with a hemoglobin of 12 and a platelet count of 283. BUN is 32 with a creatinine of 0.9 and his sodium level is at 141. Also, the patient is on DuoNeb nebulized treatments [id number], IV Solu-Medrol, IV cefepime, and he is also on long-term anticoagulation for now. His cough is still congested. We'll proceed with adequate pulmonary toileting. His blood pressure was also elevated. He was started on clonidine and this will be continued at a dose of 0.2 mg every 8 hours on a regular basis. He is also receiving Vasotec 2.5 mg IV every 6 hours on a when necessary basis. He was not taking any form of antihypertensive medications on outpatient basis. He was maintained on Lopressor which is still on board at 12.5 mg by mouth twice a day. Reevaluated today on 12/14/2022, patient remains in the ICU, remains on BiPAP w ith IPAP of 12 and EPAP of 6 and FiO2 35%. Receiving IV fluid in the form of 0.9 normal saline at 50 mL per hour patient is also receiving cefepime for his pseudomonal infection/pneumonia. Patient was on mechanical ventilation from 12/09 until 12/11. Patient remains marginal at best, seems to be almost BiPAP dependent. Does not tolerate going on nasal cannula, or airvo. Seems to be more comfortable with BiPAP, chest x-ray showed no evidence of active disease, he has mostly COPD changes. WBC count remains elevated at 17.0, nonetheless slightly better than it was a few days ago 23.8. Basic metabolic profile is normal, renal profile is normal patient remains on methylprednisolone 60 mg IV push every 6 hours, he is also on Xarelto 2.5 twice a day, patient is receiving cefepime for his pseudomonal infection, and remains on bronchodilators again patient is marginal at best. Objective - Vital Signs Vital signs: Vital Signs Temp 97.3 F L 12/14/22 12:00 Pulse 99 12/14/22 13:30 Resp 21 12/14/22 13:30 BP 156/75 12/14/22 13:30 Pulse Ox 96 12/14/22 13:30 FiO2 35 12/14/22 12:34 Intake & Output 12/13/22 12/14/22 12/14/22 18:59 06:59 18:59 Intake Total 680 580 380 Output Total 5874 6063 996 Balance -390 -1695 -610 Weight 71 kg 71 kg Intake: IV 480 580 380 Cefepime 2 gm In Sodium 100 100 Chloride 0.9% 100 ml @ 25 mls/hr IVPB Q8H [facility] Rx#: [id number] Sodium Chloride 0.9% 1, 480 480 280 000 ml @ 40 mls/hr IV . Q24H [facility] Rx#:[id number] Oral 200 Output: Urine 1070 2275 990 Other: Voiding Method Indwelling Catheter Indwelling Catheter Indwelling Catheter # Bowel Movements 1 - Exam Physical Exam: Revealed 77-year-old white male on BiPAP, not in distress. Head: Atraumatic normocephalic. HEENT:[Neck is supple.] [No neck masses.] [No thyromegaly.] [No JVD.] Chest: [Diminished breath sound bilaterally, scattered rhonchi and wheezes noted bilaterally. Cardiac Exam: [Normal S1 and S2, no S3 gallop, no murmur.] Abdomen: [Soft, nontender, no megaly, no rebound, no guarding, normal bowel sounds.] Extremities: [No clubbing, no edema, no cyanosis.] Neurological Exam: [No focal neurologic deficit.] Alert oriented 3, but seems to be a bit slow. Psychiatric: Normal mood, flat affect, normal mental status examination. Skin: No rashes - Labs CBC & Chem 7: 12/14/22 04:30 12/14/22 04:30 Labs: Abnormal Lab Results - Last 24 Hours (Table) 12/13/22 12/14/22 12/14/22 Range/Units 18:08 00:03 04:30 WBC 17.0 H (3.8-10.6) k/uL RBC 4.08 L (4.30-5.90) m/uL Hgb 12.6 L (13.0-17.5) gm/dL Neutrophils # 16.0 H (1.3-7.7) k/uL Lymphocytes # 0.4 L (1.0-4.8) k/uL Carbon Dioxide (22-30) mmol/L BUN (9-20) mg/dL Glucose (74-99) mg/dL POC Glucose (mg/dL) 131 H 154 H (70-110) mg/dL 12/14/22 12/14/22 12/14/22 Range/Units 04:30 06:35 11:42 WBC (3.8-10.6) k/uL RBC (4.30-5.90) m/uL Hgb (13.0-17.5) gm/dL Neutrophils # (1.3-7.7) k/uL Lymphocytes # (1.0-4.8) k/uL Carbon Dioxide 32 H (22-30) mmol/L BUN 26 H (9-20) mg/dL Glucose 162 H (74-99) mg/dL POC Glucose (mg/dL) 192 H 161 H (70-110) mg/dL Microbiology - Last 24 Hours (Table) 12/09/22 09:05 Blood Culture - Preliminary Blood 12/09/22 09:20 Blood Culture - Preliminary Blood Assessment and Plan Assessment: Impression: Acute on chronic hypoxic and hypercapnic respiratory failure secondary to acute exacerbation of COPD. Altered mental status, secondary to toxic metabolic encephalopathy. Suspect acute pseudomonas aeruginosa pneumonia, chest x-ray is showing improvement. Chronic hypoxic respiratory failure on 3 L nasal on outpatient basis. History of mild underlying dementia Coronary arteriosclerosis History of hiatal hernia Ex-smoker X drinker History of pulmonary embolism maintained on long-term anticoagulations therapy/Xarelto. Benign essential hypertension History of TIA Cholelithiasis without acute cholecystitis. Recommendation: Continue to monitor in the ICU. Continue BiPAP Continue bronchodilators and steroids Continue cefepime Continue Xarelto Continue Protonix for GI prophylaxis continue Solu-Medrol. Continue Catapres for blood pressure control and continue metoprolol We will continue to follow. Prognosis remains guarded Time with Patient: Less than 30
[2022-12-14 16:33] LABS: Glucose,Whole Blood 226 mg/dL (70-110)
[2022-12-14] MEDS ORDERED: DEXTROSE 50% SYRINGE 50 ML IVP PRN ×2 (16:33)
[2022-12-14] MEDS: INSULIN ASPART (NovoLOG) 100 UNIT/ML VIAL SQ SCH ×2 (17:03→21:28)
--- NOTE | 2022-12-14 19:34 | P.PN ---
Progress Note - Text Progress Note Date: 12/14/22 The patient is BiPAP dependent today. Per Nursing staff he is not able to toleratae Airvo. He has conversational dyspnea with the BiPAP on. He asked me to contact his daughter, Rica. Attempted to reach her via telephone. Left voicemail and awaiting call back. The patient was able to confirm that he wants to be a DNR. Jo Ann Rubio [facility] Palliative Care Spectralink [phone] Email: [email or web address]
[2022-12-14 21:04] LABS: Glucose,Whole Blood 156 mg/dL (70-110)
[2022-12-15] MEDS: methylPREDNISolone SOD SUCCI 125 MG/2 ML VIAL IV SCH ×4 (00:41→18:51)
[2022-12-15] MEDS: CEFEPIME 2 GM in SODIUM CHLORIDE 0.9% 100 ML IVPB SCH ×3 (04:07→20:07)
[2022-12-15 04:48] LABS: Basophils % (A) 0 %; Eosinophils % (A) 0 %; HCT 37.9 % (39.0-53.0); HGB 11.9 gm/dL (13.0-17.5); Lymphocytes # (A) 0.4 k/uL (1.0-4.8); Lymphocytes % (A) 3 %; MCH 31.1 pg (25.0-35.0); MCHC 31.3 g/dL (31.0-37.0); MCV 99.2 fL (80.0-100.0); Monocytes # (A) 0.3 k/uL (0-1.0); Monocytes % (A) 2 %; Neutrophils # (A) 13.4 k/uL (1.3-7.7); Neutrophils % (A) 94 %; Platelet Count 291 k/uL (150-450); RBC 3.82 m/uL (4.30-5.90); RDW 13.2 % (11.5-15.5); WBC 14.2 k/uL (3.8-10.6)
[2022-12-15 04:52] LABS: African American GFR (CKD) >90 (>60 ml/min/1.73 sqM); Anion Gap -1 mmol/L; Blood Urea Nitrogen 27 mg/dL (9-20); Calcium 7.9 mg/dL (8.4-10.2); Carbon Dioxide 35 mmol/L (22-30); Chloride 103 mmol/L (98-107); Glucose 149 mg/dL (74-99); Non-African American GFR(CKD) 87 (>60 ml/min/1.73 sqM); Potassium 4.5 mmol/L (3.5-5.1); Sodium 137 mmol/L (137-145)
[2022-12-15] MEDS: cloNIDine HCL 0.1 MG TAB PO SCH ×3 (06:35→21:51)
[2022-12-15 06:47] LABS: Glucose,Whole Blood 156 mg/dL (70-110)
[2022-12-15] MEDS: INSULIN ASPART (NovoLOG) 100 UNIT/ML VIAL SQ SCH ×4 (06:55→21:51)
[2022-12-15] MEDS: SODIUM CHLORIDE 0.9% 1,000 ML IV SCH (06:56)
[2022-12-15] MEDS: ACETAMINOPHEN TAB 325 MG TAB PO PRN ×2 (07:49→15:59)
--- NOTE | 2022-12-15 08:14 | XR ---
EXAMINATION TYPE: XR chest 1V portable DATE OF EXAM: 12/15/2022 Comparison: 12/14/2022, 12/04/2021 Clinical History: 77-year-old male COPD Findings: Heart normal size. Atherosclerotic arch calcifications. Hyperinflation. Mild patchy medial right basi lar opacity appears to be slightly increased. Asymmetric left hilar prominence appears to be a chroni c finding. No pleural effusion. Impression: 1. COPD. Patchy medial right basilar opacity appears to be increased. Correlate to exclude developing pneumonia here. 2. Asymmetric left hilar prominence appears to be a chronic finding.
[2022-12-15] MEDS: BUDESONIDE 1 MG/2 ML NEBU INHALATION SCH ×2 (08:20→21:41)
[2022-12-15] MEDS: IPRATROPIUM-ALBUTEROL 3 ML NEB INHALATION SCH ×4 (08:20→21:41)
[2022-12-15] MEDS: FORMOTEROL FUMARATE 20 MCG/2 ML NEBU INHALATION SCH ×2 (08:33→21:41)
[2022-12-15] MEDS ORDERED: lisinopriL 20 MG TAB PO SCH (09:00)
[2022-12-15] MEDS: amLODIPine 10 MG TAB PO SCH (09:41)
[2022-12-15] MEDS: METOPROLOL TARTRATE 12.5 MG TAB PO SCH ×2 (09:41→21:51)
[2022-12-15] MEDS: PANTOPRAZOLE 40 MG/10 ML VIAL IVP SCH (09:41)
[2022-12-15] MEDS: GABAPENTIN 300 MG CAP PO SCH ×3 (09:41→21:51)
[2022-12-15] MEDS: RIVAROXABAN 2.5 MG TABLET PO SCH ×2 (09:42→21:51)
--- NOTE | 2022-12-15 10:33 | P.PN ---
Subjective Progress Note Date: 12/15/22 Patient is a 77-year-old male with coronary artery disease, hypertension, dyslipidemia, chronic diastolic congestive heart failure with ejection fraction 60-65%, severe COPD on home O2 at 3 L nasal cannula, pulmonary hypertension, and history of CVA with memory impairment on low-dose Xarelto due to prior pulmonary embolus on who presented via EMS for difficulty in breathing. The presentation to the ER he was in respiratory distress with a respiratory rate of 24, heart rate of 140, and was requiring BiPAP. Chest x-ray demonstrated atypical pneumonia. Laboratory analysis was remarkable for white blood cell count of 16.5, potassium 5.7, BUN 35, creatinine 1.33, troponin 0.025. At that time influenza A/B/RC/COVID-19 testing was negative. Patient was diagnosed with pneumonia resulting in sepsis and COPD exacerbation. He was started on antibiotics, steroids, and arrangements were made for admission to the telemetry unit. Pulmonary and cardiology were consulted. He was continued on broad- spectrum antibiotics and steroids as well as optimize bronchodilators. He was extubated on 12/11. He did require BiPAP after extubation. He was very slow to improve and palliative care was consulted. Imaging: Echocardiogram: Ejection fraction 55-60%, mild pulmonary hypertension Chest x-ray: Scattered lower lung infiltrate Liver ultrasound: Cholelithiasis without evidence of acute cholecystitis Patient seen and examined at bedside. He is more awake today, he is still felling short of breath. He did eat a little today, but states it is hard with his breathing. He has no chest pain. Vital signs reviewed General: nontoxic, no distress, appears at stated age Cardiovascular: S1S2 reg, no murmur, positive posterior tibial pulse bilateral, Lungs: Diminished bs b/l, no rhonchi, no rales , no accessory muscle use Abdominal: soft, nontender to palpation, no guarding, no appreciable organomegaly Ext: no gross muscle atrophy, no edema, no contractures Neuro: CN II-XI grossly intact, no focal neuro deficits Psych: Lethargic, oriented, appropriate affect Assessment: Acute exacerbation of COPD, possible pseudomonal pneumonia -Pseudomonas was cultured and the sputum this is difficult to determine if it is a true infection versus colonization: Patient has been maintained on cefepime Acute on chronic hypoxic hypercapnic respiratory failure, status post extubation Acute metabolic encephalopathy Sepsis due to Pseudomonas Hypertensive urgency Transaminitis Cholelithiasis without any signs of acute cholecystitis Results: Sinus tachycardia Acute kidney injury Chronic: Chronic diastolic heart failure with ejection fraction 55-60% Coronary artery disease Dementia Overactive bladder History of pulmonary embolism and stroke on low-dose Xarelto Hypertension Dyslipidemia GERD Imaging: Chest x-ray from 12/15 no acute process Data Review: Temperature 90.8, pulse 56, respirations 16, blood pressure 157/84, O2 sat 98% on 40% BiPAP Laboratory is reviewed and white blood cell count 14.2 (down from 17), hemoglobin 11.9, BUN 27, creatinine 0.78, glucose 156 Blood sugars reviewed and yesterday were 156, 226, 161, and 192 Plan: -Pulmonary note reviewed from 12/14: Continue with BiPAP, bronchodilators, steroi ds, and cefepime. -Palliative care note reviewed: Awaiting call back from daughter -Continue with DuoNeb 4 times daily scheduled and every 4 hours as needed, budesonide 1 mg inhalation twice daily, Formoterol 20 g inhalation twice daily -Continue with Norvasc 10 mg by mouth daily started on 12/13, Decreased Catapres to 0.1 mg every 8 hours ( this is not a good nursing home option) and increase lisinopril to 20 mg, metoprolol 12.5 mg twice daily -Disconitnue vasotec -Continue with methylprednisolone 60 IV every 6 -Xarelto 2.5 mg twice daily -For treatment of pneumonia patient has completed a course of 3 days of Zithromax, he received 1 dose of Rocephin, continue with cefepime 2 g every 8 hours day #7 DVT prophylaxis: Xarelto Discussed with: Nursing Anticipated discharge date: Pending Clinical course Anticipated discharge place: Pending Clinical Course This dictation was prepared using NoWait voice recognition software. Though every attempt is made to correct errors during during dictation some may still exist. Objective - Vital Signs Vital signs: Vital Signs Temp 98.0 F 12/15/22 04:00 Pulse 91 12/15/22 07:00 Resp 15 12/15/22 07:00 BP 133/78 12/15/22 07:00 Pulse Ox 96 12/15/22 07:00 FiO2 40 12/15/22 04:34 Intake & Output 12/14/22 12/15/22 12/15/22 18:59 06:59 18:59 Intake Total 620 1070 Output Total 1940 1060 Balance -1320 10 Weight 71 kg 72 kg Intake: IV 620 720 Cefepime 2 gm In Sodium 100 200 Chloride 0.9% 100 ml @ 25 mls/hr IVPB Q8H [facility] Rx#: [id number] Sodium Chloride 0.9% 1, 520 520 000 ml @ 40 mls/hr IV . Q24H [facility] Rx#:[id number] Oral 350 Output: Urine 194 1060 Other: Voiding Method Indwelling Catheter Indwelling Catheter # Bowel Movements 1 - Labs CBC & Chem 7: 12/15/22 04:32 12/15/22 04:32 Labs: Abnormal Lab Results - Last 24 Hours (Table) 12/14/22 12/14/22 12/14/22 Range/Units 11:42 16:32 21:02 WBC (3.8-10.6) k/uL RBC (4.30-5.90) m/uL Hgb (13.0-17.5) gm/dL Hct (39.0-53.0) % Neutrophils # (1.3-7.7) k/uL Lymphocytes # (1.0-4.8) k/uL Carbon Dioxide (22-30) mmol/L BUN (9-20) mg/dL Glucose (74-99) mg/dL POC Glucose (mg/dL) 161 H 226 H 156 H (70-110) mg/dL Calcium (8.4-10.2) mg/dL 12/15/22 12/15/22 12/15/22 Range/Units 04:32 04:32 06:47 WBC 14.2 H (3.8-10.6) k/uL RBC 3.82 L (4.30-5.90) m/uL Hgb 11.9 L (13.0-17.5) gm/dL Hct 37.9 L (39.0-53.0) % Neutrophils # 13.4 H (1.3-7.7) k/uL Lymphocytes # 0.4 L (1.0-4.8) k/uL Carbon Dioxide 35 H (22-30) mmol/L BUN 27 H (9-20) mg/dL Glucose 149 H (74-99) mg/dL POC Glucose (mg/dL) 156 H (70-110) mg/dL Calcium 7.9 L (8.4-10.2) mg/dL Microbiology - Last 24 Hours (Table) 12/09/22 09:05 Blood Culture - Preliminary Blood 12/09/22 09:20 Blood Culture - Preliminary Blood
--- NOTE | 2022-12-15 10:35 | P.CONS ---
History of Present Illness - Reason for Consult Consult date: 12/15/22 [facility] Requesting physician: Suzie Wen - Chief Complaint Shortness of breath - History of Present Illness The patient is a 77-year-old male with a past medical history of CAD, hypertension, hyperlipidemia, chronic diastolic congestive heart failure with an EF of 60-65%, severe COPD, FEV1 49% of predicted, on 3 L home O2, pulmonary hypertension, CVA with memory impairment, PE on Xarelto, and MA. He presented to the emergency department on 12/09/22 with complaints of worsening shortness of breath. Upon arrival to our facility patient was found to be in respiratory distress with tachypneic labored respirations at 24 breaths per minute, tachycardic with heart rate 140s, hypertensive a blood pressure 162/105, temp 97.9F and hypoxic requiring placement on BiPAP. Patient states history of pneumonia and reported he was last treated outpatient for pneumonia back in August and reports that he did recover, but has since not quite been back to his baseline. Patient denied having any headache, lightheadedness, dizziness, chest pain, palpitations, or experiencing any numbness/tingling/weakness/swelling in his extremities. he underwent full evaluation in the emergency department. CXR showed scattered lung field infiltrates concerning for atypical pneumonia. WBC count of 16.5 with left shift with neutrophils of 13.7. BMP revealing hyperkalemia with potassium of 5.7, and an acute kidney injury with BUN 35, creatinine 1.33, and GFR of 51 with baseline creatinine of 0.9. Liver profile revealing transaminitis with acutely elevated LFTs with AST of 61, ALT of 84, and alkaline phosphatase of 131. Troponin 0.025 and pro-BMP of 102. Influenza A, influenza B, RSV, and Covid PCR were completed all with negative findings. The patient was seen in the emergency department by the shirt marker. At that time the patient was unresponsive and was intubated. He was started on Rocephin, Zithromax, bronchodilators, and IV Solu-Medrol. The patient was able to be extubated on 12/11/22 and was placed on BiPAP. Sputum cultures grew Pseudomonas and patient was given cefepime. The patient was not able to tolerate Airvo for very long and seemed to be almost BiPAP dependent. 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 Last Myocardial Infarction Date:: unknown History of Any Multi-Drug Resistant Organisms: None Reported Past Surgical History: Back Surgery Additional Past Surgical History / Comment(s): EGD with bx/colonoscopy with bx, bronchoscopy, low back surgery, PICC-since removed. Past Anesthesia/Blood Transfusion Reactions: No Reported Reaction Additional Past Anesthesia/Blood Transfusion Reaction / Comm: Pt has never received blood. Past Psychological History: Anxiety, Depression Additional Psychological History / Comment(s): lives at home with daughter Pt has had increased difficulty with ambulation/falls. Pt has legal guardians, Rica Hess and Ricki Hess III. Smoking Status: Former smoker Past Alcohol Use History: None Reported Additional Past Alcohol Use History / Comment(s): quit smoking 2017, smoked for >50 yrs. Past alcohol abuse-quit drinking August 2015. Past Drug Use History: Cocaine Additional Drug Use History / Comment(s): cocaine use in past-quit 4-5yrs a go.either 2012 or 2013 per pt. - Past Family History Father Family Medical History: Cancer Additional Family Medical History / Comment(s): Father had throat cancer. Mother Family Medical History: Cancer Additional Family Medical History / Comment(s): Mother had breast cancer. Medications and Allergies Home Medications Medication Instructions Recorded Confirmed Type Gabapentin [Neurontin] 600 mg PO TID 11/24/21 12/09/22 History Rivaroxaban [Xarelto] 2.5 mg PO BID 11/24/21 12/09/22 History oxyCODONE-APAP 10-325MG [Percocet 1 tab PO TID-W/MEALS 11/24/21 12/09/22 History 10-325 mg] Albuterol Sulfate [Albuterol 2 puff INHALATION RT-QID PRN 12/09/22 12/09/22 History Sulfate Hfa] Ipratropium-Albuterol Nebulize 3 ml INHALATION RT-QID PRN 12/09/22 12/09/22 History [Duoneb 0.5 mg-3 mg/3 ml Soln] Metoprolol Tartrate [Lopressor] 12.5 mg PO BID 12/09/22 12/09/22 History predniSONE 10 mg PO DAILY 12/09/22 12/09/22 History Allergies Allergy/AdvReac Type Severity Reaction Status Date / Time caffeine AdvReac Diarrhea Verified 12/09/22 08:35 Physical Exam Vitals: Vital Signs Temp Pulse Resp BP Pulse Ox FiO2 12/15/22 09:00 90 14 171/69 98 12/15/22 08:34 93 12/15/22 08:32 93 12/15/22 08:21 93 94 L 40 12/15/22 08:00 97.7 F 100 21 179/87 96 40 12/15/22 07:00 91 15 133/78 96 12/15/22 06:00 70 18 139/57 97 12/15/22 05:00 65 16 140/59 97 12/15/22 04:34 97 40 12/15/22 04:00 98.0 F 56 L 16 157/84 98 40 12/15/22 03:00 76 22 149/73 95 40 12/15/22 02:00 70 18 125/66 94 L 12/15/22 01:06 35 12/15/22 01:00 59 L 16 114/57 96 12/15/22 00:00 98.2 F 57 L 16 117/58 96 35 12/14/22 23:00 66 15 147/75 97 12/14/22 22:50 35 12/14/22 22:00 85 18 135/70 94 L 35 12/14/22 21:26 87 12/14/22 21:17 89 12/14/22 21:10 90 12/14/22 21:00 89 17 170/72 97 12/14/22 20:00 98.0 F 96 19 162/82 96 40 12/14/22 19:34 95 40 12/14/22 19:00 101 H 16 191/82 95 12/14/22 18:30 106 H 19 96 12/14/22 18:00 108 H 22 179/91 96 12/14/22 17:30 112 H 13 179/91 93 L 12/14/22 17:00 105 H 18 140/73 96 12/14/22 16:30 87 15 98 12/14/22 16:25 90 12/14/22 16:12 86 40 12/14/22 16:00 97.6 F 82 17 156/80 98 40 12/14/22 15:30 89 12 98 12/14/22 15:00 96 16 156/75 98 12/14/22 14:30 104 H 14 98 12/14/22 14:16 99 40 12/14/22 14:00 105 H 19 156/75 95 12/14/22 13:30 99 21 156/75 96 12/14/22 13:00 106 H 17 200/88 96 12/14/22 12:44 106 H 12/14/22 12:34 104 H 35 12/14/22 12:30 103 H 18 97 12/14/22 12:00 97.3 F L 108 H 30 H 127/65 91 L 12/14/22 11:30 81 17 94 L 12/14/22 11:00 85 19 145/63 95 12/14/22 10:30 85 17 159/80 12/14/22 10:00 91 20 179/91 95 Intake and Output 12/14/22 12/15/22 12/15/22 22:59 06:59 14:59 Intake Total 620 610 Output Total 1270 515 Balance -650 95 Intake: IV 420 460 Cefepime 2 gm In Sodium 100 100 Chloride 0.9% 100 ml @ 25 mls/hr IVPB Q8H [facility] Rx#: [id number] Sodium Chloride 0.9% 1, 320 360 000 ml @ 40 mls/hr IV . Q24H [facility] Rx#:[id number] Oral 200 150 Output: Urine 1270 515 Other: Voiding Method Indwelling Catheter Indwelling Catheter Indwelling Catheter # Bowel Movements 1 Weight 72 kg General: Well developed, well nourished. Chronically ill appearing HEENT: Head is atraumatic, normocephalic. Sclera are clear. CV: Heart regular in rate and rhythm Lungs: Increased work of breathing with accessory muscle use and conversational dyspnea, on Airvo 40% FiO2, 50L. Abdomen/GI: Soft, nondistended, nontender. : Monet catheter draining clear yellow urine Musculoskeletal/ Extremities: No contractures or gross atrophy. + generalized weakness Skin: Warm and dry Neurologic: Awake, alert and oriented times 3. CN II-XII grossly intact. Psychiatric: Flat affect Results CBC & Chem 7: 12/15/22 04:32 12/15/22 04:32 Labs: Abnormal Lab Results - Last 24 Hours (Table) 12/14/22 12/14/22 12/14/22 Range/Units 11:42 16:32 21:02 WBC (3.8-10.6) k/uL RBC (4.30-5.90) m/uL Hgb (13.0-17.5) gm/dL Hct (39.0-53.0) % Neutrophils # (1.3-7.7) k/uL Lymphocytes # (1.0-4.8) k/uL Carbon Dioxide (22-30) mmol/L BUN (9-20) mg/dL Glucose (74-99) mg/dL POC Glucose (mg/dL) 161 H 226 H 156 H (70-110) mg/dL Calcium (8.4-10.2) mg/dL 12/15/22 12/15/22 12/15/22 Range/Units 04:32 04:32 06:47 WBC 14.2 H (3.8-10.6) k/uL RBC 3.82 L (4.30-5.90) m/uL Hgb 11.9 L (13.0-17.5) gm/dL Hct 37.9 L (39.0-53.0) % Neutrophils # 13.4 H (1.3-7.7) k/uL Lymphocytes # 0.4 L (1.0-4.8) k/uL Carbon Dioxide 35 H (22-30) mmol/L BUN 27 H (9-20) mg/dL Glucose 149 H (74-99) mg/dL POC Glucose (mg/dL) 156 H (70-110) mg/dL Calcium 7.9 L (8.4-10.2) mg/dL Microbiology - Last 24 Hours (Table) 12/09/22 09:05 Blood Culture - Preliminary Blood 12/09/22 09:20 Blood Culture - Preliminary Blood Chest x-ray: report reviewed Assessment and Plan Assessment: Social * Occupation - retired * Marital status - * Children/grandchildren - 2 adult sons, one adult daughter, one daughter * Residence - mobile home * Who do you reside with - with daughterRica * ETOH - history of EtOH abuse, last drink in 2016 * Tobacco - former smoker, quit in 2016 * Illicit drugs - none reported Spiritual/Cultural * A spiritual person - somewhat * Moravian - Sabianism * Belong to a particular yarsani - no * Beliefs a source of comfort and strength - a little * Mosque or cultural practices restrictions - no * EOL considerations/rituals - no Functional Assessment (prior to admission) * Able to walk independently - yes * Assistive devices - patient uses a walker for long distances so he can sit when he gets sob * Able to use the bathroom independently - yes * Continent - yes * Require assistance bathing- no * Able to feed self - yes * Who prepares meals - daughter * Able to clean house/do laundry - daughter * Transportation - patient does not drive, daughter provides transportaion * Able to shop - no * Who manages medications -daughter * Who manages finances - daughter Psychological/Emotional * Dementia present - no * Insight and judgment - intact * Depression - occasional * Suicidal thoughts - no * Good support system - yes * Patients goals - undecided - optimize functionality or comfort * Frequent hospitalizations - yes * Desire to keep coming back to the hospital for treatment - no * Symptoms * Pain - 2-/10 headache, continue Tylenol and Neurontin * Fatigue - low energy, + generalized weakness and fatigue * SOB - yes, currently on Airvo, continue DuoNeb, Pulmicort, cefepime, Perforomist, and Solu-Medrol * Insomnia - no * N/V - no * Anxiety - yes, continue Xanax * Depression - occasional * Confusion - no * Agitation - no * Hallucinations - no * Appetite/weight loss - decreased appetite, BMI 24.1, continue regular diet * Dysphagia - yes, currently on a dysphagia level 3, chopped diet * Constipation - No, LBM 12/14 * Incontinence - No, Monet catheter present * Itch - No * Cough - Yes, congested cough Plan: Summary/Goals - Spoke with the patient's daughter via telephone this morning. Information provided regarding palliative care and hospice philosophies and services. The patient's daughter recognizes that his breathing has been getting progressively worse. Education provided regarding COPD and CHF progression. She realizes that he is having more frequent exacerbations and pneumonia requiring hospitalizations. Rica and the patient have had recent conversa tions regarding his wishes. He has told her that he is "tired" and "done". He wants to be put in the ground next to his parent. He told her he did not want to live being attached to a machine like the BiPAP, and not able to be active or somewhat independent. There hopes initially where that his breathing would improve significantly enough to go to [facility] for rehab. However, he seems to have lost hope because his lungs are not getting much better. Rica thinks that her father might be open to a hospice informational visit, but would like to give him more time to see if things improve first. Went to the patient's bedside. He is on Airvo today, but still has an increased work of breathing. He has conversational dyspnea and is not able to talk for very long. I told him about my conversation with Rica and our plans moving forward. He was in agreement. Recommendations - rehab with palliative care vs hospice Advanced Directives - None of file Code Status - DNR Thank you for this consultation Jo Ann Rubio [facility] Palliative Care Spectralink [phone] Email: [email or web address]
[2022-12-15 11:32] LABS: Glucose,Whole Blood 122 mg/dL (70-110)
--- NOTE | 2022-12-15 12:33 | P.PN ---
Subjective Progress Note Date: 12/15/22 Principal diagnosis: Acute hypoxic and hypercapnic respiratory failure, multifactorial secondary to pseudomonal pneumonia and COPD exacerbation Visit 76-year-old male patient presented to [facility] department because of worsening shortness of breath. The patient is known to have severe COPD with an FEV1 of 49% of predicted at baseline. He has underlying dementia, hypertension and hyperlipidemia and previous history of pulmonary embolism and he has been maintained on long-term xarelto . I was unable to interview the patient. As by the time I arrived, he was having agonal breathing while being on a BiPAP. I came to find other the patient was already being supported with BiPAP since he came in his breathing was progressively getting worse. He was unable to provide any history. He was unresponsive, and at that point, I intubated this patient in the emergency department. Currently is intubated on a mechanical ventilator. Is on assist-control at the rate of 26, tidal volume of 400, FiO2 of 100% with a PEEP of 5. Most recent blood pressure is 159/90. He is on propofol running at 40 mcg/kg/m. Intubation process was done without any complications. Chest x-ray is consistent with you. Post intubation chest x-rays pending. Meanwhile, his blood work from today showed a basic of 16.9 with a hemoglobin of 15 and a platelet count of 336. Normal coagulation profile. BUN is at 35 with a creatinine of 1.38. Sodium is 136. Potassium level is at 5.7. LFTs are s lightly elevated with an AST of 61, ALT of 84, alkaline phosphatase of 131, proBNP is nonelevated at 102 and the patient has a negative Covid 19 testing, negative influenza and negative RSV. Blood gases pending. Post intubation chest x-rays pending. He has not required any pressors. He is afebrile. He was started on Rocephin and Zithromax and is also on IV Solu-Medrol. No reported chest pain. EKG showed no ischemic changes. It is consistent with sinus tachycardia. I am seeing this patient in follow-up 12/10/2022 in the intensive care unit. He remains intubated on mechanical ventilator with settings of assist control, respiratory rate 26, tidal volume 450, FiO2 40%, PEEP of 5. ABGs done on the settings show PO2 130, pCO2 of 40, pH of 7.36. Patient's FiO2 is dropped 35%. Chest x-ray from this morning shows endotracheal tube approximately 2 cm above the armando, improved bibasilar infiltrates, small right pleural effusion, and chronic COPD changes. Sputum culture is pending. Patient is covered on a combination of Zithromax, cefepime, and vancomycin. Patient has been afebrile overnight. Procalcitonin level was only mildly elevated at 0.17. Patient's CBC shows a WBC count down to 13.7, hemoglobin 12.6, hematocrit 39.3, platelets 249,000. BMP from this morning shows a sodium 133, potassium 5.2, chloride 106, serum CO2 24, BUN of 27, creatinine 1.01, glucose 153. Patient is currently sedated on propofol 20 mics per kilogram per minute. He does wake up and follow commands to verbal stimulation. So has normal saline infusing at 130 ML's per hour. He has not required any vasopressors. Urine output in the order of 40-50 mL an hour. He has not been started on tube feeds yet. Peak airway pressures are 35 and plateau pressure 17. He remains on bronchodilators, IV Solu-Medrol. Patient is mildly elevated, and a liver ultrasound is pending. Vital signs are stable at this time. On today's evaluation of 12/11/2022, I'm seeing the patient for a follow-up. The patient remains intubated on a mechanical ventilator. This morning he is taken off the sedation and the patient is awake and alert and following simple commands. He remains on mechanical ventilator for now on assist control mode at the rate of 26, tidal volume of 450, FiO2 of 30% with a PEEP of 5. Blood gases from today shows a pH of 7.33 with a pCO2 of 43 and pO2 of 82 and this was an FiO2 of 30%. Chest x-ray from today shows emphysema without any acute abnormalities. The patient remains on a combination of bronchodilators and steroids. The sputum sample was positive for pseudomonas aeruginosa and the patient is currently on IV cefepime and Zithromax has been discontinued. He remains on bronchodilators. He remains on steroids. He is also on long-term and coagulation with Xarelto 2.5 mg by mouth twice a day. He is also on normal saline at rate of 40 mL an hour. His cardiac rhythm is sinus. Urine output is adequate. The overall fluid balance has been +1.6 L over the past 24 hours. On 12/12/2022, the patient was extubated yesterday and the patient is currently on BiPAP at a pressure of 12/5 cm of water. He is currently on FiO2 of 40% in his oxygenation is adequate with a saturation of 90%. Is able to generate approximately 800 mL on his BiPAP machine in terms of his tidal volume. His minute ventilation is around 13 L. He remains bronchospastic and wheezy. His breathing is nonlabored on the BiPAP. Once switched to nasal cannula, his oxygen saturations remains unchanged, however his work of breathing gets worse. As such, we'll try to keep him on a BiPAP for most of the day. He is hemodynamically stable. Cardiac rhythm is sinus. He is awake and alert and is also communicating. Noted. Pseudomonas in his sputum and the patient is currently on IV cefepime. He remains on bronchodilators. He remains on steroids. IV fluids are running in the form of normal saline at rate of 30 mL an hour. White cell count is at 23.8 with a hemoglobin 11.5, BUN is at 33 with a creatinine of 0.9 and sodium level is 143. Blood pressure is slightly elevated and the patient was given IV Vasotec. The chest x-ray from today shows hyperinflation, no acute pulmonary infiltrates. 12/13/2022, the patient was transitioned again to BiPAP. After being on high flow oxygen overnight at 45 L with an FiO2 of 40%, the patient was placed again on BiPAP this morning at a pressures of 12/5 with an FiO2 of 35%. Oxygenation remains stable at 97%. His generating adequate tidal volume. His minute ventilation is also adequate at 6 L/m nasal cannula. No chest x-rays available from today. Most recent x-rays were essentially clear. History recovering from acute COPD exacerbation. He is post ventilator dependent respiratory failure and he was extubated approximately 48 hours ago. He is tolerating the BiPAP while. Note that he is also Pseudomonas in his sputum and the patient is being treated accordingly with IV cefepime. Remains on bronchodilators and steroids. The white cell count is down to 16.3 with a hemoglobin of 12 and a platelet count of 283. BUN is 32 with a creatinine of 0.9 and his sodium level is at 141. Also, the patient is on DuoNeb nebulized treatments [id number], IV Solu-Medrol, IV cefepime, and he is also on long-term anticoagulation for now. His cough is still congested. We'll proceed with adequate pulmonary toileting. His blood pressure was also elevated. He was started on clonidine and this will be continued at a dose of 0.2 mg every 8 hours on a regular basis. He is also receiving Vasotec 2.5 mg IV every 6 hours on a when necessary basis. He was not taking any form of antihypertensive medications on outpatient basis. He was maintained on Lopressor which is still on board at 12.5 mg by mouth twice a day. Reevaluated today on 12/14/2022, patient remains in the ICU, remains on BiPAP w ith IPAP of 12 and EPAP of 6 and FiO2 35%. Receiving IV fluid in the form of 0.9 normal saline at 50 mL per hour patient is also receiving cefepime for his pseudomonal infection/pneumonia. Patient was on mechanical ventilation from 12/09 until 12/11. Patient remains marginal at best, seems to be almost BiPAP dependent. Does not tolerate going on nasal cannula, or airvo. Seems to be more comfortable with BiPAP, chest x-ray showed no evidence of active disease, he has mostly COPD changes. WBC count remains elevated at 17.0, nonetheless slightly better than it was a few days ago 23.8. Basic metabolic profile is normal, renal profile is normal patient remains on methylprednisolone 60 mg IV push every 6 hours, he is also on Xarelto 2.5 twice a day, patient is receiving cefepime for his pseudomonal infection, and remains on bronchodilators again patient is marginal at best. Reevaluated today on 12/15/2022, patient is resting comfortably on airvo at 40% FiO2 on 50 L flow, patient does not seem to be in distress, intermittently has been on BiPAP 12/6/35%. Patient remains marginal at best. Still receiving antibiotics for his pseudomonas aeruginosa pneumonia, WBC count is 14.2 hemoglo bin is 11.9 electrolytes are normal basic metabolic profile is normal renal profile is normal, chest x-ray continues to show COPD, patchy medial right basilar opacity consistent with pneumonia Objective - Vital Signs Vital signs: Vital Signs Temp 97.7 F 12/15/22 08:00 Pulse 90 12/15/22 12:16 Resp 18 12/15/22 11:00 BP 146/75 12/15/22 11:00 Pulse Ox 97 12/15/22 12:16 FiO2 40 12/15/22 12:16 Intake & Output 12/14/22 12/15/22 12/15/22 18:59 06:59 18:59 Intake Total 620 1070 520 Output Total 1940 1060 200 Balance -1320 10 320 Weight 71 kg 72 kg Intake: IV 620 720 120 Cefepime 2 gm In Sodium 100 200 Chloride 0.9% 100 ml @ 25 mls/hr IVPB Q8H ABDOULAYE Rx#: [id number] Sodium Chloride 0.9% 1, 520 520 120 000 ml @ 40 mls/hr IV . Q24H ABDOULAYE Rx#:[id number] Oral 350 400 Output: Urine 1939 1060 200 Other: Voiding Method Indwelling Catheter Indwelling Catheter Indwelling Catheter # Bowel Movements 1 - Exam Physical Exam: Revealed 77-year-old white male on airvo at 50 L flow and 40% FiO2 Head: Atraumatic normocephalic. HEENT:[Neck is supple.] [No neck masses.] [No thyromegaly.] [No JVD.] Chest: [Diminished breath sound bilaterally, minimal wheezing on forced expiratory maneuver. Cardiac Exam: [Normal S1 and S2, no S3 gallop, no murmur.] Abdomen: [Soft, nontender, no megaly, no rebound, no guarding, normal bowel sounds.] Extremities: [No clubbing, no edema, no cyanosis.] Neurological Exam: [No focal neurologic deficit.] Alert oriented 3, but seems to be a bit slow. Psychiatric: Normal mood, flat affect, normal mental status examination. Skin: No rashes - Labs CBC & Chem 7: 12/15/22 04:32 12/15/22 04:32 Labs: Abnormal Lab Results - Last 24 Hours (Table) 12/14/22 12/14/22 12/15/22 Range/Units 16:32 21:02 04:32 WBC 14.2 H (3.8-10.6) k/uL RBC 3.82 L (4.30-5.90) m/uL Hgb 11.9 L (13.0-17.5) gm/dL Hct 37.9 L (39.0-53.0) % Neutrophils # 13.4 H (1.3-7.7) k/uL Lymphocytes # 0.4 L (1.0-4.8) k/uL Carbon Dioxide (22-30) mmol/L BUN (9-20) mg/dL Glucose (74-99) mg/dL POC Glucose (mg/dL) 226 H 156 H (70-110) mg/dL Calcium (8.4-10.2) mg/dL 12/15/22 12/15/22 12/15/22 Range/Units 04:32 06:47 11:30 WBC (3.8-10.6) k/uL RBC (4.30-5.90) m/uL Hgb (13.0-17.5) gm/dL Hct (39.0-53.0) % Neutrophils # (1.3-7.7) k/uL Lymphocytes # (1.0-4.8) k/uL Carbon Dioxide 35 H (22-30) mmol/L BUN 27 H (9-20) mg/dL Glucose 149 H (74-99) mg/dL POC Glucose (mg/dL) 156 H 122 H (70-110) mg/dL Calcium 7.9 L (8.4-10.2) mg/dL Microbiology - Last 24 Hours (Table) 12/09/22 09:05 Blood Culture - Final Blood 12/09/22 09:20 Blood Culture - Final Blood Assessment and Plan Assessment: Impression: Acute on chronic hypoxic and hypercapnic respiratory failure secondary to acute exacerbation of COPD. Altered mental status, secondary to toxic metabolic encephalopathy. Suspect acute pseudomonas aeruginosa pneumonia, chest x-ray is showing improvement. Chronic hypoxic respiratory failure on 3 L nasal on outpatient basis. History of mild underlying dementia Coronary arteriosclerosis History of hiatal hernia Ex-smoker X drinker History of pulmonary embolism maintained on long-term anticoagulations therapy/Xarelto. Benign essential hypertension History of TIA Cholelithiasis without acute cholecystitis. Recommendation: Continue BiPAP, alternate with airvo. Continue bronchodilators and steroids Continue cefepime Continue Xarelto Continue Protonix for GI prophylaxis continue Solu-Medrol. Continue Catapres for blood pressure control and continue metoprolol Continue to monitor in the ICU for the next 24 hours Patient is marginal at best. We will continue to follow. Prognosis remains guarded Time with Patient: Less than 30
[2022-12-15 16:33] LABS: Glucose,Whole Blood 178 mg/dL (70-110)
[2022-12-15 21:44] LABS: Glucose,Whole Blood 167 mg/dL (70-110)
[2022-12-16] MEDS: IPRATROPIUM-ALBUTEROL 3 ML NEB INHALATION PRN ×2 (00:26→03:59)
[2022-12-16] MEDS: methylPREDNISolone SOD SUCCI 125 MG/2 ML VIAL IV SCH ×4 (00:42→17:00)
[2022-12-16] MEDS: CEFEPIME 2 GM in SODIUM CHLORIDE 0.9% 100 ML IVPB SCH ×3 (03:56→21:12)
[2022-12-16 05:33] LABS: HCT 37.8 % (39.0-53.0); HGB 12.3 gm/dL (13.0-17.5); MCHC 32.4 g/dL (31.0-37.0); MCV 95.5 fL (80.0-100.0); Mean Platelet Volume 6.7; Platelet Count 301 k/uL (150-450); RBC 3.96 m/uL (4.30-5.90); WBC 18.7 k/uL (3.8-10.6)
[2022-12-16 05:43] LABS: African American GFR (CKD) >90 (>60 ml/min/1.73 sqM); Anion Gap 3 mmol/L; Blood Urea Nitrogen 28 mg/dL (9-20); Calcium 8.5 mg/dL (8.4-10.2); Carbon Dioxide 33 mmol/L (22-30); Chloride 102 mmol/L (98-107); Glucose 157 mg/dL (74-99); Non-African American GFR(CKD) >90 (>60 ml/min/1.73 sqM); Sodium 138 mmol/L (137-145)
[2022-12-16 06:40] LABS: Glucose,Whole Blood 147 mg/dL (70-110)
[2022-12-16] MEDS: INSULIN ASPART (NovoLOG) 100 UNIT/ML VIAL SQ SCH ×4 (07:01→21:14)
[2022-12-16] MEDS: cloNIDine HCL 0.1 MG TAB PO SCH ×3 (07:11→14:44)
[2022-12-16] MEDS: ALPRAZolam 0.5 MG TAB PO PRN ×2 (07:11→21:13)
[2022-12-16] MEDS: PANTOPRAZOLE 40 MG/10 ML VIAL IVP SCH (08:07)
[2022-12-16] MEDS: GABAPENTIN 300 MG CAP PO SCH ×3 (08:08→21:14)
[2022-12-16] MEDS: lisinopriL 20 MG TAB PO SCH (08:08)
[2022-12-16] MEDS: RIVAROXABAN 2.5 MG TABLET PO SCH ×2 (08:08→21:14)
[2022-12-16] MEDS: METOPROLOL TARTRATE 12.5 MG TAB PO SCH ×2 (08:08→21:13)
[2022-12-16] MEDS: amLODIPine 10 MG TAB PO SCH (08:08)
[2022-12-16] MEDS: SODIUM CHLORIDE 0.45% 1,000 ML IV SCH (08:31)
[2022-12-16] MEDS: FORMOTEROL FUMARATE 20 MCG/2 ML NEBU INHALATION SCH ×2 (08:41→20:19)
[2022-12-16] MEDS: IPRATROPIUM-ALBUTEROL 3 ML NEB INHALATION SCH ×4 (08:41→20:19)
[2022-12-16] MEDS: BUDESONIDE 1 MG/2 ML NEBU INHALATION SCH ×2 (08:41→20:19)
[2022-12-16] MEDS ORDERED: cloNIDine HCL 0.1 MG TAB PO PRN (09:11)
--- NOTE | 2022-12-16 11:17 | P.PN ---
Subjective Progress Note Date: 12/16/22 Patient is a 77-year-old male with coronary artery disease, hypertension, dyslipidemia, chronic diastolic congestive heart failure with ejection fraction 60-65%, severe COPD on home O2 at 3 L nasal cannula, pulmonary hypertension, and history of CVA with memory impairment on low-dose Xarelto due to prior pulmonary embolus on who presented via EMS for difficulty in breathing. The presentation to the ER he was in respiratory distress with a respiratory rate of 24, heart rate of 140, and was requiring BiPAP. Chest x-ray demonstrated atypical pneumonia. Laboratory analysis was remarkable for white blood cell count of 16.5, potassium 5.7, BUN 35, creatinine 1.33, troponin 0.025. At that time influenza A/B/RC/COVID-19 testing was negative. Patient was diagnosed with pneumonia resulting in sepsis and COPD exacerbation. He was started on antibiotics, steroids, and arrangements were made for admission to the telemetry unit. Pulmonary and cardiology were consulted. He was continued on broad- spectrum antibiotics and steroids as well as optimize bronchodilators. He was extubated on 12/11. He did require BiPAP after extubation. He was very slow to improve and palliative care was consulted. Imaging: Echocardiogram: Ejection fraction 55-60%, mild pulmonary hypertension Chest x-ray: Scattered lower lung infiltrate Liver ultrasound: Cholelithiasis without evidence of acute cholecystitis Patient seen and examined at bedside. He is awake and alert today. He still is short of breath. He feels very tired and like he is not to make it through this hospital stay. He will discuss this with his daughter. He has already discussed with palliative care. He denies any pain currently. He ate a small amount of his breakfast. Vital signs reviewed General: nontoxic, no distress, appears at stated age Cardiovascular: S1S2 reg, no murmur, positive posterior tibial pulse bilateral, Lungs: Diminished bs b/l, no rhonchi, no rales , no accessory muscle use Abdominal: soft, nontender to palpation, no guarding, no appreciable organomegaly Ext: no gross muscle atrophy, no edema, no contractures Neuro: CN II-XI grossly intact, no focal neuro deficits Psych: Awake, oriented, appropriate affect Assessment: Acute exacerbation of COPD, possible pseudomonal pneumonia -Pseudomonas was cultured and the sputum this is difficult to determine if it is a true infection versus colonization: Patient has been maintained on cefepime Acute on chronic hypoxic hypercapnic respiratory failure, status post extubation Acute metabolic encephalopathy Sepsis due to Pseudomonas Hypertensive urgency Transaminitis Cholelithiasis without any signs of acute cholecystitis Results: Sinus tachycardia Acute kidney injury Chronic: Chronic diastolic heart failure with ejection fraction 55-60% Coronary artery disease Dementia Overactive bladder History of pulmonary embolism and stroke on low-dose Xarelto Hypertension Dyslipidemia GERD Imaging: No new additional imaging available Data Review: Vital signs reviewed and temperature 90.8, pulse 118, respirations 19, blood pressure 204/97, O2 sat 94% on high flow at 35% Lab work remarkable for white blood cell count 18.7 (up from 14.2), hemoglobin 12.3 which is stable from yesterday, BUN 28, carbon dioxide 33 Plan: -Continue with DuoNeb 4 times daily scheduled and every 4 hours as needed, budesonide 1 mg inhalation twice daily, Formoterol 20 g inhalation twice daily -Continue with Norvasc 10 mg by mouth daily started on 12/13, Decreased Catapres to 0.1 mg twice daily hours (this is not a good longterm option) and increase lisinopril to 40 mg, metoprolol 12.5 mg twice daily, add back prn catapress. -Continue with methylprednisolone 60 IV every 6 -Xarelto 2.5 mg twice daily -For treatment of pneumonia patient has completed a course of 3 days of Zithromax, he received 1 dose of Rocephin, continue with cefepime 2 g every 8 hours day #8 -Pulmonary note reviewed: Continue with airvo and BiPAP, continue with cefepime -Case discussed with palliative care nurse practitioner. Patient and daughter yesterday wanted a few more days before considering hospice. DVT prophylaxis: Xarelto Discussed with: Nursing Anticipated discharge date: Pending Clinical course Anticipated discharge place: Pending Clinical Course This dictation was prepared using [employer] voice recognition software. Though every attempt is made to correct errors during during dictation some may still exist. Objective - Vital Signs Vital signs: Vital Signs Temp 98 F 12/16/22 08:00 Pulse 81 12/16/22 10:00 Resp 22 12/16/22 10:00 BP 137/63 12/16/22 10:00 Pulse Ox 95 12/16/22 10:00 FiO2 35 12/16/22 09:29 Intake & Output 12/15/22 12/16/22 12/16/22 18:59 06:59 18:59 Intake Total 1830 580 190 Output Total 1350 1250 575 Balance 480 -670 -385 Weight 73.1 kg Intake: IV 530 580 190 Cefepime 2 gm In Sodium 100 100 Chloride 0.9% 100 ml @ 25 mls/hr IVPB Q8H [facility] Rx#: [id number] Sodium Chloride 0.9% 1, 430 480 190 000 ml @ 40 mls/hr IV . Q24H A[facility] Rx#:[id number] Oral 900 Tube Feeding 400 Output: Urine 1350 1250 575 Other: Voiding Method Indwelling Catheter Indwelling Catheter Indwelling Catheter # Bowel Movements 1 1 - Labs CBC & Chem 7: 12/16/22 05:20 12/16/22 05:20 Labs: Abnormal Lab Results - Last 24 Hours (Table) 12/15/22 12/15/22 12/15/22 Range/Units 11:30 16:32 21:42 WBC (3.8-10.6) k/uL RBC (4.30-5.90) m/uL Hgb (13.0-17.5) gm/dL Hct (39.0-53.0) % Carbon Dioxide (22-30) mmol/L BUN (9-20) mg/dL Glucose (74-99) mg/dL POC Glucose (mg/dL) 122 H 178 H 167 H (70-110) mg/dL 12/16/22 12/16/22 12/16/22 Range/Units 05:20 05:20 06:39 WBC 18.7 H (3.8-10.6) k/uL RBC 3.96 L (4.30-5.90) m/uL Hgb 12.3 L (13.0-17.5) gm/dL Hct 37.8 L (39.0-53.0) % Carbon Dioxide 33 H (22-30) mmol/L BUN 28 H (9-20) mg/dL Glucose 157 H (74-99) mg/dL POC Glucose (mg/dL) 147 H (70-110) mg/dL Microbiology - Last 24 Hours (Table) 12/09/22 09:05 Blood Culture - Final Blood 12/09/22 09:20 Blood Culture - Final Blood
[2022-12-16 11:28] LABS: Glucose,Whole Blood 158 mg/dL (70-110)
--- NOTE | 2022-12-16 12:28 | P.PN ---
Subjective Progress Note Date: 12/16/22 The patient is a 77-year-old male with a past medical history of CAD, hypertension, hyperlipidemia, chronic diastolic congestive heart failure with an EF of 60-65%, severe COPD, FEV1 49% of predicted, on 3 L home O2, pulmonary hypertension, CVA with memory impairment, PE on Xarelto, and [place]. He presented to the emergency department on 12/09/22 with complaints of worsening shortness of breath. Upon arrival to our facility patient was found to be in respiratory distress with tachypneic labored respirations at 24 breaths per minute, tachycardic with heart rate 140s, hypertensive a blood pressure 162/105, temp 97.9F and hypoxic requiring placement on BiPAP. Patient states history of pneumonia and reported he was last treated outpatient for pneumonia back in August and reports that he did recover, but has since not quite been back to his baseline. Patient denied having any headache, lightheadedness, dizziness, chest pain, palpitations, or experiencing any numbness/tingling/weakness/swelling in his extremities. he underwent full evaluation in the emergency department. CXR showed scattered lung field infiltrates concerning for atypical pneumonia. WBC count of 16.5 with left shift with neutrophils of 13.7. BMP revealing hyperkalemia with potassium of 5.7, and an acute kidney injury with BUN 35, creatinine 1.33, and GFR of 51 with baseline creatinine of 0.9. Liver profile revealing transaminitis with acutely elevated LFTs with AST of 61, ALT of 84, and alkaline phosphatase of 131. Troponin 0.025 and pro-BMP of 102. Influenza A, influenza B, RSV, and Covid PCR were completed all with negative findings. The patient was seen in the emergency department by the net manager. At that time the patient was unresponsive and was intubated. He was started on Rocephin, Zithromax, bronchodilators, and IV Solu-Medrol. The patient was able to be extubated on 12/11/22 and was placed on BiPAP. Sputum cultures grew Pseudomonas and patient was given cefepime. The patient was not able to tolerate Airvo for very long and seemed to be almost BiPAP dependent. 12/15 Spoke with the patient's daughter via telephone this morning. Information provided regarding palliative care and hospice philosophies and services. The patient's daughter recognizes that his breathing has been getting progressively worse. Education provided regarding COPD and CHF progression. She realizes that he is having more frequent exacerbations and pneumonia requiring hospitalizations. Rica and the patient have had recent conversations regarding his wishes. He has told her that he is "tired" and "done". He wants to be put in the ground next to his parent. He told her he did not want to live being attached to a machine like the BiPAP, and not able to be active or somewhat independent. There hopes initially where that his breathing would improve significantly enough to go to [facility] for rehab. However, he seems to have lost hope because his lungs are not getting much better. Rica thinks that her father might be open to a hospice informational visit, but would like to give him more time to see if things improve first. Went to the patient's bedside. He is on Airvo today, but still has an increased work of breathing. He has conversational dyspnea and is not able to talk for very long. I told him about my conversation with Rica and our plans moving forward. He was in agreement. Objective - Vital Signs Vital signs: Vital Signs Temp 98 F 12/16/22 08:00 Pulse 81 12/16/22 10:00 Resp 22 12/16/22 10:00 BP 137/63 12/16/22 10:00 Pulse Ox 95 12/16/22 10:00 FiO2 35 12/16/22 09:29 Intake & Output 12/15/22 12/16/22 12/16/22 18:59 06:59 18:59 Intake Total 1830 580 190 Output Total 1350 1250 575 Balance 480 -670 -385 Weight 73.1 kg Intake: IV 530 580 190 Cefepime 2 gm In Sodium 100 100 Chloride 0.9% 100 ml @ 25 mls/hr IVPB Q8H ABDOULAYE Rx#: [id number] Sodium Chloride 0.9% 1, 430 480 190 000 ml @ 40 mls/hr IV . Q24H ABDOULAYE Rx#:[id number] Oral 900 Tube Feeding 400 Output: Urine 1350 1250 575 Other: Voiding Method Indwelling Catheter Indwelling Catheter Indwelling Catheter # Bowel Movements 1 1 - Exam General: Well developed, well nourished. Chronically ill appearing HEENT: Head is atraumatic, normocephalic. Sclera are clear. CV: Heart regular in rate and rhythm Lungs: Increased work of breathing with accessory muscle use and conversational dyspnea, on Airvo 35% FiO2, 45L. Abdomen/GI: Soft, nondistended, nontender. : Monet catheter draining clear yellow urine Musculoskeletal/ Extremities: No contractures or gross atrophy. + generalized weakness Skin: Warm and dry Neurologic: Awake, alert and oriented times 3. CN II-XII grossly intact. Psychiatric: Normal affect - Labs CBC & Chem 7: 12/16/22 05:20 12/16/22 05:20 Labs: Abnormal Lab Results - Last 24 Hours (Table) 12/15/22 12/15/22 12/16/22 Range/Units 16:32 21:42 05:20 WBC 18.7 H (3.8-10.6) k/uL RBC 3.96 L (4.30-5.90) m/uL Hgb 12.3 L (13.0-17.5) gm/dL Hct 37.8 L (39.0-53.0) % Carbon Dioxide (22-30) mmol/L BUN (9-20) mg/dL Glucose (74-99) mg/dL POC Glucose (mg/dL) 178 H 167 H (70-110) mg/dL 12/16/22 12/16/22 12/16/22 Range/Units 05:20 06:39 11:15 WBC (3.8-10.6) k/uL RBC (4.30-5.90) m/uL Hgb (13.0-17.5) gm/dL Hct (39.0-53.0) % Carbon Dioxide 33 H (22-30) mmol/L BUN 28 H (9-20) mg/dL Glucose 157 H (74-99) mg/dL POC Glucose (mg/dL) 147 H 158 H (70-110) mg/dL Microbiology - Last 24 Hours (Table) 12/09/22 09:05 Blood Culture - Final Blood 12/09/22 09:20 Blood Culture - Final Blood Assessment and Plan Assessment: Symptoms * Pain - 0/10, continue Tylenol and Neurontin * Fatigue - low energy, + generalized weakness and fatigue, continue PT * SOB - yes, currently on Airvo, continue DuoNeb, Pulmicort, cefepime, Perforomist, and Solu-Medrol * Insomnia - no * N/V - no * Anxiety - yes, continue Xanax * Depression - occasional * Confusion - no * Agitation - no * Hallucinations - no * Appetite/weight loss - decreased appetite, BMI 24.1, continue regular diet * Dysphagia - yes, currently on a dysphagia level 3, chopped diet * Constipation - No, LBM 12/16 * Incontinence - No, Monet catheter present * Itch - No * Cough - Yes, congested cough Plan: Summary/Goals - The patient is resting in bed. He is on Airvo still and making minimal progress with titration of FiO2. He continue to be short of breath and has conversational dyspnea. The patient has voiced feeling like he is "tired" and "done". He does not feel as if he is getting better. He understands the trajectory of his COPD which is even more complicated with pneumonia. He would like to breath better and get stronger, but does not believe that he is capable of that. He stated that he would like to live a little longer. We discussed the options of living longer in rehab and continued trips back and forth to the hospital, or to live for a little longer at home with his daughter, to be made comfortable and let nature take it's course. He stated he wants to go back home with his daughter. Spoke with Rica over the phone. She stated she was not feeling good today and was not going to come up and visit. We discussed her father's wishes again. She thinks bringing him back to her house with hospice might be the best solution. Hospice was consulted for an informational visit. Recommendations - rehab with palliative care vs. hospice Advanced Directives - None of file Code Status - DNR Thank you for this consultation Jo Ann Rubio [facility] Palliative Care [place]ink [id number] Email: [email or web address]
[2022-12-16] MEDS: ACETAMINOPHEN TAB 325 MG TAB PO PRN ×3 (13:27→21:13)
--- NOTE | 2022-12-16 14:49 | P.PN ---
Subjective Progress Note Date: 12/16/22 Principal diagnosis: Acute hypoxic and hypercapnic respiratory failure, multifactorial secondary to pseudomonal pneumonia and COPD exacerbation Visit 76-year-old male patient presented to [facility] department because of worsening shortness of breath. The patient is known to have severe COPD with an FEV1 of 49% of predicted at baseline. He has underlying dementia, hypertension and hyperlipidemia and previous history of pulmonary embolism and he has been maintained on long-term xarelto . I was unable to interview the patient. As by the time I arrived, he was having agonal breathing while being on a BiPAP. I came to find other the patient was already being supported with BiPAP since he came in his breathing was progressively getting worse. He was unable to provide any history. He was unresponsive, and at that point, I intubated this patient in the emergency department. Currently is intubated on a mechanical ventilator. Is on assist-control at the rate of 26, tidal volume of 400, FiO2 of 100% with a PEEP of 5. Most recent blood pressure is 159/90. He is on propofol running at 40 mcg/kg/m. Intubation process was done without any complications. Chest x-ray is consistent with you. Post intubation chest x-rays pending. Meanwhile, his blood work from today showed a basic of 16.9 with a hemoglobin of 15 and a platelet count of 336. Normal coagulation profile. BUN is at 35 with a creatinine of 1.38. Sodium is 136. Potassium level is at 5.7. LFTs are s lightly elevated with an AST of 61, ALT of 84, alkaline phosphatase of 131, proBNP is nonelevated at 102 and the patient has a negative Covid 19 testing, negative influenza and negative RSV. Blood gases pending. Post intubation chest x-rays pending. He has not required any pressors. He is afebrile. He was started on Rocephin and Zithromax and is also on IV Solu-Medrol. No reported chest pain. EKG showed no ischemic changes. It is consistent with sinus tachycardia. I am seeing this patient in follow-up 12/10/2022 in the intensive care unit. He remains intubated on mechanical ventilator with settings of assist control, respiratory rate 26, tidal volume 450, FiO2 40%, PEEP of 5. ABGs done on the settings show PO2 130, pCO2 of 40, pH of 7.36. Patient's FiO2 is dropped 35%. Chest x-ray from this morning shows endotracheal tube approximately 2 cm above the armando, improved bibasilar infiltrates, small right pleural effusion, and chronic COPD changes. Sputum culture is pending. Patient is covered on a combination of Zithromax, cefepime, and vancomycin. Patient has been afebrile overnight. Procalcitonin level was only mildly elevated at 0.17. Patient's CBC shows a WBC count down to 13.7, hemoglobin 12.6, hematocrit 39.3, platelets 249,000. BMP from this morning shows a sodium 133, potassium 5.2, chloride 106, serum CO2 24, BUN of 27, creatinine 1.01, glucose 153. Patient is currently sedated on propofol 20 mics per kilogram per minute. He does wake up and follow commands to verbal stimulation. So has normal saline infusing at 130 ML's per hour. He has not required any vasopressors. Urine output in the order of 40-50 mL an hour. He has not been started on tube feeds yet. Peak airway pressures are 35 and plateau pressure 17. He remains on bronchodilators, IV Solu-Medrol. Patient is mildly elevated, and a liver ultrasound is pending. Vital signs are stable at this time. On today's evaluation of 12/11/2022, I'm seeing the patient for a follow-up. The patient remains intubated on a mechanical ventilator. This morning he is taken off the sedation and the patient is awake and alert and following simple commands. He remains on mechanical ventilator for now on assist control mode at the rate of 26, tidal volume of 450, FiO2 of 30% with a PEEP of 5. Blood gases from today shows a pH of 7.33 with a pCO2 of 43 and pO2 of 82 and this was an FiO2 of 30%. Chest x-ray from today shows emphysema without any acute abnormalities. The patient remains on a combination of bronchodilators and steroids. The sputum sample was positive for pseudomonas aeruginosa and the patient is currently on IV cefepime and Zithromax has been discontinued. He remains on bronchodilators. He remains on steroids. He is also on long-term and coagulation with Xarelto 2.5 mg by mouth twice a day. He is also on normal saline at rate of 40 mL an hour. His cardiac rhythm is sinus. Urine output is adequate. The overall fluid balance has been +1.6 L over the past 24 hours. On 12/12/2022, the patient was extubated yesterday and the patient is currently on BiPAP at a pressure of 12/5 cm of water. He is currently on FiO2 of 40% in his oxygenation is adequate with a saturation of 90%. Is able to generate approximately 800 mL on his BiPAP machine in terms of his tidal volume. His minute ventilation is around 13 L. He remains bronchospastic and wheezy. His breathing is nonlabored on the BiPAP. Once switched to nasal cannula, his oxygen saturations remains unchanged, however his work of breathing gets worse. As such, we'll try to keep him on a BiPAP for most of the day. He is hemodynamically stable. Cardiac rhythm is sinus. He is awake and alert and is also communicating. Noted. Pseudomonas in his sputum and the patient is currently on IV cefepime. He remains on bronchodilators. He remains on steroids. IV fluids are running in the form of normal saline at rate of 30 mL an hour. White cell count is at 23.8 with a hemoglobin 11.5, BUN is at 33 with a creatinine of 0.9 and sodium level is 143. Blood pressure is slightly elevated and the patient was given IV Vasotec. The chest x-ray from today shows hyperinflation, no acute pulmonary infiltrates. 12/13/2022, the patient was transitioned again to BiPAP. After being on high flow oxygen overnight at 45 L with an FiO2 of 40%, the patient was placed again on BiPAP this morning at a pressures of 12/5 with an FiO2 of 35%. Oxygenation remains stable at 97%. His generating adequate tidal volume. His minute ventilation is also adequate at 6 L/m nasal cannula. No chest x-rays available from today. Most recent x-rays were essentially clear. History recovering from acute COPD exacerbation. He is post ventilator dependent respiratory failure and he was extubated approximately 48 hours ago. He is tolerating the BiPAP while. Note that he is also Pseudomonas in his sputum and the patient is being treated accordingly with IV cefepime. Remains on bronchodilators and steroids. The white cell count is down to 16.3 with a hemoglobin of 12 and a platelet count of 283. BUN is 32 with a creatinine of 0.9 and his sodium level is at 141. Also, the patient is on DuoNeb nebulized treatments [id number], IV Solu-Medrol, IV cefepime, and he is also on long-term anticoagulation for now. His cough is still congested. We'll proceed with adequate pulmonary toileting. His blood pressure was also elevated. He was started on clonidine and this will be continued at a dose of 0.2 mg every 8 hours on a regular basis. He is also receiving Vasotec 2.5 mg IV every 6 hours on a when necessary basis. He was not taking any form of antihypertensive medications on outpatient basis. He was maintained on Lopressor which is still on board at 12.5 mg by mouth twice a day. Reevaluated today on 12/14/2022, patient remains in the ICU, remains on BiPAP w ith IPAP of 12 and EPAP of 6 and FiO2 35%. Receiving IV fluid in the form of 0.9 normal saline at 50 mL per hour patient is also receiving cefepime for his pseudomonal infection/pneumonia. Patient was on mechanical ventilation from 12/09 until 12/11. Patient remains marginal at best, seems to be almost BiPAP dependent. Does not tolerate going on nasal cannula, or airvo. Seems to be more comfortable with BiPAP, chest x-ray showed no evidence of active disease, he has mostly COPD changes. WBC count remains elevated at 17.0, nonetheless slightly better than it was a few days ago 23.8. Basic metabolic profile is normal, renal profile is normal patient remains on methylprednisolone 60 mg IV push every 6 hours, he is also on Xarelto 2.5 twice a day, patient is receiving cefepime for his pseudomonal infection, and remains on bronchodilators again patient is marginal at best. Reevaluated today on 12/15/2022, patient is resting comfortably on airvo at 40% FiO2 on 50 L flow, patient does not seem to be in distress, intermittently has been on BiPAP 12/6/35%. Patient remains marginal at best. Still receiving antibiotics for his pseudomonas aeruginosa pneumonia, WBC count is 14.2 hemoglo bin is 11.9 electrolytes are normal basic metabolic profile is normal renal profile is normal, chest x-ray continues to show COPD, patchy medial right basilar opacity consistent with pneumonia Reevaluated today on , patient remains on airvo at 50%, 45 L flow, and at times he was on BiPAP 12//35%. Patient is basically improving, but remains marginal at best. Gets short of breath with any activity. He is on IV fluid at 60 mL/h 0.9 normal saline. Patient seems to be comfortable, however he seems to be extremely frail, and chronically ill. I am considering sending the patient to the floor today. In the meantime the patient is currently being considered for possible palliative care by the admitting physician and I strongly believe that this is very appropriate Objective - Vital Signs Vital signs: Vital Signs Temp 98 F 12/16/22 08:00 Pulse 96 12/16/22 12:39 Resp 22 12/16/22 10:00 BP 137/63 12/16/22 10:00 Pulse Ox 95 12/16/22 10:00 FiO2 35 12/16/22 12:39 Intake & Output 12/15/22 12/16/22 12/16/22 18:59 06:59 18:59 Intake Total 1830 580 190 Output Total 1350 1250 575 Balance 480 -670 -385 Weight 73.1 kg Intake: IV 530 580 190 Cefepime 2 gm In Sodium 100 100 Chloride 0.9% 100 ml @ 25 mls/hr IVPB Q8H ABDOULAYE Rx#: [id number] Sodium Chloride 0.9% 1, 430 480 190 000 ml @ 40 mls/hr IV . Q24H ABDOULAYE Rx#:[id number] Oral 900 Tube Feeding 400 Output: Urine 1350 1250 575 Other: Voiding Method Indwelling Catheter Indwelling Catheter Indwelling Catheter # Bowel Movements 1 1 - Exam Physical Exam: Revealed 77-year-old white male on airvo at 45 L, 50% FiO2 Head: Atraumatic normocephalic. HEENT:[Neck is supple.] [No neck masses.] [No thyromegaly.] [No JVD.] Chest: [Diminished breath sound bilaterally, no rhonchi and no wheezes. Cardiac Exam: [Normal S1 and S2, no S3 gallop, no murmur.] Abdomen: [Soft, nontender, no megaly, no rebound, no guarding, normal bowel sounds.] Extremities: [No clubbing, no edema, no cyanosis.] Neurological Exam: [No focal neurologic deficit.] Alert oriented 3, but seems to be a bit slow. Psychiatric: Normal mood, flat affect, normal mental status examination. Skin: No rashes - Labs CBC & Chem 7: 12/16/22 05:20 12/16/22 05:20 Labs: Abnormal Lab Results - Last 24 Hours (Table) 12/15/22 12/15/22 12/16/22 Range/Units 16:32 21:42 05:20 WBC 18.7 H (3.8-10.6) k/uL RBC 3.96 L (4.30-5.90) m/uL Hgb 12.3 L (13.0-17.5) gm/dL Hct 37.8 L (39.0-53.0) % Carbon Dioxide (22-30) mmol/L BUN (9-20) mg/dL Glucose (74-99) mg/dL POC Glucose (mg/dL) 178 H 167 H (70-110) mg/dL 12/16/22 12/16/22 12/16/22 Range/Units 05:20 06:39 11:15 WBC (3.8-10.6) k/uL RBC (4.30-5.90) m/uL Hgb (13.0-17.5) gm/dL Hct (39.0-53.0) % Carbon Dioxide 33 H (22-30) mmol/L BUN 28 H (9-20) mg/dL Glucose 157 H (74-99) mg/dL POC Glucose (mg/dL) 147 H 158 H (70-110) mg/dL Assessment and Plan Assessment: Impression: Acute on chronic hypoxic and hypercapnic respiratory failure secondary to acute exacerbation of COPD. Altered mental status, secondary to toxic metabolic encephalopathy. Suspect acute pseudomonas aeruginosa pneumonia, chest x-ray is showing improvement. Chronic hypoxic respiratory failure on 3 L nasal on outpatient basis. History of mild underlying dementia Coronary arteriosclerosis History of hiatal hernia Ex-smoker X drinker History of pulmonary embolism maintained on long-term anticoagulations therapy/Xarelto. Benign essential hypertension History of TIA Cholelithiasis without acute cholecystitis. Recommendation: Continue airvo. Continue bronchodilators and steroids Continue cefepime Continue Xarelto Continue Protonix for GI prophylaxis continue Solu-Medrol. Continue Catapres for blood pressure control and continue metoprolol Transfer patient to a regular medical floor Agree with consideration of palliative care on this patient. We will continue to follow. Prognosis remains guarded Time with Patient: Less than 30
[2022-12-16 16:49] LABS: Glucose,Whole Blood 221 mg/dL (70-110)
[2022-12-16 21:08] LABS: Glucose,Whole Blood 142 mg/dL (70-110)
[2022-12-17] MEDS: IPRATROPIUM-ALBUTEROL 3 ML NEB INHALATION PRN ×2 (00:43→04:22)
[2022-12-17] MEDS: methylPREDNISolone SOD SUCCI 125 MG/2 ML VIAL IV SCH ×4 (00:47→16:52)
[2022-12-17] MEDS: CEFEPIME 2 GM in SODIUM CHLORIDE 0.9% 100 ML IVPB SCH ×3 (04:50→21:35)
[2022-12-17 06:38] LABS: Glucose,Whole Blood 114 mg/dL (70-110)
[2022-12-17] MEDS: INSULIN ASPART (NovoLOG) 100 UNIT/ML VIAL SQ SCH ×4 (06:45→21:27)
[2022-12-17] MEDS: SODIUM CHLORIDE 0.45% 1,000 ML IV SCH (07:10)
[2022-12-17] MEDS: METOPROLOL TARTRATE 12.5 MG TAB PO SCH (08:26)
[2022-12-17] MEDS: PANTOPRAZOLE 40 MG/10 ML VIAL IVP SCH (08:26)
[2022-12-17] MEDS: ACETAMINOPHEN TAB 325 MG TAB PO PRN ×2 (08:26→14:18)
[2022-12-17] MEDS: GABAPENTIN 300 MG CAP PO SCH ×3 (08:26→21:36)
[2022-12-17] MEDS: lisinopriL 20 MG TAB PO SCH (08:26)
[2022-12-17] MEDS: cloNIDine HCL 0.1 MG TAB PO SCH ×2 (08:26→21:36)
[2022-12-17 08:33] LABS: Basophils % (A) 0 %; Eosinophils % (A) 0 %; HCT 45.8 % (39.0-53.0); Lymphocytes # (A) 0.4 k/uL (1.0-4.8); Lymphocytes % (A) 2 %; MCH 29.7 pg (25.0-35.0); MCHC 30.6 g/dL (31.0-37.0); MCV 97.1 fL (80.0-100.0); Mean Platelet Volume 6.7; Monocytes # (A) 0.6 k/uL (0-1.0); Monocytes % (A) 3 %; Neutrophils # (A) 21.8 k/uL (1.3-7.7); Neutrophils % (A) 95 %; Platelet Count 393 k/uL (150-450); RBC 4.71 m/uL (4.30-5.90); WBC 22.9 k/uL (3.8-10.6)
[2022-12-17] MEDS: IPRATROPIUM-ALBUTEROL 3 ML NEB INHALATION SCH ×4 (08:40→21:12)
[2022-12-17] MEDS: FORMOTEROL FUMARATE 20 MCG/2 ML NEBU INHALATION SCH ×2 (08:40→21:12)
[2022-12-17] MEDS: BUDESONIDE 1 MG/2 ML NEBU INHALATION SCH ×2 (08:40→21:12)
[2022-12-17 09:11] LABS: African American GFR (CKD) >90 (>60 ml/min/1.73 sqM); Anion Gap 5 mmol/L; Blood Urea Nitrogen 24 mg/dL (9-20); Calcium 8.9 mg/dL (8.4-10.2); Carbon Dioxide 35 mmol/L (22-30); Chloride 101 mmol/L (98-107); Glucose 130 mg/dL (74-99); Non-African American GFR(CKD) >90 (>60 ml/min/1.73 sqM); Potassium 3.8 mmol/L (3.5-5.1); Sodium 141 mmol/L (137-145)
[2022-12-17] MEDS ORDERED: METOPROLOL TARTRATE 12.5 MG TAB PO ONE (09:50)
--- NOTE | 2022-12-17 10:31 | P.PN ---
Subjective Progress Note Date: 12/17/22 Hospital Course: Patient is a 77-year-old male with coronary artery disease, hypertension, dyslipidemia, chronic diastolic congestive heart failure with ejection fraction 60-65%, severe COPD on home O2 at 3 L nasal cannula, pulmonary hypertension, and history of CVA with memory impairment on low-dose Xarelto due to prior pulmonary embolus on who presented via EMS for difficulty in breathing. The presentation to the ER he was in respiratory distress with a respiratory rate of 24, heart rate of 140, and was requiring BiPAP. Chest x-ray demonstrated atypical pneumonia. Laboratory analysis was remarkable for white blood cell count of 16.5, potassium 5.7, BUN 35, creatinine 1.33, troponin 0.025. At that time influenza A/B/RC/COVID-19 testing was negative. Patient was diagnosed with pneumonia resulting in sepsis and COPD exacerbation. He was started on antibiotics, steroids, and arrangements were made for admission to the telemetry unit. Pulmonary and cardiology were consulted. He was continued on broad- spectrum antibiotics and steroids as well as optimize bronchodilators. He was extubated on 12/11. He did require BiPAP after extubation. He was very slow to improve and palliative care was consulted. Currently on high flow nasal cannula Imaging: Echocardiogram: Ejection fraction 55-60%, mild pulmonary hypertension Chest x-ray: Scattered lower lung infiltrate Liver ultrasound: Cholelithiasis without evidence of acute cholecystitis Subjective: Patient seen and examined at bedside. No acute events overnight. He denies any significant chest pain, shortness of breath, abdominal pain, nausea, vomiting, urinary or bowel complaints. Currently has a catheter in place. Pertinent positives and negatives as discussed above, a complete review of systems was performed and all other systems are negative. Vitals Signs Reviewed. General: nontoxic, no distress, appears at stated age Cardiovascular: S1S2 reg, no murmur, positive posterior tibial pulse bilateral, Lungs: Diminished bs b/l, no rhonchi, no rales , no accessory muscle use, high flow nasal Abdominal: soft, nontender to palpation, no guarding, no appreciable organomegaly Ext: no gross muscle atrophy, no edema, no contractures Neuro: CN II-XI grossly intact, no focal neuro deficits Psych: Awake, oriented, appropriate affect Data Reviewed Today: Pertinent Labs: White count 22.9, hemoglobin 14, sodium 141, creatinine 0.71, blood sugars range between 114-221 Assessment and Plan: Patient remains critically ill, currently on high flow nasal cannula, in the medical ICU. Pending further goals of care discussion, possible hospice care. Prognosis guarded. Acute exacerbation of COPD, possible pseudomonal pneumonia -Pseudomonas was cultured and the sputum this is difficult to determine if it is a true infection versus colonization: Patient has been maintained on cefepime Acute on chronic hypoxic hypercapnic respiratory failure, status post extubation Acute metabolic encephalopathy, improved Sepsis due to Pseudomonas Hypertensive urgency Transaminitis Cholelithiasis without any signs of acute cholecystitis -Continue with DuoNeb 4 times daily scheduled and every 4 hours as needed, budesonide 1 mg inhalation twice daily, Formoterol 20 g inhalation twice daily -Continue with Norvasc 10 mg by mouth daily, Catapres to 0.1 mg twice daily hours, and lisinopril to 40 mg, metoprolol 25 mg twice daily, on prn catapress. -Continue with methylprednisolone 60 IV every 6 -Xarelto 2.5 mg twice daily -For treatment of pneumonia patient has completed a course of 3 days of Zithromax, he received 1 dose of Rocephin, continue with cefepime 2 g every 8 hours day #9 -Leukocytosis is worsening -Pulmonary following, patient currently on high flow nasal -Palliative care following, hospice was consulted Resolved: Sinus tachycardia Acute kidney injury Chronic: Chronic diastolic heart failure with ejection fraction 55-60% Coronary artery disease Dementia Overactive bladder History of pulmonary embolism and stroke on low-dose Xarelto Hypertension Dyslipidemia GERD DVT ppx: Xarelto Code status: DNR Anticipated discharge place: Pending clinical course Anticipated discharge time: Pending clinical course Objective - Vital Signs Vital signs: Vital Signs Temp 98.0 F 12/17/22 08:00 Pulse 78 12/17/22 08:52 Resp 22 12/17/22 08:00 BP 172/84 12/17/22 08:00 Pulse Ox 92 L 12/17/22 08:00 FiO2 60 12/17/22 08:00 Intake & Output 12/16/22 12/17/22 12/17/22 18:59 06:59 18:59 Intake Total 240 680 Output Total 1225 560 Balance -985 120 Weight 73.4 kg Intake: IV 240 680 Cefepime 2 gm In Sodium 200 Chloride 0.9% 100 ml @ 25 mls/hr IVPB Q8H [facility] Rx#: [id number] Sodium Chloride 0.9% 1, 240 480 000 ml @ 40 mls/hr IV . Q24H [facility] Rx#:[id number] Output: Urine 1225 560 Other: Voiding Method Indwelling Catheter Indwelling Catheter Indwelling Catheter # Bowel Movements 1 - Labs CBC & Chem 7: 12/17/22 08:12 12/17/22 08:12 Labs: Abnormal Lab Results - Last 24 Hours (Table) 12/16/22 12/16/22 12/16/22 Range/Units 11:15 16:47 21:07 WBC (3.8-10.6) k/uL MCHC (31.0-37.0) g/dL Neutrophils # (1.3-7.7) k/uL Lymphocytes # (1.0-4.8) k/uL Carbon Dioxide (22-30) mmol/L BUN (9-20) mg/dL Glucose (74-99) mg/dL POC Glucose (mg/dL) 158 H 221 H 142 H (70-110) mg/dL 12/17/22 12/17/22 12/17/22 Range/Units 06:37 08:12 08:12 WBC 22.9 H (3.8-10.6) k/uL MCHC 30.6 L (31.0-37.0) g/dL Neutrophils # 21.8 H (1.3-7.7) k/uL Lymphocytes # 0.4 L (1.0-4.8) k/uL Carbon Dioxide 35 H (22-30) mmol/L BUN 24 H (9-20) mg/dL Glucose 130 H (74-99) mg/dL POC Glucose (mg/dL) 114 H (70-110) mg/dL
[2022-12-17] MEDS: amLODIPine 10 MG TAB PO SCH (10:55)
[2022-12-17] MEDS: RIVAROXABAN 2.5 MG TABLET PO SCH ×2 (10:55→21:35)
[2022-12-17 11:02] LABS: Glucose,Whole Blood 141 mg/dL (70-110)
--- NOTE | 2022-12-17 12:57 | P.PN ---
Subjective Progress Note Date: 12/17/22 Principal diagnosis: Acute hypoxic and hypercapnic respiratory failure, multifactorial secondary to pseudomonal pneumonia and COPD exacerbation Visit 76-year-old male patient presented to [facility] department because of worsening shortness of breath. The patient is known to have severe COPD with an FEV1 of 49% of predicted at baseline. He has underlying dementia, hypertension and hyperlipidemia and previous history of pulmonary embolism and he has been maintained on long-term xarelto . I was unable to interview the patient. As by the time I arrived, he was having agonal breathing while being on a BiPAP. I came to find other the patient was already being supported with BiPAP since he came in his breathing was progressively getting worse. He was unable to provide any history. He was unresponsive, and at that point, I intubated this patient in the emergency department. Currently is intubated on a mechanical ventilator. Is on assist-control at the rate of 26, tidal volume of 400, FiO2 of 100% with a PEEP of 5. Most recent blood pressure is 159/90. He is on propofol running at 40 mcg/kg/m. Intubation process was done without any complications. Chest x-ray is consistent with you. Post intubation chest x-rays pending. Meanwhile, his blood work from today showed a basic of 16.9 with a hemoglobin of 15 and a platelet count of 336. Normal coagulation profile. BUN is at 35 with a creatinine of 1.38. Sodium is 136. Potassium level is at 5.7. LFTs are s lightly elevated with an AST of 61, ALT of 84, alkaline phosphatase of 131, proBNP is nonelevated at 102 and the patient has a negative Covid 19 testing, negative influenza and negative RSV. Blood gases pending. Post intubation chest x-rays pending. He has not required any pressors. He is afebrile. He was started on Rocephin and Zithromax and is also on IV Solu-Medrol. No reported chest pain. EKG showed no ischemic changes. It is consistent with sinus tachycardia. I am seeing this patient in follow-up 12/10/2022 in the intensive care unit. He remains intubated on mechanical ventilator with settings of assist control, respiratory rate 26, tidal volume 450, FiO2 40%, PEEP of 5. ABGs done on the settings show PO2 130, pCO2 of 40, pH of 7.36. Patient's FiO2 is dropped 35%. Chest x-ray from this morning shows endotracheal tube approximately 2 cm above the armando, improved bibasilar infiltrates, small right pleural effusion, and chronic COPD changes. Sputum culture is pending. Patient is covered on a combination of Zithromax, cefepime, and vancomycin. Patient has been afebrile overnight. Procalcitonin level was only mildly elevated at 0.17. Patient's CBC shows a WBC count down to 13.7, hemoglobin 12.6, hematocrit 39.3, platelets 249,000. BMP from this morning shows a sodium 133, potassium 5.2, chloride 106, serum CO2 24, BUN of 27, creatinine 1.01, glucose 153. Patient is currently sedated on propofol 20 mics per kilogram per minute. He does wake up and follow commands to verbal stimulation. So has normal saline infusing at 130 ML's per hour. He has not required any vasopressors. Urine output in the order of 40-50 mL an hour. He has not been started on tube feeds yet. Peak airway pressures are 35 and plateau pressure 17. He remains on bronchodilators, IV Solu-Medrol. Patient is mildly elevated, and a liver ultrasound is pending. Vital signs are stable at this time. On today's evaluation of 12/11/2022, I'm seeing the patient for a follow-up. The patient remains intubated on a mechanical ventilator. This morning he is taken off the sedation and the patient is awake and alert and following simple commands. He remains on mechanical ventilator for now on assist control mode at the rate of 26, tidal volume of 450, FiO2 of 30% with a PEEP of 5. Blood gases from today shows a pH of 7.33 with a pCO2 of 43 and pO2 of 82 and this was an FiO2 of 30%. Chest x-ray from today shows emphysema without any acute abnormalities. The patient remains on a combination of bronchodilators and steroids. The sputum sample was positive for pseudomonas aeruginosa and the patient is currently on IV cefepime and Zithromax has been discontinued. He remains on bronchodilators. He remains on steroids. He is also on long-term and coagulation with Xarelto 2.5 mg by mouth twice a day. He is also on normal saline at rate of 40 mL an hour. His cardiac rhythm is sinus. Urine output is adequate. The overall fluid balance has been +1.6 L over the past 24 hours. On 12/12/2022, the patient was extubated yesterday and the patient is currently on BiPAP at a pressure of 12/5 cm of water. He is currently on FiO2 of 40% in his oxygenation is adequate with a saturation of 90%. Is able to generate approximately 800 mL on his BiPAP machine in terms of his tidal volume. His minute ventilation is around 13 L. He remains bronchospastic and wheezy. His breathing is nonlabored on the BiPAP. Once switched to nasal cannula, his oxygen saturations remains unchanged, however his work of breathing gets worse. As such, we'll try to keep him on a BiPAP for most of the day. He is hemodynamically stable. Cardiac rhythm is sinus. He is awake and alert and is also communicating. Noted. Pseudomonas in his sputum and the patient is currently on IV cefepime. He remains on bronchodilators. He remains on steroids. IV fluids are running in the form of normal saline at rate of 30 mL an hour. White cell count is at 23.8 with a hemoglobin 11.5, BUN is at 33 with a creatinine of 0.9 and sodium level is 143. Blood pressure is slightly elevated and the patient was given IV Vasotec. The chest x-ray from today shows hyperinflation, no acute pulmonary infiltrates. 12/13/2022, the patient was transitioned again to BiPAP. After being on high flow oxygen overnight at 45 L with an FiO2 of 40%, the patient was placed again on BiPAP this morning at a pressures of 12/5 with an FiO2 of 35%. Oxygenation remains stable at 97%. His generating adequate tidal volume. His minute ventilation is also adequate at 6 L/m nasal cannula. No chest x-rays available from today. Most recent x-rays were essentially clear. History recovering from acute COPD exacerbation. He is post ventilator dependent respiratory failure and he was extubated approximately 48 hours ago. He is tolerating the BiPAP while. Note that he is also Pseudomonas in his sputum and the patient is being treated accordingly with IV cefepime. Remains on bronchodilators and steroids. The white cell count is down to 16.3 with a hemoglobin of 12 and a platelet count of 283. BUN is 32 with a creatinine of 0.9 and his sodium level is at 141. Also, the patient is on DuoNeb nebulized treatments [id number], IV Solu-Medrol, IV cefepime, and he is also on long-term anticoagulation for now. His cough is still congested. We'll proceed with adequate pulmonary toileting. His blood pressure was also elevated. He was started on clonidine and this will be continued at a dose of 0.2 mg every 8 hours on a regular basis. He is also receiving Vasotec 2.5 mg IV every 6 hours on a when necessary basis. He was not taking any form of antihypertensive medications on outpatient basis. He was maintained on Lopressor which is still on board at 12.5 mg by mouth twice a day. Reevaluated today on 12/14/2022, patient remains in the ICU, remains on BiPAP w ith IPAP of 12 and EPAP of 6 and FiO2 35%. Receiving IV fluid in the form of 0.9 normal saline at 50 mL per hour patient is also receiving cefepime for his pseudomonal infection/pneumonia. Patient was on mechanical ventilation from 12/09 until 12/11. Patient remains marginal at best, seems to be almost BiPAP dependent. Does not tolerate going on nasal cannula, or airvo. Seems to be more comfortable with BiPAP, chest x-ray showed no evidence of active disease, he has mostly COPD changes. WBC count remains elevated at 17.0, nonetheless slightly better than it was a few days ago 23.8. Basic metabolic profile is normal, renal profile is normal patient remains on methylprednisolone 60 mg IV push every 6 hours, he is also on Xarelto 2.5 twice a day, patient is receiving cefepime for his pseudomonal infection, and remains on bronchodilators again patient is marginal at best. Reevaluated today on 12/15/2022, patient is resting comfortably on airvo at 40% FiO2 on 50 L flow, patient does not seem to be in distress, intermittently has been on BiPAP 12/6/35%. Patient remains marginal at best. Still receiving antibiotics for his pseudomonas aeruginosa pneumonia, WBC count is 14.2 hemoglo bin is 11.9 electrolytes are normal basic metabolic profile is normal renal profile is normal, chest x-ray continues to show COPD, patchy medial right basilar opacity consistent with pneumonia Reevaluated today on , patient remains on airvo at 50%, 45 L flow, and at times he was on BiPAP 12/6/35%. Patient is basically improving, but remains marginal at best. Gets short of breath with any activity. He is on IV fluid at 60 mL/h 0.9 normal saline. Patient seems to be comfortable, however he seems to be extremely frail, and chronically ill. I am considering sending the patient to the floor today. In the meantime the patient is currently being considered for possible palliative care by the admitting physician and I strongly believe that this is very appropriate Reevaluated today on 12/17/2022, remains on relatively high flow oxygen he is on airvo FiO2 60% and 45 L flow, alternating with BiPAP 12/6/35%. Patient seems to be doing well, about the same, no major change in the last few days. CODE STATUS was changed to DO NOT RESUSCITATE. Today I'm strongly recommending palliative care on this patient. His overall long-term prognosis is definitely poor. WBC count today is 22.9 hemoglobin is 14 electrode. Normal renal profile is normal bicarb is 35. Sputum on 12/09 was positive for Pseudomonas, patient remains on treatment for pseudomonas aeruginosa pneumonia Objective - Vital Signs Vital signs: Vital Signs Temp 98.0 F 12/17/22 08:00 Pulse 76 12/17/22 11:46 Resp 22 12/17/22 08:00 BP 172/84 12/17/22 08:00 Pulse Ox 92 L 12/17/22 08:00 FiO2 40 12/17/22 10:58 Intake & Output 12/16/22 12/17/22 12/17/22 18:59 06:59 18:59 Intake Total 240 680 Output Total 1225 560 750 Balance -985 120 -750 Weight 73.4 kg Intake: IV 240 680 Cefepime 2 gm In Sodium 200 Chloride 0.9% 100 ml @ 25 mls/hr IVPB Q8H [facility] Rx#: [id number] Sodium Chloride 0.9% 1, 240 480 000 ml @ 40 mls/hr IV . Q24H [facility] Rx#:[id number] Output: Urine 1225 560 750 Other: Voiding Method Indwelling Catheter Indwelling Catheter Indwelling Catheter # Bowel Movements 1 - Exam Physical Exam: Revealed 77-year-old white male on airvo at 45 L, 60% FiO2 Head: Atraumatic normocephalic. HEENT:[Neck is supple.] [No neck masses.] [No thyromegaly.] [No JVD.] Chest: [Diminished breath sound bilaterally, no rhonchi and no wheezes. Cardiac Exam: [Normal S1 and S2, no S3 gallop, no murmur.] Abdomen: [Soft, nontender, no megaly, no rebound, no guarding, normal bowel sounds.] Extremities: [No clubbing, no edema, no cyanosis.] Neurological Exam: [No focal neurologic deficit.] Alert oriented 3, but seems to be a bit slow. Psychiatric: Normal mood, flat affect, normal mental status examination. Skin: No rashes - Labs CBC & Chem 7: 12/17/22 08:12 12/17/22 08:12 Labs: Abnormal Lab Results - Last 24 Hours (Table) 12/16/22 12/16/22 12/17/22 Range/Units 16:47 21:07 06:37 WBC (3.8-10.6) k/uL MCHC (31.0-37.0) g/dL Neutrophils # (1.3-7.7) k/uL Lymphocytes # (1.0-4.8) k/uL Carbon Dioxide (22-30) mmol/L BUN (9-20) mg/dL Glucose (74-99) mg/dL POC Glucose (mg/dL) 221 H 142 H 114 H (70-110) mg/dL 12/17/22 12/17/22 12/17/22 Range/Units 08:12 08:12 11:00 WBC 22.9 H (3.8-10.6) k/uL MCHC 30.6 L (31.0-37.0) g/dL Neutrophils # 21.8 H (1.3-7.7) k/uL Lymphocytes # 0.4 L (1.0-4.8) k/uL Carbon Dioxide 35 H (22-30) mmol/L BUN 24 H (9-20) mg/dL Glucose 130 H (74-99) mg/dL POC Glucose (mg/dL) 141 H (70-110) mg/dL Assessment and Plan Assessment: Impression: Acute on chronic hypoxic and hypercapnic respiratory failure secondary to acute exacerbation of COPD. Altered mental status, secondary to toxic metabolic encephalopathy. Suspect acute pseudomonas aeruginosa pneumonia Chronic hypoxic respiratory failure on 3 L nasal on outpatient basis. History of mild underlying dementia Coronary arteriosclerosis History of hiatal hernia Ex-smoker X drinker History of pulmonary embolism maintained on long-term anticoagulations therapy/Xarelto. Benign essential hypertension History of TIA Cholelithiasis without acute cholecystitis. Recommendation: Transfer patient out of the ICU to a regular medical floor Consider palliative care on this patient on outpatient basis. Continue airvo. May use BiPAP as needed Continue bronchodilators and steroids Continue cefepime Continue Xarelto Continue Protonix for GI prophylaxis continue Solu-Medrol. Continue treatment of his blood pressure We will continue to follow. Prognosis is overall poor Time with Patient: Less than 30
[2022-12-17 16:37] LABS: Glucose,Whole Blood 215 mg/dL (70-110)
[2022-12-17] MEDS ORDERED: HYDROmorphone 0.5 MG/0.5 ML SYRINGE IVP PRN (17:17)
[2022-12-17 21:25] LABS: Glucose,Whole Blood 91 mg/dL (70-110)
[2022-12-17] MEDS: METOPROLOL TARTRATE 25 MG TAB PO SCH (21:36)
[2022-12-18] MEDS: methylPREDNISolone SOD SUCCI 125 MG/2 ML VIAL IV SCH ×2 (00:50→06:21)
[2022-12-18] MEDS: SODIUM CHLORIDE 0.45% 1,000 ML IV SCH (00:53)
[2022-12-18 05:35] VITALS: TEMP 97.8
[2022-12-18] MEDS: CEFEPIME 2 GM in SODIUM CHLORIDE 0.9% 100 ML IVPB SCH (06:19)
[2022-12-18 06:35] LABS: Glucose,Whole Blood 148 mg/dL (70-110)
[2022-12-18 06:48] LABS: Glucose,Whole Blood 142 mg/dL (70-110)
[2022-12-18] MEDS: INSULIN ASPART (NovoLOG) 100 UNIT/ML VIAL SQ SCH (07:05)
[2022-12-18] MEDS: RIVAROXABAN 2.5 MG TABLET PO SCH (08:05)
[2022-12-18] MEDS: ACETAMINOPHEN TAB 325 MG TAB PO PRN (08:05)
[2022-12-18] MEDS: GABAPENTIN 300 MG CAP PO SCH (08:05)
[2022-12-18] MEDS: amLODIPine 10 MG TAB PO SCH (08:06)
[2022-12-18] MEDS: cloNIDine HCL 0.1 MG TAB PO SCH (08:06)
[2022-12-18] MEDS: METOPROLOL TARTRATE 25 MG TAB PO SCH (08:06)
[2022-12-18] MEDS: lisinopriL 20 MG TAB PO SCH (08:06)
[2022-12-18] MEDS: PANTOPRAZOLE 40 MG/10 ML VIAL IVP SCH (08:07)
[2022-12-18 08:10] VITALS: BP 175/74; RESP 24
[2022-12-18] MEDS: FORMOTEROL FUMARATE 20 MCG/2 ML NEBU INHALATION SCH (08:30)
[2022-12-18] MEDS: BUDESONIDE 1 MG/2 ML NEBU INHALATION SCH (08:30)
[2022-12-18] MEDS: IPRATROPIUM-ALBUTEROL 3 ML NEB INHALATION SCH (08:31)
[2022-12-18] MEDS: ALPRAZolam 0.5 MG TAB PO PRN (08:45)
[2022-12-18 08:57] VITALS: PULSE 112
[2022-12-18] MEDS ORDERED: MORPHINE SULFATE 2 MG/ML SYRINGE IVP PRN (09:08)
[2022-12-18 10:19] VITALS: BMI 22.7
--- NOTE | 2022-12-18 11:20 | P.DS ---
Providers Date of admission: 12/09/22 08:30 Expected date of discharge: 12/18/22 Attending physician: Allen Chandler MD Consults: 12/09/22 08:28 Consult Physician Routine Consulting Provider: Yves Stovall Consult Reason/Comments: resp failure, pneumonia, sepsis Do you want consulting provider notified?: Yes 12/14/22 10:00 Consult to Palliative Care Routine Consulting Provider: Jo Ann Rubio Consult Reason/Comments: goals of care Do you want consulting provider notified?: Yes Primary care physician: Maximiliano Walden Hospital Course: Discharge Diagnosis: Acute exacerbation of COPD, possible pseudomonal pneumonia Acute on chronic hypoxic hypercapnic respiratory failure, status post extubation Acute metabolic encephalopathy Sepsis due to Pseudomonas Hypertensive urgency Transaminitis Cholelithiasis without any signs of acute cholecystitis Hospital Course: Patient is a 77-year-old male with coronary artery disease, hypertension, dyslipidemia, chronic diastolic congestive heart failure with ejection fraction 60-65%, severe COPD on home O2 at 3 L nasal cannula, pulmonary hypertension, and history of CVA with memory impairment on low-dose Xarelto due to prior pulmonary embolus on who presented via EMS for difficulty in breathing. The presentation to the ER he was in respiratory distress with a respiratory rate of 24, heart rate of 140, and was requiring BiPAP. Chest x-ray demonstrated atypical pneumonia. Laboratory analysis was remarkable for white blood cell count of 16.5, potassium 5.7, BUN 35, creatinine 1.33, troponin 0.025. At that time influenza A/B/RC/COVID-19 testing was negative. Patient was diagnosed with pneumonia resulting in sepsis and COPD exacerbation. He was started on antibiotics, steroids, and arrangements were made for admission to the telemetry unit. Pulmonary and cardiology were consulted. He was continued on broad- spectrum antibiotics and steroids as well as optimize bronchodilators. He was extubated on 12/11. He did require BiPAP after extubation. He was very slow to improve and palliative care was consulted. Due to worsening clinical status, family decided to pursue hospice/comfort care measures only. Imaging: Echocardiogram: Ejection fraction 55-60%, mild pulmonary hypertension Chest x-ray: Scattered lower lung infiltrate Liver ultrasound: Cholelithiasis without evidence of acute cholecystitis Patient seen and examined at bedside. Vital signs reviewed and stable. General: nontoxic, no distress, appears at stated age Cardiovascular: S1S2 reg, no murmur, positive posterior tibial pulse bilateral, Lungs: Diminished bs b/l, no rhonchi, no rales , no accessory muscle use, high flow nasal Abdominal: soft, nontender to palpation, no guarding, no appreciable organomegaly Ext: no gross muscle atrophy, no edema, no contractures Neuro: CN II-XI grossly intact, no focal neuro deficits Psych: Awake, oriented, appropriate affect Patient being transitioned to inpatient hospice. Patient Condition at Discharge: Poor Plan - Discharge Summary New Discharge Prescriptions: No Action oxyCODONE-APAP 10-325MG [Percocet 10-325 mg] 1 tab PO TID-W/MEALS Ipratropium-Albuterol Nebulize [Duoneb 0.5 mg-3 mg/3 ml Soln] 3 ml INHALATION RT-QID PRN PRN Reason: Shortness Of Breath predniSONE 10 mg PO DAILY Rivaroxaban [Xarelto] 2.5 mg PO BID Gabapentin [Neurontin] 600 mg PO TID Albuterol Sulfate [Albuterol Sulfate Hfa] 2 puff INHALATION RT-QID PRN PRN Reason: Shortness Of Breath Metoprolol Tartrate [Lopressor] 12.5 mg PO BID Discharge Medication List Gabapentin [Neurontin] 600 mg PO TID 11/24/21 [History] Rivaroxaban [Xarelto] 2.5 mg PO BID 11/24/21 [History] oxyCODONE-APAP 10-325MG [Percocet 10-325 mg] 1 tab PO TID-W/MEALS 11/24/21 [History] Albuterol Sulfate [Albuterol Sulfate Hfa] 2 puff INHALATION RT-QID PRN 12/09/22 [History] Ipratropium-Albuterol Nebulize [Duoneb 0.5 mg-3 mg/3 ml Soln] 3 ml INHALATION RT-QID PRN 12/09/22 [History] Metoprolol Tartrate [Lopressor] 12.5 mg PO BID 12/09/22 [History] predniSONE 10 mg PO DAILY 12/09/22 [History] Follow up Appointment(s)/Referral(s): Maximiliano Walden MD [Primary Care Provider] - 1-2 days Discharge Disposition: [facility] TO [facility]
--- NOTE | 2022-12-18 12:44 | P.PN ---
Subjective Progress Note Date: 12/18/22 Principal diagnosis: Acute hypoxic and hypercapnic respiratory failure, multifactorial secondary to pseudomonal pneumonia and COPD exacerbation Visit 76-year-old male patient presented to [facility] department because of worsening shortness of breath. The patient is known to have severe COPD with an FEV1 of 49% of predicted at baseline. He has underlying dementia, hypertension and hyperlipidemia and previous history of pulmonary embolism and he has been maintained on long-term xarelto . I was unable to interview the patient. As by the time I arrived, he was having agonal breathing while being on a BiPAP. I came to find other the patient was already being supported with BiPAP since he came in his breathing was progressively getting worse. He was unable to provide any history. He was unresponsive, and at that point, I intubated this patient in the emergency department. Currently is intubated on a mechanical ventilator. Is on assist-control at the rate of 26, tidal volume of 400, FiO2 of 100% with a PEEP of 5. Most recent blood pressure is 159/90. He is on propofol running at 40 mcg/kg/m. Intubation process was done without any complications. Chest x-ray is consistent with you. Post intubation chest x-rays pending. Meanwhile, his blood work from today showed a basic of 16.9 with a hemoglobin of 15 and a platelet count of 336. Normal coagulation profile. BUN is at 35 with a creatinine of 1.38. Sodium is 136. Potassium level is at 5.7. LFTs are s lightly elevated with an AST of 61, ALT of 84, alkaline phosphatase of 131, proBNP is nonelevated at 102 and the patient has a negative Covid 19 testing, negative influenza and negative RSV. Blood gases pending. Post intubation chest x-rays pending. He has not required any pressors. He is afebrile. He was started on Rocephin and Zithromax and is also on IV Solu-Medrol. No reported chest pain. EKG showed no ischemic changes. It is consistent with sinus tachycardia. I am seeing this patient in follow-up 12/10/2022 in the intensive care unit. He remains intubated on mechanical ventilator with settings of assist control, respiratory rate 26, tidal volume 450, FiO2 40%, PEEP of 5. ABGs done on the settings show PO2 130, pCO2 of 40, pH of 7.36. Patient's FiO2 is dropped 35%. Chest x-ray from this morning shows endotracheal tube approximately 2 cm above the armando, improved bibasilar infiltrates, small right pleural effusion, and chronic COPD changes. Sputum culture is pending. Patient is covered on a combination of Zithromax, cefepime, and vancomycin. Patient has been afebrile overnight. Procalcitonin level was only mildly elevated at 0.17. Patient's CBC shows a WBC count down to 13.7, hemoglobin 12.6, hematocrit 39.3, platelets 249,000. BMP from this morning shows a sodium 133, potassium 5.2, chloride 106, serum CO2 24, BUN of 27, creatinine 1.01, glucose 153. Patient is currently sedated on propofol 20 mics per kilogram per minute. He does wake up and follow commands to verbal stimulation. So has normal saline infusing at 130 ML's per hour. He has not required any vasopressors. Urine output in the order of 40-50 mL an hour. He has not been started on tube feeds yet. Peak airway pressures are 35 and plateau pressure 17. He remains on bronchodilators, IV Solu-Medrol. Patient is mildly elevated, and a liver ultrasound is pending. Vital signs are stable at this time. On today's evaluation of 12/11/2022, I'm seeing the patient for a follow-up. The patient remains intubated on a mechanical ventilator. This morning he is taken off the sedation and the patient is awake and alert and following simple commands. He remains on mechanical ventilator for now on assist control mode at the rate of 26, tidal volume of 450, FiO2 of 30% with a PEEP of 5. Blood gases from today shows a pH of 7.33 with a pCO2 of 43 and pO2 of 82 and this was an FiO2 of 30%. Chest x-ray from today shows emphysema without any acute abnormalities. The patient remains on a combination of bronchodilators and steroids. The sputum sample was positive for pseudomonas aeruginosa and the patient is currently on IV cefepime and Zithromax has been discontinued. He remains on bronchodilators. He remains on steroids. He is also on long-term and coagulation with Xarelto 2.5 mg by mouth twice a day. He is also on normal saline at rate of 40 mL an hour. His cardiac rhythm is sinus. Urine output is adequate. The overall fluid balance has been +1.6 L over the past 24 hours. On 12/12/2022, the patient was extubated yesterday and the patient is currently on BiPAP at a pressure of 12/5 cm of water. He is currently on FiO2 of 40% in his oxygenation is adequate with a saturation of 90%. Is able to generate approximately 800 mL on his BiPAP machine in terms of his tidal volume. His minute ventilation is around 13 L. He remains bronchospastic and wheezy. His breathing is nonlabored on the BiPAP. Once switched to nasal cannula, his oxygen saturations remains unchanged, however his work of breathing gets worse. As such, we'll try to keep him on a BiPAP for most of the day. He is hemodynamically stable. Cardiac rhythm is sinus. He is awake and alert and is also communicating. Noted. Pseudomonas in his sputum and the patient is currently on IV cefepime. He remains on bronchodilators. He remains on steroids. IV fluids are running in the form of normal saline at rate of 30 mL an hour. White cell count is at 23.8 with a hemoglobin 11.5, BUN is at 33 with a creatinine of 0.9 and sodium level is 143. Blood pressure is slightly elevated and the patient was given IV Vasotec. The chest x-ray from today shows hyperinflation, no acute pulmonary infiltrates. 12/13/2022, the patient was transitioned again to BiPAP. After being on high flow oxygen overnight at 45 L with an FiO2 of 40%, the patient was placed again on BiPAP this morning at a pressures of 12/5 with an FiO2 of 35%. Oxygenation remains stable at 97%. His generating adequate tidal volume. His minute ventilation is also adequate at 6 L/m nasal cannula. No chest x-rays available from today. Most recent x-rays were essentially clear. History recovering from acute COPD exacerbation. He is post ventilator dependent respiratory failure and he was extubated approximately 48 hours ago. He is tolerating the BiPAP while. Note that he is also Pseudomonas in his sputum and the patient is being treated accordingly with IV cefepime. Remains on bronchodilators and steroids. The white cell count is down to 16.3 with a hemoglobin of 12 and a platelet count of 283. BUN is 32 with a creatinine of 0.9 and his sodium level is at 141. Also, the patient is on DuoNeb nebulized treatments [id number], IV Solu-Medrol, IV cefepime, and he is also on long-term anticoagulation for now. His cough is still congested. We'll proceed with adequate pulmonary toileting. His blood pressure was also elevated. He was started on clonidine and this will be continued at a dose of 0.2 mg every 8 hours on a regular basis. He is also receiving Vasotec 2.5 mg IV every 6 hours on a when necessary basis. He was not taking any form of antihypertensive medications on outpatient basis. He was maintained on Lopressor which is still on board at 12.5 mg by mouth twice a day. Reevaluated today on 12/14/2022, patient remains in the ICU, remains on BiPAP w ith IPAP of 12 and EPAP of 6 and FiO2 35%. Receiving IV fluid in the form of 0.9 normal saline at 50 mL per hour patient is also receiving cefepime for his pseudomonal infection/pneumonia. Patient was on mechanical ventilation from 12/09 until 12/11. Patient remains marginal at best, seems to be almost BiPAP dependent. Does not tolerate going on nasal cannula, or airvo. Seems to be more comfortable with BiPAP, chest x-ray showed no evidence of active disease, he has mostly COPD changes. WBC count remains elevated at 17.0, nonetheless slightly better than it was a few days ago 23.8. Basic metabolic profile is normal, renal profile is normal patient remains on methylprednisolone 60 mg IV push every 6 hours, he is also on Xarelto 2.5 twice a day, patient is receiving cefepime for his pseudomonal infection, and remains on bronchodilators again patient is marginal at best. Reevaluated today on 12/15/2022, patient is resting comfortably on airvo at 40% FiO2 on 50 L flow, patient does not seem to be in distress, intermittently has been on BiPAP 12/6/35%. Patient remains marginal at best. Still receiving antibiotics for his pseudomonas aeruginosa pneumonia, WBC count is 14.2 hemoglo bin is 11.9 electrolytes are normal basic metabolic profile is normal renal profile is normal, chest x-ray continues to show COPD, patchy medial right basilar opacity consistent with pneumonia Reevaluated today on , patient remains on airvo at 50%, 45 L flow, and at times he was on BiPAP 12/6/35%. Patient is basically improving, but remains marginal at best. Gets short of breath with any activity. He is on IV fluid at 60 mL/h 0.9 normal saline. Patient seems to be comfortable, however he seems to be extremely frail, and chronically ill. I am considering sending the patient to the floor today. In the meantime the patient is currently being considered for possible palliative care by the admitting physician and I strongly believe that this is very appropriate Reevaluated today on 12/17/2022, remains on relatively high flow oxygen he is on airvo FiO2 60% and 45 L flow, alternating with BiPAP 12/6/35%. Patient seems to be doing well, about the same, no major change in the last few days. CODE STATUS was changed to DO NOT RESUSCITATE. Today I'm strongly recommending palliative care on this patient. His overall long-term prognosis is definitely poor. WBC count today is 22.9 hemoglobin is 14 electrode. Normal renal profile is normal bicarb is 35. Sputum on 12/09 was positive for Pseudomonas, patient remains on treatment for pseudomonas aeruginosa pneumonia Patient was reevaluated today on 12/18/2022, remains marginal at best, patient is developing worsening shortness of breath early this morning, apparently family is at bedside, and the CODE STATUS was changed to him for care measures. I believe that's very appropriate, and the patient will be made hospice, hospice staff is actually at bedside. And the plan is to change completely to comfort care measures and I believe that's very appropriate Objective - Vital Signs Vital signs: Vital Signs Temp 97.8 F 12/18/22 08:00 Pulse 112 H 12/18/22 08:55 Resp 24 12/18/22 08:00 BP 175/74 12/18/22 08:00 Pulse Ox 94 L 12/18/22 08:00 FiO2 40 12/17/22 10:58 Intake & Output 12/17/22 12/18/22 12/18/22 18:59 06:59 18:59 Intake Total 600 50 Output Total 1350 250 100 Balance -750 -200 -100 Weight 67.8 kg 67.8 kg Intake: IV 600 50 Sodium Chloride 0.45% 1, 50 000 ml @ 50 mls/hr IV . Q20H [facility] Rx#:[id number] Sodium Chloride 0.9% 1, 600 000 ml @ 40 mls/hr IV . Q24H [facility] Rx#:[id number] Output: Urine 1350 250 100 Other: Voiding Method Indwelling Catheter Indwelling Catheter Urinal # Voids 1 - Exam Physical Exam: Revealed 77-year-old white male on high flow nasal cannula patient is noted to be in mild respiratory distress. Head: Atraumatic normocephalic. HEENT:[Neck is supple.] [No neck masses.] [No thyromegaly.] [No JVD.] Chest: [Diminished breath sound bilaterally, wheezing on forced expiratory maneuver. Cardiac Exam: [Normal S1 and S2, no S3 gallop, no murmur.] Abdomen: [Soft, nontender, no megaly, no rebound, no guarding, normal bowel sounds.] Extremities: [No clubbing, no edema, no cyanosis.] Neurological Exam: [No focal neurologic deficit.] Alert oriented 3, but seems to be a bit slow. Psychiatric: Normal mood, flat affect, normal mental status examination. Skin: No rashes - Labs CBC & Chem 7: 12/17/22 08:12 12/17/22 08:12 Labs: Abnormal Lab Results - Last 24 Hours (Table) 12/17/22 12/18/22 12/18/22 Range/Units 16:35 06:34 06:47 POC Glucose (mg/dL) 215 H 148 H 142 H (70-110) mg/dL Assessment and Plan Assessment: Impression: Acute on chronic hypoxic and hypercapnic respiratory failure secondary to acute exacerbation of COPD. Altered mental status, secondary to toxic metabolic encephalopathy. Suspect acute pseudomonas aeruginosa pneumonia Chronic hypoxic respiratory failure on 3 L nasal on outpatient basis. History of mild underlying dementia Coronary arteriosclerosis History of hiatal hernia Ex-smoker X drinker History of pulmonary embolism maintained on long-term anticoagulations therapy/Xarelto. Benign essential hypertension History of TIA Cholelithiasis without acute cholecystitis. Recommendation: Discussed his condition with family at bedside Discussed his condition with the admitting physician and hospice staff. Agree with hospice Patient is basically a failure to thrive. We'll sign off and see as needed Time with Patient: Less than 30
== END 2022-12-18 10:12 | disposition still patient (30) | DRG 871 ==
LOC: EC 06:55 → 3SCARD 08:30 → 2SICU 11:09
PROVIDERS: ADMIT Student in an Organized Health Care Education/Training Program; ATTEND Student in an Organized Health Care Education/Training Program
PROC: 0BH18EZ Insertion of Endotracheal Airway into Trachea, Via Natural or Artificial Opening Endoscopic (ICD-10-PCS; principal; 2022-12-09)
PROC: 5A1945Z Respiratory Ventilation, 24-96 Consecutive Hours (ICD-10-PCS; 2022-12-09)
PROC: 5A09357 Assistance with Respiratory Ventilation, Less than 24 Consecutive Hours, Continuous Positive Airway Pressure (ICD-10-PCS; 2022-12-09)
DX: A41.52 Sepsis due to Pseudomonas (principal); G92.8 Other toxic encephalopathy; J96.21 Acute and chronic respiratory failure with hypoxia; J96.22 Acute and chronic respiratory failure with hypercapnia; J15.1 Pneumonia due to Pseudomonas; N17.9 Acute kidney failure, unspecified; Z99.11 Dependence on respirator [ventilator] status; I48.92 Unspecified atrial flutter; I50.32 Chronic diastolic (congestive) heart failure; I27.20 Pulmonary hypertension, unspecified; J43.9 Emphysema, unspecified; I11.0 Hypertensive heart disease with heart failure; F03.90 Unspecified dementia, unspecified severity, without behavioral disturbance, psychotic disturbance, mood disturbance, and anxiety; I69.811 Memory deficit following other cerebrovascular disease; F10.21 Alcohol dependence, in remission; Z66 Do not resuscitate; E78.5 Hyperlipidemia, unspecified; N32.81 Overactive bladder; I25.10 Atherosclerotic heart disease of native coronary artery without angina pectoris; K44.9 Diaphragmatic hernia without obstruction or gangrene; I16.0 Hypertensive urgency; R74.01 Elevation of levels of liver transaminase levels; K80.20 Calculus of gallbladder without cholecystitis without obstruction; I48.91 Unspecified atrial fibrillation; K21.9 Gastro-esophageal reflux disease without esophagitis; E87.5 Hyperkalemia; M19.90 Unspecified osteoarthritis, unspecified site; Z20.822 Contact with and (suspected) exposure to COVID-19; Z99.81 Dependence on supplemental oxygen; Z87.891 Personal history of nicotine dependence; I25.2 Old myocardial infarction; Z87.01 Personal history of pneumonia (recurrent); Z86.711 Personal history of pulmonary embolism; Z79.899 Other long term (current) drug therapy; Z79.51 Long term (current) use of inhaled steroids; Z80.8 Family history of malignant neoplasm of other organs or systems; Z79.01 Long term (current) use of anticoagulants; Z79.891 Long term (current) use of opiate analgesic; Z91.018 Allergy to other foods
CPT/HCPCS: 36415; 36600; 71045; 76705; 80048; 80053; 82805; 83605; 83880; 84145; 84484; 85025; 85027; 85610; 85730; 87070; 87077; 87186; 87205; 87636; 93005; 93306; 94002; 94003; 94640; 94660; 96365; 96366; 96367; 96368; 96375; 96376; 99291

== ENCOUNTER 2022-12-18 10:05 | Inpatient (IN) | payer MEDICAID ==
[2022-12-18] MEDS ORDERED: ONDANSETRON 4 MG/2 ML VIAL IVP PRN (10:06)
[2022-12-18] MEDS ORDERED: DRY MOUTH SPRAY 44.3 SPRAY/44.3 ML SPRAY MUCOUS MEM PRN (10:06)
[2022-12-18] MEDS ORDERED: ACETAMINOPHEN TAB 325 MG TAB PO PRN (10:06)
--- NOTE | 2022-12-18 11:25 | P.HPIM ---
History of Present Illness H&P Date: 12/18/22 Patient is a 77-year-old male with coronary artery disease, hypertension, dyslipidemia, chronic diastolic congestive heart failure with ejection fraction 60-65%, severe COPD on home O2 at 3 L nasal cannula, pulmonary hypertension, and history of CVA with memory impairment on low-dose Xarelto due to prior pulmonary embolus on who presented via EMS for difficulty in breathing. The presentation to the ER he was in respiratory distress with a respiratory rate of 24, heart rate of 140, and was requiring BiPAP. Chest x-ray demonstrated atypical pneumonia. Laboratory analysis was remarkable for white blood cell count of 16.5, potassium 5.7, BUN 35, creatinine 1.33, troponin 0.025. At that time influenza A/B/RC/COVID-19 testing was negative. Patient was diagnosed with pneumonia resulting in sepsis and COPD exacerbation. He was started on antibiotics, steroids, and arrangements were made for admission to the telemetry unit. Pulmonary and cardiology were consulted. He was continued on broad- spectrum antibiotics and steroids as well as optimize bronchodilators. He was extubated on 12/11. He did require BiPAP after extubation. He was very slow to improve and palliative care was consulted. Due to worsening clinical status, family decided to pursue hospice/comfort care measures only. Patient seen and examined at bedside. Vital signs reviewed General: nontoxic, no distress, appears at stated age Cardiovascular: S1S2 reg, no murmur, positive posterior tibial pulse bilateral, Lungs: Diminished bs b/l, no rhonchi, no rales , no accessory muscle use, high flow nasal Abdominal: soft, nontender to palpation, no guarding, no appreciable organom egaly Ext: no gross muscle atrophy, no edema, no contractures Neuro: CN II-XI grossly intact, no focal neuro deficits Psych: Awake, oriented, appropriate affect Assessment/Plan: Comfort care measures only Hospice care Acute exacerbation of COPD Pseudomonas pneumonia Acute hypoxic respiratory failure Hypertensive urgency Acute metabolic encephalopathy -On IV morphine 4 mg every 2 hours as needed, Ativan 1 mg IV every 4 hours as needed, atropine and glycopyrrolate for excess secretions, Zofran 4 mg IV every 8 hours needed for nausea, Tylenol as needed The patient is admitted with an anticipated less than 2 midnight stay as inpatient status for hospice. Prognosis is poor, patient will likely pass during this hospitalization. Surrogate decision-maker: Daughter CODE STATUS: DNR/DNI A total of 55 minutes was spent on the care of this complex patient more than 50% of the time was spent in counseling and care coordination. 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 Last Myocardial Infarction Date:: unknown History of Any Multi-Drug Resistant Organisms: None Reported Past Surgical History: Back Surgery Additional Past Surgical History / Comment(s): EGD with bx/colonoscopy with bx, bronchoscopy, low back surgery, PICC-since removed. Past Anesthesia/Blood Transfusion Reactions: No Reported Reaction Additional Past Anesthesia/Blood Transfusion Reaction / Comment(s): Pt has never received blood. Past Psychological History: Anxiety, Depression Additional Psychological History / Comment(s): lives at home with daughter Pt has had increased difficulty with ambulation/falls. Pt has legal guardians, Rica Hess and Ricki Hess III. Smoking Status: Former smoker Past Alcohol Use History: None Reported Additional Past Alcohol Use History / Comment(s): quit smoking 2017, smoked for >50 yrs. Past alcohol abuse-quit drinking August 2015. Past Drug Use History: Cocaine Additional Drug Use History / Comment(s): cocaine use in past-quit 4-5yrs ago.either 2012 or 2013 per pt. - Past Family History Father Family Medical History: Cancer Additional Family Medical History / Comment(s): Father had throat cancer. Mother Family Medical History: Cancer Additional Family Medical History / Comment(s): Mother had breast cancer. Medications and Allergies Home Medications Medication Instructions Recorded Confirmed Type Gabapentin [Neurontin] 600 mg PO TID 11/24/21 12/18/22 History Rivaroxaban [Xarelto] 2.5 mg PO BID 11/24/21 12/18/22 History oxyCODONE-APAP 10-325MG [Percocet 1 tab PO TID-W/MEALS 11/24/21 12/18/22 History 10-325 mg] Albuterol Sulfate [Albuterol 2 puff INHALATION RT-QID PRN 12/09/22 12/18/22 History Sulfate Hfa] Ipratropium-Albuterol Nebulize 3 ml INHALATION RT-QID PRN 12/09/22 12/18/22 History [Duoneb 0.5 mg-3 mg/3 ml Soln] Metoprolol Tartrate [Lopressor] 12.5 mg PO BID 12/09/22 12/18/22 History predniSONE 10 mg PO DAILY 12/09/22 12/18/22 History Allergies Allergy/AdvReac Type Severity Reaction Status Date / Time caffeine AdvReac Diarrhea Verified 12/09/22 08:35 Physical Exam Vitals: Intake and Output 12/17/22 12/18/22 12/18/22 22:59 06:59 14:59 Other: Weight 67.8 kg
[2022-12-18] MEDS: MORPHINE SULFATE 4 MG/ML SYRINGE IV PRN ×4 (11:44→20:19)
[2022-12-18] MEDS: SCOPOLAMINE 1 MG/72 HR PATCH TRANSDERM SCH (17:50)
[2022-12-19] MEDS: MORPHINE SULFATE 4 MG/ML SYRINGE IV PRN ×4 (00:11→13:56)
[2022-12-19 02:32] VITALS: BP 165/80; TEMP 97.9
[2022-12-19] MEDS: ATROPINE OPHTH SOLN 1% 5ML BTL SUBLINGUAL PRN ×3 (10:23→18:31)
[2022-12-19] MEDS: GLYCOPYRROLATE 0.2 MG/ML 2 ML VIAL IVP PRN ×2 (10:24→17:43)
[2022-12-19] MEDS: LORazepam 2 MG/ML INJ IV PRN ×2 (10:27→14:57)
--- NOTE | 2022-12-19 13:03 | P.PN ---
Subjective Progress Note Date: 12/19/22 Patient is a 77-year-old male with coronary artery disease, hypertension, dyslipidemia, chronic diastolic congestive heart failure with ejection fraction 60-65%, severe COPD on home O2 at 3 L nasal cannula, pulmonary hypertension, and history of CVA with memory impairment on low-dose Xarelto due to prior pulmonary embolus on who presented via EMS for difficulty in breathing. The presentation to the ER he was in respiratory distress with a respiratory rate of 24, heart rate of 140, and was requiring BiPAP. Chest x-ray demonstrated atypical pneumonia. Laboratory analysis was remarkable for white blood cell count of 16.5, potassium 5.7, BUN 35, creatinine 1.33, troponin 0.025. At that time influenza A/B/RSV/COVID-19 testing was negative. Patient was diagnosed with pneumonia resulting in sepsis and COPD exacerbation. He was started on antibiotics, steroids, and arrangements were made for admission to the telemetry unit. Pulmonary and cardiology were consulted. He was continued on broad- spectrum antibiotics and steroids as well as optimize bronchodilators. He was extubated on 12/11. He did require BiPAP and Airvo after extubation. He was very slow to improve and palliative care was consulted. Due to worsening clinical status, family decided to pursue hospice/comfort care measures only. He was [facility]. Patient seen and examined at bedside. He reports some shortness of breath, increased sputum production, and anxiety. Vital signs reviewed General: nontoxic, mild distress, appears at stated age Cardiovascular: S1S2 reg, no murmur, positive posterior tibial pulse bilateral, Lungs: Course bs bilateral, no rhonchi, no rales , no accessory muscle use Ext: no gross muscle atrophy, no edema, no contractures Neuro: CN II-XI grossly intact, no focal neuro deficits Psych: Alert, oriented, appropriate affect Assessment: On hospice care. Acute exacerbation of COPD Pseudomonas pneumonia Acute hypoxic respiratory failure Hypertensive urgency Acute metabolic encephalopathy Data Review: Temperature 97.9, pulse 88, respirations 19, blood pressure 165/80, O2 sat 97% on 3 L Plan: - D/W floor and hospice nursing. Will give robinol and atripin to hlep with secretions. Will given ativan to help wtih anxiety and will consider morphine gtt if no improvement in symptoms. - On IV morphine 4 mg every 2 hours as needed - Ativan 1 mg IV every 4 hours as needed - Zofran 4 mg IV every 8 hours needed for nausea This dictation was prepared using [employer] voice recognition software. Though every attempt is made to correct errors during during dictation some may still exist. Objective - Vital Signs Vital signs: Vital Signs Temp 97.9 F 12/19/22 00:41 Pulse 88 12/19/22 00:41 Resp 19 12/19/22 07:04 BP 165/80 12/19/22 00:41 Pulse Ox 97 12/19/22 07:04 FiO2 Intake & Output 12/18/22 12/19/22 12/19/22 18:59 06:59 18:59 Output Total 500 500 Balance -500 -500 Weight 67.8 kg Output: Urine 500 500 Other: Voiding Method External Catheter Indwelling Catheter
[2022-12-19] MEDS ORDERED: IPRATROPIUM-ALBUTEROL 3 ML NEB INHALATION PRN (13:11)
[2022-12-19] MEDS: MORPHINE SULFATE (100 MG/2 ML) 100 MG in SODIUM CHLORIDE 0.9% 100 ML IV SCH (13:34)
[2022-12-19 16:54] VITALS: PULSE 135
[2022-12-19] MEDS: LORazepam 1 MG TAB PO SCH (20:50)
[2022-12-20] MEDS: GLYCOPYRROLATE 0.2 MG/ML 2 ML VIAL IVP PRN (00:06)
[2022-12-20] MEDS: LORazepam 1 MG TAB PO SCH ×4 (00:31→23:13)
[2022-12-20] MEDS: ATROPINE OPHTH SOLN 1% 5ML BTL SUBLINGUAL PRN ×3 (00:31→21:52)
[2022-12-20] MEDS: MORPHINE SULFATE (100 MG/2 ML) 100 MG in SODIUM CHLORIDE 0.9% 100 ML IV SCH ×2 (11:32→14:21)
--- NOTE | 2022-12-20 15:37 | P.PN ---
Subjective Progress Note Date: 12/20/22 (delayed charting seen at 1030) Patient is a 77-year-old male with coronary artery disease, hypertension, dyslipidemia, chronic diastolic congestive heart failure with ejection fraction 60-65%, severe COPD on home O2 at 3 L nasal cannula, pulmonary hypertension, and history of CVA with memory impairment on low-dose Xarelto due to prior pulmonary embolus on who presented via EMS for difficulty in breathing. The presentation to the ER he was in respiratory distress with a respiratory rate of 24, heart rate of 140, and was requiring BiPAP. Chest x-ray demonstrated atypical pneumonia. Laboratory analysis was remarkable for white blood cell count of 16.5, potassium 5.7, BUN 35, creatinine 1.33, troponin 0.025. At that time influenza A/B/RSV/COVID-19 testing was negative. Patient was diagnosed with pneumonia resulting in sepsis and COPD exacerbation. He was started on antibiot ics, steroids, and arrangements were made for admission to the telemetry unit. Pulmonary and cardiology were consulted. He was continued on broad-spectrum antibiotics and steroids as well as optimize bronchodilators. He was extubated on 12/11. He did require BiPAP and Airvo after extubation. He was very slow to improve and palliative care was consulted. Due to worsening clinical status, family decided to pursue hospice/comfort care measures only. He was admitted to [facility]. Patient seen and examined at bedside. He is unresponsive, but appears comfortable. Vital signs reviewed General: nontoxic, no distress, appears at stated age Cardiovascular: S1S2 reg, no murmur, positive posterior tibial pulse bilateral, Lungs: slow respiratory rate, with decreased bs b/l Ext: no gross muscle atrophy, no edema, no contractures Psych: Aunresponsive Assessment: On hospice care. Acute exacerbation of COPD Pseudomonas pneumonia Acute hypoxic respiratory failure Hypertensive urgency Acute metabolic encephalopathy Data Review: Temperature 97.9, pulse 88, respirations 19, blood pressure 165/80, O2 sat 97% on 3 L Plan: - D/W floor and hospice nursing. Improved symptom control today. - Morphine gtt was started yesterday, appears comfortable - d/c oral ativan, continue with prn IV ativan - nursing will call family to come to bedside. This dictation was prepared using [employer] voice recognition software. Though every attempt is made to correct errors during during dictation some may still exist. Objective - Vital Signs Vital signs: Vital Signs Temp 97.9 F 12/19/22 00:41 Pulse 135 H 12/19/22 14:00 Resp 4 L 12/20/22 14:00 BP 165/80 12/19/22 00:41 Pulse Ox 90 L 12/20/22 14:00 FiO2 Intake & Output 12/19/22 12/20/22 12/20/22 18:59 06:59 18:59 Intake Total 1.19 87.244 Output Total 1000 160 Balance -998.81 -160 87.244 Intake: Intake, IV Titration 1.19 87.244 Amount Morphine Sulfate (100 mg/ 1.19 87.244 2 ml) 100 mg In Sodium Chloride 0.9% 100 ml @ 2 MG/HR 2.04 mls/hr IV . Q24H [facility] Rx#:[id number] Output: Urine 1000 160 Other: Voiding Method Indwelling Catheter Indwelling Catheter
[2022-12-21] MEDS: MORPHINE SULFATE (100 MG/2 ML) 100 MG in SODIUM CHLORIDE 0.9% 100 ML IV SCH ×2 (07:00→21:21)
[2022-12-21] MEDS: ATROPINE OPHTH SOLN 1% 5ML BTL SUBLINGUAL PRN ×2 (07:59→14:03)
[2022-12-21] MEDS: LORazepam 1 MG TAB PO SCH (08:02)
[2022-12-21] MEDS: SCOPOLAMINE 1 MG/72 HR PATCH TRANSDERM SCH (10:29)
[2022-12-21] MEDS: LORazepam 2 MG/ML INJ IV PRN (10:39)
[2022-12-21] MEDS: GLYCOPYRROLATE 0.2 MG/ML 2 ML VIAL IVP PRN ×2 (11:24→17:28)
--- NOTE | 2022-12-21 15:47 | P.PN ---
Subjective Progress Note Date: 12/21/22 (delayed charting seen at 1030) Patient is a 77-year-old male with coronary artery disease, hypertension, dyslipidemia, chronic diastolic congestive heart failure with ejection fraction 60-65%, severe COPD on home O2 at 3 L nasal cannula, pulmonary hypertension, and history of CVA with memory impairment on low-dose Xarelto due to prior pulmonary embolus on who presented via EMS for difficulty in breathing. The presentation to the ER he was in respiratory distress with a respiratory rate of 24, heart rate of 140, and was requiring BiPAP. Chest x-ray demonstrated atypical pneumonia. Laboratory analysis was remarkable for white blood cell count of 16.5, potassium 5.7, BUN 35, creatinine 1.33, troponin 0.025. At that time influenza A/B/RSV/COVID-19 testing was negative. Patient was diagnosed with pneumonia resulting in sepsis and COPD exacerbation. He was started on antibiot ics, steroids, and arrangements were made for admission to the telemetry unit. Pulmonary and cardiology were consulted. He was continued on broad-spectrum antibiotics and steroids as well as optimize bronchodilators. He was extubated on 12/11. He did require BiPAP and Airvo after extubation. He was very slow to improve and palliative care was consulted. Due to worsening clinical status, family decided to pursue hospice/comfort care measures only. He was admitted to [facility]. Patient seen and examined at bedside. He is unresponsive,opens eveys to touch today. Vital signs reviewed General: nontoxic, no distress, appears at stated age Cardiovascular: S1S2 reg, no murmur, positive posterior tibial pulse bilateral, Lungs: slow respiratory rate, with decreased bs b/l Ext: no gross muscle atrophy, no edema, no contractures Psych: unresponsive Assessment: On hospice care. Acute exacerbation of COPD Pseudomonas pneumonia Acute hypoxic respiratory failure Hypertensive urgency Acute metabolic encephalopathy Data Review: RR 8 Plan: - Morphine gtt and comfor measures prn IV ativan This dictation was prepared using [employer] voice recognition software. Though every attempt is made to correct errors during during dictation some may still exist. Objective - Vital Signs Vital signs: Vital Signs Temp 97.9 F 12/19/22 00:41 Pulse 135 H 12/19/22 14:00 Resp 8 L 12/21/22 14:00 BP 165/80 12/19/22 00:41 Pulse Ox 89 L 12/21/22 01:36 FiO2 Intake & Output 12/20/22 12/21/22 12/21/22 18:59 06:59 18:59 Intake Total 87.244 93.908 Output Total 1235 Balance 87.244 -1235 93.908 Intake: Intake, IV Titration 87.244 93.908 Amount Morphine Sulfate (100 mg/ 87.244 93.908 2 ml) 100 mg In Sodium Chloride 0.9% 100 ml @ 2 MG/HR 2.04 mls/hr IV . Q24H [facility] Rx#:[id number] Output: Urine 1235 Other: Voiding Method Indwelling Catheter Indwelling Catheter Indwelling Catheter
[2022-12-22] MEDS: ATROPINE OPHTH SOLN 1% 5ML BTL SUBLINGUAL PRN ×2 (05:51→11:36)
[2022-12-22] MEDS: LORazepam 2 MG/ML INJ IV PRN (09:08)
[2022-12-22] MEDS: MORPHINE SULFATE (100 MG/2 ML) 100 MG in SODIUM CHLORIDE 0.9% 100 ML IV SCH (11:23)
--- NOTE | 2022-12-22 14:55 | P.PN ---
Subjective Progress Note Date: 12/22/22 (delayed charting seen at 0915) Patient is a 77-year-old male with coronary artery disease, hypertension, dyslipidemia, chronic diastolic congestive heart failure with ejection fraction 60-65%, severe COPD on home O2 at 3 L nasal cannula, pulmonary hypertension, and history of CVA with memory impairment on low-dose Xarelto due to prior pulmonary embolus on who presented via EMS for difficulty in breathing. The presentation to the ER he was in respiratory distress with a respiratory rate of 24, heart rate of 140, and was requiring BiPAP. Chest x-ray demonstrated atypical pneumonia. Laboratory analysis was remarkable for white blood cell count of 16.5, potassium 5.7, BUN 35, creatinine 1.33, troponin 0.025. At that time influenza A/B/RSV/COVID-19 testing was negative. Patient was diagnosed with pneumonia resulting in sepsis and COPD exacerbation. He was started on antibiot ics, steroids, and arrangements were made for admission to the telemetry unit. Pulmonary and cardiology were consulted. He was continued on broad-spectrum antibiotics and steroids as well as optimize bronchodilators. He was extubated on 12/11. He did require BiPAP and Airvo after extubation. He was very slow to improve and palliative care was consulted. Due to worsening clinical status, family decided to pursue hospice/comfort care measures only. He was admitted to [facility]. Patient seen and examined at bedside. He is unresponsive, kusmal respirations Vital signs reviewed General: nontoxic, no distress, appears at stated age, moteling b/l knees Cardiovascular: S1S2 reg, no murmur, positive posterior tibial pulse bilateral, Lungs: slow respiratory rate, with decreased bs b/l, ronchi Ext: no gross muscle atrophy, no edema, no contractures Psych: unresponsive Assessment: On hospice care. Acute exacerbation of COPD Pseudomonas pneumonia Acute hypoxic respiratory failure Hypertensive urgency Acute metabolic encephalopathy Data Review: RR 8 Plan: - Morphine gtt and comfor measures - asked nursing to give a dose of ativan This dictation was prepared using [employer] recognition software. Though every attempt is made to correct errors during during dictation some may still exist. Objective - Vital Signs Vital signs: Vital Signs Temp 97.9 F 12/19/22 00:41 Pulse 135 H 12/19/22 14:00 Resp 7 L 12/22/22 07:48 BP 165/80 12/19/22 00:41 Pulse Ox 89 L 12/21/22 01:36 FiO2 Intake & Output 12/21/22 12/22/22 12/22/22 18:59 06:59 18:59 Intake Total 93.908 66.096 85.884 Balance 93.908 66.096 85.884 Intake: Intake, IV Titration 93.908 66.096 85.884 Amount Morphine Sulfate (100 mg/ 93.908 66.096 85.884 2 ml) 100 mg In Sodium Chloride 0.9% 100 ml @ 2 MG/HR 2.04 mls/hr IV . Q24H [facility] Rx#:[id number] Other: Voiding Method Indwelling Catheter Indwelling Catheter
[2022-12-22 15:04] VITALS: RESP 4
--- NOTE | 2022-12-22 17:42 | P.DS ---
Providers Date of admission: 12/18/22 10:14 Expected date of discharge: 12/22/22 Attending physician: Allen Chandler MD Primary care physician: Maximiliano Walden Hospital Course: Discharge Diagnosis: , Was on Hospice Acute exacerbation of COPD Pseudomonas pneumonia Acute hypoxic respiratory failure Hypertensive urgency Acute metabolic encephalopathy Hospital Course: Patient is a 77-year-old male with coronary artery disease, hypertension, dyslipidemia, chronic diastolic congestive heart failure with ejection fraction 60-65%, severe COPD on home O2 at 3 L nasal cannula, pulmonary hypertension, and history of CVA with memory impairment on low-dose Xarelto due to prior pulmonary embolus on who presented via EMS for difficulty in breathing. The presentation to the ER he was in respiratory distress with a respiratory rate of 24, heart rate of 140, and was requiring BiPAP. Chest x-ray demonstrated atypical pneumonia. Laboratory analysis was remarkable for white blood cell count of 16.5, potassium 5.7, BUN 35, creatinine 1.33, troponin 0.025. At that time influenza A/B/RSV/COVID-19 testing was negative. Patient was diagnosed with pneumonia resulting in sepsis and COPD exacerbation. He was started on antibiotics, steroids, and arrangements were made for admission to the telemetry unit. Pulmonary and cardiology were consulted. He was continued on broad-spe ctrum antibiotics and steroids as well as optimize bronchodilators. He was extubated on 12/11. He did require BiPAP and Airvo after extubation. He was very slow to improve and palliative care was consulted. Due to worsening clinical status, family decided to pursue hospice/comfort care measures only. He was admitted to [facility]. He passed peacefull on 12/22/22 at 1740. For Physical Exam see progress note same date. A total of 15 minutes of time were spent preparing this complex discharge summary. Patient was discharged on 12/22/22. This dictation was prepared using [employer] voice recognition software. Though every attempt is made to correct errors during during dictation some may still exist. Patient Condition at Discharge: Stable Plan - Discharge Summary New Discharge Prescriptions: No Action oxyCODONE-APAP 10-325MG [Percocet 10-325 mg] 1 tab PO TID-W/MEALS Ipratropium-Albuterol Nebulize [Duoneb 0.5 mg-3 mg/3 ml Soln] 3 ml INHALATION RT-QID PRN PRN Reason: Shortness Of Breath predniSONE 10 mg PO DAILY Rivaroxaban [Xarelto] 2.5 mg PO BID Gabapentin [Neurontin] 600 mg PO TID Albuterol Sulfate [Albuterol Sulfate Hfa] 2 puff INHALATION RT-QID PRN PRN Reason: Shortness Of Breath Metoprolol Tartrate [Lopressor] 12.5 mg PO BID Discharge Medication List Gabapentin [Neurontin] 600 mg PO TID 11/24/21 [History] Rivaroxaban [Xarelto] 2.5 mg PO BID 11/24/21 [History] oxyCODONE-APAP 10-325MG [Percocet 10-325 mg] 1 tab PO TID-W/MEALS 11/24/21 [History] Albuterol Sulfate [Albuterol Sulfate Hfa] 2 puff INHALATION RT-QID PRN 12/09/22 [History] Ipratropium-Albuterol Nebulize [Duoneb 0.5 mg-3 mg/3 ml Soln] 3 ml INHALATION RT-QID PRN 12/09/22 [History] Metoprolol Tartrate [Lopressor] 12.5 mg PO BID 12/09/22 [History] predniSONE 10 mg PO DAILY 12/09/22 [History]
== END 2022-12-22 18:40 | disposition expired | DRG 951 ==
LOC: 2SICU 10:14 → 4SSUR 19:01
PROVIDERS: ADMIT Student in an Organized Health Care Education/Training Program; ATTEND Student in an Organized Health Care Education/Training Program
DX: Z51.5 Encounter for palliative care (principal); A41.9 Sepsis, unspecified organism; G93.41 Metabolic encephalopathy; J15.1 Pneumonia due to Pseudomonas; J96.01 Acute respiratory failure with hypoxia; J44.1 Chronic obstructive pulmonary disease with (acute) exacerbation; I50.32 Chronic diastolic (congestive) heart failure; J44.0 Chronic obstructive pulmonary disease with (acute) lower respiratory infection; E78.5 Hyperlipidemia, unspecified; I11.0 Hypertensive heart disease with heart failure; I16.0 Hypertensive urgency; I25.10 Atherosclerotic heart disease of native coronary artery without angina pectoris; I27.20 Pulmonary hypertension, unspecified; Z20.822 Contact with and (suspected) exposure to COVID-19; Z86.711 Personal history of pulmonary embolism; Z86.73 Personal history of transient ischemic attack (TIA), and cerebral infarction without residual deficits; Z99.81 Dependence on supplemental oxygen
CPT/HCPCS: 94640